=== PATIENT | male | born 1985 | race African-American/Black ===

== ENCOUNTER 2019-07-05 15:32 | Emergency (ER) | payer SELFPAY ==
[2019-07-05] VITALS (8 sets, daily range): BP systolic 171–221; BP diastolic 126–164; PULSE 64–76; RESP 16–21; TEMP 36.9; O2SAT 99–100
--- NOTE | ~2019-07-05 | XR_ITS ---
EXAMINATION: XR chest 2V DATE: 07/05/2019 17:07 INDICATION: Hypertension. Headache. TECHNIQUE: Frontal and lateral views of the chest were obtained. COMPARISON: None. FINDINGS: There is no pneumonia, pleural effusion, or pneumothorax. Cardiomegaly is noted. IMPRESSION: 1. Cardiomegaly. 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 ASTER IMPRESSION: 1. Cardiomegaly.
--- NOTE | ~2019-07-05 | CT_ITS ---
EXAMINATION: CT brain wo con INDICATION: Headache COMPARISON: 09/12/18 TECHNIQUE: Standard unenhanced head CT. The dose-length product (DLP) was 605.33 mGy-cm. The mA was a djusted according to patient size. Iterative reconstruction technique was employed. FINDINGS: There is no intracranial hemorrhage, acute infarction, or abnormal mass lesion. The ventric les are normal. There is no abnormal mass effect or midline shift. The reese-white matter differentiat ion is normal. The basal cisterns are patent. The orbits are normal. The paranasal sinuses, mastoids and calvarium are normal. IMPRESSION: 1. No acute intracranial abnormality. 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
--- NOTE | 2019-07-05 16:10 | PC.NURSE ---
Spoke with ERP Ulices in regards to getting a physician signed up to see pt, due to his repeated bp's of 219/142 with cerda and visual changes. ERP Ulices states to put a CT Brain w/o contrast in and one of the physicians will be in to see him. Order placed.
--- NOTE | 2019-07-05 16:47 | ED.HA ---
HPI - Headache General Chief Complaint: Headache Stated Complaint: JUAREZ Time Seen by Provider: 07/05/19 16:32 Source: patient and RN notes reviewed Mode of arrival: other Limitations: no limitations History of Present Illness HPI Narrative: Pt is a 34 y/o male who presents to the ED with c/o a headache that began yesterday morning. Pt took an Advil yesterday, but has had no relief of his sx. He notes that his pain has gotten worse and he thought he could sleep it off. He notes that he has not slept since yesterday at 9 am. Pt has a hx of HTN, but he states that he only takes his medication whenever he starts to have a headache. He states that he took his HTN medication yesterday, but he denies taking the medication today. Pt denies being around any sick contacts. 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 Pt also reports a subjective fever, diaphoresis, back pain, body aches, chills, nausea, vomiting, and a poor appetite, but denies a cough, congestion, sinus pressure, sore throat, SOB, CP, diarrhea, numbness, weakness, and dysuria. A nurse checked with the pharmacy and the pt last had his Lisinopril 20 mg filled was in August 2018 whenever he was discharged from [place] ED. elicited complaint: headache Pertinent past history: hypertension Onset (ago): day(s) (1) Location: generalized Relieving factors: nothing Associated symptoms: fever (subjective), nausea, vomiting and other (diaphoresis, back pain, body aches, chills, poor appetite) Treatments prior to arrival: none Related Data Home Medications Medication Instructions Recorded Confirmed lisinopril 20 mg PO DAILY 07/05/19 Allergies Allergy/AdvReac Type Severity Reaction Status Date / Time No Known Allergies Allergy Unverified 09/12/18 18:22 Review of Systems Review of Systems: All systems reviewed & are unremarkable except as noted in HPI and below Constitutional: Constitutional: Reports body ache(s), Reports chills, Reports fever(s) (subjective) and Reports poor appetite ENT: Denies sinus pressure, Denies sore throat and Denies other (congestion) Cardiovascular: Cardiovascular: Denies chest pain and Reports diaphoresis Respiratory: Respiratory: Denies cough and Denies dyspnea Gastrointestinal: Gastrointestinal: Denies diarrhea, Reports nausea and Reports vomiting Genitourinary: Genitourinary: Denies dysuria Musculoskeletal: Musculoskeletal: Reports back pain Neurologic: Reports headache(s), Denies numbness and Denies weakness PMFSH Past Medical History Medical History (Updated 07/05/19 @ 19:11 by Tiffanie Fernandez MD) HTN (hypertension) Surgical History Surgical History (Updated 07/05/19 @ 17:49 by Airam Bacon) No history of previous surgery Social History Social History (Updated 07/05/19 @ 17:49 by Airam Bacon) Smoking status: Never smoker Gender identity (if verbalized by the patient): Male Exam Const: General: cooperative, no acute distress and alert Nutritional Appearance: well nourished Orientation/consciousness: patient oriented x3 Limitations: no limitations HENMT: Mouth: Yes lip normal Throat: other (throat normal) Eyes: Conjunctivae: conjunctivae normal Pupils: Equal, round and reactive pupils present Resp: Effort & Inspection: normal respiratory effort Auscultation: clear to auscultation bilaterally Cardio: Rate: regular rate Rhythm: regular rhythm GI: GI Palp: Yes Soft to palpation and No Tenderness to palpation present (GI) Auscultation: normal bowel sounds Skin: General skin exam: normal color Neuro: General: patient oriented x3 Cognition (Neuro): normal cognition Speech: normal speech Extrem: General: normal to inspection, full ROM and no clubbing, cyanosis or edema Psych: Mental Status: mental status grossly normal Affect: normal affect Attitude: cooperative Course Course Emergency Course: Patient with uncontrolled hypertension. Patient has been noncompliant with medications and
[2019-07-05] MEDS: METOCLOPRAMIDE HCL INJ 10 MG/2 ML VIAL IV PUSH (17:03)
[2019-07-05] MEDS: KETOROLAC 30 MG/ML VIAL (*BKC) IV PUSH (17:03)
[2019-07-05 17:17] LABS: Basophils Percent Auto 0.4 % (0.2-1.2); Hematocrit 48.8 % (42.0-52.0); Hemoglobin 15.9 g/dL (14.0-18.0); Immature Granulocyte Absolute 0.01 K/mm3 (0.00-0.031); Immature Granulocyte Percent A 0.2 % (0-0.5); Lymphocytes Absolute Auto 0.49 K/mm3 (0.9-3.2); Lymphocytes Percent Auto 9.7 % (18.3-44.2); Mean Corpuscular HGB Conc 32.6 g/dl (32-36); Mean Corpuscular Hemoglobin 28.5 pg (26-34); Mean Corpuscular Volume 87.5 fl (80-100); Mean Platelet Volume 10.3 fl (7.4-10.4); Monocytes Absolute Auto 0.5 K/mm3 (0.1-0.6); Monocytes Percent Auto 9.7 % (2.6-8.5); Platelet Count Result 237 k/mm3 (150-375); Red Blood Count 5.58 M/mm3 (4.6-6.20); Red Cell Distribution Width 13.2 % (11.5-14.5)
[2019-07-05 17:30] LABS: Alanine Aminotransferase 31 U/L (4-50); Albumin Level 4.7 g/dL (3.5-5.1); Alkaline Phosphatase 91 U/L (38-126); Aspartate Amino Transferase 39 U/L (17-59); Bilirubin,Total 0.7 mg/dL (0.2-1.3); Blood Urea Nitrogen 9 mg/dL (9-20); Calcium 9.2 mg/dL (8.4-10.2); Carbon Dioxide 29 mmol/L (22-30); Chloride 97 mmol/L (98-107); Estimated CRCL calculation 106 ml/min; Estimated Glomerular Filt Rate > 60; Glucose 117 mg/dL (75-110); Potassium 3.5 mmol/L (3.4-5.0); Sodium 136 mmol/L (137-145)
[2019-07-05 17:39] LABS: Add Urine Microscopic? YES; Appearance Urine Clear (Clear); Bacteria Urine Trace /hpf; Bilirubin Urine Negative (Negative); Blood Urine Negative (Negative); Color Urine Yellow (Yellow); Glucose Urine UA Negative (Negative); Ketones Urine 1+ mg/dL (Negative); Leukocyte Esterase Ur Negative LEU/UL (Negative); Mucus Urine Heavy /lpf; Nitrate Urine Negative (Negative); Protein Urine 2+ mg/dL (Negative); RBC Urine 0-2 /hpf (0-2)
[2019-07-05 17:40] LABS: Specific Grav Ur 1.034 (1.001-1.035)
--- NOTE | 2019-07-05 18:02 | PC.NURSE ---
Spoke with rep from [facility] in [place], states that pt last filled a script for Lisinopril 20mg last August 2018. HO Fernandez informed, awaiting new orders.
--- NOTE | 2019-07-05 18:30 | PC.NURSE ---
Spoke with HO Fernandez, again, about treating pt BP of 177/126. HO Fernandez states We will not be treating his chronic hypertension here because that will not solve his problem of high blood pressure, he needs to be compliant with the blood pressure medication he is prescribed. There are studies that show that us giving a stat dose to lower his BP will not solve this problem, so I will treat his headache and then see how he feels. He is not having a stroke or a heart attack, so I'm not going to treat the BP.
[2019-07-05] MEDS: AMLODIPINE BESYLATE 5 MG TABLET 10 MG PO (19:09)
== END 2019-07-05 19:19 | disposition home or self-care (01) ==
PROVIDERS: Emergency Provider Emergency Medicine
DX: R51 Headache (principal); I10 Essential (primary) hypertension
CPT/HCPCS: 36415; 70450; 71046; 80053; 81001; 85025; 87804; 96374; 96375; 99284; A9270; J1885; J2765

== ENCOUNTER 2021-08-09 10:57 | Observation (INO) | payer MEDICAID, SELFPAY ==
[2021-08-09] VITALS (43 sets, daily range): BP systolic 158–215; BP diastolic 112–174; PULSE 71–108; RESP 12–43; TEMP 36.7–36.9; O2SAT 90–100; BMI 26.4; BMI 26.3
--- NOTE | ~2021-08-09 | CT_ITS ---
EXAMINATION: CT abdomen pelvis w con DATE: 08/09/2021 12:31 INDICATION: Upper abdominal pain. TECHNIQUE: Computed tomography (CT) of the abdomen and pelvis was performed with 100 mL Omnipaque 350 intravenous contrast. Automated exposure control and iterative reconstruction technique were employe d. The dose-length product was 688.53 mGy-cm. COMPARISON: None. FINDINGS: The visualized portions of the lung bases demonstrate septal thickening and groundglass [place], consistent with pulmonary edema. There is mild atelectasis bilaterally. There is a small righ t pleural effusion. Cardiomegaly is noted. No pericardial effusion. The liver is normal. The gallblad karsten is normal in size. Gallbladder wall thickening is likely secondary to interstitial edema. The spl een, pancreas, adrenal glands, and kidneys are normal. There is diverticulosis of the colon without e vidence of diverticulitis. The appendix is normal. There are no dilated loops of bowel. There is a sm all volume of pelvic ascites. There are no pathologically enlarged lymph nodes. There is mild thoraci c spondylosis. IMPRESSION: 1. Mild pulmonary edema. 2. Small right pleural effusion. 3. Cardiomegaly. 4. Small volume of pelvic ascites. 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
--- NOTE | ~2021-08-09 | XR_ITS ---
EXAMINATION: XR chest 1V portable DATE: 08/09/2021 12:52 INDICATION: Chest of breath. Chest tightness. TECHNIQUE: A single frontal view of the chest was obtained. COMPARISON: Chest 2 views 07/05/2019, CT abdomen and pelvis 08/09/2021 FINDINGS: There is a diffuse interstitial pattern, consistent with mild pulmonary edema. No pleural e ffusion or pneumothorax. Cardiomegaly is noted. IMPRESSION: 1. Mild pulmonary edema. 2. Cardiomegaly. 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
[2021-08-09 11:25] LABS: Basophils Percent Auto 0.6 % (0.2-1.2); Eosinophils Absolute Auto 0.1 K/mm3 (0-0.3); Hematocrit 40.9 % (42.0-52.0); Hemoglobin 13.1 g/dL (14.0-18.0); Immature Granulocyte Absolute 0.02 K/mm3 (0.00-0.031); Immature Granulocyte Percent A 0.3 % (0-0.5); Lymphocytes Absolute Auto 1.39 K/mm3 (0.9-3.2); Lymphocytes Percent Auto 22.1 % (18.3-44.2); Mean Corpuscular Hemoglobin 27.6 pg (26-34); Mean Corpuscular Volume 86.1 fl (80-100); Mean Platelet Volume 10.2 fl (7.4-10.4); Monocytes Absolute Auto 0.3 K/mm3 (0.1-0.6); Monocytes Percent Auto 5.4 % (2.6-8.5); Neutrophils Absolute Auto 4.5 K/mm3 (1.3-6.7); Neutrophils Percent Auto 70.6 % (45.5-73.1); Platelet Count Result 294 k/mm3 (150-375); Red Blood Count 4.75 M/mm3 (4.6-6.20); Red Cell Distribution Width 14.7 % (11.5-14.5); White Blood Count 6.3 K/mm3 (4.5-10.0)
[2021-08-09 11:38] LABS: Alanine Aminotransferase 51 U/L (4-50); Alkaline Phosphatase 105 U/L (38-126); Anion Gap 7 mmol/L (8-16); Aspartate Amino Transferase 41 U/L (17-59); Bilirubin,Total 1.4 mg/dL (0.2-1.3); Blood Urea Nitrogen 17 mg/dL (9-20); Calcium 8.8 mg/dL (8.4-10.2); Carbon Dioxide 23 mmol/L (22-30); Chloride 107 mmol/L (98-107); Estimated CRCL calculation 48 ml/min; Estimated Glomerular Filt Rate 43; Glucose 113 mg/dL (65-110); Lipase 44 U/L (23-300); Potassium 4.2 mmol/L (3.4-5.0); Sodium 137 mmol/L (137-145)
[2021-08-09 11:48] LABS: Add Urine Microscopic? YES; Appearance Urine Cloudy (Clear); Bilirubin Urine Negative (Negative); Blood Urine Negative (Negative); Color Urine Amber (Yellow); Glucose Urine UA Negative (Negative); Ketones Urine Negative (Negative); Leukocyte Esterase Ur Negative LEU/UL (Negative); Mucus Urine Rare /lpf; Nitrate Urine Negative (Negative); Protein Urine 3+ mg/dL (Negative); RBC Urine 0-2 /hpf (0-2); Specific Grav Ur 1.024 (1.001-1.035); WBC Urine 0-3 /hpf
--- NOTE | 2021-08-09 12:12 | ED.ABDPAIN ---
HPI - Abdominal Pain General Chief Complaint: Abdominal Pain Stated Complaint: Shortness of breath abd pain Time Seen by Provider: 08/09/21 11:40 Source: patient, family and RN notes reviewed Mode of arrival: ambulatory Limitations: no limitations History of Present Illness HPI narrative: Patient is 36 years old -[place] male presents to the ED with shortness of breath for at least 2 weeks, epigastric pain for at least 1 week, patient denies any fever, chills, nausea, vomiting, diarrhea, constipation, urinary symptoms, chest pain or back pain. History of hypertension on Norvasc and lisinopril, patient reports that his blood pressure usually runs high all the time since he was a child. Blood pressure on arrival was 215/166. Patient denies a history of Covid infection or Covid vaccination. Last blood pressure intake was yesterday Related Data Home Medications Medication Instructions Recorded Confirmed lisinopril 20 mg PO DAILY 07/05/19 Allergies Allergy/AdvReac Type Severity Reaction Status Date / Time No Known Allergies Allergy Unverified 09/12/18 18:22 Review of Systems Review of Systems: CONSTITUTIONAL: Denies fever, chills, or sweats. EYES: Denies visual changes, redness, or discharge. ENT: Denies rhinorrhea, congestion, sore throat, or otalgia. CARDIOVASCULAR: Denies chest pain, palpitations, or edema. RESPIRATORY: Denies cough or dyspnea. GASTROINTESTINAL: Denies abdominal pain, nausea, vomiting, or diarrhea. GENITOURINARY: Denies dysuria or hematuria. SKIN: Denies rash or itching. MUSCULOSKELETAL: Denies back pain, joint pain, or myalgia. NEUROLOGIC: Denies headache, numbness, or weakness. PSYCHIATRIC: Denies anxiety or depression. PMFSH Past Medical History Medical History HTN (hypertension) Surgical History Surgical History No history of previous surgery Social History Social History Smoking status: Never smoker Gender identity (if verbalized by the patient): Male Exam Narrative: General appearance: Well-developed, well-nourished Skin: Normal color Head: Normocephalic, nontraumatic Eyes: Clear conjunctiva ENT: Oropharynx normal, ears normal, nose normal Neck: Supple, nontender Chest and respiratory: Airway patent, no respiratory distress, no accessory muscle use Heart: Regular rate/rhythm Abdomen: Severe diffuse tenderness epigastric right upper quadrant and right lower quadrant Vascular: Normal peripheral pulses, normal capillary refill. 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 Date: 08/09/21 Time: 14:14 Vital Signs Vital signs: Vital Signs Temperature 36.8 C 08/09/21 11:03 Pulse Rate 108 H 08/09/21 11:03 Respiratory Rate 32 H 08/09/21 11:03 Blood Pressure 215/166 H 08/09/21 11:03 Pulse Oximetry 97 08/09/21 11:03 Temperature 36.8 C 08/09/21 11:03 Pulse Rate 77 08/09/21 13:00 Respiratory Rate 29 H 08/09/21 13:00 Blood Pressure 184/134 H 08/09/21 12:59 Pulse Oximetry 94 08/09/21 13:00 MDM - Abdominal Pain Lab Data Result diagrams: 08/09/21 11:20 08/09/21 11:20 Labs: Lab Results 08/09/21 08/09/21 08/09/21 Range/Units 11:20 11:20 11:20 WBC 6.3 (4.5-10.0) K/mm3 RBC 4.75 (4.6-6.20) M/mm3 Hgb 13.1 L (14.0-18.0) g/dL Hct 40.9 L (42.0-52.0) % M
[2021-08-09] MEDS: LABETALOL HCL INJ 100 MG/20 ML VIAL 20 MG IV PUSH ×2 (12:17→13:00)
[2021-08-09 13:37] LABS: NT Pro B Type Natriuretic Pept 5720 pg/mL (5-100)
[2021-08-09] MEDS: lisinopriL 20 MG TABLET PO (14:10)
[2021-08-09] MEDS: amLODIPine BESYLATE 5 MG TABLET 10 MG PO (14:10)
[2021-08-09] MEDS: FUROSEMIDE INJ 100 MG/10 ML VIAL 80 MG IV PUSH (14:14)
[2021-08-09] MEDS: NITROGLYCERIN OINTMENT 1 INCH DOSE TRANSDERM ×2 (14:15→14:16)
--- NOTE | 2021-08-09 14:15 | ECG_ITS ---
Measurements Intervals [place] Rate: 80 P: 32 ME: 176 QRS: -87 QRSD: 112 T: 189 QT: 457 QTc: 528 Interpretive Statements SINUS RHYTHM LEFT ATRIAL ENLARGEMENT [-0.15mV P WAVE IN V1/V2] MARKED LEFT AXIS DEVIATION [QRS AXIS < -30] POSSIBLE ANTERIOR MYOCARDIAL INFARCTION , PROBABLY OLD [30 ms Q WAVE IN V3/V4, OR R < 0.2 mV IN V4] MARKED T-WAVE ABNORMALITY, CONSIDER LATERAL ISCHEMIA [-0.5+ mV T WAVE IN I/aVL/V5/V6] NO PREVIOUS ECG AVAILABLE FOR COMPARISON Electronically Signed On 08-09-2021 18:47:05 CDT by Tami Donohue M.D.
[2021-08-09 14:44] LABS: Troponin I 0.053 ng/mL (0.000-0.034)
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
[2021-08-09 15:38] LABS: Amphetamine Screen Urine Negative (Negative); Barbiturate Screen Urine Negative (Negative); Benzodiazepines Screen Urine Negative (Negative); Cannabinoid Screen Urine Positive (Negative); Cocaine Screen Urine Negative (Negative); Methadone Screen Urine Negative (Negative); Opiate Screen Urine Negative (Negative); Phencyclidine Screen Urine Negative (Negative)
[2021-08-09] MEDS: ASPIRIN 81 MG CHEWABLE TABLET 324 MG PO (16:11)
--- NOTE | 2021-08-09 16:20 | ADMGEN ---
This patient, Manuel Headley, was admitted to IMU Room 207-01 at 1617 on 08/09/2021. Report received from Cherelle RAWLS. Patient/family oriented to hospital policies and general routines including ID bracelet, bed and alarms, visiting hours, pain management, procedures, bathroom and other care routines, personal items, smoking policy, room service/diet, and visiting hours. Information on how to activate the Rapid Response Team has been discussed. Patient/Family are encouraged to report perceived risks to care and to ask questions if they do not understand what they are told or what they should do.
[2021-08-09] MEDS: FUROSEMIDE INJ 40 MG/4 ML VIAL IV PUSH (21:15)
[2021-08-10] VITALS (16 sets, daily range): BP systolic 152–172; BP diastolic 113–136; PULSE 72–100; RESP 15–24; TEMP 36.2–36.9; O2SAT 93–100
[2021-08-10] MEDS: NITROGLYCERIN OINTMENT 1 INCH DOSE TRANSDERM ×5 (00:18→23:29)
[2021-08-10 05:22] LABS: Troponin I 0.044 ng/mL (0.000-0.034)
[2021-08-10 05:45] LABS: Anion Gap 3 mmol/L (8-16); Blood Urea Nitrogen 21 mg/dL (9-20); Calcium 8.2 mg/dL (8.4-10.2); Carbon Dioxide 29 mmol/L (22-30); Chloride 103 mmol/L (98-107); Estimated CRCL calculation 44 ml/min; Estimated Glomerular Filt Rate 39; Glucose 113 mg/dL (65-110); Potassium 3.4 mmol/L (3.4-5.0); Sodium 135 mmol/L (137-145)
--- NOTE | 2021-08-10 06:00 | ECG_ITS ---
Measurements Intervals [place] Rate: 79 P: 27 MD: 166 QRS: -55 QRSD: 118 T: 195 QT: 441 QTc: 507 Interpretive Statements SINUS RHYTHM LEFT ATRIAL ENLARGEMENT [-0.15mV P WAVE IN V1/V2] MARKED LEFT AXIS DEVIATION [QRS AXIS < -30] LEFT VENTRICULAR HYPERTROPHY AND ST-T CHANGE [VOLTAGE CRITERIA PLUS ST/T ABNORMALITY] COMPARED TO ECG 08/09/2021 14:42:15 NO SIGNIFICANT DIFFERENCE Electronically Signed On 08-10-2021 16:08:34 CDT by Amauri Lees M.D.
[2021-08-10] MEDS: PERFLUTREN LIPID MICROSPHERES 1.5 ML VIAL DILUTED TO 10 ML TOTAL VOLUME IV PUSH (08:44)
--- NOTE | 2021-08-10 08:44 | IVDEFINITY ---
Prior to administration of IV Definity the patient was educated on the risks and benefits of the imaging enhancing agent including potential adverse side effects. The patient verbalized understanding. Allergies were verified. No exclusion criteria were identified and at least one of the following inclusion criteria were met: 1) physician request, 2) patient technically difficult to image (per the [place] [employer]chocardi[employer] guidelines of two or more segments not discernable within the apical view), or 3) questionable left ventricular function. ?
[2021-08-10] MEDS: ASPIRIN 81 MG CHEWABLE TABLET PO (10:24)
[2021-08-10] MEDS: FUROSEMIDE INJ 40 MG/4 ML VIAL IV PUSH (10:24)
--- NOTE | 2021-08-10 10:41 | PM.IMPN ---
Progress Note: A&P Assessment and Plan (1) CHF (congestive heart failure): Qualifiers: Heart failure chronicity: acute Heart failure type: unspecified Qualified Code(s): I50.9 - Heart failure, unspecified Code(s): I50.9 - Heart failure, unspecified Status: Acute Assessment and Plan: MONITOR VITAL SIGNS, I&OS, BUN/CREATININE, DAILY WEIGHTS, NEURO STATUS AND PATIENT IS A FALL RISK MONITOR SERUM ELECTROLYTES, KEEP SERUM POTASSIUM>4 AND SERUM MAGNESIUM>2 AND CBC Pending ECHOCARDIOGRAM LASIX 40 MG IV Q12H CONSULT CARDIOLOGY FOR FURTHER MANAGEMENT, APPRECIATE ASSISTANCE AND RECOMMENDATIONS (2) MIHAI (acute kidney injury): Code(s): N17.9 - Acute kidney failure, unspecified Status: Acute Assessment and Plan: MONITOR RENAL FUNCTION, DUE TO THE PULMONARY EDEMA FOUND IN ITS IMAGING HOLDING ON IV FLUIDS, REASSESS PATIENT'S CLINICAL COURSE Possibly related to hypertensive emergency (3) Chest pain: Code(s): R07.9 - Chest pain, unspecified Status: Acute Assessment and Plan: MONITOR VITAL SIGNS, I&OS, CHEST PAIN, SHORTNESS OF BREATH AND PATIENT IS A FALL RISK MONITOR SERIAL TROPONINS, SERUM ELECTROLYTES, AND CBC KEEP SERUM POTASSIUM >4 AND KEEP MAGNESIUM >2 CARDIOLOGY CONSULTED, APPRECIATE ASSISTANCE AND RECOMMENDATIONS NITRO PASTE APPLIED TO THE CHEST CONSIDER ADDING ATORVASTATIN 40 MG DAILY, ASPIRIN 81 MG DAILY AND METOPROLOL TARTRATE 25 MG P.O. B.I.D. (4) Hypertensive emergency: Code(s): I16.1 - Hypertensive emergency Status: Acute Assessment and Plan: RESUME ANTIHYPERTENSIVE MEDICATIONS P.R.N. HYDRALAZINE Nitro placed applied to chest Patient has end-organ dysfunction, renal function worsening, elevated troponin, and BNP Subjective Date/time seen: 08/10/21 10:41 Patient is alert and oriented this morning. He has an echocardiogram performed this morning. Patient denies any acute chest pain, shortness a breath, lower extremity swelling. Patient reports increased urinary output. However he is receiving 40 of furosemide b.i.d.. Pending paperwork from [facility]. No acute events overnight Review of Systems Review of Systems: All systems reviewed & are unremarkable except as noted in HPI and below Exam Narrative: General: No acute distress. Mental Status: Awake, alert and oriented to person, place, and time with clear speech. Skin: Skin in warm, dry and intact without rashes or lesions. Head: Normocephalic and atraumatic. Eyes: Conjunctivae are clear without exudates or hemorrhage. Sclera is non-icteric. EOM are intact, PERRLA. Ears: The external ear and canal are non-tender and without swelling or discharge. Nose: Nasal mucosa is pink and moist. Septum midline. Nares patent bilaterally. Throat: Oral mucosa pink and moist with good dentition. Tongue midline. Neck: The neck supple without adenopathy. Trachea midline. No JVD. Cardiac: S1 and S2 regular rate and rhythm. No murmurs, gallops, or rubs auscultated. Respiratory: Chest wall symmetric, nontender and without deformity or trauma. Respirations even and unlabored. Lung sounds are clear to auscultation in all lobes bilaterally without wheezes, rhonchi, or rales. Abdominal: Abdomen soft, round and non-tender to palpation. Bowel sounds present and normoactive in all 4 quadrants. Spine: Neck and back with grossly normal curvature, no deformity in appearance or signs of trauma. Extremities: Upper and lower extremities atraumatic without tenderness or deformity. Full range of motion and muscle strength 5/5 to all extremities bilaterally. Neurological: Full and symmetric motor and light touch sensation bilaterally. Cranial nerves II-XII grossly intact. Objective Data Vital Signs Vital Signs: Vital Signs - 24 hr 08/09/21 11:03 08/09/21 11:06 08/09/21 11:09 Temperature 98.2 F Pulse Rate 108 H 102 H 103 H Respiratory Rate 32 H 27 H 35 H Blood Pressure 215/166 H 210/174 H Pulse Ox
--- NOTE | 2021-08-10 12:40 | PM.CNCAR ---
Assessment and Plan Additional Plan 36-year-old man unfortunately with longstanding hypertension and appears to have evidence of hypertensive heart disease as well as probably hypertensive kidney disease as well. His blood pressure was exceedingly high on admission. He has questionable compliance with this medication. The amlodipine and lisinopril have been improved. Echocardiogram as mentioned above has been performed earlier today but has not yet been interpreted. I would like to review that examination before making further recommendations regarding his blood pressure regimen. Troponin levels were done and are not indicative of an acute coronary syndrome. He has a modest low level elevation in troponin which is related to his hypertension in combination with his renal insufficiency. It is exceedingly important that this patient has follow-up with hypertension specialists were upon discharge from the hospital this unfortunately young man appears to have hypertensive heart disease well as hypertensive renal disease needs to have close follow-up and meticulous control of his blood pressure upon discharge. His prognosis for the senior living is extremely poor if the pattern of emergency rooms treating his blood pressure continues Amauri Lees MD [facility] History of Present Illness History of Present Illness Consult date/time: 08/10/21 12:40 Consult reason: hypertension Reason For Visit: CHF, Uncontrolled Hypertension, ELevated troponin, Narrative: This is a 36-year-old black male am seeing this afternoon at the request of the hospitalist for assistance with the evaluation and management of hypertension and also because of an elevation in his troponin level that was sampled on admission. This patient has longstanding hypertension since he says he was a teenager. He does not have a physician outside of the hospital to provide follow-up of his hypertension he says that when he is feeling poorly he comes to the hospital emergency room and receives treatment or it is sometimes admission to the hospital. He according to the records he has prescriptions for amlodipine and lisinopril for this. There is questionable compliance with these medications. He states that he was feeling increasingly short of breath in several days prior to coming in the hospital because of shortness of breath he came to this hospital's emergency room and was evaluated. His evaluation showed his blood pressure to be exceedingly high and he had chest x-ray and physical exam evidence of mild pulmonary congestion. His laboratory data also shows evidence of some renal insufficiency and troponin level was elevated to a low level but has been flat. His chest x-ray my personal review shows moderate enlargement of the cardiac silhouette. He is comfortable at this time offers no complaints he has been treated with his medications including lisinopril amlodipine and p.r.n. labetalol. He has also been given some furosemide. He says his breathing is much better at this time. ECG shows sinus rhythm with impressive LVH with secondary repolarization abnormalities. An echocardiogram was ordered and was done earlier today which has not yet been interpreted. In this setting I am seeing him in consultation. Review of Systems Constitutional: Constitutional: Reports no additional constitutional complaints Eyes: Eyes: Reports no additional eye complaints ENT: Reports system reviewed and no additional complaints, except as documented Cardiovascular: Cardiovascular: Reports as per HPI Respiratory: Respiratory: Reports dyspnea on exertion Gastrointestinal: Gastrointestinal: Reports no additional gastrointestinal complaints Musculoskeletal: Musculoskeletal: Reports no additional musculoskeletal complaints Integumentary/Breasts: Skin/Breast: Reports system reviewed and no additional complaints, except as docu Neurologic: Reports system reviewed and no additional complaints, except as documented
--- NOTE | 2021-08-10 14:58 | ECHO_ITS ---
Patient Info Name: Manuel Headley Age: 36 years : 1985 Gender: Male Ht: 72 in Wt: 194 lbs BSA: 2.13 m2 HR: 79 bpm BP: 158 / 113 mmHg Heart Rhythm: Sinus Rhythm Technical Quality: Fair Exam Date: 08/10/2021 6:53 AM Exam Location: [facility] Pulmonary Patient Status: Outpatient Admit Date: 08/09/2021 Staff Ordering Physician: Susie Cota APRN [employer]locking Pavement Installer: Sharron Odell RDCS Attending Provider: Giovanna Bruce MD Referring Physician: Cipriano WEATHERS; Exam Type: CA echo dop color flow w con Study Info Indications - sob Complete two-dimensional, color flow and Doppler transthoracic echocardiogram is performed with contrast to opacify the left ventricle and to improve the deliniation of the left ventricle endocardial borders. Contrast/Agitated Saline Contrast/Ag. Saline: Definity Amount: 2.00 ml Administered By: Sharron Odell RDCS Existing IV Access: Yes IV Access Condition: patent with no signs of infiltration Summary 1. There is moderate concentric increased left ventricular wall thickness. 2. Left ventricular chamber dimension is mildly enlarged. 3. Left ventricular systolic function is moderately reduced, estimated at 30-35%. 4. Definity contrast used to improve visualization. 5. Left atrial chamber dimension is severely enlarged. 6. There is trace mitral valve regurgitation. Left Ventricle Left ventricular chamber dimension is mildly enlarged. Left ventricular systolic function is moderately reduced, estimated at 30-35%. There is moderate concentric increased left ventricular wall thickness. The left ventricular diastolic function is grade II diastolic dysfunction. Definity contrast used to improve visualization. Right Ventricle Right ventricular chamber dimension is normal. Left Atria Left atrial chamber dimension is severely enlarged. Right Atria Right atrial chamber dimension is mildly enlarged. Aortic Valve The aortic valve is normal. Pulmonic Valve The pulmonic valve is normal. Mitral Valve The mitral valve has normal leaflets. There is trace mitral valve regurgitation. Tricuspid Valve The tricuspid valve leaflets are normal. Pericardium/Pleural The pericardium appears normal. Aorta The aortic root size at the sinus of Valsalva is normal. Left Ventricular Outflow Tract Name Value Normal LVOT 2D LVOT Diameter 2.39 cm LVOT Doppler LVOT Peak Gradient 3 mmHg LVOT Mean Gradient 1 mmHg LVOT VTI 13.09 cm LVOT VTI/AV VTI Ratio 0.66 LVOT Stroke Volume 58.59 ml LVOT CO 4.17 l/min LVOT CI 1.96 L/min/m2 Pulmonic Valve Name Value Normal RVOT Doppler
--- NOTE | 2021-08-10 16:18 | PC.NURSE ---
Documentation was done in error under previous nurse name. All documentation from 8 am on August 10, 2021 was performed by me, with the initials CLAUDIA.
[2021-08-10] MEDS: amLODIPine BESYLATE 5 MG TABLET 10 MG PO (16:46)
[2021-08-10] MEDS: lisinopriL 20 MG TABLET PO (16:47)
[2021-08-10] MEDS: carvediloL 12.5 MG TABLET PO (20:03)
[2021-08-11] VITALS (8 sets, daily range): BP systolic 144–170; BP diastolic 100–120; PULSE 65–81; RESP 15–20; TEMP 36.5–37.3; O2SAT 99–100
[2021-08-11 05:07] LABS: Basophils Percent Auto 0.6 % (0.2-1.2); Eosinophils Absolute Auto 0.2 K/mm3 (0-0.3); Eosinophils Percent Auto 2.4 % (0-4.4); Hemoglobin 12.5 g/dL (14.0-18.0); Immature Granulocyte Absolute 0.02 K/mm3 (0.00-0.031); Immature Granulocyte Percent A 0.3 % (0-0.5); Lymphocytes Absolute Auto 1.68 K/mm3 (0.9-3.2); Lymphocytes Percent Auto 24.9 % (18.3-44.2); Mean Corpuscular HGB Conc 32.1 g/dl (32-36); Mean Corpuscular Hemoglobin 27.5 pg (26-34); Mean Corpuscular Volume 85.9 fl (80-100); Mean Platelet Volume 10.1 fl (7.4-10.4); Monocytes Absolute Auto 0.6 K/mm3 (0.1-0.6); Monocytes Percent Auto 8.8 % (2.6-8.5); Neutrophils Absolute Auto 4.3 K/mm3 (1.3-6.7); Platelet Count Result 301 k/mm3 (150-375); Red Blood Count 4.54 M/mm3 (4.6-6.20); Red Cell Distribution Width 14.6 % (11.5-14.5); White Blood Count 6.7 K/mm3 (4.5-10.0)
[2021-08-11 05:19] LABS: Alanine Aminotransferase 35 U/L (4-50); Albumin Level 3.4 g/dL (3.5-5.1); Alkaline Phosphatase 89 U/L (38-126); Anion Gap 4 mmol/L (8-16); Aspartate Amino Transferase 28 U/L (17-59); Bilirubin,Total 0.5 mg/dL (0.2-1.3); Blood Urea Nitrogen 23 mg/dL (9-20); Calcium 8.2 mg/dL (8.4-10.2); Carbon Dioxide 27 mmol/L (22-30); Chloride 104 mmol/L (98-107); Estimated CRCL calculation 46 ml/min; Estimated Glomerular Filt Rate 41; Glucose 91 mg/dL (65-110); Magnesium 1.9 mg/dL (1.6-2.3); Potassium 3.9 mmol/L (3.4-5.0); Sodium 135 mmol/L (137-145)
[2021-08-11] MEDS: NITROGLYCERIN OINTMENT 1 INCH DOSE TRANSDERM ×2 (06:22→12:48)
[2021-08-11] MEDS: carvediloL 12.5 MG TABLET PO (08:41)
[2021-08-11] MEDS: FUROSEMIDE 20 MG TABLET PO (08:41)
[2021-08-11] MEDS: amLODIPine BESYLATE 5 MG TABLET 10 MG PO (08:41)
[2021-08-11] MEDS: lisinopriL 20 MG TABLET PO (08:42)
[2021-08-11] MEDS: ASPIRIN 81 MG CHEWABLE TABLET PO (08:43)
--- NOTE | 2021-08-11 12:09 | PM.PNCARD ---
Progress Note: A&P Assessment and Plan (1) CHF (congestive heart failure): Qualifiers: Heart failure chronicity: acute Heart failure type: unspecified Qualified Code(s): I50.9 - Heart failure, unspecified Code(s): I50.9 - Heart failure, unspecified Status: Acute Assessment and Plan: Systolic. EF around 35%. Likely related to longstanding severe hypertension. Continue MERRICK-inhibitor and carvedilol. Up titration gradually over time. Will DC topical nitroglycerin at this point. (2) Hypertension: Qualifiers: Hypertension type: unspecified Qualified Code(s): I10 - Essential (primary) hypertension Code(s): I10 - Essential (primary) hypertension Status: Acute Assessment and Plan: Blood pressure is better albeit still elevated. Do not want to lower blood pressure too fast as this could cause a neurological event. Continue lisinopril, carvedilol, amlodipine (3) Hypertensive emergency: Code(s): I16.1 - Hypertensive emergency Status: Acute Assessment and Plan: Better controlled. (4) MIHAI (acute kidney injury): Code(s): N17.9 - Acute kidney failure, unspecified Status: Acute Assessment and Plan: Per nephrology Subjective Date/time seen: 08/11/21 12:09 Interval history: 36-year-old admitted for severe high blood pressure Date of service 08/11/2021: Blood pressure still elevated but better. He has no chest pain or shortness of breath. No syncope. Review of Systems Constitutional: Constitutional: Reports no additional constitutional complaints Eyes: Eyes: Reports no additional eye complaints ENT: Reports system reviewed and no additional complaints, except as documented Cardiovascular: Cardiovascular: Reports as per HPI and Reports dyspnea on exertion Respiratory: Respiratory: Reports dyspnea on exertion Gastrointestinal: Gastrointestinal: Reports no additional gastrointestinal complaints Musculoskeletal: Musculoskeletal: Reports no additional musculoskeletal complaints Integumentary/Breasts: Skin/Breast: Reports system reviewed and no additional complaints, except as docu Neurologic: Reports system reviewed and no additional complaints, except as documented Endocrine: Endocrine: Reports no additional endocrine complaints Hematologic/Lymphatic: Hematologic/Lymphatic: Reports no additional hematologic/lymphatic complaints Allergic/Immunologic: Allergic/Immunologic: Reports no additional allergic/immunologic complaints Exam Const: General: comfortable and no acute distress Other: Pleasant thin fit looking gentleman no distress HENMT: Mouth: Yes moist mucous membranes Eyes: Sclera: sclerae normal Neck: Neck: supple and no JVD Carotids: bruit Resp: Effort & Inspection: normal respiratory effort Auscultation: clear to auscultation bilaterally Cardio: Rate: regular rate Rhythm: regular rhythm Other: No murmur S4 is audible GI: Auscultation: normal bowel sounds Skin: General skin exam: normal color Neuro: Cognition (Neuro): normal cognition Extrem: General: normal to inspection Objective Data Vital Signs Vital Signs: Vital Signs - 24 hr 08/10/21 14:00 08/10/21 16:00 08/10/21 16:41 Temperature 36.4 C Pulse Rate 80 72 Respiratory Rate 22 H Blood Pressure 166/121 H Pulse Oximetry 96 97 08/10/21 18:00 08/10/21 19:36 08/10/21 20:00 Temperature 36.2 C L Pulse Rate 83 85 81 Respiratory Rate 15 15 Blood Pressure 172/132 H Pulse Oximetry 99 99 08/10/21 20:03 08/10/21 22:00 08/10/21 23:54 Temperature 36.8 C Pulse Rate 81 100 78 Respiratory Rate 16 Blood Pressure 152/125 H Pulse Oximetry 100 08/11/21 00:00 08/11/21 04:00 08/11/21 08:00 Temperature 36.5 C 37.3 C Pulse Rate 81 81 71 Respiratory Rate 15 15 20 Blood Pressure 154/100 H 170/120 H Pulse Oximetry 99 99 100 08/11/21 08:09 08/11/21 08:41 08/11/21 10:00 Temperature Pulse Rate 75 73
--- NOTE | 2021-08-11 12:28 | PM.IMPN ---
Progress Note: A&P Assessment and Plan (1) CHF (congestive heart failure): Qualifiers: Heart failure chronicity: acute Heart failure type: unspecified Qualified Code(s): I50.9 - Heart failure, unspecified Code(s): I50.9 - Heart failure, unspecified Status: Acute Assessment and Plan: MONITOR VITAL SIGNS, I&OS, BUN/CREATININE, DAILY WEIGHTS, NEURO STATUS AND PATIENT IS A FALL RISK MONITOR SERUM ELECTROLYTES, KEEP SERUM POTASSIUM>4 AND SERUM MAGNESIUM>2 AND CBC Echocardiogram revealed an LVEF of 35%, 2/2 longstanding severe hypertension LASIX 40 MG IV Q12H CONSULT CARDIOLOGY FOR FURTHER MANAGEMENT, APPRECIATE ASSISTANCE AND RECOMMENDATIONS (2) MIHAI (acute kidney injury): Code(s): N17.9 - Acute kidney failure, unspecified Status: Acute Assessment and Plan: MONITOR RENAL FUNCTION, DUE TO THE PULMONARY EDEMA FOUND IN ITS IMAGING HOLDING ON IV FLUIDS, REASSESS PATIENT'S CLINICAL COURSE Possibly related to hypertensive emergency (3) Chest pain: Code(s): R07.9 - Chest pain, unspecified Status: Acute Assessment and Plan: MONITOR VITAL SIGNS, I&OS, CHEST PAIN, SHORTNESS OF BREATH AND PATIENT IS A FALL RISK MONITOR SERIAL TROPONINS, SERUM ELECTROLYTES, AND CBC KEEP SERUM POTASSIUM >4 AND KEEP MAGNESIUM >2 CARDIOLOGY CONSULTED, APPRECIATE ASSISTANCE AND RECOMMENDATIONS Discontinue nitropaste (4) Hypertensive emergency: Code(s): I16.1 - Hypertensive emergency Status: Acute Assessment and Plan: RESUME ANTIHYPERTENSIVE MEDICATIONS Added carvedilol Patient has end-organ dysfunction, renal function worsening, elevated troponin, and BNP -resolving Subjective Date/time seen: 08/11/21 12:28 Patient is alert and oriented x4. He was evaluated this morning at bedside. Patient did not appear to be in acute distress. Blood pressure appears to be mildly controlled at this point. Cardiology discontinued nitropaste to the chest and continue to monitor the patient's blood pressure while on carvedilol, lisinopril and amlodipine. Echocardiogram performed revealed LV systolic dysfunction, LVEF 35%. This is due to the patient's longstanding hypertension. Discussed with patient will follow-up with cardiology medication management. Patient reported that he does not have difficulty affording medications. He does have medical noncompliance issues, but is unrelated to financial means. No acute events reported by the RN during the night. Patient denies any chest pain, shortness a breath, nausea, vomiting upset stomach or diarrhea. Review of Systems Review of Systems: All systems reviewed & are unremarkable except as noted in HPI and below Exam Narrative: General: No acute distress. Mental Status: Awake, alert and oriented to person, place, and time with clear speech. Skin: Skin in warm, dry and intact without rashes or lesions. Head: Normocephalic and atraumatic. Eyes: Conjunctivae are clear without exudates or hemorrhage. Sclera is non-icteric. EOM are intact, PERRLA. Ears: The external ear and canal are non-tender and without swelling or discharge. Nose: Nasal mucosa is pink and moist. Septum midline. Nares patent bilaterally. Throat: Oral mucosa pink and moist with good dentition. Tongue midline. Neck: The neck supple without adenopathy. Trachea midline. No JVD. Cardiac: S1 and S2 regular rate and rhythm. No murmurs, gallops, or rubs auscultated. Respiratory: Chest wall symmetric, nontender and without deformity or trauma. Respirations even and unlabored. Lung sounds are clear to auscultation in all lobes bilaterally without wheezes, rhonchi, or rales. Abdominal: Abdomen soft, round and non-tender to palpation. Bowel sounds present and normoactive in all 4 quadrants. Spine: Neck and back with grossly normal curvature, no deformity in appearance or signs of trauma. Extremities: Upper and lower extremities atraumatic without tenderness or deformity. Full range of motion
--- NOTE | 2021-08-11 14:06 | PM.DS ---
DS: Admitting Diagnosis Discharge Date 08/11/2021 Admitting Diagnosis CHF Hypertension urgency MIHAI DS: Discharge Diagnosis Discharge Diagnosis (1) CHF (congestive heart failure): Qualifiers: Heart failure chronicity: acute Heart failure type: unspecified Qualified Code(s): I50.9 - Heart failure, unspecified Code(s): I50.9 - Heart failure, unspecified Status: Acute Assessment and Plan: MONITOR VITAL SIGNS, I&OS, BUN/CREATININE, DAILY WEIGHTS, NEURO STATUS AND PATIENT IS A FALL RISK MONITOR SERUM ELECTROLYTES, KEEP SERUM POTASSIUM>4 AND SERUM MAGNESIUM>2 AND CBC Echocardiogram revealed an LVEF of 35%, 2/2 longstanding severe hypertension LASIX 40 MG IV Q12H CONSULT CARDIOLOGY FOR FURTHER MANAGEMENT, APPRECIATE ASSISTANCE AND RECOMMENDATIONS (2) MIHAI (acute kidney injury): Code(s): N17.9 - Acute kidney failure, unspecified Status: Acute Assessment and Plan: MONITOR RENAL FUNCTION, DUE TO THE PULMONARY EDEMA FOUND IN ITS IMAGING HOLDING ON IV FLUIDS, REASSESS PATIENT'S CLINICAL COURSE Possibly related to hypertensive emergency (3) Chest pain: Code(s): R07.9 - Chest pain, unspecified Status: Acute Assessment and Plan: MONITOR VITAL SIGNS, I&OS, CHEST PAIN, SHORTNESS OF BREATH AND PATIENT IS A FALL RISK MONITOR SERIAL TROPONINS, SERUM ELECTROLYTES, AND CBC KEEP SERUM POTASSIUM >4 AND KEEP MAGNESIUM >2 CARDIOLOGY CONSULTED, APPRECIATE ASSISTANCE AND RECOMMENDATIONS Discontinue nitropaste (4) Hypertensive emergency: Code(s): I16.1 - Hypertensive emergency Status: Acute Assessment and Plan: RESUME ANTIHYPERTENSIVE MEDICATIONS Added carvedilol Patient has end-organ dysfunction, renal function worsening, elevated troponin, and BNP -resolving DS: Summary Hospital Course Hospital Course: Patient is a 36-year-old male with a past medical history of hypertension and marijuana usage. Patient presented to [facility] [place] [facility] with complaints of shortness of breath for the last 2 weeks. Patient reports associated epigastric pain x1 week. He denies any fever, chills, nausea, vomiting, diarrhea or urinary symptoms. Patient does have a history of hypertension is managed by his primary care physician has been placed on Norvasc and lisinopril. Patient reports that his blood pressure have been elevated since childhood. On arrival to the emergency department his blood pressure was 215/166 and after administration of labetalol x2 the patient's blood pressure decreased to 176/140. He will be resumed on his home medications and monitor closely with p.r.n. hydralazine. Of note the patient reports that he has lost approximately 25 lb in 8 months. While in the emergency department labs and imaging were obtained with hemoglobin of 13.1, this is decreased from the patient's baseline of 15.9, hematocrit 40.9, WBC 6.3 and a platelet count of 294. Sodium 137, potassium 4.2, creatinine 2.1-patient's baseline is 1.1, will avoid nephrotoxic medications for. Glucose is mildly elevated at 113 and his T bili was 1.4. Patient's troponin was mildly elevated at 0.05 and repeat became 0.053 with an elevated BNP of 57 20. Cardiology was consulted from the emergency department will follow in consultation. A chest x-ray was also performed which revealed mild pulmonary edema in that he was administered forty 80 mg of Lasix x1 followed by 40 mg of Lasix b.i.d. during his hospitalization. The patient also has a 1 in nitroglycerin ointment applied to his chest. During the patient's hospitalization an echocardiogram was performed and the patient was placed on 40 mg of furosemide b.i.d. decreased down to 20 mg daily. Cardiology was consulted for further evaluation and management of the patient's CHF. The echocardiogram that was performed revealed an LVEF of 35%. His ECG showed sinus rhythm with impressive LVH with secondary repolarization abnormalities. His mi
== END 2021-08-11 14:43 | disposition home or self-care (01) ==
LOC: ANHED 14:56 → ANHIMU 18:27
PROVIDERS: Admitting Provider Family Medicine; Emergency Provider Emergency Medicine; Visit Provider Nurse Practitioner Family
DX: I16.1 Hypertensive emergency (principal); I11.0 Hypertensive heart disease with heart failure; I50.9 Heart failure, unspecified; N17.9 Acute kidney failure, unspecified; Z72.0 Tobacco use; R77.8 Other specified abnormalities of plasma proteins; Z79.899 Other long term (current) drug therapy
CPT/HCPCS: 36415; 71045; 74177; 80048; 80053; 80307; 81001; 83690; 83735; 83880; 84484; 85025; 93005; 96374; 96375; 96376; 99285; A9270; C8929; G0378; G0379; J1940; Q9957; Q9967

== ENCOUNTER 2021-09-20 09:33 | Inpatient (IN) | payer MEDICAID, SELFPAY ==
[2021-09-20] VITALS (28 sets, daily range): BP systolic 162–207; BP diastolic 82–171; PULSE 77–106; RESP 13–36; TEMP 36.4; O2SAT 96–100; BMI 27.8
--- NOTE | ~2021-09-20 | XR_ITS ---
EXAMINATION: XR chest 2V DATE: 09/20/2021 10:41 INDICATION: Shortness of breath. TECHNIQUE: Frontal and lateral views of the chest were obtained. COMPARISON: Chest single view 08/09/2021, CT abdomen and pelvis 08/09/2021 FINDINGS: Victor Manuel B lines are noted, consistent mild pulmonary edema. No pleural effusion or pneumotho rax. Cardiomegaly is noted. IMPRESSION: 1. Mild pulmonary edema. 2. Cardiomegaly. 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
--- NOTE | 2021-09-20 09:40 | ECG_ITS ---
Measurements Intervals Mico Rate: 96 P: 27 [place]: 148 QRS: -66 QRSD: 112 T: 95 QT: 376 QTc: 476 Interpretive Statements SINUS RHYTHM LEFT ATRIAL ENLARGEMENT [-0.15mV P WAVE IN V1/V2] MARKED LEFT AXIS DEVIATION [QRS AXIS < -30] MODERATE INTRAVENTRICULAR CONDUCTION DELAY [105+ ms QRS DURATION, 80+ ms Q/S IN V1/V2, NO Q AND 60+ ms R IN I/aVL/V5/V6] LEFT VENTRICULAR HYPERTROPHY WITH REPOLARIZATION CHANGES COMPARED TO ECG 08/10/2021 09:18:41 THE LATERAL T-WAVE CHANGES ARE IMPROVED Electronically Signed On 09-20-2021 20:51:41 CDT by Tami Donohue M.D.
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
--- NOTE | 2021-09-20 10:13 | PC.NURSE ---
[employer], Vascular security messenger, notified of need for IV access.
[2021-09-20] MEDS: FUROSEMIDE INJ 40 MG/4 ML VIAL IV PUSH (10:34)
[2021-09-20 10:38] LABS: Basophils Percent Auto 0.3 % (0.2-1.2); Eosinophils Absolute Auto 0.1 K/mm3 (0-0.3); Eosinophils Percent Auto 1.4 % (0-4.4); Hematocrit 32.3 % (42.0-52.0); Hemoglobin 10.1 g/dL (14.0-18.0); Immature Granulocyte Absolute 0.01 K/mm3 (0.00-0.031); Immature Granulocyte Percent A 0.1 % (0-0.5); Lymphocytes Absolute Auto 1.13 K/mm3 (0.9-3.2); Lymphocytes Percent Auto 15.5 % (18.3-44.2); Mean Corpuscular HGB Conc 31.3 g/dl (32-36); Mean Corpuscular Hemoglobin 25.8 pg (26-34); Mean Corpuscular Volume 82.4 fl (80-100); Mean Platelet Volume 9.6 fl (7.4-10.4); Monocytes Absolute Auto 0.5 K/mm3 (0.1-0.6); Monocytes Percent Auto 7.4 % (2.6-8.5); Neutrophils Absolute Auto 5.5 K/mm3 (1.3-6.7); Neutrophils Percent Auto 75.3 % (45.5-73.1); Platelet Count Result 306 k/mm3 (150-375); Red Blood Count 3.92 M/mm3 (4.6-6.20); Red Cell Distribution Width 16.3 % (11.5-14.5); White Blood Count 7.3 K/mm3 (4.5-10.0)
--- NOTE | 2021-09-20 10:39 | PC.NURSE ---
Patient off unit to Radiology.
[2021-09-20 10:51] LABS: INR 1.4; Prothrombin Time 16.8 Seconds (11.1-14.7)
[2021-09-20 10:53] LABS: Alanine Aminotransferase 83 U/L (4-50); Albumin Level 3.6 g/dL (3.5-5.1); Alkaline Phosphatase 113 U/L (38-126); Anion Gap 6 mmol/L (8-16); Aspartate Amino Transferase 67 U/L (17-59); Bilirubin,Total 1.7 mg/dL (0.2-1.3); Blood Urea Nitrogen 23 mg/dL (9-20); Calcium 8.3 mg/dL (8.4-10.2); Carbon Dioxide 22 mmol/L (22-30); Chloride 103 mmol/L (98-107); Estimated CRCL calculation 53 ml/min; Estimated Glomerular Filt Rate 49; Glucose 112 mg/dL (65-110); Partial Thromboplastin Time 28.2 SECONDS (22.3-36.8); Potassium 4.6 mmol/L (3.4-5.0); Sodium 131 mmol/L (137-145)
--- NOTE | 2021-09-20 10:59 | PC.NURSE ---
Patient report given to CURLY Orozco. All questions answered and care of patient transferred.
[2021-09-20 11:04] LABS: NT Pro B Type Natriuretic Pept 7160 pg/mL (5-100); Troponin I 0.575 ng/mL (0.000-0.034)
[2021-09-20] MEDS: ASPIRIN 81 MG CHEWABLE TABLET 324 MG PO (12:05)
[2021-09-20] MEDS: LABETALOL HCL INJ 100 MG/20 ML VIAL 20 MG IV PUSH ×2 (12:10→13:10)
--- NOTE | 2021-09-20 14:02 | PC.NURSE ---
Food and nutrition called for tray.
--- NOTE | 2021-09-20 16:45 | PM.IMHP ---
H&P: HPI History of Present Illness Date/Time: 09/20/21 16:45 Chief Complaint: Shortness of breath and leg swelling. Narrative: This unfortunate 36-year-old male with severe hypertension and systolic congestive heart failure who presented to the emergency department for evaluation of shortness of breath and leg swelling. He is known to the hospitalist service from an admission in July 2021 at which time he was admitted for acute kidney injury, CHF exacerbation, and hypertensive emergency after presenting with shortness of breath. Echocardiogram at that time showed a mildly enlarged LV chamber with moderately reduced LV systolic function with an estimated EF of 30 to 35% and severely enlarged left atrial chamber. He did well with diuresis and blood pressures were looking better with a combination of amlodipine, lisinopril, carvedilol, and furosemide. During that stay he was seen by the cardiology group affiliated with [facility] and he has an upcoming appointment with Ronda Linares NP on 09/28/2021. Unfortunately he does not have a primary care provider and he was apparently not able to get his prescriptions refilled and thus he has missed some of his medications though he cannot recall which ones he has missed and how many doses he has missed. He has been mindful of his sodium intake but admits that it is difficult. In any event, over the past 3 days or so he has had progressive lower extremity edema and orthopnea and today his blood pressure was up into the 180s/120s and he decided to come in for evaluation. Blood pressure in the ER was as high as 207/171 though that has improved since receiving furosemide 40 mg and labetalol 20 mg IV push. Chest x-ray showed mild pulmonary edema and cardiomegaly. Troponin and BNP were also elevated at 0.575 and 7160 respectively and he is being admitted in this setting for further treatment and evaluation. He currently has no specific complaints and is resting comfortably. He denies syncope, near syncope, chest pain, pleuritic pain, palpitation, vomiting, and diaphoresis. Review of Systems Review of Systems: Twelve systems were reviewed. No fever, chills, or sweats. No recent cold or flu symptoms. No dysuria. Except as documented, all other systems were reviewed and are negative. [facility] Past Medical History Medical History Chronic renal failure Heart failure with reduced ejection fraction EF of 30 to 35% on echocardiogram in July 2021. Hypertension Tobacco use Surgical History Surgical History (Updated 09/20/21 @ 21:42 by Mandie Flynn PA-C) No history of previous surgery Family History Family History (Updated 09/20/21 @ 21:42 by Mandie Flynn PA-C) Father , at age 53. Hypertension Congestive heart failure Social History Social History (Updated 09/20/21 @ 21:44 by Mandie Flynn PA-C) Social History: The patient is currently staying in [place] with his girlfriend. Currently working at a [employer] in [place]. He has smoked for several years but has cut down to maybe 2 to 3 cigarettes every few days and he intends on quitting soon. He drinks alcohol socially and in moderation. Occasional marijuana use. He designates his mother, Juanita Headley, as his surrogate decision maker and he wishes to be a full code. Spiritual care concerns: No Meds Home Medications and Allergies Home Medications Medication Instructions Recorded Confirmed Type lisinopril 20 mg PO DAILY 07/05/19 09/20/21 History carvedilol [Coreg] 12.5 mg PO Q12HR 30 Days #60 tablet 08/11/21 09/20/21 Rx Allergies Allergy/AdvReac Type Severity Reaction Status Date / Time No Known Allergies Allergy Unverified 09/12/18 18:22 Vital Signs Vital Signs - 24 hr 09/20/21 09:40 09/20/21 09:42 09/20/21 09:43 Temperature Pulse Rate 105 H 106 H 103 H Respiratory Rate 34 H 36 H 30 H Blood Pressure 201/160 H 207/171 H Pulse Oximetry 100 100 100 09/20/21 09:44 09/20/21 09:45 09/20/21 0
--- NOTE | 2021-09-20 17:23 | ADMGEN ---
This patient, Manuel Headley, was admitted to IMU Room 210-01. Patient/family oriented to hospital policies and general routines including ID bracelet, bed and alarms, visiting hours, pain management, procedures, bathroom and other care routines, personal items, smoking policy, room service/diet, and visiting hours. Information on how to activate the Rapid Response Team has been discussed. Patient/Family are encouraged to report perceived risks to care and to ask questions if they do not understand what they are told or what they should do.
[2021-09-20] MEDS: carvediloL 12.5 MG TABLET PO (20:50)
[2021-09-20] MEDS: lisinopriL 10 MG TABLET PO (20:50)
[2021-09-20] MEDS: amLODIPine BESYLATE 5 MG TABLET PO (22:50)
[2021-09-21] VITALS (17 sets, daily range): BP systolic 131–167; BP diastolic 94–121; PULSE 69–93; RESP 16–20; TEMP 36.1–37; O2SAT 82–100
[2021-09-21 05:25] LABS: Alanine Aminotransferase 68 U/L (4-50); Alkaline Phosphatase 105 U/L (38-126); Anion Gap 5 mmol/L (8-16); Aspartate Amino Transferase 45 U/L (17-59); Bilirubin,Total 1.4 mg/dL (0.2-1.3); Blood Urea Nitrogen 23 mg/dL (9-20); Calcium 7.9 mg/dL (8.4-10.2); Carbon Dioxide 24 mmol/L (22-30); Chloride 102 mmol/L (98-107); Estimated CRCL calculation 46 ml/min; Estimated Glomerular Filt Rate 41; Glucose 116 mg/dL (65-110); Magnesium 1.8 mg/dL (1.6-2.3); Potassium 4.2 mmol/L (3.4-5.0); Sodium 131 mmol/L (137-145)
--- NOTE | 2021-09-21 08:19 | PM.IMPN ---
Progress Note: A&P Additional Plan (1) Acute exacerbation of congestive heart failure: Code(s): I50.9 - Heart failure, unspecified Status: Acute Assessment and Plan: Secondary to missed medications (patient does not have a PCP and could not get his prescriptions refilled) and uncontrolled hypertension. He will be diuresed with IV furosemide 40 mg b.i.d. with close monitoring of volume status and renal function. Resume lisinopril and carvedilol. Dietitian consulted as the patient seems to need guidance regarding an appropriate, lower-sodium diet and heart healthy diet. (2) Elevated troponin: Code(s): R77.8 - Other specified abnormalities of plasma proteins Status: Acute Assessment and Plan: Presumably secondary to uncontrolled hypertension and congestive heart failure. He is not having any chest pain whatsoever and his EKG is comparable to prior tracings. Per injector assembler there is no evidence of acute coronary syndrome and he does not recommend pursuing ischemic work up at this time. (3) Hypertensive urgency: Code(s): I16.0 - Hypertensive urgency Status: Acute Assessment and Plan: -BP is improved this morning. -continue amlodipine, lisinopril, and carvedilol. Continue IV diuresis with furosemide. -carvedilol increased to 25mg BID per injector assembler recommendations. (4) MIHAI on Chronic renal failure stage 3: Code(s): N18.9 - Chronic kidney disease, unspecified Status: Acute Assessment and Plan: Creatinine is a bit improved when compared to labs done last month. MIHAI component could be cardiorenal. Monitor with daily BMP. (5) Tobacco use: Code(s): Z72.0 - Tobacco use Status: Acute Assessment and Plan: Patient reports smoking perhaps to cigarettes every few days. It is imperative that he stop smoking and this was discussed. He does intend on quitting smoking and declines the need for nicotine patch. Subjective Date/time seen: 09/21/21 08:19 Patient seen lying comfortably in bed. He denied having any complains. Only asked for his breakfast. Exam Const: General: cooperative, comfortable and no acute distress Resp: Effort & Inspection: normal respiratory effort and able to speak in complete sentences Auscultation: crackles Cardio: Rate: regular rate Rhythm: regular rhythm Heart sounds: S1 normal heart sound present and S2 normal heart sound present GI: Inspection: normal to inspection GI Palp: No abdominal tenderness Auscultation: normal bowel sounds Extrem: Right lower extremity: normal to inspection and edema Left lower extremity: normal to inspection and edema Objective Data Vital Signs Vital Signs: Vital Signs - 24 hr 09/20/21 09:40 09/20/21 09:42 09/20/21 09:43 Temperature Pulse Rate 105 H 106 H 103 H Respiratory Rate 34 H 36 H 30 H Blood Pressure 201/160 H 207/171 H Pulse Oximetry 100 100 100 09/20/21 09:44 09/20/21 09:45 09/20/21 09:46 Temperature Pulse Rate 102 H 101 H 102 H Respiratory Rate 34 H 35 H 30 H Blood Pressure 201/160 H 195/161 H Pulse Oximetry 100 100 100 09/20/21 10:00 09/20/21 10:01 09/20/21 10:15 Temperature Pulse Rate 91 87 92 Respiratory Rate 22 H 25 H 29 H Blood Pressure 204/153 H Pulse Oximetry 99 98 100 09/20/21 10:16 09/20/21 10:30 09/20/21 10:31 Temperature Pulse Rate 94 87 93 Respiratory Rate 21 H 13 15 Blood Pressure 204/163 H 199/166 H Pulse Oximetry 100 100 100 09/20/21 10:41 09/20/21 11:32 09/20/21 12:06 Temperature Pulse Rate 83 94 Respiratory Rate 18 18 Blood Pressure 205/169 H 195/151 H Pulse Oximetry 98 98 97 09/20/21 12:30 09/20/21 13:18 09/20/21 14:15 Temperature Pulse Rate 86 78 81 Respiratory Rate 18 18 18 Blood Pressure 162/110 H 174/104 H 163/82 H Pulse Oximetry 100 98 100 09/20/21 15:16 09/20/21 16:41 09/20/21 17:15 Temperature 97.5 F L Pulse Rate 78 77 85 Respiratory Rate 18 18 18 Blood Pressure 16
[2021-09-21] MEDS: FUROSEMIDE INJ 40 MG/4 ML VIAL IV PUSH ×2 (09:04→17:35)
--- NOTE | 2021-09-21 09:11 | PM.CNCAR ---
Assessment and Plan Additional Plan 36-year-old man with advanced hypertension as described above. He presents to the hospital with some lower extremity edema which of course is not surprising given his severe hypertension, LV systolic dysfunction, renal insufficiency. His blood pressure is significantly improved from the last hospitalization and for reasons described above he is not taking his calcium channel [place]. I will recommend advancing his carvedilol dosage to 25 mg q.12 hours, continuing the lisinopril and I will try starting long-acting nifedipine in place of the amlodipine. He is receiving IV furosemide for his lower extremity edema. He may or may not need to be discharged on some furosemide as well. For some reason troponin levels were sampled on admission and they are mild to moderately elevated and coming down. I do not see any evidence of an acute coronary syndrome at this time and I do not recommend pursuing an ischemia workup for that reason. Amauri Lees MD [facility] History of Present Illness History of Present Illness Consult date/time: 09/21/21 09:11 Consult reason: hypertension Reason For Visit: Hypertensive emergency, acute CHF, elevated tropon Narrative: This is a 36-year-old man that I saw last month when he was in the hospital here with severe hypertension. I am asked to see him again at the request of the hospitalist for assistance with treating his hypertension yet again. The patient when he came in last month was found to be severely hypertensive in the emergency room and was having some shortness of breath. He had exceedingly high blood pressure and was not taking any medication for it even though he knew he had a history of hypertension. His evaluation also unfortunately demonstrated that he had developed hypertensive heart disease with moderate left ventricular systolic dysfunction and also chronic kidney disease as well. He was discharged in improved condition on a combination of carvedilol lisinopril and amlodipine and follow-up was scheduled in the office which still has not yet occurred. I did recommend that he follow-up with a [facility] because of this advanced history of complex hypertension he states that did not occur because he could not afford it. He comes back to the hospital yesterday because he was noticing the onset of some lower extremity edema which was concerning to him. He denies any other symptomatology. He was seen in the emergency room and admitted back to the hospital. His blood pressure is still rather high. He has been taking the Coreg and the lisinopril he states he has not been taking the amlodipine because he did not notice it was benefitting his blood pressure at all. Apparently took his blood pressure and when he did not see a response after the medication he considered the medication ineffective and stopped taking it. He denies any symptoms of chest pain pressure or heaviness he is not having any orthopnea or PND. His chest x-ray demonstrates cardiomegaly with clear looking lung watters. Review of Systems Constitutional: Constitutional: Reports no additional constitutional complaints Eyes: Eyes: Reports no additional eye complaints ENT: Reports system reviewed and no additional complaints, except as documented Cardiovascular: Cardiovascular: Reports as per HPI Respiratory: Respiratory: Reports no additional respiratory complaints Gastrointestinal: Gastrointestinal: Reports no additional gastrointestinal complaints Musculoskeletal: Musculoskeletal: Reports as per HPI Integumentary/Breasts: Skin/Breast: Reports system reviewed and no additional complaints, except as docu Neurologic: Reports system reviewed and no additional complaints, except as documented Endocrine: Endocrine: Reports no additional endocrine complaints Hematologic/Lymphatic: Hematologic/Lymphatic: Reports no additional hematologic/lymphatic complaints Allergic/Immunologic: Allergi
[2021-09-21] MEDS: lisinopriL 20 MG TABLET PO (11:31)
[2021-09-21] MEDS: NIFEdipine 30 MG TAB.ER.24 60 MG PO (11:31)
[2021-09-21] MEDS: carvediloL 25 MG TABLET PO (19:58)
[2021-09-22] VITALS (17 sets, daily range): BP systolic 115–137; BP diastolic 54–101; PULSE 61–78; RESP 16–20; TEMP 36–36.5; O2SAT 95–100
[2021-09-22 05:12] LABS: Anion Gap 6 mmol/L (8-16); Blood Urea Nitrogen 27 mg/dL (9-20); Calcium 7.8 mg/dL (8.4-10.2); Carbon Dioxide 27 mmol/L (22-30); Chloride 99 mmol/L (98-107); Estimated CRCL calculation 51 ml/min; Estimated Glomerular Filt Rate 46; Glucose 117 mg/dL (65-110); Magnesium 1.8 mg/dL (1.6-2.3); Potassium 3.6 mmol/L (3.4-5.0); Sodium 132 mmol/L (137-145)
--- NOTE | 2021-09-22 07:38 | PM.IMPN ---
Progress Note: A&P Additional Plan #Acute on Chronic exacerbation of systolic congestive heart failure: -secondary to missed medications (patient does not have a PCP and could not get his prescriptions refilled) and uncontrolled hypertension. -continue diuresis with IV furosemide 40 mg b.i.d. with close monitoring of volume status and renal function. -continue PO lisinopril and carvedilol. -PO KCl 20meq daily. -dietitian consulted for guidance regarding appropriate, low sodium and heart healthy diet. -incoming hospitalist is to follow up BMP results tomorrow. #Elevated troponin present on admission: -presumed to be secondary to uncontrolled hypertension and congestive heart failure. -patient denies having any chest pain whatsoever and his EKG is comparable to prior tracings. -troponin levels peaked at 2.06 and downtrended to 1.46 -per turfgrass technician after he evaluated the patient, there is no evidence of acute coronary syndrome and he does not recommend pursuing ischemic work up at this time. #Hypertensive urgency on admission: -BP is improved this morning to 124/51 mmhg. -continue nifedipine 60mg XL daily, lisinopril 20 mg daily, and carvedilol 25mg BID. Continue IV diuresis with furosemide per turfgrass technician recommendations. #MIHAI on Chronic renal failure stage 3: improving -elevated creatinine of 1.9 on admission, --> then 2.2--> most recently it is 2.0 -MIHAI component could be cardiorenal hence should continue to improve with diuresis. -monitor with daily BMP. #Tobacco use: -he smokes perhaps 2 cigarettes every few days. It is imperative that he stop smoking and this was discussed on admission. He does intend on quitting smoking and declined the need for nicotine patch. Time Spent With Patient Time with patient: 15 - 25 minutes Subjective Date/time seen: 09/22/21 07:38 Patient seen sitting up in bedside chair watching videos, he endorsed feeling well and has no new complains. Exam Const: General: comfortable and no acute distress Resp: Effort & Inspection: normal respiratory effort and able to speak in complete sentences Auscultation: crackles Cardio: Rate: regular rate Rhythm: regular rhythm Heart sounds: S1 normal heart sound present and S2 normal heart sound present GI: Inspection: normal to inspection GI Palp: Yes Soft to palpation Auscultation: normal bowel sounds Extrem: General: normal to inspection and edema Objective Data Vital Signs Vital Signs: Vital Signs - 24 hr 09/21/21 08:00 09/21/21 08:27 09/21/21 10:00 Temperature 98 F Pulse Rate 82 75 Respiratory Rate 16 Blood Pressure 167/117 H Pulse Oximetry 82 L 97 09/21/21 11:55 09/21/21 12:00 09/21/21 14:00 Temperature 97.9 F Pulse Rate 72 69 76 Respiratory Rate 20 Blood Pressure 162/116 H Pulse Oximetry 100 99 09/21/21 16:00 09/21/21 18:00 09/21/21 19:58 Temperature 98.3 F Pulse Rate 81 93 81 Respiratory Rate 16 Blood Pressure 156/111 H Pulse Oximetry 98 09/21/21 20:00 09/21/21 20:53 09/21/21 22:00 Temperature 96.9 F L Pulse Rate 81 74 Respiratory Rate 18 Blood Pressure 131/94 H Pulse Oximetry 99 98 09/22/21 00:00 09/22/21 02:00 09/22/21 04:00 Temperature 97 F L 97.7 F Pulse Rate 73 71 71 Respiratory Rate 18 18 Blood Pressure 115/71 124/54 L Pulse Oximetry 98 95 09/22/21 06:00 Temperature Pulse Rate 64 Respiratory Rate Blood Pressure Pulse Oximetry Intake/Output Intake/Output: Intake & Output 09/19/21 09/20/21 09/21/21 09/22/21 23:59 23:59 23:59 23:59 Intake Total 480 2760 800 Output Total 1550 100 Balance -1070 2660 800 Meds/Results Medications: Active Medications Generic Name Dose Route Start Last Admin Trade Name Pramodq PRN Reason Stop Dose Admin Carvedilol 25 mg 09/21/21 21:00 09/21/21 19:58 Carvedilol 25 Mg Tablet PO 25 mg Q12HR MEENA Administration Furosemide 40 mg 09/21/21 09:00 09/21/21 17:35 Furosemide Inj 40 Mg/4 Ml Vial IV
[2021-09-22] MEDS: POTASSIUM CHLORIDE 20 MEQ TABLET.ER PO (09:22)
[2021-09-22] MEDS: carvediloL 25 MG TABLET PO ×2 (09:22→20:44)
[2021-09-22] MEDS: lisinopriL 20 MG TABLET PO (09:23)
[2021-09-22] MEDS: FUROSEMIDE INJ 40 MG/4 ML VIAL IV PUSH ×2 (09:23→16:40)
[2021-09-22] MEDS: NIFEdipine 30 MG TAB.ER.24 60 MG PO (09:23)
--- NOTE | 2021-09-22 09:50 | PM.PNCARD ---
Progress Note: A&P Assessment and Plan (1) Hypertensive urgency: Code(s): I16.0 - Hypertensive urgency Status: Acute Assessment and Plan: Amlodipine changed to nifedipine, carvedilol dose increased. Blood pressure improving (2) Acute on chronic combined systolic and diastolic CHF (congestive heart failure): Code(s): I50.43 - Acute on chronic combined systolic (congestive) and diastolic (congestive) heart failure Status: Acute Assessment and Plan: Admitted with edema and CHF. Improving with furosemide 40 mg IV push b.i.d.. Continue daily BMP (3) Hypertensive kidney disease with CKD stage III: Code(s): I12.9 - Hypertensive chronic kidney disease with stage 1 through stage 4 chronic kidney disease, or unspecified chronic kidney disease; N18.30 - Chronic kidney disease, stage 3 unspecified Status: Acute Assessment and Plan: CKD stable with diuresis (4) Hypertensive cardiomyopathy: Code(s): I11.9 - Hypertensive heart disease without heart failure; I43 - Cardiomyopathy in diseases classified elsewhere Status: Acute Assessment and Plan: EF 30-35%, hypertensive cardiomyopathy Continue carvedilol, lisinopril Subjective Date/time seen: 09/22/21 09:50 Interval history: Follow-up for hypertension and cardiomyopathy. Echo EF 30-35% with moderate LVH and diastolic dysfunction in July 2021. 09/21/2021: Pt presents to the hospital with some lower extremity edema which of course is not surprising given his severe hypertension, LV systolic dysfunction, renal insufficiency. His blood pressure is significantly improved from the last hospitalization and for reasons described above he is not taking his calcium channel [place]. I will recommend advancing his carvedilol dosage to 25 mg q.12 hours, continuing the lisinopril and I will try starting long-acting nifedipine in place of the amlodipine. He is receiving IV furosemide for his lower extremity edema. He may or may not need to be discharged on some furosemide as well. For some reason troponin levels were sampled on admission and they are mild to moderately elevated and coming down. I do not see any evidence of an acute coronary syndrome at this time and I do not recommend pursuing an ischemia workup for that reason. Date of service 09/22/2021: Urinating a lot, less edema, feeling better, no shortness of breaths. Blood pressure is much better this morning. Review of Systems Constitutional: Constitutional: Reports fatigue Eyes: Eyes: Reports no additional eye complaints ENT: Denies epistaxis Cardiovascular: Cardiovascular: Denies chest pain, Reports pedal edema, Reports leg edema and Denies lightheadedness Respiratory: Respiratory: Denies dyspnea and Denies dyspnea on exertion Comments: Up and about in room with no shortness of breath Gastrointestinal: Gastrointestinal: Denies abdominal pain Genitourinary: Genitourinary: Denies dysuria Musculoskeletal: Musculoskeletal: Reports no additional musculoskeletal complaints Integumentary/Breasts: Skin/Breast: Denies rash Neurologic: Reports system reviewed and no additional complaints, except as documented Psychiatric: Psychiatric: Reports no additional psychiatric complaints Exam Const: General: comfortable and no acute distress HENMT: General nose exam: no epistaxis Eyes: EOM: EOMs intact bilaterally Neck: Neck: supple Resp: Effort & Inspection: normal respiratory effort Auscultation: clear to auscultation bilaterally Cardio: Rate: regular rate Rhythm: regular rhythm GI: GI Palp: Yes Soft to palpation and No Tenderness to palpation present (GI) Skin: General skin exam: no rashes or lesions noted Neuro: Cognition (Neuro): normal cognition Speech: normal speech Extrem: General: edema and pedal edema Other: Moderate lower extremity edema bilaterally Psych: Mental Status: mental status grossly normal Affect: normal affect
[2021-09-22 22:12] LABS: Anion Gap 6 mmol/L (8-16); Blood Urea Nitrogen 25 mg/dL (9-20); Carbon Dioxide 28 mmol/L (22-30); Chloride 99 mmol/L (98-107); Estimated CRCL calculation 53 ml/min; Estimated Glomerular Filt Rate 49; Glucose 144 mg/dL (65-110); Magnesium 1.9 mg/dL (1.6-2.3); Potassium 4.1 mmol/L (3.4-5.0); Sodium 133 mmol/L (137-145)
[2021-09-23] VITALS (21 sets, daily range): BP systolic 119–142; BP diastolic 84–99; PULSE 61–111; RESP 16–20; TEMP 36.2–36.6; O2SAT 96–100
[2021-09-23 05:14] LABS: Anion Gap 6 mmol/L (8-16); Blood Urea Nitrogen 21 mg/dL (9-20); Calcium 8.4 mg/dL (8.4-10.2); Carbon Dioxide 28 mmol/L (22-30); Chloride 101 mmol/L (98-107); Estimated CRCL calculation 53 ml/min; Estimated Glomerular Filt Rate 49; Glucose 94 mg/dL (65-110); Magnesium 1.9 mg/dL (1.6-2.3); Potassium 3.8 mmol/L (3.4-5.0); Sodium 135 mmol/L (137-145)
[2021-09-23] MEDS: NIFEdipine 30 MG TAB.ER.24 60 MG PO (09:36)
[2021-09-23] MEDS: carvediloL 25 MG TABLET PO ×2 (09:36→20:48)
[2021-09-23] MEDS: POTASSIUM CHLORIDE 20 MEQ TABLET.ER PO (09:36)
[2021-09-23] MEDS: FUROSEMIDE INJ 40 MG/4 ML VIAL IV PUSH ×2 (09:37→16:28)
[2021-09-23] MEDS: lisinopriL 20 MG TABLET PO (09:37)
--- NOTE | 2021-09-23 09:54 | PM.IMPN ---
Progress Note: A&P Assessment and Plan (1) Acute exacerbation of congestive heart failure: Qualifiers: Heart failure type: unspecified Qualified Code(s): I50.9 - Heart failure, unspecified Code(s): I50.9 - Heart failure, unspecified Status: Acute Assessment and Plan: -cardiology following and managing. -today carvedilol was increased to 25 mg p.o. b.i.d. and nifedipine was increased to extended release 60 mg daily. -patient having good diuresis with Lasix 40 IV b.i.d.. -still remains edematous has evidence of fluid overload. -ejection fraction 30-35% with cardiomyopathy -continue fluid restriction (2) Elevated troponin: Code(s): R77.8 - Other specified abnormalities of plasma proteins Status: Acute Assessment and Plan: -secondary to cardiac strain from heart failure. -continue telemetry -cardiology following and managing -no ACS (3) Hypertensive urgency: Code(s): I16.0 - Hypertensive urgency Status: Acute Assessment and Plan: -improving. -medications adjusted today by Cardiology. -continue to monitor vital signs -cardiac diet -suggest nicotine use cessation (4) Chronic renal failure: Qualifiers: Chronic kidney disease stage: unspecified stage Qualified Code(s): N18.9 - Chronic kidney disease, unspecified Code(s): N18.9 - Chronic kidney disease, unspecified Status: Acute Assessment and Plan: -monitor. -creatinine today is 1.9 with BUN 21 which is marginally improved over yesterday's (5) Tobacco use: Code(s): Z72.0 - Tobacco use Status: Acute Assessment and Plan: -encourage cessation. -declines the need for nicotine patch. Time Spent With Patient Time with patient: 15 - 25 minutes Subjective Date/time seen: 09/23/21 09:54 This pt. was examined at the bedside in interval assessment this morning with review of his CHF Exacerbation. He denies any CP, Dyspnea, N/V/D, urological concerns. He states his edema is improving. He also tells this provider that he did not miss any doses of his BP medications prior to coming to the hospital. He endorses that he does not have a PCP currently and that he usually just goes to [facility]. They have reportedly been filling his medications. Pt. wants to go home, he does still appear to have some fluid overload, however. As he has a history of not being compliant with medication treatment, I am hesitant to discharge him as he still seems to require more diuresis. I explained to him that it would be the decision of Cardiology whether or not he is discharged. Review of Systems Review of Systems: ROS is otherwise negative with exception of what is noted in HPI. All systems reviewed & are unremarkable except as noted in HPI and below Exam Narrative: I am told by the RN that the pt. is diuresing well. BP is still running on the higher side at times. Const: General: comfortable and no acute distress HENMT: Mouth: Yes moist mucous membranes Eyes: Sclera: sclerae normal Neck: Neck: supple and no JVD Resp: Effort & Inspection: normal respiratory effort Auscultation: clear to auscultation bilaterally and crackles (Very fine in bilateral bases.) bilateral Cardio: Rate: regular rate Rhythm: regular rhythm GI: GI Palp: Yes Soft to palpation and No Tenderness to palpation present (GI) Auscultation: normal bowel sounds Skin: General skin exam: normal color and no rashes or lesions noted Extrem: Right lower extremity: edema (Mid-calf to foot ) Details: pitting and 1+ Left lower extremity: edema (Mid-calf to foot) Details: pitting and 1+ Psych: Mental Status: mental status grossly normal Affect: No normal affect (Poor decision making skills ) Thought content: Yes Normal thought content present Objective Data Vital Signs Vital Signs: Vital Signs - 24 hr 09/22/21 10:00 09/22/21 12:00 09/22/21 14:00 Temperature 96.8 F L Pulse Rate 72 64 69 Res
--- NOTE | 2021-09-23 12:25 | PM.PNCARD ---
Progress Note: A&P Assessment and Plan (1) Hypertensive urgency: Code(s): I16.0 - Hypertensive urgency Status: Acute Assessment and Plan: Amlodipine changed to nifedipine, carvedilol dose increased. Blood pressure improving (2) Acute on chronic combined systolic and diastolic CHF (congestive heart failure): Code(s): I50.43 - Acute on chronic combined systolic (congestive) and diastolic (congestive) heart failure Status: Acute Assessment and Plan: Admitted with edema and CHF. Improving with furosemide 40 mg IV push b.i.d.. Continue daily BMP I think patient would benefit from another day of IV diuretics and have recommended that he stay until Friday, but if he chooses to leave that is not unreasonable. Discussed the seriousness of his hypertension issues and cardiomyopathy, poor life expectancy without effective treatment, the need for long-term consistent care. Encouraged the patient to follow with us and also find a primary care physician. (3) Hypertensive kidney disease with CKD stage III: Code(s): I12.9 - Hypertensive chronic kidney disease with stage 1 through stage 4 chronic kidney disease, or unspecified chronic kidney disease; N18.30 - Chronic kidney disease, stage 3 unspecified Status: Acute Assessment and Plan: CKD stable with diuresis (4) Hypertensive cardiomyopathy: Code(s): I11.9 - Hypertensive heart disease without heart failure; I43 - Cardiomyopathy in diseases classified elsewhere Status: Acute Assessment and Plan: EF 30-35%, hypertensive cardiomyopathy Continue carvedilol, lisinopril Subjective Date/time seen: 09/23/21 12:25 Interval history: Follow-up for hypertension and cardiomyopathy. Echo EF 30-35% with moderate LVH and diastolic dysfunction in July 2021. 09/21/2021: Pt presents to the hospital with some lower extremity edema which of course is not surprising given his severe hypertension, LV systolic dysfunction, renal insufficiency. His blood pressure is significantly improved from the last hospitalization and for reasons described above he is not taking his calcium channel [place]. I will recommend advancing his carvedilol dosage to 25 mg q.12 hours, continuing the lisinopril and I will try starting long-acting nifedipine in place of the amlodipine. He is receiving IV furosemide for his lower extremity edema. He may or may not need to be discharged on some furosemide as well. For some reason troponin levels were sampled on admission and they are mild to moderately elevated and coming down. I do not see any evidence of an acute coronary syndrome at this time and I do not recommend pursuing an ischemia workup for that reason. Date of service 09/22/2021: Urinating a lot, less edema, feeling better, no shortness of breaths. Blood pressure is much better this morning. Date of service 09/23/2021: Feels good, wants to go home today, no dizziness or shortness of breath. Very good diuresis yesterday, blood pressure doing better. RN educating patient about heart healthy, low-salt diet; patient needs some direction on this. Review of Systems Constitutional: Constitutional: Reports no additional constitutional complaints Eyes: Eyes: Reports no additional eye complaints ENT: Denies epistaxis Cardiovascular: Cardiovascular: Denies chest pain, Reports pedal edema, Reports leg edema, Denies lightheadedness, Denies dyspnea and Denies dyspnea on exertion Respiratory: Respiratory: Denies dyspnea and Denies dyspnea on exertion Gastrointestinal: Gastrointestinal: Denies abdominal pain Genitourinary: Genitourinary: Denies dysuria Musculoskeletal: Musculoskeletal: Reports no additional musculoskeletal complaints Integumentary/Breasts: Skin/Breast: Denies rash Neurologic: Reports system reviewed and no additional complaints, except as documented Psychiatric: Psychiatric: Reports no additional psychiatric complaints Endocrin
[2021-09-24] VITALS (7 sets, daily range): BP systolic 134; BP diastolic 89–95; PULSE 65–74; RESP 20–22; TEMP 36.6–36.8; O2SAT 97–100
[2021-09-24 04:49] LABS: Basophils Percent Auto 0.6 % (0.2-1.2); Eosinophils Absolute Auto 0.2 K/mm3 (0-0.3); Eosinophils Percent Auto 2.1 % (0-4.4); Hematocrit 37.4 % (42.0-52.0); Hemoglobin 11.5 g/dL (14.0-18.0); Immature Granulocyte Absolute 0.02 K/mm3 (0.00-0.031); Immature Granulocyte Percent A 0.3 % (0-0.5); Lymphocytes Absolute Auto 1.79 K/mm3 (0.9-3.2); Lymphocytes Percent Auto 25.5 % (18.3-44.2); Mean Corpuscular HGB Conc 30.7 g/dl (32-36); Mean Corpuscular Hemoglobin 25.3 pg (26-34); Mean Corpuscular Volume 82.2 fl (80-100); Mean Platelet Volume 8.8 fl (7.4-10.4); Monocytes Absolute Auto 0.9 K/mm3 (0.1-0.6); Monocytes Percent Auto 12.1 % (2.6-8.5); Neutrophils Absolute Auto 4.2 K/mm3 (1.3-6.7); Neutrophils Percent Auto 59.4 % (45.5-73.1); Platelet Count Result 358 k/mm3 (150-375); Red Blood Count 4.55 M/mm3 (4.6-6.20); Red Cell Distribution Width 15.9 % (11.5-14.5)
[2021-09-24 05:02] LABS: Alanine Aminotransferase 42 U/L (4-50); Albumin Level 3.5 g/dL (3.5-5.1); Alkaline Phosphatase 111 U/L (38-126); Anion Gap 4 mmol/L (8-16); Aspartate Amino Transferase 36 U/L (17-59); Bilirubin,Total 0.5 mg/dL (0.2-1.3); Blood Urea Nitrogen 22 mg/dL (9-20); Calcium 8.4 mg/dL (8.4-10.2); Carbon Dioxide 28 mmol/L (22-30); Chloride 101 mmol/L (98-107); Estimated CRCL calculation 51 ml/min; Estimated Glomerular Filt Rate 46; Glucose 96 mg/dL (65-110); Magnesium 2.1 mg/dL (1.6-2.3); Sodium 133 mmol/L (137-145)
[2021-09-24] MEDS: NIFEdipine 30 MG TAB.ER.24 60 MG PO (08:19)
[2021-09-24] MEDS: POTASSIUM CHLORIDE 20 MEQ TABLET.ER PO (08:19)
--- NOTE | 2021-09-24 08:19 | PM.DS ---
DS: Admitting Diagnosis Discharge Date 09/24/2021 Admitting Diagnosis Acute exacerbation of CHF Elevated Troponin Hypertensive urgency Chronic renal failure Tobacco use DS: Discharge Diagnosis Discharge Diagnosis (1) Acute exacerbation of congestive heart failure: Qualifiers: Heart failure type: unspecified Qualified Code(s): I50.9 - Heart failure, unspecified Code(s): I50.9 - Heart failure, unspecified Status: Acute Assessment and Plan: -cardiology following and managing. -today carvedilol was increased to 25 mg p.o. b.i.d. and nifedipine was increased to extended release 60 mg daily. -patient having good diuresis with Lasix 40 IV b.i.d.. -still remains edematous has evidence of fluid overload. -ejection fraction 30-35% with cardiomyopathy -continue fluid restriction - 09/24/21: Date of discharge - Pt. with overall improvement. He will be discharged to home with prescriptions and will need to follow up with our [facility] team and also establish with a PCP. (2) Elevated troponin: Code(s): R77.8 - Other specified abnormalities of plasma proteins Status: Acute Assessment and Plan: -secondary to cardiac strain from heart failure. -continue telemetry -cardiology following and managing -no ACS - 09/24/21: Date of discharge - Stable. Pt without any signs or symptoms of ACS at this time. (3) Hypertensive urgency: Code(s): I16.0 - Hypertensive urgency Status: Acute Assessment and Plan: -improving. -medications adjusted today by Cardiology. -continue to monitor vital signs -cardiac diet -suggest nicotine use cessation - 09/24/21: Date pf discharge - Pt. with improved BP, tolerating changes made by Cardiology. He will need Cardiology follow up to ensure that he continues to improve. (4) Chronic renal failure: Qualifiers: Chronic kidney disease stage: unspecified stage Qualified Code(s): N18.9 - Chronic kidney disease, unspecified Code(s): N18.9 - Chronic kidney disease, unspecified Status: Acute Assessment and Plan: -monitor. -creatinine today is 1.9 with BUN 21 which is marginally improved over yesterday's - 09/24/21: Date of discharge - Stable and appearing at patient's baseline which is Grade III at 2.0/22. Pt. encouraged to have adequate and timely follow up and regular management of his chronic health conditions. (5) Tobacco use: Code(s): Z72.0 - Tobacco use Status: Acute Assessment and Plan: -encourage cessation. -declines the need for nicotine patch. - 09/24/21: Date of discharge - Pt. was counseled for 15 minutes for smoking cessation. He refuses nicotine patch. DS: Summary Hospital Course Reason for hospitalization: Acute on Chronic Heart Failure Exacerbation and Hypertensive Urgency Hospital Course: This 36 year old male patienet with history of poor compliance with medical treatments and regimens, HTN, and CHF was admitted to the hospital after noting increased dyspnea, and edema of the BLE. He had originally stated he missed a couple doses of his medications because he ran out and he does not have a regular provider to follow up with, then changed his story for this provider. He was previously hospitalized for the same in July and had an ECHO at that time that showed an EF of 30-35%. During that stay he was scheduled to follow up with Ronda Linares NP on 09/28/21 from [facility]. He was admitted at this time with Hypertensive urgency and also Acute on chronic CHF exacerbation. CXR showed cardiomegaly and mild pulmonary edema. He was consulted on by Cardiology who made some medication changes and he has tolerated. The pt. does not appear to accept the importance of controlling his current healthcare condition and has been instructed in length by myself and Cardiology. He will be discharged today as he is more stable, and he has diuresed well. He will be advised to follow up with Cardiology and obtain a PCP for
[2021-09-24] MEDS: lisinopriL 20 MG TABLET PO (08:20)
[2021-09-24] MEDS: FUROSEMIDE INJ 40 MG/4 ML VIAL IV PUSH (08:20)
[2021-09-24] MEDS: carvediloL 25 MG TABLET PO (08:20)
--- NOTE | 2021-09-24 09:34 | PM.PNCARD ---
Progress Note: A&P Assessment and Plan (1) Hypertensive urgency: Code(s): I16.0 - Hypertensive urgency Status: Acute Assessment and Plan: Amlodipine changed to nifedipine, carvedilol dose increased. Blood pressure improving (2) Acute on chronic combined systolic and diastolic CHF (congestive heart failure): Code(s): I50.43 - Acute on chronic combined systolic (congestive) and diastolic (congestive) heart failure Status: Acute Assessment and Plan: Admitted with edema and CHF. Will d/c on furosemide 40mg daily BMP in one week as outpatient OK for discharge today from a cardiac perspective Follow up in our office in 2-4 weeks Encouraged the patient to follow with us and also find a primary care physician. (3) Hypertensive kidney disease with CKD stage III: Code(s): I12.9 - Hypertensive chronic kidney disease with stage 1 through stage 4 chronic kidney disease, or unspecified chronic kidney disease; N18.30 - Chronic kidney disease, stage 3 unspecified Status: Acute Assessment and Plan: CKD stable with diuresis (4) Hypertensive cardiomyopathy: Code(s): I11.9 - Hypertensive heart disease without heart failure; I43 - Cardiomyopathy in diseases classified elsewhere Status: Acute Assessment and Plan: EF 30-35%, hypertensive cardiomyopathy Continue carvedilol, lisinopril Will d/c on some furosemide (5) Acute exacerbation of CHF (congestive heart failure): Qualifiers: Heart failure type: combined systolic and diastolic Qualified Code(s): I50.43 - Acute on chronic combined systolic (congestive) and diastolic (congestive) heart failure Code(s): I50.9 - Heart failure, unspecified Status: Acute Subjective Date/time seen: 09/24/21 09:34 Interval history: Follow-up for hypertension and cardiomyopathy. Echo EF 30-35% with moderate LVH and diastolic dysfunction in July 2021. 09/21/2021: Pt presents to the hospital with some lower extremity edema which of course is not surprising given his severe hypertension, LV systolic dysfunction, renal insufficiency. His blood pressure is significantly improved from the last hospitalization and for reasons described above he is not taking his calcium channel [place]. I will recommend advancing his carvedilol dosage to 25 mg q.12 hours, continuing the lisinopril and I will try starting long-acting nifedipine in place of the amlodipine. He is receiving IV furosemide for his lower extremity edema. He may or may not need to be discharged on some furosemide as well. For some reason troponin levels were sampled on admission and they are mild to moderately elevated and coming down. I do not see any evidence of an acute coronary syndrome at this time and I do not recommend pursuing an ischemia workup for that reason. Date of service 09/22/2021: Urinating a lot, less edema, feeling better, no shortness of breaths. Blood pressure is much better this morning. Date of service 09/23/2021: Feels good, wants to go home today, no dizziness or shortness of breath. Very good diuresis yesterday, blood pressure doing better. RN educating patient about heart healthy, low-salt diet; patient needs some direction on this. Date of service 09/24/2021: Continues to feel well. Has no swelling this morning and urine output remains good. Denies any dizziness, lightheadedness. No chest pain. Educated him regarding BP monitoring and monitoring for s/s CHF. Discussed with him that he needs to find a PCP. Also discussed that he should call our office if any swelling or other signs of CHF occur. He verbalizes understanding. Review of Systems Constitutional: Constitutional: Reports no additional constitutional complaints Eyes: Eyes: Reports no additional eye complaints ENT: Reports system reviewed and no additional complaints, except as documented and Denies epistaxis Cardiovascular: Cardiovascular: Reports as p
== END 2021-09-24 11:55 | disposition home or self-care (01) | DRG 194 ==
LOC: ANHED 13:15 → ANHIMU 15:44
PROVIDERS: Internal Medicine; Physician Assistant; Admitting Provider Internal Medicine; Emergency Provider Emergency Medicine; Visit Provider Nurse Practitioner Adult Health
DX: I13.0 Hypertensive heart and chronic kidney disease with heart failure and stage 1 through stage 4 chronic kidney disease, or unspecified chronic kidney disease (principal); I16.0 Hypertensive urgency; R77.8 Other specified abnormalities of plasma proteins; Z72.0 Tobacco use; Z82.49 Family history of ischemic heart disease and other diseases of the circulatory system; N17.9 Acute kidney failure, unspecified; N18.30 Chronic kidney disease, stage 3 unspecified; I50.43 Acute on chronic combined systolic (congestive) and diastolic (congestive) heart failure; I43 Cardiomyopathy in diseases classified elsewhere; Z79.899 Other long term (current) drug therapy
CPT/HCPCS: 36415; 71046; 80048; 80053; 80076; 83735; 83880; 84484; 85025; 85610; 85730; 93005; 96374; 96375; 96376; 99285; A9270; G0378; G0379; J1940

== ENCOUNTER 2023-12-04 05:50 | Observation (INO) | payer SELFPAY ==
[2023-12-04] VITALS (34 sets, daily range): BP systolic 145–214; BP diastolic 111–162; PULSE 64–95; RESP 16–26; TEMP 36.3–36.6; O2SAT 92–100
--- NOTE | ~2023-12-04 | CT_ITS ---
Non-contrast CT scan of the Abdomen and Pelvis Clinical indication: Epigastric pain Technique: 2.5 mm axial scans were obtained through the abdomen and pelvis without intravenous or or al contrast. Dose reduction technique was used on this scan by utilizing automated exposure control a nd iterative reconstruction technique. The dose-length product (DLP) was 534.49 mGy-cm. COMPARISON: 08/09/2021 Findings: Images through the lung bases reveal cardiomegaly. There is small right pleural effusion w ith mild mosaic attenuation pattern of the lung bases.. There is no evidence of renal or ureteral calculi. The kidneys and the ureters are nondilated. The liver, spleen, pancreas, and adrenals appear normal. Small gallstones present, with possible gall bladder wall thickening. No inflammatory change evident about the gallbladder. There is no aortic ane urysm. There is no evidence of bowel obstruction. Images through the pelvis were performed. There is no evidence of ascites or lymphadenopathy. Urinary bladder unremarkable. No pelvic mass seen. Impression: Cholelithiasis and probable mild gallbladder wall thickening, but no pericholecystic inflammatory bambi nge. Correlate clinically for acute cholecystitis. Consider HIDA scan as indicated. Small right pleural effusion with mild mosaic attenuation pattern of the lung bases, which could refl ect mild pulmonary edema. Cardiomegaly. Reviewed, dictated and finalized at [facility]. Impression: Cholelithiasis and probable mild gallbladder wall thickening, but no pericholec ystic inflammatory change. Correlate clinically for acute cholecystitis. Consid er HIDA scan as indicated. Small right pleural effusion with mild mosaic attenuation pattern of the lung b ases, which could reflect mild pulmonary edema. Cardiomegaly.
--- NOTE | ~2023-12-04 | US_ITS ---
US right upper quadrant INDICATION: Abdomen pain PROCEDURE: Realtime right upper abdominal ultrasound. COMPARISON: No prior studies for comparison. FINDINGS: The pancreas is normal without focal mass or pancreatic ductal dilation. There is gallblad karsten sludge with gallbladder wall thickening. There is normal directional flow in the portal vein. The gallbladder is normal without stones, gallbladder wall thickening or pericholecystic fluid. Comm on bile duct measures 2 mm. No sonographic Begum's sign. IMPRESSION: 1: Gallbladder sludge with gallbladder wall thickening. Consider acalculous cholecystitis in the appr opriate clinical setting. No definitive gallstones. Reviewed, dictated and finalized at location [facility]. IMPRESSION: 1: Gallbladder sludge with gallbladder wall thickening. Consider acalculous cho lecystitis in the appropriate clinical setting. No definitive gallstones.
--- NOTE | ~2023-12-04 | US_ITS ---
EXAMINATION: US renal BI, US retroperitoneal duplex ltd DATE: 12/06/2023 08:57 INDICATION: Acute on chronic renal insufficiency TECHNIQUE: 1. Multiple grayscale and color Doppler images of the kidneys were obtained. 2. Multiple grayscale and pulsed Doppler images of the aorta and renal arteries were obtained. COMPARISON: None. FINDINGS: Kidneys: The right kidney measures 11.5 x 4.3 x 4.8 cm. The left kidney measures 10.5 x 5.1 x 4.8 cm. The kidn eys demonstrate normal echogenicity. There is no hydronephrosis in either kidney. No stones identifi ed. The bladder is normal. Renal arteries/vascular: The aorta peak systolic velocity is 2 3 cm/s. The left renal artery peak systolic velocity is 41 cm/s in the distal segment and 45 cm/s in the mid segment with brisk systolic upstrokes. The proximal lef t renal artery peak systolic velocity was unable be ascertained. Arterial waveforms on the right are unable to be separate from the adjacent venous waveforms. The right renal artery peak systolic veloci ty is 45 cm/s with brisk systolic upstroke. Arterial waveforms were unable to be obtained at the prox imal to mid right renal artery. IMPRESSION: 1. Normal kidneys with no hydronephrosis. 2. No Doppler evidence of renal artery stenosis. 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 IMPRESSION: 1. Normal kidneys with no hydronephrosis. 2. No Doppler evidence of renal artery stenosis.
--- NOTE | 2023-12-04 06:14 | ED.ABDPAIN ---
HPI - Abdominal Pain General Chief Complaint: Abdominal Pain <Alfred Miles MD - Last Filed: 12/05/23 04:06> Stated Complaint: Abdominal pain <Alfred Miles MD - Last Filed: 12/05/23 04:06> Time Seen by Provider: 12/04/23 05:53 <Alfred Miles MD - Last Filed: 12/05/23 04:06> History of Present Illness HPI narrative: Patient is a 38-year-old male who presents ER with epigastric pain. Dull. Ongoing for 2 days. Worse with eating. He has had mild constipation. No previous surgeries to the abdomen. Reports he has chronic kidney disease and CHF. No fevers or chills or sweats. He had a a few shots for his brother's birthday 4 days before the pain started. Cannot identify any alleviating factors. <Alfred Miles MD - Last Filed: 12/05/23 04:06> Related Data Home Medications: Home Medications Medication Instructions Recorded Confirmed amlodipine 10 mg tablet 20 mg PO DAILY 12/04/23 12/04/23 furosemide 80 mg tablet 80 mg PO DAILY 12/04/23 12/04/23 <Alfred Miles MD - Last Filed: 12/05/23 04:06> Allergies/Adverse Reactions: Allergies Allergy/AdvReac Type Severity Reaction Status Date / Time No Known Allergies Allergy Unverified 09/12/18 18:22 <Alfred Miles MD - Last Filed: 12/05/23 04:06> Review of Systems Review of Systems: All systems reviewed & are unremarkable except as noted in HPI and below <Alfred Miles MD - Last Filed: 12/05/23 04:06> Constitutional: Constitutional: Reports no additional constitutional complaints <Alfred Miles MD - Last Filed: 12/05/23 04:06> ENT: Reports system reviewed and no additional complaints, except as documented <Alfred Miles MD - Last Filed: 12/05/23 04:06> Cardiovascular: Cardiovascular: Reports no additional cardiovascular complaints <Alfred Miles MD - Last Filed: 12/05/23 04:06> Respiratory: Respiratory: Reports no additional respiratory complaints <Alfred Miles MD - Last Filed: 12/05/23 04:06> Gastrointestinal: Gastrointestinal: Reports abdominal pain, Reports bloating, Reports constipation, Denies heartburn, Denies diarrhea, Denies nausea and Denies vomiting <Alfred Miles MD - Last Filed: 12/05/23 04:06> [facility] Past Medical History Medical History: Medical History Chronic renal failure Heart failure with reduced ejection fraction EF of 30 to 35% on echocardiogram in July 2021. Hypertension Hypertensive cardiomyopathy Hypertensive kidney disease with CKD stage III Tobacco use <Alfred Miles MD - Last Filed: 12/05/23 04:06> Surgical History Surgical History: Surgical History No history of previous surgery <Alfred Miles MD - Last Filed: 12/05/23 04:06> Family History Family History: Family History (Updated 12/04/23 @ 15:22 by Kinza Conway APRN) Father , at age 53. 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 He lives in [place], alone. He smokes about a pack a week and drinks on the weekends, approximately a few shots and a couple of beers. He also uses marijuana. His mother, Juanita Headley is his emergency contact. Smoking packs per day: 3 Smoking cigarettes per day: 60.0 Smoking status: Current every day smoker Tobacco type: cigarettes Alcohol intake: current Alcohol use details: Drinks alcohol on the weekends Substance use: current Substance use type: marijuana Do You Feel Safe in your Home?: Yes Lack of Transportation: No Lack of Food: Never True Current Housing: I Have Housing Concerned About Future Housing: No Difficulty Paying Gas/Electric Bills: No Difficulty Paying for Meds: No Cu
[2023-12-04 06:22] LABS: Basophils Percent Auto 0.4 % (0.2-1.2); Eosinophils Absolute Auto 0.1 K/mm3 (0-0.3); Eosinophils Percent Auto 0.8 % (0-4.4); Hematocrit 35.9 % (42.0-52.0); Hemoglobin 11.2 g/dL (14.0-18.0); Immature Granulocyte Absolute 0.03 K/mm3 (0.00-0.031); Immature Granulocyte Percent A 0.4 % (0-0.5); Lymphocytes Absolute Auto 1.15 K/mm3 (0.9-3.2); Lymphocytes Percent Auto 15.7 % (18.3-44.2); Mean Corpuscular HGB Conc 31.2 g/dl (32-36); Mean Corpuscular Hemoglobin 26.1 pg (26-34); Mean Corpuscular Volume 83.7 fl (80-100); Mean Platelet Volume 9.6 fl (7.4-10.4); Monocytes Absolute Auto 0.4 K/mm3 (0.1-0.6); Monocytes Percent Auto 5.6 % (2.6-8.5); Neutrophils Absolute Auto 5.7 K/mm3 (1.3-6.7); Neutrophils Percent Auto 77.1 % (45.5-73.1); Platelet Count Result 304 k/mm3 (150-375); Red Blood Count 4.29 M/mm3 (4.6-6.20); Red Cell Distribution Width 16.2 % (11.5-14.5); White Blood Count 7.3 K/mm3 (4.5-10.0)
[2023-12-04 06:32] LABS: Alanine Aminotransferase 21 U/L (6-50); Albumin Level 3.6 g/dL (3.5-5.1); Alkaline Phosphatase 81 U/L (38-126); Anion Gap 8 mmol/L (4-12); Aspartate Amino Transferase 22 U/L (17-59); Bilirubin,Total 1.1 mg/dL (0.2-1.3); Blood Urea Nitrogen 22 mg/dL (9-20); Calcium 8.7 mg/dL (8.4-10.2); Carbon Dioxide 25 mmol/L (22-30); Chloride 102 mmol/L (98-107); Estimated CRCL calculation 35 ml/min; Estimated Glomerular Filt Rate 30; Glucose 117 mg/dL (65-110); Lipase 62 U/L (23-300); Potassium 3.1 mmol/L (3.4-5.0); Sodium 135 mmol/L (137-145)
[2023-12-04] MEDS: MORPHINE SULFATE (*CRX) 4 MG/ML INJ IV PUSH (06:45)
[2023-12-04] MEDS: ONDANSETRON INJ 4 MG/2 ML VIAL IV PUSH (06:46)
[2023-12-04] MEDS: SODIUM CHLORIDE 0.9% IV 500 ML 999 ML IV CONT (07:05)
[2023-12-04 07:27] LABS: Appearance Urine Clear (Clear); Bacteria Urine None Seen /hpf; Bilirubin Urine Negative (Negative); Blood Urine Trace (Negative); Color Urine Yellow (Yellow); Glucose Urine UA Negative (Negative); Ketones Urine Trace mg/dL (Negative); Leukocyte Esterase Ur Negative LEU/UL (Negative); Nitrate Urine Negative (Negative); Protein Urine 3+ mg/dL (Negative); RBC Urine 0-2 /hpf (0-2); Squamous Epithelial Cell Urine None Seen /hpf (Few); WBC Urine 0-5 /hpf (0-3); pH Urine 5.5 (5.0-9.0)
[2023-12-04 07:53] LABS: Add Urine Microscopic? YES
[2023-12-04] MEDS: LABETALOL HCL INJ 100 MG/20 ML VIAL 20 MG IV PUSH ×3 (09:30→12:06)
[2023-12-04] MEDS: PIPERACILLIN/TAZ 2.25G/NS 50ML 2.25 GM/50 ML BAG IVPB ×4 (09:37→23:33)
[2023-12-04] MEDS: POTASSIUM CHLORIDE INJ 40 MEQ in SODIUM CHLORIDE 0.9% IV 500 ML 130 MEQ IVPB (10:32)
[2023-12-04] MEDS: SODIUM CHLORIDE 0.9% IV 1,000 ML 150 ML IV CONT (10:32)
--- NOTE | 2023-12-04 11:16 | PM.CNGS ---
Assessment and Plan Assessment and plan (1) Cholelithiasis with cholecystitis: Code(s): K80.10 - Calculus of gallbladder with chronic cholecystitis without obstruction Status: Acute Assessment and Plan: Patient presenting with epigastric and LUQ abdominal pain x 3 days, which has improved since being in the ER. He is mostly just feeling bloated and constipated at this time. He has not had a bowel movement in [address] scan of the abdomen and pelvis showed cholelithiasis with mild gallbladder wall thickening. There is also some stool throughout the colon. RUQ US showed gallbladder sludge with gallbladder wall thickening. Labs showed a normal WBC count and normal LFTs. On exam, he is moderately tender in the LUQ and LLQ, but no abdominal tenderness in the RUQ or epigastric area where you would typically expect tenderness in the setting of acute cholecystitis. Given his atypical presentation, it is not entirely clear how much of a role his gallbladder is playing in his abdominal pain. There is no indication for urgent surgical intervention at this time. We would recommend to continue IV antibiotics for now and try advancing him to a low fat diet. Some of his abdominal pain could be related to his constipation, therefore we can also try stimulating his bowels. If he continues to have abdominal pain or is unable to tolerate a diet, then we could also consider ordering a HIDA scan to further evaluate his gallbladder. Will continue to follow along while he is being admitted and treated for his acute on chronic renal failure and hypertensive urgency. (2) Hypertensive urgency: Code(s): I16.0 - Hypertensive urgency Status: Acute Assessment and Plan: He has uncontrolled hypertension with CKD and hypertensive cardiomyopathy. He presents with a blood pressure of 200/160's. BP improved following IV Labetalol in the ER. He is being admitted to the Hospitalist. (3) Constipation: Code(s): K59.00 - Constipation, unspecified Status: Acute Assessment and Plan: Patient has been constipated without a bowel movement for 4 days. This could be contributing to his abdominal pain. CT scan shows stool throughout the colon. Will try stimulating his bowels. (4) MIHAI (acute kidney injury): Code(s): N17.9 - Acute kidney failure, unspecified Status: Acute Assessment and Plan: Acute on chronic renal failure. Creatinine is up to 2.9 from his baseline of 1.9-2.0. This could be combination of his uncontrolled hypertension and decreased oral intake/dehydration over the past few days. Potassium also low at 3.1 and being replaced with IV KCL in the ER. He is currently on IV fluids, management per primary service. (5) Hypertensive cardiomyopathy: Code(s): I11.9 - Hypertensive heart disease without heart failure; I43 - Cardiomyopathy in diseases classified elsewhere Status: Acute Assessment and Plan: Last echocardiogram in 2021 showed an EF of 30-35%. (6) Hypertensive kidney disease with CKD stage III: Code(s): I12.9 - Hypertensive chronic kidney disease with stage 1 through stage 4 chronic kidney disease, or unspecified chronic kidney disease; N18.30 - Chronic kidney disease, stage 3 unspecified Status: Acute (7) Tobacco use: Code(s): Z72.0 - Tobacco use Status: Acute Assessment and Plan: Encouraged cessation. Plan I have discussed the patient's case and plan of care with Dr. Martinez. History of Present Illness Consult details Consult date: 12/04/23 Reason for consult: other (Acute cholecystitis) Requesting physician: Nic White MD Narrative: This is a 38-year-old man with uncontrolled hypertension, chronic kidney disease, hypertensive cardiomyopathy with EF of 30-35%, who presented to the ER today with complaints of epigastric abdominal pain. He reports waking up 3 days ago feeling otherwise normal. He ate a ham sandwich for lunch and shortly after develop
--- NOTE | 2023-12-04 12:20 | PC.NURSE ---
This patient, Manuel Headley, was admitted to IMU Room 200-01. Patient/family oriented to hospital policies and general routines including ID bracelet, bed and alarms, visiting hours, pain management, procedures, bathroom and other care routines, personal items, smoking policy, room service/diet, and visiting hours. Information on how to activate the Rapid Response Team has been discussed. Patient/Family are encouraged to report perceived risks to care and to ask questions if they do not understand what they are told or what they should do.
--- NOTE | 2023-12-04 13:50 | PM.IMHP ---
H&P: HPI History of Present Illness Date/Time: 12/04/23 13:50 Chief Complaint: Abdominal pain Narrative: This is a pleasant 38-year-old male with a past medical history significant for systolic congestive heart failure with reduced ejection fraction 30-35%, hypertension, diet-controlled diabetes, and chronic kidney disease who presented to the emergency room with complaints of 3 days of abdominal pain. He reports pain to mid epigastrium that radiates slightly to left upper quadrant. He describes this pain as achy without accompanying nausea or vomiting. He states passing gas and belching makes the pain better. He has never had pain like this before. He also reports not having a bowel movement for 4 days and has obvious abdominal distension. He states he usually has bowel movements 2 to 3 times a day. He denies fever or chills. Pain when he firs presented he rated his pain as 7.5/10. Pain now is rated a 3/10. In regards to his heart failure he states he was diagnosed 2 years ago here at this hospital and was discharged home with medications. Unfortunately, he does not follow with a telecom manager. He states he does not see primary care provider regularly. When I ask where he gets his medication refills from he states he goes to a clinic in [place]. He thinks the best his blood pressure has ever been is around 160/90 mmHg. At that time he was started on spironolactone 12.5 mg daily, Imdur 30 mg daily, and hydralazine 100 mg t.i.d. in addition to his Lasix 80 mg daily, Coreg 25 mg b.i.d., and amlodipine 10 mg daily. The patient states that after these medication changes he was feeling dizzy so he stopped taking the new medications and continued his Lasix, Coreg, and decided to increase his amlodipine to 2 tabs a day. In the emergency room labs were significant for white blood cell count 7.3, hemoglobin 11.2, sodium 135, potassium 3.1, BUN 22, creatinine 2.9, and glucose 117. His UA showed 3+ protein with trace ketones. CT of abdomen and pelvis showed cholelithiasis and probable mild gallbladder wall thickening without pericholecystic inflammatory changes, small right pleural effusion and cardiomegaly. Blood pressures were elevated on arrival 208/162 mm hg, heart rate 89. General surgery was consulted for possible surgical intervention. He was admitted for further workup of abdominal pain, hypertensive emergency, and MIHAI. Review of Systems Review of Systems: All systems reviewed & are unremarkable except as noted in HPI and below PMFSH Past Medical History Medical History Chronic renal failure Heart failure with reduced ejection fraction EF of 30 to 35% on echocardiogram in July 2021. Hypertension Hypertensive cardiomyopathy Hypertensive kidney disease with CKD stage III Tobacco use Surgical History Surgical History No history of previous surgery Family History Family History (Updated 12/04/23 @ 15:22 by Kinza Conway APRN) Father , at age 53. 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 He lives in [place], alone. He smokes about a pack a week and drinks on the weekends, approximately a few shots and a couple of beers. He also uses marijuana. His mother, Juanita Headley is his emergency contact. Smoking packs per day: 3 Smoking cigarettes per day: 60.0 Smoking status: Current every day smoker Tobacco type: cigarettes Alcohol intake: current Alcohol use details: Drinks alcohol on the weekends Substance use: current Substance use type: marijuana Do You Feel Safe in your Home?: Yes Lack of Transportation: No Lack of Food: Never True Current Housing: I Have Housing Concerned About Future Housing: No Difficulty Paying Gas/Electric Bills: No Difficulty Paying for Meds:
[2023-12-04] MEDS: carvediloL 25 MG TABLET PO ×2 (15:13→20:20)
[2023-12-04] MEDS: amLODIPine BESYLATE 10 MG TABLET PO (15:14)
[2023-12-04] MEDS: BISACODYL 5 MG TABLET EC 10 MG PO (15:14)
--- NOTE | 2023-12-04 15:30 | ECG_ITS ---
Test Date: 2023-12-04 16:23:45 Measurements Intervals Ledger Rate: 69 P: 23 MA: 186 QRS: -61 QRSD: 121 T: 161 QT: 474 QTc: 510 Interpretive Statements SINUS RHYTHM LEFT ATRIAL ENLARGEMENT INTRAVENTRICULAR CONDUCTION DELAY CANNOT R/O SEPTAL INFARCT, AGE INDETERMINATE ST-T WAVE ABNORMALITY IN ANTEROLAT/HIGH LAT LEADS- CONSIDER ISCHEMIA ABNORMAL ECG No previous ECG available for comparison Electronically Signed On 12-04-2023 20:36:20 CDT by Cholo Phipps D.O.
[2023-12-04 16:18] LABS: NT Pro B Type Natriuretic Pept 3290 pg/mL (19.9-100)
[2023-12-04 17:16] LABS: Glucose Point of Care 134 mg/dl (65-105)
[2023-12-04] MEDS: FUROSEMIDE INJ 40 MG/4 ML VIAL IV PUSH (17:16)
[2023-12-04] MEDS: polyethylene glycoL 3350 17 GM POWD.PACK PO (17:16)
[2023-12-04 20:14] LABS: Glucose Point of Care 158 mg/dl (65-105)
[2023-12-04] MEDS: FAMOTIDINE 20 MG TABLET PO (20:20)
[2023-12-04] MEDS: SENNA/DOCUSATE SODIUM TABLET 1 TAB PO (20:21)
[2023-12-05] VITALS (18 sets, daily range): BP systolic 166–184; BP diastolic 123–138; PULSE 64–89; RESP 14–18; TEMP 36.3–36.9; O2SAT 92–100
[2023-12-05 04:24] LABS: Basophils Percent Auto 0.4 % (0.2-1.2); Eosinophils Absolute Auto 0.1 K/mm3 (0-0.3); Eosinophils Percent Auto 1.9 % (0-4.4); Hematocrit 33.9 % (42.0-52.0); Hemoglobin 10.5 g/dL (14.0-18.0); Immature Granulocyte Absolute 0.03 K/mm3 (0.00-0.031); Immature Granulocyte Percent A 0.4 % (0-0.5); Lymphocytes Absolute Auto 1.22 K/mm3 (0.9-3.2); Lymphocytes Percent Auto 17.5 % (18.3-44.2); Mean Corpuscular Hemoglobin 26.3 pg (26-34); Mean Corpuscular Volume 84.8 fl (80-100); Mean Platelet Volume 9.7 fl (7.4-10.4); Monocytes Absolute Auto 0.5 K/mm3 (0.1-0.6); Monocytes Percent Auto 6.6 % (2.6-8.5); Neutrophils Absolute Auto 5.1 K/mm3 (1.3-6.7); Neutrophils Percent Auto 73.2 % (45.5-73.1); Platelet Count Result 249 k/mm3 (150-375); Red Cell Distribution Width 16.1 % (11.5-14.5)
[2023-12-05 04:29] LABS: Hemoglobin A1C 5.7 % (<5.7)
[2023-12-05 04:37] LABS: Alanine Aminotransferase 16 U/L (6-50); Albumin Level 3.1 g/dL (3.5-5.1); Alkaline Phosphatase 68 U/L (38-126); Anion Gap 7 mmol/L (4-12); Aspartate Amino Transferase 18 U/L (17-59); Bilirubin,Total 0.8 mg/dL (0.2-1.3); Blood Urea Nitrogen 23 mg/dL (9-20); Calcium 8.2 mg/dL (8.4-10.2); Carbon Dioxide 25 mmol/L (22-30); Chloride 103 mmol/L (98-107); Estimated CRCL calculation 36 ml/min; Estimated Glomerular Filt Rate 31; Glucose 111 mg/dL (65-110); Magnesium 1.9 mg/dL (1.6-2.3); Potassium 3.4 mmol/L (3.4-5.0); Sodium 135 mmol/L (137-145)
[2023-12-05] MEDS: PIPERACILLIN/TAZ 2.25G/NS 50ML 2.25 GM/50 ML BAG IVPB ×2 (05:10→12:04)
--- NOTE | 2023-12-05 07:42 | PM.PNGS ---
Progress Note: A&P Assessment and Plan (1) Cholelithiasis with cholecystitis: Qualifiers: Cholelithiasis location: gallbladder Cholecystitis acuity: chronic Biliary obstruction: without biliary obstruction Qualified Code(s): K80.10 - Calculus of gallbladder with chronic cholecystitis without obstruction Code(s): K80.10 - Calculus of gallbladder with chronic cholecystitis without obstruction Status: Acute Assessment and Plan: Pain resolved and patient tolerating low-fat diet. Advised patient that I would prefer that his blood pressure and kidney function be normalized or at least optimized before proceeding with surgery. Continue low-fat diet. If patient discharged this weekend, have him follow up with me in the office in 2 weeks. Subjective Subjective Date/Time Seen: 12/05/23 07:42 Patient reports: pain is less and tolerating a regular diet (Low-fat diet) Interval history: Had short episode abdominal pain last night. He awakened and noticed some pain but simply changed position and the pain resolved quickly thereafter. No nausea, vomiting, bloating. Hungry this morning. Review of Systems Review of Systems: All systems reviewed & are unremarkable except as noted in HPI and below (HPI) Exam Const: General: cooperative, comfortable, no acute distress, awake, lethargic, tired appearing and average body habitus Orientation/consciousness: patient oriented x3 and No confusion GI: Inspection: normal to inspection, non-distended and no visible herniation GI Palp: Yes Soft to palpation, No Tenderness to palpation present (GI), No Guarding due to palpation present (GI), No Hernia present and No Palpable mass present Auscultation: normal bowel sounds Objective Data Vital Signs Vital Signs: Vital Signs - 24 hr 12/04/23 08:55 12/04/23 09:00 12/04/23 09:01 Temperature Pulse Rate 88 87 88 Respiratory Rate Blood Pressure 214/152 H Pulse Oximetry 100 100 100 Oxygen Delivery 12/04/23 09:02 12/04/23 09:15 12/04/23 09:56 Temperature Pulse Rate 87 86 68 Respiratory Rate Blood Pressure Pulse Oximetry 100 100 97 Oxygen Delivery 12/04/23 10:00 12/04/23 10:05 12/04/23 11:11 Temperature Pulse Rate 73 67 74 Respiratory Rate 16 Blood Pressure 188/151 H 148/120 H Pulse Oximetry 100 95 97 Oxygen Delivery 12/04/23 10:23 12/04/23 10:30 12/04/23 11:13 Temperature Pulse Rate 67 71 70 Respiratory Rate 18 Blood Pressure 162/135 H Pulse Oximetry 95 94 100 Oxygen Delivery 12/04/23 11:14 12/04/23 11:15 12/04/23 12:20 Temperature 36.3 C L Pulse Rate 70 68 74 Respiratory Rate 19 18 Blood Pressure 174/139 H 183/128 H Pulse Oximetry 100 100 100 Oxygen Delivery 12/04/23 12:21 12/04/23 12:30 12/04/23 14:00 Temperature Pulse Rate 64 73 Respiratory Rate Blood Pressure Pulse Oximetry Oxygen Delivery Room Air 12/04/23 15:13 12/04/23 16:00 12/04/23 16:00 Temperature 36.5 C Pulse Rate 73 75 Respiratory Rate 18 Blood Pressure 172/132 H Pulse Oximetry 95 Oxygen Delivery Room Air 12/04/23 16:00 12/04/23 18:00 12/04/23 19:45 Temperature 36.4 C Pulse Rate 73 70 66 Respiratory Rate 18 Blood Pressure 156/113 H Pulse Oximetry 94 Oxygen Delivery 12/04/23 20:20 12/04/23 20:30 12/04/23 20:00 Temperature Pulse Rate 72 72 73 Respiratory Rate 18 Blood Pressure Pulse Oximetry 94 Oxygen Delivery Room Air 12/04/23 22:00 12/04/23 21:10 12/04/23 23:38 Temperature 36.6 C Pulse Rate 70 70 Respiratory Rate 18 Blood Pressure 145/111 H Pulse Oximetry 94 92 Oxygen Delivery Room Air 12/04/23 23:40 12/05/23 00:00 12/05/23 02:00 Temperature Pulse Rate 70 65 66 Respiratory Rate 18 Blood Pressure Pulse Oximetry 92 Oxygen Delivery Room Air 12/05/23 03:30 12/05/23 04:00 12/05/23 04:00 Temperature 36.9 C Pulse Rate 66 73 64 Respiratory Rate 18 1
[2023-12-05 08:32] LABS: Glucose Point of Care 108 mg/dl (65-105)
--- NOTE | 2023-12-05 09:29 | PM.IMPN ---
Progress Note: A&P Assessment and Plan (1) Hypertensive emergency: Code(s): I16.1 - Hypertensive emergency Status: Acute Assessment and Plan: Blood pressure is 208/162 mm hg, HR 89 with acute chronic MIHAI. Patient was asymptomatic. Home regimen of amlodipine 10 mg daily, Coreg 25 mg b.i.d., and Lasix 80 mg daily. He received labetalol 20 mg IV push x4 doses in the ED with minimal improvement. Admitted to IMU, on telemetry Restarting home Coreg 25 mg BID, Amlodipine 10 mg daily. Hold home Lasix and will give Lasix 40 mg IVP x1. Cardiomegaly, pleural effusion on imaging with pitting edema and crackles on exam. Stop IVF as he is taking a diet and already hypertensive with s/s of fluid overload. PRN hydralazine for SBP > 180 mm hg q 6 hours Daily CMP (2) CHF (congestive heart failure): Qualifiers: Heart failure chronicity: acute Heart failure type: unspecified Qualified Code(s): I50.9 - Heart failure, unspecified Code(s): I50.9 - Heart failure, unspecified Status: Acute Assessment and Plan: HFrEF. Last ECHO from 07/2021 showed LV systolic function moderately reduced with EF estimated at 30-35% ECHO ordered EKG given epigastric pain No troponin as he is not having chest pain and likely to be elevated 2/2 demand from HTN BNP 3290 Lasix 40 mg IVP Low sodium diet strict intake and output daily weight Medications will need to be optimized prior to discharge. Was previously on lisinopril but has not been taking. Cardiology was consulted for assistance in management and to establish care for follow up. Started on low dose Entresto. Rec's are appreciated. (3) MIHAI (acute kidney injury): Code(s): N17.9 - Acute kidney failure, unspecified Status: Acute Assessment and Plan: Baseline Cr seems to range 1.90-2.0 strict I&O daily CMP avoid nephrotoxic agents Cr 2.8 renal ultrasound duplex ordered, NPO at midnight nephrology consulted, recs appreciated. Patient will need outpatient follow up. (4) Cholelithiasis with cholecystitis: Qualifiers: Biliary obstruction: without biliary obstruction Cholecystitis acuity: chronic Cholelithiasis location: gallbladder Qualified Code(s): K80.10 - Calculus of gallbladder with chronic cholecystitis without obstruction Code(s): K80.10 - Calculus of gallbladder with chronic cholecystitis without obstruction Status: Acute Assessment and Plan: Epigastric abdominal pain without nausea, vomiting CT abdomen and pelvis shows cholelithiasis and probable mild gallbladder wall thickening Right upper quadrant showed gallbladder sludge with gallbladder wall thickening consider acalculous cholecystitis. General surgery was consulted. Patient's pain had improved so he was trialed on a low-fat diet. Most likely will need follow-up as an outpatient for laparoscopic cholecystectomy. If his pain returns surgery will continue to follow along and may decide on surgery while inpatient. He was started on Zosyn. White count 7.3. Afebrile. 12/04 will stop zosyn now. Tylenol, [place], and Dilaudid for pain Pepcid b.i.d., simethicone for bloating RESOLVED (5) Constipation: Code(s): K59.00 - Constipation, unspecified Status: Acute Assessment and Plan: Last bowel movement 4 days ago with abdominal distention Miralax daily Senna nightly can try lactulose if no improvement (6) Tobacco use: Code(s): Z72.0 - Tobacco use Status: Acute Assessment and Plan: Encourage cessation Currently not ready to quit Nicotine patch as needed Plan Feeding: Low-sodium, low-fat Analgesia: Tylenol, [place], and Dilaudid Thromboembolic prophylaxis: SCDs Ulcer prophylaxis: Pepcid Glycemic control: Reports diet controlled diabetic diet Bowel regimen: miralax, senna Lines: PIV Antibiotics: zosyn Disposition: Patient came in with abdominal pain and found
[2023-12-05] MEDS: FAMOTIDINE 20 MG TABLET PO ×2 (09:33→20:17)
[2023-12-05] MEDS: carvediloL 25 MG TABLET PO ×2 (09:33→20:16)
[2023-12-05] MEDS: amLODIPine BESYLATE 10 MG TABLET PO (09:33)
[2023-12-05] MEDS: NICOTINE (*PBKC) 7 MG PATCH 1 PATCH TRANSDERM (09:33)
[2023-12-05] MEDS: PERFLUTREN LIPID MICROSPHERES 1.5 ML VIAL DILUTED TO 10 ML TOTAL VOLUME IV PUSH (09:34)
--- NOTE | 2023-12-05 11:15 | PM.CNCAR ---
Assessment and Plan Assessment and plan (1) Hypertensive cardiomyopathy: Code(s): I11.9 - Hypertensive heart disease without heart failure; I43 - Cardiomyopathy in diseases classified elsewhere Status: Acute Assessment and Plan: EF 30%, grade 2 diastolic dysfunction. Will initiate low dose Entresto. Closely monitor renal function, GFR in particular as his GFR is just at cutoff (30). Caution to avoid too much of a decrease in BP too quickly Will see how he responds to Entresto and adjust antihypertensive regimen as appropriate We can also add jardiance but this can be done as outpatient (2) Hypertensive kidney disease with CKD stage III: Code(s): I12.9 - Hypertensive chronic kidney disease with stage 1 through stage 4 chronic kidney disease, or unspecified chronic kidney disease; N18.30 - Chronic kidney disease, stage 3 unspecified Status: Acute Assessment and Plan: Recommend nephrology consultation for ongoing management (3) Hypertensive urgency: Code(s): I16.0 - Hypertensive urgency Status: Acute Assessment and Plan: As above. History of Present Illness History of Present Illness Consult date/time: 12/05/23 11:15 Requesting physician: Kinza Conway APRN Consult reason: hypertension Reason For Visit: acute cholecystitis,hypokamlemia,maya,uncontrolled Narrative: Manuel Headley is a 38 year old male with hypertension and hypertensive heart disease. He presents to the hospital with a chief complaint of abdominal pain and has been found to be significantly hypertensive. He reports compliance with his medications and states his SBP usually runs in the 130's, DBP in the 110-120's. His blood pressure at the time of presentation was 208/162 and has improved so SBP in the 160's to 170's. He denies any chest pain, palpitations, shortness of breath. He has noticed some lower extremity swelling over the past few weeks. His abdominal pain has resolved. At the time of my evaluation he is lying comfortably in bed eating lunch with no complaints. Review of Systems Review of Systems: All systems reviewed & are unremarkable except as noted in HPI and below PMFSH Past Medical History Medical History Chronic renal failure Heart failure with reduced ejection fraction EF of 30 to 35% on echocardiogram in July 2021. Hypertension Hypertensive cardiomyopathy Hypertensive kidney disease with CKD stage III Tobacco use Surgical History Surgical History No history of previous surgery Family History Family History Father , at age 53. 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 He smokes about a pack a week and drinks on the weekends, approximately a few shots and a couple of beers. He also uses marijuana. His mother, Juanita Headley is his emergency contact. Smoking packs per day: 3 Smoking cigarettes per day: 60.0 Smoking status: Current every day smoker Tobacco type: cigarettes Alcohol intake: current Alcohol use details: Drinks alcohol on the weekends Substance use: current Substance use type: marijuana Do You Feel Safe in your Home?: Yes Lack of Transportation: No Lack of Food: Never True Current Housing: I Have Housing Concerned About Future Housing: No Difficulty Paying Gas/Electric Bills: No Difficulty Paying for Meds: No Currently Unemployed: No Education: Decline to Answer Difficulty w/ Childcare or Family Care: No Living arrangements: with family Occupation/Education: occupation Spiritual care concerns: No Meds Home Medications and Allergies Home Medications Medication Instructions Recorded Confir
[2023-12-05] MEDS: LACTULOSE 20 GM/30 ML UDC PO (12:04)
[2023-12-05 12:50] LABS: Glucose Point of Care 115 mg/dl (65-105)
--- NOTE | 2023-12-05 15:18 | ECHO_ITS ---
Patient Info Name: Manuel Headley Age: 38 years : 1985 Gender: Male Ht: 72 in Wt: 187 lbs BSA: 2.08 m2 HR: 75 bpm BP: 167 / 130 mmHg Heart Rhythm: Sinus Rhythm Technical Quality: Good Exam Date: 12/05/2023 9:03 AM Exam Location: Echo Lab Patient Status: Inpatient Admit Date: 12/04/2023 Staff Ordering Physician: Kinza Conway APRN Chief Technician X Ray: Gui Swain RDCS Attending Provider: Simran Trejo MD Referring Physician: Zoraida POZO; Exam Type: CA echo dop color flow w con Study Info Indications - CHF Complete two-dimensional, color flow and Doppler transthoracic echocardiogram is performed with contrast to opacify the left ventricle and to improve the deliniation of the left ventricle endocardial borders. Contrast/Agitated Saline Contrast/Ag. Saline: Definity Amount: 5.00 ml Existing IV Access: Yes Summary 1. Definity contrast injected to improve visualization. 2. Mild LV enlargement with moderate LVH and significantly reduced systolic function visually estimated ejection fraction 30%. 3. Grade 2 diastolic noncompliance. 4. Dilated left atrium. 5. Compared to echocardiogram from this laboratory July of 2021 the findings are unchanged. Left Ventricle Left ventricular chamber dimension is mildly enlarged. Left ventricular systolic function is severely reduced, estimated at 30-35%. There is moderate concentric increased left ventricular wall thickness. The left ventricular diastolic function is grade II diastolic dysfunction. Right Ventricle Right ventricular chamber dimension is normal. Left Atria Left atrial chamber dimension is severely enlarged. Right Atria Right atrial chamber dimension is normal. Aortic Valve The aortic valve is normal. Pulmonic Valve The pulmonic valve is normal. Mitral Valve The mitral valve has normal leaflets. Tricuspid Valve The tricuspid valve leaflets are normal. Pericardium/Pleural The pericardium appears normal. Aorta The aortic root size at the sinus of Valsalva is normal. Left Ventricular Outflow Tract Name Value Normal LVOT 2D LVOT Diameter 2.69 cm LVOT Doppler LVOT Peak Gradient 3 mmHg LVOT Mean Gradient 2 mmHg LVOT VTI 15.28 cm LVOT VTI/AV VTI Ratio 0.87 LVOT Stroke Volume 87.05 ml LVOT CO 4.61 l/min LVOT CI 2.21 L/min/m2 Pulmonic Valve Name Value Normal PV Doppler PV Peak Gradient 2 mmHg Mitral Valve Name Value Normal MV Doppler MV Peak Gradient
--- NOTE | 2023-12-05 15:25 | PM.CNNEP ---
Assessment and Plan Assessment and plan (1) MIHAI (acute kidney injury): Code(s): N17.9 - Acute kidney failure, unspecified Status: Acute Assessment and Plan: is this MIHAI or just progression of disease(?) suspect more the latter than former... check urine studies and renal u/s + dopplers follow trend of repeat labs and UOP consider serological work-up if continues to deteriorate (2) Stage 3b chronic kidney disease: Code(s): N18.32 - Chronic kidney disease, stage 3b Status: Chronic Assessment and Plan: creatinine running ~ 1.9 - 2.2mg/dl since 2021 presumably due to hypertension and his known cardiomyopathy/depressed EF (3) Hypertension: Qualifiers: Hypertension type: unspecified Qualified Code(s): I10 - Essential (primary) hypertension Code(s): I10 - Essential (primary) hypertension Status: Chronic Assessment and Plan: systolic BP > 200 on admission however, remains asymptomatic resumed on home medications and PRN IV hydralazine check renal duplex to r/o renal artery stenosis will d/c amlodipine in favor of nifedipine XL follow trend of BP readings (4) CHF (congestive heart failure): Qualifiers: Heart failure chronicity: acute Heart failure type: unspecified Qualified Code(s): I50.9 - Heart failure, unspecified Code(s): I50.9 - Heart failure, unspecified Status: Acute Assessment and Plan: noted recent echo with reduced EF elevated BNP on admission as well s/p IV lasix with improving LE edema Cardiology recommendations noted initiated on Entresto follow daily weights, I/Os, and volume status (5) Cholelithiasis with cholecystitis: Qualifiers: Cholelithiasis location: gallbladder Cholecystitis acuity: chronic Biliary obstruction: without biliary obstruction Qualified Code(s): K80.10 - Calculus of gallbladder with chronic cholecystitis without obstruction Code(s): K80.10 - Calculus of gallbladder with chronic cholecystitis without obstruction Status: Acute Assessment and Plan: noted epigastric abdominal pain without nausea or vomiting on admission CT abdomen and pelvis shows cholelithiasis and probable mild gallbladder wall thickening Right upper quadrant showed gallbladder sludge with gallbladder wall thickening consider acalculous cholecystitis Surgery recommendations noted continue supportive therapy I will continue follow the patient with you while he remains hospitalized and make further recommendations as deemed necessary. Thank you for allowing me to participate in care this patient. History of Present Illness Reason for Consult Consult date: 12/05/23 Reason for consult: chronic renal failure Chief Complaint Chief complaint: acute cholecystitis,hypokamlemia,mihai,uncontrolled History of Present Illness Narrative: The patient is a 38-year-old male with a past medical history as outlined below who presented to [facility] Emergency room with complaints of abdominal pain. He reports the abdominal pain has been going on for the past three days and continues to worsen. The pain is localized to his mid epigastrium and radiates slightly to his left upper quadrant. He describes the pain as an achy sensation without associated nausea or vomiting. Apparently, passing flatus and belching seems to make the pain better. He also reports that he has not had a bowel movement in the last for five days when at baseline, he normally has at least 2-3 bowel movements a day. No apparent fevers, chills, lightheadedness, palpitations, dizziness, or syncope. Given the persistence of his abdominal pain without any improvement, he came to the ER for further assessment. Workup and evaluation in the emergency room demonstrated the patient to be quite hypertensive with a systolic BP greater than 200. routine blood test demonstrated a normal white blood cell
--- NOTE | 2023-12-05 15:25 | P.CONNP_ITS ---
Assessment and Plan Assessment and plan (1) MIHAI (acute kidney injury): Code(s): N17.9 - Acute kidney failure, unspecified Status: Acute Assessment and Plan: * is this MIHAI or just progression of disease(?) * suspect more the latter than former... * check urine studies and renal u/s + dopplers * follow trend of repeat labs and UOP * consider serological work-up if continues to deteriorate (2) Stage 3b chronic kidney disease: Code(s): N18.32 - Chronic kidney disease, stage 3b Status: Chronic Assessment and Plan: * creatinine running ~ 1.9 - 2.2mg/dl since 2021 * presumably due to hypertension and his known cardiomyopathy/depressed EF (3) Hypertension: Qualifiers: Hypertension type: unspecified Qualified Code(s): I10 - Essential (primary) hypertension Code(s): I10 - Essential (primary) hypertension Status: Chronic Assessment and Plan: * systolic BP > 200 on admission * however, remains asymptomatic * resumed on home medications and PRN IV hydralazine * check renal duplex to r/o renal artery stenosis * will d/c amlodipine in favor of nifedipine XL * follow trend of BP readings (4) CHF (congestive heart failure): Qualifiers: Heart failure chronicity: acute Heart failure type: unspecified Qualified Code(s): I50.9 - Heart failure, unspecified Code(s): I50.9 - Heart failure, unspecified Status: Acute Assessment and Plan: * noted recent echo with reduced EF * elevated BNP on admission as well * s/p IV lasix with improving LE edema * Cardiology recommendations noted * initiated on Entresto * follow daily weights, I/Os, and volume status (5) Cholelithiasis with cholecystitis: Qualifiers: Cholelithiasis location: gallbladder Cholecystitis acuity: chronic [place] iary obstruction: without biliary obstruction Qualified Code(s): K80.10 - Calculus of gallbladder with chronic cholecystitis without obstruction Code(s): K80.10 - Calculus of gallbladder with chronic cholecystitis without obstruction Status: Acute Assessment and Plan: * noted epigastric abdominal pain without nausea or vomiting on admission * CT abdomen and pelvis shows cholelithiasis and probable mild gallbladder wall thickening * Right upper quadrant showed gallbladder sludge with gallbladder wall thickening consider acalculous cholecystitis * Surgery recommendations noted * continue supportive therapy I will continue follow the patient with you while he remains hospitalized and make further recommendations as deemed necessary. Thank you for allowing me to participate in care this patient. History of Present Illness Reason for Consult Consult date: 12/05/23 Reason for consult: chronic renal failure Chief Complaint Chief complaint: acute cholecystitis,hypokamlemia,mihai,uncontrolled History of Present Illness Narrative: The patient is a 38-year-old male with a past medical history as outlined below who presented to [facility] Emergency room with complaints of abdominal pain. He reports the abdominal pain has been going on for the past three days and continues to worsen. The pain is localized to his mid epigastrium and radiates slightly to his left upper quadrant. He describes the pain as an achy sensation without associated nausea or vomiting. Apparently, passing flatus and belching seems to make the pain better. He also reports that he has not had a bowel movement in the last for five days when at baseline, he normally has at least 2- 3 bowel movements a
[2023-12-05 16:45] LABS: Glucose Point of Care 73 mg/dl (65-105)
[2023-12-05 19:59] LABS: Glucose Point of Care 133 mg/dl (65-105)
[2023-12-05] MEDS: SACUBITRIL/VALSARTAN 24-26 MG TABLET 1 TAB PO (20:17)
[2023-12-05] MEDS: SENNA/DOCUSATE SODIUM TABLET 1 TAB PO (20:17)
[2023-12-05] MEDS: HYDROcodone/acetaminophen (*CRX) 5-325 MG TABLET 1 TAB PO (20:17)
[2023-12-06] VITALS (12 sets, daily range): BP systolic 159–189; BP diastolic 111–136; PULSE 54–75; RESP 16–20; TEMP 36.2–36.6; O2SAT 97–100
[2023-12-06 05:03] LABS: Creatinine Urine 81.2 mg/dL; Total Protein Urine Random 130 mg/dL
[2023-12-06 05:07] LABS: Eosinophil Urine None Seen % (None Seen); Urine Eos QC 2nd Tech Confirmed
[2023-12-06 05:47] LABS: Basophils Percent Auto 0.4 % (0.2-1.2); Eosinophils Absolute Auto 0.1 K/mm3 (0-0.3); Eosinophils Percent Auto 1.8 % (0-4.4); Hematocrit 34.7 % (42.0-52.0); Hemoglobin 10.7 g/dL (14.0-18.0); Immature Granulocyte Absolute 0.02 K/mm3 (0.00-0.031); Immature Granulocyte Percent A 0.3 % (0-0.5); Lymphocytes Absolute Auto 1.26 K/mm3 (0.9-3.2); Lymphocytes Percent Auto 17.4 % (18.3-44.2); Mean Corpuscular HGB Conc 30.8 g/dl (32-36); Mean Corpuscular Volume 84.4 fl (80-100); Mean Platelet Volume 10.3 fl (7.4-10.4); Monocytes Absolute Auto 0.6 K/mm3 (0.1-0.6); Monocytes Percent Auto 7.9 % (2.6-8.5); Neutrophils Absolute Auto 5.2 K/mm3 (1.3-6.7); Neutrophils Percent Auto 72.2 % (45.5-73.1); Platelet Count Result 298 k/mm3 (150-375); Red Blood Count 4.11 M/mm3 (4.6-6.20); Red Cell Distribution Width 16.5 % (11.5-14.5); White Blood Count 7.2 K/mm3 (4.5-10.0)
[2023-12-06 05:51] LABS: Alanine Aminotransferase 14 U/L (6-50); Alkaline Phosphatase 64 U/L (38-126); Anion Gap 7 mmol/L (4-12); Aspartate Amino Transferase 17 U/L (17-59); Bilirubin,Total 0.5 mg/dL (0.2-1.3); Blood Urea Nitrogen 18 mg/dL (9-20); Calcium 8.1 mg/dL (8.4-10.2); Carbon Dioxide 24 mmol/L (22-30); Chloride 105 mmol/L (98-107); Estimated CRCL calculation 38 ml/min; Estimated Glomerular Filt Rate 33; Glucose 90 mg/dL (65-110); Potassium 3.4 mmol/L (3.4-5.0); Sodium 136 mmol/L (137-145)
[2023-12-06 08:57] LABS: Glucose Point of Care 88 mg/dl (65-105)
--- NOTE | 2023-12-06 08:57 | P.PNIM_ITS ---
Progress Note: A&P Assessment and Plan (1) Hypertensive emergency: Code(s): I16.1 - Hypertensive emergency Status: Acute Assessment and Plan: Blood pressure is 208/162 mm hg, HR 89 with acute chronic MIHAI. Patient was asymptomatic. Home regimen of amlodipine 10 mg daily, Coreg 25 mg b.i.d., and Lasix 80 mg daily. He received labetalol 20 mg IV push x4 doses in the ED with minimal improvement. * Admitted to IMU, on telemetry * Restarting home Coreg 25 mg BID, Amlodipine 10 mg daily. Hold home Lasix and will give Lasix 40 mg IVP x1. Cardiomegaly, pleural effusion on imaging with pitting edema and crackles on exam. * Stop IVF as he is taking a diet and already hypertensive with s/s of fluid overload. * PRN hydralazine for SBP > 180 mm hg q 6 hours * Daily CMP (2) CHF (congestive heart failure): Qualifiers: Heart failure chronicity: acute Heart failure type: unspecified Qualified Code(s): I50.9 - Heart failure, unspecified Code(s): I50.9 - Heart failure, unspecified Status: Acute Assessment and Plan: HFrEF. Last ECHO from 07/2021 showed LV systolic function moderately reduced with EF estimated at 30-35% * ECHO ordered * EKG given epigastric pain * No troponin as he is not having chest pain and likely to be elevated 2/2 demand from HTN * BNP 3290 * Lasix 40 mg IVP * Low sodium diet * strict intake and output * daily weight * Medications will need to be optimized prior to discharge. Was previously on lisinopril but has not been taking. * Cardiology was consulted for assistance in management and to establish care for follow up. Started on low dose Entresto. Rec's are appreciated. (3) MIHAI (acute kidney injury): Code(s): N17.9 - Acute kidney failure, unspecified Status: Acute Assessment and Plan: Baseline Cr seems to range 1.90-2.0 * strict I&O * daily CMP * avoid nephrotoxic agents * Cr 2.8 * renal ultrasound duplex ordered, NPO at midnight * nephrology consulted, recs appreciated. Patient will need outpatient follow up. (4) Cholelithiasis with cholecystitis: Qualifiers: Biliary obstruction: without biliary obstruction Cholecystitis acuity: chronic Cholelithiasis location: gallbladder Qualified Code(s): K80.10 - Calculus of gallbladder with chronic cholecystitis without obstruction Code(s): K80.10 - Calculus of gallbladder with chronic cholecystitis without obstruction Status: Acute Assessment and Plan: Epigastric abdominal pain without nausea, vomiting * CT abdomen and pelvis shows cholelithiasis and probable mild gallbladder wall thickening * Right upper quadrant showed gallbladder sludge with gallbladder wall thickening consider acalculous cholecystitis. * General surgery was consulted. Patient's pain had improved so he was trialed on a low-fat diet. Most likely will need follow-up as an outpatient for laparoscopic cholecystectomy. If his pain returns surgery will continue to follow along and may decide on surgery while inpatient. * He was started on Zosyn. White count 7.3. Afebrile. 12/04 will stop zosyn now. * Tylenol, [place], and Dilaudid for pain * Pepcid b.i.d., simethicone for bloating RESOLVED (5) Constipation: Code(s): K59.00 - Constipation, unspecified Status: Acute Assessment and Plan: Last bowel movement 4 days ago with abdominal distention * Miralax daily * Senna nightly * can try lactulose if no improvement (6) Tobacco use: Code(s): Z72.0 - Tobacco use Status: Acute Asses
[2023-12-06] MEDS: NICOTINE (*PBKC) 7 MG PATCH 1 PATCH TRANSDERM (09:59)
[2023-12-06] MEDS: SACUBITRIL/VALSARTAN 24-26 MG TABLET 1 TAB PO (10:00)
[2023-12-06] MEDS: NIFEdipine 30 MG TAB.ER.24 PO (10:00)
[2023-12-06] MEDS: FAMOTIDINE 20 MG TABLET PO (10:00)
[2023-12-06] MEDS: carvediloL 25 MG TABLET PO (10:00)
--- NOTE | 2023-12-06 10:33 | PM.PNNEP ---
Progress Note: A&P Assessment and Plan (1) MIHAI (acute kidney injury): Code(s): N17.9 - Acute kidney failure, unspecified Status: Acute Assessment and Plan: mild improvement noted is this MIHAI or just progression of disease(?) suspect more the latter than former... evaluation to date noted: urine sodium not done imaging with normal kidneys and no evidence of renal artery stenosis 1600mg of proteinuria urine eosinophils negative follow trend of repeat labs and UOP (2) Stage 3b chronic kidney disease: Code(s): N18.32 - Chronic kidney disease, stage 3b Status: Chronic Assessment and Plan: creatinine running ~ 1.9 - 2.2mg/dl since 2021 presumably due to hypertension and his known cardiomyopathy/depressed EF (3) Hypertension: Qualifiers: Hypertension type: unspecified Qualified Code(s): I10 - Essential (primary) hypertension Code(s): I10 - Essential (primary) hypertension Status: Chronic Assessment and Plan: systolic BP > 200 on admission however, remains asymptomatic resumed on home medications and PRN IV hydralazine no evidence of GRADY by renal duplex d/c amlodipine in favor of nifedipine XL - can titrate nifedipine as tolerated follow trend of BP readings (4) CHF (congestive heart failure): Qualifiers: Heart failure chronicity: acute Heart failure type: unspecified Qualified Code(s): I50.9 - Heart failure, unspecified Code(s): I50.9 - Heart failure, unspecified Status: Acute Assessment and Plan: noted recent echo with reduced EF elevated BNP on admission as well s/p IV lasix with improving LE edema Cardiology recommendations noted initiated on Entresto follow daily weights, I/Os, and volume status (5) Cholelithiasis with cholecystitis: Qualifiers: Cholelithiasis location: gallbladder Cholecystitis acuity: chronic Biliary obstruction: without biliary obstruction Qualified Code(s): K80.10 - Calculus of gallbladder with chronic cholecystitis without obstruction Code(s): K80.10 - Calculus of gallbladder with chronic cholecystitis without obstruction Status: Acute Assessment and Plan: noted epigastric abdominal pain without nausea or vomiting on admission CT abdomen and pelvis shows cholelithiasis and probable mild gallbladder wall thickening Right upper quadrant showed gallbladder sludge with gallbladder wall thickening consider acalculous cholecystitis Surgery recommendations noted continue supportive therapy Will continue to follow. Subjective Date/time seen: 12/06/23 10:33 Interval history: Follow-up for renal insufficiency/chronic kidney disease (acute on chronic versus progression of CKD). Renal function remains relatively stable at this time; blood pressure control remains somewhat erratic still - amlodipine changed to nifedipine today; no other issues/events overnight or earlier this morning; no apparent distress noted. Exam Narrative: General: WD/WN male in NAD Heart: normal S1 and S2; no rub Lungs: clear anteriorly; decreased at bases Abdomen: soft, nontender, nondistended, positive bowel sounds Extremities: no cyanosis or clubbing; trace - 1+ edema Skin: warm and dry Objective Data Vital Signs Vital Signs: Vital Signs Temp Pulse Resp BP Pulse Ox O2 Del Method 12/06/23 10:00 67 12/06/23 08:10 189/126 H 12/06/23 08:04 97.9 F 67 16 174/130 H 100 12/06/23 05:45 54 L 12/06/23 04:00 55 L 12/06/23 04:48 97.4 F L 62 20 159/112 H 100 12/06/23 00:00 67 18 100 Room Air 12/06/23 00:00 66 12/05/23 23:50 97.5 F L 67 18 178/130 H 100 12/05/23 22:00 70 12/05/23 20:00 76 12/05/23 20:00 75 16 96 Room Air 12/05/23 20:16 68 12/05/23 19:32 97.8 F 75 16 180/135 H 100 12/05/23 16:00 89 12/05/23 15:42 97.9 F 80
--- NOTE | 2023-12-06 10:33 | P.PNNP_ITS ---
Progress Note: A&P Assessment and Plan (1) MIHAI (acute kidney injury): Code(s): N17.9 - Acute kidney failure, unspecified Status: Acute Assessment and Plan: * mild improvement noted * is this MIHAI or just progression of disease(?) * suspect more the latter than former... * evaluation to date noted: * urine sodium not done * imaging with normal kidneys and no evidence of renal artery stenosis * 1600mg of proteinuria * urine eosinophils negative * follow trend of repeat labs and UOP (2) Stage 3b chronic kidney disease: Code(s): N18.32 - Chronic kidney disease, stage 3b Status: Chronic Assessment and Plan: * creatinine running ~ 1.9 - 2.2mg/dl since 2021 * presumably due to hypertension and his known cardiomyopathy/depressed EF (3) Hypertension: Qualifiers: Hypertension type: unspecified Qualified Code(s): I10 - Essential (primary) hypertension Code(s): I10 - Essential (primary) hypertension Status: Chronic Assessment and Plan: * systolic BP > 200 on admission * however, remains asymptomatic * resumed on home medications and PRN IV hydralazine * no evidence of GRADY by renal duplex * d/c amlodipine in favor of nifedipine XL - can titrate nifedipine as tolerated * follow trend of BP readings (4) CHF (congestive heart failure): Qualifiers: Heart failure chronicity: acute Heart failure type: unspecified Qualified Code(s): I50.9 - Heart failure, unspecified Code(s): I50.9 - Heart failure, unspecified Status: Acute Assessment and Plan: * noted recent echo with reduced EF * elevated BNP on admission as well * s/p IV lasix with improving LE edema * Cardiology recommendations noted * initiated on Entresto * follow daily weights, I/Os, and volume status (5) Cholelithiasis with cholecystitis: Qualifiers: Cholelithiasis location: gallbladder Cholecystitis acuity: chronic Biliary obstruction: without biliary obstruction Qualified Code(s): K80.10 - Calculus of gallbladder with chronic cholecystitis without obstruction Code(s): K80.10 - Calculus of gallbladder with chronic cholecystitis without obstruction Status: Acute Assessment and Plan: * noted epigastric abdominal pain without nausea or vomiting on admission * CT abdomen and pelvis shows cholelithiasis and probable mild gallbladder wall thickening * Right upper quadrant showed gallbladder sludge with gallbladder wall thickenin g consider acalculous cholecystitis * Surgery recommendations noted * continue supportive therapy Will continue to follow. Subjective Date/time seen: 12/06/23 10:33 Interval history: Follow-up for renal insufficiency/chronic kidney disease (acute on chronic versus progression of CKD). Renal function remains relatively stable at this time; blood pressure control remains somewhat erratic still - amlodipine changed to nifedipine today; no other issues/events overnight or earlier this morning; no apparent distress noted. Exam Narrative: General: WD/WN male in NAD Heart: normal S1 and S2; no rub Lungs: clear anteriorly; decreased at bases Abdomen: soft, nontender, nondistended, positive bowel sounds Extremities: no cyanosis or clubbing; trace - 1+ edema Skin: warm and dry Objective Data Vital Signs Vital Signs: Vital Signs Temp Pulse Resp BP Pulse Ox O2 Del
[2023-12-06 12:00] LABS: Glucose Point of Care 92 mg/dl (65-105)
--- NOTE | 2023-12-06 12:19 | PM.PNCARD ---
Progress Note: A&P Assessment and Plan (1) Hypertensive urgency: Code(s): I16.0 - Hypertensive urgency Status: Acute Assessment and Plan: Amlodipine changed to nifedipine, carvedilol dose increased. Blood pressure improving (2) Acute on chronic combined systolic and diastolic CHF (congestive heart failure): Code(s): I50.43 - Acute on chronic combined systolic (congestive) and diastolic (congestive) heart failure Status: Acute Assessment and Plan: Admitted with edema and CHF. Will d/c on furosemide 40mg daily BMP in one week as outpatient (3) Hypertensive kidney disease with CKD stage III: Code(s): I12.9 - Hypertensive chronic kidney disease with stage 1 through stage 4 chronic kidney disease, or unspecified chronic kidney disease; N18.30 - Chronic kidney disease, stage 3 unspecified Status: Acute Assessment and Plan: CKD stable with diuresis (4) Hypertensive cardiomyopathy: Code(s): I11.9 - Hypertensive heart disease without heart failure; I43 - Cardiomyopathy in diseases classified elsewhere Status: Acute Assessment and Plan: EF 30-35%, hypertensive cardiomyopathy Continue carvedilol, lisinopril D/C Nifedipine and cont amlodipine 10 mg daily Increase entresto to 49-51 mg BID Add hydralazine 25 mg TID Subjective Date/time seen: 12/06/23 12:19 Interval history: no acute events Review of Systems Review of Systems: All systems reviewed & are unremarkable except as noted in HPI and below Exam Const: General: comfortable and no acute distress Other: Able to lie flat Resp: Auscultation: clear to auscultation bilaterally and lung sounds not diminished Other: No chest wall tenderness Cardio: Rate: regular rate Rhythm: regular rhythm Heart sounds: no gallops, no murmurs and no rubs Objective Data Vital Signs Vital Signs: Vital Signs - 24 hr 12/05/23 15:42 12/05/23 16:00 12/05/23 19:32 Temperature 36.6 C 36.6 C Pulse Rate 80 89 75 Respiratory Rate 14 16 Blood Pressure 184/136 H 180/135 H Pulse Oximetry 95 100 Oxygen Delivery 12/05/23 20:16 12/05/23 20:00 12/05/23 20:00 Temperature Pulse Rate 68 75 76 Respiratory Rate 16 Blood Pressure Pulse Oximetry 96 Oxygen Delivery Room Air 12/05/23 22:00 12/05/23 23:50 07/13/24 00:00 Temperature 36.4 C L Pulse Rate 70 67 66 Respiratory Rate 18 Blood Pressure 178/130 H Pulse Oximetry 100 Oxygen Delivery 12/06/23 00:00 12/06/23 04:48 12/06/23 04:00 Temperature 36.3 C L Pulse Rate 67 62 55 L Respiratory Rate 18 20 Blood Pressure 159/112 H Pulse Oximetry 100 100 Oxygen Delivery Room Air 12/06/23 05:45 12/06/23 08:04 12/06/23 08:10 Temperature 36.6 C Pulse Rate 54 L 67 Respiratory Rate 16 Blood Pressure 174/130 H 189/126 H Pulse Oximetry 100 Oxygen Delivery 12/06/23 10:00 12/06/23 11:26 Temperature 36.2 C L Pulse Rate 67 73 Respiratory Rate 16 Blood Pressure 179/136 H Pulse Oximetry 100 Oxygen Delivery Intake/Output Intake/Output: Intake & Output 12/03/23 12/04/23 12/05/23 12/06/23 23:59 23:59 23:59 23:59 Intake Total 1390 3640 Output Total 1550 350 300 Balance -160 3290 -300 Meds/Results Medications: Active Medications Generic Name Dose Route Start Last Admin Trade Name Freq PRN Reason Stop Dose Admin Acetaminophen 650 mg 12/04/23 16:28 Acetaminophen 325 Mg Tablet PO Q4H PRN Pain Rated 1-3 Hydrocodone Bitart/Acetaminophen 1 tab 12/04/23 16:29 12/05/23 20:17 Hydrocodone/Acetaminophen (*Crx) 5-325 Mg Tablet PO 1 tab Q4H PRN Administration Pain Rated 4-6 Carvedilol 25 mg 12/04/23 14:00 12/06/23 10:00 Carvedilol 25 Mg Tablet PO 25 mg Q12HR MEENA Administration Famotidine 20 mg 12/04/23 21:00 12/06/23 10:00 Famotidine 20 Mg Tablet PO 20 mg Q12HR MEENA Administration Hydralazine HCl 10 mg 07
[2023-12-06] MEDS: hydrALAZINE HCL 25 MG TABLET PO ×2 (13:17→17:16)
[2023-12-06 17:06] LABS: Glucose Point of Care 98 mg/dl (65-105)
--- NOTE | 2023-12-06 18:30 | PC.NURSE ---
This RN notified by patient that due to extreme family emergency he wanted to discharge. Placed call to Kinza Conway NP and she decided to discharge the patient. This RN received the following orders for discharge and discharge medications TORB: Follow up with cardiology, nephrology, and primary care physician within 1-2 weeks. Follow a low sodium diet. Medications: Entresto 49-51 mg PO q12h Furosemide 40 mg PO daily Procardia XL 30 mg PO daily Coreg 25 mg q12h Discontinue amlodipine and hydralazine
--- NOTE | 2023-12-07 08:22 | P.DS_ITS ---
DS: Admitting Diagnosis Discharge Date 12/06/23 Admitting Diagnosis 12/05 DS: Discharge Diagnosis Discharge Diagnosis (1) Hypertensive emergency: Code(s): I16.1 - Hypertensive emergency Status: Acute Assessment and Plan: Blood pressure is 208/162 mm hg, HR 89 with acute chronic MIHAI. Patient was asymptomatic. Home regimen of amlodipine 10 mg daily, Coreg 25 mg b.i.d., and Lasix 80 mg daily. He received labetalol 20 mg IV push x4 doses in the ED with minimal improvement. * Admitted to IMU, on telemetry * Restarting home Coreg 25 mg BID, Amlodipine 10 mg daily. Hold home Lasix and will give Lasix 40 mg IVP x1. Cardiomegaly, pleural effusion on imaging with pitting edema and crackles on exam. * Stop IVF as he is taking a diet and already hypertensive with s/s of fluid overload. * PRN hydralazine for SBP > 180 mm hg q 6 hours * Daily CMP (2) CHF (congestive heart failure): Qualifiers: Heart failure chronicity: acute Heart failure type: unspecified Qualified Code(s): I50.9 - Heart failure, unspecified Code(s): I50.9 - Heart failure, unspecified Status: Acute Assessment and Plan: HFrEF. Last ECHO from 07/2021 showed LV systolic function moderately reduced with EF estimated at 30-35% * ECHO ordered * EKG given epigastric pain * No troponin as he is not having chest pain and likely to be elevated 2/2 demand from HTN * BNP 3290 * Lasix 40 mg IVP * Low sodium diet * strict intake and output * daily weight * Medications will need to be optimized prior to discharge. Was previously on lisinopril but has not been taking. * Cardiology was consulted for assistance in management and to establish care for follow up. Started on low dose Entresto. Rec's are appreciated. (3) MIHAI (acute kidney injury): Code(s): N17.9 - Acute kidney failure, unspecified Status: Acute Assessment and Plan: Baseline Cr seems to range 1.90-2.0 * strict I&O * daily CMP * avoid nephrotoxic agents * Cr 2.8 * renal ultrasound duplex ordered, NPO at midnight * nephrology consulted, recs appreciated. Patient will need outpatient follow up. (4) Cholelithiasis with cholecystitis: Qualifiers: Cholelithiasis location: gallbladder Cholecystitis acuity: chronic Biliary obstruction: without biliary obstruction Qualified Code(s): K80.10 - Calculus of gallbladder with chronic cholecystitis without obstruction Code(s): K80.10 - Calculus of gallbladder with chronic cholecystitis without obstruction Status: Acute Assessment and Plan: Epigastric abdominal pain without nausea, vomiting * CT abdomen and pelvis shows cholelithiasis and probable mild gallbladder wall thickening * Right upper quadrant showed gallbladder sludge with gallbladder wall thickening consider acalculous cholecystitis. * General surgery was consulted. Patient's pain had improved so he was trialed on a low-fat diet. Most likely will need follow-up as an outpatient for laparoscopic cholecystectomy. If his pain returns surgery will continue to follow along and may decide on surgery while inpatient. * He was started on Zosyn. White count 7.3. Afebrile. 12/04 will stop zosyn now. * Tylenol, Godfrey, and Dilaudid for pain * Pepcid b.i.d., simethicone for bloating RESOLVED (5) Constipation: Code(s): K59.00 - Constipation, unspecified Status: Acute Assessment and Plan: Last bowel movement 4 days ago with abdominal distention * Miralax daily * Senna nightly * can try lactulose if no improv
--- NOTE | 2023-12-07 08:22 | PM.DS ---
DS: Admitting Diagnosis Discharge Date 12/06/23 Admitting Diagnosis 12/05 DS: Discharge Diagnosis Discharge Diagnosis (1) Hypertensive emergency: Code(s): I16.1 - Hypertensive emergency Status: Acute Assessment and Plan: Blood pressure is 208/162 mm hg, HR 89 with acute chronic MIHAI. Patient was asymptomatic. Home regimen of amlodipine 10 mg daily, Coreg 25 mg b.i.d., and Lasix 80 mg daily. He received labetalol 20 mg IV push x4 doses in the ED with minimal improvement. Admitted to IMU, on telemetry Restarting home Coreg 25 mg BID, Amlodipine 10 mg daily. Hold home Lasix and will give Lasix 40 mg IVP x1. Cardiomegaly, pleural effusion on imaging with pitting edema and crackles on exam. Stop IVF as he is taking a diet and already hypertensive with s/s of fluid overload. PRN hydralazine for SBP > 180 mm hg q 6 hours Daily CMP (2) CHF (congestive heart failure): Qualifiers: Heart failure chronicity: acute Heart failure type: unspecified Qualified Code(s): I50.9 - Heart failure, unspecified Code(s): I50.9 - Heart failure, unspecified Status: Acute Assessment and Plan: HFrEF. Last ECHO from 07/2021 showed LV systolic function moderately reduced with EF estimated at 30-35% ECHO ordered EKG given epigastric pain No troponin as he is not having chest pain and likely to be elevated 2/2 demand from HTN BNP 3290 Lasix 40 mg IVP Low sodium diet strict intake and output daily weight Medications will need to be optimized prior to discharge. Was previously on lisinopril but has not been taking. Cardiology was consulted for assistance in management and to establish care for follow up. Started on low dose Entresto. Rec's are appreciated. (3) MIHAI (acute kidney injury): Code(s): N17.9 - Acute kidney failure, unspecified Status: Acute Assessment and Plan: Baseline Cr seems to range 1.90-2.0 strict I&O daily CMP avoid nephrotoxic agents Cr 2.8 renal ultrasound duplex ordered, NPO at midnight nephrology consulted, recs appreciated. Patient will need outpatient follow up. (4) Cholelithiasis with cholecystitis: Qualifiers: Cholelithiasis location: gallbladder Cholecystitis acuity: chronic Biliary obstruction: without biliary obstruction Qualified Code(s): K80.10 - Calculus of gallbladder with chronic cholecystitis without obstruction Code(s): K80.10 - Calculus of gallbladder with chronic cholecystitis without obstruction Status: Acute Assessment and Plan: Epigastric abdominal pain without nausea, vomiting CT abdomen and pelvis shows cholelithiasis and probable mild gallbladder wall thickening Right upper quadrant showed gallbladder sludge with gallbladder wall thickening consider acalculous cholecystitis. General surgery was consulted. Patient's pain had improved so he was trialed on a low-fat diet. Most likely will need follow-up as an outpatient for laparoscopic cholecystectomy. If his pain returns surgery will continue to follow along and may decide on surgery while inpatient. He was started on Zosyn. White count 7.3. Afebrile. 12/04 will stop zosyn now. Tylenol, Faith, and Dilaudid for pain Pepcid b.i.d., simethicone for bloating RESOLVED (5) Constipation: Code(s): K59.00 - Constipation, unspecified Status: Acute Assessment and Plan: Last bowel movement 4 days ago with abdominal distention Miralax daily Senna nightly can try lactulose if no improvement (6) Tobacco use: Code(s): Z72.0 - Tobacco use Status: Acute Assessment and Plan: Encourage cessation Currently not ready to quit Nicotine patch as needed Plan Feeding: Low-sodium, low-fat Analgesia: Tylenol, Faith, and Dilaudid Thromboembolic prophylaxis: SCDs Ulcer prophylaxis: Pepcid Glycemic control: Reports diet controlled diabetic diet Bowel regimen: miralax, senna Li
[2023-12-07 13:08] LABS: Protein, Total 5.9 g/dL (6.1-8.1)
--- NOTE | 2023-12-08 11:47 | IVDEFINITY ---
Prior to administration of IV Definity the patient was educated on the risks and benefits of the imaging enhancing agent including potential adverse side effects. The patient verbalized understanding. Allergies were verified. No exclusion criteria were identified and at least one of the following inclusion criteria were met: 1) physician request, 2) patient technically difficult to image (per the [place] [employer]ocardi[employer] guidelines of two or more segments not discernable within the apical view), or 3) questionable left ventricular function. ?
[2023-12-08 12:14] LABS: Creatinine, Random Urine 83 mg/dL (20-320); Total Protein/Creatinine Ratio 1096 mg/g creat (25-148)
[2023-12-08 16:29] LABS: Albumin 2.5 g/dL (3.8-4.8); Alpha 1 Globulin 0.4 g/dL (0.2-0.3); Alpha 2 Globulin 0.6 g/dL (0.5-0.9); Beta 1 Globulin 0.4 g/dL (0.4-0.6); Gamma Globulin 1.6 g/dL (0.8-1.7)
== END 2023-12-06 18:40 | disposition home or self-care (01) ==
LOC: ANHED 09:03 → ANHIMU 13:12
PROVIDERS: Emergency Medicine; Internal Medicine Nephrology; Nurse Practitioner Acute Care; Admitting Provider Hospitalist; Emergency Provider Emergency Medicine; PCP Family Medicine; Visit Provider Internal Medicine
DX: K80.10 Calculus of gallbladder with chronic cholecystitis without obstruction (principal); N17.9 Acute kidney failure, unspecified; I16.0 Hypertensive urgency; E87.6 Hypokalemia; I13.0 Hypertensive heart and chronic kidney disease with heart failure and stage 1 through stage 4 chronic kidney disease, or unspecified chronic kidney disease; I50.43 Acute on chronic combined systolic (congestive) and diastolic (congestive) heart failure; N18.30 Chronic kidney disease, stage 3 unspecified; I43 Cardiomyopathy in diseases classified elsewhere; F17.210 Nicotine dependence, cigarettes, uncomplicated; K59.00 Constipation, unspecified; F12.90 Cannabis use, unspecified, uncomplicated; Z79.899 Other long term (current) drug therapy
CPT/HCPCS: 36415; 74176; 76705; 76775; 80053; 81001; 81050; 82570; 82948; 83036; 83690; 83735; 83880; 84155; 84156; 84165; 84166; 84443; 85025; 85999; 93005; 93976; 96361; 96365; 96366; 96375; 96376; 99285; A9270; C8929; G0378; J1940; J2270; J2405; J2543; J3480; J7030; J7040; Q9957

== ENCOUNTER 2024-06-29 16:09 | Inpatient (IN) | payer SELFPAY ==
--- NOTE | ~2024-06-29 | XR_ITS ---
CHEST RADIOGRAPH, PA AND LATERAL CLINICAL HISTORY: shortness of breath . COMPARISON: 09/20/2021 TECHNIQUE: PA and lateral views of the chest. FINDINGS The cardiomediastinal silhouette is enlarged, unchanged. Increased opacification within the right upper lobe for which an early infiltrate is suspected. The remainder of the lungs are clear. IMPRESSION: Early right upper lobe infiltrate. 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 TUBE WINDER
--- NOTE | ~2024-06-29 | US_ITS ---
EXAMINATION: US renal BI DATE: 06/30/2024 12:24 INDICATION: Acute on chronic kidney disease. TECHNIQUE: Multiple ultrasound grayscale images of the kidneys were obtained. COMPARISON: CT abdomen and pelvis 12/04/2023 FINDINGS: The right kidney measures 11.5 x 6.0 x 4.4 cm. The left kidney measures 10.2 x 4.1 x 4.1 cm. The kidn eys demonstrate increased parenchymal echogenicity, consistent with nonspecific nephropathy. There is no hydronephrosis. The bladder is normal. There is a small volume of ascites. IMPRESSION: 1. Echogenic kidneys, consistent with nonspecific nephropathy. 2. Small volume of ascites. 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 VIORAL HEALTH TECHNICIAN
--- NOTE | 2024-06-29 16:12 | ECG_ITS ---
Test Date: 2024-06-29 16:38:13 Measurements Intervals [place] Rate: 104 P: 29 [place]: 181 QRS: 259 QRSD: 118 T: 44 QT: 440 QTc: 580 Interpretive Statements SINUS TACHYCARDIA RIGHT AXIS DEVIATION LEFT ATRIAL ENLARGEMENT INTRAVENTRICULAR CONDUCTION DELAY ANTEROSEPTAL INFARCT, AGE INDETERMINATE BORDERLINE T WAVE ABNORMALITY- HIGH LATERAL LEADS BASELINE ARTIFACT- I, II, AVR, AVL, AVF, V1, V3 ABNORMAL ECG Compared to ECG 12/04/2023 16:23:45 HEART RATE HAS INCREASED POSSIBLE ISCHEMIA NO LONGER PRESENT Electronically Signed On 06-29-2024 18:42:08 FORMAL SERVICE WAITER by Cholo Phipps D.O.
--- OUTSIDE RECORDS SUMMARY | 2024-06-29 16:12 | XMS_ITS | Clinical Summary ---
Author Organization [facility] [employer] Address [address] [place] [address] Care Team Providers Care Binitrotoluene Operator Name Role Phone Ran Arias MD Primary Care Provider [phone] Source Comments [facility] [employer],non-owned Affiliates and Associated Physician Practices is amultiple site organization consisting of ambulatory clinics and hospital sitesin [place], [place] and [place]. This disclosure is being madepursuant to the Care Everywhere program and may not contain all information available regarding this patient. Last updated 18.[facility] [employer] Allergies No known active allergies Medications * Be aware that medications may not be up to date on this document. Alwaysverify current medications with the patient. Medication Sig Dispensed Refills Start Date End Date Status oxyCODONE, immediate release, (ROXICODONE) 5 MG tablet Take 1 (one) tablet by mouth every 6 hours as needed for Pain 28 tablet 12/12/2020 Active Additional Information Patient not taking.Reported on 01/04/2021 folic acid (FOLVITE) 1 MG tablet Take 1 (one) tablet by mouth once daily 30 tablet 12/13/2020 Active Additional Information Patient not taking.Reported on 12/28/2020 methocarbamol (ROBAXIN) 750 MG tablet Take 1 (one) tablet by mouth every 6 hours as needed for Muscle Spasms 28 tablet 12/12/2020 Active Additional Information Patient not taking.Reported on 12/28/2020 thiamine (VITAMIN B-1) 100 MG tablet Take 1 (one) tablet by mouth once daily 30 tablet 12/13/2020 Active Additional Information Patient not taking.Reported on 12/28/2020 docusate sodium (COLACE) 100 MG capsule Take 1 (one) capsule by mouth 2 times daily 60 capsule 2 12/12/2020 Active Additional Information Patient not taking.Reported on 12/28/2020 hydroCHLOROthiazide (HYDRODIURIL) 25 MG tabletIndications:E ssential hypertension Take 1 (one) tablet by mouth once daily 90 tablet 4 12/28/2020 Active Additional Information Patient not taking.Reported on 01/04/2021 amLODIPine (NORVASC) 10 MG tabletIndications:E ssential hypertension Take 1 (one) tablet by mouth once daily 90 tablet 1 12/28/2020 Active Active Problems Problem Noted Date Diagnosed Date Hypertension 12/12/2020 SDH (subdural hematoma) 12/12/2020 Scalp laceration 12/12/2020 Trauma 12/10/2020 Alcohol intake above recommended sensible limits 12/10/2020 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 Immunizations Name Administration Dates Next Due TDAP (7yrs+) 12/10/2020 Social History Tobacco Use Types Packs/Day Years Used Date Smoking Tobacco: Some Days Cigarettes Smokeless Tobacco: Never Alcohol Use Standard Drinks/Week Comments Not Currently 0 (1 standard drink = 0.6 oz pur e alcohol) Sex and Gender Information Value Date Recorded Sex Assigned at Not on file Gender Identity Not on file Sexual Orientation Not on file Last Filed Vital Signs Vital Sign Reading Time Taken Comments Blood Pressure 209/149 01/04/2021 11:36 AM CDT Pulse 100 01/04/2021 11:36 AM CDT Temperature 36.8 ??C (98.3 ??F) 12/28/2020 10:07 AM C DT Respiratory Rate 18 12/28/2020 10:07 AM CDT Oxygen Saturation 99% 01/04/2021 11:36 AM CDT Inhaled Oxygen Concentration - - Weight 102.1 kg (225 lb) 01/04/2021 11:36 AM CDT Height 180.3 cm (5' 11 ) 01/04/2021 11:36 AM CDT Body Mass Index 31.38 01/04/2021 11:36 AM CDT Plan of Treatment Health Maintenance Due Date Last Done Comments LIPID TESTING 1984 HIV SCREENING 1999 HEPATITIS C SCREENING 04/09/2002 HEPATITIS B VACCINE (1 of 3 - 19+ 3-dose series) 2003 PNEUMOCOCCAL VACCINE (1 of 2 - PCV) 2003 COVID-19 VACCINE (1 - 2023-2 5 season) 2024 INFLUENZA VACCINE (#1) 2024 DEPRESSION SCREENING 05/26/2024 DTAP/TDAP/TD VACCINES (2 - T d or Tdap) 12/10/2030 12/10/2020 ZOSTER VACCINE (1 of 2) 2034 HIB VACCINE Aged Out No longer eligi ble based on patient's age to complete this topic HPV VACCINE Aged Out No longer eligi ble based on patient's age to complete this topic MENINGOCOCCAL (Group B) VACCINE Aged Out No longer eligible based on patient's age to complete this topic MENINGOCOCCAL VACCINE Aged Out No franklin artie eligible based on patient's age to complete this topic Advance Directives * Full Code (Latest Code Status on File) Date Activated Date Inactivated Comments 12/10/2020 8:46 AM 12/12/2020 8:46 PM Care Teams Binitrotoluene Operator Relationship Specialty Start Date End Date Ran Arias MD [address] [place] [address] PCP - General Internal Medicine 12/28/20
--- OUTSIDE RECORDS SUMMARY | 2024-06-29 16:12 | XMS_ITS | Referral Summary ---
Author Organization [facility] [employer] Address [address] [place] [address] Care Team Providers Care Meter Reader Inspector Name Role Phone Ran Arias MD Primary Care Provider Source Comments [facility],non-owned Affiliates and Associated Physician Practices is amultiple site organization consisting of ambulatory clinics and hospital sitesin [place], [place], [place] and [place]. This disclosure is being madepursuant to the Care Everywhere program and may not contain all information available regarding this patient. Last updated 18.[facility] [employer] Allergies No known active allergies Medications * [...] Mass Index 31.38 01/04/2021 11:36 AM CDT Functional Status Functional Status Response Date of Assess ment Is person deaf or have serious hearing difficult y? No 12/10/2020 Is person blind or have serious difficulty seein g? No 12/10/2020 Does person have serious dif ficulty walking/climbing stairs? No 12/10/2020 Does person have difficulty dressing/bathing? No 12/10/2020 Does person have difficulty doing errands alone? No 12/10/2020 Cognitive Status Response Date of Assessm ent Does person have difficulty concentrating/remembering/making decisions? No 12/10/2020 Plan of Treatment Not on file Advance Directives * Full Code (Latest Code Status on File) Date Activated Date Inactivated Comments 12/10/2020 8:46 AM 12/12/2020 8:46 PM Care Teams Meter Reader Inspector Relationship Specialty Start Date End Date Ran Arias MD [address] OF [facility] [place] [address] PCP - General Internal Medicine 12/28/20
--- OUTSIDE RECORDS SUMMARY | 2024-06-29 16:13 | XMS_ITS | Referral Summary ---
Author Organization [facility] [address] Address [address] [place] [address] Care Team Providers Care Store Promoter Name Role Phone Vicente Dickens MD Primary Care Provider [phone] Arley Orona MD Unavailable [phone] Encounters Date Type Department Care Team Description 05/27/2024 TCC Subsequent Outreach [facility] [address] [place] [phone] Colin Christian, RN 05/26/2024 SHOP/CHAP Initial Eligibility Review [facility] [address] [place] [id number] Aby Paul RN 05/22/2024 1:44 AM MACHINE ASSEMBLER SUPERVISOR - 05/25/2024 6:33 PM MACHINE ASSEMBLER SUPERVISOR Hospital Encounter [facility] [address] [place] [address] New Patel MD Freilich, Michelle Amanda, MD Patel, Kieran, MD Anasarca (Primary Dx); Acute on chronic combined systolic and diastolic congestive heart failure (CMS/HCC) (HCC); Hypertensive crisis Discharge Disposition: Left Against Medical Advice 05/17/2024 TCC Subsequent Outreach [facility] [address] [place] [address] [phone] Colin Christian, RN 05/10/2024 Telephone [facility] Primary Care [address] [place] [phone] Vicente Dickens MD KAITLYN Questions 05/10/2024 Telephone [facility] Nephrology at [place] [phone] [phone] Marcus House MD 05/10/2024 TCC Subsequent Outreach [facility] [address] [place] [phone] Colin Christian RN 05/02/2024 3:59 AM MACHINE ASSEMBLER SUPERVISOR - 05/09/2024 2:34 PM MACHINE ASSEMBLER SUPERVISOR Hospital Encounter [place] [phone] Med Surg [facility] [place] [address] Alfred Thompson DO [place], MD Teja Sims, MD Juan M Marks, Brayan Davies MD Acute on chronic congestive heart failure, unspecified heart failure type (HCC) (Primary Dx); Hypertensive emergency; Chronic systolic heart failure (CMS/HCC) (HCC); MIHAI (acute kidney injury) (HCC) [N17.9]; Stage 3a chronic kidney disease (HCC) [N18.31] Discharge Disposition: Discharge to home or self care 05/03/2024 TCC Initial Eligibility Review [facility] [address] [place] [phone] Susie Witt NP 04/28/2024 TCC Subsequent Outreach [facility] [address] [place] [phone] Colin Christian RN 04/19/2024 TCC Subsequent Outreach [facility] [address] [place] [phone] Colin Christian RN 04/16/2024 TCC Initial Eligibility Review [facility] [address] [place] [phone] Susie Witt NP 04/14/2024 9:14 AM MACHINE ASSEMBLER SUPERVISOR - 04/16/2024 3:00 PM MACHINE ASSEMBLER SUPERVISOR Hospital Encounter [address] [phone] Simon Vera MD [facility] [place], MD Harjit Zhou, Elias Still MD Shortness of breath (Primary Dx); Acute on chronic systolic CHF (congestive heart failure) ([facility]) ([facility]); Stage 3b chronic kidney disease ([facility]); Chronic systolic heart failure (CMS/[facility]) ([facility]) Discharge Disposition: Discharge to home or self care from Last 3 Months Allergies No known active allergies Medications dapagliflozin propanediol (FARXIGA) 10 mg tabletIndication s:Heart Failure Take 1 tablet (10 mg total) by mouth daily 30 tablet 05/26/2024 Active hydrALAZINE (APRESOLINE) 100 mg tabletIndication s:hypertension Take 1 tablet (100 mg total) by mouth 3 (three) times a day 90 tablet 2 05/25/2024 08/24/19 25 Active amLODIPine (NORVASC) 10 mg tablet Take 1 tablet (10 mg total) by mouth daily 30 tablet 11 05/26/2024 05/26/19 26 Active carvediloL (COREG) 25 mg tablet Take 1 tablet (25 mg total) by mouth 2 (two) times a day with meals 60 tablet 11 05/25/2024 05/25/20 25 Active losartan (COZAAR) 50 mg tablet Take 1 tablet (50 mg total) by mouth 2 (two) times a day 60 tablet 11 05/25/2024 05/25/20 25 Active furosemide (LASIX) 80 mg tablet Take 1 tablet (80 mg total) by mouth 2 (two) times a day 180 tablet 4 05/25/2024 05/25/20 25 Active isosorbide dinitrate (ISORDIL) 20 mg tablet Take 2 tablets (40 mg total) by mouth 3 (three) times a day 180 tablet 11 05/25/2024 05/25/20 25 Active Active Problems Problem Noted Date Diagnosed Date Anasarca 05/22/2024 MIHAI (acute kidney injury) 05/05/2024 Stage 3a chronic kidney disease 05/05/2024 Hypertensive emergency 05/04/2024 Acute on chronic congestive heart failure, unspecified heart failure type 05/02/2024 Abdominal pain 11/21/2023 Bilateral lower extremity edema 01/09/2022 Assessment & Plan (01/09/2022 1:05 PM CDT): Worsening of edema. He has increased edema approximately 1+ pitting today. Weight is up markedly from last visit. We will have him increase his Lasix to 40 mg b.i.d.. This may be due to his congestive failure. He denies any increased shortness of breath. Lungs are clear at this time. Shortness of breath 12/19/2021 Assessment & Plan (12/19/2021 1:44 PM CDT): The differential diagnosis is wide and of uncertain prognosis. This could be due to an exacerbation of congestive failure. We should check BNP. This could be due to COPD. It could be due to asthma. It could be due to anxiety or stress. PHQ-9 score today is 2. It could be due to lung disease. Chest x-ray last done 2019 normal. Lower abdominal pain 12/19/2021 Assessment & Plan (12/19/2021 2:08 PM CDT): This sounds more like musculoskeletal pain or hernia as opposed to gastrointestinal pathology. No hernia detected today. Slightly tender in the area of pain lower abdomen right side Mild anemia 12/19/2021 Assessment & Plan (12/19/2021 1:53 PM CDT): Needs repeat CBC with iron studies and methylmalonic acid Chronic systolic heart failure (CMS/HCC) 022 Assessment & Plan (01/09/2022 1:02 PM CDT): Refer to Cardiology. Increase Lasix to 40 mg b.i.d. re-evaluate few weeks Assessment & Plan (12/19/2021 1:51 PM CDT): Check BNP and BMP. Continue Lasix at same dosage. Well controlled. Pre-diabetes 12/17/2021 Assessment & Plan (12/19/2021 1:45 PM CDT): Last blood sugar 106. Patient was encouraged to decrease the sugar and starch in diet. This means avoiding juices and sugar sweetened drinks. Patient should limit REFINED carbohydrates such as bread, rice, cereal pasta, and mashed potatoes. Regular exercise for more than 30 minutes t most days was encouraged to further improve blood sugar. The main fruit to avoid are grapes , pineapple, and bananas. Encouraged to maintain vegetables. Will need A1c Hypertensive heart disease w ith chronic systolic congestive heart failure (CMS/HCC) 12/17/2021 Assessment & Plan (01/09/2022 1:02 PM CDT): Continue Diovan. Increase nifedipine to 90 mg daily. Improved but needs better control. Assessment & Plan (12/19/2021 2:07 PM CDT): Will need additional medication for blood pressure. It appears from reviewing the records that he is taking Coreg 25 mg b.i.d. and Procardia XL 60 mg daily. We will add Diovan 320 mg daily. Will refer to Cardiology. He never did get appointment with the [employer] league baseball [employer] ER brigitte Mckeon referred him to Immunizations Name Administration Dates Next Due Influenza, Trivalent, Preservative Free, Intramu scular 04/16/2024 Tdap 12/10/2020 Social History Tobacco Use Types Packs/Day Years Used Date Smoking Tobacco: Former Cigarettes 0.3 20 2 002 - 05/2021 Smokeless Tobacco: Never Tobacco Cessation:Counseling Given: Not Answered Alcohol Use Standard Drinks/Week Comments Never 0 (1 standard drink = 0.6 oz pur e alcohol) [facility] Utilities Answer Date Recorded In the past 12 months has [employer], [employer], oil, or water [employer] threatened to shut off services in your home? No 05/25/2024 Social Connection and Isolat ion Panel [NHANES] Answer Date Recorded In a typical week, how many times do you talk on the phone with family, friends, or neighbors? More than three times a week 05/25/2024 How often do you get togethe r with friends or relatives? More than three times a week 05/25/2024 How often do you attend chur or taoism services? More than 4 times per year 05/25/2024 Do you belong to any clubs o r organizations such as alevism groups, unions, fraternal or athletic groups, or school groups? No 05/25/2024 How often do you attend meet ings of the clubs or organizations you belong to? Never 05/25/2024 Are you , , di vorced, , never , or living with a partner? Never 05/25/2024 AUDIT-C Answer Date Recorded Q1: How often do you have a drink containing alc ohol? 2-4 times a month 05/02/2024 Q2: How many drinks containi ng alcohol do you have on a typical day when you are drinking? 1 or 2 05/02/2024 Q3: How often do you have si x or more drinks on one occasion? Never 05/02/2024 Overall Financial Resource Strain (CARDIA) Answe r Date Recorded How hard is it for you to pa y for the very basics like food, housing, medical care, and heating? Not hard at all 05/25/2024 PHQ-2 Answer Date Recorded PHQ-2 Total Score 0 05/25/2024 Hunger Vital Sign Answer Date Recorded Within the past 12 months, y ou worried that your food would run out before you got the money to buy more. Never true 05/25/20 24 Within the past 12 months, t he food you bought just didn't last and you didn't have money to get more. Never true 05/25/2024 PRAPARE - Transportation Answer Date Re corded In the past 12 months, has l ack of transportation kept you from medical appointments or from getting medications? No 04/27 In the past 12 months, has l ack of transportation kept you from meetings, work, or from getting things needed for daily living? No 05/25/2024 Housing Stability Vital Sign Answer Erick e Recorded In the last 12 months, was t here a time when you were not able to pay the mortgage or rent on time? No 05/25/2024 In the past 12 months, how m any times have you moved where you were living? 0 05/25/2024 At any time in the past 12 m [facility], were you homeless or living in a [facility] (including now)? No 05/25/2024 Personal Safety Answer Date Recorded Have you ever been in or are you currently in a harmful physical or emotional relationship or is someone making you feel afraid or unsafe? Denies 05/21/2024 Sex and Gender Information Value Date Recorded Sex Assigned at Not on file Legal Sex Male 5:49 PM MACHINE ASSEMBLER SUPERVISOR Gender Identity Not on file Sexual Orientation Not on file Last Filed Vital Signs Vital Sign Reading Time Taken Comments Blood Pressure 179/132 05/25/2024 3:25 PM MACHINE ASSEMBLER SUPERVISOR Pulse 71 05/25/2024 3:25 PM MACHINE ASSEMBLER SUPERVISOR Temperature 36.6 ??C (97.8 ??F) 05/25/2024 3:25 PM CS T Respiratory Rate 20 05/25/2024 3:25 PM MACHINE ASSEMBLER SUPERVISOR Oxygen Saturation 100% 05/25/2024 3:25 PM MACHINE ASSEMBLER SUPERVISOR Inhaled Oxygen Concentration - - Weight 95.6 kg (210 lb 12.8 oz) 05/25/2024 4:29 AM MACHINE ASSEMBLER SUPERVISOR Height 182.9 cm (6') 05/22/2024 5:33 AM MACHINE ASSEMBLER SUPERVISOR Body Mass Index 28.59 05/22/2024 5:33 AM MACHINE ASSEMBLER SUPERVISOR Plan of Treatment Not on file Procedures Procedure Name Priority Date/Time Associated Diagnosis Comments EGFR Routine 05/24/2024 8:10 PM MACHINE ASSEMBLER SUPERVISOR CBC WITHOUT DIFFERENTIAL Routine 05/24/2024 8:10 PM MACHINE ASSEMBLER SUPERVISOR MAGNESIUM Routine 05/24/2024 8:10 PM MACHINE ASSEMBLER SUPERVISOR BASIC METABOLIC PANEL Routine 05/24/2024 8:10 PM MACHINE ASSEMBLER SUPERVISOR EGFR Routine 05/23/2024 10:53 PM MACHINE ASSEMBLER SUPERVISOR CBC WITHOUT DIFFERENTIAL Routine 05/23/2024 10:53 PM MACHINE ASSEMBLER SUPERVISOR MAGNESIUM Routine 05/23/2024 10:53 PM MACHINE ASSEMBLER SUPERVISOR BASIC METABOLIC PANEL Routine 05/23/2024 10:53 PM MACHINE ASSEMBLER SUPERVISOR EGFR Timed 05/23/2024 9:00 AM MACHINE ASSEMBLER SUPERVISOR PROTEIN, URINE, 24 HOUR RESULT Timed 05/23/2024 9:00 AM MACHINE ASSEMBLER SUPERVISOR VOLUME AND PERIOD, URINE, 24 HOUR Timed 05/23/2024 9:00 AM MACHINE ASSEMBLER SUPERVISOR CREATININE CLEARANCE, URINE, 24 HOUR RESULT Timed 05/23/2024 9:00 AM MACHINE ASSEMBLER SUPERVISOR CREATININE Timed 05/23/2024 9:00 AM MACHINE ASSEMBLER SUPERVISOR CREATININE CLEARANCE, URINE, 24 HOUR Timed 05/23/2024 9:00 AM MACHINE ASSEMBLER SUPERVISOR EGFR Routine 05/22/2024 8:21 PM MACHINE ASSEMBLER SUPERVISOR FOLATE Routine 05/22/2024 8:21 PM MACHINE ASSEMBLER SUPERVISOR VITAMIN B12 Routine 05/22/2024 8:21 PM MACHINE ASSEMBLER SUPERVISOR FERRITIN Routine 05/22/2024 8:21 PM MACHINE ASSEMBLER SUPERVISOR CBC WITHOUT DIFFERENTIAL Routine 05/22/2024 8:21 PM MACHINE ASSEMBLER SUPERVISOR MAGNESIUM Routine 05/22/2024 8:21 PM MACHINE ASSEMBLER SUPERVISOR BASIC METABOLIC PANEL Routine 05/22/2024 8:21 PM MACHINE ASSEMBLER SUPERVISOR URINALYSIS, MICROSCOPIC ONLY Routine 05/22/2024 7:49 AM MACHINE ASSEMBLER SUPERVISOR ALBUMIN CREATININE RATIO, URINE Routine 05/22/2024 7:49 AM MACHINE ASSEMBLER SUPERVISOR SODIUM, URINE, RANDOM Timed 05/22/2024 7:49 AM MACHINE ASSEMBLER SUPERVISOR URINALYSIS AND REFLEX TO MICROSCOPIC AND CULTURE Routine 05/22/2024 7:49 AM MACHINE ASSEMBLER SUPERVISOR EGFR STAT 05/22/2024 6:14 AM MACHINE ASSEMBLER SUPERVISOR CREATININE STAT 05/22/2024 6:14 AM MACHINE ASSEMBLER SUPERVISOR FERRITIN STAT 05/22/2024 6:14 AM MACHINE ASSEMBLER SUPERVISOR LIPID PANEL STAT 05/22/2024 6:14 AM MACHINE ASSEMBLER SUPERVISOR IRON PROFILE W/ IBC STAT 05/22/2024 6 :14 AM MACHINE ASSEMBLER SUPERVISOR RPR STAT 05/22/2024 6:14 AM MACHINE ASSEMBLER SUPERVISOR HIV 1/2 ANTIBODY PLUS P24 ANTIGEN STAT 05/22/2024 6:14 AM MACHINE ASSEMBLER SUPERVISOR TROPONIN I HIGH-SENSITIVITY 4-HOUR Timed 05/22/2024 2:15 AM MACHINE ASSEMBLER SUPERVISOR UT CRITICAL CARE ILL/INJURED PATIENT INIT 30-74 MIN Routine 05/22/2024 1:57 AM MACHINE ASSEMBLER SUPERVISOR EGFR STAT 05/21/2024 10:13 PM MACHINE ASSEMBLER SUPERVISOR DIFFERENTIAL AUTO STAT 05/21/2024 10: 13 PM MACHINE ASSEMBLER SUPERVISOR PRO B-TYPE NATRIURETIC PEPTIDE STAT 05/21/2024 10:13 PM MACHINE ASSEMBLER SUPERVISOR TROPONIN I HIGH-SENSITIVITY SERIES (BASELINE, 2HR, 4HR, 6HR) STAT 05/21/2024 10:13 PM MACHINE ASSEMBLER SUPERVISOR CBC WITH AUTO DIFFERENTIAL STAT 05/21/2024 10:13 PM MACHINE ASSEMBLER SUPERVISOR COMPREHENSIVE METABOLIC PANEL STAT 05/21/2024 10:13 PM MACHINE ASSEMBLER SUPERVISOR XR CHEST PA LATERAL 2 VIEWS ED 05/21/2024 8:12 PM MACHINE ASSEMBLER SUPERVISOR ECG 12-LEAD STAT 05/21/2024 8:11 PM MACHINE ASSEMBLER SUPERVISOR EGFR Routine 05/09/2024 5:25 AM MACHINE ASSEMBLER SUPERVISOR DIFFERENTIAL AUTO Routine 05/09/2024 5:2 5 AM MACHINE ASSEMBLER SUPERVISOR BASIC METABOLIC PANEL Routine 05/09/2024 5:25 AM MACHINE ASSEMBLER SUPERVISOR CBC WITH AUTO DIFFERENTIAL Routine 05/09/2024 5:25 AM MACHINE ASSEMBLER SUPERVISOR MAGNESIUM Routine 05/09/2024 5:25 AM MACHINE ASSEMBLER SUPERVISOR PHOSPHORUS Routine 05/09/2024 5:25 AM MACHINE ASSEMBLER SUPERVISOR EGFR Routine 05/08/2024 5:20 AM MACHINE ASSEMBLER SUPERVISOR DIFFERENTIAL AUTO Routine 05/08/2024 5:2 0 AM MACHINE ASSEMBLER SUPERVISOR BASIC METABOLIC PANEL Routine 05/08/2024 5:20 AM MACHINE ASSEMBLER SUPERVISOR CBC WITH AUTO DIFFERENTIAL Routine 05/08/2024 5:20 AM MACHINE ASSEMBLER SUPERVISOR MAGNESIUM Routine 05/08/2024 5:20 AM MACHINE ASSEMBLER SUPERVISOR PHOSPHORUS Routine 05/08/2024 5:20 AM MACHINE ASSEMBLER SUPERVISOR EGFR Routine 05/07/2024 3:12 AM MACHINE ASSEMBLER SUPERVISOR DIFFERENTIAL AUTO Routine 05/07/2024 3:1 2 AM MACHINE ASSEMBLER SUPERVISOR BASIC METABOLIC PANEL Routine 05/07/2024 3:12 AM MACHINE ASSEMBLER SUPERVISOR CBC WITH AUTO DIFFERENTIAL Routine 05/07/2024 3:12 AM MACHINE ASSEMBLER SUPERVISOR MAGNESIUM Routine 05/07/2024 3:12 AM MACHINE ASSEMBLER SUPERVISOR PHOSPHORUS Routine 05/07/2024 3:12 AM MACHINE ASSEMBLER SUPERVISOR EGFR Routine 05/06/2024 3:28 AM MACHINE ASSEMBLER SUPERVISOR DIFFERENTIAL AUTO Routine 05/06/2024 3:2 8 AM MACHINE ASSEMBLER SUPERVISOR VITAMIN D 25 HYDROXY Routine 05/06/2024 3:28 AM MACHINE ASSEMBLER SUPERVISOR PTH Routine 05/06/2024 3:28 AM MACHINE ASSEMBLER SUPERVISOR BASIC METABOLIC PANEL Routine 05/06/2024 3:28 AM MACHINE ASSEMBLER SUPERVISOR CBC WITH AUTO DIFFERENTIAL Routine 05/06/2024 3:28 AM MACHINE ASSEMBLER SUPERVISOR MAGNESIUM Routine 05/06/2024 3:28 AM MACHINE ASSEMBLER SUPERVISOR PHOSPHORUS Routine 05/06/2024 3:28 AM MACHINE ASSEMBLER SUPERVISOR TRANSTHORACIC ECHO (TTE) COMPLETE W DOPPLER/CF W CONTRAST Routine 05/05/2024 10:40 AM MACHINE ASSEMBLER SUPERVISOR EGFR Routine 05/05/2024 1:45 AM MACHINE ASSEMBLER SUPERVISOR MAGNESIUM Routine 05/05/2024 1:45 AM MACHINE ASSEMBLER SUPERVISOR PHOSPHORUS Routine 05/05/2024 1:45 AM MACHINE ASSEMBLER SUPERVISOR DIFFERENTIAL AUTO Routine 05/05/2024 1:4 5 AM MACHINE ASSEMBLER SUPERVISOR BASIC METABOLIC PANEL Routine 05/05/2024 1:45 AM MACHINE ASSEMBLER SUPERVISOR CBC WITH AUTO DIFFERENTIAL Routine 05/05/2024 1:45 AM MACHINE ASSEMBLER SUPERVISOR VOLUME AND PERIOD, URINE, 24 HOUR Timed 05/04/2024 9:41 AM MACHINE ASSEMBLER SUPERVISOR METANEPHRINES, URINE, 24 HOUR RESULT Timed 05/04/2024 8:45 AM MACHINE ASSEMBLER SUPERVISOR METANEPHRINES, URINE, 24 HOUR Timed 05/04/2024 8:45 AM MACHINE ASSEMBLER SUPERVISOR EGFR Routine 05/04/2024 3:45 AM MACHINE ASSEMBLER SUPERVISOR BASIC METABOLIC PANEL Routine 05/04/2024 3:45 AM MACHINE ASSEMBLER SUPERVISOR DIFFERENTIAL AUTO Routine 05/04/2024 3:4 5 AM MACHINE ASSEMBLER SUPERVISOR CBC WITH AUTO DIFFERENTIAL Routine 05/04/2024 3:45 AM MACHINE ASSEMBLER SUPERVISOR MAGNESIUM Routine 05/04/2024 3:45 AM MACHINE ASSEMBLER SUPERVISOR PHOSPHORUS Routine 05/04/2024 3:45 AM MACHINE ASSEMBLER SUPERVISOR US RENAL DOPPLER IP Routine 05/03/2024 9:40 AM MACHINE ASSEMBLER SUPERVISOR US KIDNEY COMPLETE IP Routine 05/03/2024 7: 27 AM MACHINE ASSEMBLER SUPERVISOR EGFR Routine 05/03/2024 5:28 AM MACHINE ASSEMBLER SUPERVISOR DIFFERENTIAL AUTO Routine 05/03/2024 5:2 8 AM MACHINE ASSEMBLER SUPERVISOR PHOSPHORUS Routine 05/03/2024 5:28 AM MACHINE ASSEMBLER SUPERVISOR MAGNESIUM Routine 05/03/2024 5:28 AM MACHINE ASSEMBLER SUPERVISOR CBC WITH AUTO DIFFERENTIAL Routine 05/03/2024 5:28 AM MACHINE ASSEMBLER SUPERVISOR COMPREHENSIVE METABOLIC PANEL Routine 05/03/2024 5:28 AM MACHINE ASSEMBLER SUPERVISOR PROTEIN / CREATININE RATIO, URINE, RANDOM Routine 05/02/2024 5:41 PM MACHINE ASSEMBLER SUPERVISOR EGFR Routine 05/02/2024 4:21 PM MACHINE ASSEMBLER SUPERVISOR ERYTHROCYTE SEDIMENTATION RATE Routine 05/02/2024 4:21 PM MACHINE ASSEMBLER SUPERVISOR CRP (ACUTE PHASE) Routine 05/02/2024 4:2 1 PM MACHINE ASSEMBLER SUPERVISOR D-DIMER, QUANTITATIVE Routine 05/02/2024 4:21 PM MACHINE ASSEMBLER SUPERVISOR RENIN ACTIVITY Routine 05/02/2024 4:21 PM MACHINE ASSEMBLER SUPERVISOR ALDOSTERONE Routine 05/02/2024 4:21 PM MACHINE ASSEMBLER SUPERVISOR CORTISOL Timed 05/02/2024 4:21 PM MACHINE ASSEMBLER SUPERVISOR METANEPHRINES, FRACTIONATED FREE, BLOOD Routine 05/02/2024 4:21 PM MACHINE ASSEMBLER SUPERVISOR MAGNESIUM Routine 05/02/2024 4:21 PM MACHINE ASSEMBLER SUPERVISOR BASIC METABOLIC PANEL Routine 05/02/2024 4:21 PM MACHINE ASSEMBLER SUPERVISOR HIV 1/2 ANTIBODY PLUS P24 ANTIGEN Routine 05/02/2024 4:21 PM MACHINE ASSEMBLER SUPERVISOR TROPONIN T HIGH-SENSITIVITY 6-HOUR Timed 05/02/2024 10:58 AM MACHINE ASSEMBLER SUPERVISOR CRITICAL CARE Routine 05/02/2024 10:19 AM MACHINE ASSEMBLER SUPERVISOR Acute on chronic congestive heart failure, unspecified heart failure type (HCC) Chronic systolic heart failure (CMS/HCC) (HCC) TROPONIN T HIGH-SENSITIVITY 4-HR Timed 05/02/2024 8:13 AM MACHINE ASSEMBLER SUPERVISOR FOLATE Routine 05/02/2024 7:59 AM MACHINE ASSEMBLER SUPERVISOR VITAMIN B12 Routine 05/02/2024 7:59 AM MACHINE ASSEMBLER SUPERVISOR URINALYSIS, MICROSCOPIC ONLY Routine 05/02/2024 7:51 AM MACHINE ASSEMBLER SUPERVISOR DRUGS OF ABUSE SCREEN, URINE WITH REFLEX CONFIRMATION Routine 05/02/2024 7:51 AM MACHINE ASSEMBLER SUPERVISOR URINALYSIS AND REFLEX TO MICROSCOPIC AND CULTURE Routine 05/02/2024 7:51 AM MACHINE ASSEMBLER SUPERVISOR CRP (ACUTE PHASE) Routine 05/02/2024 6:2 5 AM MACHINE ASSEMBLER SUPERVISOR THYROID FUNCTION CASCADE Routine 05/02/2024 6:25 AM MACHINE ASSEMBLER SUPERVISOR IRON PROFILE W/ IBC Routine 05/02/2024 6 :25 AM MACHINE ASSEMBLER SUPERVISOR FERRITIN Routine 05/02/2024 6:25 AM MACHINE ASSEMBLER SUPERVISOR TROPONIN T HIGH-SENSITIVITY 2-HOUR Timed 05/02/2024 6:25 AM MACHINE ASSEMBLER SUPERVISOR RETICULOCYTES Routine 05/02/2024 4:41 AM MACHINE ASSEMBLER SUPERVISOR EGFR STAT 05/02/2024 4:41 AM MACHINE ASSEMBLER SUPERVISOR DIFFERENTIAL AUTO STAT 05/02/2024 4:4 1 AM MACHINE ASSEMBLER SUPERVISOR PRO B-TYPE NATRIURETIC PEPTIDE STAT 05/02/2024 4:41 AM MACHINE ASSEMBLER SUPERVISOR TROPONIN T HIGH-SENSITIVITY SERIES (BASELINE, 2HR, 4HR, 6HR) STAT 05/02/2024 4:41 AM MACHINE ASSEMBLER SUPERVISOR COMPREHENSIVE METABOLIC PANEL STAT 05/02/2024 4:41 AM MACHINE ASSEMBLER SUPERVISOR CBC WITH AUTO DIFFERENTIAL STAT 05/02/2024 4:41 AM MACHINE ASSEMBLER SUPERVISOR XR CHEST 1 VIEW ED 05/02/2024 4:29 AM MACHINE ASSEMBLER SUPERVISOR UT CRITICAL CARE ILL/INJURED PATIENT INIT 30-74 MIN Routine 05/02/2024 4:23 AM MACHINE ASSEMBLER SUPERVISOR ECG 12-LEAD STAT 05/02/2024 4:22 AM MACHINE ASSEMBLER SUPERVISOR LIPID PANEL STAT 04/16/2024 8:00 AM MACHINE ASSEMBLER SUPERVISOR MANUAL DIFFERENTIAL STAT 04/16/2024 8 :00 AM MACHINE ASSEMBLER SUPERVISOR EGFR STAT 04/16/2024 8:00 AM MACHINE ASSEMBLER SUPERVISOR DIFFERENTIAL AUTO STAT 04/16/2024 8:0 0 AM MACHINE ASSEMBLER SUPERVISOR BASIC METABOLIC PANEL STAT 04/16/2024 8:00 AM MACHINE ASSEMBLER SUPERVISOR HEPATIC FUNCTION PANEL STAT 04/16/2024 8:00 AM MACHINE ASSEMBLER SUPERVISOR CBC WITH AUTO DIFFERENTIAL STAT 04/16/2024 8:00 AM MACHINE ASSEMBLER SUPERVISOR MAGNESIUM STAT 04/16/2024 8:00 AM MACHINE ASSEMBLER SUPERVISOR TRANSTHORACIC ECHO (TTE) COMPLETE W DOPPLER/CF WO CONTRAST Routine 04/15/2024 3:37 PM MACHINE ASSEMBLER SUPERVISOR EGFR Timed 04/15/2024 12:45 PM MACHINE ASSEMBLER SUPERVISOR MAGNESIUM Timed 04/15/2024 12:45 PM MACHINE ASSEMBLER SUPERVISOR BASIC METABOLIC PANEL Timed 04/15/2024 12:45 PM MACHINE ASSEMBLER SUPERVISOR MAGNESIUM Routine 04/15/2024 2:50 AM MACHINE ASSEMBLER SUPERVISOR EGFR Routine 04/15/2024 2:50 AM MACHINE ASSEMBLER SUPERVISOR DIFFERENTIAL AUTO Routine 04/15/2024 2:5 0 AM MACHINE ASSEMBLER SUPERVISOR CBC WITH AUTO DIFFERENTIAL Routine 04/15/2024 2:50 AM MACHINE ASSEMBLER SUPERVISOR COMPREHENSIVE METABOLIC PANEL Routine 04/15/2024 2:50 AM MACHINE ASSEMBLER SUPERVISOR POCT GLUCOSE DEVICE Routine 04/14/2024 4 :29 PM MACHINE ASSEMBLER SUPERVISOR TROPONIN T HIGH-SENSITIVITY 6-HOUR Timed 04/14/2024 3:49 PM MACHINE ASSEMBLER SUPERVISOR NM PULMONARY PERFUSION IMAGING ED 04/14/2024 2:28 PM MACHINE ASSEMBLER SUPERVISOR TROPONIN T HIGH-SENSITIVITY 2-HOUR Timed 04/14/2024 11:32 AM MACHINE ASSEMBLER SUPERVISOR EGFR STAT 04/14/2024 9:23 AM MACHINE ASSEMBLER SUPERVISOR DIFFERENTIAL AUTO STAT 04/14/2024 9:2 3 AM MACHINE ASSEMBLER SUPERVISOR PRO B-TYPE NATRIURETIC PEPTIDE STAT 04/14/2024 9:23 AM MACHINE ASSEMBLER SUPERVISOR TROPONIN T HIGH-SENSITIVITY SERIES (BASELINE, 2HR, 4HR, 6HR) STAT 04/14/2024 9:23 AM MACHINE ASSEMBLER SUPERVISOR CBC WITH AUTO DIFFERENTIAL STAT 04/14/2024 9:23 AM MACHINE ASSEMBLER SUPERVISOR COMPREHENSIVE METABOLIC PANEL STAT 04/14/2024 9:23 AM MACHINE ASSEMBLER SUPERVISOR XR CHEST 1 VIEW ED 04/14/2024 9:20 AM MACHINE ASSEMBLER SUPERVISOR INFLUENZA A/B, RSV, AND COVID-19 PCR STAT 04/14/2024 9:10 AM MACHINE ASSEMBLER SUPERVISOR ECG 12-LEAD STAT 04/14/2024 8:58 AM MACHINE ASSEMBLER SUPERVISOR from Last 3 Months Results * (ABNORMAL) eGFR (05/24/2024 8:10 PM MACHINE ASSEMBLER SUPERVISOR) [facility] eGFR 24(L) >=60 mL/min/1. 73 m2 Comment: Interpretive Data Reference Interval Normal ?>/= 90 mL/min/1.73m2 Mildly decreased* ? 60 - 89 mL/min/1.73m2 Mildly to moderately decreased ?45 - 59 mL/min/1.73m2 Moderately to severely decreased ??30 - 44 mL/min/1.73m2 Severely decreased ?15 - 29 mL/min/1.73m2 Kidney Failure ?< 15 ??mL/min/1.73m2 *Relative to young adult level Estimated glomerular filtration rate is determined by the 2020 CKD-EPI equation recommended by the National [employer]ney [employer] (A Unifying Approach to GFR Estimation: Recommendations of the NKF-ASK Task Force on Reassessing the Inclusion of Race in Diagnosing Kidney Disease, JASN 202). The CKD-EPI equation should not be used for patients with unstable renal function and has not been validated in children and those over 70. Current interpretive data was last reviewed 2021. 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 05/24/2024 8:50 PM MACHINE ASSEMBLER SUPERVISOR us Ying Reagan MD LAB BLOOD ORDERABLES Final Result Performing Organization Address City/State/[facility] Co de Phone Number [facility] Department [place] [address] * (ABNORMAL) CBC without differential (05/24/2024 8:10 PM MACHINE ASSEMBLER SUPERVISOR) WBC 4.9 3.8 - 9.9 K/cumm Hgb 11.2(L) 13.0 - 17.5 g/dL [facility] Hct 38.1(L) 38.9 - 50.3 % [facility] Plt 351 150 - 400 K/cumm [facility] MPV 9.5 9.1 - 12.3 fL [facility] RBC 4.39 4.30 - 5.80 M/cumm [facility] MCV 86.8 81.3 - 96.4 fL [facility] MCH 25.5(L) 27.1 - 33.3 pg [facility] MCHC 29.4(L) 32.3 - 35.7 g/dL [facility] RDW CV 20.4(H) 11.1 - 14.9 % [facility] RDW SD 64.2(H) 35.7 - 48.1 fL [facility] NRBC abs 0.00 0.00 - 0.01 K/cumm [facility] 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 05/24/2024 8:49 PM MACHINE ASSEMBLER SUPERVISOR Ying Reagan MD LAB BLOOD ORDERABLES Final Result Performing Organization Address City/[facility] Co de Phone Number [facility] [place] [address] * Magnesium (05/24/2024 8:10 PM MACHINE ASSEMBLER SUPERVISOR) Pathologist [facility] Magnesium 2.2 1.4 - 2.5 mg/dL 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 05/24/2024 8:50 PM MACHINE ASSEMBLER SUPERVISOR Ying Reagan MD LAB BLOOD ORDERABLES Final Result ELVI [facility] Department [place] [address] * (ABNORMAL) Basic metabolic panel (05/24/2024 8:10 PM MACHINE ASSEMBLER SUPERVISOR) Sodium 141 135 - 145 mmol/L Potassium, pl 3.9 3.3 - 4.9 mmol/L [facility] Chloride 103 97 - 110 mmol/L [facility] CO2 26 22 - 32 mmol/L [facility] Anion gap 12 2 - 15 mmol/L [facility] BUN 31(H) 6 - 25 mg/dL [facility] Creatinine 3.26(H) 0.80 - 1.30 mg/dL [facility] Glucose 107 70 - 199 mg/dL [facility] Comment: Interpretive Data Fasting glucose >/= 126 mg/dl is diagnostic for diabetes. ?? Fasting is defined as no caloric intake for at least 8 hours. Fasting glucose between 100 mg/dl to 125 mg/dl is diagnostic of prediabetes. In a patient with classic symptoms of hyperglycemia or hyperglycemic crisis, a random glucose >/= 200 mg/dl is diagnostic for diabetes. In the absence of unequivocal hyperglycemia, results should be confirmed by repeat testing. The classification and Diagnosis of Diabetes Diabetes Care 202; 46: S19-S40. Current interpretive data was last revised 2022. Calcium 8.7 8.5 - 10.3 mg/dL [facility] 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 05/24/2024 8:50 PM MACHINE ASSEMBLER SUPERVISOR us Ying Reagan MD LAB BLOOD ORDERABLES Final Result ELVI [facility] Department [place] [address] * (ABNORMAL) eGFR (05/23/2024 10:53 PM MACHINE ASSEMBLER SUPERVISOR) eGFR 24(L) >=60 mL/min/1. 73 m2 Comment: Interpretive Data Reference Interval Normal ?>/= 90 mL/min/1.73m2 Mildly decreased* ? 60 - 89 mL/min/1.73m2 Mildly to moderately decreased ?45 - 59 mL/min/1.73m2 Moderately to severely decreased ??30 - 44 mL/min/1.73m2 Severely decreased ?15 - 29 mL/min/1.73m2 Kidney Failure ?< 15 ??mL/min/1.73m2 *Relative to young adult level Estimated glomerular filtration rate is determined by the 2020 CKD-EPI equation recommended by the National Kidney Foundation (A Unifying Approach to GFR Estimation: Recommendations of the NKF-ASK Task Force on Reassessing the Inclusion of Race in Diagnosing Kidney Disease, JASN 2020). The CKD-EPI equation should not be used for patients with unstable renal function and has not been validated in children and those over 70. Current interpretive data was last reviewed 2021. Blood 05/23/2024 10:5 3 PM MACHINE ASSEMBLER SUPERVISOR 05/23/2024 11:36 PM MACHINE ASSEMBLER SUPERVISOR us Ying Reagan MD LAB BLOOD ORDERABLES Final Result [facility] Department [place] [address] * (ABNORMAL) CBC without differential (05/23/2024 10:53 PM MACHINE ASSEMBLER SUPERVISOR) WBC 5.1 3.8 - 9.9 K/cumm Hgb 10.8(L) 13.0 - 17.5 g/dL [facility] Hct 35.7(L) 38.9 - 50.3 % [facility] Plt 245 150 - 400 K/cumm [facility] MPV 9.8 9.1 - 12.3 fL [facility] RBC 4.16(L) 4.30 - 5.80 M/cumm [facility] MCV 85.8 81.3 - 96.4 fL [facility] MCH 26.0(L) 27.1 - 33.3 pg [facility] MCHC 30.3(L) 32.3 - 35.7 g/dL [facility] RDW CV 21.1(H) 11.1 - 14.9 % [facility] RDW SD 65.1(H) 35.7 - 48.1 fL [facility] NRBC abs 0.00 0.00 - 0.01 K/cumm [facility] Blood 05/23/2024 10:5 3 PM MACHINE ASSEMBLER SUPERVISOR 05/23/2024 11:25 PM MACHINE ASSEMBLER SUPERVISOR us Ying Reagan MD LAB BLOOD ORDERABLES Final Result Performing Organization Address [facility] de Phone Number [facility] Department [place] [address] * Magnesium (05/23/2024 10:53 PM MACHINE ASSEMBLER SUPERVISOR) [facility] Magnesium 1.9 1.4 - 2.5 mg/dL Blood 05/23/2024 10:5 3 PM MACHINE ASSEMBLER SUPERVISOR 05/23/2024 11:25 PM MACHINE ASSEMBLER SUPERVISOR us Ying Reagan MD LAB BLOOD ORDERABLES Final Result Performing Organization Address [facility] de Phone Number [facility] Department [place] [address] * (ABNORMAL) Basic metabolic panel (05/23/2024 10:53 PM MACHINE ASSEMBLER SUPERVISOR) [facility] Sodium 139 135 - 145 mmol/L Potassium, pl 4.1 3.3 - 4.9 mmol/L [facility] Chloride 104 97 - 110 mmol/L [facility] CO2 22 22 - 32 mmol/L [facility] Anion gap 13 2 - 15 mmol/L [facility] BUN 34(H) 6 - 25 mg/dL [facility] Creatinine 3.17(H) 0.80 - 1.30 mg/dL [facility] Glucose 83 70 - 199 mg/dL [facility] Comment: Interpretive Data Fasting glucose >/= 126 mg/dl is diagnostic for diabetes. ?? Fasting is defined as no caloric intake for at least 8 hours. Fasting glucose between 100 mg/dl to 125 mg/dl is diagnostic of prediabetes. In a patient with classic symptoms of hyperglycemia or hyperglycemic crisis, a random glucose >/= 200 mg/dl is diagnostic for diabetes. In the absence of unequivocal hyperglycemia, results should be confirmed by repeat testing. The classification and Diagnosis of Diabetes Diabetes Care 2021; 46: S19-S40. Current interpretive data was last revised 2022. Calcium 8.2(L) 8.5 - 10.3 mg/dL [facility] Blood 05/23/2024 10:5 3 PM MACHINE ASSEMBLER SUPERVISOR 05/23/2024 11:25 PM MACHINE ASSEMBLER SUPERVISOR us Ying Reagan MD LAB BLOOD ORDERABLES Final Result Performing Organization Address City/[facility]/ZIP Co de Phone Number [facility] Department [place] [address] * (ABNORMAL) Protein, urine, 24 hour (05/23/2024 9:00 AM MACHINE ASSEMBLER SUPERVISOR) [facility] Protein, 24 hr, ur 2,694(H) 0 - 150 mg/24H Urine/Blood 05/23/2024 9:00 AM MACHINE ASSEMBLER SUPERVISOR 05/23/2024 3:26 PM MACHINE ASSEMBLER SUPERVISOR us Momo Catherine MD LAB URINE ORDERABLES Final Resul t Performing Organization Address City/[facility]/ZIP Co de Phone Number [facility] [place] [address] * (ABNORMAL) eGFR (05/23/2024 9:00 AM MACHINE ASSEMBLER SUPERVISOR) Pathologist [facility] eGFR 23(L) >=60 mL/min/1. 73 m2 Comment: Interpretive Data Reference Interval Normal ?>/= 90 mL/min/1.73m2 Mildly decreased* ? 60 - 89 mL/min/1.73m2 Mildly to moderately decreased ?45 - 59 mL/min/1.73m2 Moderately to severely decreased ??30 - 44 mL/min/1.73m2 Severely decreased ?15 - 29 mL/min/1.73m2 Kidney Failure ?< 15 ??mL/min/1.73m2 *Relative to young adult level Estimated glomerular filtration rate is determined by the 2020 CKD-EPI equation recommended by the National Kidney Foundation (A Unifying Approach to GFR Estimation: Recommendations of the NKF-ASK Task Force on Reassessing the Inclusion of Race in Diagnosing Kidney Disease, JASN 2020). The CKD-EPI equation should not be used for patients with unstable renal function and has not been validated in children and those over 70. Current interpretive data was last reviewed 2021. Urine/Blood 05/23/2024 9:00 AM MACHINE ASSEMBLER SUPERVISOR 05/23/2024 3:26 PM MACHINE ASSEMBLER SUPERVISOR us Momo Catherine MD LAB BLOOD ORDERABLES Final Resul t [facility] Department [place] [address] * Volume and period, urine, 24 hour (05/23/2024 9:00 AM MACHINE ASSEMBLER SUPERVISOR) Volume, ur 5,600 mL Period, Urine Collection 1,440 min [facility]VI [facility] Urine/Blood 05/23/2024 9:00 AM MACHINE ASSEMBLER SUPERVISOR 05/23/2024 3:26 PM MACHINE ASSEMBLER SUPERVISOR us Ying Reagan MD LAB URINE ORDERABLES Final Result [facility] [place] [address] * (ABNORMAL) Creatinine clearance, urine, 24 hour (05/23/2024 9:00 AM MACHINE ASSEMBLER SUPERVISOR) Pathologist [facility] Creatinine Clearance 40(L) 60 - 130 mL/min Creatinine, 24 hr, ur 1.9 0.8 - 2.2 g/24H [facility] Urine/Blood 05/23/2024 9:00 AM MACHINE ASSEMBLER SUPERVISOR 05/23/2024 3:26 PM MACHINE ASSEMBLER SUPERVISOR us Ying Reagan MD LAB URINE ORDERABLES Final Result Performing Organization Address City/[facility]/[place] [address] * (ABNORMAL) Creatinine (05/23/2024 9:00 AM MACHINE ASSEMBLER SUPERVISOR) [facility] Creatinine 3.31(H) 0.80 - 1.30 mg/dL Urine/Blood 05/23/2024 9:00 AM MACHINE ASSEMBLER SUPERVISOR 05/23/2024 3:26 PM MACHINE ASSEMBLER SUPERVISOR us Momo Catherine MD LAB BLOOD ORDERABLES Final Resul t Performing Organization Address [facility] Co de Phone Number [facility] [place] [address] * (ABNORMAL) eGFR (05/22/2024 8:21 PM MACHINE ASSEMBLER SUPERVISOR) Pathologist [facility] eGFR 22(L) >=60 mL/min/1. 73 m2 Comment: Interpretive Data Reference Interval Normal ?>/= 90 mL/min/1.73m2 Mildly decreased* ? 60 - 89 mL/min/1.73m2 Mildly to moderately decreased ?45 - 59 mL/min/1.73m2 Moderately to severely decreased ??30 - 44 mL/min/1.73m2 Severely decreased ?15 - 29 mL/min/1.73m2 Kidney Failure ?< 15 ??mL/min/1.73m2 *Relative to young adult level Estimated glomerular filtration rate is determined by the 2020 CKD-EPI equation recommended by the National Kidney Foundation (A Unifying Approach to GFR Estimation: Recommendations of the NKF-ASK Task Force on Reassessing the Inclusion of Race in Diagnosing Kidney Disease, JASN 2020). The CKD-EPI equation should not be used for patients with unstable renal function and has not been validated in children and those over 70. Current interpretive data was last reviewed 2021. Blood 05/22/2024 8:21 PM MACHINE ASSEMBLER SUPERVISOR 05/22/2024 9:02 PM MACHINE ASSEMBLER SUPERVISOR us Ying Reagan MD LAB BLOOD ORDERABLES Final Result [facility] Department [place] [address] * (ABNORMAL) CBC without differential (05/22/2024 8:21 PM MACHINE ASSEMBLER SUPERVISOR) WBC 5.7 3.8 - 9.9 K/cumm Hgb 10.0(L) 13.0 - 17.5 g/dL [facility] Hct 33.0(L) 38.9 - 50.3 % [facility] Plt 342 150 - 400 K/cumm [facility] MPV 10.1 9.1 - 12.3 fL [facility] RBC 3.90(L) 4.30 - 5.80 M/cumm [facility] MCV 84.6 81.3 - 96.4 fL [facility] MCH 25.6(L) 27.1 - 33.3 pg [facility] MCHC 30.3(L) 32.3 - 35.7 g/dL [facility] RDW CV 20.9(H) 11.1 - 14.9 % [facility] RDW SD 62.9(H) 35.7 - 48.1 fL [facility] NRBC abs 0.00 0.00 - 0.01 K/cumm [facility] Blood 05/22/2024 8:21 PM MACHINE ASSEMBLER SUPERVISOR 05/22/2024 9:06 PM MACHINE ASSEMBLER SUPERVISOR Ying Reagan MD LAB BLOOD ORDERABLES Final Result Performing Organization Address City/[facility]/ZIP Co de Phone Number [facility] [place] [address] * Magnesium (05/22/2024 8:21 PM MACHINE ASSEMBLER SUPERVISOR) Pathologist [facility] Magnesium 1.9 1.4 - 2.5 mg/dL Blood 05/22/2024 8:21 PM MACHINE ASSEMBLER SUPERVISOR 05/22/2024 9:02 PM MACHINE ASSEMBLER SUPERVISOR us Ying Reagan MD LAB BLOOD ORDERABLES Final Result Performing Organization Address [facility] Co de Phone Number [facility] [place] [address] * Folate (05/22/2024 8:21 PM MACHINE ASSEMBLER SUPERVISOR) Folic acid 11.2 >=5.0 ng/mL Blood 05/22/2024 8:21 PM MACHINE ASSEMBLER SUPERVISOR 05/22/2024 9:02 PM MACHINE ASSEMBLER SUPERVISOR Ying Reagan MD LAB BLOOD ORDERABLES Final Result Performing Organization Address [facility] Co de Phone Number [facility] [place] [place] [address] * Ferritin (05/22/2024 8:21 PM MACHINE ASSEMBLER SUPERVISOR) Ferritin 228 30 - 400 ng/mL Blood 05/22/2024 8:21 PM MACHINE ASSEMBLER SUPERVISOR 05/22/2024 9:02 PM MACHINE ASSEMBLER SUPERVISOR Ying Reagan MD LAB BLOOD ORDERABLES Final Result [facility] Department [place] [address] * Vitamin B12 (05/22/2024 8:21 PM MACHINE ASSEMBLER SUPERVISOR) Pathologist [facility] Vitamin B12 467 230 - 1,250 pg/mL Blood 05/22/2024 8:21 PM MACHINE ASSEMBLER SUPERVISOR 05/22/2024 9:02 PM MACHINE ASSEMBLER SUPERVISOR Ying Reagan MD LAB BLOOD ORDERABLES Final Result Performing Organization Address [facility] de Phone Number [facility] Department [place] [address] * (ABNORMAL) Basic metabolic panel (05/22/2024 8:21 PM MACHINE ASSEMBLER SUPERVISOR) [facility] Sodium 141 135 - 145 mmol/L Potassium, pl 4.0 3.3 - 4.9 mmol/L [facility] Chloride 104 97 - 110 mmol/L [facility] CO2 26 22 - 32 mmol/L [facility] Anion gap 11 2 - 15 mmol/L [facility] BUN 36(H) 6 - 25 mg/dL [facility] Creatinine 3.45(H) 0.80 - 1.30 mg/dL [facility] Glucose 105 70 - 199 mg/dL [facility] Comment: Interpretive Data Fasting glucose >/= 126 mg/dl is diagnostic for diabetes. ?? Fasting is defined as no caloric intake for at least 8 hours. Fasting glucose between 100 mg/dl to 125 mg/dl is diagnostic of prediabetes. In a patient with classic symptoms of hyperglycemia or hyperglycemic crisis, a random glucose >/= 200 mg/dl is diagnostic for diabetes. In the absence of unequivocal hyperglycemia, results should be confirmed by repeat testing. The classification and Diagnosis of Diabetes Diabetes Care 2021; 46: S19-S40. Current interpretive data was last revised 2022. Calcium 8.4(L) 8.5 - 10.3 mg/dL [facility] Blood 05/22/2024 8:21 PM MACHINE ASSEMBLER SUPERVISOR 05/22/2024 9:02 PM MACHINE ASSEMBLER SUPERVISOR us Ying Reagan MD LAB BLOOD ORDERABLES Final Result [facility] Department [place] [address] * (ABNORMAL) Urinalysis reflex to microscopic and culture Urine (05/22/2024 7:49 AM MACHINE ASSEMBLER SUPERVISOR) Color, ur Straw Yellow Clarity, ur Clear Clear [facility] Specific gravity, ur 1.006 1.003 - 1.030 [facility] pH, urine 6.5 [facility] Comment: Interpretive Data ? Urine pH is affected by diet, medications, systemic acid-base disturbances, and renal tubular function. ??pH may affect urinary stone formation. ??For example, urine pH below 6.0 may help reduce the tendency for calcium phosphate stones and pH greater than 6.0 may reduce the tendency for uric acid stone formation. Source: [facility] [employer] Current Interpretive Data was last revised on 2017 Protein, ur ql 1+(A) Negative [facility] Glucose, ur ql Negative Negative [facility] Ketones, ur Negative Negative [facility] Bilirubin, ur Negative Negative [facility] Blood, ur Negative Negative [facility] Urobilinogen, ur <2.0 <2.0 mg/dL [facility] Nitrite, ur Negative Negative [facility] Leukocyte esterase, ur Negative Negative [facility] UA reflex comment Reflex to microscopic UA will be performed. [facility] Urine 05/22/2024 7:49 AM MACHINE ASSEMBLER SUPERVISOR 05/22/2024 8:58 AM MACHINE ASSEMBLER SUPERVISOR us Ying Reagan MD LAB MICROBIOLOGY - G ENERAL ORDERABLES Final Result [facility] Department [place] [address] * (ABNORMAL) Albumin Creatinine Ratio, Urine (05/22/2024 7:49 AM MACHINE ASSEMBLER SUPERVISOR) Albumin Ur 192.0 mg/L Comment: Interpretive Data No reference range established. Current interpretive data was last revised 2018. Creatinine Ur 21.5 mg/dL [facility] Comment: Interpretive Data No reference range established. Current interpretive data was last revised 2018. Albumin Creatinine Ratio, Ur 893(H) 1 - 29 mg/g [facility] Urine 05/22/2024 7:49 AM MACHINE ASSEMBLER SUPERVISOR 05/22/2024 9:00 AM MACHINE ASSEMBLER SUPERVISOR Ying Reagan MD LAB URINE ORDERABLES Final Result Performing Organization Address City/[facility] Co de Phone Number [facility] Department [place] [address] * Sodium, urine, random (05/22/2024 7:49 AM MACHINE ASSEMBLER SUPERVISOR) Sodium, ur 115 mmol/L Comment: Interpretive Data No reference range established. Current interpretive data was last revised 2018. Urine 05/22/2024 7:49 AM MACHINE ASSEMBLER SUPERVISOR 05/22/2024 8:58 AM MACHINE ASSEMBLER SUPERVISOR Ying Reagan MD LAB URINE ORDERABLES Final Result Performing Organization Address City/[facility]/ZIP Co de Phone Number [facility] [place] [address] * Urinalysis, microscopic only (05/22/2024 7:49 AM MACHINE ASSEMBLER SUPERVISOR) WBC, ur 0-5 0 - 5 /HPF RBC, ur 0-2 0 - 2 /HPF [facility] Culture Reflex Comment Reflex conditions for urine culture (WBC >10) not met. [facility] Urine 05/22/2024 7:49 AM MACHINE ASSEMBLER SUPERVISOR 05/22/2024 8:58 AM MACHINE ASSEMBLER SUPERVISOR us Ying Reagan MD LAB URINE ORDERABLES Final Result Performing Organization Address [facility] Co de Phone Number ELVI Cota [facility] Department [place] [address] * (ABNORMAL) eGFR (05/22/2024 6:14 AM MACHINE ASSEMBLER SUPERVISOR) eGFR 23(L) >=60 mL/min/1. 73 m2 Comment: Interpretive Data Reference Interval Normal ?>/= 90 mL/min/1.73m2 Mildly decreased* ? 60 - 89 mL/min/1.73m2 Mildly to moderately decreased ?45 - 59 mL/min/1.73m2 Moderately to severely decreased ??30 - 44 mL/min/1.73m2 Severely decreased ?15 - 29 mL/min/1.73m2 Kidney Failure ?< 15 ??mL/min/1.73m2 *Relative to young adult level Estimated glomerular filtration rate is determined by the 2020 CKD-EPI equation recommended by the National Kidney Foundation (A Unifying Approach to GFR Estimation: Recommendations of the NKF-ASK Task Force on Reassessing the Inclusion of Race in Diagnosing Kidney Disease, JASN 2020). The CKD-EPI equation should not be used for patients with unstable renal function and has not been validated in children and those over 70. Current interpretive data was last reviewed 2021. Blood 05/22/2024 6:14 AM MACHINE ASSEMBLER SUPERVISOR 05/22/2024 7:55 AM MACHINE ASSEMBLER SUPERVISOR us Ying Reagan MD LAB BLOOD ORDERABLES Final Result Performing Organization Address [facility] Co de Phone Number [facility] Department [place] [address] * (ABNORMAL) Iron profile w/ IBC (05/22/2024 6:14 AM MACHINE ASSEMBLER SUPERVISOR) Pathologist [facility] Iron 38(L) 50 - 150 mcg/dL TIBC 169(L) 250 - 400 mcg/dL [facility] Transferrin saturation 22 20 - 50 % [facility] Blood 05/22/2024 6:14 AM MACHINE ASSEMBLER SUPERVISOR 05/22/2024 6:45 AM MACHINE ASSEMBLER SUPERVISOR Sincere Isidro MD LAB BLOOD ORDERABLES Final Result [facility] [place] [address] * HIV 1/2 Antibody plus p24 Antigen Blood (05/22/2024 6:14 AM MACHINE ASSEMBLER SUPERVISOR) Pathologist [facility] HIV 1/2 ab + p24 ag Nonreactive Nonreactive Comment:Nonreactive for HIV- 1 antigen and HIV-1/HIV-2 antibodies. No laboratory evidence of HIV infection. If acute HIV infection is suspected, consider testing for HIV-1 RNA. Current interpretive data was last revised on 22. Blood 05/22/2024 6:14 AM MACHINE ASSEMBLER SUPERVISOR 05/22/2024 6:44 AM MACHINE ASSEMBLER SUPERVISOR Sincere Isidro MD LAB MICROBIOLOGY - GENERAL ORDERABLES Final Result Performing Organization Address City/[facility]/ZIP Co de Phone Number [facility] [place] [address] * RPR Blood (05/22/2024 6:14 AM MACHINE ASSEMBLER SUPERVISOR) Pathologist [facility] RPR Nonreactive Nonreactive Blood 05/22/2024 6:14 AM MACHINE ASSEMBLER SUPERVISOR 05/22/2024 6:44 AM MACHINE ASSEMBLER SUPERVISOR Sincere Isidro MD LAB MICROBIOLOGY - GENERAL ORDERABLES Final Result [facility] [place] [address] * Ferritin (05/22/2024 6:14 AM MACHINE ASSEMBLER SUPERVISOR) Ferritin 239 30 - 400 ng/mL Blood 05/22/2024 6:14 AM MACHINE ASSEMBLER SUPERVISOR 05/22/2024 6:45 AM MACHINE ASSEMBLER SUPERVISOR Ying Reagan MD LAB BLOOD ORDERABLES Final Result Performing Organization Address City/[facility] Co de Phone Number [place] [address] * (ABNORMAL) Creatinine (05/22/2024 6:14 AM MACHINE ASSEMBLER SUPERVISOR) Creatinine 3.31(H) 0.80 - 1.30 mg/dL Blood 05/22/2024 6:14 AM MACHINE ASSEMBLER SUPERVISOR 05/22/2024 7:55 AM MACHINE ASSEMBLER SUPERVISOR us Ying Reagan MD LAB BLOOD ORDERABLES Final Result Performing Organization Address City/[facility] de Phone Number [facility] [place] [address] * Lipid panel (05/22/2024 6:14 AM MACHINE ASSEMBLER SUPERVISOR) Cholesterol 122 30 - 199 mg/dL Comment: Interpretive Data Ages < or = 19 years ??Acceptable: ? <170 mg/dL ??Borderline high: ??170-199 mg/dL ??High: ? >or= 200 mg/dL Ages > or = 20 years ??Desirable: ?<200 mg/dL ??Borderline high: ??200-239 mg/dL ??High: ? >or= 240 mg/dL Literature References: 1. Expert Panel on Integrated Guidelines for Cardiovascular Health and Risk Reduction in Children and Adolescents. Pediatrics 2011;128:S213 2. NCEP Expert Panel. Circulation 2004;110:227 Current Interpretive Data was last revised on 2018. Triglycerides 46 <=149 mg/dL [facility] Comment: Interpretive Data Ages < or = 9 years ??Acceptable: ? <75 mg/dL ??Borderline high: ??75-99 mg/dL ??High: ? >or= 100 mg/dL Ages 10 to 20 years ??Acceptable: ? <90 mg/dL ??Borderline high: ??90-129 mg/dL ??High: ? >or= 130 mg/dL Ages > or = 20 years ??Desirable: ?<150 mg/dL ??Borderline high: ??150-199 mg/dL ??High: ? 200-499 mg/dL ?Very high: ?? >or= 499 mg/dL Literature References: 1. Expert Panel on Integrated Guidelines for Cardiovascular Health and Risk Reduction in Children and Adolescents. Pediatrics 2011;128:S213 2. NCEP Expert Panel. Circulation 2004;110:227 Current Interpretive Data was last revised on 2018. HDL 54 >=40 mg/dL [facility] Comment: Interpretive Data Ages < or = 19 years ??Acceptable: ? >45 mg/dL ??Borderline low: ?? 40-45 mg/dL ??Low: ? <40 mg/dL Ages > or = 20 years ??Desirable: ?>or= 60 mg/dL ??Low: ? <40 mg/dL Literature References: 1. Expert Panel on Integrated Guidelines for Cardiovascular Health and Risk Reduction in Children and Adolescents. Pediatrics 2011;128:S213 2. NCEP Expert Panel. Circulation 2004;110:227 Current Interpretive Data was last revised on 2018. LDL, calculated 57 <=129 mg/dL [facility] Comment: Interpretive Data Ages < or = 19 years ??Acceptable: ? <110 mg/dL ??Borderline high: ??110-129 mg/dL ??High: ?>or= 130 mg/dL Ages > or = 20 years ??Optimal: ? <100 mg/dL ??Near optimal: ?100-129 mg/dL ??Borderline high: ?? 130-159 mg/dL ??High: ?>160 mg/dL Calculated using the Arnaldo LDL-C estimating equation. This equation was implemented on 2024. Prior to this date LDL-C was estimated using the Friedewald equation. Literature References: 1. Expert Panel on Integrated Guidelines for Cardiovascular Health and Risk Reduction in Children and Adolescents. Pediatrics 2011;128:S213 2. NCEP Expert Panel. Circulation 2004;110:227 3. Arnaldo Alcala et al. EMY Cardiol. 2020 September 23;5(5):540-548. doi: 10.1001/[email or web address] Current Interpretive Data was last revised on 2024. Non-HDL Cholesterol 68 mg/dL [facility] Comment: Interpretive Data Ages < or = 19 years ??Acceptable: ?<120 mg/dL ??Borderline high: ??120-144 mg/dL ??High: ?>145 mg/dL Ages > or = 20 years ??When triglycerides are >200 mg/dL, Non-HDL cholesterol is a secondary target of ? therapy with treatment goals that are 30 mg/dL greater than the LDL cholesterol target. ? Literature References: 1. Expert Panel on Integrated Guidelines for Cardiovascular Health and Risk Reduction in Children and Adolescents. Pediatrics 2011;128:S213 2. NCEP Expert Panel. Circulation 2004;110:227 Current Interpretive Data was last revised on 2018. Chol/HDL ratio 2 [facility] Blood 05/22/2024 6:14 AM MACHINE ASSEMBLER SUPERVISOR 05/22/2024 6:45 AM MACHINE ASSEMBLER SUPERVISOR us Sincere Isidro MD LAB BLOOD ORDERABLES Final Result [facility] Department [place] [address] * Troponin I high-sensitivity 4-hour (05/22/2024 2:15 AM MACHINE ASSEMBLER SUPERVISOR) Trop I hs 33 <=35 ng/L Comment: Interpretive Data For further [facility] resources including the diagnostic algorithm and an aid in interpretation, copy and paste this link: https://bjhlab.testcatalog.org/show/[email or web address] Current Interpretive Data last revised 2019. Trop I hs delta -7 ng/L [facility] Trop I hs interp Equivocal [facility] Blood 05/22/2024 2:15 AM MACHINE ASSEMBLER SUPERVISOR 05/22/2024 2:30 AM MACHINE ASSEMBLER SUPERVISOR Edward Rueda MD LAB BLOOD ORDERABLES Abigail estella Result [facility] One [facility] Department [place] [address] * UT CRITICAL CARE ILL/INJURED PATIENT INIT 30-74 MIN (05/22/2024 1:57 AM MACHINE ASSEMBLER SUPERVISOR) Narrative New Patel MD - 05/22/2024 1:57 AM MACHINE ASSEMBLER SUPERVISOR New Patel MD ? 05/22/2024 ??2:04 AM Critical Care Performed by: New Patel MD Authorized by: New Patel MD ?? Critical care provider statement: As reflected in the history, physical exam, orders, notes, and/or MDM, I was personally present while the patient was critically ill and provided critical care services for 35 minutes, excluding time involved in separately billable procedures. ??Critical care was necessary to treat or prevent imminent or life-threatening deterioration of the following condition(s): ?? acute congestive heart failure excerbation (CHF) and hypertensive crisis ??Critical care was time spent by me providing the following: ? continuous telemetry, continuous pulse oximetry and interpretation of bedside monitors, imaging, and arterial/venous lab draws ?? acute diuresis and initiation and active titration of vasoactive medications ?? I provided emergent necessary critical care medicine services to this patient. I ordered and reviewed test results and/or imaging studies. I spent time discussing the management of this critically ill patient with consultants and the medical staff. I spent time discussing the management and therapeutic options for this critically ill patient with the patient themselves or with the appropriate designated surrogate decision-maker. I spent time documenting in the medical record. us New Patel MD IN CLINIC/BEDSIDE ORDERAB LES Edited Result - Final * (ABNORMAL) Troponin I high-sensitivity series (baseline, 2hr, 4hr, 6hr) (05/21/2024 10:13 PM MACHINE ASSEMBLER SUPERVISOR) Trop I hs 40(H) <=35 ng/L Comment: Interpretive Data For further hscTnI resources including the diagnostic algorithm and an aid in interpretation, copy and paste this link: https://bjhlab.testcatalog.org/show/hsTrop-[email or web address] Current Interpretive Data last revised 2019. Blood 05/21/2024 10:1 3 PM MACHINE ASSEMBLER SUPERVISOR 05/21/2024 11:09 PM MACHINE ASSEMBLER SUPERVISOR us New Patel MD LAB BLOOD ORDERABLES Baigail l Result [facility] Department [place] [address] * (ABNORMAL) eGFR (05/21/2024 10:13 PM MACHINE ASSEMBLER SUPERVISOR) eGFR 23(L) >=60 mL/min/1. 73 m2 Comment: Interpretive Data Reference Interval Normal ?>/= 90 mL/min/1.73m2 Mildly decreased* ? 60 - 89 mL/min/1.73m2 Mildly to moderately decreased ?45 - 59 mL/min/1.73m2 Moderately to severely decreased ??30 - 44 mL/min/1.73m2 Severely decreased ?15 - 29 mL/min/1.73m2 Kidney Failure ?< 15 ??mL/min/1.73m2 *Relative to young adult level Estimated glomerular filtration rate is determined by the 2020 CKD-EPI equation recommended by the National Kidney Foundation (A Unifying Approach to GFR Estimation: Recommendations of the NKF-ASK Task Force on Reassessing the Inclusion of Race in Diagnosing Kidney Disease, JASN 202). The CKD-EPI equation should not be used for patients with unstable renal function and has not been validated in children and those over 70. Current interpretive data was last reviewed 2021. Blood 05/21/2024 10:1 3 PM MACHINE ASSEMBLER SUPERVISOR 05/21/2024 11:09 PM MACHINE ASSEMBLER SUPERVISOR us New Patel MD LAB BLOOD ORDERABLES Abigail soria Result [facility] One [facility] Department [place] [address] * Differential, auto (05/21/2024 10:13 PM MACHINE ASSEMBLER SUPERVISOR) Neutrophil abs 4.3 1.5 - 6.5 K/cumm Imm gran abs 0.0 0.0 - 0.1 K/cumm [facility] Lymphocyte abs 1.0 0.8 - 3.3 K/cumm [facility] Monocyte abs 0.3 0.2 - 0.8 K/cumm [facility] Eosinophil abs 0.1 0.0 - 0.5 K/cumm [facility] Basophil abs 0.0 0.0 - 0.1 K/cumm [facility] Neutrophil pct 74.8 % [facility] Comment: Interpretive Data Percent cell count reference ranges are not reported, since discordance with absolute values may lead to misinterpretation of CBC data. Current Interpretive Data was last revised on 2017. Imm gran pct 0.5 % [facility] Comment: Interpretive Data Percent cell count reference ranges are not reported, since discordance with absolute values may lead to misinterpretation of CBC data. Current Interpretive Data was last revised on 2017. Lymphocyte pct 17.9 % [facility] Comment: Interpretive Data Percent cell count reference ranges are not reported, since discordance with absolute values may lead to misinterpretation of CBC data. Current Interpretive Data was last revised on 2017. Monocyte pct 4.9 % [facility] Comment: Interpretive Data Percent cell count reference ranges are not reported, since discordance with absolute values may lead to misinterpretation of CBC data. Current Interpretive Data was last revised on 2017. Eosinophil pct 1.6 % [facility] Comment: Interpretive Data Percent cell count reference ranges are not reported, since discordance with absolute values may lead to misinterpretation of CBC data. Current Interpretive Data was last revised on 2017. Basophil pct 0.3 % [facility] Comment: Interpretive Data Percent cell count reference ranges are not reported, since discordance with absolute values may lead to misinterpretation of CBC data. Current Interpretive Data was last revised on 2017. Blood 05/21/2024 10:1 3 PM MACHINE ASSEMBLER SUPERVISOR 05/21/2024 11:09 PM MACHINE ASSEMBLER SUPERVISOR us New Patel MD LAB BLOOD ORDERABLES Abigail soria Result [facility] One [facility] Department [place] [address] * (ABNORMAL) Pro B-type natriuretic peptide (05/21/2024 10:13 PM MACHINE ASSEMBLER SUPERVISOR) NT-proBNP 9,079(H) <=300 pg/mL Comment: Interpretive Comments: A. Dyspnea in Acute Care Setting All Ages: ?< 300 pg/ml, acute heart failure unlikely. < 50 yrs: ?300 - 450 pg/ml, further investigation warranted. ? > 450 pg/ml, acute heart failure likely. 50 - 74 yrs: ? 300 - 900 pg/ml, further investigation warranted. ? > 900 pg/ml, acute heart failure likely . > or = 75 yrs: ? 450 - 1800 pg/ml, further investigation warranted. ? > 1800 pg/ml, acute heart failure likely. B. Non-acute Setting < 75 yrs ? < 125 pg/ml, rules out heart failure. ? > or = 125 pg/ml, further investigation warranted. > or = 75 yrs ?< 450 pg/ml, rules out heart failure. ? > or = 450 pg/ml, further investigation warranted. - Knowledge of each individual patient's NT-proBNP range may be more useful than using similar cut-points for every patient. Please note that marked elevations in NT-proBNP levels may be observed in state other than Left Ventricular Congestive Failure, including: acute coronary syndromes, right heart strain/failure (including pulmonary embolism and cor pulmonale), critical illness, renal failure, as well as advanced age. - References: 1. Leida LUNA et.al. Eur Heart J. 2006:27:330-337. 2. Gisela RW, Devin AM. J. AM Nancy Cardiol: Cardiovasc Imag. 2009;2: 216- 225. Interpretive Data Last Revised Date: 2018. Blood 05/21/2024 10:1 3 PM MACHINE ASSEMBLER SUPERVISOR 05/21/2024 11:09 PM MACHINE ASSEMBLER SUPERVISOR us New Patel MD LAB BLOOD ORDERABLES Abigail soria Result [facility] Department of Laboratories [place], [place] [id number] * (ABNORMAL) CBC with auto differential (05/21/2024 10:13 PM MACHINE ASSEMBLER SUPERVISOR) [facility] WBC 5.7 3.8 - 9.9 K/cumm Hgb 10.4(L) 13.0 - 17.5 g/dL [facility] Hct 34.5(L) 38.9 - 50.3 % [facility] Plt 326 150 - 400 K/cumm [facility] MPV 9.8 9.1 - 12.3 fL [facility] RBC 4.01(L) 4.30 - 5.80 M/cumm [facility] MCV 86.0 81.3 - 96.4 fL [facility] MCH 25.9(L) 27.1 - 33.3 pg [facility] MCHC 30.1(L) 32.3 - 35.7 g/dL [facility] RDW CV 20.7(H) 11.1 - 14.9 % [facility] RDW SD 64.3(H) 35.7 - 48.1 fL [facility] NRBC abs 0.00 0.00 - 0.01 K/cumm [facility] Blood 05/21/2024 10:1 3 PM MACHINE ASSEMBLER SUPERVISOR 05/21/2024 11:09 PM MACHINE ASSEMBLER SUPERVISOR New Patel MD LAB BLOOD ORDERABLES Abigail l Result [facility] Department [place] [address] * (ABNORMAL) Comprehensive metabolic panel (05/21/2024 10:13 PM MACHINE ASSEMBLER SUPERVISOR) Sodium 142 135 - 145 mmol/L Potassium, pl 3.8 3.3 - 4.9 mmol/L [facility] Chloride 105 97 - 110 mmol/L [facility] CO2 26 22 - 32 mmol/L [facility] Anion gap 11 2 - 15 mmol/L [facility] BUN 34(H) 6 - 25 mg/dL [facility] Creatinine 3.34(H) 0.80 - 1.30 mg/dL [facility] Glucose 135 70 - 199 mg/dL [facility] Comment: Interpretive Data Fasting glucose >/= 126 mg/dl is diagnostic for diabetes. ?? Fasting is defined as no caloric intake for at least 8 hours. Fasting glucose between 100 mg/dl to 125 mg/dl is diagnostic of prediabetes. In a patient with classic symptoms of hyperglycemia or hyperglycemic crisis, a random glucose >/= 200 mg/dl is diagnostic for diabetes. In the absence of unequivocal hyperglycemia, results should be confirmed by repeat testing. The classification and Diagnosis of Diabetes Diabetes Care 2021; 46: S19-S40. Current interpretive data was last revised 2022. Calcium 9.1 8.5 - 10.3 mg/dL [facility] Bilirubin, total 0.5 0.1 - 1.2 mg/dL [facility] Protein, pl 7.7 6.5 - 8.5 g/dL [facility] Albumin 3.5 3.5 - 5.0 g/dL [facility] Alk phos 128 40 - 130 Units/L [facility] ALT 50 7 - 55 Units/L [facility] AST 32 10 - 50 Units/L [facility] Blood 05/21/2024 10:1 3 PM MACHINE ASSEMBLER SUPERVISOR 05/21/2024 11:09 PM MACHINE ASSEMBLER SUPERVISOR New Patel MD LAB BLOOD ORDERABLES Abigail l Result [facility] One [facility] Department [place] [address] * XR Chest PA Lateral 2 Views (05/21/2024 8:12 PM MACHINE ASSEMBLER SUPERVISOR) Anatomical Region Laterality Modality Body, Chest N/A Computed Radiogr aphy 05/21/2024 8:43 PM MACHINE ASSEMBLER SUPERVISOR Impressions 05/21/2024 8:46 PM MACHINE ASSEMBLER SUPERVISOR Comparison 05/02/2024 No focal consolidation or definite pulmonary edema. No no pleural effusion or pneumothorax. Stable cardiomediastinal silhouette which is moderately enlarged, which given the configuration could represent underlying pericardial effusion. Consider correlation with echocardiography. Dictated by: Ghazal Rangel MD The radiology attending physician has personally reviewed this study, and had reviewed and/or edited this written report and agrees with it. Electronically signed by: Elias Sousa M.D. Narrative 05/21/2024 8:46 PM MACHINE ASSEMBLER SUPERVISOR EXAMINATION: 2 view chest radiograph Procedure Note Elias Sousa MD - 05/21/2024 EXAMINATION: 2 view chest radiograph IMPRESSION: Comparison 05/02/2024 No focal consolidation or definite pulmonary edema. No no pleural effusion or pneumothorax. Stable cardiomediastinal silhouette which is moderately enlarged, which given the configuration could represent underlying pericardial effusion. Consider correlation with echocardiography. Dictated by: Ghazal Rangel MD The radiology attending physician has personally reviewed this study, and had reviewed and/or edited this written report and agrees with it. Electronically signed by: Elias Sousa M.D. us New Patel MD IMG XR PROCEDURES Final R esult * ECG 12-LEAD (05/21/2024 8:11 PM MACHINE ASSEMBLER SUPERVISOR) Narrative MUSE C - 05/21/2024 8:11 PM MACHINE ASSEMBLER SUPERVISOR Florentino Macias MD ? 05/21/2024 ??8:12 PM ECG 12 lead Date/Time: 05/21/2024 8:11 PM Performed by: Florentino Macias MD Authorized by: Edward Rueda MD ?? Rate: ??ECG rate: ??86 ??ECG rate assessment: normal ?? Rhythm: ??Rhythm: sinus rhythm ?? Ectopy: ??Ectopy: none ?? QRS: ??QRS axis: ??Normal ??QRS intervals: ??Normal Conduction: ??Conduction: normal ?? ST segments: ??ST segments: ??Normal T waves: ??T waves: normal ?? Other findings: ??Other findings: LAE ?? Interpretation: ??Interpretation: No significant change ?? Recommended Follow-up: ??Recommended follow up: further workup in the ED ?? Comments: ?? New flipped P in V3 Procedure Note Florentino Macias MD - 05/21/2024 8:11 PM CST Procedure ECG 12 lead Date/Time: 05/21/2024 8:11 PM Performed by: Florentino Macias MD Authorized by: Edward Rueda MD Rate: ECG rate: 86 ECG rate assessment: normal Rhythm: Rhythm: sinus rhythm Ectopy: Ectopy: none QRS: QRS axis: Normal QRS intervals: Normal Conduction: Conduction: normal ST segments: ST segments: Normal T waves: T waves: normal Other findings: Other findings: LAE Interpretation: Interpretation: No significant change Recommended Follow-up: Recommended follow up: further workup in the ED Comments: New flipped P in V3 Florentino Macias MD 05/21/242011 us New Patel MD ECG ORDERABLES Final Res ult [facility] * (ABNORMAL) eGFR (05/09/2024 5:25 AM MACHINE ASSEMBLER SUPERVISOR) eGFR 22(L) >=60 mL/min/1. 73 m2 Comment: Interpretive Data Reference Interval Normal ?>/= 90 mL/min/1.73m2 Mildly decreased* ? 60 - 89 mL/min/1.73m2 Mildly to moderately decreased ?45 - 59 mL/min/1.73m2 Moderately to severely decreased ??30 - 44 mL/min/1.73m2 Severely decreased ?15 - 29 mL/min/1.73m2 Kidney Failure ?< 15 ??mL/min/1.73m2 *Relative to young adult level Estimated glomerular filtration rate is determined by the 2020 CKD-EPI equation recommended by the National Kidney Foundation (A Unifying Approach to GFR Estimation: Recommendations of the NKF-ASK Task Force on Reassessing the Inclusion of Race in Diagnosing Kidney Disease, JASN 2020). The CKD-EPI equation should not be used for patients with unstable renal function and has not been validated in children and those over 70. Current interpretive data was last reviewed 2021. Testing performed by: [facility], [address] [place] [address], [place]., [address] Blood 05/09/2024 5:25 AM MACHINE ASSEMBLER SUPERVISOR 05/09/2024 5:59 AM MACHINE ASSEMBLER SUPERVISOR us Edward Sauer MD LAB BLOOD ORDERABLES Final R esult [facility] [address] [facility] Department of Laboratories [place], [place] [id number] * Differential, auto (05/09/2024 5:25 AM MACHINE ASSEMBLER SUPERVISOR) Neutrophil abs 4.8 1.5 - 6.5 K/cumm Comment:Testing performed by : [address] [address] Imm gran abs 0.0 0.0 - 0.1 K/cumm [facility] Comment:Testing performed by : [address] [address] Lymphocyte abs 1.1 0.8 - 3.3 K/cumm [facility] Comment:Testing performed by : [address] [address] Monocyte abs 0.8 0.2 - 0.8 K/cumm [facility] Comment:Testing performed by : [address] [address] Eosinophil abs 0.1 0.0 - 0.5 K/cumm [facility] Comment:Testing performed by : [address] [address] Basophil abs 0.0 0.0 - 0.1 K/cumm [facility] Comment:Testing performed by : [address] [address] Neutrophil pct 70.6 % [facility] Comment: Interpretive Data Percent cell count reference ranges are not reported, since discordance with absolute values may lead to misinterpretation of CBC data. Current Interpretive Data was last revised on 2017. Testing performed by: [address] [address] Imm gran pct 0.4 % [facility] Comment: Interpretive Data Percent cell count reference ranges are not reported, since discordance with absolute values may lead to misinterpretation of CBC data. Current Interpretive Data was last revised on 2017. Testing performed by: [address] [address] Lymphocyte pct 15.5 % [facility] Comment: Interpretive Data Percent cell count reference ranges are not reported, since discordance with absolute values may lead to misinterpretation of CBC data. Current Interpretive Data was last revised on 2017. Testing performed by: [address] [address] Monocyte pct 11.1 % [facility] Comment: Interpretive Data Percent cell count reference ranges are not reported, since discordance with absolute values may lead to misinterpretation of CBC data. Current Interpretive Data was last revised on 2017. Testing performed by: [address] [address] Eosinophil pct 2.1 % [facility] Comment: Interpretive Data Percent cell count reference ranges are not reported, since discordance with absolute values may lead to misinterpretation of CBC data. Current Interpretive Data was last revised on 2017. Testing performed by: [address] [address] Basophil pct 0.3 % [facility] Comment: Interpretive Data Percent cell count reference ranges are not reported, since discordance with absolute values may lead to misinterpretation of CBC data. Current Interpretive Data was last revised on 2017. Testing performed by: [address] [address] Blood 05/09/2024 5:25 AM MACHINE ASSEMBLER SUPERVISOR 05/09/2024 5:59 AM MACHINE ASSEMBLER SUPERVISOR Amaury Lezama MD LAB BLOOD ORDERABL ES Final Result [facility] [address] [facility] Department [place] [address] * (ABNORMAL) CBC with auto differential (05/09/2024 5:25 AM MACHINE ASSEMBLER SUPERVISOR) WBC 6.8 3.8 - 9.9 K/cumm Comment:Testing performed by : [address] [address] Hgb 9.5(L) 13.0 - 17.5 g/dL [facility] Comment:Testing performed by : [address], [address] Hct 31.1(L) 38.9 - 50.3 % [facility] Comment:Testing performed by : [address] [address] Plt 284 150 - 400 K/cumm [facility] Comment:Testing performed by : [address] [address] MPV 9.5 9.1 - 12.3 fL [facility] Comment:Testing performed by : [address] [address] RBC 3.76(L) 4.30 - 5.80 M/cumm [facility] Comment:Testing performed by : [address] [address] MCV 82.7 81.3 - 96.4 fL [facility] Comment:Testing performed by : [address] [address] MCH 25.3(L) 27.1 - 33.3 pg [facility] Comment:Testing performed by : [address] [address] MCHC 30.5(L) 32.3 - 35.7 g/dL [facility] Comment:Testing performed by : [address], [address] RDW CV 18.7(H) 11.1 - 14.9 % [facility] Comment:Testing performed by : [address], [address] RDW SD 55.7(H) 35.7 - 48.1 fL [facility] Comment:Testing performed by : [address] [address] NRBC abs 0.00 0.00 - 0.01 K/cumm [facility] Comment:Testing performed by : [address], [address] Blood 05/09/2024 5:25 AM MACHINE ASSEMBLER SUPERVISOR 05/09/2024 5:59 AM MACHINE ASSEMBLER SUPERVISOR Amaury Lezama MD LAB BLOOD ORDERABL ES Final Result Performing Organization Address [facility] Co de Phone Number [address] [place] [place] [address] * (ABNORMAL) Phosphorus (05/09/2024 5:25 AM MACHINE ASSEMBLER SUPERVISOR) Phosphorus, pl 4.7(H) 2.3 - 4.5 mg/dL Comment:Testing performed by : [address] [address] Blood 05/09/2024 5:25 AM MACHINE ASSEMBLER SUPERVISOR 05/09/2024 5:59 AM MACHINE ASSEMBLER SUPERVISOR Amaury Lezama MD LAB BLOOD ORDERABL ES Final Result Performing Organization Address [facility] de Phone Number [address] [place] [place] [address] * Magnesium (05/09/2024 5:25 AM MACHINE ASSEMBLER SUPERVISOR) Pathologist [facility] Magnesium 2.1 1.4 - 2.5 mg/dL Comment:Testing performed by : [address] [address] Blood 05/09/2024 5:25 AM MACHINE ASSEMBLER SUPERVISOR 05/09/2024 5:59 AM MACHINE ASSEMBLER SUPERVISOR Amaury Lezama MD LAB BLOOD ORDERABL ES Final Result Performing Organization Address [facility] de Phone Number [address] [place] [place] [employer] [place] [address] * (ABNORMAL) Basic metabolic panel (05/09/2024 5:25 AM MACHINE ASSEMBLER SUPERVISOR) Pathologist [facility] Sodium 136 135 - 145 mmol/L Comment:Testing performed by : [address] [address] Potassium, pl 3.8 3.3 - 4.9 mmol/L ELVI Comment:Testing performed by : [address] [address] Chloride 98 97 - 110 mmol/L [facility]VI Comment:Testing performed by : [address] [address] CO2 27 22 - 32 mmol/L [facility]VI Comment:Testing performed by : [address] [address] Anion gap 11 2 - 15 mmol/L [facility]VI Comment:Testing performed by : [address] [address] BUN 44(H) 6 - 25 mg/dL [facility]VI Comment:Testing performed by : [address] [address] Creatinine 3.50(H) 0.80 - 1.30 mg/dL [facility]VI Comment:Testing performed by : [address] [address] Glucose 101 70 - 199 mg/dL [facility]VI Comment: Interpretive Data Fasting glucose >/= 126 mg/dl is diagnostic for diabetes. ?? Fasting is defined as no caloric intake for at least 8 hours. Fasting glucose between 100 mg/dl to 125 mg/dl is diagnostic of prediabetes. In a patient with classic symptoms of hyperglycemia or hyperglycemic crisis, a random glucose >/= 200 mg/dl is diagnostic for diabetes. In the absence of unequivocal hyperglycemia, results should be confirmed by repeat testing. The classification and Diagnosis of Diabetes Diabetes Care 202; 46: S19-S40. Current interpretive data was last revised 2022. Testing performed by: [address] [address] Calcium 9.0 8.5 - 10.3 mg/dL [facility]VI Comment:Testing performed by : [address] [address] Blood 05/09/2024 5:25 AM MACHINE ASSEMBLER SUPERVISOR 05/09/2024 5:59 AM MACHINE ASSEMBLER SUPERVISOR us Edward Sauer MD LAB BLOOD ORDERABLES Final R esult [facility] [address] [facility] Department [place] [address] * (ABNORMAL) eGFR (05/08/2024 5:20 AM MACHINE ASSEMBLER SUPERVISOR) eGFR 21(L) >=60 mL/min/1. 73 m2 Comment: Interpretive Data Reference Interval Normal ?>/= 90 mL/min/1.73m2 Mildly decreased* ? 60 - 89 mL/min/1.73m2 Mildly to moderately decreased ?45 - 59 mL/min/1.73m2 Moderately to severely decreased ??30 - 44 mL/min/1.73m2 Severely decreased ?15 - 29 mL/min/1.73m2 Kidney Failure ?< 15 ??mL/min/1.73m2 *Relative to young adult level Estimated glomerular filtration rate is determined by the 2020 CKD-EPI equation recommended by the National Kidney Foundation (A Unifying Approach to GFR Estimation: Recommendations of the NKF-ASK Task Force on Reassessing the Inclusion of Race in Diagnosing Kidney Disease, JASN 2020). The CKD-EPI equation should not be used for patients with unstable renal function and has not been validated in children and those over 70. Current interpretive data was last reviewed 2021. Testing performed by: [facility], [address] [place] [address]., [address] Blood 05/08/2024 5:20 AM MACHINE ASSEMBLER SUPERVISOR 05/08/2024 5:55 AM MACHINE ASSEMBLER SUPERVISOR us Edward Sauer MD LAB BLOOD ORDERABLES Final R esult [facility]OUTTZ [address] [facility] Department [place] [address] * (ABNORMAL) Differential, auto (05/08/2024 5:20 AM MACHINE ASSEMBLER SUPERVISOR) Pathologist [facility] Neutrophil abs 5.5 1.5 - 6.5 K/cumm Comment:Testing performed by : [facility], [address] [place] [address], [place]., [address] Imm gran abs 0.0 0.0 - 0.1 K/cumm ELVI Comment:Testing performed by : [facility], [address] [place] [address], [place]., [address] Lymphocyte abs 0.7(L) 0.8 - 3.3 K/cumm [facility] Comment:Testing performed by : [address] [address] Monocyte abs 0.7 0.2 - 0.8 K/cumm [facility] Comment:Testing performed by : [address], [place]., [address] Eosinophil abs 0.1 0.0 - 0.5 K/cumm [facility] Comment:Testing performed by : [address] [address] Basophil abs 0.0 0.0 - 0.1 K/cumm [facility] Comment:Testing performed by : [address] [address] Neutrophil pct 77.7 % [facility] Comment: Interpretive Data Percent cell count reference ranges are not reported, since discordance with absolute values may lead to misinterpretation of CBC data. Current Interpretive Data was last revised on 2017. Testing performed by: [address] [address] Imm gran pct 0.4 % [facility] Comment: Interpretive Data Percent cell count reference ranges are not reported, since discordance with absolute values may lead to misinterpretation of CBC data. Current Interpretive Data was last revised on 2017. Testing performed by: [address] [address] Lymphocyte pct 10.4 % [facility] Comment: Interpretive Data Percent cell count reference ranges are not reported, since discordance with absolute values may lead to misinterpretation of CBC data. Current Interpretive Data was last revised on 2017. Testing performed by: [address] [address] Monocyte pct 10.1 % [facility] Comment: Interpretive Data Percent cell count reference ranges are not reported, since discordance with absolute values may lead to misinterpretation of CBC data. Current Interpretive Data was last revised on 2017. Testing performed by: [address] [address] Eosinophil pct 1.1 % [facility] Comment: Interpretive Data Percent cell count reference ranges are not reported, since discordance with absolute values may lead to misinterpretation of CBC data. Current Interpretive Data was last revised on 2017. Testing performed by: [address] [address] Basophil pct 0.3 % [facility] Comment: Interpretive Data Percent cell count reference ranges are not reported, since discordance with absolute values may lead to misinterpretation of CBC data. Current Interpretive Data was last revised on 2017. Testing performed by: [address] [address] Blood 05/08/2024 5:20 AM MACHINE ASSEMBLER SUPERVISOR 05/08/2024 5:55 AM MACHINE ASSEMBLER SUPERVISOR Amaury Lezama MD LAB BLOOD ORDERABL ES Final Result [facility] [address] [facility] Department [place] [address] * (ABNORMAL) CBC with auto differential (05/08/2024 5:20 AM MACHINE ASSEMBLER SUPERVISOR) Pathologist [facility] WBC 7.1 3.8 - 9.9 K/cumm Comment:Testing performed by : [address] [address] Hgb 9.0(L) 13.0 - 17.5 g/dL [facility] Comment:Testing performed by : [address] [address] Hct 29.1(L) 38.9 - 50.3 % [facility] Comment:Testing performed by : [address] [address] Plt 290 150 - 400 K/cumm [facility] Comment:Testing performed by : [address] [address] MPV 9.6 9.1 - 12.3 fL [facility] Comment:Testing performed by : [address] [address] RBC 3.56(L) 4.30 - 5.80 M/cumm [facility] SN[facility]ER Comment:Testing performed by : [address] [address] MCV 81.7 81.3 - 96.4 fL [facility] Comment:Testing performed by : [address] [address] MCH 25.3(L) 27.1 - 33.3 pg [facility] Comment:Testing performed by : [address] [address] MCHC 30.9(L) 32.3 - 35.7 g/dL [facility] Comment:Testing performed by : [address], [address] RDW CV 18.4(H) 11.1 - 14.9 % [facility] Comment:Testing performed by : [address] [address] RDW SD 53.3(H) 35.7 - 48.1 fL [facility] Comment:Testing performed by : [address] [address] NRBC abs 0.00 0.00 - 0.01 K/cumm [facility] Comment:Testing performed by : [address] [address] Blood 05/08/2024 5:20 AM MACHINE ASSEMBLER SUPERVISOR 05/08/2024 5:55 AM MACHINE ASSEMBLER SUPERVISOR us Amaury Lezama MD LAB BLOOD ORDERABL ES Final Result [facility] [address] [facility] Department of Laboratories [place], [place] [id number] * (ABNORMAL) Phosphorus (05/08/2024 5:20 AM MACHINE ASSEMBLER SUPERVISOR) Phosphorus, pl 4.6(H) 2.3 - 4.5 mg/dL Comment:Testing performed by : [address] [address] Blood 05/08/2024 5:20 AM MACHINE ASSEMBLER SUPERVISOR 05/08/2024 5:55 AM MACHINE ASSEMBLER SUPERVISOR Amaury Lezama MD LAB BLOOD ORDERABL ES Final Result Performing Organization Address [facility] Co de Phone Number [address] [place] [place] [address] * Magnesium (05/08/2024 5:20 AM MACHINE ASSEMBLER SUPERVISOR) Pathologist [facility] Magnesium 2.1 1.4 - 2.5 mg/dL Comment:Testing performed by : [address] [address] Blood 05/08/2024 5:20 AM MACHINE ASSEMBLER SUPERVISOR 05/08/2024 5:55 AM MACHINE ASSEMBLER SUPERVISOR Amaruy Lezama MD LAB BLOOD ORDERABL ES Final Result Performing Organization Address [facility] Co de Phone Number [address] [address] * (ABNORMAL) Basic metabolic panel (05/08/2024 5:20 AM MACHINE ASSEMBLER SUPERVISOR) Pathologist [facility] Sodium 133(L) 135 - 145 mmol/L Comment:Testing performed by : [address] [address] Potassium, pl 3.8 3.3 - 4.9 mmol/L [facility]VI Comment:Testing performed by : [address] [address] Chloride 96(L) 97 - 110 mmol/L [facility] Comment:Testing performed by : [address] [address] CO2 26 22 - 32 mmol/L [facility] Comment:Testing performed by : [address] [address] Anion gap 11 2 - 15 mmol/L [facility] Comment:Testing performed by : [address] [address] BUN 43(H) 6 - 25 mg/dL [facility] Comment:Testing performed by : [address] [address] Creatinine 3.60(H) 0.80 - 1.30 mg/dL [facility] Comment:Testing performed by : [address] [address] Glucose 109 70 - 199 mg/dL [facility] Comment: Interpretive Data Fasting glucose >/= 126 mg/dl is diagnostic for diabetes. ?? Fasting is defined as no caloric intake for at least 8 hours. Fasting glucose between 100 mg/dl to 125 mg/dl is diagnostic of prediabetes. In a patient with classic symptoms of hyperglycemia or hyperglycemic crisis, a random glucose >/= 200 mg/dl is diagnostic for diabetes. In the absence of unequivocal hyperglycemia, results should be confirmed by repeat testing. The classification and Diagnosis of Diabetes Diabetes Care 202; 46: S19-S40. Current interpretive data was last revised 2022. Testing performed by: [address] [address] Calcium 8.8 8.5 - 10.3 mg/dL [facility] Comment:Testing performed by : [address] [address] Blood 05/08/2024 5:20 AM MACHINE ASSEMBLER SUPERVISOR 05/08/2024 5:55 AM MACHINE ASSEMBLER SUPERVISOR us Edward Sauer MD LAB BLOOD ORDERABLES Final R esult [facility] [address] [facility] Department [place] [address] * (ABNORMAL) eGFR (05/07/2024 3:12 AM MACHINE ASSEMBLER SUPERVISOR) eGFR 22(L) >=60 mL/min/1. 73 m2 Comment: Interpretive Data Reference Interval Normal ?>/= 90 mL/min/1.73m2 Mildly decreased* ? 60 - 89 mL/min/1.73m2 Mildly to moderately decreased ?45 - 59 mL/min/1.73m2 Moderately to severely decreased ??30 - 44 mL/min/1.73m2 Severely decreased ?15 - 29 mL/min/1.73m2 Kidney Failure ?< 15 ??mL/min/1.73m2 *Relative to young adult level Estimated glomerular filtration rate is determined by the 2020 CKD-EPI equation recommended by the National Kidney Foundation (A Unifying Approach to GFR Estimation: Recommendations of the NKF-ASK Task Force on Reassessing the Inclusion of Race in Diagnosing Kidney Disease, JASN 2020). The CKD-EPI equation should not be used for patients with unstable renal function and has not been validated in children and those over 70. Current interpretive data was last reviewed 2021. Testing performed by: [address] [address] Blood 05/07/2024 3:12 AM MACHINE ASSEMBLER SUPERVISOR 05/07/2024 4:37 AM MACHINE ASSEMBLER SUPERVISOR us Edward Sauer MD LAB BLOOD ORDERABLES Final R esult [facility] [address] [facility] Department [place] [address] * Differential, auto (05/07/2024 3:12 AM MACHINE ASSEMBLER SUPERVISOR) Neutrophil abs 5.0 1.5 - 6.5 K/cumm Comment:Testing performed by : [address] [address] Imm gran abs 0.0 0.0 - 0.1 K/cumm [facility]VI Comment:Testing performed by : [address] [address] Lymphocyte abs 1.0 0.8 - 3.3 K/cumm [facility] Comment:Testing performed by : [address] [address] Monocyte abs 0.7 0.2 - 0.8 K/cumm [facility] Comment:Testing performed by : [address] [address] Eosinophil abs 0.1 0.0 - 0.5 K/cumm [facility] Comment:Testing performed by : [address], [place]., [address] Basophil abs 0.0 0.0 - 0.1 K/cumm [facility] Comment:Testing performed by : [address] [address] Neutrophil pct 73.7 % [facility] Comment: Interpretive Data Percent cell count reference ranges are not reported, since discordance with absolute values may lead to misinterpretation of CBC data. Current Interpretive Data was last revised on 2017. Testing performed by: [address] [address] Imm gran pct 0.3 % [facility] Comment: Interpretive Data Percent cell count reference ranges are not reported, since discordance with absolute values may lead to misinterpretation of CBC data. Current Interpretive Data was last revised on 2017. Testing performed by: [address] [address] Lymphocyte pct 14.2 % [facility] Comment: Interpretive Data Percent cell count reference ranges are not reported, since discordance with absolute values may lead to misinterpretation of CBC data. Current Interpretive Data was last revised on 2017. Testing performed by: [address] [address] Monocyte pct 10.2 % [facility] Comment: Interpretive Data Percent cell count reference ranges are not reported, since discordance with absolute values may lead to misinterpretation of CBC data. Current Interpretive Data was last revised on 2017. Testing performed by: [address] [address] Eosinophil pct 1.3 % [facility] Comment: Interpretive Data Percent cell count reference ranges are not reported, since discordance with absolute values may lead to misinterpretation of CBC data. Current Interpretive Data was last revised on 2017. Testing performed by: [address] [address] Basophil pct 0.3 % [facility] Comment: Interpretive Data Percent cell count reference ranges are not reported, since discordance with absolute values may lead to misinterpretation of CBC data. Current Interpretive Data was last revised on 2017. Testing performed by: [address] [address] Blood 05/07/2024 3:12 AM MACHINE ASSEMBLER SUPERVISOR 05/07/2024 4:40 AM MACHINE ASSEMBLER SUPERVISOR us Amaury Lezama MD LAB BLOOD ORDERABL ES Final Result [facility] [address] [facility] Department [place] [address] * (ABNORMAL) CBC with auto differential (05/07/2024 3:12 AM MACHINE ASSEMBLER SUPERVISOR) WBC 6.8 3.8 - 9.9 K/cumm Comment:Testing performed by : [address] [address] Hgb 9.2(L) 13.0 - 17.5 g/dL [facility] Comment:Testing performed by : [address] [address] Hct 30.0(L) 38.9 - 50.3 % [facility] SN[facility] Comment:Testing performed by : [address] [address] Plt 298 150 - 400 K/cumm [facility] Comment:Testing performed by : [address] [address] MPV 9.4 9.1 - 12.3 fL [facility] Comment:Testing performed by : [address] [address] RBC 3.65(L) 4.30 - 5.80 M/cumm [facility] Comment:Testing performed by : [address] [address] MCV 82.2 81.3 - 96.4 fL [facility] SN[facility] Comment:Testing performed by : [facility], [address] [place] [address]., [address] MCH 25.2(L) 27.1 - 33.3 pg [facility] SNIDER Comment:Testing performed by : [address] [address] MCHC 30.7(L) 32.3 - 35.7 g/dL [facility] Comment:Testing performed by : [address] [address] RDW CV 18.1(H) 11.1 - 14.9 % [facility] Comment:Testing performed by : [address], [address] RDW SD 53.0(H) 35.7 - 48.1 fL [facility] Comment:Testing performed by : [address] [address] NRBC abs 0.00 0.00 - 0.01 K/cumm [facility] Comment:Testing performed by : [address], [address] Blood 05/07/2024 3:12 AM MACHINE ASSEMBLER SUPERVISOR 05/07/2024 4:40 AM MACHINE ASSEMBLER SUPERVISOR Amaury Lezama MD LAB BLOOD ORDERABL ES Final Result Performing Organization Address [facility] Co de Phone Number [facility] [address] [facility] Department [place] [address] * Phosphorus (05/07/2024 3:12 AM MACHINE ASSEMBLER SUPERVISOR) Phosphorus, pl 4.2 2.3 - 4.5 mg/dL Comment:Testing performed by : [address] [address] Blood 05/07/2024 3:12 AM MACHINE ASSEMBLER SUPERVISOR 05/07/2024 4:37 AM MACHINE ASSEMBLER SUPERVISOR Amaury Lezama MD LAB BLOOD ORDERABL ES Final Result [facility] [address] [facility] Department [place] [address] * Magnesium (05/07/2024 3:12 AM MACHINE ASSEMBLER SUPERVISOR) [facility] Magnesium 1.9 1.4 - 2.5 mg/dL Comment:Testing performed by : [address] [address] Blood 05/07/2024 3:12 AM MACHINE ASSEMBLER SUPERVISOR 05/07/2024 4:37 AM MACHINE ASSEMBLER SUPERVISOR Amaury Lezama MD LAB BLOOD ORDERABL ES Final Result [facility] [address] [facility] Department [place] [address] * (ABNORMAL) Basic metabolic panel (05/07/2024 3:12 AM MACHINE ASSEMBLER SUPERVISOR) [facility] Sodium 133(L) 135 - 145 mmol/L Comment:Testing performed by : [address] [address] Potassium, pl 3.5 3.3 - 4.9 mmol/L [facility] Comment:Testing performed by : [address] [address] Chloride 95(L) 97 - 110 mmol/L [facility] Comment:Testing performed by : [address] [address] CO2 28 22 - 32 mmol/L [facility] Comment:Testing performed by : [address] [address] Anion gap 10 2 - 15 mmol/L [facility] Comment:Testing performed by : [address] [address] BUN 40(H) 6 - 25 mg/dL [facility] Comment:Testing performed by : [address] [address] Creatinine 3.50(H) 0.80 - 1.30 mg/dL [facility] Comment:Testing performed by : [address] [address] Glucose 108 70 - 199 mg/dL [facility] Comment: Interpretive Data Fasting glucose >/= 126 mg/dl is diagnostic for diabetes. ?? Fasting is defined as no caloric intake for at least 8 hours. Fasting glucose between 100 mg/dl to 125 mg/dl is diagnostic of prediabetes. In a patient with classic symptoms of hyperglycemia or hyperglycemic crisis, a random glucose >/= 200 mg/dl is diagnostic for diabetes. In the absence of unequivocal hyperglycemia, results should be confirmed by repeat testing. The classification and Diagnosis of Diabetes Diabetes Care 202; 46: S19-S40. Current interpretive data was last revised 2022. Testing performed by: [facility], [address] [place] [address]., [address] Calcium 9.0 8.5 - 10.3 mg/dL [facility] Comment:Testing performed by : [facility], [address] [place] [address]., [address] Blood 05/07/2024 3:12 AM MACHINE ASSEMBLER SUPERVISOR 05/07/2024 4:37 AM MACHINE ASSEMBLER SUPERVISOR us Edward Sauer MD LAB BLOOD ORDERABLES Final R esult [facility] [address] [facility] Department [place] [address] * (ABNORMAL) eGFR (05/06/2024 3:28 AM MACHINE ASSEMBLER SUPERVISOR) eGFR 23(L) >=60 mL/min/1. 73 m2 Comment: Interpretive Data Reference Interval Normal ?>/= 90 mL/min/1.73m2 Mildly decreased* ? 60 - 89 mL/min/1.73m2 Mildly to moderately decreased ?45 - 59 mL/min/1.73m2 Moderately to severely decreased ??30 - 44 mL/min/1.73m2 Severely decreased ?15 - 29 mL/min/1.73m2 Kidney Failure ?< 15 ??mL/min/1.73m2 *Relative to young adult level Estimated glomerular filtration rate is determined by the 2020 CKD-EPI equation recommended by the National Kidney Foundation (A Unifying Approach to GFR Estimation: Recommendations of the NKF-ASK Task Force on Reassessing the Inclusion of Race in Diagnosing Kidney Disease, JASN 2020). The CKD-EPI equation should not be used for patients with unstable renal function and has not been validated in children and those over 70. Current interpretive data was last reviewed 2021. Testing performed by: [address] [address] Blood 05/06/2024 3:28 AM MACHINE ASSEMBLER SUPERVISOR 05/06/2024 5:14 AM MACHINE ASSEMBLER SUPERVISOR us Edward Sauer MD LAB BLOOD ORDERABLES Final R esult [facility] [address] [facility] Department [place] [address] * Differential, auto (05/06/2024 3:28 AM MACHINE ASSEMBLER SUPERVISOR) Neutrophil abs 5.7 1.5 - 6.5 K/cumm Comment:Testing performed by : [address] [address] Imm gran abs 0.0 0.0 - 0.1 K/cumm [facility] Comment:Testing performed by : [address] [address] Lymphocyte abs 0.8 0.8 - 3.3 K/cumm [facility] Comment:Testing performed by : [address] [address] Monocyte abs 0.7 0.2 - 0.8 K/cumm [facility] Comment:Testing performed by : [address] [address] Eosinophil abs 0.1 0.0 - 0.5 K/cumm [facility] Comment:Testing performed by : [address] [address] Basophil abs 0.0 0.0 - 0.1 K/cumm [facility] Comment:Testing performed by : [address] [address] Neutrophil pct 77.4 % [facility] Comment: Interpretive Data Percent cell count reference ranges are not reported, since discordance with absolute values may lead to misinterpretation of CBC data. Current Interpretive Data was last revised on 2017. Testing performed by: [address] [address] Imm gran pct 0.4 % [facility] Comment: Interpretive Data Percent cell count reference ranges are not reported, since discordance with absolute values may lead to misinterpretation of CBC data. Current Interpretive Data was last revised on 2017. Testing performed by: [address] [address] Lymphocyte pct 11.4 % [facility] Comment: Interpretive Data Percent cell count reference ranges are not reported, since discordance with absolute values may lead to misinterpretation of CBC data. Current Interpretive Data was last revised on 2017. Testing performed by: [address] [address] Monocyte pct 8.9 % [facility] Comment: Interpretive Data Percent cell count reference ranges are not reported, since discordance with absolute values may lead to misinterpretation of CBC data. Current Interpretive Data was last revised on 2017. Testing performed by: [address] [address] Eosinophil pct 1.4 % [facility] Comment: Interpretive Data Percent cell count reference ranges are not reported, since discordance with absolute values may lead to misinterpretation of CBC data. Current Interpretive Data was last revised on 2017. Testing performed by: [address] [address] Basophil pct 0.5 % [facility] Comment: Interpretive Data Percent cell count reference ranges are not reported, since discordance with absolute values may lead to misinterpretation of CBC data. Current Interpretive Data was last revised on 2017. Testing performed by: [address] [address] Blood 05/06/2024 3:28 AM MACHINE ASSEMBLER SUPERVISOR 05/06/2024 5:14 AM MACHINE ASSEMBLER SUPERVISOR Amaury Lezama MD LAB BLOOD ORDERABL ES Final Result [facility] [address] [facility] Department [place] [address] * (ABNORMAL) CBC with auto differential (05/06/2024 3:28 AM MACHINE ASSEMBLER SUPERVISOR) WBC 7.4 3.8 - 9.9 K/cumm Comment:Testing performed by : [address] [address] Hgb 9.2(L) 13.0 - 17.5 g/dL [facility] Comment:Testing performed by : [address] [address] Hct 30.1(L) 38.9 - 50.3 % [facility] Comment:Testing performed by : [address] [address] Plt 317 150 - 400 K/cumm [facility] Comment:Testing performed by : [address] [address] MPV 9.7 9.1 - 12.3 fL [facility] Comment:Testing performed by : [address] [address] RBC 3.69(L) 4.30 - 5.80 M/cumm [facility] Comment:Testing performed by : [address] [address] MCV 81.6 81.3 - 96.4 fL [place] Comment:Testing performed by : [address] [address] MCH 24.9(L) 27.1 - 33.3 pg [facility] Comment:Testing performed by : [address] [address] MCHC 30.6(L) 32.3 - 35.7 g/dL [facility] Comment:Testing performed by : [address] [address] RDW CV 17.6(H) 11.1 - 14.9 % [facility] Comment:Testing performed by : [address] [address] RDW SD 49.9(H) 35.7 - 48.1 fL [facility] Comment:Testing performed by : [address] [address] NRBC abs 0.00 0.00 - 0.01 K/cumm [facility] Comment:Testing performed by : [address], [address] Blood 05/06/2024 3:28 AM MACHINE ASSEMBLER SUPERVISOR 05/06/2024 5:14 AM MACHINE ASSEMBLER SUPERVISOR Amaury Lezama MD LAB BLOOD ORDERABL ES Final Result Performing Organization Address [facility] Co de Phone Number [address] [employer] [place] [employer] [place] [address] * (ABNORMAL) Vitamin D 25 hydroxy (05/06/2024 3:28 AM MACHINE ASSEMBLER SUPERVISOR) [facility] Vitamin D 25-OH 9.0(L) 30.0 - 80.0 ng/mL Blood 05/06/2024 3:28 AM MACHINE ASSEMBLER SUPERVISOR 05/06/2024 6:32 AM MACHINE ASSEMBLER SUPERVISOR Marcus House MD LAB BLOOD ORDERABLES Final Re sult [address] [place] [employer] [place] [address] * Phosphorus (05/06/2024 3:28 AM MACHINE ASSEMBLER SUPERVISOR) Pathologist [facility] Phosphorus, pl 3.4 2.3 - 4.5 mg/dL Comment:Testing performed by : [address] [address] Blood 05/06/2024 3:28 AM MACHINE ASSEMBLER SUPERVISOR 05/06/2024 5:14 AM MACHINE ASSEMBLER SUPERVISOR Amaury Lezama MD LAB BLOOD ORDERABL ES Final Result Performing Organization Address [facility] Co de Phone Number [address] [place] [employer] [place] [address] * (ABNORMAL) PTH (05/06/2024 3:28 AM MACHINE ASSEMBLER SUPERVISOR) Pathologist [facility] PTH 144(H) 15 - 65 pg/mL Comment:Testing performed by : [address] [address] Blood 05/06/2024 3:28 AM MACHINE ASSEMBLER SUPERVISOR 05/06/2024 5:46 AM MACHINE ASSEMBLER SUPERVISOR Marcus House MD LAB BLOOD ORDERABLES Final Re sult Performing Organization Address [facility] de Phone Number [address] [place] [employer] [place] [address] * Magnesium (05/06/2024 3:28 AM MACHINE ASSEMBLER SUPERVISOR) Pathologist [facility] Magnesium 1.8 1.4 - 2.5 mg/dL Comment:Testing performed by : [address] [address] Blood 05/06/2024 3:28 AM MACHINE ASSEMBLER SUPERVISOR 05/06/2024 5:14 AM MACHINE ASSEMBLER SUPERVISOR Amaury Lezama MD LAB BLOOD ORDERABL ES Final Result Performing Organization Address [facility] Co de Phone Number [address] [place] [place] [address] * (ABNORMAL) Basic metabolic panel (05/06/2024 3:28 AM MACHINE ASSEMBLER SUPERVISOR) [facility] Sodium 133(L) 135 - 145 mmol/L Comment:Testing performed by : [address] [address] Potassium, pl 3.6 3.3 - 4.9 mmol/L [facility] Comment:Testing performed by : [address] [address] Chloride 96(L) 97 - 110 mmol/L [facility] Comment:Testing performed by : [address] [address] CO2 27 22 - 32 mmol/L [facility] Comment:Testing performed by : [address] [address] Anion gap 10 2 - 15 mmol/L [facility] Comment:Testing performed by : [address] [address] BUN 35(H) 6 - 25 mg/dL [facility] Comment:Testing performed by : [address] [address] Creatinine 3.30(H) 0.80 - 1.30 mg/dL [facility] Comment:Testing performed by : [address] [address] Glucose 112 70 - 199 mg/dL [facility] Comment: Interpretive Data Fasting glucose >/= 126 mg/dl is diagnostic for diabetes. ?? Fasting is defined as no caloric intake for at least 8 hours. Fasting glucose between 100 mg/dl to 125 mg/dl is diagnostic of prediabetes. In a patient with classic symptoms of hyperglycemia or hyperglycemic crisis, a random glucose >/= 200 mg/dl is diagnostic for diabetes. In the absence of unequivocal hyperglycemia, results should be confirmed by repeat testing. The classification and Diagnosis of Diabetes Diabetes Care 202; 46: S19-S40. Current interpretive data was last revised 2022. Testing performed by: [address] [address] Calcium 8.9 8.5 - 10.3 mg/dL [facility] Comment:Testing performed by : [address] [address] Blood 05/06/2024 3:28 AM MACHINE ASSEMBLER SUPERVISOR 05/06/2024 5:14 AM MACHINE ASSEMBLER SUPERVISOR us Edward Sauer MD LAB BLOOD ORDERABLES Final R esult [facility] [address] [facility] Department [place] [address] * TRANSTHORACIC ECHO (TTE) COMPLETE W DOPPLER/CF W CONTRAST (05/05/2024 10:40 AM MACHINE ASSEMBLER SUPERVISOR) Anatomical Region Laterality Modality Ultrasound 05/05/2024 9:59 AM MACHINE ASSEMBLER SUPERVISOR Narrative 05/06/2024 2:57 PM MACHINE ASSEMBLER SUPERVISOR ? Adult Echocardiogram + ----- + :Name: SHARRON HEADLEY, IIIStudy Date: 05/05/2024 ?Status: MHE ?: : ? Patient Location: MHE ICU^[id number]^MHHeight: 72 in ?: : ? Weight: 208 lbBP: 137/59 mmHg: :: 1985 ?Gender: Male ?BSA: 2.2 m2 ?: :Reason For Study: severe Chf ?: :Ordering Physician: ? : :DARBARI, GERALD ?: : ?: :Performed By: Razia ?: :Aryan, RDCS ?: + ----- + Procedure A two-dimensional transthoracic echocardiogram with color flow and Doppler was performed. A contrast injection of Definity was performed to improve assessment of LV function. Definity lot # is ' [id number] '. Left Ventricle LV seems mild to moderately dilated. There is normal left ventricular wall thickness. Ejection Fraction = 35-40%. Lots of foreshortninig Cannot comment on the wall motion with certainty. Right Ventricle The right ventricle is mildly dilated. There is normal right ventricular wall thickness. Nor well checked. Atria LA mild to moderate enlargement. The right atrium is moderately dilated. The interatrial septum is intact with no evidence for an atrial septal defect. Mitral Valve The mitral valve is normal. There is no mitral valve stenosis. Mild MR. Tricuspid Valve The tricuspid valve is normal. Mild TR. Right ventricular systolic pressure is elevated at 40-50mmHg. Aortic Valve The aortic valve is trileaflet. No aortic stenosis . Mild aortic regurgitation. Pulmonic Valve The pulmonic valve is not well visualized. Trace pulmonic valvular regurgitation. Great Vessels Aortic root size =' 4 'cm. IVC appears 'dilated' in size. With less than 50% collapse on inspiration. Pericardium There is no pericardial effusion. Interpretation Summary LV seems mild to moderately dilated LV not properly seen with lots of foreshortninig EF around 35-40% LA mild to moderate enlargement The mitral valve is normal. The tricuspid valve is normal. Mild MR Mild TR The aortic valve is trileaflet. Mild AR Aortic root size =' 4 'cm. IVC dilated With less than 50% collapse on inspiration + + :Measurements with Normals ?: : ?(0.6-1.2 ?LVIDd: ?(3.5-5.7 ?? Ao root diam: ?(2.0-3.7 ?? : :IVSd: 1.8 cmcm) ? 5.2 cm ?cm) ?4.8 cm ? cm) ?: :LVPWd: ?(0.6-1.1 ?LVIDs: ?(3.1-4.6 ?? LA dimension: ?(1.9-4.0 ?? : :2.0 cm ?cm) ? 3.5 cm ?cm) ?4.9 cm ? cm) ?: + + MMode/2D Measurements & Calculations FS: 31.5 % ? LVOT diam: 2.4 cm EDV(Teich): 127.8 ml ?Ao root area: 18.1 cm2 ESV(Teich): 52.3 ml ?LVOT area: 4.5 cm2 Doppler Measurements & Calculations MV E max manuel: ?MV dec time: ?Ao V2 max: ?LV V1 max P.0 cm/sec ? 0.14 sec ?178.0 cm/sec ?8.6 mmHg MV A max manuel: ?Ao max P.7 mmHgLV V1 mean P.7 cm/sec ?Ao V2 mean: ? 5.0 mmHg MV E/A: 2.1 ?119.0 cm/sec ?LV V1 max: ? Ao mean P.0 nrGf040.0 cm/sec ? Ao V2 VTI: 23.5 cm ??LV V1 mean: ? TJ(I,D): 4.2 cm2 ?? 96.1 cm/sec ? TJ(V,D): 3.7 cm2 ?? LV V1 VTI: 21.6 cm ? SV(LVOT): 97.7 ml ?PA V2 max: ?PI end-d manuel: ? RV V1 max: ? 84.7 cm/sec ? 152.0 cm/sec ?66.0 cm/sec ? PA max PG: ? 2.9 mmHg Electronically signed by: Gerald Lucas MD 05/06/2024 02:57 PM Procedure Note Gerald Lucas MD - 05/06/2024 Adult Echocardiogram + ----- + :Name: SHARRON HEADLEY, IIIStudy Date: 05/05/2024Status: SOURAV : : Patient Location: [facility]^[place] [address]^[id number]^Height: 72 in : : : 208 lbBP: 137/59 mmHg: :: 1985 Gender: MaleBSA: 2.2 m2 : :Reason For Study: severe Chf: :Ordering Physician:: :GERALD LUCAS: :: :Performed By: Razia: :JONATHAN Baeza: + ----- + Procedure A two-dimensional transthoracic echocardiogram with color flow and Dopplerwas performed. A contrast injection of Definity was performed to improve assessment of LV function. Definity lot # is ' [id number] '. Left Ventricle LV seems mild to moderately dilated. There is normal left ventricularwall thickness. Ejection Fraction = 35-40%. Lots of foreshortninig Cannot comment on the wall motion with certainty. Right Ventricle The right ventricle is mildly dilated. There is normal right ventricularwall thickness. Nor well checked. Atria LA mild to moderate enlargement. The right atrium is moderately dilated.The interatrial septum is intact with no evidence for an atrial septaldefect. Mitral Valve The mitral valve is normal. There is no mitral valve stenosis. Mild MR. Tricuspid Valve The tricuspid valve is normal. Mild TR. Right ventricular systolicpressure is elevated at 40-50mmHg. Aortic Valve The aortic valve is trileaflet. No aortic stenosis . Mild aortic regurgitation. Pulmonic Valve The pulmonic valve is not well visualized. Trace pulmonic valvular regurgitation. Great Vessels Aortic root size =' 4 'cm. IVC appears 'dilated' in size. With less than50% collapse on inspiration. Pericardium There is no pericardial effusion. Interpretation Summary LV seems mild to moderately dilated LV not properly seen with lots of foreshortninig EF around 35-40% LA mild to moderate enlargement The mitral valve is normal. The tricuspid valve is normal. Mild MR Mild TR The aortic valve is trileaflet. Mild AR Aortic root size =' 4 'cm. IVC dilated With less than 50% collapse on inspiration + + :Measurements with Normals: : (0.6-1.2 LVIDd: (3.5-5.7 Ao root diam:(2.0-3.7 : :IVSd: 1.8 cmcm) 5.2 cm cm) 4.8 cm cm): :LVPWd: (0.6-1.1 LVIDs: (3.1-4.6 LA dimension:(1.9-4.0 : :2.0 cm cm) 3.5 cm cm) 4.9 cm cm): + + MMode/2D Measurements & Calculations FS: 31.5 % LVOT diam: 2.4 cm EDV(Teich): 127.8 ml Ao root area: 18.1 cm2 ESV(Teich): 52.3 ml LVOT area: 4.5cm2 Doppler Measurements & Calculations MV E max manuel: MV dec time: Ao V2 max: LV V1 max P.0 cm/sec 0.14 sec 178.0 cm/sec 8.6 mmHg MV A max manuel: Ao max P.7 mmHgLV V1 meanP.7 cm/sec Ao V2 mean: 5.0 mmHg MV E/A: 2.1 119.0 cm/sec LV V1 max: Ao mean P.0 ctLs984.0 cm/sec Ao V2 VTI: 23.5 cm LV V1 mean: TJ(I,D): 4.2 cm2 96.1 cm/sec TJ(V,D): 3.7 cm2 LV V1 VTI: 21.6cm SV(LVOT): 97.7 ml PA V2 max: PI end-d manuel: RV V1 max: 84.7 cm/sec 152.0 cm/sec 66.0 cm/sec PA max P.9 mmHg Electronically signed by: Gerald Lucas MD 05/06/2024 02:57 PM us Gerald Lucas MD CV ECHO PROCEDURES Final Result * (ABNORMAL) eGFR (05/05/2024 1:45 AM MACHINE ASSEMBLER SUPERVISOR) eGFR 25(L) >=60 mL/min/1. 73 m2 Comment: Interpretive Data Reference Interval Normal ?>/= 90 mL/min/1.73m2 Mildly decreased* ? 60 - 89 mL/min/1.73m2 Mildly to moderately decreased ?45 - 59 mL/min/1.73m2 Moderately to severely decreased ??30 - 44 mL/min/1.73m2 Severely decreased ?15 - 29 mL/min/1.73m2 Kidney Failure ?< 15 ??mL/min/1.73m2 *Relative to young adult level Estimated glomerular filtration rate is determined by the 2020 CKD-EPI equation recommended by the National Kidney Foundation (A Unifying Approach to GFR Estimation: Recommendations of the NKF-ASK Task Force on Reassessing the Inclusion of Race in Diagnosing Kidney Disease, JASN 2020). The CKD-EPI equation should not be used for patients with unstable renal function and has not been validated in children and those over 70. Current interpretive data was last reviewed 2021. Testing performed by: [address] [address] Blood 05/05/2024 1:45 AM MACHINE ASSEMBLER SUPERVISOR 05/05/2024 2:48 AM MACHINE ASSEMBLER SUPERVISOR us Edward Sauer MD LAB BLOOD ORDERABLES Final R esult [facility] [address] [facility] Department [place] [address] * Differential, auto (05/05/2024 1:45 AM MACHINE ASSEMBLER SUPERVISOR) Neutrophil abs 5.2 1.5 - 6.5 K/cumm Comment:Testing performed by : [address] [address] Imm gran abs 0.0 0.0 - 0.1 K/cumm [facility] Comment:Testing performed by : [address] [address] Lymphocyte abs 1.4 0.8 - 3.3 K/cumm [facility] Comment:Testing performed by : [address] [address] Monocyte abs 0.7 0.2 - 0.8 K/cumm [facility] Comment:Testing performed by : [address] [place] [address] Eosinophil abs 0.2 0.0 - 0.5 K/cumm [facility] Comment:Testing performed by : [address] [address] Basophil abs 0.0 0.0 - 0.1 K/cumm [facility] Comment:Testing performed by : [address] [address] Neutrophil pct 68.6 % [facility] Comment: Interpretive Data Percent cell count reference ranges are not reported, since discordance with absolute values may lead to misinterpretation of CBC data. Current Interpretive Data was last revised on 2017. Testing performed by: [address] [address] Imm gran pct 0.5 % [facility] Comment: Interpretive Data Percent cell count reference ranges are not reported, since discordance with absolute values may lead to misinterpretation of CBC data. Current Interpretive Data was last revised on 2017. Testing performed by: [address] [address] Lymphocyte pct 18.6 % [facility] Comment: Interpretive Data Percent cell count reference ranges are not reported, since discordance with absolute values may lead to misinterpretation of CBC data. Current Interpretive Data was last revised on 2017. Testing performed by: [address] [address] Monocyte pct 8.9 % [facility] Comment: Interpretive Data Percent cell count reference ranges are not reported, since discordance with absolute values may lead to misinterpretation of CBC data. Current Interpretive Data was last revised on 2017. Testing performed by: [address] [address] Eosinophil pct 2.9 % [facility] Comment: Interpretive Data Percent cell count reference ranges are not reported, since discordance with absolute values may lead to misinterpretation of CBC data. Current Interpretive Data was last revised on 2017. Testing performed by: [address] [address] Basophil pct 0.5 % [facility] Comment: Interpretive Data Percent cell count reference ranges are not reported, since discordance with absolute values may lead to misinterpretation of CBC data. Current Interpretive Data was last revised on 2017. Testing performed by: [address] [address] Blood 05/05/2024 1:45 AM MACHINE ASSEMBLER SUPERVISOR 05/05/2024 2:48 AM MACHINE ASSEMBLER SUPERVISOR Amaury Lezama MD LAB BLOOD ORDERABL ES Final Result [facility] [address] [facility] Department [place] [address] * (ABNORMAL) CBC with auto differential (05/05/2024 1:45 AM MACHINE ASSEMBLER SUPERVISOR) WBC 7.6 3.8 - 9.9 K/cumm Comment:Testing performed by : [address] [address] Hgb 10.2(L) 13.0 - 17.5 g/dL [facility] Comment:Testing performed by : [address] [address] Hct 33.5(L) 38.9 - 50.3 % [facility] Comment:Testing performed by : [address] [address] Plt 319 150 - 400 K/cumm [facility] Comment:Testing performed by : [address] [address] MPV 9.9 9.1 - 12.3 fL [facility] Comment:Testing performed by : [address] [address] RBC 4.07(L) 4.30 - 5.80 M/cumm [facility] Comment:Testing performed by : [address] [address] MCV 82.3 81.3 - 96.4 fL [facility] Comment:Testing performed by : [address] [address] MCH 25.1(L) 27.1 - 33.3 pg [facility] Comment:Testing performed by : [address] [address] MCHC 30.4(L) 32.3 - 35.7 g/dL [facility] Comment:Testing performed by : [address] [address] RDW CV 17.0(H) 11.1 - 14.9 % [facility] Comment:Testing performed by : [address] [address] RDW SD 50.0(H) 35.7 - 48.1 fL [facility] Comment:Testing performed by : [address] [address] NRBC abs 0.00 0.00 - 0.01 K/cumm [facility] Comment:Testing performed by : [address], [address] Blood 05/05/2024 1:45 AM MACHINE ASSEMBLER SUPERVISOR 05/05/2024 2:48 AM MACHINE ASSEMBLER SUPERVISOR Amaury Lezama MD LAB BLOOD ORDERABL ES Final Result Performing Organization Address City/[facility]/ZIP Co de Phone Number [address] [employer] [place] [address] * Phosphorus (05/05/2024 1:45 AM MACHINE ASSEMBLER SUPERVISOR) [facility] Phosphorus, pl 3.1 2.3 - 4.5 mg/dL Comment:Testing performed by : [address], [address] Blood 05/05/2024 1:45 AM MACHINE ASSEMBLER SUPERVISOR 05/05/2024 2:48 AM MACHINE ASSEMBLER SUPERVISOR Amaury Lezama MD LAB BLOOD ORDERABL ES Final Result [address] [address] * Magnesium (05/05/2024 1:45 AM MACHINE ASSEMBLER SUPERVISOR) Pathologist [facility] Magnesium 1.8 1.4 - 2.5 mg/dL Comment:Testing performed by : [address] [address] Blood 05/05/2024 1:45 AM MACHINE ASSEMBLER SUPERVISOR 05/05/2024 2:48 AM MACHINE ASSEMBLER SUPERVISOR Amaury Lezama MD LAB BLOOD ORDERABL ES Final Result [facility] [address] [facility] Department [place] [address] * (ABNORMAL) Basic metabolic panel (05/05/2024 1:45 AM MACHINE ASSEMBLER SUPERVISOR) [facility] Sodium 134(L) 135 - 145 mmol/L Comment:Testing performed by : [address] [address] Potassium, pl 3.5 3.3 - 4.9 mmol/L [facility] Comment:Testing performed by : [address] [address] Chloride 95(L) 97 - 110 mmol/L [facility] Comment:Testing performed by : [address] [address] CO2 28 22 - 32 mmol/L [facility] Comment:Testing performed by : [address] [address] Anion gap 11 2 - 15 mmol/L [facility] Comment:Testing performed by : [address] [address] BUN 33(H) 6 - 25 mg/dL [facility] Comment:Testing performed by : [address] [address] Creatinine 3.10(H) 0.80 - 1.30 mg/dL [facility] Comment:Testing performed by : [address] [address] Glucose 108 70 - 199 mg/dL [facility] Comment: Interpretive Data Fasting glucose >/= 126 mg/dl is diagnostic for diabetes. ?? Fasting is defined as no caloric intake for at least 8 hours. Fasting glucose between 100 mg/dl to 125 mg/dl is diagnostic of prediabetes. In a patient with classic symptoms of hyperglycemia or hyperglycemic crisis, a random glucose >/= 200 mg/dl is diagnostic for diabetes. In the absence of unequivocal hyperglycemia, results should be confirmed by repeat testing. The classification and Diagnosis of Diabetes Diabetes Care 2021; 46: S19-S40. Current interpretive data was last revised 2022. Testing performed by: [facility], [address] [place] [address]., [address] Calcium 8.5 8.5 - 10.3 mg/dL [facility] Comment:Testing performed by : [address] [address] Blood 05/05/2024 1:45 AM MACHINE ASSEMBLER SUPERVISOR 05/05/2024 2:48 AM MACHINE ASSEMBLER SUPERVISOR us Edward Sauer MD LAB BLOOD ORDERABLES Final R esult Performing Organization Address [facility] Co de Phone Number [address] [employer] [place] [place] [address] * Volume and period, urine, 24 hour (05/04/2024 9:41 AM MACHINE ASSEMBLER SUPERVISOR) Volume, ur 7,725 mL Comment:Testing performed by : [address] [address] Period, Urine Collection 1,440 min [facility] Comment:Testing performed by : [address] [address] Urine 05/04/2024 9:41 AM MACHINE ASSEMBLER SUPERVISOR 05/04/2024 9:41 AM MACHINE ASSEMBLER SUPERVISOR us Amaury Lezama MD LAB URINE ORDERABL ES Final Result Performing Organization Address City/[facility] Co de Phone Number [address] [employer] [place] [place] [address] * (ABNORMAL) Metanephrines, urine, 24 hour (05/04/2024 8:45 AM MACHINE ASSEMBLER SUPERVISOR) Metanephrines, 24 hr ur 433(H) mcg/24H [facility] Comment: REFERENCE VALUE 44-261 (Normotensive) <400 (Hypertensive) Testing performed by: [facility], [address] [place] [address]., [address] Metanephrines Comment Not Reported [facility] Comment:Testing performed by : [facility], [address] [place] [address]., [address] Normetanephrine, 24 hour ur 1190(H) mcg/24H [facility] Comment: REFERENCE VALUE 119-451 (Normotensive) <900 (Hypertensive) Testing performed by: [facility], [address] [place] [address]., [address] Metanephrine, Total, 24 Hour Urine 1623(H) mcg/24H [facility] Comment: REFERENCE VALUE 211-646 (Normotensive) <1300 (Hypertensive) Testing performed by: [facility], [address] [place] [address]., [address] Urine 05/04/2024 8:45 AM MACHINE ASSEMBLER SUPERVISOR 05/04/2024 9:41 AM MACHINE ASSEMBLER SUPERVISOR us Amaury Lezama MD LAB URINE ORDERABL ES Final Result [facility] [address] [facility] Department [place] [address] [facility] * (ABNORMAL) eGFR (05/04/2024 3:45 AM MACHINE ASSEMBLER SUPERVISOR) eGFR 25(L) >=60 mL/min/1. 73 m2 Comment: Interpretive Data Reference Interval Normal ?>/= 90 mL/min/1.73m2 Mildly decreased* ? 60 - 89 mL/min/1.73m2 Mildly to moderately decreased ?45 - 59 mL/min/1.73m2 Moderately to severely decreased ??30 - 44 mL/min/1.73m2 Severely decreased ?15 - 29 mL/min/1.73m2 Kidney Failure ?< 15 ??mL/min/1.73m2 *Relative to young adult level Estimated glomerular filtration rate is determined by the 2020 CKD-EPI equation recommended by the National Kidney Foundation (A Unifying Approach to GFR Estimation: Recommendations of the NKF-ASK Task Force on Reassessing the Inclusion of Race in Diagnosing Kidney Disease, JASN 2020). The CKD-EPI equation should not be used for patients with unstable renal function and has not been validated in children and those over 70. Current interpretive data was last reviewed 2021. Testing performed by: [address] [address] Blood 05/04/2024 3:45 AM MACHINE ASSEMBLER SUPERVISOR 05/04/2024 4:46 AM MACHINE ASSEMBLER SUPERVISOR Amaury Lezama MD LAB BLOOD ORDERABL ES Final Result [facility] [address] [facility] Department [place] [address] * Differential, auto (05/04/2024 3:45 AM MACHINE ASSEMBLER SUPERVISOR) Neutrophil abs 5.0 1.5 - 6.5 K/cumm Comment:Testing performed by : [address] [address] Imm gran abs 0.0 0.0 - 0.1 K/cumm [facility] Comment:Testing performed by : [address] [address] Lymphocyte abs 1.5 0.8 - 3.3 K/cumm [facility] Comment:Testing performed by : [address] [address] Monocyte abs 0.6 0.2 - 0.8 K/cumm [facility] Comment:Testing performed by : [address] [address] Eosinophil abs 0.3 0.0 - 0.5 K/cumm [facility] Comment:Testing performed by : [address], [place]., [address] Basophil abs 0.0 0.0 - 0.1 K/cumm [facility] Comment:Testing performed by : [address] [address] Neutrophil pct 67.0 % [facility] Comment: Interpretive Data Percent cell count reference ranges are not reported, since discordance with absolute values may lead to misinterpretation of CBC data. Current Interpretive Data was last revised on 2017. Testing performed by: [address] [address] Imm gran pct 0.4 % [facility] Comment: Interpretive Data Percent cell count reference ranges are not reported, since discordance with absolute values may lead to misinterpretation of CBC data. Current Interpretive Data was last revised on 2017. Testing performed by: [address] [address] Lymphocyte pct 20.6 % [facility] Comment: Interpretive Data Percent cell count reference ranges are not reported, since discordance with absolute values may lead to misinterpretation of CBC data. Current Interpretive Data was last revised on 2017. Testing performed by: [address] [address] Monocyte pct 8.0 % [facility] Comment: Interpretive Data Percent cell count reference ranges are not reported, since discordance with absolute values may lead to misinterpretation of CBC data. Current Interpretive Data was last revised on 2017. Testing performed by: [address] [address] Eosinophil pct 3.5 % [facility] Comment: Interpretive Data Percent cell count reference ranges are not reported, since discordance with absolute values may lead to misinterpretation of CBC data. Current Interpretive Data was last revised on 2017. Testing performed by: [address] [address] Basophil pct 0.5 % [facility] Comment: Interpretive Data Percent cell count reference ranges are not reported, since discordance with absolute values may lead to misinterpretation of CBC data. Current Interpretive Data was last revised on 2017. Testing performed by: [address] [address] Blood 05/04/2024 3:45 AM MACHINE ASSEMBLER SUPERVISOR 05/04/2024 4:57 AM MACHINE ASSEMBLER SUPERVISOR Amaury Lezama MD LAB BLOOD ORDERABL ES Final Result [facility] [address] [facility] Department [place] [address] * (ABNORMAL) CBC with auto differential (05/04/2024 3:45 AM MACHINE ASSEMBLER SUPERVISOR) WBC 7.4 3.8 - 9.9 K/cumm Comment:Testing performed by : [address] [address] Hgb 9.5(L) 13.0 - 17.5 g/dL [facility] SNIDER Comment:Testing performed by : [address] [address] Hct 30.6(L) 38.9 - 50.3 % [facility] SNIDER Comment:Testing performed by : [address] [address] Plt 334 150 - 400 K/cumm [facility] SNIDER Comment:Testing performed by : [address] [address] MPV 10.1 9.1 - 12.3 fL [facility] SNIDER Comment:Testing performed by : [address] [address] RBC 3.79(L) 4.30 - 5.80 M/cumm [facility] SNIDER Comment:Testing performed by : [facility], [address] [place] [address]., [address] MCV 80.7(L) 81.3 - 96.4 fL [facility]VI Comment:Testing performed by : [address] [address] MCH 25.1(L) 27.1 - 33.3 pg [facility] Comment:Testing performed by : [address] [address] MCHC 31.0(L) 32.3 - 35.7 g/dL [facility] Comment:Testing performed by : [address] [address] RDW CV 16.7(H) 11.1 - 14.9 % [facility]VI Comment:Testing performed by : [address] [address] RDW SD 48.8(H) 35.7 - 48.1 fL [facility] Comment:Testing performed by : [address] [address] NRBC abs 0.00 0.00 - 0.01 K/cumm [facility] Comment:Testing performed by : [address] [address] Blood 05/04/2024 3:45 AM MACHINE ASSEMBLER SUPERVISOR 05/04/2024 4:57 AM MACHINE ASSEMBLER SUPERVISOR Amaury Lezama MD LAB BLOOD ORDERABL ES Final Result [facility] [address] [facility] Department [place] [address] * Phosphorus (05/04/2024 3:45 AM MACHINE ASSEMBLER SUPERVISOR) Phosphorus, pl 3.1 2.3 - 4.5 mg/dL Comment:Testing performed by : [address] [address] Blood 05/04/2024 3:45 AM MACHINE ASSEMBLER SUPERVISOR 05/04/2024 4:46 AM MACHINE ASSEMBLER SUPERVISOR Amaury Lezama MD LAB BLOOD ORDERABL ES Final Result Performing Organization Address [facility] Co de Phone Number [address] [address] * Magnesium (05/04/2024 3:45 AM MACHINE ASSEMBLER SUPERVISOR) Magnesium 1.9 1.4 - 2.5 mg/dL Comment:Testing performed by : [address] [address] Blood 05/04/2024 3:45 AM MACHINE ASSEMBLER SUPERVISOR 05/04/2024 4:46 AM MACHINE ASSEMBLER SUPERVISOR Amaury Lezama MD LAB BLOOD ORDERABL ES Final Result Performing Organization Address [facility] de Phone Number [address] [address] * (ABNORMAL) Basic metabolic panel (05/04/2024 3:45 AM MACHINE ASSEMBLER SUPERVISOR) Pathologist [facility] Sodium 136 135 - 145 mmol/L Comment:Testing performed by : [address] [address] Potassium, pl 3.6 3.3 - 4.9 mmol/L [facility] Comment:Testing performed by : [address] [address] Chloride 97 97 - 110 mmol/L [facility] Comment:Testing performed by : [address] [address] CO2 28 22 - 32 mmol/L [facility] Comment:Testing performed by : [address] [address] Anion gap 11 2 - 15 mmol/L [facility] Comment:Testing performed by : [address] [address] BUN 33(H) 6 - 25 mg/dL [facility] Comment:Testing performed by : [address] [address] Creatinine 3.10(H) 0.80 - 1.30 mg/dL [facility] Comment:Testing performed by : [address] [address] Glucose 93 70 - 199 mg/dL [facility] Comment: Interpretive Data Fasting glucose >/= 126 mg/dl is diagnostic for diabetes. ?? Fasting is defined as no caloric intake for at least 8 hours. Fasting glucose between 100 mg/dl to 125 mg/dl is diagnostic of prediabetes. In a patient with classic symptoms of hyperglycemia or hyperglycemic crisis, a random glucose >/= 200 mg/dl is diagnostic for diabetes. In the absence of unequivocal hyperglycemia, results should be confirmed by repeat testing. The classification and Diagnosis of Diabetes Diabetes Care 2021; 46: S19-S40. Current interpretive data was last revised 2022. Testing performed by: [address] [address] Calcium 8.5 8.5 - 10.3 mg/dL [facility] Comment:Testing performed by : [address] [address] Blood 05/04/2024 3:45 AM MACHINE ASSEMBLER SUPERVISOR 05/04/2024 4:46 AM MACHINE ASSEMBLER SUPERVISOR Amaury Lezama MD LAB BLOOD ORDERABL ES Final Result Performing Organization Address City/State/[facility] Co de Phone Number [facility] [address] [facility] Department of Laboratories [place], [place] [id number] * US Renal Doppler (05/03/2024 9:40 AM MACHINE ASSEMBLER SUPERVISOR) Anatomical Region Laterality Modality Vascular N/A Ultrasound 05/03/2024 Narrative 05/07/2024 6:55 AM MACHINE ASSEMBLER SUPERVISOR [employer] Job ID: [id number] [employer] Document ID: [id number] Dictated date/time: [id number] BILATERAL RENAL DOPPLER REASON FOR EXAM FMD. FINDINGS ON THE STUDY The aortic peak systolic velocity is 71 cm/sec. ??Right renal velocities are 55, 57, 50. ??Right kidney measures 10.8 cm. ??The right renal aortic ratio 0.8. ??Findings for the left renal velocities are 52, 47, 95. ??Left kidney measures 10.6 cm. ??The left renal aortic ratio is 1.3. INTERPRETATION No evidence of renal artery stenosis bilaterally. Job ID/Internal Job ID: ??[id number] Amaury Lezama MD IMG US PROCEDURES Final Result * US Kidney Complete (aka RENAL) (05/03/2024 7:27 AM MACHINE ASSEMBLER SUPERVISOR) Anatomical Region Laterality Modality Kidney N/A Ultrasound 05/03/2024 8:00 AM MACHINE ASSEMBLER SUPERVISOR Narrative 05/03/2024 8:01 AM MACHINE ASSEMBLER SUPERVISOR EXAM DESCRIPTION: US KIDNEY COMPLETE REASON FOR STUDY: Acute kidney injury, elevated BUN and creatinine for 2 weeks. TECHNIQUE: Ultrasound of the kidneys and urinary bladder was performed with grayscale imaging. COMPARISON: None. FINDINGS: RIGHT KIDNEY: The right kidney measures ??11.2 cm in length. ??There is no hydronephrosis. There is normal cortical thickness and markedly increased echogenicity. LEFT KIDNEY: The left kidney measures ??10.8 cm in length. ??There is no hydronephrosis. There is normal cortical thickness and markedly increased echogenicity. URINARY BLADDER: ?? The urinary bladder, as visualized, appears unremarkable. The bilateral ureteral jets are visualized. OTHER: ?? No other additional findings. IMPRESSION: 1. ?? Markedly echogenic kidneys evidence of medical renal disease. 2. ?? No evidence of an acute abnormality. THIS IS AN ELECTRONICALLY VERIFIED FINAL REPORT 05/03/2024 8:01 AM - Electronically signed by ??Jaskaran Tobin M.D. CH: D: ??05/03/2024 8:01 AM T: ??05/03/2024 8:01 AM Report ID: [id number] Reading Location: ??[id number] Procedure Note Jaskaran Tobin Jr., MD - 05/03/2024 EXAM DESCRIPTION: US KIDNEY COMPLETE REASON FOR STUDY: Acute kidney injury, elevated BUN and creatinine for 2 weeks. TECHNIQUE: Ultrasound of the kidneys and urinary bladder was performedwith grayscale imaging. COMPARISON: None. FINDINGS: RIGHT KIDNEY: The right kidney measures 11.2 cm in length.There is no hydronephrosis. There is normal cortical thickness and markedly increased echogenicity. LEFT KIDNEY: The left kidney measures 10.8 cm in length. There is no hydronephrosis. There is normal cortical thickness and markedly increased echogenicity. URINARY BLADDER: The urinary bladder, as visualized, appearsunremarkable. The bilateral ureteral jets are visualized. OTHER: No other additional findings. IMPRESSION: 1. Markedly echogenic kidneys evidence of medical renal disease. 2. No evidence of an acute abnormality. THIS IS AN ELECTRONICALLY VERIFIED FINAL REPORT 05/03/2024 8:01 AM - Electronically signed by Jaskaran Tobin M.D. CH: LINDSEY Report ID: [id number] Reading Location: [place] [address] us Amaury Johana Lezama MD IMG US PROCEDURES Final Result * (ABNORMAL) eGFR (05/03/2024 5:28 AM MACHINE ASSEMBLER SUPERVISOR) eGFR 24(L) >=60 mL/min/1. 73 m2 Comment: Interpretive Data Reference Interval Normal ?>/= 90 mL/min/1.73m2 Mildly decreased* ? 60 - 89 mL/min/1.73m2 Mildly to moderately decreased ?45 - 59 mL/min/1.73m2 Moderately to severely decreased ??30 - 44 mL/min/1.73m2 Severely decreased ?15 - 29 mL/min/1.73m2 Kidney Failure ?< 15 ??mL/min/1.73m2 *Relative to young adult level Estimated glomerular filtration rate is determined by the 2020 CKD-EPI equation recommended by the National Kidney Foundation (A Unifying Approach to GFR Estimation: Recommendations of the NKF-ASK Task Force on Reassessing the Inclusion of Race in Diagnosing Kidney Disease, JASN 202). The CKD-EPI equation should not be used for patients with unstable renal function and has not been validated in children and those over 70. Current interpretive data was last reviewed 2021. Testing performed by: [address] [address] Blood 05/03/2024 5:28 AM MACHINE ASSEMBLER SUPERVISOR 05/03/2024 5:35 AM MACHINE ASSEMBLER SUPERVISOR us Timmy Hernandez MD LAB BLOOD ORDERABLES Final Result [facility] [address] [facility] Department [place] [address] * Differential, auto (05/03/2024 5:28 AM MACHINE ASSEMBLER SUPERVISOR) Neutrophil abs 4.5 1.5 - 6.5 K/cumm Comment:Testing performed by : [address] [address] Imm gran abs 0.0 0.0 - 0.1 K/cumm [facility] Comment:Testing performed by : [address] [address] Lymphocyte abs 1.4 0.8 - 3.3 K/cumm [facility] Comment:Testing performed by : [address] [address] Monocyte abs 0.4 0.2 - 0.8 K/cumm [facility] Comment:Testing performed by : [address] [address] Eosinophil abs 0.2 0.0 - 0.5 K/cumm [facility] Comment:Testing performed by : [address] [address] Basophil abs 0.0 0.0 - 0.1 K/cumm [facility] Comment:Testing performed by : [address] [address] Neutrophil pct 68.6 % [facility] Comment: Interpretive Data Percent cell count reference ranges are not reported, since discordance with absolute values may lead to misinterpretation of CBC data. Current Interpretive Data was last revised on 2017. Testing performed by: [address] [address] Imm gran pct 0.3 % [facility] Comment: Interpretive Data Percent cell count reference ranges are not reported, since discordance with absolute values may lead to misinterpretation of CBC data. Current Interpretive Data was last revised on 2017. Testing performed by: [address] [address] Lymphocyte pct 21.3 % [facility] Comment: Interpretive Data Percent cell count reference ranges are not reported, since discordance with absolute values may lead to misinterpretation of CBC data. Current Interpretive Data was last revised on 2017. Testing performed by: [address] [address] Monocyte pct 6.2 % [facility] Comment: Interpretive Data Percent cell count reference ranges are not reported, since discordance with absolute values may lead to misinterpretation of CBC data. Current Interpretive Data was last revised on 2017. Testing performed by: [address] [address] Eosinophil pct 3.0 % [facility] Comment: Interpretive Data Percent cell count reference ranges are not reported, since discordance with absolute values may lead to misinterpretation of CBC data. Current Interpretive Data was last revised on 2017. Testing performed by: [address] [address] Basophil pct 0.6 % [facility] Comment: Interpretive Data Percent cell count reference ranges are not reported, since discordance with absolute values may lead to misinterpretation of CBC data. Current Interpretive Data was last revised on 2017. Testing performed by: [address] [address] Blood 05/03/2024 5:28 AM MACHINE ASSEMBLER SUPERVISOR 05/03/2024 5:35 AM MACHINE ASSEMBLER SUPERVISOR Timmy Hernandez MD LAB BLOOD ORDERABLES Final Result [facility] [address] [facility] Department [place] [address] * (ABNORMAL) CBC with auto differential (05/03/2024 5:28 AM MACHINE ASSEMBLER SUPERVISOR) [facility] Signature WBC 6.6 3.8 - 9.9 K/cumm Comment:Testing performed by : [address] [address] Hgb 9.1(L) 13.0 - 17.5 g/dL [facility] Comment:Testing performed by : [address] [address] Hct 29.7(L) 38.9 - 50.3 % [facility] Comment:Testing performed by : [address] [address] Plt 304 150 - 400 K/cumm [facility] Comment:Testing performed by : [address] [address] MPV 9.1 9.1 - 12.3 fL [facility] Comment:Testing performed by : [address] [address] RBC 3.70(L) 4.30 - 5.80 M/cumm [facility] Comment:Testing performed by : [address] [address] MCV 80.3(L) 81.3 - 96.4 fL [facility] Comment:Testing performed by : [address] [address] MCH 24.6(L) 27.1 - 33.3 pg [facility] Comment:Testing performed by : [address] [address] MCHC 30.6(L) 32.3 - 35.7 g/dL [facility] Comment:Testing performed by : [address] [address] RDW CV 16.6(H) 11.1 - 14.9 % [facility] Comment:Testing performed by : [address] [address] RDW SD 48.3(H) 35.7 - 48.1 fL [facility] SNIDER Comment:Testing performed by : [address] [address] NRBC abs 0.00 0.00 - 0.01 K/cumm [facility] SNIDER Comment:Testing performed by : [address] [address] Blood 05/03/2024 5:28 AM MACHINE ASSEMBLER SUPERVISOR 05/03/2024 5:35 AM MACHINE ASSEMBLER SUPERVISOR Timmy Hernandez MD LAB BLOOD ORDERABLES Final Result Performing Organization Address City/[facility] Co de Phone Number [address] [address] * Phosphorus (05/03/2024 5:28 AM MACHINE ASSEMBLER SUPERVISOR) Phosphorus, pl 3.4 2.3 - 4.5 mg/dL Comment:Testing performed by : [address] [address] Blood 05/03/2024 5:28 AM MACHINE ASSEMBLER SUPERVISOR 05/03/2024 5:35 AM MACHINE ASSEMBLER SUPERVISOR Timmy Hernandez MD LAB BLOOD ORDERABLES Final Result Performing Organization Address [facility] Co de Phone Number [address] [place] [place] [address] * Magnesium (05/03/2024 5:28 AM MACHINE ASSEMBLER SUPERVISOR) Magnesium 2.1 1.4 - 2.5 mg/dL Comment:Testing performed by : [address] [address] Blood 05/03/2024 5:28 AM MACHINE ASSEMBLER SUPERVISOR 05/03/2024 5:35 AM MACHINE ASSEMBLER SUPERVISOR us Timmy Hernandez MD LAB BLOOD ORDERABLES Final Result Performing Organization Address City/[facility]/ZIP Co de Phone Number [address] [place] [place] [address] * (ABNORMAL) Comprehensive metabolic panel (05/03/2024 5:28 AM MACHINE ASSEMBLER SUPERVISOR) Sodium 132(L) 135 - 145 mmol/L Comment:Testing performed by : [address] [address] Potassium, pl 3.3 3.3 - 4.9 mmol/L [facility] Comment:Testing performed by : [address] [address] Chloride 95(L) 97 - 110 mmol/L [facility] Comment:Testing performed by : [address] [address] CO2 27 22 - 32 mmol/L [facility] Comment:Testing performed by : [address] [address] Anion gap 10 2 - 15 mmol/L [facility] Comment:Testing performed by : [address] [address] BUN 38(H) 6 - 25 mg/dL [facility] Comment:Testing performed by : [address] [address] Creatinine 3.20(H) 0.80 - 1.30 mg/dL [facility] Comment:Testing performed by : [address] [address] Glucose 122 70 - 199 mg/dL [facility] Comment: Interpretive Data Fasting glucose >/= 126 mg/dl is diagnostic for diabetes. ?? Fasting is defined as no caloric intake for at least 8 hours. Fasting glucose between 100 mg/dl to 125 mg/dl is diagnostic of prediabetes. In a patient with classic symptoms of hyperglycemia or hyperglycemic crisis, a random glucose >/= 200 mg/dl is diagnostic for diabetes. In the absence of unequivocal hyperglycemia, results should be confirmed by repeat testing. The classification and Diagnosis of Diabetes Diabetes Care 202; 46: S19-S40. Current interpretive data was last revised 2022. Testing performed by: [address] [address] Calcium 8.0(L) 8.5 - 10.3 mg/dL [facility] Comment:Testing performed by : [address] [address] Bilirubin, total 0.5 0.1 - 1.2 mg/dL [facility] Comment:Testing performed by : [address] [address] Protein, pl 6.5 6.5 - 8.5 g/dL [facility] Comment:Testing performed by : [address] [address] Albumin 3.0(L) 3.5 - 5.0 g/dL [facility] Comment:Testing performed by : [address] [address] Alk phos 78 40 - 130 Units/L [facility] Comment:Testing performed by : [address] [address] ALT 35 7 - 55 Units/L [facility] Comment:Testing performed by : [address] [address] AST 24 10 - 50 Units/L [facility] Comment:Testing performed by : [address] [address] Blood 05/03/2024 5:28 AM MACHINE ASSEMBLER SUPERVISOR 05/03/2024 5:35 AM MACHINE ASSEMBLER SUPERVISOR us Timmy Hernandez MD LAB BLOOD ORDERABLES Final Result [facility] [address] [facility] Department [place] [address] * (ABNORMAL) Protein / creatinine ratio, urine, random (05/02/2024 5:41 PM MACHINE ASSEMBLER SUPERVISOR) Protein, ur, quant 75.0 mg/dL Comment: Interpretive Data No reference range established. Current interpretive data was last revised 2018. Testing performed by: [address] [address] Creatinine Ur 60.1 mg/dL [facility] Comment: Interpretive Data No reference range established. Current interpretive data was last revised 2018. Testing performed by: [facility], [address] [place] [address]., [address] Protein/creatinin e ratio 1,247.9(H ) 0.0 - 180.0 mg/g CR [facility] SN[facility]ER Comment:Testing performed by : [facility], [address] [place] [address]., [address] Urine 05/02/2024 5:41 PM MACHINE ASSEMBLER SUPERVISOR 05/02/2024 5:52 PM MACHINE ASSEMBLER SUPERVISOR us Amaury Lezama MD LAB URINE ORDERABL ES Final Result [facility] [address] [facility] Department [place] [address] * (ABNORMAL) eGFR (05/02/2024 4:21 PM MACHINE ASSEMBLER SUPERVISOR) eGFR 22(L) >=60 mL/min/1. 73 m2 Comment: Interpretive Data Reference Interval Normal ?>/= 90 mL/min/1.73m2 Mildly decreased* ? 60 - 89 mL/min/1.73m2 Mildly to moderately decreased ?45 - 59 mL/min/1.73m2 Moderately to severely decreased ??30 - 44 mL/min/1.73m2 Severely decreased ?15 - 29 mL/min/1.73m2 Kidney Failure ?< 15 ??mL/min/1.73m2 *Relative to young adult level Estimated glomerular filtration rate is determined by the 2020 CKD-EPI equation recommended by the National Kidney Foundation (A Unifying Approach to GFR Estimation: Recommendations of the NKF-ASK Task Force on Reassessing the Inclusion of Race in Diagnosing Kidney Disease, JASN 2020). The CKD-EPI equation should not be used for patients with unstable renal function and has not been validated in children and those over 70. Current interpretive data was last reviewed 2021. Testing performed by: [address] [address] Blood 05/02/2024 4:21 PM MACHINE ASSEMBLER SUPERVISOR 05/02/2024 4:45 PM MACHINE ASSEMBLER SUPERVISOR Rosa Sofia MD LAB BLOOD ORDERABLES Abigail l Result Performing Organization Address [facility] de Phone Number [facility] [address] [place] [address] * (ABNORMAL) Metanephrines, fractionated free, blood (05/02/2024 4:21 PM MACHINE ASSEMBLER SUPERVISOR) Metanephrines 0.47 <0.50 nmol/L [place] ref Lab Comment: ADDITIONAL INFORMATION This test was developed and its performance characteristics determined by [facility] in a manner consistent with CLIA requirements. This test has not been cleared or approved by the U.S. Food and Drug Administration. Test Performed by: [facility] [place] [address] Licensed Appraiser: Darian Koo Ph.D.; CLIA# [id number] Testing performed by: [address] [address] Normetanephrines 1.4(H) <0.90 nmol/L [facility] Comment:Testing performed by : [address] [address] Blood 05/02/2024 4:21 PM MACHINE ASSEMBLER SUPERVISOR 05/02/2024 4:45 PM MACHINE ASSEMBLER SUPERVISOR Amaury Lezama MD LAB BLOOD ORDERABL ES Final Result Performing Organization Address [facility] Co de Phone Number [facility] [employer] [place] [place] [address] [place] ref Lab * Renin activity (05/02/2024 4:21 PM MACHINE ASSEMBLER SUPERVISOR) Pathologist [facility] Renin 15 ng/mL/H [place] ref Lab Comment: REFERENCE VALUE (Peripheral vein specimen) Na-deplete, upright: ??Mean: 5.9 ??Range: 2.9-10.8 Na-replete, upright: ??Mean: 1.0 ??Range: < or =0.6-3.0 ADDITIONAL INFORMATION Testing performed by Liquid Chromatography-Tandem Mass Spectrometry (LC-MS/MS). This test was developed and its performance characteristics determined by [facility] in a manner consistent with CLIA requirements. This test has not been cleared or approved by the U.S. Food and Drug Administration. Test Performed by: [facility] [address] [address] Licensed Appraiser: Darian Koo Ph.D.; CLIA# [id number] Testing performed by: [facility], [address] [place] [address]., [address] Blood 05/02/2024 4:21 PM MACHINE ASSEMBLER SUPERVISOR 05/02/2024 4:24 PM MACHINE ASSEMBLER SUPERVISOR Amaury Lezama MD LAB BLOOD ORDERABL ES Final Result [facility] [address] [facility] Department [place] [address] [place] ref Lab * HIV 1/2 Antibody plus p24 Antigen Blood (05/02/2024 4:21 PM MACHINE ASSEMBLER SUPERVISOR) [facility] HIV 1/2 ab + p24 ag Nonreactive Nonreactive Comment:Nonreactive for HIV- 1 antigen and HIV-1/HIV-2 antibodies. No laboratory evidence of HIV infection. If acute HIV infection is suspected, consider testing for HIV-1 RNA. Current interpretive data was last revised on 22. Blood 05/02/2024 4:2 1 PM MACHINE ASSEMBLER SUPERVISOR 05/02/2024 6:24 PM MACHINE ASSEMBLER SUPERVISOR Amaury Lezama MD LAB MICROBIOLOGY - GENERAL ORDERABLES Final Result Performing Organization Address [facility] Co de Phone Number [facility] [address] [address] * Aldosterone (05/02/2024 4:21 PM MACHINE ASSEMBLER SUPERVISOR) Aldosterone 15 <=21 ng/dL [place] ref Lab Comment: ADDITIONAL INFORMATION Reference range for patients 11 years and older is based on upright A.M. collection from subjects without sodium restrictions. This test was developed and its performance characteristics determined by [facility] in a manner consistent with CLIA requirements. This test has not been cleared or approved by the U.S. Food and Drug Administration. Test Performed by: [facility] - [place] [id number] [place] [address] Licensed Appraiser: Darian Koo Ph.D.; CLIA# [id number] Testing performed by: [address] [address] Blood 05/02/2024 4:21 PM MACHINE ASSEMBLER SUPERVISOR 05/02/2024 4:45 PM MACHINE ASSEMBLER SUPERVISOR Amaury Lezama MD LAB BLOOD ORDERABL ES Final Result Performing Organization Address [facility] de Phone Number [facility] [address] [place] [address] [place] ref Lab * (ABNORMAL) Erythrocyte sedimentation rate (05/02/2024 4:21 PM MACHINE ASSEMBLER SUPERVISOR) Pathologist [facility] Erythrocyte sedimentation rate 61(H) 1 - 15 mm/hr Comment:Testing performed by : [address] [address] Blood 05/02/2024 4:21 PM MACHINE ASSEMBLER SUPERVISOR 05/02/2024 4:45 PM MACHINE ASSEMBLER SUPERVISOR Amaury Lezama MD LAB BLOOD ORDERABL ES Final Result Performing Organization Address [facility] Co de Phone Number [facility] [address] [facility] [employer] [place] [employer] [place] [address] * (ABNORMAL) D-dimer, quantitative (05/02/2024 4:21 PM MACHINE ASSEMBLER SUPERVISOR) D-Dimer 880(H) <=499 ng/mL FEU Comment: Interpretive data FDA approved the D-dimer, in conjunction with a low or moderate pretest probability score, to exclude venous thromboembolic events (VTE) (PE and DVT) in outpatients when the D-dimer result is < 500 ng/ml FEU. ?? Evidence supports using an age-adjusted D-dimer cut-off for outpatients older than 50 (age x 10) to improve specificity without sacrificing sensitivity. Example: age 68, VTE cut-off 680 ng/ml FEU. References; Moo HT et al. Brit Med J. 2013;346:f2492. Ashley et al. Annals Int Med. 2015;163:701-11. Current interpretive data was last revised on 2019. Testing performed by: [address] [address] Blood 05/02/2024 4:21 PM MACHINE ASSEMBLER SUPERVISOR 05/02/2024 4:45 PM MACHINE ASSEMBLER SUPERVISOR Amaury Lezama MD LAB BLOOD ORDERABL ES Final Result Performing Organization Address [facility] Co de Phone Number ELVI [facility]0 [facility] [employer] [place] [employer] [place] [address] * CRP (acute phase) (05/02/2024 4:21 PM MACHINE ASSEMBLER SUPERVISOR) CRP 5.0 <=10.0 mg/L Comment:Testing performed by : [address] [address] Blood 05/02/2024 4:21 PM MACHINE ASSEMBLER SUPERVISOR 05/02/2024 4:45 PM MACHINE ASSEMBLER SUPERVISOR Amaury Lezama MD LAB BLOOD ORDERABL ES Final Result Performing Organization Address [facility] de Phone Number [address] [place] [employer] [place] [address] * Magnesium (05/02/2024 4:21 PM MACHINE ASSEMBLER SUPERVISOR) Pathologist [facility] Magnesium 1.8 1.4 - 2.5 mg/dL Comment:Testing performed by : [address] [address] Blood 05/02/2024 4:21 PM MACHINE ASSEMBLER SUPERVISOR 05/02/2024 4:45 PM MACHINE ASSEMBLER SUPERVISOR Rosa Sofia MD LAB BLOOD ORDERABLES Abigail l Result Performing Organization Address [facility] de Phone Number [address] [place] [place] [address] * Cortisol (05/02/2024 4:21 PM MACHINE ASSEMBLER SUPERVISOR) Pathologist [facility] Cortisol 12.5 4.8 - 19.5 mcg/dl Blood 05/02/2024 4:21 PM MACHINE ASSEMBLER SUPERVISOR 05/02/2024 6:24 PM MACHINE ASSEMBLER SUPERVISOR Amaury Lezama MD LAB BLOOD ORDERABL ES Final Result Performing Organization Address [facility] de Phone Number [address] [place] [place] [address] * (ABNORMAL) Basic metabolic panel (05/02/2024 4:21 PM MACHINE ASSEMBLER SUPERVISOR) Pathologist [facility] Sodium 136 135 - 145 mmol/L Comment:Testing performed by : [address] [address] Potassium, pl 3.4 3.3 - 4.9 mmol/L ELVI Comment:Testing performed by : [address] [address] Chloride 97 97 - 110 mmol/L ELVI Comment:Testing performed by : [address] [address] CO2 26 22 - 32 mmol/L ELVI Comment:Testing performed by : [address] [address] Anion gap 13 2 - 15 mmol/L ELVI Comment:Testing performed by : [address] [address] BUN 39(H) 6 - 25 mg/dL ELVI Comment:Testing performed by : [address] [address] Creatinine 3.40(H) 0.80 - 1.30 mg/dL ELVI Comment:Testing performed by : [address] [address] Glucose 122 70 - 199 mg/dL ELVI Comment: Interpretive Data Fasting glucose >/= 126 mg/dl is diagnostic for diabetes. ?? Fasting is defined as no caloric intake for at least 8 hours. Fasting glucose between 100 mg/dl to 125 mg/dl is diagnostic of prediabetes. In a patient with classic symptoms of hyperglycemia or hyperglycemic crisis, a random glucose >/= 200 mg/dl is diagnostic for diabetes. In the absence of unequivocal hyperglycemia, results should be confirmed by repeat testing. The classification and Diagnosis of Diabetes Diabetes Care 202; 46: S19-S40. Current interpretive data was last revised 2022. Testing performed by: [address] [address] Calcium 8.2(L) 8.5 - 10.3 mg/dL ELVI Comment:Testing performed by : [address] [address] Blood 05/02/2024 4:21 PM MACHINE ASSEMBLER SUPERVISOR 05/02/2024 4:45 PM MACHINE ASSEMBLER SUPERVISOR Rosa Sofia MD LAB BLOOD ORDERABLES Abigail soria Result ELVI [address] [facility] Department of Laboratories [place], [place] [id number] * (ABNORMAL) Troponin T high-sensitivity 6-hour (05/02/2024 10:58 AM MACHINE ASSEMBLER SUPERVISOR) Trop T hs 89(H) <=22 ng/L Comment: Interpretive Data For further hscTnT resources including the diagnostic algorithm and an aid in interpretation, copy and paste this link: https://nrl.testcatalog.org/show/hsTrop Current Interpretive Data last revised 2020. Testing performed by: [facility], [address] [place] [address]., [address] Trop T hs pct delta -15 % ELVI SNIDER Comment:Testing performed by : [address] [address] Trop T hs interp Equivocal ELVI SNIDER Comment:Testing performed by : [facility], [address] [place] [address], [place]., [address] Blood 05/02/2024 10:5 8 AM MACHINE ASSEMBLER SUPERVISOR 05/02/2024 11:03 AM MACHINE ASSEMBLER SUPERVISOR Alfred Thompson DO LAB BLOOD ORDERABLES Final Result [facility] [address] [facility] Department [place] [address] * Critical Care (05/02/2024 10:19 AM MACHINE ASSEMBLER SUPERVISOR) Narrative Rosa Sofia MD - 05/02/2024 10:19 AM MACHINE ASSEMBLER SUPERVISOR Rosa Sofia MD ? 05/02/2024 ??4:59 PM Critical Care Performed by: Rosa Sofia MD Authorized by: Rosa Sofia MD ?? CRITICAL CARE: ??Team: ??EICU ??Shift: ??AM ??Level of Billing: ??Initial Hospital Visit Level 3 ??My time spent with this patient was 60 minutes: Critical Provider Statement: I have seen and examined the patient on this day of service. I have reviewed and confirmed the history, physical exam, laboratory, and radiographic data as documented in the ICU note. I have reviewed and discussed my treatment plan with the patient's team and other medical/solutions sales consultant staff. This time was in addition to and separate from care provided by other practitioners on this day of service. ?? Rosa Sofia MD IN CLINIC/BEDSIDE ORDERAB LES Final Result * (ABNORMAL) Troponin T high-sensitivity 4-hour (05/02/2024 8:13 AM MACHINE ASSEMBLER SUPERVISOR) Trop T hs 90(H) <=22 ng/L Comment: Interpretive Data For further hscTnT resources including the diagnostic algorithm and an aid in interpretation, copy and paste this link: https://nrl.testcatalog.org/show/hsTrop Current Interpretive Data last revised 2020. Testing performed by: [address] [address] Trop T hs pct delta -14 % ELVI Comment:Testing performed by : [address] [address] Trop T hs interp Equivocal ELVI Comment:Testing performed by : [address] [address] Blood 05/02/2024 8:13 AM MACHINE ASSEMBLER SUPERVISOR 05/02/2024 8:18 AM MACHINE ASSEMBLER SUPERVISOR Alfred Thompson DO LAB BLOOD ORDERABLES Final Result Performing Organization Address City/[facility]/ZIP Co de Phone Number [address] [employer] [place] [place] [address] * Folate (05/02/2024 7:59 AM MACHINE ASSEMBLER SUPERVISOR) Folic acid 9.4 >=5.0 ng/mL Comment:Testing performed by : [address] [address] Blood 05/02/2024 7:59 AM MACHINE ASSEMBLER SUPERVISOR 05/02/2024 8:18 AM MACHINE ASSEMBLER SUPERVISOR Amaury Lezama MD LAB BLOOD ORDERABL ES Final Result [address] [employer] [place] [place] [address] * Vitamin B12 (05/02/2024 7:59 AM MACHINE ASSEMBLER SUPERVISOR) Vitamin B12 721 230 - 1,250 pg/mL Comment:Testing performed by : [address] [address] Blood 05/02/2024 7:59 AM MACHINE ASSEMBLER SUPERVISOR 05/02/2024 8:18 AM MACHINE ASSEMBLER SUPERVISOR Amaury Lezama MD LAB BLOOD ORDERABL ES Final Result [facility] [address] [facility] Department [place] [address] * Drugs of Abuse Screen, Urine with Reflex Confirmation (05/02/2024 7:51 AM MACHINE ASSEMBLER SUPERVISOR) Amphetamine, ur Not Detected CutOff 500ng/mL Comment: Interpretive Data - Amphetamines: ??Samples containing greater than 500 ng/mL d-methamphetamine ??or other cross-reacting amphetamine compounds are reported as positive. ??Amphetamine immunoassays are subject to significant false positive rates due to cross-reactivity of non-amphetamine drugs. Confirmatory testing required for definitive results. Current Interpretive Data was last reviewed 2022. Testing performed by: [address] [address] Barbiturates, ur Not Detected CutOff 200ng/mL ELVI Comment: Interpretive Data - Barbiturates: ??Samples containing greater than 200 ng/mL secobarbital or other cross-reacting barbiturate compounds are reported as positive. ??False positive and false negative results are possible. Confirmatory testing required for definitive results. Current Interpretive Data was last reviewed 2022. Testing performed by: [address] [address] Benzodiazepines, ur Not Detected CutOff 100ng/mL ELVI Comment: Interpretive Data - Benzodiazepines: ??Samples containing greater than 100 ng/mL nordiazepam or other cross-reacting compounds are reported as positive. False positive and false negative results are possible. Confirmatory testing required for definitive results. Current Interpretive Data was last reviewed 2022. Testing performed by: [address] [address] Cannabinoids, ur Not Detected CutOff 50 ng/mL [facility] Comment: Interpretive Data - Cannabinoids: ??Samples containing greater than 50 ng/mL delta-9 THC -COOH or other cross-reacting compounds are reported as positive. ??False positive and false negative results are possible. ??Confirmatory testing required for definitive results. Current Interpretive Data was last reviewed 2022. Testing performed by: [address] [address] Cocaine, ur Not Detected CutOff 150ng/mL [facility] Comment: Interpretive Data - Cocaine: ??Samples containing greater than 150 ng/mL benzoylecgonine or other cross-reacting compounds are reported as positive. False positive and false negative results are possible. Confirmatory testing required for definitive results. Current Interpretive Data was last reviewed 2022. Testing performed by: [address] [address] Fentanyl, Ur Not Detected Cutoff 1 ng/mL [facility] Comment: Interpretive Data - Fentanyl: ??Samples containing greater than 1 ng/mL fentanyl or other cross-reacting fentanyl compounds are reported as positive. ??False positive and false negative results are possible. Confirmatory testing required for definitive results. Current Interpretive Data was last reviewed 2022. Testing performed by: [address] [address] Methadone, ur Not Detected CutOff 300ng/mL [facility] Comment: Interpretive Data - Methadone: ??Samples containing greater than 300 ng/mL d,l-methadone or other cross-reacting compounds are reported as positive. ??False positive and false negative results are possible. Confirmatory testing required for definitive results. Current Interpretive Data was last reviewed 2022. Testing performed by: [address] [address] Opiates, ur Not Detected CutOff 300ng/mL [facility] Comment: Interpretive Data - Opiates: ??Samples containing greater than 300 ng/mL morphine or other cross-reacting compounds are reported as positive. ??False positive and false negative results are possible. Confirmatory testing required for definitive results. Current Interpretive Data was last reviewed 2022. Testing performed by: [address] [address] Oxycodone, ur Not Detected CutOff 100ng/mL ELVI Comment: Interpretive Data - Oxycodone: ??Samples containing greater than 100 ng/mL oxycodone or other cross-reacting compounds are reported as ??positive. ??False positive and false negative results are possible. Confirmatory testing required for definitive results. Current Interpretive Data was last reviewed 2022. Testing performed by: [address] [address] Phencyclidine, ur Not Detected CutOff 25 ng/mL ELVI Comment: Interpretive Data - Phencyclidine: ??Samples containing greater than 25 ng/mL phencyclidine or other cross-reacting compounds are reported as positive. ??False positive and false negative results are possible. Confirmatory testing required for definitive results. Current Interpretive Data was last reviewed 2022. Testing performed by: [address] [address] Urine Creatinine 15 mg/dL ELVI Comment: Interpretive Data Urine Creatinine: < 10 mg/dL is extremely dilute = or > 10 but < 20 mg/dL is dilute = or > 20 mg/dL is normal Current Interpretive Data was last revised on 2017. Testing performed by: [address] [address] Urine 05/02/2024 7:51 AM MACHINE ASSEMBLER SUPERVISOR 05/02/2024 8:18 AM MACHINE ASSEMBLER SUPERVISOR Narrative ELVI - 05/02/2024 9:02 AM MACHINE ASSEMBLER SUPERVISOR Drug of Abuse screening is performed by immunoassay for medical purposes only. ??This is not to be used for Pain Management purposes. ??If Detected, confirmation testing will be performed for Amphetamines, Cocaine, Fentanyl, Methadone, Opiates, Oxycodone or Phencyclidine. Amaury Lezama MD LAB URINE ORDERABL ES Final Result ELVI [address] [facility] Department [place] [address] * (ABNORMAL) Urinalysis reflex to microscopic and culture Urine (05/02/2024 7:51 AM MACHINE ASSEMBLER SUPERVISOR) Color, ur Straw Yellow Comment:Testing performed by : [address] [address] Clarity, ur Clear Clear ELVI Comment:Testing performed by : [address] [address] Specific gravity, ur 1.005 1.003 - 1.030 ELVI Comment:Testing performed by : [address] [address] pH, urine 6.5 ELVI Comment: Interpretive Data ? Urine pH is affected by diet, medications, systemic acid-base disturbances, and renal tubular function. ??pH may affect urinary stone formation. ??For example, urine pH below 6.0 may help reduce the tendency for calcium phosphate stones and pH greater than 6.0 may reduce the tendency for uric acid stone formation. Source: [facility] [employer] Current Interpretive Data was last revised on 2017 Testing performed by: [address] [address] Protein, ur ql Trace(A) Negative ELVI Comment:Testing performed by : [address] [address] Glucose, ur ql Negative Negative ELVI Comment:Testing performed by : [address] [address] Ketones, ur Negative Negative ELVI Comment:Testing performed by : [address] [address] Bilirubin, ur Negative Negative ELVI Comment:Testing performed by : [address] [address] Blood, ur Trace(A) Negative ELVI Comment:Testing performed by : [address] [address] Urobilinogen, ur <2.0 <2.0 mg/dL ELVI Comment:Testing performed by : [address] [address] Nitrite, ur Negative Negative ELVI Comment:Testing performed by : [address] [address] Leukocyte esterase, ur Negative Negative ELVI Comment:Testing performed by : [address] [address] UA reflex comment Reflex to microscopic UA will be performed. ELVI Comment:Testing performed by : [address] [address] Urine 05/02/2024 7:51 AM MACHINE ASSEMBLER SUPERVISOR 05/02/2024 8:18 AM MACHINE ASSEMBLER SUPERVISOR Amaury Lezama MD LAB MICROBIOLOGY - GENERAL ORDERABLES Final Result Performing Organization Address [facility] de Phone Number ELVI SNIDER [facility]da[facility] [place], [place] [id number] * (ABNORMAL) Urinalysis, microscopic only (05/02/2024 7:51 AM MACHINE ASSEMBLER SUPERVISOR) WBC, ur 0-5 0 - 5 /HPF Comment:Testing performed by : [address] [address] RBC, ur 0-2 0 - 2 /HPF ELVI Comment:Testing performed by : [address] [address] Bacteria, ur Trace(A) ELVI Comment:Testing performed by : [address] [address] Mucous, ur Present(A) ELVI Comment:Testing performed by : [address] [address] Culture Reflex Comment Reflex conditions for urine culture (WBC >10) not met. ELVI Comment:Testing performed by : [address] [address] Urine 05/02/2024 7:51 AM MACHINE ASSEMBLER SUPERVISOR 05/02/2024 8:18 AM MACHINE ASSEMBLER SUPERVISOR Amaury Lezama MD LAB URINE ORDERABL ES Final Result Performing Organization Address [facility] de Phone Number ELVI [facility] [place] [address] * (ABNORMAL) Troponin T high-sensitivity 2-hour (05/02/2024 6:25 AM MACHINE ASSEMBLER SUPERVISOR) Trop T hs 96(H) <=22 ng/L Comment: Interpretive Data For further hscTnT resources including the diagnostic algorithm and an aid in interpretation, copy and paste this link: https://nrl.testcatalog.org/show/hsTrop Current Interpretive Data last revised 2020. Testing performed by: [address] [address] Trop T hs pct delta -9 % ELVI Comment:Testing performed by : [address] [address] Trop T hs interp Equivocal ELVI Comment:Testing performed by : [address] [address] Blood 05/02/2024 6:25 AM MACHINE ASSEMBLER SUPERVISOR 05/02/2024 6:27 AM MACHINE ASSEMBLER SUPERVISOR us Alfred Thompson DO LAB BLOOD ORDERABLES Final Result Performing Organization Address [facility] Co de Phone Number AMADOU[address] [address] * Thyroid Function [place] (05/02/2024 6:25 AM MACHINE ASSEMBLER SUPERVISOR) [facility] TSH 1.60 0.30 - 4.20 mcIUnit/mL Comment:Testing performed by : [address] [address] Blood 05/02/2024 6:25 AM MACHINE ASSEMBLER SUPERVISOR 05/02/2024 7:23 AM MACHINE ASSEMBLER SUPERVISOR us Amaury Lezama MD LAB BLOOD ORDERABL ES Final Result Performing Organization Address City/[facility]/ZIP Co de Phone Number [place] [id number] [place] [address] * (ABNORMAL) Iron profile w/ IBC (05/02/2024 6:25 AM MACHINE ASSEMBLER SUPERVISOR) Iron 17(L) 50 - 150 mcg/dL Comment:Testing performed by : [address] [address] TIBC 284 250 - 400 mcg/dL ELVI SNIDER Comment:Testing performed by : [address] [address] Transferrin saturation 6(L) 20 - 50 % ELVI Comment:Testing performed by : [address], [address] Blood 05/02/2024 6:25 AM MACHINE ASSEMBLER SUPERVISOR 05/02/2024 7:23 AM MACHINE ASSEMBLER SUPERVISOR Amaury Lezama MD LAB BLOOD ORDERABL ES Final Result Performing Organization Address [facility] Co de Phone Number [address] [employer] [place] [place] [address] * CRP (acute phase) (05/02/2024 6:25 AM MACHINE ASSEMBLER SUPERVISOR) CRP 5.4 <=10.0 mg/L Comment:Testing performed by : [address], [address] Blood 05/02/2024 6:25 AM MACHINE ASSEMBLER SUPERVISOR 05/02/2024 7:23 AM MACHINE ASSEMBLER SUPERVISOR Amaury Lezama MD LAB BLOOD ORDERABL ES Final Result Performing Organization Address City/[facility]/ZIP Co de Phone Number [address] [address] * Ferritin (05/02/2024 6:25 AM MACHINE ASSEMBLER SUPERVISOR) Ferritin 174 30 - 400 ng/mL Comment:Testing performed by : [address] [address] Blood 05/02/2024 6:25 AM MACHINE ASSEMBLER SUPERVISOR 05/02/2024 7:23 AM MACHINE ASSEMBLER SUPERVISOR us Amaury Lezama MD LAB BLOOD ORDERABL ES Final Result Performing Organization Address [facility] Co de Phone Number ELVI [address] [facility] [place] [employer] [place] [address] * (ABNORMAL) Troponin T high-sensitivity series (baseline, 2hr, 4hr, 6hr) (05/02/2024 4:41 AM MACHINE ASSEMBLER SUPERVISOR) Trop T hs 105(H) <=22 ng/L Comment: Interpretive Data For further hscTnT resources including the diagnostic algorithm and an aid in interpretation, copy and paste this link: https://nrl.testcatalog.org/show/hsTrop Current Interpretive Data last revised 2020. Testing performed by: [facility], [address] [place] [address]., [address] Blood 05/02/2024 4:41 AM MACHINE ASSEMBLER SUPERVISOR 05/02/2024 4:45 AM MACHINE ASSEMBLER SUPERVISOR us Alfred Thompson DO LAB BLOOD ORDERABLES Final Result Performing Organization Address [facility] Co de Phone Number ELVI [address] [facility] [employer] [place] [address] * (ABNORMAL) eGFR (05/02/2024 4:41 AM MACHINE ASSEMBLER SUPERVISOR) eGFR 23(L) >=60 mL/min/1. 73 m2 Comment: Interpretive Data Reference Interval Normal ?>/= 90 mL/min/1.73m2 Mildly decreased* ? 60 - 89 mL/min/1.73m2 Mildly to moderately decreased ?45 - 59 mL/min/1.73m2 Moderately to severely decreased ??30 - 44 mL/min/1.73m2 Severely decreased ?15 - 29 mL/min/1.73m2 Kidney Failure ?< 15 ??mL/min/1.73m2 *Relative to young adult level Estimated glomerular filtration rate is determined by the 2020 CKD-EPI equation recommended by the National Kidney Foundation (A Unifying Approach to GFR Estimation: Recommendations of the NKF-ASK Task Force on Reassessing the Inclusion of Race in Diagnosing Kidney Disease, JASN 202). The CKD-EPI equation should not be used for patients with unstable renal function and has not been validated in children and those over 70. Current interpretive data was last reviewed 2021. Testing performed by: [address] [address] Blood 05/02/2024 4:41 AM MACHINE ASSEMBLER SUPERVISOR 05/02/2024 4:45 AM MACHINE ASSEMBLER SUPERVISOR us Alfred Thompson DO LAB BLOOD ORDERABLES Final Result Performing Organization Address City/State/[facility] Co de Phone Number ELVI [address] [facility] Department [place] [address] * Differential, auto (05/02/2024 4:41 AM MACHINE ASSEMBLER SUPERVISOR) Neutrophil abs 6.2 1.5 - 6.5 K/cumm Comment:Testing performed by : [address] [address] Imm gran abs 0.0 0.0 - 0.1 K/cumm ELVI Comment:Testing performed by : [address] [address] Lymphocyte abs 1.2 0.8 - 3.3 K/cumm ELVI Comment:Testing performed by : [address] [address] Monocyte abs 0.6 0.2 - 0.8 K/cumm ELVI Comment:Testing performed by : [address] [address] Eosinophil abs 0.1 0.0 - 0.5 K/cumm ELVI Comment:Testing performed by : [address] [address] Basophil abs 0.0 0.0 - 0.1 K/cumm ELVI Comment:Testing performed by : [address] [address] Neutrophil pct 76.6 % [facility] Comment: Interpretive Data Percent cell count reference ranges are not reported, since discordance with absolute values may lead to misinterpretation of CBC data. Current Interpretive Data was last revised on 2017. Testing performed by: [address] [address] Imm gran pct 0.4 % [facility] Comment: Interpretive Data Percent cell count reference ranges are not reported, since discordance with absolute values may lead to misinterpretation of CBC data. Current Interpretive Data was last revised on 2017. Testing performed by: [address] [address] Lymphocyte pct 14.2 % [facility] Comment: Interpretive Data Percent cell count reference ranges are not reported, since discordance with absolute values may lead to misinterpretation of CBC data. Current Interpretive Data was last revised on 2017. Testing performed by: [address] [address] Monocyte pct 7.0 % [facility] Comment: Interpretive Data Percent cell count reference ranges are not reported, since discordance with absolute values may lead to misinterpretation of CBC data. Current Interpretive Data was last revised on 2017. Testing performed by: [address] [address] Eosinophil pct 1.4 % [facility] Comment: Interpretive Data Percent cell count reference ranges are not reported, since discordance with absolute values may lead to misinterpretation of CBC data. Current Interpretive Data was last revised on 2017. Testing performed by: [address] [address] Basophil pct 0.4 % [facility] Comment: Interpretive Data Percent cell count reference ranges are not reported, since discordance with absolute values may lead to misinterpretation of CBC data. Current Interpretive Data was last revised on 2017. Testing performed by: [address] [address] Blood 05/02/2024 4:41 AM MACHINE ASSEMBLER SUPERVISOR 05/02/2024 4:45 AM MACHINE ASSEMBLER SUPERVISOR us Alfred Thompson DO LAB BLOOD ORDERABLES Final Result Performing Organization Address City/State/ZIP Co oh Phone Number CERJTY MH [address] [facility] Department [place] [address] * (ABNORMAL) Pro B-type natriuretic peptide (05/02/2024 4:41 AM MACHINE ASSEMBLER SUPERVISOR) NT-proBNP 6,485(H) <=300 pg/mL Comment: Interpretive Comments: A. Dyspnea in Acute Care Setting All Ages: ?< 300 pg/ml, acute heart failure unlikely. < 50 yrs: ?300 - 450 pg/ml, further investigation warranted. ? > 450 pg/ml, acute heart failure likely. 50 - 74 yrs: ? 300 - 900 pg/ml, further investigation warranted. ? > 900 pg/ml, acute heart failure likely . > or = 75 yrs: ? 450 - 1800 pg/ml, further investigation warranted. ? > 1800 pg/ml, acute heart failure likely. B. Non-acute Setting < 75 yrs ? < 125 pg/ml, rules out heart failure. ? > or = 125 pg/ml, further investigation warranted. > or = 75 yrs ?< 450 pg/ml, rules out heart failure. ? > or = 450 pg/ml, further investigation warranted. - Knowledge of each individual patient's NT-proBNP range may be more useful than using similar cut-points for every patient. Please note that marked elevations in NT-proBNP levels may be observed in state other than Left Ventricular Congestive Failure, including: acute coronary syndromes, right heart strain/failure (including pulmonary embolism and cor pulmonale), critical illness, renal failure, as well as advanced age. - References: 1. Leida LUNA et.al. Eur Heart J. 2006:27:330-337. 2. Gisela BURTON, Devin GRIGSBY. J. AM Nancy Cardiol: Cardiovasc Imag. 2009;2: 216- 225. Interpretive Data Last Revised Date: 2018. Testing performed by: [address] [address] Blood 05/02/2024 4:41 AM MACHINE ASSEMBLER SUPERVISOR 05/02/2024 4:45 AM MACHINE ASSEMBLER SUPERVISOR us Alfred Thompson DO LAB BLOOD ORDERABLES Final Result ELVI [address] [facility] Department [place] [address] * (ABNORMAL) CBC with auto differential (05/02/2024 4:41 AM MACHINE ASSEMBLER SUPERVISOR) WBC 8.1 3.8 - 9.9 K/cumm Comment:Testing performed by : [address] [address] Hgb 9.4(L) 13.0 - 17.5 g/dL ELVI SNIDER Comment:Testing performed by : [address] [address] Hct 30.3(L) 38.9 - 50.3 % ELVI SNIDER Comment:Testing performed by : [address] [address] Plt 322 150 - 400 K/cumm ELVI SNIDER Comment:Testing performed by : [address] [address] MPV 9.1 9.1 - 12.3 fL ELVI SNIDER Comment:Testing performed by : [address] [address] RBC 3.77(L) 4.30 - 5.80 M/cumm ELVI SNIDER Comment:Testing performed by : [address] [address] MCV 80.4(L) 81.3 - 96.4 fL ELVI Comment:Testing performed by : [address] [address] MCH 24.9(L) 27.1 - 33.3 pg ELVI SNIDER Comment:Testing performed by : [address] [address] MCHC 31.0(L) 32.3 - 35.7 g/dL ELVI Comment:Testing performed by : [address] [address] RDW CV 16.8(H) 11.1 - 14.9 % ELVI Comment:Testing performed by : [address] [address] RDW SD 48.6(H) 35.7 - 48.1 fL ELVI SNIDER Comment:Testing performed by : [address] [address] NRBC abs 0.00 0.00 - 0.01 K/cumm ELVI Comment:Testing performed by : [address] [address] Blood 05/02/2024 4:41 AM MACHINE ASSEMBLER SUPERVISOR 05/02/2024 4:45 AM MACHINE ASSEMBLER SUPERVISOR Alfred Thompson DO LAB BLOOD ORDERABLES Final Result ELVI [address] [facility] Department of Laboratories [place], [place] [id number] * (ABNORMAL) Reticulocyte Count (05/02/2024 4:41 AM MACHINE ASSEMBLER SUPERVISOR) Retics, absolute 0.126(H) 0.020 - 0.087 M/cumm Comment:Testing performed by : [address] [address] Retics 3.3(H) 0.4 - 2.9 % ELVI Comment:Testing performed by : [address] [address] Reticulocyte Hgb 20.3(L) 30.5 - 38.0 pg ELVI SNIDER Comment:Testing performed by : [address] [address] Blood 05/02/2024 4:41 AM MACHINE ASSEMBLER SUPERVISOR 05/02/2024 7:23 AM MACHINE ASSEMBLER SUPERVISOR Amaury Lezama MD LAB BLOOD ORDERABL ES Final Result ELVI [address] [facility] Department [place] [address] * (ABNORMAL) Comprehensive metabolic panel (05/02/2024 4:41 AM MACHINE ASSEMBLER SUPERVISOR) Sodium 134(L) 135 - 145 mmol/L Comment:Testing performed by : [address] [address] Potassium, pl 3.3 3.3 - 4.9 mmol/L ELVI Comment:Testing performed by : [address] [address] Chloride 98 97 - 110 mmol/L ELVI Comment:Testing performed by : [address] [address] CO2 23 22 - 32 mmol/L ELVI Comment:Testing performed by : [address] [address] Anion gap 13 2 - 15 mmol/L ELVI Comment:Testing performed by : [address] [address] BUN 38(H) 6 - 25 mg/dL ELVI Comment:Testing performed by : [address] [address] Creatinine 3.30(H) 0.80 - 1.30 mg/dL ELVI Comment:Testing performed by : [address] [address] Glucose 108 70 - 199 mg/dL ELVI Comment: Interpretive Data Fasting glucose >/= 126 mg/dl is diagnostic for diabetes. ?? Fasting is defined as no caloric intake for at least 8 hours. Fasting glucose between 100 mg/dl to 125 mg/dl is diagnostic of prediabetes. In a patient with classic symptoms of hyperglycemia or hyperglycemic crisis, a random glucose >/= 200 mg/dl is diagnostic for diabetes. In the absence of unequivocal hyperglycemia, results should be confirmed by repeat testing. The classification and Diagnosis of Diabetes Diabetes Care 202; 46: S19-S40. Current interpretive data was last revised 2022. Testing performed by: [address] [address] Calcium 7.9(L) 8.5 - 10.3 mg/dL ELVI Comment:Testing performed by : [address] [address] Bilirubin, total 0.8 0.1 - 1.2 mg/dL ELVI Comment:Testing performed by : [address] [address] Protein, pl 7.1 6.5 - 8.5 g/dL ELVI Comment:Testing performed by : [address] [address] Albumin 3.2(L) 3.5 - 5.0 g/dL [facility] Comment:Testing performed by : [address] [address] Alk phos 82 40 - 130 Units/L ELVI Comment:Testing performed by : [address] [address] ALT 45 7 - 55 Units/L ELVI Comment:Testing performed by : [address] [address] AST 34 10 - 50 Units/L [facility] Comment:Testing performed by : [address] [address] Blood 05/02/2024 4:41 AM MACHINE ASSEMBLER SUPERVISOR 05/02/2024 4:45 AM MACHINE ASSEMBLER SUPERVISOR us Alfred Thompson DO LAB BLOOD ORDERABLES Final Result ELVI [address] [facility] Department of Laboratories [place], [place] [id number] * XR Chest 1 Vw Portable (05/02/2024 4:29 AM MACHINE ASSEMBLER SUPERVISOR) Anatomical Region Laterality Modality Body, Chest N/A Computed Radiogr aphy 05/02/2024 4:32 AM MACHINE ASSEMBLER SUPERVISOR Narrative 05/02/2024 4:36 AM MACHINE ASSEMBLER SUPERVISOR EXAM DESCRIPTION: XR CHEST 1 VIEW REASON FOR STUDY: edema, hypertension ?? Hx of CHF; states recently had some medication switched and he thinks it was not the right prescription ? C/o swelling to lower extremities and pain, denies dyspnea or chest pain. HTN in triage, takes medication 3 x a day for, took dose prior to coming to ED. ? TECHNIQUE: Single ??radiographic view(s) of the chest. COMPARISON: 04/14/2024 FINDINGS: LUNGS: ??Bibasilar areas of infiltrate are noted. ??No consolidation is seen. ?? HEART/MEDIASTINUM: ??Cardiac silhouette prominent in size. Mediastinal and hilar contours appear normal. LINES/TUBES: ??None. BONES: ??No acute osseous abnormality. IMPRESSION: Bibasilar areas of infiltrate. THIS IS AN ELECTRONICALLY VERIFIED FINAL REPORT 05/02/2024 4:36 AM - Electronically signed by ??Shaggy Hernandez M.D. KH: ZHANE D: ??05/02/2024 4:36 AM T: ??05/02/2024 4:36 AM Report ID: [id number] Reading Location: ??[id number] Procedure Note Shaggy Hernandez MD - 05/02/2024 EXAM DESCRIPTION: XR CHEST 1 VIEW REASON FOR STUDY: edema, hypertension Hx of CHF; states recently had some medication switched and he thinks itwas not the right prescription C/o swelling to lower extremities andpain, denies dyspnea or chest pain. HTN in triage, takes medication 3 x a dayfor, took dose prior to coming to ED. TECHNIQUE: Single radiographic view(s) of the chest. COMPARISON: 04/14/2024 FINDINGS: LUNGS: Bibasilar areas of infiltrate are noted. Noconsolidation is seen. HEART/MEDIASTINUM: Cardiac silhouette prominent in size. Mediastinal and hilar contours appear normal. LINES/TUBES: None. BONES: No acute osseous abnormality. IMPRESSION: Bibasilar areas of infiltrate. THIS IS AN ELECTRONICALLY VERIFIED FINAL REPORT 05/02/2024 4:36 AM - Electronically signed by Shaggy Hernandez M.D. KH: ZHANE Report ID: [id number] Reading Location: [place] [address] Alfred Thompson DO IMG XR PROCEDURES Final Res ult * [facility] CRITICAL CARE ILL/INJURED PATIENT INIT 30-74 MIN (05/02/2024 4:23 AM MACHINE ASSEMBLER SUPERVISOR) Narrative Alfred Thompson, DO - 05/02/2024 4:23 AM MACHINE ASSEMBLER SUPERVISOR Alfred Thompson, DO ? 05/02/2024 ??6:11 AM Critical Care Performed by: Alfred Thompson DO Authorized by: Alfred Thompson, ?? Critical care provider statement: As reflected in the history, physical exam, orders, notes, and/or MDM, I was personally present while the patient was critically ill and provided critical care services for 35 minutes, excluding time involved in separately billable procedures. ??Critical care was necessary to treat or prevent imminent or life-threatening deterioration of the following condition(s): ?? unstable vital signs ?? hypertensive crisis ??Critical care was time spent by me providing the following: ? continuous telemetry and interpretation of bedside monitors, imaging, and arterial/venous lab draws ?? initiation and active titration of vasoactive medications ?? I provided emergent necessary critical care medicine services to this patient. I ordered and reviewed test results and/or imaging studies. I spent time discussing the management and therapeutic options for this critically ill patient with the patient themselves or with the appropriate designated surrogate decision-maker. I spent time documenting in the medical record. I admitted this patient to an Intensive Care unit (ICU) and discussed management with the admitting team. Alfred Thompson DO IN CLINIC/BEDSIDE ORDERABLE S Final Result * ECG 12 lead (05/02/2024 4:22 AM MACHINE ASSEMBLER SUPERVISOR) [facility] Ventricular Rate EKG/Min 87 BPM [facility] Atrial Rate 87 BPM [facility] UT-Interval (MSEC) 180 ms [facility] QRS-Interval (MSEC) 116 ms [facility] QT-Interval (MSEC) 438 ms [facility] QTc 527 ms [facility] P [place] 23 degrees [facility] R [place] -49 degrees [facility] T [place] 70 degrees [facility] Diagnosis Normal sinus rhythm Biatrial enlargement Left axis deviation Possible Anterior infarct (cited on or before 15-JUN-2018) Prolonged QT Abnormal ECG When compared with ECG of 14-APR-2024 08:58, T wave inversion less evident in Lateral leads Confirmed by JOSE ADAMSON M.D. ([id number]) on 05/02/2024 9:50:05 PM [facility] 05/02/2024 4:22 AM MACHINE ASSEMBLER SUPERVISOR 05/02/2024 9:50 PM MACHINE ASSEMBLER SUPERVISOR us Alfred Thompson DO ECG ORDERABLES Final Resul t [facility] * (ABNORMAL) eGFR (04/16/2024 8:00 AM MACHINE ASSEMBLER SUPERVISOR) eGFR 24(L) >=60 mL/min/1. 73 m2 Comment: Interpretive Data Reference Interval Normal ?>/= 90 mL/min/1.73m2 Mildly decreased* ? 60 - 89 mL/min/1.73m2 Mildly to moderately decreased ?45 - 59 mL/min/1.73m2 Moderately to severely decreased ??30 - 44 mL/min/1.73m2 Severely decreased ?15 - 29 mL/min/1.73m2 Kidney Failure ?< 15 ??mL/min/1.73m2 *Relative to young adult level Estimated glomerular filtration rate is determined by the 2020 CKD-EPI equation recommended by the National Kidney Foundation (A Unifying Approach to GFR Estimation: Recommendations of the NKF-ASK Task Force on Reassessing the Inclusion of Race in Diagnosing Kidney Disease, JASN 2020). The CKD-EPI equation should not be used for patients with unstable renal function and has not been validated in children and those over 70. Current interpretive data was last reviewed 2021. Blood 04/16/2024 8:00 AM MACHINE ASSEMBLER SUPERVISOR 04/16/2024 8:32 AM MACHINE ASSEMBLER SUPERVISOR us Elias Fenton MD LAB BLOOD ORDERABLES nal Result [place] [address] [facility] Department [place] [address] * Differential, auto (04/16/2024 8:00 AM MACHINE ASSEMBLER SUPERVISOR) Pathologist [facility] Neutrophil abs 2.3 1.5 - 6.5 K/cumm Imm gran abs 0.0 0.0 - 0.1 K/cumm [facility] Lymphocyte abs 1.6 0.8 - 3.3 K/cumm [facility] Monocyte abs 0.5 0.2 - 0.8 K/cumm [facility] Eosinophil abs 0.2 0.0 - 0.5 K/cumm [facility] Basophil abs 0.0 0.0 - 0.1 K/cumm [facility] Neutrophil pct 49.3 % [facility] Comment: Interpretive Data Percent cell count reference ranges are not reported, since discordance with absolute values may lead to misinterpretation of CBC data. Current Interpretive Data was last revised on 2017. Imm gran pct 0.2 % [facility] Comment: Interpretive Data Percent cell count reference ranges are not reported, since discordance with absolute values may lead to misinterpretation of CBC data. Current Interpretive Data was last revised on 2017. Lymphocyte pct 33.8 % [facility] Comment: Interpretive Data Percent cell count reference ranges are not reported, since discordance with absolute values may lead to misinterpretation of CBC data. Current Interpretive Data was last revised on 2017. Monocyte pct 11.4 % [facility] Comment: Interpretive Data Percent cell count reference ranges are not reported, since discordance with absolute values may lead to misinterpretation of CBC data. Current Interpretive Data was last revised on 2017. Eosinophil pct 4.4 % [facility] Comment: Interpretive Data Percent cell count reference ranges are not reported, since discordance with absolute values may lead to misinterpretation of CBC data. Current Interpretive Data was last revised on 2017. Basophil pct 0.9 % [facility] Comment: Interpretive Data Percent cell count reference ranges are not reported, since discordance with absolute values may lead to misinterpretation of CBC data. Current Interpretive Data was last revised on 2017. Blood 04/16/2024 8:00 AM MACHINE ASSEMBLER SUPERVISOR 04/16/2024 8:32 AM MACHINE ASSEMBLER SUPERVISOR Elias Fenton MD LAB BLOOD ORDERABLES nal Result [place] [id number] [facility] Department [place] [address] * (ABNORMAL) CBC with auto differential (04/16/2024 8:00 AM MACHINE ASSEMBLER SUPERVISOR) WBC 4.6 3.8 - 9.9 K/cumm Hgb 12.1(L) 13.0 - 17.5 g/dL [facility] Hct 38.6(L) 38.9 - 50.3 % [facility] Plt 283 150 - 400 K/cumm [facility] MPV 9.5 9.1 - 12.3 fL [facility] RBC 4.73 4.30 - 5.80 M/cumm [facility] MCV 81.6 81.3 - 96.4 fL [facility] MCH 25.6(L) 27.1 - 33.3 pg [facility] MCHC 31.3(L) 32.3 - 35.7 g/dL [facility] RDW CV 17.0(H) 11.1 - 14.9 % [facility] RDW SD 50.3(H) 35.7 - 48.1 fL [facility] NRBC abs 0.00 0.00 - 0.01 K/cumm [facility] Blood 04/16/2024 8:00 AM MACHINE ASSEMBLER SUPERVISOR 04/16/2024 8:32 AM MACHINE ASSEMBLER SUPERVISOR Elias Fenton MD LAB BLOOD ORDERABLES Ed ited Result - Final Performing Organization Address [facility] de Phone Number [address] [place] [place] [address] * (ABNORMAL) Manual Differential (04/16/2024 8:00 AM MACHINE ASSEMBLER SUPERVISOR) [facility] Differential Auto RBC morphology Present(A) [facility] Polychromasia 3-7/HPF(A) [facility] Poikilocytosis Slight(A) [facility] Elliptocytes 3-7/HPF(A) [facility] Target cells 3-7/HPF(A) [facility] Platelet estimate Automated Count Confirmed [facility] Blood 04/16/2024 8:00 AM MACHINE ASSEMBLER SUPERVISOR 04/16/2024 8:32 AM MACHINE ASSEMBLER SUPERVISOR Elias Fenton MD LAB BLOOD ORDERABLES Fi nal Result Performing Organization Address [facility] de Phone Number [address] [place] [place] [address] * Magnesium (04/16/2024 8:00 AM MACHINE ASSEMBLER SUPERVISOR) [facility] Magnesium 2.3 1.4 - 2.5 mg/dL Blood 04/16/2024 8:00 AM MACHINE ASSEMBLER SUPERVISOR 04/16/2024 8:32 AM MACHINE ASSEMBLER SUPERVISOR Elias Fenton MD LAB BLOOD ORDERABLES Fi nal Result Performing Organization Address [facility] Co de Phone Number [address] [place] [place] [address] * (ABNORMAL) Hepatic function panel (04/16/2024 8:00 AM MACHINE ASSEMBLER SUPERVISOR) [facility] Bilirubin, total 0.4 0.1 - 1.2 mg/dL Bilirubin, direct <0.2 0.1 - 0.3 mg/dL [facility] Protein, pl 7.4 6.5 - 8.5 g/dL [facility] Albumin 3.2(L) 3.5 - 5.0 g/dL [facility] Alk phos 72 40 - 130 Units/L [facility] ALT 31 7 - 55 Units/L [facility] AST 28 10 - 50 Units/L [facility] Blood 04/16/2024 8:00 AM MACHINE ASSEMBLER SUPERVISOR 04/16/2024 8:32 AM MACHINE ASSEMBLER SUPERVISOR us Elias Fenton MD LAB BLOOD ORDERABLES Fi nal Result ELVI [address] [facility] Department [place] [address] * Lipid panel (04/16/2024 8:00 AM MACHINE ASSEMBLER SUPERVISOR) Cholesterol 167 30 - 199 mg/dL Comment: Interpretive Data Ages < or = 19 years ??Acceptable: ? <170 mg/dL ??Borderline high: ??170-199 mg/dL ??High: ? >or= 200 mg/dL Ages > or = 20 years ??Desirable: ?<200 mg/dL ??Borderline high: ??200-239 mg/dL ??High: ? >or= 240 mg/dL Literature References: 1. Expert Panel on Integrated Guidelines for Cardiovascular Health and Risk Reduction in Children and Adolescents. Pediatrics 2011;128:S213 2. NCEP Expert Panel. Circulation 2004;110:227 Current Interpretive Data was last revised on 2018. Triglycerides 87 <=149 mg/dL [facility] Comment: Interpretive Data Ages < or = 9 years ??Acceptable: ? <75 mg/dL ??Borderline high: ??75-99 mg/dL ??High: ? >or= 100 mg/dL Ages 10 to 20 years ??Acceptable: ? <90 mg/dL ??Borderline high: ??90-129 mg/dL ??High: ? >or= 130 mg/dL Ages > or = 20 years ??Desirable: ?<150 mg/dL ??Borderline high: ??150-199 mg/dL ??High: ? 200-499 mg/dL ?Very high: ?? >or= 499 mg/dL Literature References: 1. Expert Panel on Integrated Guidelines for Cardiovascular Health and Risk Reduction in Children and Adolescents. Pediatrics 2011;128:S213 2. NCEP Expert Panel. Circulation 2004;110:227 Current Interpretive Data was last revised on 2018. HDL 50 >=40 mg/dL [facility] Comment: Interpretive Data Ages < or = 19 years ??Acceptable: ? >45 mg/dL ??Borderline low: ?? 40-45 mg/dL ??Low: ? <40 mg/dL Ages > or = 20 years ??Desirable: ?>or= 60 mg/dL ??Low: ? <40 mg/dL Literature References: 1. Expert Panel on Integrated Guidelines for Cardiovascular Health and Risk Reduction in Children and Adolescents. Pediatrics 2011;128:S213 2. NCEP Expert Panel. Circulation 2004;110:227 Current Interpretive Data was last revised on 2018. LDL, calculated 101 <=129 mg/dL [facility] Comment: Interpretive Data Ages < or = 19 years ??Acceptable: ? <110 mg/dL ??Borderline high: ??110-129 mg/dL ??High: ?>or= 130 mg/dL Ages > or = 20 years ??Optimal: ? <100 mg/dL ??Near optimal: ?100-129 mg/dL ??Borderline high: ?? 130-159 mg/dL ??High: ?>160 mg/dL Calculated using the Micntosh LDL-C estimating equation. This equation was implemented on 2024. Prior to this date LDL-C was estimated using the Friedewald equation. Literature References: 1. Expert Panel on Integrated Guidelines for Cardiovascular Health and Risk Reduction in Children and Adolescents. Pediatrics 2011;128:S213 2. NCEP Expert Panel. Circulation 2004;110:227 3. Arnaldo M et al. EMY Cardiol. 2020 September 23;5(5):540-548. doi: 10.1001/jamacardio.2020.0013 Current Interpretive Data was last revised on 2024. Non-HDL Cholesterol 117 mg/dL [facility] Comment: Interpretive Data Ages < or = 19 years ??Acceptable: ?<120 mg/dL ??Borderline high: ??120-144 mg/dL ??High: ?>145 mg/dL Ages > or = 20 years ??When triglycerides are >200 mg/dL, Non-HDL cholesterol is a secondary target of ? therapy with treatment goals that are 30 mg/dL greater than the LDL cholesterol target. ? Literature References: 1. Expert Panel on Integrated Guidelines for Cardiovascular Health and Risk Reduction in Children and Adolescents. Pediatrics 2011;128:S213 2. NCEP Expert Panel. Circulation 2004;110:227 Current Interpretive Data was last revised on 2018. Chol/HDL ratio 3 [facility] Blood 04/16/2024 8:00 AM MACHINE ASSEMBLER SUPERVISOR 04/16/2024 8:32 AM MACHINE ASSEMBLER SUPERVISOR Elias Fenton MD LAB BLOOD ORDERABLES Fi nal Result [facility] [address] [facility] Department of Laboratories [place], [place] [id number] * (ABNORMAL) Basic metabolic panel (04/16/2024 8:00 AM MACHINE ASSEMBLER SUPERVISOR) Pathologist [facility] Sodium 136 135 - 145 mmol/L Potassium, pl 4.2 3.3 - 4.9 mmol/L [facility] Chloride 103 97 - 110 mmol/L [facility] CO2 23 22 - 32 mmol/L [facility] Anion gap 10 2 - 15 mmol/L [facility] BUN 30(H) 6 - 25 mg/dL [facility] Creatinine 3.26(H) 0.80 - 1.30 mg/dL [facility] Glucose 105 70 - 199 mg/dL [facility] Comment: Interpretive Data Fasting glucose >/= 126 mg/dl is diagnostic for diabetes. ?? Fasting is defined as no caloric intake for at least 8 hours. Fasting glucose between 100 mg/dl to 125 mg/dl is diagnostic of prediabetes. In a patient with classic symptoms of hyperglycemia or hyperglycemic crisis, a random glucose >/= 200 mg/dl is diagnostic for diabetes. In the absence of unequivocal hyperglycemia, results should be confirmed by repeat testing. The classification and Diagnosis of Diabetes Diabetes Care 2022; 46: S19-S40. Current interpretive data was last revised 2022. Calcium 9.0 8.5 - 10.3 mg/dL [facility] Blood 04/16/2024 8:00 AM MACHINE ASSEMBLER SUPERVISOR 04/16/2024 8:32 AM MACHINE ASSEMBLER SUPERVISOR us Elias Fenton MD LAB BLOOD ORDERABLES Fi nal Result [place] [address] [facility] Department [place] [address] * TRANSTHORACIC ECHO (TTE) COMPLETE W DOPPLER/CF WO CONTRAST (04/15/2024 3:37 PM MACHINE ASSEMBLER SUPERVISOR) Anatomical Region Laterality Modality Ultrasound 04/15/2024 3:14 PM MACHINE ASSEMBLER SUPERVISOR Narrative 04/15/2024 6:57 PM MACHINE ASSEMBLER SUPERVISOR ? Adult Echocardiogram + ----- + :Name: SHARRON HEADLEY, IIIStudy Date: 04/15/2024 ?Status: MHB ? : : ? Patient Location: MHB 2 NE^[id number]^MHBHeight: 72 in ? : : ? Weight: 200 lbBP: 169/138 mmHg: :: 1985 ?Gender: Male ?BSA: 2.1 m2 ? : :Reason For Study: acute CHF exac ? : :Ordering Physician: ?: :ELIAS FENTON ? : : ? : :Performed By: Lynn ? : :Yohan, JONATHAN ?: + ----- + Procedure A two-dimensional transthoracic echocardiogram with color flow and Doppler was performed. Left Ventricle The left ventricle is normal in size. There is moderate concentric left ventricular hypertrophy. Left ventricular systolic function is severely (<30%) reduced. Ejection Fraction = 20-25%. There is severe global hypokinesis of the left ventricle. Right Ventricle The right ventricle is normal size. There is normal right ventricular wall thickness. The right ventricular systolic function is normal. Atria The left atrium is moderately dilated. Right atrial size is normal. Mitral Valve The mitral valve is normal. There is mild mitral regurgitation. Tricuspid Valve The tricuspid valve is normal. Aortic Valve Aortic valve structure is normal. No aortic stenosis . No aortic regurgitation is present. Pulmonic Valve The pulmonic valve is not well visualized. Great Vessels The aortic root is normal size. Pericardium There is no pericardial effusion. Diastology Diastolic dysfunction, Grade II, consistent with elevated left atrial pressure. Interpretation Summary The left ventricle is normal in size. There is moderate concentric left ventricular hypertrophy. Left ventricular systolic function is severely(<30%) reduced. There is severe global hypokinesis of the left ventricle. The right ventricle is normal size. There is normal right ventricular wall thickness. The right ventricular systolic function is normal. The left atrium is moderately dilated. Ejection Fraction = 20-25%. There is mild mitral regurgitation. Diastolic dysfunction, Grade II, consistent with elevated left atrial pressure. + + :Measurements with Normals ?: : ?(0.6-1.2 ?LVIDd: ?(3.5-5.7 ?? Ao root diam: ?(2.0-3.7 ?? : :IVSd: 1.5 cmcm) ? 5.9 cm ?cm) ?4.3 cm ? cm) ?: :LVPWd: ?(0.6-1.1 ?LVIDs: ?(3.1-4.6 ?? LA dimension: ?(1.9-4.0 ?? : :1.6 cm ?cm) ? 4.6 cm ?cm) ?4.8 cm ? cm) ?: + + MMode/2D Measurements & Calculations FS: 21.8 % ? Ao root area: ?LVOT diam: 2.4 cmLVLd ap4: 10.6 cm EDV(Teich): ?14.5 cm2 ? LVOT area: ? EDV(MOD- sp4): 173.9 ml ?4.5 cm2 ?105.0 ml ESV(Teich): 98.3 ml ?LVLs ap4: 9.3 cm ? ESV(MOD-sp4): ? 55.4 ml ? EF(MOD-sp4): 47.2 % ? SV(MOD-sp4): ? EF (BP): 46.9 % 49.6 ml Doppler Measurements & Calculations MV E max manuel: ?MV dec time: ?Ao V2 max: ? LV V1 max P.0 cm/sec ? 0.10 sec ?136.5 cm/sec ? 3.5 mmHg MV A max manuel: ?Ao max P.5 mmHg ??LV V1 mean P.9 cm/sec ?Ao V2 mean: ?2.0 mmHg MV E/A: 2.6 ?93.0 cm/sec ?LV V1 max: ? Ao mean P.0 mmHg 93.3 cm/sec ? Ao V2 VTI: 23.6 cm ?? LV V1 mean: ? TJ(I,D): 2.8 cm2 ?59.4 cm/sec ? TJ(V,D): 3.1 cm2 ?LV V1 VTI: 14.4 cm ? SV(LVOT): 65.1 ml ?PA V2 max: ?PI end-d manuel: ?RV V1 max: ? 80.8 cm/sec ? 207.0 cm/sec ? 49.6 cm/sec ? PA max PG: ? 2.6 mmHg ? PA V2 mean: ? 57.7 cm/sec ? PA mean PG: ? 1.5 mmHg ? PA V2 VTI: 13.2 cm Electronically signed by: Edward Reid MD 04/15/2024 06:57 PM Procedure Note Edward Reid MD - 04/15/2024 Adult Echocardiogram + ----- + :Name: SHARRON HEADLEY, IIIStudy Date: 04/15/2024Status: MHB : : Patient Location: [address]^[id number]^MHBHeight: 72 in : : : 200 lbBP: 169/138 mmHg: :: 1985 Gender: MaleBSA: 2.1 m2 : :Reason For Study: acute CHF exac: :Ordering Physician:: :ELIAS FENTON: :: :Performed By: Lynn: :JONATHAN Almanzar: + ----- + Procedure A two-dimensional transthoracic echocardiogram with color flow and Dopplerwas performed. Left Ventricle The left ventricle is normal in size. There is moderate concentric left ventricular hypertrophy. Left ventricular systolic function is severely (<30%) reduced. Ejection Fraction = 20-25%. There is severe global hypokinesis of the left ventricle. Right Ventricle The right ventricle is normal size. There is normal right ventricularwall thickness. The right ventricular systolic function is normal. Atria The left atrium is moderately dilated. Right atrial size is normal. Mitral Valve The mitral valve is normal. There is mild mitral regurgitation. Tricuspid Valve The tricuspid valve is normal. Aortic Valve Aortic valve structure is normal. No aortic stenosis . No aorticregurgitation is present. Pulmonic Valve The pulmonic valve is not well visualized. Great Vessels The aortic root is normal size. Pericardium There is no pericardial effusion. Diastology Diastolic dysfunction, Grade II, consistent with elevated left atrial pressure. Interpretation Summary The left ventricle is normal in size. There is moderate concentric left ventricular hypertrophy. Left ventricular systolic function is severely(<30%) reduced. There is severe global hypokinesis of the left ventricle. The right ventricle is normal size. There is normal right ventricular wall thickness. The right ventricular systolic function is normal. The left atrium is moderately dilated. Ejection Fraction = 20-25%. There is mild mitral regurgitation. Diastolic dysfunction, Grade II, consistent with elevated left atrial pressure. + + :Measurements with Normals: : (0.6-1.2 LVIDd: (3.5-5.7 Ao root diam:(2.0-3.7 : :IVSd: 1.5 cmcm) 5.9 cm cm) 4.3 cm cm): :LVPWd: (0.6-1.1 LVIDs: (3.1-4.6 LA dimension:(1.9-4.0 : :1.6 cm cm) 4.6 cm cm) 4.8 cm cm): + + MMode/2D Measurements & Calculations FS: 21.8 % Ao root area: LVOT diam: 2.4 cmLVLd ap4: 10.6cm EDV(Teich): 14.5 cm2 LVOT area: EDV(MOD-sp4): 173.9 ml 4.5 cm2 105.0 ml ESV(Teich): 98.3 ml LVLs ap4: 9.3cm ESV(MOD-sp4): 55.4 ml EF(MOD-sp4): 47.2% SV(MOD-sp4): EF (BP): 46.9 % 49.6 ml Doppler Measurements & Calculations MV E max manuel: MV dec time: Ao V2 max: LV V1 maxP.0 cm/sec 0.10 sec 136.5 cm/sec 3.5 mmHg MV A max manuel: Ao max P.5 mmHg LV V1 meanP.9 cm/sec Ao V2 mean: 2.0 mmHg MV E/A: 2.6 93.0 cm/sec LV V1 max: Ao mean P.0 mmHg 93.3 cm/sec Ao V2 VTI: 23.6 cm LV V1 mean: TJ(I,D): 2.8 cm2 59.4 cm/sec TJ(V,D): 3.1 cm2 LV V1 VTI:14.4 cm SV(LVOT): 65.1 ml PA V2 max: PI end-d manuel: RV V1 max: 80.8 cm/sec 207.0 cm/sec 49.6 cm/sec PA max P.6 mmHg PA V2 mean: 57.7 cm/sec PA mean P.5 mmHg PA V2 VTI: 13.2 cm Electronically signed by: Edward Reid MD 04/15/2024 06:57 PM us Elias Fenton MD CV ECHO PROCEDURES Abigail l Result * (ABNORMAL) eGFR (04/15/2024 12:45 PM MACHINE ASSEMBLER SUPERVISOR) eGFR 24(L) >=60 mL/min/1. 73 m2 Comment: Interpretive Data Reference Interval Normal ?>/= 90 mL/min/1.73m2 Mildly decreased* ? 60 - 89 mL/min/1.73m2 Mildly to moderately decreased ?45 - 59 mL/min/1.73m2 Moderately to severely decreased ??30 - 44 mL/min/1.73m2 Severely decreased ?15 - 29 mL/min/1.73m2 Kidney Failure ?< 15 ??mL/min/1.73m2 *Relative to young adult level Estimated glomerular filtration rate is determined by the 2020 CKD-EPI equation recommended by the National Kidney Foundation (A Unifying Approach to GFR Estimation: Recommendations of the NKF-ASK Task Force on Reassessing the Inclusion of Race in Diagnosing Kidney Disease, JASN 2020). The CKD-EPI equation should not be used for patients with unstable renal function and has not been validated in children and those over 70. Current interpretive data was last reviewed 2021. Blood 04/15/2024 12:4 5 PM MACHINE ASSEMBLER SUPERVISOR 04/15/2024 1:00 PM MACHINE ASSEMBLER SUPERVISOR Elias Fenton MD LAB BLOOD ORDERABLES Fi nal Result Performing Organization Address City/[facility] Co de Phone Number [address] [address] * Magnesium (04/15/2024 12:45 PM MACHINE ASSEMBLER SUPERVISOR) Pathologist [facility] Magnesium 2.4 1.4 - 2.5 mg/dL Blood 04/15/2024 12:4 5 PM MACHINE ASSEMBLER SUPERVISOR 04/15/2024 1:00 PM MACHINE ASSEMBLER SUPERVISOR Elias Fenton MD LAB BLOOD ORDERABLES Fi nal Result Performing Organization Address [facility] de Phone Number [address] [address] * (ABNORMAL) Basic metabolic panel (04/15/2024 12:45 PM MACHINE ASSEMBLER SUPERVISOR) Pathologist [facility] Sodium 134(L) 135 - 145 mmol/L Potassium, pl 3.9 3.3 - 4.9 mmol/L [facility] Chloride 102 97 - 110 mmol/L [facility] CO2 23 22 - 32 mmol/L [facility] Anion gap 9 2 - 15 mmol/L [facility] BUN 30(H) 6 - 25 mg/dL [facility] Creatinine 3.20(H) 0.80 - 1.30 mg/dL [facility] Glucose 114 70 - 199 mg/dL [facility] Comment: Interpretive Data Fasting glucose >/= 126 mg/dl is diagnostic for diabetes. ?? Fasting is defined as no caloric intake for at least 8 hours. Fasting glucose between 100 mg/dl to 125 mg/dl is diagnostic of prediabetes. In a patient with classic symptoms of hyperglycemia or hyperglycemic crisis, a random glucose >/= 200 mg/dl is diagnostic for diabetes. In the absence of unequivocal hyperglycemia, results should be confirmed by repeat testing. The classification and Diagnosis of Diabetes Diabetes Care 202; 46: S19-S40. Current interpretive data was last revised 2022. Calcium 8.7 8.5 - 10.3 mg/dL [facility] Blood 04/15/2024 12:4 5 PM MACHINE ASSEMBLER SUPERVISOR 04/15/2024 1:00 PM MACHINE ASSEMBLER SUPERVISOR us Elias Fenton MD LAB BLOOD ORDERABLES Fi nal Result [facility] [address] [facility] Department [place] [address] * (ABNORMAL) eGFR (04/15/2024 2:50 AM MACHINE ASSEMBLER SUPERVISOR) eGFR 24(L) >=60 mL/min/1. 73 m2 Comment: Interpretive Data Reference Interval Normal ?>/= 90 mL/min/1.73m2 Mildly decreased* ? 60 - 89 mL/min/1.73m2 Mildly to moderately decreased ?45 - 59 mL/min/1.73m2 Moderately to severely decreased ??30 - 44 mL/min/1.73m2 Severely decreased ?15 - 29 mL/min/1.73m2 Kidney Failure ?< 15 ??mL/min/1.73m2 *Relative to young adult level Estimated glomerular filtration rate is determined by the 2020 CKD-EPI equation recommended by the National Kidney Foundation (A Unifying Approach to GFR Estimation: Recommendations of the NKF-ASK Task Force on Reassessing the Inclusion of Race in Diagnosing Kidney Disease, JASN 202). The CKD-EPI equation should not be used for patients with unstable renal function and has not been validated in children and those over 70. Current interpretive data was last reviewed 2021. Blood 04/15/2024 2:50 AM MACHINE ASSEMBLER SUPERVISOR 04/15/2024 3:31 AM MACHINE ASSEMBLER SUPERVISOR Darryn Childress MD LAB BLOOD ORDERABLES Final Result [facility] [address] [facility] Department [place] [address] * Differential, auto (04/15/2024 2:50 AM MACHINE ASSEMBLER SUPERVISOR) Neutrophil abs 3.7 1.5 - 6.5 K/cumm Imm gran abs 0.0 0.0 - 0.1 K/cumm [facility] Lymphocyte abs 1.3 0.8 - 3.3 K/cumm [facility] Monocyte abs 0.6 0.2 - 0.8 K/cumm [facility] Eosinophil abs 0.1 0.0 - 0.5 K/cumm [facility] Basophil abs 0.0 0.0 - 0.1 K/cumm [facility] Neutrophil pct 63.6 % [facility] Comment: Interpretive Data Percent cell count reference ranges are not reported, since discordance with absolute values may lead to misinterpretation of CBC data. Current Interpretive Data was last revised on 2017. Imm gran pct 0.3 % [facility] Comment: Interpretive Data Percent cell count reference ranges are not reported, since discordance with absolute values may lead to misinterpretation of CBC data. Current Interpretive Data was last revised on 2017. Lymphocyte pct 22.9 % [facility] Comment: Interpretive Data Percent cell count reference ranges are not reported, since discordance with absolute values may lead to misinterpretation of CBC data. Current Interpretive Data was last revised on 2017. Monocyte pct 10.4 % [facility] Comment: Interpretive Data Percent cell count reference ranges are not reported, since discordance with absolute values may lead to misinterpretation of CBC data. Current Interpretive Data was last revised on 2017. Eosinophil pct 2.1 % [facility] Comment: Interpretive Data Percent cell count reference ranges are not reported, since discordance with absolute values may lead to misinterpretation of CBC data. Current Interpretive Data was last revised on 2017. Basophil pct 0.7 % [facility] Comment: Interpretive Data Percent cell count reference ranges are not reported, since discordance with absolute values may lead to misinterpretation of CBC data. Current Interpretive Data was last revised on 2017. Blood 04/15/2024 2:50 AM MACHINE ASSEMBLER SUPERVISOR 04/15/2024 3:31 AM MACHINE ASSEMBLER SUPERVISOR Darryn Childress MD LAB BLOOD ORDERABLES Final Result Performing Organization Address City/[facility]/ZIP Co de Phone Number [facility] [address] [employer] [place] [place] [address] * (ABNORMAL) CBC with auto differential (04/15/2024 2:50 AM MACHINE ASSEMBLER SUPERVISOR) WBC 5.8 3.8 - 9.9 K/cumm Hgb 10.6(L) 13.0 - 17.5 g/dL [facility] Hct 33.2(L) 38.9 - 50.3 % [facility] Plt 251 150 - 400 K/cumm [facility] MPV 9.7 9.1 - 12.3 fL [facility] RBC 4.15(L) 4.30 - 5.80 M/cumm [facility] MCV 80.0(L) 81.3 - 96.4 fL [facility] MCH 25.5(L) 27.1 - 33.3 pg [facility] MCHC 31.9(L) 32.3 - 35.7 g/dL [facility] RDW CV 17.2(H) 11.1 - 14.9 % [facility] RDW SD 50.2(H) 35.7 - 48.1 fL [facility] NRBC abs 0.00 0.00 - 0.01 K/cumm [facility] Blood 04/15/2024 2:50 AM MACHINE ASSEMBLER SUPERVISOR 04/15/2024 3:31 AM MACHINE ASSEMBLER SUPERVISOR Darryn Childress MD LAB BLOOD ORDERABLES Final Result Performing Organization Address City/[facility]/ZIP Co de Phone Number ELVI [address] [employer] [place] [place] [address] * Magnesium (04/15/2024 2:50 AM MACHINE ASSEMBLER SUPERVISOR) Pathologist [facility] Magnesium 1.8 1.4 - 2.5 mg/dL Blood 04/15/2024 2:50 AM MACHINE ASSEMBLER SUPERVISOR 04/15/2024 3:31 AM MACHINE ASSEMBLER SUPERVISOR us Elias Fenton MD LAB BLOOD ORDERABLES Fi nal Result [facility] [address] [facility] Department [place] [address] * (ABNORMAL) Comprehensive metabolic panel (04/15/2024 2:50 AM MACHINE ASSEMBLER SUPERVISOR) Pathologist [facility] Sodium 132(L) 135 - 145 mmol/L Potassium, pl 3.9 3.3 - 4.9 mmol/L [facility] Chloride 102 97 - 110 mmol/L [facility] CO2 22 22 - 32 mmol/L [facility] Anion gap 8 2 - 15 mmol/L [facility] BUN 32(H) 6 - 25 mg/dL [facility] Creatinine 3.27(H) 0.80 - 1.30 mg/dL [facility] Glucose 106 70 - 199 mg/dL [facility] Comment: Interpretive Data Fasting glucose >/= 126 mg/dl is diagnostic for diabetes. ?? Fasting is defined as no caloric intake for at least 8 hours. Fasting glucose between 100 mg/dl to 125 mg/dl is diagnostic of prediabetes. In a patient with classic symptoms of hyperglycemia or hyperglycemic crisis, a random glucose >/= 200 mg/dl is diagnostic for diabetes. In the absence of unequivocal hyperglycemia, results should be confirmed by repeat testing. The classification and Diagnosis of Diabetes Diabetes Care 202; 46: S19-S40. Current interpretive data was last revised 2022. Calcium 7.9(L) 8.5 - 10.3 mg/dL [facility] Bilirubin, total 0.6 0.1 - 1.2 mg/dL [facility] Protein, pl 6.4(L) 6.5 - 8.5 g/dL [facility] Albumin 3.0(L) 3.5 - 5.0 g/dL [facility] Alk phos 71 40 - 130 Units/L [facility] ALT 33 7 - 55 Units/L [facility] AST 30 10 - 50 Units/L [facility] Blood 04/15/2024 2:50 AM MACHINE ASSEMBLER SUPERVISOR 04/15/2024 3:31 AM MACHINE ASSEMBLER SUPERVISOR Darryn Childress MD LAB BLOOD ORDERABLES Final Result Performing Organization Address [facility] de Phone Number [address] [place] [employer] [address] * POCT glucose (04/14/2024 4:29 PM MACHINE ASSEMBLER SUPERVISOR) Pathologist [facility] Glucose, POC 118 70 - 199 mg/dL Blood 04/14/2024 4:29 PM MACHINE ASSEMBLER SUPERVISOR 04/14/2024 4:29 PM MACHINE ASSEMBLER SUPERVISOR Result [facility] Darryn Childress MD LAB POCT ORDERABLES - DEVICE Final Result Performing Organization Address [facility] de Phone Number [address] [place] [place] [address] * (ABNORMAL) Troponin T high-sensitivity 6-hour (04/14/2024 3:49 PM MACHINE ASSEMBLER SUPERVISOR) Pathologist [facility] Trop T hs 58(H) <=22 ng/L Comment: Interpretive Data For further hscTnT resources including the diagnostic algorithm and an aid in interpretation, copy and paste this link: https://nrl.testcatalog.org/show/hsTrop Current Interpretive Data last revised 2020. Trop T hs delta 4 ng/L [facility] Trop T hs interp Insignificant [facility] Blood 04/14/2024 3:49 PM MACHINE ASSEMBLER SUPERVISOR 04/14/2024 3:53 PM MACHINE ASSEMBLER SUPERVISOR Simon Vera MD LAB BLOOD ORDERABLE S Final Result Performing Organization Address [facility] Co de Phone Number [address] [place] [employer] [place] [address] * NM Pulmonary Perfusion Imaging (04/14/2024 2:28 PM MACHINE ASSEMBLER SUPERVISOR) Anatomical Region Laterality Modality Body N/A Nuclear Medicine 04/14/2024 2:44 PM MACHINE ASSEMBLER SUPERVISOR Narrative 04/14/2024 2:44 PM MACHINE ASSEMBLER SUPERVISOR EXAM DESCRIPTION: ?? NM PULMONARY PERFUSION IMAGING REASON FOR STUDY: Chest pain, PE suspected, high prob ?? RADIOPHARMACEUTICAL: ?? 5 ??mCi Tc-99m MAA via a ??left wrist ??IV site TECHNIQUE: Standard multi-planar perfusion scintigrams were obtained. COMPARISON: No prior V/Q scan. ??Correlation with chest radiograph ??the same day . FINDINGS: Slightly heterogeneous perfusion. ??The cardiac silhouette is prominent. ??No significant segmental or subsegmental perfusion defects. IMPRESSION: Low ??probability for acute pulmonary embolism. ?? THIS IS AN ELECTRONICALLY VERIFIED FINAL REPORT 04/14/2024 2:44 PM - Electronically signed by ??Jaskaran Tobin M.D. D: ??04/14/2024 2:44 PM T: Report ID: [id number] Reading Location: ??[id number] Procedure Note Jaskaran Tobin Jr., MD - 04/14/2024 EXAM DESCRIPTION: NM PULMONARY PERFUSION IMAGING REASON FOR STUDY: Chest pain, PE suspected, high prob RADIOPHARMACEUTICAL: 5 mCi Tc-99m MAA via a left wrist IV site TECHNIQUE: Standard multi-planar perfusion scintigrams were obtained. COMPARISON: No prior V/Q scan. Correlation with chest radiograph thesame day . FINDINGS: Slightly heterogeneous perfusion. The cardiac silhouette is prominent. No significant segmental or subsegmental perfusion defects. IMPRESSION: Low probability for acute pulmonary embolism. THIS IS AN ELECTRONICALLY VERIFIED FINAL REPORT 04/14/2024 2:44 PM - Electronically signed by Jaskaran Tobin M.D. T: Report ID: [id number] Reading Location: [id number] Simon Vera MD [facility] NM PROCEDURES F inal Result * (ABNORMAL) Troponin T high-sensitivity 2-hour (04/14/2024 11:32 AM MACHINE ASSEMBLER SUPERVISOR) Trop T hs 58(H) <=22 ng/L Comment: Interpretive Data For further hscTnT resources including the diagnostic algorithm and an aid in interpretation, copy and paste this link: https://nrl.[email or web address]/show/[email or web address] Current Interpretive Data last revised 2020. Trop T hs delta 4 ng/L [facility] Trop T hs interp Insignificant [facility] Blood 04/14/2024 11:3 2 AM MACHINE ASSEMBLER SUPERVISOR 04/14/2024 11:34 AM MACHINE ASSEMBLER SUPERVISOR us Simon Vera MD LAB BLOOD ORDERABLE S Final Result Performing Organization Address [facility] Co de Phone Number ELVI [address] [place] [address] * (ABNORMAL) Troponin T high-sensitivity series (baseline, 2hr, 4hr, 6hr) (04/14/2024 9:23 AM MACHINE ASSEMBLER SUPERVISOR) Pathologist [facility] Trop T hs 54(H) <=22 ng/L Comment: Interpretive Data For further hscTnT resources including the diagnostic algorithm and an aid in interpretation, copy and paste this link: https://nrl.[email or web address]/show/[email or web address] Current Interpretive Data last revised 2020. Blood 04/14/2024 9:23 AM MACHINE ASSEMBLER SUPERVISOR 04/14/2024 9:26 AM MACHINE ASSEMBLER SUPERVISOR us Simon Vera MD LAB BLOOD ORDERABLE S Final Result Performing Organization Address [facility] Co de Phone Number AMADOU[address] [employer] [place], [place] [id number] * (ABNORMAL) eGFR (04/14/2024 9:23 AM MACHINE ASSEMBLER SUPERVISOR) [facility] eGFR 22(L) >=60 mL/min/1. 73 m2 Comment: Interpretive Data Reference Interval Normal ?>/= 90 mL/min/1.73m2 Mildly decreased* ? 60 - 89 mL/min/1.73m2 Mildly to moderately decreased ?45 - 59 mL/min/1.73m2 Moderately to severely decreased ??30 - 44 mL/min/1.73m2 Severely decreased ?15 - 29 mL/min/1.73m2 Kidney Failure ?< 15 ??mL/min/1.73m2 *Relative to young adult level Estimated glomerular filtration rate is determined by the 2020 CKD-EPI equation recommended by the National Kidney Foundation (A Unifying Approach to GFR Estimation: Recommendations of the NKF-ASK Task Force on Reassessing the Inclusion of Race in Diagnosing Kidney Disease, JASN 2020). The CKD-EPI equation should not be used for patients with unstable renal function and has not been validated in children and those over 70. Current interpretive data was last reviewed 2021. Blood 04/14/2024 9:23 AM MACHINE ASSEMBLER SUPERVISOR 04/14/2024 9:26 AM MACHINE ASSEMBLER SUPERVISOR us Simon Vera MD LAB BLOOD ORDERABLE S Final Result [facility] [address] [facility] Department [place] [address] * Differential, auto (04/14/2024 9:23 AM MACHINE ASSEMBLER SUPERVISOR) Pathologist [facility] Neutrophil abs 3.9 1.5 - 6.5 K/cumm Imm gran abs 0.0 0.0 - 0.1 K/cumm [facility] Lymphocyte abs 1.0 0.8 - 3.3 K/cumm [facility] Monocyte abs 0.5 0.2 - 0.8 K/cumm [facility] Eosinophil abs 0.0 0.0 - 0.5 K/cumm [facility] Basophil abs 0.0 0.0 - 0.1 K/cumm [facility] Neutrophil pct 70.9 % [facility] Comment: Interpretive Data Percent cell count reference ranges are not reported, since discordance with absolute values may lead to misinterpretation of CBC data. Current Interpretive Data was last revised on 2017. Imm gran pct 0.4 % [facility] Comment: Interpretive Data Percent cell count reference ranges are not reported, since discordance with absolute values may lead to misinterpretation of CBC data. Current Interpretive Data was last revised on 2017. Lymphocyte pct 18.4 % [facility] Comment: Interpretive Data Percent cell count reference ranges are not reported, since discordance with absolute values may lead to misinterpretation of CBC data. Current Interpretive Data was last revised on 2017. Monocyte pct 8.9 % [facility] Comment: Interpretive Data Percent cell count reference ranges are not reported, since discordance with absolute values may lead to misinterpretation of CBC data. Current Interpretive Data was last revised on 2017. Eosinophil pct 0.7 % [facility] Comment: Interpretive Data Percent cell count reference ranges are not reported, since discordance with absolute values may lead to misinterpretation of CBC data. Current Interpretive Data was last revised on 2017. Basophil pct 0.7 % [facility] Comment: Interpretive Data Percent cell count reference ranges are not reported, since discordance with absolute values may lead to misinterpretation of CBC data. Current Interpretive Data was last revised on 2017. Blood 04/14/2024 9:23 AM MACHINE ASSEMBLER SUPERVISOR 04/14/2024 9:26 AM MACHINE ASSEMBLER SUPERVISOR us Simon Vera MD LAB BLOOD ORDERABLE S Final Result [facility] [address] [facility] Department [place] [address] * (ABNORMAL) Pro B-type natriuretic peptide (04/14/2024 9:23 AM MACHINE ASSEMBLER SUPERVISOR) NT-proBNP 6,724(H) <=300 pg/mL Comment: Interpretive Comments: A. Dyspnea in Acute Care Setting All Ages: ?< 300 pg/ml, acute heart failure unlikely. < 50 yrs: ?300 - 450 pg/ml, further investigation warranted. ? > 450 pg/ml, acute heart failure likely. 50 - 74 yrs: ? 300 - 900 pg/ml, further investigation warranted. ? > 900 pg/ml, acute heart failure likely . > or = 75 yrs: ? 450 - 1800 pg/ml, further investigation warranted. ? > 1800 pg/ml, acute heart failure likely. B. Non-acute Setting < 75 yrs ? < 125 pg/ml, rules out heart failure. ? > or = 125 pg/ml, further investigation warranted. > or = 75 yrs ?< 450 pg/ml, rules out heart failure. ? > or = 450 pg/ml, further investigation warranted. - Knowledge of each individual patient's NT-proBNP range may be more useful than using similar cut-points for every patient. Please note that marked elevations in NT-proBNP levels may be observed in state other than Left Ventricular Congestive Failure, including: acute coronary syndromes, right heart strain/failure (including pulmonary embolism and cor pulmonale), critical illness, renal failure, as well as advanced age. - References: 1. Leida LUNA et.al. Eur Heart J. 2006:27:330-337. 2. Giesla RW, Devin GRIGSBY. J. AM Nancy Cardiol: Cardiovasc Imag. 2009;2: 216- 225. Interpretive Data Last Revised Date: 2018. Blood 04/14/2024 9:23 AM MACHINE ASSEMBLER SUPERVISOR 04/14/2024 9:26 AM MACHINE ASSEMBLER SUPERVISOR us Simon Vera MD LAB BLOOD ORDERABLE S Final Result Performing Organization Address City/State/ZIP Co oh Phone Number [facility] [address] [facility] [place] [address] * (ABNORMAL) CBC with auto differential (04/14/2024 9:23 AM MACHINE ASSEMBLER SUPERVISOR) [facility] WBC 5.5 3.8 - 9.9 K/cumm Hgb 12.9(L) 13.0 - 17.5 g/dL [facility] Hct 41.6 38.9 - 50.3 % [facility] [facility] Plt 240 150 - 400 K/cumm [facility] MPV 9.9 9.1 - 12.3 fL [facility] RBC 5.09 4.30 - 5.80 M/cumm [facility] MCV 81.7 81.3 - 96.4 fL [facility] MCH 25.3(L) 27.1 - 33.3 pg [facility] MCHC 31.0(L) 32.3 - 35.7 g/dL [facility] RDW CV 17.4(H) 11.1 - 14.9 % [facility] RDW SD 51.0(H) 35.7 - 48.1 fL [facility] NRBC abs 0.00 0.00 - 0.01 K/cumm [facility] Blood 04/14/2024 9:23 AM MACHINE ASSEMBLER SUPERVISOR 04/14/2024 9:26 AM MACHINE ASSEMBLER SUPERVISOR us Simon Vera MD LAB BLOOD ORDERABLE S Final Result [facility] [place] [address] * (ABNORMAL) Comprehensive metabolic panel (04/14/2024 9:23 AM MACHINE ASSEMBLER SUPERVISOR) [facility] Sodium 132(L) 135 - 145 mmol/L Potassium, pl 4.6 3.3 - 4.9 mmol/L [facility] Comment:Hemolyzed; Potassium value may be falsely elevated by as much as 1.0 mmol/L. Suggest redraw and reanalysis. Chloride 101 97 - 110 mmol/L [facility] CO2 17(L) 22 - 32 mmol/L [facility] Anion gap 14 2 - 15 mmol/L [facility] BUN 30(H) 6 - 25 mg/dL [facility] Creatinine 3.44(H) 0.80 - 1.30 mg/dL [facility] Glucose 111 70 - 199 mg/dL [facility] Comment: Interpretive Data Fasting glucose >/= 126 mg/dl is diagnostic for diabetes. ?? Fasting is defined as no caloric intake for at least 8 hours. Fasting glucose between 100 mg/dl to 125 mg/dl is diagnostic of prediabetes. In a patient with classic symptoms of hyperglycemia or hyperglycemic crisis, a random glucose >/= 200 mg/dl is diagnostic for diabetes. In the absence of unequivocal hyperglycemia, results should be confirmed by repeat testing. The classification and Diagnosis of Diabetes Diabetes Care 2021; 46: S19-S40. Current interpretive data was last revised 2022. Calcium 9.0 8.5 - 10.3 mg/dL [facility] Bilirubin, total 0.9 0.1 - 1.2 mg/dL [facility] Protein, pl 7.7 6.5 - 8.5 g/dL [facility] Albumin 3.4(L) 3.5 - 5.0 g/dL [facility] Alk phos 80 40 - 130 Units/L [facility] ALT 47 7 - 55 Units/L [facility] AST 58(H) 10 - 50 Units/L [facility] Comment:Hemolyzed; result ma y be falsely elevated Blood 04/14/2024 9:23 AM MACHINE ASSEMBLER SUPERVISOR 04/14/2024 9:26 AM MACHINE ASSEMBLER SUPERVISOR Simon Vera MD LAB BLOOD ORDERABLE S Final Result [facility] [address] [facility] Department [place] [address] * XR Chest 1 Vw Portable (if patient condition/safety warrant portable) (04/14/2024 9:20 AM MACHINE ASSEMBLER SUPERVISOR) Anatomical Region Laterality Modality Body, Chest N/A Computed Radiogr aphy 04/14/2024 9:23 AM MACHINE ASSEMBLER SUPERVISOR Narrative 04/14/2024 9:25 AM MACHINE ASSEMBLER SUPERVISOR EXAM DESCRIPTION: XR CHEST 1 VIEW REASON FOR STUDY: Shortness of breath ?? Onset sob early today ??Swollen extremities ??Hx chf ?? TECHNIQUE: 1 ??radiographic view(s) of the chest. COMPARISON: Chest radiograph dated 11/04/2019. FINDINGS: LUNGS: ??Central predominant interstitial and airspace opacities are new from the prior exam. ?? No pneumothorax. ??Trace pleural effusions. ??Victor Manuel B-lines. HEART/MEDIASTINUM: ??Cardiomegaly with prominence of the central vasculature appears increased from the prior exam. LINES/TUBES: ??None. BONES: ??No acute osseous abnormality. IMPRESSION: Cardiomegaly with moderate pulmonary edema and trace pleural effusions. THIS IS AN ELECTRONICALLY VERIFIED FINAL REPORT 04/14/2024 9:25 AM - Electronically signed by ??Toni Morgan M.D., MM D: ??04/14/2024 9:25 AM T: Report ID: [id number] Reading Location: ??[id number] Procedure Note Toni Morgan MD - 04/14/2024 EXAM DESCRIPTION: XR CHEST 1 VIEW REASON FOR STUDY: Shortness of breath Onset sob early today Swollen extremities Hx chf TECHNIQUE: 1 radiographic view(s) of the chest. COMPARISON: Chest radiograph dated 11/04/2019. FINDINGS: LUNGS: Central predominant interstitial and airspace opacitiesare new from the prior exam. No pneumothorax. Trace pleural effusions.Victor Manuel B-lines. HEART/MEDIASTINUM: Cardiomegaly with prominence of the centralvasculature appears increased from the prior exam. LINES/TUBES: None. BONES: No acute osseous abnormality. IMPRESSION: Cardiomegaly with moderate pulmonary edema and trace pleural effusions. THIS IS AN ELECTRONICALLY VERIFIED FINAL REPORT 04/14/2024 9:25 AM - Electronically signed by Toni Morgan M.D. MM T: Report ID: [id number] Reading Location: [id number] Simon Vera MD IMG XR PROCEDURES F inal Result * (ABNORMAL) Influenza A/B, RSV, and COVID-19 PCR Nasopharyngeal (04/14/2024 9:10 AM MACHINE ASSEMBLER SUPERVISOR) Pathologist [facility] COVID-19 RNA Negative Negative Influenza A RNA Negative Negative [facility] Influenza B RNA Negative Negative [facility] RSV RNA Positive(A) Negative [facility] Comment: Interpretive data: Testing performed by [facility]. This test is performed using the [employer] Xpert Xpress CoV-2/Flu/RSV plus assay. This is a multiplex, real-time reverse transcriptase PCR assay intended for the qualitative detection of nucleic acid from SARS-CoV-2, influenza A, influenza B, and respiratory syncytial virus. This assay has been cleared by the [place] Food and Drug administration. The performance characteristics have been verified by the [facility]. ??Results must be considered in the clinical context, and a negative result does not rule out infection. Interpretive Data last revised 2023 Nasopharyngeal 04/14/2024 9: 10 AM MACHINE ASSEMBLER SUPERVISOR 04/14/2024 9:26 AM MACHINE ASSEMBLER SUPERVISOR Narrative [facility] - 04/14/2024 10:33 AM MACHINE ASSEMBLER SUPERVISOR Is the Patient experiencing symptoms consistent with COVID?->Yes us Simon Vera MD LAB MICROBIOLOGY - GENERAL ORDERABLES Final Result [facility] [address] [facility] Department [place] [address] * ECG 12 lead (04/14/2024 8:58 AM MACHINE ASSEMBLER SUPERVISOR) Pathologist [facility] Ventricular Rate EKG/Min 107 BPM [facility] Atrial Rate 107 BPM [facility] UT-Interval (MSEC) 170 ms [facility] QRS-Interval (MSEC) 102 ms [facility] QT-Interval (MSEC) 382 ms [facility] QTc 509 ms [facility] P [place] 37 degrees [facility] R [place] -73 degrees [facility] T [place] 86 degrees [facility] Diagnosis Sinus tachycardia Biatrial enlargement Left axis deviation 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 ([id number]) on 04/15/2024 3:10:50 AM [facility] 04/14/2024 8:58 AM MACHINE ASSEMBLER SUPERVISOR 04/15/2024 3:10 AM MACHINE ASSEMBLER SUPERVISOR us Simon Vera MD ECG ORDERABLES Fin al Result [facility] from Last 3 Months Advance Directives For more information, please contact: [phone] * Full Code (Latest Code Status on File) Date Activated Date Inactivated Comments 05/22/2024 5:46 AM 05/25/2024 10:43 PM * Full Code Date Activated Date Inactivated Comments 05/02/2024 8:57 AM 05/09/2024 6:40 PM * Full Code Date Activated Date Inactivated Comments 05/02/2024 6:32 AM 05/02/2024 8:57 AM * Full Code Date Activated Date Inactivated Comments 04/14/2024 3:51 PM 04/16/2024 7:03 PM * Full Code Date Activated Date Inactivated Comments 11/21/2023 4:54 AM 11/21/2023 7:57 PM Care Teams Store Promoter Relationship Specialty Start Date End Date Vicente Dickens MD [address] [place] [id number] PCP - General Family Practice 12/19/21 Arley Orona MD [address] [facility] [address] [address] Consulting Physician Nephrology 05/09/24
--- OUTSIDE RECORDS SUMMARY | 2024-06-29 16:13 | XMS_ITS | Clinical Summary ---
Author Organization [facility] [place], [place] [address] Address [address] [place] [address] Care Team Providers Care Mud Analysis Well Logging Captain Name Role Phone Vicente Dickens MD Primary Care Provider [phone] Arley Orona MD Unavailable [phone] Allergies No known active allergies Medications dapagliflozin [...] a day 180 tablet 11 05/25/2024 05/25/20 Active Active Problems Problem Noted Date Diagnosed [...] He never did get appointment with the car designer AMANDA Mckeon referred him to Encounters Date Type Department Care Team Description 05/27/2024 TCC Subsequent Outreach [facility] [address] [place] [address] Colin Christian RN 05/26/2024 SHOP/CHAP Initial Eligibility Review [facility] [address] [place] [address] Aby Paul RN 05/22/2024 1:44 AM ELECTRONICS ENGINEER - 05/25/2024 6:33 PM ELECTRONICS ENGINEER Hospital Encounter [facility] [address] [place] [phone] New Patel MD Freilich, Michelle Amanda, MD Patel, Kieran, MD Anasarca (Primary Dx); Acute on chronic combined systolic and diastolic congestive heart failure (CMS/HCC) (HCC); Hypertensive crisis Discharge Disposition: Left Against Medical Advice 05/17/2024 TCC Subsequent Outreach [facility] [address] [place] [phone] Colin Christian RN 05/10/2024 Telephone [facility] [address] [place] [phone] Vicente Dickens MD KAITLYN Questions 05/10/2024 Telephone [facility] Nephrology at [place] [id number] [phone] Marcus House MD 05/10/2024 TCC Subsequent Outreach [facility] [address] [place] [phone] Colin Christian RN 05/03/2024 TCC Initial Eligibility Review [facility] [address] [place] [phone] Susie Witt NP 05/02/2024 3:59 AM ELECTRONICS ENGINEER - 05/09/2024 2:34 PM ELECTRONICS ENGINEER Hospital Encounter [place] [address] [address] [place] [phone] Alfred Thompson DO Volkerding, Andrea Marie, MD Mahasneh, MD Juan M Marks, Brayan Davies MD Acute on chronic congestive heart failure, unspecified heart failure type (HCC) (Primary Dx); Hypertensive emergency; Chronic systolic heart failure (CMS/HCC) (HCC); MIHAI (acute kidney injury) (HCC) [N17.9]; Stage 3a chronic kidney disease (HCC) [N18.31] Discharge Disposition: Discharge to home or self care 04/28/2024 TCC Subsequent Outreach [facility] [address] [place] [phone] Colin Christian RN 04/19/2024 TCC Subsequent Outreach [facility] [address] [place] [address] Colin Christian RN 04/16/2024 TCC Initial Eligibility Review [facility] [address] [place] [address] Susie Witt NP 04/14/2024 9:14 AM ELECTRONICS ENGINEER - 04/16/2024 3:00 PM ELECTRONICS ENGINEER Hospital Encounter [address] [address] Simon Vera MD Ogbuagu, MD Harjit Zhou, Elias Still MD Shortness of breath (Primary Dx); Acute on chronic systolic CHF (congestive heart failure) (CMS/HCC) (HCC); Stage 3b chronic kidney disease (HCC); Chronic systolic heart failure (CMS/HCC) (HCC) Discharge Disposition: Discharge to home or self care from Last 3 Months Immunizations Name Administration Dates Next Due Influenza, Trivalent, Preservative Free, Intramu scular 04/16/2024 Tdap 12/10/2020 Medical History Medical History Date Comments Pre-diabetes CHF (congestive heart failure) (CMS/[facility]) ([facility]) Hypertension Kidney disease Family History Medical History Relation Name Comments Liver disease Father Diabetes Mother Hypertension Mother No Known Problems Sister Relation Name Status Comments Father Mother Alive Sister Alive Social History Tobacco Use Types Packs/Day Years Used Date Smoking Tobacco: Former Cigarettes 0.3 20 2 002 - 05/2021 Smokeless Tobacco: Never Tobacco Cessation:Counseling Given: Not Answered Alcohol Use Standard Drinks/Week Comments Never 0 (1 standard drink = 0.6 oz pur e alcohol) [facility] Utilities Answer Date Recorded In the past 12 months has [employer], gas, oil, or water company threatened to shut off services in your [...] 05/25/2024 How often do you attend chur ch or yazidism services? More than 4 times per year 05/25/2024 Do you belong to any clubs o r organizations such as adventism groups, unions, fraternal or athletic groups, or [...] any time in the past 12 m [facility], were you homeless or living in a senior living (including now)? No 05/25/2024 Personal Safety Answer Date Recorded Have you ever been in or are you currently in a harmful physical or emotional relationship or is someone making you feel afraid or unsafe? Denies 05/21/2024 Sex and Gender Information Value Date Recorded Sex Assigned at Not on file Legal Sex Male 5:49 PM ELECTRONICS ENGINEER Gender Identity Not on file Sexual Orientation Not on file Obstetrics History Last Filed Vital Signs Vital Sign Reading Time Taken Comments Blood Pressure 179/132 05/25/2024 3:25 PM ELECTRONICS ENGINEER Pulse 71 05/25/2024 3:25 PM ELECTRONICS ENGINEER Temperature 36.6 ??C (97.8 ??F) 05/25/2024 3:25 PM CS T Respiratory Rate 20 05/25/2024 3:25 PM ELECTRONICS ENGINEER Oxygen Saturation 100% 05/25/2024 3:25 PM ELECTRONICS ENGINEER Inhaled Oxygen Concentration - - Weight 95.6 kg (210 lb 12.8 oz) 05/25/2024 4:29 AM ELECTRONICS ENGINEER Height 182.9 cm (6') 05/22/2024 5:33 AM ELECTRONICS ENGINEER Body Mass Index 28.59 05/22/2024 5:33 AM ELECTRONICS ENGINEER Plan of Treatment Health Maintenance Due Date Last Done Comments Hepatitis C Screening 1984 Prostate Cancer Screening-PSA 1984 Pneumococcal vaccine <65 (1 of 2 - PCV) 1990 Varicella Vaccines (1 of 2 - 13+ 2-dose series) 1997 Regular Well Visit/Exam 18-64 2002 Depression Screening 05/21/2025 05/21/2024, 05/02/2024, 05/02/2024, Additional history exists DTaP/Tdap/Td Vaccine (2 - Td or Tdap) 12/10/2030 12/10/2020 Influenza Vaccine Completed 04/16/2024 HPV Vaccines Aged Out No longer eligi ble based on patient's age to complete this topic Procedures Procedure Name Priority Date/Time Associated Diagnosis Comments EGFR Routine 05/24/2024 8:10 PM ELECTRONICS ENGINEER CBC WITHOUT DIFFERENTIAL Routine 05/24/2024 8:10 PM ELECTRONICS ENGINEER MAGNESIUM Routine 05/24/2024 8:10 PM ELECTRONICS ENGINEER BASIC METABOLIC PANEL Routine 05/24/2024 8:10 PM ELECTRONICS ENGINEER EGFR Routine 05/23/2024 10:53 PM ELECTRONICS ENGINEER CBC WITHOUT DIFFERENTIAL Routine 05/23/2024 10:53 PM ELECTRONICS ENGINEER MAGNESIUM Routine 05/23/2024 10:53 PM ELECTRONICS ENGINEER BASIC METABOLIC PANEL Routine 05/23/2024 10:53 PM ELECTRONICS ENGINEER EGFR Timed 05/23/2024 9:00 AM ELECTRONICS ENGINEER PROTEIN, URINE, 24 HOUR RESULT Timed 05/23/2024 9:00 AM ELECTRONICS ENGINEER VOLUME AND PERIOD, URINE, 24 HOUR Timed 05/23/2024 9:00 AM ELECTRONICS ENGINEER CREATININE CLEARANCE, URINE, 24 HOUR RESULT Timed 05/23/2024 9:00 AM ELECTRONICS ENGINEER CREATININE Timed 05/23/2024 9:00 AM ELECTRONICS ENGINEER CREATININE CLEARANCE, URINE, 24 HOUR Timed 05/23/2024 9:00 AM ELECTRONICS ENGINEER EGFR Routine 05/22/2024 8:21 PM ELECTRONICS ENGINEER FOLATE Routine 05/22/2024 8:21 PM ELECTRONICS ENGINEER VITAMIN B12 Routine 05/22/2024 8:21 PM ELECTRONICS ENGINEER FERRITIN Routine 05/22/2024 8:21 PM ELECTRONICS ENGINEER CBC WITHOUT DIFFERENTIAL Routine 05/22/2024 8:21 PM ELECTRONICS ENGINEER MAGNESIUM Routine 05/22/2024 8:21 PM ELECTRONICS ENGINEER BASIC METABOLIC PANEL Routine 05/22/2024 8:21 PM ELECTRONICS ENGINEER URINALYSIS, MICROSCOPIC ONLY Routine 05/22/2024 7:49 AM ELECTRONICS ENGINEER ALBUMIN CREATININE RATIO, URINE Routine 05/22/2024 7:49 AM ELECTRONICS ENGINEER SODIUM, URINE, RANDOM Timed 05/22/2024 7:49 AM ELECTRONICS ENGINEER URINALYSIS AND REFLEX TO MICROSCOPIC AND CULTURE Routine 05/22/2024 7:49 AM ELECTRONICS ENGINEER EGFR STAT 05/22/2024 6:14 AM ELECTRONICS ENGINEER CREATININE STAT 05/22/2024 6:14 AM ELECTRONICS ENGINEER FERRITIN STAT 05/22/2024 6:14 AM ELECTRONICS ENGINEER LIPID PANEL STAT 05/22/2024 6:14 AM ELECTRONICS ENGINEER IRON PROFILE W/ IBC STAT 05/22/2024 6 :14 AM ELECTRONICS ENGINEER RPR STAT 05/22/2024 6:14 AM ELECTRONICS ENGINEER HIV 1/2 ANTIBODY PLUS P24 ANTIGEN STAT 05/22/2024 6:14 AM ELECTRONICS ENGINEER TROPONIN I HIGH-SENSITIVITY 4-HOUR Timed 05/22/2024 2:15 AM ELECTRONICS ENGINEER CO CRITICAL CARE ILL/INJURED PATIENT INIT 30-74 MIN Routine 05/22/2024 1:57 AM ELECTRONICS ENGINEER EGFR STAT 05/21/2024 10:13 PM ELECTRONICS ENGINEER DIFFERENTIAL AUTO STAT 05/21/2024 10: 13 PM ELECTRONICS ENGINEER PRO B-TYPE NATRIURETIC PEPTIDE STAT 05/21/2024 10:13 PM ELECTRONICS ENGINEER TROPONIN I HIGH-SENSITIVITY SERIES (BASELINE, 2HR, 4HR, 6HR) STAT 05/21/2024 10:13 PM ELECTRONICS ENGINEER CBC WITH AUTO DIFFERENTIAL STAT 05/21/2024 10:13 PM ELECTRONICS ENGINEER COMPREHENSIVE METABOLIC PANEL STAT 05/21/2024 10:13 PM ELECTRONICS ENGINEER XR CHEST PA LATERAL 2 VIEWS ED 05/21/2024 8:12 PM ELECTRONICS ENGINEER ECG 12-LEAD STAT 05/21/2024 8:11 PM ELECTRONICS ENGINEER EGFR Routine 05/09/2024 5:25 AM ELECTRONICS ENGINEER DIFFERENTIAL AUTO Routine 05/09/2024 5:2 5 AM ELECTRONICS ENGINEER BASIC METABOLIC PANEL Routine 05/09/2024 5:25 AM ELECTRONICS ENGINEER CBC WITH AUTO DIFFERENTIAL Routine 05/09/2024 5:25 AM ELECTRONICS ENGINEER MAGNESIUM Routine 05/09/2024 5:25 AM ELECTRONICS ENGINEER PHOSPHORUS Routine 05/09/2024 5:25 AM ELECTRONICS ENGINEER EGFR Routine 05/08/2024 5:20 AM ELECTRONICS ENGINEER DIFFERENTIAL AUTO Routine 05/08/2024 5:2 0 AM ELECTRONICS ENGINEER BASIC METABOLIC PANEL Routine 05/08/2024 5:20 AM ELECTRONICS ENGINEER CBC WITH AUTO DIFFERENTIAL Routine 05/08/2024 5:20 AM ELECTRONICS ENGINEER MAGNESIUM Routine 05/08/2024 5:20 AM ELECTRONICS ENGINEER PHOSPHORUS Routine 05/08/2024 5:20 AM ELECTRONICS ENGINEER EGFR Routine 05/07/2024 3:12 AM ELECTRONICS ENGINEER DIFFERENTIAL AUTO Routine 05/07/2024 3:1 2 AM ELECTRONICS ENGINEER BASIC METABOLIC PANEL Routine 05/07/2024 3:12 AM ELECTRONICS ENGINEER CBC WITH AUTO DIFFERENTIAL Routine 05/07/2024 3:12 AM ELECTRONICS ENGINEER MAGNESIUM Routine 05/07/2024 3:12 AM ELECTRONICS ENGINEER PHOSPHORUS Routine 05/07/2024 3:12 AM ELECTRONICS ENGINEER EGFR Routine 05/06/2024 3:28 AM ELECTRONICS ENGINEER DIFFERENTIAL AUTO Routine 05/06/2024 3:2 8 AM ELECTRONICS ENGINEER VITAMIN D 25 HYDROXY Routine 05/06/2024 3:28 AM ELECTRONICS ENGINEER PTH Routine 05/06/2024 3:28 AM ELECTRONICS ENGINEER BASIC METABOLIC PANEL Routine 05/06/2024 3:28 AM ELECTRONICS ENGINEER CBC WITH AUTO DIFFERENTIAL Routine 05/06/2024 3:28 AM ELECTRONICS ENGINEER MAGNESIUM Routine 05/06/2024 3:28 AM ELECTRONICS ENGINEER PHOSPHORUS Routine 05/06/2024 3:28 AM ELECTRONICS ENGINEER TRANSTHORACIC ECHO (TTE) COMPLETE W DOPPLER/CF W CONTRAST Routine 05/05/2024 10:40 AM ELECTRONICS ENGINEER EGFR Routine 05/05/2024 1:45 AM ELECTRONICS ENGINEER MAGNESIUM Routine 05/05/2024 1:45 AM ELECTRONICS ENGINEER PHOSPHORUS Routine 05/05/2024 1:45 AM ELECTRONICS ENGINEER DIFFERENTIAL AUTO Routine 05/05/2024 1:4 5 AM ELECTRONICS ENGINEER BASIC METABOLIC PANEL Routine 05/05/2024 1:45 AM ELECTRONICS ENGINEER CBC WITH AUTO DIFFERENTIAL Routine 05/05/2024 1:45 AM ELECTRONICS ENGINEER VOLUME AND PERIOD, URINE, 24 HOUR Timed 05/04/2024 9:41 AM ELECTRONICS ENGINEER METANEPHRINES, URINE, 24 HOUR RESULT Timed 05/04/2024 8:45 AM ELECTRONICS ENGINEER METANEPHRINES, URINE, 24 HOUR Timed 05/04/2024 8:45 AM ELECTRONICS ENGINEER EGFR Routine 05/04/2024 3:45 AM ELECTRONICS ENGINEER BASIC METABOLIC PANEL Routine 05/04/2024 3:45 AM ELECTRONICS ENGINEER DIFFERENTIAL AUTO Routine 05/04/2024 3:4 5 AM ELECTRONICS ENGINEER CBC WITH AUTO DIFFERENTIAL Routine 05/04/2024 3:45 AM ELECTRONICS ENGINEER MAGNESIUM Routine 05/04/2024 3:45 AM ELECTRONICS ENGINEER PHOSPHORUS Routine 05/04/2024 3:45 AM ELECTRONICS ENGINEER US RENAL DOPPLER IP Routine 05/03/2024 9:40 AM ELECTRONICS ENGINEER US KIDNEY COMPLETE IP Routine 05/03/2024 7: 27 AM ELECTRONICS ENGINEER EGFR Routine 05/03/2024 5:28 AM ELECTRONICS ENGINEER DIFFERENTIAL AUTO Routine 05/03/2024 5:2 8 AM ELECTRONICS ENGINEER PHOSPHORUS Routine 05/03/2024 5:28 AM ELECTRONICS ENGINEER MAGNESIUM Routine 05/03/2024 5:28 AM ELECTRONICS ENGINEER CBC WITH AUTO DIFFERENTIAL Routine 05/03/2024 5:28 AM ELECTRONICS ENGINEER COMPREHENSIVE METABOLIC PANEL Routine 05/03/2024 5:28 AM ELECTRONICS ENGINEER PROTEIN / CREATININE RATIO, URINE, RANDOM Routine 05/02/2024 5:41 PM ELECTRONICS ENGINEER EGFR Routine 05/02/2024 4:21 PM ELECTRONICS ENGINEER ERYTHROCYTE SEDIMENTATION RATE Routine 05/02/2024 4:21 PM ELECTRONICS ENGINEER CRP (ACUTE PHASE) Routine 05/02/2024 4:2 1 PM ELECTRONICS ENGINEER D-DIMER, QUANTITATIVE Routine 05/02/2024 4:21 PM ELECTRONICS ENGINEER RENIN ACTIVITY Routine 05/02/2024 4:21 PM ELECTRONICS ENGINEER ALDOSTERONE Routine 05/02/2024 4:21 PM ELECTRONICS ENGINEER CORTISOL Timed 05/02/2024 4:21 PM ELECTRONICS ENGINEER METANEPHRINES, FRACTIONATED FREE, BLOOD Routine 05/02/2024 4:21 PM ELECTRONICS ENGINEER MAGNESIUM Routine 05/02/2024 4:21 PM ELECTRONICS ENGINEER BASIC METABOLIC PANEL Routine 05/02/2024 4:21 PM ELECTRONICS ENGINEER HIV 1/2 ANTIBODY PLUS P24 ANTIGEN Routine 05/02/2024 4:21 PM ELECTRONICS ENGINEER TROPONIN T HIGH-SENSITIVITY 6-HOUR Timed 05/02/2024 10:58 AM ELECTRONICS ENGINEER CRITICAL CARE Routine 05/02/2024 10:19 AM ELECTRONICS ENGINEER Acute on chronic congestive heart failure, unspecified heart failure type (HCC) Chronic systolic heart failure (CMS/HCC) (HCC) TROPONIN T HIGH-SENSITIVITY 4-HR Timed 05/02/2024 8:13 AM ELECTRONICS ENGINEER FOLATE Routine 05/02/2024 7:59 AM ELECTRONICS ENGINEER VITAMIN B12 Routine 05/02/2024 7:59 AM ELECTRONICS ENGINEER URINALYSIS, MICROSCOPIC ONLY Routine 05/02/2024 7:51 AM ELECTRONICS ENGINEER DRUGS OF ABUSE SCREEN, URINE WITH REFLEX CONFIRMATION Routine 05/02/2024 7:51 AM ELECTRONICS ENGINEER URINALYSIS AND REFLEX TO MICROSCOPIC AND CULTURE Routine 05/02/2024 7:51 AM ELECTRONICS ENGINEER CRP (ACUTE PHASE) Routine 05/02/2024 6:2 5 AM ELECTRONICS ENGINEER THYROID FUNCTION CASCADE Routine 05/02/2024 6:25 AM ELECTRONICS ENGINEER IRON PROFILE W/ IBC Routine 05/02/2024 6 :25 AM ELECTRONICS ENGINEER FERRITIN Routine 05/02/2024 6:25 AM ELECTRONICS ENGINEER TROPONIN T HIGH-SENSITIVITY 2-HOUR Timed 05/02/2024 6:25 AM ELECTRONICS ENGINEER RETICULOCYTES Routine 05/02/2024 4:41 AM ELECTRONICS ENGINEER EGFR STAT 05/02/2024 4:41 AM ELECTRONICS ENGINEER DIFFERENTIAL AUTO STAT 05/02/2024 4:4 1 AM ELECTRONICS ENGINEER PRO B-TYPE NATRIURETIC PEPTIDE STAT 05/02/2024 4:41 AM ELECTRONICS ENGINEER TROPONIN T HIGH-SENSITIVITY SERIES (BASELINE, 2HR, 4HR, 6HR) STAT 05/02/2024 4:41 AM ELECTRONICS ENGINEER COMPREHENSIVE METABOLIC PANEL STAT 05/02/2024 4:41 AM ELECTRONICS ENGINEER CBC WITH AUTO DIFFERENTIAL STAT 05/02/2024 4:41 AM ELECTRONICS ENGINEER XR CHEST 1 VIEW ED 05/02/2024 4:29 AM ELECTRONICS ENGINEER CO CRITICAL CARE ILL/INJURED PATIENT INIT 30-74 MIN Routine 05/02/2024 4:23 AM ELECTRONICS ENGINEER ECG 12-LEAD STAT 05/02/2024 4:22 AM ELECTRONICS ENGINEER LIPID PANEL STAT 04/16/2024 8:00 AM ELECTRONICS ENGINEER MANUAL DIFFERENTIAL STAT 04/16/2024 8 :00 AM ELECTRONICS ENGINEER EGFR STAT 04/16/2024 8:00 AM ELECTRONICS ENGINEER DIFFERENTIAL AUTO STAT 04/16/2024 8:0 0 AM ELECTRONICS ENGINEER BASIC METABOLIC PANEL STAT 04/16/2024 8:00 AM ELECTRONICS ENGINEER HEPATIC FUNCTION PANEL STAT 04/16/2024 8:00 AM ELECTRONICS ENGINEER CBC WITH AUTO DIFFERENTIAL STAT 04/16/2024 8:00 AM ELECTRONICS ENGINEER MAGNESIUM STAT 04/16/2024 8:00 AM ELECTRONICS ENGINEER TRANSTHORACIC ECHO (TTE) COMPLETE W DOPPLER/CF WO CONTRAST Routine 04/15/2024 3:37 PM ELECTRONICS ENGINEER EGFR Timed 04/15/2024 12:45 PM ELECTRONICS ENGINEER MAGNESIUM Timed 04/15/2024 12:45 PM ELECTRONICS ENGINEER BASIC METABOLIC PANEL Timed 04/15/2024 12:45 PM ELECTRONICS ENGINEER MAGNESIUM Routine 04/15/2024 2:50 AM ELECTRONICS ENGINEER EGFR Routine 04/15/2024 2:50 AM ELECTRONICS ENGINEER DIFFERENTIAL AUTO Routine 04/15/2024 2:5 0 AM ELECTRONICS ENGINEER CBC WITH AUTO DIFFERENTIAL Routine 04/15/2024 2:50 AM ELECTRONICS ENGINEER COMPREHENSIVE METABOLIC PANEL Routine 04/15/2024 2:50 AM ELECTRONICS ENGINEER POCT GLUCOSE DEVICE Routine 04/14/2024 4 :29 PM ELECTRONICS ENGINEER TROPONIN T HIGH-SENSITIVITY 6-HOUR Timed 04/14/2024 3:49 PM ELECTRONICS ENGINEER NM PULMONARY PERFUSION IMAGING ED 04/14/2024 2:28 PM ELECTRONICS ENGINEER TROPONIN T HIGH-SENSITIVITY 2-HOUR Timed 04/14/2024 11:32 AM ELECTRONICS ENGINEER EGFR STAT 04/14/2024 9:23 AM ELECTRONICS ENGINEER DIFFERENTIAL AUTO STAT 04/14/2024 9:2 3 AM ELECTRONICS ENGINEER PRO B-TYPE NATRIURETIC PEPTIDE STAT 04/14/2024 9:23 AM ELECTRONICS ENGINEER TROPONIN T HIGH-SENSITIVITY SERIES (BASELINE, 2HR, 4HR, 6HR) STAT 04/14/2024 9:23 AM ELECTRONICS ENGINEER CBC WITH AUTO DIFFERENTIAL STAT 04/14/2024 9:23 AM ELECTRONICS ENGINEER COMPREHENSIVE METABOLIC PANEL STAT 04/14/2024 9:23 AM ELECTRONICS ENGINEER XR CHEST 1 VIEW ED 04/14/2024 9:20 AM ELECTRONICS ENGINEER INFLUENZA A/B, RSV, AND COVID-19 PCR STAT 04/14/2024 9:10 AM ELECTRONICS ENGINEER ECG 12-LEAD STAT 04/14/2024 8:58 AM ELECTRONICS ENGINEER from Last 3 Months Results * (ABNORMAL) eGFR (05/24/2024 8:10 PM ELECTRONICS ENGINEER) [facility] Signature eGFR 24(L) >=60 mL/min/1. 73 m2 Comment: [...] last reviewed 2021. Blood 05/24/2024 8:10 PM ELECTRONICS ENGINEER 05/24/2024 8:50 PM ELECTRONICS ENGINEER us Ying Reagan MD LAB BLOOD ORDERABLES Final Result [facility] [place] [address] * (ABNORMAL) CBC without differential (05/24/2024 8:10 PM ELECTRONICS ENGINEER) WBC 4.9 3.8 - 9.9 K/cumm Hgb 11.2(L) 13.0 - 17.5 g/dL [facility] Hct 38.1(L) 38.9 - 50.3 % [facility] Plt 351 150 - 400 K/cumm [facility] MPV 9.5 9.1 - 12.3 fL [facility] RBC 4.39 4.30 - 5.80 M/cumm [facility] MCV 86.8 81.3 - 96.4 fL [facility] MCH 25.5(L) 27.1 - 33.3 pg [facility] MCHC 29.4(L) 32.3 - 35.7 g/dL [facility] RDW CV 20.4(H) 11.1 - 14.9 % [facility] RDW SD 64.2(H) 35.7 - 48.1 fL [facility] NRBC abs 0.00 0.00 - 0.01 K/cumm [facility] Blood 05/24/2024 8:10 PM ELECTRONICS ENGINEER 05/24/2024 8:49 PM ELECTRONICS ENGINEER Ying Reagan MD LAB BLOOD ORDERABLES Final Result Performing Organization Address [facility] Co de Phone Number [facility] [place] [address] * Magnesium (05/24/2024 8:10 PM ELECTRONICS ENGINEER) Pathologist [facility] Magnesium 2.2 1.4 - 2.5 mg/dL Blood 05/24/2024 8:10 PM ELECTRONICS ENGINEER 05/24/2024 8:50 PM ELECTRONICS ENGINEER Ying Reagan MD LAB BLOOD ORDERABLES Final Result Performing Organization Address [facility] Phone Number [facility] [place] [address] * (ABNORMAL) Basic metabolic panel (05/24/2024 8:10 PM ELECTRONICS ENGINEER) Pathologist [facility] Sodium 141 135 - 145 mmol/L Potassium, pl 3.9 3.3 - 4.9 mmol/L [facility] Chloride 103 97 - 110 mmol/L [facility] CO2 26 22 - 32 mmol/L [facility] Anion gap 12 2 - 15 mmol/L [facility] BUN 31(H) 6 - 25 mg/dL [facility] Creatinine 3.26(H) 0.80 - 1.30 mg/dL [facility] Glucose 107 70 - 199 mg/dL [facility] Comment: Interpretive Data Fasting glucose >/= [...] Calcium 8.7 8.5 - 10.3 mg/dL [facility] Blood 05/24/2024 8:10 PM ELECTRONICS ENGINEER 05/24/2024 8:50 PM ELECTRONICS ENGINEER us Ying Reagan MD LAB BLOOD ORDERABLES Final Result [facility] [place] [address] * (ABNORMAL) eGFR (05/23/2024 10:53 PM ELECTRONICS ENGINEER) eGFR 24(L) >=60 mL/min/1. 73 m2 Comment: [...] reviewed 2021. Blood 05/23/2024 10:5 3 PM ELECTRONICS ENGINEER 05/23/2024 11:36 PM ELECTRONICS ENGINEER us Ying Reagan MD LAB BLOOD ORDERABLES Final [facility] [place] [address] * (ABNORMAL) CBC without differential (05/23/2024 10:53 PM ELECTRONICS ENGINEER) WBC 5.1 3.8 - 9.9 K/cumm Hgb 10.8(L) 13.0 - 17.5 g/dL [facility] Hct 35.7(L) 38.9 - 50.3 % [facility] Plt 245 150 - 400 K/cumm [facility] MPV 9.8 9.1 - 12.3 fL [facility] RBC 4.16(L) 4.30 - 5.80 M/cumm [facility] MCV 85.8 81.3 - 96.4 fL [facility] MCH 26.0(L) 27.1 - 33.3 pg [facility] MCHC 30.3(L) 32.3 - 35.7 g/dL [facility] RDW CV 21.1(H) 11.1 - 14.9 % [facility] RDW SD 65.1(H) 35.7 - 48.1 fL [facility] NRBC abs 0.00 0.00 - 0.01 K/cumm [facility] Blood 05/23/2024 10:5 3 PM ELECTRONICS ENGINEER 05/23/2024 11:25 PM ELECTRONICS ENGINEER us Ying Reagan MD LAB BLOOD ORDERABLES Final Result [facility] [place] [address] * Magnesium (05/23/2024 10:53 PM ELECTRONICS ENGINEER) Magnesium 1.9 1.4 - 2.5 mg/dL Blood 05/23/2024 10:5 3 PM ELECTRONICS ENGINEER 05/23/2024 11:25 PM ELECTRONICS ENGINEER Ying Reagan MD LAB BLOOD ORDERABLES Final Result [facility] [place] [address] * (ABNORMAL) Basic metabolic panel (05/23/2024 10:53 PM ELECTRONICS ENGINEER) [facility] Sodium 139 135 - 145 mmol/L Potassium, pl 4.1 3.3 - 4.9 mmol/L [facility] Chloride 104 97 - 110 mmol/L [facility] CO2 22 22 - 32 mmol/L [facility] Anion gap 13 2 - 15 mmol/L [facility] BUN 34(H) 6 - 25 mg/dL [facility] Creatinine 3.17(H) 0.80 - 1.30 mg/dL [facility] Glucose 83 70 - 199 mg/dL [facility] Comment: Interpretive Data Fasting glucose >/= [...] 2022. Calcium 8.2(L) 8.5 - 10.3 mg/dL [facility] Blood 05/23/2024 10:5 3 PM ELECTRONICS ENGINEER 05/23/2024 11:25 PM ELECTRONICS ENGINEER us Ying Reagan MD LAB BLOOD ORDERABLES Final Result Performing Organization Address City/[facility]/ZIP Co de Phone Number [facility] [place] [address] * (ABNORMAL) Protein, urine, 24 hour (05/23/2024 9:00 AM ELECTRONICS ENGINEER) Protein, 24 hr, ur 2,694(H) 0 - 150 mg/24H Urine/Blood 05/23/2024 9:00 AM ELECTRONICS ENGINEER 05/23/2024 3:26 PM ELECTRONICS ENGINEER us Momo Catherine MD LAB URINE ORDERABLES Final Resul t [facility] [place] [address] * (ABNORMAL) eGFR (05/23/2024 9:00 AM ELECTRONICS ENGINEER) eGFR 23(L) >=60 mL/min/1. 73 m2 Comment: [...] last reviewed 2021. Urine/Blood 05/23/2024 9:00 AM ELECTRONICS ENGINEER 05/23/2024 3:26 PM ELECTRONICS ENGINEER us Momo Catherine MD LAB BLOOD ORDERABLES Final Resul t Performing Organization Address [facility] Co de Phone Number [facility] [place] [address] * Volume and period, urine, 24 hour (05/23/2024 9:00 AM ELECTRONICS ENGINEER) Volume, ur 5,600 mL Period, Urine Collection 1,440 min [facility] Urine/Blood 05/23/2024 9:00 AM ELECTRONICS ENGINEER 05/23/2024 3:26 PM ELECTRONICS ENGINEER us Ying Reagan MD LAB URINE ORDERABLES Final Result Performing Organization Address [facility] de Phone Number [facility] [place] [address] * (ABNORMAL) Creatinine clearance, urine, 24 hour (05/23/2024 9:00 AM ELECTRONICS ENGINEER) Creatinine Clearance 40(L) 60 - 130 mL/min Creatinine, 24 hr, ur 1.9 0.8 - 2.2 g/24H [facility] Urine/Blood 05/23/2024 9:00 AM ELECTRONICS ENGINEER 05/23/2024 3:26 PM ELECTRONICS ENGINEER us Ying Reagan MD LAB URINE ORDERABLES Final Result Performing Organization Address [facility] [place] [address] * (ABNORMAL) Creatinine (05/23/2024 9:00 AM ELECTRONICS ENGINEER) Creatinine 3.31(H) 0.80 - 1.30 mg/dL Urine/Blood 05/23/2024 9:00 AM ELECTRONICS ENGINEER 05/23/2024 3:26 PM ELECTRONICS ENGINEER us Momo Catherine MD LAB BLOOD ORDERABLES Final Resul t Performing Organization Address City/[facility] Co de Phone Number ELVI Cota [facility] [place] [address] * (ABNORMAL) eGFR (05/22/2024 8:21 PM ELECTRONICS ENGINEER) eGFR 22(L) >=60 mL/min/1. 73 m2 Comment: [...] last reviewed 2021. Blood 05/22/2024 8:21 PM ELECTRONICS ENGINEER 05/22/2024 9:02 PM ELECTRONICS ENGINEER us Ying Reagan MD LAB BLOOD ORDERABLES Final Result Performing Organization Address City/[facility] Co de Phone Number ELVI NIÑO Cipriano [facility] [place] [address] * (ABNORMAL) CBC without differential (05/22/2024 8:21 PM ELECTRONICS ENGINEER) Pathologist [facility] WBC 5.7 3.8 - 9.9 K/cumm Hgb 10.0(L) 13.0 - 17.5 g/dL [facility] Hct 33.0(L) 38.9 - 50.3 % [facility] Plt 342 150 - 400 K/cumm [facility] MPV 10.1 9.1 - 12.3 fL [facility] RBC 3.90(L) 4.30 - 5.80 M/cumm [facility] MCV 84.6 81.3 - 96.4 fL [facility] MCH 25.6(L) 27.1 - 33.3 pg [facility] MCHC 30.3(L) 32.3 - 35.7 g/dL [facility] RDW CV 20.9(H) 11.1 - 14.9 % [facility] RDW SD 62.9(H) 35.7 - 48.1 fL [facility] NRBC abs 0.00 0.00 - 0.01 K/cumm [facility] Blood 05/22/2024 8:21 PM ELECTRONICS ENGINEER 05/22/2024 9:06 PM ELECTRONICS ENGINEER us Ying Reagan MD LAB BLOOD ORDERABLES Final Result Performing Organization Address City/[facility] Co de Phone Number [facility] [place] [address] * Magnesium (05/22/2024 8:21 PM ELECTRONICS ENGINEER) [facility] Magnesium 1.9 1.4 - 2.5 mg/dL Blood 05/22/2024 8:21 PM ELECTRONICS ENGINEER 05/22/2024 9:02 PM ELECTRONICS ENGINEER Ying Reagan MD LAB BLOOD ORDERABLES Final Result [facility] [place] [address] * Folate (05/22/2024 8:21 PM ELECTRONICS ENGINEER) [facility] Folic acid 11.2 >=5.0 ng/mL Blood 05/22/2024 8:21 PM ELECTRONICS ENGINEER 05/22/2024 9:02 PM ELECTRONICS ENGINEER Ying Reagan MD LAB BLOOD ORDERABLES Final Result [facility] [place] [address] * Ferritin (05/22/2024 8:21 PM ELECTRONICS ENGINEER) [facility] Ferritin 228 30 - 400 ng/mL Blood 05/22/2024 8:21 PM ELECTRONICS ENGINEER 05/22/2024 9:02 PM ELECTRONICS ENGINEER Ying Reagan MD LAB BLOOD ORDERABLES Final Result Performing Organization Address City/[facility]/ZIP Co de Phone Number [facility] [place] [address] * Vitamin B12 (05/22/2024 8:21 PM ELECTRONICS ENGINEER) [facility] Vitamin B12 467 230 - 1,250 pg/mL Blood 05/22/2024 8:21 PM ELECTRONICS ENGINEER 05/22/2024 9:02 PM ELECTRONICS ENGINEER Result [facility] Ying Reagan MD LAB BLOOD ORDERABLES Final Result Performing Organization Address City/[facility] [place] [address] * (ABNORMAL) Basic metabolic panel (05/22/2024 8:21 PM ELECTRONICS ENGINEER) [facility] Sodium 141 135 - 145 mmol/L Potassium, pl 4.0 3.3 - 4.9 mmol/L [facility] Chloride 104 97 - 110 mmol/L [facility] CO2 26 22 - 32 mmol/L [facility] Anion gap 11 2 - 15 mmol/L [facility] BUN 36(H) 6 - 25 mg/dL [facility] Creatinine 3.45(H) 0.80 - 1.30 mg/dL [facility] Glucose 105 70 - 199 mg/dL [facility] Comment: Interpretive Data Fasting glucose >/= [...] 2022. Calcium 8.4(L) 8.5 - 10.3 mg/dL [facility] Blood 05/22/2024 8:21 PM ELECTRONICS ENGINEER 05/22/2024 9:02 PM ELECTRONICS ENGINEER us Ying Reagan MD LAB BLOOD ORDERABLES Final Result [facility] One [facility] [place] [address] * (ABNORMAL) Urinalysis reflex to microscopic and culture Urine (05/22/2024 7:49 AM ELECTRONICS ENGINEER) Color, ur Straw Yellow Clarity, ur Clear Clear [facility] Specific gravity, ur 1.006 1.003 - 1.030 [facility] pH, urine 6.5 [facility] Comment: Interpretive Data ? Urine pH is affected by diet, medications, systemic acid-base disturbances, and renal tubular function. ??pH may affect urinary stone formation. ??For example, urine pH below 6.0 may help reduce the tendency for calcium phosphate stones and pH greater than 6.0 may reduce the tendency for uric acid stone formation. Source: [facility] [employer] [place] Current Interpretive Data was last revised on 2017 Protein, ur ql 1+(A) Negative [facility] Glucose, ur ql Negative Negative [facility] Ketones, ur Negative Negative [facility] Bilirubin, ur Negative Negative [facility] Blood, ur Negative Negative [facility] Urobilinogen, ur <2.0 <2.0 mg/dL [facility] Nitrite, ur Negative Negative [facility] Leukocyte esterase, ur Negative Negative [facility] UA reflex comment Reflex to microscopic UA will be performed. [facility] Urine 05/22/2024 7:49 AM ELECTRONICS ENGINEER 05/22/2024 8:58 AM ELECTRONICS ENGINEER us Ying Reagan MD LAB MICROBIOLOGY - G ENERAL ORDERABLES Final Result Performing Organization Address [facility] Co de Phone Number [facility] [place] [address] * (ABNORMAL) Albumin Creatinine Ratio, Urine (05/22/2024 7:49 AM ELECTRONICS ENGINEER) Albumin Ur 192.0 mg/L Comment: Interpretive Data No reference range established. Current interpretive data was last revised 2018. Creatinine Ur 21.5 mg/dL [facility] Comment: Interpretive Data No reference range established. Current interpretive data was last revised 2018. Albumin Creatinine Ratio, Ur 893(H) 1 - 29 mg/g [facility] Urine 05/22/2024 7:49 AM ELECTRONICS ENGINEER 05/22/2024 9:00 AM ELECTRONICS ENGINEER us Ying Reagan MD LAB URINE ORDERABLES Final Result Performing Organization Address City/[facility]/ZIP Co de Phone Number [facility] [place] [address] * Sodium, urine, random (05/22/2024 7:49 AM ELECTRONICS ENGINEER) Sodium, ur 115 mmol/L Comment: Interpretive Data No reference range established. Current interpretive data was last revised 2018. Urine 05/22/2024 7:49 AM ELECTRONICS ENGINEER 05/22/2024 8:58 AM ELECTRONICS ENGINEER Ying Reagan MD LAB URINE ORDERABLES Final Result Performing Organization Address [facility] Co de Phone Number [facility] [place] [address] * Urinalysis, microscopic only (05/22/2024 7:49 AM ELECTRONICS ENGINEER) WBC, ur 0-5 0 - 5 /HPF RBC, ur 0-2 0 - 2 /HPF [facility] Culture Reflex Comment Reflex conditions for urine culture (WBC >10) not met. [facility] Urine 05/22/2024 7:49 AM ELECTRONICS ENGINEER 05/22/2024 8:58 AM ELECTRONICS ENGINEER Ying Reagan MD LAB URINE ORDERABLES Final Result Performing Organization Address [facility] de Phone Number [facility] [place] [address] * (ABNORMAL) eGFR (05/22/2024 6:14 AM ELECTRONICS ENGINEER) eGFR 23(L) >=60 mL/min/1. 73 m2 Comment: [...] last reviewed 2021. Blood 05/22/2024 6:14 AM ELECTRONICS ENGINEER 05/22/2024 7:55 AM ELECTRONICS ENGINEER us Ying Reagan MD LAB BLOOD ORDERABLES Final Result Performing Organization Address City/[facility]/ZIP Co de Phone Number [facility] [place] [address] * (ABNORMAL) Iron profile w/ IBC (05/22/2024 6:14 AM ELECTRONICS ENGINEER) Pathologist [facility] Iron 38(L) 50 - 150 mcg/dL TIBC 169(L) 250 - 400 mcg/dL [facility] Transferrin saturation 22 20 - 50 % [facility] Blood 05/22/2024 6:14 AM ELECTRONICS ENGINEER 05/22/2024 6:45 AM ELECTRONICS ENGINEER us Sincere Isidro MD LAB BLOOD ORDERABLES Final Result Performing Organization Address City/[facility]/ZIP Co de Phone Number [facility] [place] [address] * HIV 1/2 Antibody plus p24 Antigen Blood (05/22/2024 6:14 AM ELECTRONICS ENGINEER) Pathologist [facility] HIV 1/2 ab + p24 ag Nonreactive Nonreactive Comment:Nonreactive for HIV- 1 antigen and HIV-1/HIV-2 antibodies. No laboratory evidence of HIV infection. If acute HIV infection is suspected, consider testing for HIV-1 RNA. Current interpretive data was last revised on 22. Blood 05/22/2024 6:14 AM ELECTRONICS ENGINEER 05/22/2024 6:44 AM ELECTRONICS ENGINEER Sincere Isidro MD LAB MICROBIOLOGY - GENERAL ORDERABLES Final Result Performing Organization Address City/[facility] Co de Phone Number [facility] [place] [address] * RPR Blood (05/22/2024 6:14 AM ELECTRONICS ENGINEER) RPR Nonreactive Nonreactive Blood 05/22/2024 6:14 AM ELECTRONICS ENGINEER 05/22/2024 6:44 AM ELECTRONICS ENGINEER us Sincere Isidro MD LAB MICROBIOLOGY - GENERAL ORDERABLES Final Result Performing Organization Address [facility] [place] [address] * Ferritin (05/22/2024 6:14 AM ELECTRONICS ENGINEER) Ferritin 239 30 - 400 ng/mL Blood 05/22/2024 6:14 AM ELECTRONICS ENGINEER 05/22/2024 6:45 AM ELECTRONICS ENGINEER us Ying Reagan MD LAB BLOOD ORDERABLES Final Result Performing Organization Address [facility] Co de Phone Number [facility] [place] [address] * (ABNORMAL) Creatinine (05/22/2024 6:14 AM ELECTRONICS ENGINEER) Creatinine 3.31(H) 0.80 - 1.30 mg/dL Blood 05/22/2024 6:14 AM ELECTRONICS ENGINEER 05/22/2024 7:55 AM ELECTRONICS ENGINEER us Ying Reagan MD LAB BLOOD ORDERABLES Final Result Performing Organization Address [facility] Co de Phone Number [facility] [place] [address] * Lipid panel (05/22/2024 6:14 AM ELECTRONICS ENGINEER) [facility] Cholesterol 122 30 - 199 mg/dL Comment: [...] revised on 2018. Triglycerides 46 <=149 mg/dL ELVI NIÑO Comment: Interpretive Data Ages [...] revised on 2018. HDL 54 >=40 mg/dL ELVI NIÑO Comment: Interpretive Data Ages [...] on 2018. LDL, calculated 57 <=129 mg/dL ELVI [facility] Comment: Interpretive Data Ages < or [...] last revised on 2018. Chol/HDL ratio 2 [facility] Blood 05/22/2024 6:14 AM ELECTRONICS ENGINEER 05/22/2024 6:45 AM ELECTRONICS ENGINEER us Sincere Isidro MD LAB BLOOD ORDERABLES Final Result Performing Organization Address [facility] de Phone Number [facility] [place] [address] * Troponin I high-sensitivity 4-hour (05/22/2024 2:15 AM ELECTRONICS ENGINEER) Trop I hs 33 <=35 ng/L Comment: Interpretive Data For further hscTnI resources including the diagnostic algorithm and an aid in interpretation, copy and paste this link: https://bjhlab.testcatalog.org/show/hsTrop-[email or web address] Current Interpretive Data last revised 2019. Trop I hs delta -7 ng/L [facility] Trop I hs interp Equivocal [facility] Blood 05/22/2024 2:15 AM ELECTRONICS ENGINEER 05/22/2024 2:30 AM ELECTRONICS ENGINEER us Edward Rueda MD LAB BLOOD ORDERABLES Abigail l Result Performing Organization Address [facility] Co de Phone Number [facility] [place] [address] * CO CRITICAL CARE ILL/INJURED PATIENT INIT 30-74 MIN (05/22/2024 1:57 AM ELECTRONICS ENGINEER) Narrative New Patel MD - 05/22/2024 1:57 AM ELECTRONICS ENGINEER New Patel MD ? 05/22/2024 ??2:04 AM [...] (baseline, 2hr, 4hr, 6hr) (05/21/2024 10:13 PM ELECTRONICS ENGINEER) Trop I hs 40(H) <=35 ng/L Comment: Interpretive Data For further hscTnI resources including the diagnostic algorithm and an aid in interpretation, copy and paste this link: https://bjhlab.testcatalog.org/show/hsTrop-1 Current Interpretive Data last revised 2019. Blood 05/21/2024 10:1 3 PM ELECTRONICS ENGINEER 05/21/2024 11:09 PM ELECTRONICS ENGINEER New Patel MD LAB BLOOD ORDERABLES Abigail l Result [facility] [place] [address] * (ABNORMAL) eGFR (05/21/2024 10:13 PM ELECTRONICS ENGINEER) [facility] eGFR 23(L) >=60 mL/min/1. 73 m2 Comment: [...] reviewed 2021. Blood 05/21/2024 10:1 3 PM ELECTRONICS ENGINEER 05/21/2024 11:09 PM ELECTRONICS ENGINEER us New Patel MD LAB BLOOD ORDERABLES Abigail estella Result ELVI [facility] [place] [address] * Differential, auto (05/21/2024 10:13 PM ELECTRONICS ENGINEER) [facility] Neutrophil abs 4.3 1.5 - 6.5 K/cumm Imm gran abs 0.0 0.0 - 0.1 K/cumm [facility] Lymphocyte abs 1.0 0.8 - 3.3 K/cumm [facility] Monocyte abs 0.3 0.2 - 0.8 K/cumm [facility] Eosinophil abs 0.1 0.0 - 0.5 K/cumm [facility] Basophil abs 0.0 0.0 - 0.1 K/cumm [facility] Neutrophil pct 74.8 % [facility] Comment: Interpretive Data Percent cell count reference ranges are not reported, since discordance with absolute values may lead to misinterpretation of CBC data. Current Interpretive Data was last revised on 2017. Imm gran pct 0.5 % [facility] Comment: Interpretive Data Percent cell count reference ranges are not reported, since discordance with absolute values may lead to misinterpretation of CBC data. Current Interpretive Data was last revised on 2017. Lymphocyte pct 17.9 % [facility] Comment: Interpretive Data Percent cell count reference ranges are not reported, since discordance with absolute values may lead to misinterpretation of CBC data. Current Interpretive Data was last revised on 2017. Monocyte pct 4.9 % [facility] Comment: Interpretive Data Percent cell count reference ranges are not reported, since discordance with absolute values may lead to misinterpretation of CBC data. Current Interpretive Data was last revised on 2017. Eosinophil pct 1.6 % [facility] Comment: Interpretive Data Percent cell count reference ranges are not reported, since discordance with absolute values may lead to misinterpretation of CBC data. Current Interpretive Data was last revised on 2017. Basophil pct 0.3 % [facility] Comment: Interpretive Data Percent cell count reference ranges are not reported, since discordance with absolute values may lead to misinterpretation of CBC data. Current Interpretive Data was last revised on 2017. Blood 05/21/2024 10:1 3 PM ELECTRONICS ENGINEER 05/21/2024 11:09 PM ELECTRONICS ENGINEER us New Patel MD LAB BLOOD ORDERABLES Abigail soria Result [facility] [place] [address] * (ABNORMAL) Pro B-type natriuretic peptide (05/21/2024 10:13 PM ELECTRONICS ENGINEER) NT-proBNP 9,079(H) <=300 pg/mL Comment: Interpretive Comments: [...] Heart J. 2006:27:330-337. 2. Gisela BURTON, Devin AM. J. AM Nancy Cardiol: Cardiovasc Imag. 2009;2: 216- 225. Interpretive Data Last Revised Date: 2018. Blood 05/21/2024 10:1 3 PM ELECTRONICS ENGINEER 05/21/2024 11:09 PM ELECTRONICS ENGINEER New Patel MD LAB BLOOD ORDERABLES Abigail l Result Performing Organization Address [facility]/ZIP Co de Phone Number [facility] [place] [address] * (ABNORMAL) CBC with auto differential (05/21/2024 10:13 PM ELECTRONICS ENGINEER) [facility] WBC 5.7 3.8 - 9.9 K/cumm Hgb 10.4(L) 13.0 - 17.5 g/dL [facility] Hct 34.5(L) 38.9 - 50.3 % [facility] Plt 326 150 - 400 K/cumm [facility] MPV 9.8 9.1 - 12.3 fL [facility] RBC 4.01(L) 4.30 - 5.80 M/cumm [facility] MCV 86.0 81.3 - 96.4 fL [facility] MCH 25.9(L) 27.1 - 33.3 pg [facility] MCHC 30.1(L) 32.3 - 35.7 g/dL [facility] RDW CV 20.7(H) 11.1 - 14.9 % [facility] RDW SD 64.3(H) 35.7 - 48.1 fL [facility] NRBC abs 0.00 0.00 - 0.01 K/cumm [facility] Blood 05/21/2024 10:1 3 PM ELECTRONICS ENGINEER 05/21/2024 11:09 PM ELECTRONICS ENGINEER New Patel MD LAB BLOOD ORDERABLES Abigail l Result Performing Organization Address [facility]/ZIP Co de Phone Number [facility] [place] [address] * (ABNORMAL) Comprehensive metabolic panel (05/21/2024 10:13 PM ELECTRONICS ENGINEER) Sodium 142 135 - 145 mmol/L Potassium, pl 3.8 3.3 - 4.9 mmol/L [facility] Chloride 105 97 - 110 mmol/L [facility] CO2 26 22 - 32 mmol/L [facility] Anion gap 11 2 - 15 mmol/L [facility] BUN 34(H) 6 - 25 mg/dL [facility] Creatinine 3.34(H) 0.80 - 1.30 mg/dL [facility] Glucose 135 70 - 199 mg/dL [facility] Comment: Interpretive Data Fasting glucose >/= [...] 2022. Calcium 9.1 8.5 - 10.3 mg/dL [facility] Bilirubin, total 0.5 0.1 - 1.2 mg/dL [facility] Protein, pl 7.7 6.5 - 8.5 g/dL [facility] Albumin 3.5 3.5 - 5.0 g/dL [facility] Alk phos 128 40 - 130 Units/L [facility] ALT 50 7 - 55 Units/L [facility] AST 32 10 - 50 Units/L [facility] Blood 05/21/2024 10:1 3 PM ELECTRONICS ENGINEER 05/21/2024 11:09 PM ELECTRONICS ENGINEER us eNw Patel MD LAB BLOOD ORDERABLES Abigail soria Result [facility] [place] [address] * XR Chest PA Lateral 2 Views (05/21/2024 8:12 PM ELECTRONICS ENGINEER) Anatomical Region Laterality Modality Body, Chest N/A Computed Radiogr aphy 05/21/2024 8:43 PM ELECTRONICS ENGINEER Impressions 05/21/2024 8:46 PM ELECTRONICS ENGINEER Comparison 05/02/2024 No focal consolidation or definite [...] Elias Sousa M.D. Narrative 05/21/2024 8:46 PM ELECTRONICS ENGINEER EXAMINATION: 2 view chest radiograph Procedure Note [...] it. Electronically signed by: Elias Sousa M.D. New Patel MD IMG XR PROCEDURES Final R esult * ECG 12-LEAD (05/21/2024 8:11 PM ELECTRONICS ENGINEER) Narrative [facility] - 05/21/2024 8:11 PM ELECTRONICS ENGINEER Florentino Macias MD ? 05/21/2024 ??8:12 PM [...] P in V3 Florentino Macias MD 05/21/242011 New Patel MD ECG ORDERABLES Final Res ult [facility] * (ABNORMAL) eGFR (05/09/2024 5:25 AM ELECTRONICS ENGINEER) eGFR 22(L) >=60 mL/min/1. 73 m2 Comment: [...] was last reviewed 2021. Testing performed by: [address] [address] Blood 05/09/2024 5:25 AM ELECTRONICS ENGINEER 05/09/2024 5:59 AM ELECTRONICS ENGINEER Edward Sauer MD LAB BLOOD ORDERABLES Final R esult [facility] [address] [facility] Department [place] [address] * Differential, auto (05/09/2024 5:25 AM ELECTRONICS ENGINEER) Neutrophil abs 4.8 1.5 - 6.5 K/cumm Comment:Testing performed by : [address] [address] Imm gran abs 0.0 0.0 - 0.1 K/cumm ELVI Comment:Testing performed by : [address] [address] Lymphocyte abs 1.1 0.8 - 3.3 K/cumm ELVI Comment:Testing performed by : [address] [address] Monocyte abs 0.8 0.2 - 0.8 K/cumm [facility]VI Comment:Testing performed by : [address] [address] Eosinophil abs 0.1 0.0 - 0.5 K/cumm ELVI Comment:Testing performed by : [address] [address] Basophil abs 0.0 0.0 - 0.1 K/cumm [facility]VI Comment:Testing performed by : [address] [address] Neutrophil pct 70.6 % [facility] Comment: Interpretive Data Percent cell count reference ranges are not reported, since discordance with absolute values may lead to misinterpretation of CBC data. Current Interpretive Data was last revised on 2017. Testing performed by: [address] [address] Imm gran pct 0.4 % [facility]VI Comment: Interpretive Data Percent cell count reference ranges are not reported, since discordance with absolute values may lead to misinterpretation of CBC data. Current Interpretive Data was last revised on 2017. Testing performed by: [address] [address] Lymphocyte pct 15.5 % [facility] Comment: Interpretive Data Percent cell count reference ranges are not reported, since discordance with absolute values may lead to misinterpretation of CBC data. Current Interpretive Data was last revised on 2017. Testing performed by: [address] [address] Monocyte pct 11.1 % [facility] Comment: Interpretive Data Percent cell count reference ranges are not reported, since discordance with absolute values may lead to misinterpretation of CBC data. Current Interpretive Data was last revised on 2017. Testing performed by: [address] [address] Eosinophil pct 2.1 % [facility] Comment: Interpretive Data Percent cell count reference ranges are not reported, since discordance with absolute values may lead to misinterpretation of CBC data. Current Interpretive Data was last revised on 2017. Testing performed by: [address] [address] Basophil pct 0.3 % [facility] Comment: Interpretive Data Percent cell count reference ranges are not reported, since discordance with absolute values may lead to misinterpretation of CBC data. Current Interpretive Data was last revised on 2017. Testing performed by: [address] [address] Blood 05/09/2024 5:25 AM ELECTRONICS ENGINEER 05/09/2024 5:59 AM ELECTRONICS ENGINEER Amaury Lezama MD LAB BLOOD ORDERABL ES Final Result ELVI [address] [facility] Department [place] [address] * (ABNORMAL) CBC with auto differential (05/09/2024 5:25 AM ELECTRONICS ENGINEER) WBC 6.8 3.8 - 9.9 K/cumm Comment:Testing performed by : [address] [address] Hgb 9.5(L) 13.0 - 17.5 g/dL ELVI SNIDER Comment:Testing performed by : [address] [address] Hct 31.1(L) 38.9 - 50.3 % ELVI SNIDER Comment:Testing performed by : [address] [address] Plt 284 150 - 400 K/cumm [facility]VI Comment:Testing performed by : [address] [address] MPV 9.5 9.1 - 12.3 fL ELVI SNIDER Comment:Testing performed by : [address] [address] [address] RBC 3.76(L) 4.30 - 5.80 M/cumm ELVI SNIDER Comment:Testing performed by : [address] [address] MCV 82.7 81.3 - 96.4 fL ELVI SNIDER Comment:Testing performed by : [address] [address] MCH 25.3(L) 27.1 - 33.3 pg ELVI SNIDER Comment:Testing performed by : [address] [address] MCHC 30.5(L) 32.3 - 35.7 g/dL ELVI SNIDER Comment:Testing performed by : [facility], [address] [place] [address]., [address] RDW CV 18.7(H) 11.1 - 14.9 % ELVI SNIDER Comment:Testing performed by : [address] [address] RDW SD 55.7(H) 35.7 - 48.1 fL ELVI SNIDER Comment:Testing performed by : [address] [address] NRBC abs 0.00 0.00 - 0.01 K/cumm ELVI Comment:Testing performed by : [address] [address] Blood 05/09/2024 5:25 AM ELECTRONICS ENGINEER 05/09/2024 5:59 AM ELECTRONICS ENGINEER Amaury Lezama MD LAB BLOOD ORDERABL ES Final Result Performing Organization Address City/[facility] Co de Phone Number [address] [address] * (ABNORMAL) Phosphorus (05/09/2024 5:25 AM ELECTRONICS ENGINEER) Phosphorus, pl 4.7(H) 2.3 - 4.5 mg/dL Comment:Testing performed by : [address] [address] Blood 05/09/2024 5:25 AM ELECTRONICS ENGINEER 05/09/2024 5:59 AM ELECTRONICS ENGINEER Amaury Lezama MD LAB BLOOD ORDERABL ES Final Result Performing Organization Address City/[facility] Co de Phone Number [address] [place] [address] * Magnesium (05/09/2024 5:25 AM ELECTRONICS ENGINEER) Magnesium 2.1 1.4 - 2.5 mg/dL Comment:Testing performed by : [address] [address] Blood 05/09/2024 5:25 AM ELECTRONICS ENGINEER 05/09/2024 5:59 AM ELECTRONICS ENGINEER Amaury Lezama MD LAB BLOOD ORDERABL ES Final Result [facility] [address] [facility] Department [place] [address] * (ABNORMAL) Basic metabolic panel (05/09/2024 5:25 AM ELECTRONICS ENGINEER) Sodium 136 135 - 145 mmol/L Comment:Testing performed by : [address] [address] Potassium, pl 3.8 3.3 - 4.9 mmol/L ELVI Comment:Testing performed by : [address] [address] Chloride 98 97 - 110 mmol/L ELVI Comment:Testing performed by : [address] [address] CO2 27 22 - 32 mmol/L ELVI Comment:Testing performed by : [address] [address] Anion gap 11 2 - 15 mmol/L ELVI Comment:Testing performed by : [address] [address] BUN 44(H) 6 - 25 mg/dL ELVI Comment:Testing performed by : [address] [address] Creatinine 3.50(H) 0.80 - 1.30 mg/dL ELIV Comment:Testing performed by : [address] [address] Glucose 101 70 - 199 mg/dL ELVI [...] was last revised 2022. Testing performed by: [facility], [address] [place] [address]., [address] Calcium 9.0 8.5 - 10.3 mg/dL ELVI SNIDER Comment:Testing performed by : [facility], [address] [place] [address]., [address] Blood 05/09/2024 5:25 AM ELECTRONICS ENGINEER 05/09/2024 5:59 AM ELECTRONICS ENGINEER us Edward Sauer MD LAB BLOOD ORDERABLES Final R esult ELVI SNIDER [address] [facility] Department [place] [address] * (ABNORMAL) eGFR (05/08/2024 5:20 AM ELECTRONICS ENGINEER) eGFR 21(L) >=60 mL/min/1. 73 m2 Comment: [...] was last reviewed 2021. Testing performed by: [address] [address] Blood 05/08/2024 5:20 AM ELECTRONICS ENGINEER 05/08/2024 5:55 AM ELECTRONICS ENGINEER Edward Sauer MD LAB BLOOD ORDERABLES Final R esult [facility] [address] [facility] Department of Laboratories [place], [place] [id number] * (ABNORMAL) Differential, auto (05/08/2024 5:20 AM ELECTRONICS ENGINEER) Pathologist [facility] Neutrophil abs 5.5 1.5 - 6.5 K/cumm Comment:Testing performed by : [address] [address] Imm gran abs 0.0 0.0 - 0.1 K/cumm ELVI Comment:Testing performed by : [address] [address] Lymphocyte abs 0.7(L) 0.8 - 3.3 K/cumm ELVI Comment:Testing performed by : [address] [address] Monocyte abs 0.7 0.2 - 0.8 K/cumm ELVI Comment:Testing performed by : [address] [address] Eosinophil abs 0.1 0.0 - 0.5 K/cumm ELVI Comment:Testing performed by : [address] [address] Basophil abs 0.0 0.0 - 0.1 K/cumm ELVI Comment:Testing performed by : [address] [address] Neutrophil pct 77.7 % ELVI Comment: Interpretive Data Percent cell count reference ranges are not reported, since discordance with absolute values may lead to misinterpretation of CBC data. Current Interpretive Data was last revised on 2017. Testing performed by: [address] [address] Imm gran pct 0.4 % ELVI Comment: Interpretive Data Percent cell count reference ranges are not reported, since discordance with absolute values may lead to misinterpretation of CBC data. Current Interpretive Data was last revised on 2017. Testing performed by: [address] [address] Lymphocyte pct 10.4 % ELVI Comment: Interpretive Data Percent cell count reference ranges are not reported, since discordance with absolute values may lead to misinterpretation of CBC data. Current Interpretive Data was last revised on 2017. Testing performed by: [address] [address] Monocyte pct 10.1 % [facility] Comment: Interpretive Data Percent cell count reference ranges are not reported, since discordance with absolute values may lead to misinterpretation of CBC data. Current Interpretive Data was last revised on 2017. Testing performed by: [address] [address] Eosinophil pct 1.1 % [facility] Comment: Interpretive Data Percent cell count reference ranges are not reported, since discordance with absolute values may lead to misinterpretation of CBC data. Current Interpretive Data was last revised on 2017. Testing performed by: [address] [address] Basophil pct 0.3 % ELVI Comment: Interpretive Data Percent cell count reference ranges are not reported, since discordance with absolute values may lead to misinterpretation of CBC data. Current Interpretive Data was last revised on 2017. Testing performed by: [address] [address] Blood 05/08/2024 5:20 AM ELECTRONICS ENGINEER 05/08/2024 5:55 AM ELECTRONICS ENGINEER Amaury Lezama MD LAB BLOOD ORDERABL ES Final Result ELVI [address] Department [place] [address] * (ABNORMAL) CBC with auto differential (05/08/2024 5:20 AM ELECTRONICS ENGINEER) [facility] WBC 7.1 3.8 - 9.9 K/cumm Comment:Testing performed by : [address] [address] Hgb 9.0(L) 13.0 - 17.5 g/dL ELVI Comment:Testing performed by : [address] [address] Hct 29.1(L) 38.9 - 50.3 % ELVI Comment:Testing performed by : [address] [address] Plt 290 150 - 400 K/cumm ELVI Comment:Testing performed by : [address] [address] MPV 9.6 9.1 - 12.3 fL ELVI Comment:Testing performed by : [address], [address] RBC 3.56(L) 4.30 - 5.80 M/cumm ELVI Comment:Testing performed by : [address] [address] MCV 81.7 81.3 - 96.4 fL ELVI Comment:Testing performed by : [address] [address] MCH 25.3(L) 27.1 - 33.3 pg ELVI Comment:Testing performed by : [address] [address]155 MCHC 30.9(L) 32.3 - 35.7 g/dL ELVI Comment:Testing performed by : [address] [address] RDW CV 18.4(H) 11.1 - 14.9 % ELVI Comment:Testing performed by : [address], [address] RDW SD 53.3(H) 35.7 - 48.1 fL CERMEGAN SNIDER Comment:Testing performed by : [address] [address] NRBC abs 0.00 0.00 - 0.01 K/cumm ELVI SNIDER Comment:Testing performed by : [address] [address] Blood 05/08/2024 5:20 AM ELECTRONICS ENGINEER 05/08/2024 5:55 AM ELECTRONICS ENGINEER Amaury Lezama MD LAB BLOOD ORDERABL ES Final Result [address] [place] [address] * (ABNORMAL) Phosphorus (05/08/2024 5:20 AM ELECTRONICS ENGINEER) Phosphorus, pl 4.6(H) 2.3 - 4.5 mg/dL Comment:Testing performed by : [address] [address] Blood 05/08/2024 5:20 AM ELECTRONICS ENGINEER 05/08/2024 5:55 AM ELECTRONICS ENGINEER Amaury Lezama MD LAB BLOOD ORDERABL ES Final Result Performing Organization Address City/[facility] Co de Phone Number [address] [place] [address] * Magnesium (05/08/2024 5:20 AM ELECTRONICS ENGINEER) Magnesium 2.1 1.4 - 2.5 mg/dL Comment:Testing performed by : [address] [address] Blood 05/08/2024 5:20 AM ELECTRONICS ENGINEER 05/08/2024 5:55 AM ELECTRONICS ENGINEER Amaury Lezama MD LAB BLOOD ORDERABL ES Final Result Performing Organization Address City/[facility]/ZIP Co de Phone Number AMADOU[address] [place] [address] * (ABNORMAL) Basic metabolic panel (05/08/2024 5:20 AM ELECTRONICS ENGINEER) Sodium 133(L) 135 - 145 mmol/L Comment:Testing performed by : [address] [address] Potassium, pl 3.8 3.3 - 4.9 mmol/L ELVI Comment:Testing performed by : [address] [address] Chloride 96(L) 97 - 110 mmol/L [facility] Comment:Testing performed by : [address] [address] CO2 26 22 - 32 mmol/L [facility]:Testing performed by : [address] [address] Anion gap 11 2 - 15 mmol/L [facility] Comment:Testing performed by : [address] [address] BUN 43(H) 6 - 25 mg/dL [facility] Comment:Testing performed by : [address] [address] Creatinine 3.60(H) 0.80 - 1.30 mg/dL [facility] Comment:Testing performed by : [address] [address] Glucose 109 70 - 199 mg/dL [facility] Comment: Interpretive Data Fasting glucose >/= [...] was last revised 2022. Testing performed by: [address] [address] Calcium 8.8 8.5 - 10.3 mg/dL ELVI Comment:Testing performed by : [facility], [address] [place] [address]., [address] Blood 05/08/2024 5:20 AM ELECTRONICS ENGINEER 05/08/2024 5:55 AM ELECTRONICS ENGINEER us Edward Sauer MD LAB BLOOD ORDERABLES Final R esult ELVI [address] [facility] Department [place] [address] * (ABNORMAL) eGFR (05/07/2024 3:12 AM ELECTRONICS ENGINEER) eGFR 22(L) >=60 mL/min/1. 73 m2 Comment: [...] was last reviewed 2021. Testing performed by: [facility], [address] [place] [address]., [address] Blood 05/07/2024 3:12 AM ELECTRONICS ENGINEER 05/07/2024 4:37 AM ELECTRONICS ENGINEER us Edward Sauer MD LAB BLOOD ORDERABLES Final R esult ELVI [address] [facility] Department [place] [address] * Differential, auto (05/07/2024 3:12 AM ELECTRONICS ENGINEER) Neutrophil abs 5.0 1.5 - 6.5 K/cumm Comment:Testing performed by : [address] [address] Imm gran abs 0.0 0.0 - 0.1 K/cumm ELVI Comment:Testing performed by : [address] [address] Lymphocyte abs 1.0 0.8 - 3.3 K/cumm ELVI Comment:Testing performed by : [address] [address] Monocyte abs 0.7 0.2 - 0.8 K/cumm ELVI Comment:Testing performed by : [address] [address] Eosinophil abs 0.1 0.0 - 0.5 K/cumm ELVI Comment:Testing performed by : [address] [address] Basophil abs 0.0 0.0 - 0.1 K/cumm ELVI Comment:Testing performed by : [address] [address] Neutrophil pct 73.7 % ELVI Comment: Interpretive Data Percent cell count reference ranges are not reported, since discordance with absolute values may lead to misinterpretation of CBC data. Current Interpretive Data was last revised on 2017. Testing performed by: [address] [address]88 Imm gran pct 0.3 % ELVI Comment: Interpretive Data Percent cell count reference ranges are not reported, since discordance with absolute values may lead to misinterpretation of CBC data. Current Interpretive Data was last revised on 2017. Testing performed by: [address] [address] Lymphocyte pct 14.2 % [facility] Comment: Interpretive Data Percent cell count reference ranges are not reported, since discordance with absolute values may lead to misinterpretation of CBC data. Current Interpretive Data was last revised on 2017. Testing performed by: [address] [address] Monocyte pct 10.2 % [facility] Comment: Interpretive Data Percent cell count reference ranges are not reported, since discordance with absolute values may lead to misinterpretation of CBC data. Current Interpretive Data was last revised on 2017. Testing performed by: [address] [address] Eosinophil pct 1.3 % [facility] Comment: Interpretive Data Percent cell count reference ranges are not reported, since discordance with absolute values may lead to misinterpretation of CBC data. Current Interpretive Data was last revised on 2017. Testing performed by: [address] [address] Basophil pct 0.3 % [facility] Comment: Interpretive Data Percent cell count reference ranges are not reported, since discordance with absolute values may lead to misinterpretation of CBC data. Current Interpretive Data was last revised on 2017. Testing performed by: [address] [address] Blood 05/07/2024 3:12 AM ELECTRONICS ENGINEER 05/07/2024 4:40 AM ELECTRONICS ENGINEER Amaury Lezama MD LAB BLOOD ORDERABL ES Final Result [facility] [address] [facility] Department [place] [address] * (ABNORMAL) CBC with auto differential (05/07/2024 3:12 AM ELECTRONICS ENGINEER) WBC 6.8 3.8 - 9.9 K/cumm Comment:Testing performed by : [address] [address] Hgb 9.2(L) 13.0 - 17.5 g/dL ELVI Comment:Testing performed by : [address] [address] Hct 30.0(L) 38.9 - 50.3 % ELVI Comment:Testing performed by : [address] 48053 Plt 298 150 - 400 K/cumm ELVI Comment:Testing performed by : [address] [address]149 MPV 9.4 9.1 - 12.3 fL ELVI Comment:Testing performed by : [address] [address] RBC 3.65(L) 4.30 - 5.80 M/cumm ELVI Comment:Testing performed by : [address] 94473 MCV 82.2 81.3 - 96.4 fL ELVI Comment:Testing performed by : [address] [address]1531 MCH 25.2(L) 27.1 - 33.3 pg ELVI Comment:Testing performed by : [address] [address]24 MCHC 30.7(L) 32.3 - 35.7 g/dL ELVI Comment:Testing performed by : [address] 11387 RDW CV 18.1(H) 11.1 - 14.9 % ELVI Comment:Testing performed by : [address] [address] RDW SD 53.0(H) 35.7 - 48.1 fL ELVI Comment:Testing performed by : [address] [address]6459 NRBC abs 0.00 0.00 - 0.01 K/cumm ELVI Comment:Testing performed by : [address] [address] Blood 05/07/2024 3:12 AM ELECTRONICS ENGINEER 05/07/2024 4:40 AM ELECTRONICS ENGINEER Amaury Lezama MD LAB BLOOD ORDERABL ES Final Result Performing Organization Address City/[facility] Co de Phone Number AMADOU[address] [place] [address] * Phosphorus (05/07/2024 3:12 AM ELECTRONICS ENGINEER) Pathologist [facility] Phosphorus, pl 4.2 2.3 - 4.5 mg/dL Comment:Testing performed by : [address] [address] Blood 05/07/2024 3:12 AM ELECTRONICS ENGINEER 05/07/2024 4:37 AM ELECTRONICS ENGINEER Amaury Lezama MD LAB BLOOD ORDERABL ES Final Result Performing Organization Address [facility] de Phone Number [address] [place] [address] * Magnesium (05/07/2024 3:12 AM ELECTRONICS ENGINEER) Pathologist [facility] Magnesium 1.9 1.4 - 2.5 mg/dL Comment:Testing performed by : [address] [address] Blood 05/07/2024 3:12 AM ELECTRONICS ENGINEER 05/07/2024 4:37 AM ELECTRONICS ENGINEER Amaury Lezama MD LAB BLOOD ORDERABL ES Final Result Performing Organization Address [facility] Co de Phone Number [address] [place] [address] * (ABNORMAL) Basic metabolic panel (05/07/2024 3:12 AM ELECTRONICS ENGINEER) Pathologist [facility] Sodium 133(L) 135 - 145 mmol/L Comment:Testing performed by : [address] [address] Potassium, pl 3.5 3.3 - 4.9 mmol/L ELVI Comment:Testing performed by : [address] [address] Chloride 95(L) 97 - 110 mmol/L ELVI Comment:Testing performed by : [address] [address] CO2 28 22 - 32 mmol/L ELVI Comment:Testing performed by : [address] [address] Anion gap 10 2 - 15 mmol/L ELVI Comment:Testing performed by : [address] [address]96 BUN 40(H) 6 - 25 mg/dL ELVI Comment:Testing performed by : [address] [address] Creatinine 3.50(H) 0.80 - 1.30 mg/dL ELVI Comment:Testing performed by : [address] 18292 Glucose 108 70 - 199 mg/dL ELVI [...] was last revised 2022. Testing performed by: [address] [address] Calcium 9.0 8.5 - 10.3 mg/dL ELVI Comment:Testing performed by : [address] [address] Blood 05/07/2024 3:12 AM ELECTRONICS ENGINEER 05/07/2024 4:37 AM ELECTRONICS ENGINEER us Edward Sauer MD LAB BLOOD ORDERABLES Final R esult [facility] Department [place] [address] * (ABNORMAL) eGFR (05/06/2024 3:28 AM ELECTRONICS ENGINEER) [facility] eGFR 23(L) >=60 mL/min/1. 73 m2 Comment: [...] was last reviewed 2021. Testing performed by: [facility], [address] [place] [address]., [address] Blood 05/06/2024 3:28 AM ELECTRONICS ENGINEER 05/06/2024 5:14 AM ELECTRONICS ENGINEER us Edward Sauer MD LAB BLOOD ORDERABLES Final R esult ELVI [address] [facility] Department [place] [address] * Differential, auto (05/06/2024 3:28 AM ELECTRONICS ENGINEER) Neutrophil abs 5.7 1.5 - 6.5 K/cumm Comment:Testing performed by : [address], [place]., [address] Imm gran abs 0.0 0.0 - 0.1 K/cumm [facility] Comment:Testing performed by : [address], [place]., [address] Lymphocyte abs 0.8 0.8 - 3.3 K/cumm [facility] Comment:Testing performed by : [address], [place]., [address] Monocyte abs 0.7 0.2 - 0.8 K/cumm [facility] Comment:Testing performed by : [address], [place]., [address] Eosinophil abs 0.1 0.0 - 0.5 K/cumm [facility] Comment:Testing performed by : [address], [place]., [address] Basophil abs 0.0 0.0 - 0.1 K/cumm [facility] Comment:Testing performed by : [address] [address] Neutrophil pct 77.4 % [facility] Comment: Interpretive Data Percent cell count reference ranges are not reported, since discordance with absolute values may lead to misinterpretation of CBC data. Current Interpretive Data was last revised on 2017. Testing performed by: [address] [address] Imm gran pct 0.4 % [facility] Comment: Interpretive Data Percent cell count reference ranges are not reported, since discordance with absolute values may lead to misinterpretation of CBC data. Current Interpretive Data was last revised on 2017. Testing performed by: [address] [address] Lymphocyte pct 11.4 % [facility] Comment: Interpretive Data Percent cell count reference ranges are not reported, since discordance with absolute values may lead to misinterpretation of CBC data. Current Interpretive Data was last revised on 2017. Testing performed by: [address] [address] Monocyte pct 8.9 % [facility] Comment: Interpretive Data Percent cell count reference ranges are not reported, since discordance with absolute values may lead to misinterpretation of CBC data. Current Interpretive Data was last revised on 2017. Testing performed by: [address] [address] Eosinophil pct 1.4 % ELVI SNIDER Comment: Interpretive Data Percent cell count reference ranges are not reported, since discordance with absolute values may lead to misinterpretation of CBC data. Current Interpretive Data was last revised on 2017. Testing performed by: [address] [address] Basophil pct 0.5 % ELVI SNIDER Comment: Interpretive Data Percent cell count reference ranges are not reported, since discordance with absolute values may lead to misinterpretation of CBC data. Current Interpretive Data was last revised on 2017. Testing performed by: [address] [address] Blood 05/06/2024 3:28 AM ELECTRONICS ENGINEER 05/06/2024 5:14 AM ELECTRONICS ENGINEER us Amaury Lezama MD LAB BLOOD ORDERABL ES Final Result [facility] [address] [facility] Department of Laboratories [place], [place] [id number] * (ABNORMAL) CBC with auto differential (05/06/2024 3:28 AM ELECTRONICS ENGINEER) Pathologist [facility] WBC 7.4 3.8 - 9.9 K/cumm Comment:Testing performed by : [address] [address] Hgb 9.2(L) 13.0 - 17.5 g/dL [facility] SNIDER Comment:Testing performed by : [address] [address] Hct 30.1(L) 38.9 - 50.3 % [facility]VI SNIDER Comment:Testing performed by : [address] [address]69 Plt 317 150 - 400 K/cumm [facility]VI SNIDER Comment:Testing performed by : [address] [place]., [address] MPV 9.7 9.1 - 12.3 fL [facility] SNIDER Comment:Testing performed by : [address] [address] RBC 3.69(L) 4.30 - 5.80 M/cumm [facility] SNIDER Comment:Testing performed by : [address] [address] MCV 81.6 81.3 - 96.4 fL [facility]VI Comment:Testing performed by : [address] [address] MCH 24.9(L) 27.1 - 33.3 pg [facility]VI Comment:Testing performed by : [address] [address]1586 MCHC 30.6(L) 32.3 - 35.7 g/dL [facility]VI Comment:Testing performed by : [address] [address] RDW CV 17.6(H) 11.1 - 14.9 % ELVI Comment:Testing performed by : [address] [address] RDW SD 49.9(H) 35.7 - 48.1 fL [facility] Comment:Testing performed by : [address] [address]51 NRBC abs 0.00 0.00 - 0.01 K/cumm [facility]VI Comment:Testing performed by : [address] [address] Blood 05/06/2024 3:28 AM ELECTRONICS ENGINEER 05/06/2024 5:14 AM ELECTRONICS ENGINEER us Amaury Lezama MD LAB BLOOD ORDERABL ES Final Result [facility] [address] [facility] Department of Laboratories [place], [place] [id number] * (ABNORMAL) Vitamin D 25 hydroxy (05/06/2024 3:28 AM ELECTRONICS ENGINEER) Pathologist [facility] Vitamin D 25-OH 9.0(L) 30.0 - 80.0 ng/mL Blood 05/06/2024 3:28 AM ELECTRONICS ENGINEER 05/06/2024 6:32 AM ELECTRONICS ENGINEER Marcus House MD LAB BLOOD ORDERABLES Final Re sult Performing Organization Address [facility] Co de Phone Number [address] [place] [address] * Phosphorus (05/06/2024 3:28 AM ELECTRONICS ENGINEER) [facility] Phosphorus, pl 3.4 2.3 - 4.5 mg/dL Comment:Testing performed by : [address] [address] Blood 05/06/2024 3:28 AM ELECTRONICS ENGINEER 05/06/2024 5:14 AM ELECTRONICS ENGINEER Amaury Lezama MD LAB BLOOD ORDERABL ES Final Result Performing Organization Address [facility] de Phone Number [address] [address] * (ABNORMAL) PTH (05/06/2024 3:28 AM ELECTRONICS ENGINEER) [facility] PTH 144(H) 15 - 65 pg/mL Comment:Testing performed by : [address] [address] Blood 05/06/2024 3:28 AM ELECTRONICS ENGINEER 05/06/2024 5:46 AM ELECTRONICS ENGINEER Marcus House MD LAB BLOOD ORDERABLES Final Re sult Performing Organization Address [facility] Co de Phone Number [address] [address] * Magnesium (05/06/2024 3:28 AM ELECTRONICS ENGINEER) [facility] Magnesium 1.8 1.4 - 2.5 mg/dL Comment:Testing performed by : [address] [address] Blood 05/06/2024 3:28 AM ELECTRONICS ENGINEER 05/06/2024 5:14 AM ELECTRONICS ENGINEER Amaury Lezama MD LAB BLOOD ORDERABL ES Final Result [facility] [address] [facility] Department [place] [address] * (ABNORMAL) Basic metabolic panel (05/06/2024 3:28 AM ELECTRONICS ENGINEER) Sodium 133(L) 135 - 145 mmol/L Comment:Testing performed by : [address] [address] Potassium, pl 3.6 3.3 - 4.9 mmol/L ELVI Comment:Testing performed by : [address] [address] Chloride 96(L) 97 - 110 mmol/L ELVI Comment:Testing performed by : [address] [address] CO2 27 22 - 32 mmol/L ELVI Comment:Testing performed by : [address] [address] Anion gap 10 2 - 15 mmol/L ELVI Comment:Testing performed by : [address] [address] BUN 35(H) 6 - 25 mg/dL ELVI Comment:Testing performed by : [address] [address] Creatinine 3.30(H) 0.80 - 1.30 mg/dL ELVI Comment:Testing performed by : [address] [address] Glucose 112 70 - 199 mg/dL ELVI [...] was last revised 2022. Testing performed by: [facility], [address] [place] [address]., [address] Calcium 8.9 8.5 - 10.3 mg/dL ELVI SNIDER Comment:Testing performed by : [facility], [address] [place] [address]., [address] Blood 05/06/2024 3:28 AM ELECTRONICS ENGINEER 05/06/2024 5:14 AM ELECTRONICS ENGINEER us Edward Sauer MD LAB BLOOD ORDERABLES Final R esult ELVI [address] [facility] Department [place] [address] * TRANSTHORACIC ECHO (TTE) COMPLETE W DOPPLER/CF W CONTRAST (05/05/2024 10:40 AM ELECTRONICS ENGINEER) Anatomical Region Laterality Modality Ultrasound 05/05/2024 9:59 AM ELECTRONICS ENGINEER Narrative 05/06/2024 2:57 PM ELECTRONICS ENGINEER ? Adult Echocardiogram + ----- + :Name: SHARRON HEADLEY, IIIStudy Date: 05/05/2024 ?Status: MHE ?: : ? Patient Location: MHE ICU^[id number]^MHHeight: 72 in ?: : ? Weight: 208 lbBP: 137/59 mmHg: :: 1985 ?Gender: Male ?BSA: 2.2 m2 ?: :Reason For Study: severe Chf ?: :Ordering Physician: ? : :DARBARI, GERALD ?: : ?: :Performed By: Razia ?: :JONATHAN Baeza ?: + ----- + Procedure A two-dimensional transthoracic echocardiogram with color flow and Doppler was performed. A contrast injection of Definity was performed to improve assessment of LV function. Definity lot # is ' [id number] '. Left Ventricle LV seems mild to [...] ?LV V1 max: ? Ao mean P.0 gaQy423.0 cm/sec ? Ao V2 VTI: 23.5 cm [...] Date: 05/05/2024Status: SOURAV : : Patient Location: [facility]^[id number]^MHHeight: 72 in : : : 208 lbBP: 137/59 mmHg: :: 1985 Gender: MaleBSA: 2.2 m2 : :Reason For Study: severe Chf: :Ordering Physician:: :GERALD LUCAS: :: :Performed By: Razia: :JONATHAN Baeza: + ----- + Procedure A two-dimensional transthoracic echocardiogram with color flow and Dopplerwas performed. A contrast injection of Definity was performed to improve assessment of LV function. Definity lot # is ' [id number] '. Left Ventricle LV seems mild to [...] cm/sec LV V1 max: Ao mean P.0 ngGm016.0 cm/sec Ao V2 VTI: 23.5 cm LV [...] Result * (ABNORMAL) eGFR (05/05/2024 1:45 AM ELECTRONICS ENGINEER) eGFR 25(L) >=60 mL/min/1. 73 m2 Comment: [...] was last reviewed 2021. Testing performed by: [facility], [address] [place] [address], [place]., [address] Blood 05/05/2024 1:45 AM ELECTRONICS ENGINEER 05/05/2024 2:48 AM ELECTRONICS ENGINEER us Edward Sauer MD LAB BLOOD ORDERABLES Final R esult [facility] [address] [facility] Department [place] [address] * Differential, auto (05/05/2024 1:45 AM ELECTRONICS ENGINEER) Neutrophil abs 5.2 1.5 - 6.5 K/cumm Comment:Testing performed by : [address] [address] Imm gran abs 0.0 0.0 - 0.1 K/cumm ELVI Comment:Testing performed by : [address] [address] Lymphocyte abs 1.4 0.8 - 3.3 K/cumm ELVI Comment:Testing performed by : [address] [address] Monocyte abs 0.7 0.2 - 0.8 K/cumm ELVI Comment:Testing performed by : [address] [address] Eosinophil abs 0.2 0.0 - 0.5 K/cumm ELVI Comment:Testing performed by : [address] [address] Basophil abs 0.0 0.0 - 0.1 K/cumm ELVI Comment:Testing performed by : [address] [address] Neutrophil pct 68.6 % ELVI Comment: Interpretive Data Percent cell count reference ranges are not reported, since discordance with absolute values may lead to misinterpretation of CBC data. Current Interpretive Data was last revised on 2017. Testing performed by: [address] [address] Imm gran pct 0.5 % ELVI Comment: Interpretive Data Percent cell count reference ranges are not reported, since discordance with absolute values may lead to misinterpretation of CBC data. Current Interpretive Data was last revised on 2017. Testing performed by: [address] [address] Lymphocyte pct 18.6 % ELVI Comment: Interpretive Data Percent cell count reference ranges are not reported, since discordance with absolute values may lead to misinterpretation of CBC data. Current Interpretive Data was last revised on 2017. Testing performed by: [address] [address] Monocyte pct 8.9 % ELVI Comment: Interpretive Data Percent cell count reference ranges are not reported, since discordance with absolute values may lead to misinterpretation of CBC data. Current Interpretive Data was last revised on 2017. Testing performed by: [address] [address] Eosinophil pct 2.9 % ELVI Comment: Interpretive Data Percent cell count reference ranges are not reported, since discordance with absolute values may lead to misinterpretation of CBC data. Current Interpretive Data was last revised on 2017. Testing performed by: [address] [address] Basophil pct 0.5 % ELVI Comment: Interpretive Data Percent cell count reference ranges are not reported, since discordance with absolute values may lead to misinterpretation of CBC data. Current Interpretive Data was last revised on 2017. Testing performed by: [address] [address] Blood 05/05/2024 1:45 AM ELECTRONICS ENGINEER 05/05/2024 2:48 AM ELECTRONICS ENGINEER Amaury Lezama MD LAB BLOOD ORDERABL ES Final Result [facility] [address] [facility] Department [place] [address] * (ABNORMAL) CBC with auto differential (05/05/2024 1:45 AM ELECTRONICS ENGINEER) WBC 7.6 3.8 - 9.9 K/cumm Comment:Testing performed by : [address] [address] Hgb 10.2(L) 13.0 - 17.5 g/dL ELVI SNIDER Comment:Testing performed by : [address] [address] Hct 33.5(L) 38.9 - 50.3 % ELVI Comment:Testing performed by : [address] [address] Plt 319 150 - 400 K/cumm ELVI Comment:Testing performed by : [address] [address] MPV 9.9 9.1 - 12.3 fL ELVI Comment:Testing performed by : [address] [address] RBC 4.07(L) 4.30 - 5.80 M/cumm ELVI Comment:Testing performed by : [address] [address] MCV 82.3 81.3 - 96.4 fL ELVI Comment:Testing performed by : [address] [address] MCH 25.1(L) 27.1 - 33.3 pg ELVI Comment:Testing performed by : [address] [address] MCHC 30.4(L) 32.3 - 35.7 g/dL ELVI Comment:Testing performed by : [address] [address] RDW CV 17.0(H) 11.1 - 14.9 % ELVI Comment:Testing performed by : [address] [address] RDW SD 50.0(H) 35.7 - 48.1 fL ELVI Comment:Testing performed by : [address] [address] NRBC abs 0.00 0.00 - 0.01 K/cumm ELVI Comment:Testing performed by : [address] [address] Blood 05/05/2024 1:45 AM ELECTRONICS ENGINEER 05/05/2024 2:48 AM ELECTRONICS ENGINEER us Amaury Lezama MD LAB BLOOD ORDERABL ES Final Result ELVI [address] [address] * Phosphorus (05/05/2024 1:45 AM ELECTRONICS ENGINEER) [facility] Phosphorus, pl 3.1 2.3 - 4.5 mg/dL Comment:Testing performed by : [address] [address] Blood 05/05/2024 1:45 AM ELECTRONICS ENGINEER 05/05/2024 2:48 AM ELECTRONICS ENGINEER Amaury Lezama MD LAB BLOOD ORDERABL ES Final Result [address] [address] * Magnesium (05/05/2024 1:45 AM ELECTRONICS ENGINEER) [facility] Magnesium 1.8 1.4 - 2.5 mg/dL Comment:Testing performed by : [address] [address] Blood 05/05/2024 1:45 AM ELECTRONICS ENGINEER 05/05/2024 2:48 AM ELECTRONICS ENGINEER Amaury Lezama MD LAB BLOOD ORDERABL ES Final Result Performing Organization Address City/[facility]/ZIP Co de Phone Number [address] [address] * (ABNORMAL) Basic metabolic panel (05/05/2024 1:45 AM ELECTRONICS ENGINEER) [facility] Sodium 134(L) 135 - 145 mmol/L Comment:Testing performed by : [address] [address] Potassium, pl 3.5 3.3 - 4.9 mmol/L ELVI Comment:Testing performed by : [address] [address] Chloride 95(L) 97 - 110 mmol/L ELVI SNIDER Comment:Testing performed by : [address] [address] CO2 28 22 - 32 mmol/L ELVI Comment:Testing performed by : [address] [address] Anion gap 11 2 - 15 mmol/L ELVI Comment:Testing performed by : [address] [address] BUN 33(H) 6 - 25 mg/dL ELVI Comment:Testing performed by : [address] [address] Creatinine 3.10(H) 0.80 - 1.30 mg/dL ELVI Comment:Testing performed by : [address] [address] Glucose 108 70 - 199 mg/dL ELVI [...] was last revised 2022. Testing performed by: [address] [address] Calcium 8.5 8.5 - 10.3 mg/dL ELVI Comment:Testing performed by : [address] [address] Blood 05/05/2024 1:45 AM ELECTRONICS ENGINEER 05/05/2024 2:48 AM ELECTRONICS ENGINEER us Edward Sauer MD LAB BLOOD ORDERABLES Final R esult ELVI SNIDER [address] [facility] Department [place] [address] * Volume and period, urine, 24 hour (05/04/2024 9:41 AM ELECTRONICS ENGINEER) Volume, ur 7,725 mL Comment:Testing performed by : [facility], [address] [place] [address]., [address] Period, Urine Collection 1,440 min ELVI Comment:Testing performed by : [facility], [address] [place] [address]., [address] Urine 05/04/2024 9:41 AM ELECTRONICS ENGINEER 05/04/2024 9:41 AM ELECTRONICS ENGINEER Amaury Lezama MD LAB URINE ORDERABL ES Final Result [facility] [address] [facility] Department [place] [address] * (ABNORMAL) Metanephrines, urine, 24 hour (05/04/2024 8:45 AM ELECTRONICS ENGINEER) Pathologist [facility] Metanephrines, 24 hr ur 433(H) mcg/24H [place] [facility] Comment: REFERENCE VALUE 44-261 (Normotensive) <400 (Hypertensive) Testing performed by: [facility], [address] [place] [address]., [address] Metanephrines Comment Not Reported ELVI Comment:Testing performed by : [facility], [address] [place] [address]., [address] Normetanephrine, 24 hour ur 1190(H) mcg/24H ELVI Comment: REFERENCE VALUE 119-451 (Normotensive) <900 (Hypertensive) Testing performed by: [facility], [address] [place] [address]., [address] Metanephrine, Total, 24 Hour Urine 1623(H) mcg/24H ELVI Comment: REFERENCE VALUE 211-646 (Normotensive) <1300 (Hypertensive) Testing performed by: [facility], [address] [place] [address]., [address] Urine 05/04/2024 8:45 AM ELECTRONICS ENGINEER 05/04/2024 9:41 AM ELECTRONICS ENGINEER Amaury Lezama MD LAB URINE ORDERABL ES Final Result [facility] [address] [facility] Department [place] [address] [place] [facility] * (ABNORMAL) eGFR (05/04/2024 3:45 AM ELECTRONICS ENGINEER) eGFR 25(L) >=60 mL/min/1. 73 m2 Comment: [...] was last reviewed 2021. Testing performed by: [facility], [address] [place] [address]., [address] Blood 05/04/2024 3:45 AM ELECTRONICS ENGINEER 05/04/2024 4:46 AM ELECTRONICS ENGINEER Amaury Lezama MD LAB BLOOD ORDERABL ES Final Result [facility] [address] [facility] Department [place] [address] * Differential, auto (05/04/2024 3:45 AM ELECTRONICS ENGINEER) Neutrophil abs 5.0 1.5 - 6.5 K/cumm Comment:Testing performed by : [address] [address] Imm gran abs 0.0 0.0 - 0.1 K/cumm ELVI Comment:Testing performed by : [address] [address] Lymphocyte abs 1.5 0.8 - 3.3 K/cumm ELVI Comment:Testing performed by : [address] [address] Monocyte abs 0.6 0.2 - 0.8 K/cumm ELVI Comment:Testing performed by : [address] [address] Eosinophil abs 0.3 0.0 - 0.5 K/cumm ELVI Comment:Testing performed by : [address] [address] Basophil abs 0.0 0.0 - 0.1 K/cumm ELVI Comment:Testing performed by : [address] [address] Neutrophil pct 67.0 % ELVI Comment: Interpretive Data Percent cell count reference ranges are not reported, since discordance with absolute values may lead to misinterpretation of CBC data. Current Interpretive Data was last revised on 2017. Testing performed by: [address] [address] Imm gran pct 0.4 % ELVI Comment: Interpretive Data Percent cell count reference ranges are not reported, since discordance with absolute values may lead to misinterpretation of CBC data. Current Interpretive Data was last revised on 2017. Testing performed by: [address] [address] Lymphocyte pct 20.6 % [facility] Comment: Interpretive Data Percent cell count reference ranges are not reported, since discordance with absolute values may lead to misinterpretation of CBC data. Current Interpretive Data was last revised on 2017. Testing performed by: [address] [address] Monocyte pct 8.0 % [facility] Comment: Interpretive Data Percent cell count reference ranges are not reported, since discordance with absolute values may lead to misinterpretation of CBC data. Current Interpretive Data was last revised on 2017. Testing performed by: [address] [address] Eosinophil pct 3.5 % [facility] Comment: Interpretive Data Percent cell count reference ranges are not reported, since discordance with absolute values may lead to misinterpretation of CBC data. Current Interpretive Data was last revised on 2017. Testing performed by: [address] [address] Basophil pct 0.5 % [facility] Comment: Interpretive Data Percent cell count reference ranges are not reported, since discordance with absolute values may lead to misinterpretation of CBC data. Current Interpretive Data was last revised on 2017. Testing performed by: [address] [address] Blood 05/04/2024 3:45 AM ELECTRONICS ENGINEER 05/04/2024 4:57 AM ELECTRONICS ENGINEER us Amaury Lezama MD LAB BLOOD ORDERABL ES Final Result [facility] [address] [facility] Department [place] [address] * (ABNORMAL) CBC with auto differential (05/04/2024 3:45 AM ELECTRONICS ENGINEER) WBC 7.4 3.8 - 9.9 K/cumm Comment:Testing performed by : [address] [address] Hgb 9.5(L) 13.0 - 17.5 g/dL ELVI Comment:Testing performed by : [address] [address] Hct 30.6(L) 38.9 - 50.3 % ELVI Comment:Testing performed by : [address] [address] Plt 334 150 - 400 K/cumm ELVI Comment:Testing performed by : [address] [address] MPV 10.1 9.1 - 12.3 fL ELVI Comment:Testing performed by : [address] [address] RBC 3.79(L) 4.30 - 5.80 M/cumm ELVI Comment:Testing performed by : [address] [address] MCV 80.7(L) 81.3 - 96.4 fL CERME[facility] Comment:Testing performed by : [address] [address] MCH 25.1(L) 27.1 - 33.3 pg ELVI Comment:Testing performed by : [address] [address] MCHC 31.0(L) 32.3 - 35.7 g/dL ELVI Comment:Testing performed by : [address] [address] RDW CV 16.7(H) 11.1 - 14.9 % ELVI Comment:Testing performed by : [address] [address] RDW SD 48.8(H) 35.7 - 48.1 fL ELVI Comment:Testing performed by : [address] [address] NRBC abs 0.00 0.00 - 0.01 K/cumm ELVI Comment:Testing performed by : [address] [address] Blood 05/04/2024 3:45 AM ELECTRONICS ENGINEER 05/04/2024 4:57 AM ELECTRONICS ENGINEER Amaury Lezama MD LAB BLOOD ORDERABL ES Final Result Performing Organization Address City/[facility] Co de Phone Number [address] [address] * Phosphorus (05/04/2024 3:45 AM ELECTRONICS ENGINEER) Phosphorus, pl 3.1 2.3 - 4.5 mg/dL Comment:Testing performed by : [address] [address] Blood 05/04/2024 3:45 AM ELECTRONICS ENGINEER 05/04/2024 4:46 AM ELECTRONICS ENGINEER Amaury Leazma MD LAB BLOOD ORDERABL ES Final Result Performing Organization Address [facility] Co de Phone Number [address] [address] * Magnesium (05/04/2024 3:45 AM ELECTRONICS ENGINEER) [facility] Magnesium 1.9 1.4 - 2.5 mg/dL Comment:Testing performed by : [address] [address] Blood 05/04/2024 3:45 AM ELECTRONICS ENGINEER 05/04/2024 4:46 AM ELECTRONICS ENGINEER Amaury Lezama MD LAB BLOOD ORDERABL ES Final Result Performing Organization Address [facility] Co de Phone Number [address] [address] * (ABNORMAL) Basic metabolic panel (05/04/2024 3:45 AM ELECTRONICS ENGINEER) Pathologist [facility] Sodium 136 135 - 145 mmol/L Comment:Testing performed by : [address] [address] Potassium, pl 3.6 3.3 - 4.9 mmol/L ELVI Comment:Testing performed by : [address] [address] Chloride 97 97 - 110 mmol/L ELVI Comment:Testing performed by : [address], [place]., [address] CO2 28 22 - 32 mmol/L ELVI Comment:Testing performed by : [address] [address] Anion gap 11 2 - 15 mmol/L ELVI Comment:Testing performed by : [address] [address] BUN 33(H) 6 - 25 mg/dL [facility] Comment:Testing performed by : [address] [address] Creatinine 3.10(H) 0.80 - 1.30 mg/dL ELVI Comment:Testing performed by : [address] [address] Glucose 93 70 - 199 mg/dL [facility] Comment: Interpretive Data Fasting glucose >/= [...] was last revised 2022. Testing performed by: [address] [address] Calcium 8.5 8.5 - 10.3 mg/dL ELVI Comment:Testing performed by : [address] [address] Blood 05/04/2024 3:45 AM ELECTRONICS ENGINEER 05/04/2024 4:46 AM ELECTRONICS ENGINEER us Amaury Lezama MD LAB BLOOD ORDERABL ES Final Result [facility] [address] [facility] Department [place] [address] * US Renal Doppler (05/03/2024 9:40 AM ELECTRONICS ENGINEER) Anatomical Region Laterality Modality Vascular N/A Ultrasound 05/03/2024 Narrative 05/07/2024 6:55 AM ELECTRONICS ENGINEER [employer] Job ID: [id number] [employer] Document ID: [id number] Dictated date/time: [id number] BILATERAL RENAL DOPPLER REASON FOR EXAM FMD. [...] artery stenosis bilaterally. Job ID/Internal Job ID: [id number] Amaury Lezama MD IMG US PROCEDURES Final Result * US Kidney Complete (aka RENAL) (05/03/2024 7:27 AM ELECTRONICS ENGINEER) Anatomical Region Laterality Modality Kidney N/A Ultrasound 05/03/2024 8:00 AM ELECTRONICS ENGINEER Narrative 05/03/2024 8:01 AM ELECTRONICS ENGINEER EXAM DESCRIPTION: US KIDNEY COMPLETE REASON FOR [...] AM T: ??05/03/2024 8:01 AM Report ID: [id number] Reading Location: ??[id number] Procedure Note Jaskaran Tobin Jr., MD - [...] Electronically signed by Jaskaran Tobin M.D. CH: Report ID: [id number] Reading Location: [id number] Amaury Lezama MD IMG US PROCEDURES Final Result * (ABNORMAL) eGFR (05/03/2024 5:28 AM ELECTRONICS ENGINEER) eGFR 24(L) >=60 mL/min/1. 73 m2 Comment: [...] was last reviewed 2021. Testing performed by: [address] [address] Blood 05/03/2024 5:28 AM ELECTRONICS ENGINEER 05/03/2024 5:35 AM ELECTRONICS ENGINEER us Timmy Hernandez MD LAB BLOOD ORDERABLES Final Result [facility] [address] [facility] Department [place] [address] * Differential, auto (05/03/2024 5:28 AM ELECTRONICS ENGINEER) Neutrophil abs 4.5 1.5 - 6.5 K/cumm Comment:Testing performed by : [address] [address] Imm gran abs 0.0 0.0 - 0.1 K/cumm [facility]VI SNIDER Comment:Testing performed by : [address] [address] Lymphocyte abs 1.4 0.8 - 3.3 K/cumm ELVI Comment:Testing performed by : [address] [address] Monocyte abs 0.4 0.2 - 0.8 K/cumm ELVI Comment:Testing performed by : [address] [address] Eosinophil abs 0.2 0.0 - 0.5 K/cumm ELVI Comment:Testing performed by : [address], [place]., [address] Basophil abs 0.0 0.0 - 0.1 K/cumm ELVI Comment:Testing performed by : [address] [address] Neutrophil pct 68.6 % ELVI Comment: Interpretive Data Percent cell count reference ranges are not reported, since discordance with absolute values may lead to misinterpretation of CBC data. Current Interpretive Data was last revised on 2017. Testing performed by: [address] [address] Imm gran pct 0.3 % ELVI Comment: Interpretive Data Percent cell count reference ranges are not reported, since discordance with absolute values may lead to misinterpretation of CBC data. Current Interpretive Data was last revised on 2017. Testing performed by: [address] [address] Lymphocyte pct 21.3 % ELVI Comment: Interpretive Data Percent cell count reference ranges are not reported, since discordance with absolute values may lead to misinterpretation of CBC data. Current Interpretive Data was last revised on 2017. Testing performed by: [address] [address] Monocyte pct 6.2 % ELVI Comment: Interpretive Data Percent cell count reference ranges are not reported, since discordance with absolute values may lead to misinterpretation of CBC data. Current Interpretive Data was last revised on 2017. Testing performed by: [address] [address] Eosinophil pct 3.0 % [facility]VI SNIDER Comment: Interpretive Data Percent cell count reference ranges are not reported, since discordance with absolute values may lead to misinterpretation of CBC data. Current Interpretive Data was last revised on 2017. Testing performed by: [address] [address] Basophil pct 0.6 % [facility] SNIDER Comment: Interpretive Data Percent cell count reference ranges are not reported, since discordance with absolute values may lead to misinterpretation of CBC data. Current Interpretive Data was last revised on 2017. Testing performed by: [address] [address] Blood 05/03/2024 5:28 AM ELECTRONICS ENGINEER 05/03/2024 5:35 AM ELECTRONICS ENGINEER us Timmy Hernandez MD LAB BLOOD ORDERABLES Final Result [facility] [address] [facility] Department [place] [address] * (ABNORMAL) CBC with auto differential (05/03/2024 5:28 AM ELECTRONICS ENGINEER) WBC 6.6 3.8 - 9.9 K/cumm Comment:Testing performed by : [address] [address] Hgb 9.1(L) 13.0 - 17.5 g/dL [facility]VI SNIDER Comment:Testing performed by : [address] [address] Hct 29.7(L) 38.9 - 50.3 % [facility] SNIDER Comment:Testing performed by : [address] [address] Plt 304 150 - 400 K/cumm [facility] SNIDER Comment:Testing performed by : [address] [address] MPV 9.1 9.1 - 12.3 fL [facility] SNIDER Comment:Testing performed by : [address] [address] RBC 3.70(L) 4.30 - 5.80 M/cumm ELVI Comment:Testing performed by : [facility], [address] [place] [address]., [address] MCV 80.3(L) 81.3 - 96.4 fL ELVI Comment:Testing performed by : [address] [address] MCH 24.6(L) 27.1 - 33.3 pg ELVI Comment:Testing performed by : [address] [address] MCHC 30.6(L) 32.3 - 35.7 g/dL ELVI Comment:Testing performed by : [address] [address] RDW CV 16.6(H) 11.1 - 14.9 % ELVI Comment:Testing performed by : [address] [address] RDW SD 48.3(H) 35.7 - 48.1 fL [facility]VI Comment:Testing performed by : [address] [address] NRBC abs 0.00 0.00 - 0.01 K/cumm ELVI Comment:Testing performed by : [address] [address] Blood 05/03/2024 5:28 AM ELECTRONICS ENGINEER 05/03/2024 5:35 AM ELECTRONICS ENGINEER us Timmy Hernandez MD LAB BLOOD ORDERABLES Final Result [facility] [address] [facility] Department [place] [address] * Phosphorus (05/03/2024 5:28 AM ELECTRONICS ENGINEER) Phosphorus, pl 3.4 2.3 - 4.5 mg/dL Comment:Testing performed by : [address] [address] Blood 05/03/2024 5:28 AM ELECTRONICS ENGINEER 05/03/2024 5:35 AM ELECTRONICS ENGINEER Timmy Hernandez MD LAB BLOOD ORDERABLES Final Result ELVI [address] [place] [address] * Magnesium (05/03/2024 5:28 AM ELECTRONICS ENGINEER) Pathologist [facility] Magnesium 2.1 1.4 - 2.5 mg/dL Comment:Testing performed by : [address] [address] Blood 05/03/2024 5:28 AM ELECTRONICS ENGINEER 05/03/2024 5:35 AM ELECTRONICS ENGINEER Timmy Hernandez MD LAB BLOOD ORDERABLES Final Result Performing Organization Address [facility] Co de Phone Number ELVI [address] [place] [address] * (ABNORMAL) Comprehensive metabolic panel (05/03/2024 5:28 AM ELECTRONICS ENGINEER) [facility] Sodium 132(L) 135 - 145 mmol/L Comment:Testing performed by : [address] [address] Potassium, pl 3.3 3.3 - 4.9 mmol/L ELVI Comment:Testing performed by : [address] [address] Chloride 95(L) 97 - 110 mmol/L ELVI Comment:Testing performed by : [address] [address] CO2 27 22 - 32 mmol/L ELVI Comment:Testing performed by : [address] [address] Anion gap 10 2 - 15 mmol/L ELVI Comment:Testing performed by : [address] [address] BUN 38(H) 6 - 25 mg/dL ELVI Comment:Testing performed by : [address] [address] Creatinine 3.20(H) 0.80 - 1.30 mg/dL ELVI Comment:Testing performed by : [address] [address] Glucose 122 70 - 199 mg/dL ELVI [...] was last revised 2022. Testing performed by: [address] [address] Calcium 8.0(L) 8.5 - 10.3 mg/dL ELVI Comment:Testing performed by : [address] [address] Bilirubin, total 0.5 0.1 - 1.2 mg/dL ELVI Comment:Testing performed by : [address] [address] Protein, pl 6.5 6.5 - 8.5 g/dL ELVI Comment:Testing performed by : [address] [address] Albumin 3.0(L) 3.5 - 5.0 g/dL ELVI Comment:Testing performed by : [address] [address] Alk phos 78 40 - 130 Units/L ELVI Comment:Testing performed by : [address] [address] ALT 35 7 - 55 Units/L ELVI Comment:Testing performed by : [address] [address] AST 24 10 - 50 Units/L ELVI Comment:Testing performed by : [address] [address] Blood 05/03/2024 5:28 AM ELECTRONICS ENGINEER 05/03/2024 5:35 AM ELECTRONICS ENGINEER us Timmy Hernandez MD LAB BLOOD ORDERABLES Final Result Performing Organization Address [facility] de Phone Number ELVI [address] [facility] [place] [address] * (ABNORMAL) Protein / creatinine ratio, urine, random (05/02/2024 5:41 PM ELECTRONICS ENGINEER) [facility] Protein, ur, quant 75.0 mg/dL Comment: Interpretive Data No reference range established. Current interpretive data was last revised 2018. Testing performed by: [address] [address] Creatinine Ur 60.1 mg/dL ELVI Comment: Interpretive Data No reference range established. Current interpretive data was last revised 2018. Testing performed by: [address] [address] Protein/creatinin e ratio 1,247.9(H ) 0.0 - 180.0 mg/g CR ELVI Comment:Testing performed by : [address] [address] Urine 05/02/2024 5:41 PM ELECTRONICS ENGINEER 05/02/2024 5:52 PM ELECTRONICS ENGINEER us Amaury Lezama MD LAB URINE ORDERABL ES Final Result Performing Organization Address [facility] de Phone Number [facility] [address] [facility] [place] [address] * (ABNORMAL) eGFR (05/02/2024 4:21 PM ELECTRONICS ENGINEER) [facility] eGFR 22(L) >=60 mL/min/1. 73 m2 [...] was last reviewed 2021. Testing performed by: [facility], [address] [place] [address]., [address] Blood 05/02/2024 4:21 PM ELECTRONICS ENGINEER 05/02/2024 4:45 PM ELECTRONICS ENGINEER Rosa Sofia MD LAB BLOOD ORDERABLES Abigail osria Result ELVI [address] [facility] Department [place] [address] * (ABNORMAL) Metanephrines, fractionated free, blood (05/02/2024 4:21 PM ELECTRONICS ENGINEER) Metanephrines 0.47 <0.50 nmol/L [facility] Comment: ADDITIONAL INFORMATION This test was developed and its performance characteristics determined by [facility] in a manner consistent with CLIA requirements. This test has not been cleared or approved by the U.S. Food and Drug Administration. Test Performed by: [facility] [address] [place] [id number] Host/Hostess: Darian Koo Ph.D.; CLIA# [id number] Testing performed by: [facility], [address] [place] [address]., [address] Normetanephrines 1.4(H) <0.90 nmol/L ELVI SNIDER Comment:Testing performed by : [facility], [address] [place] [address]., [address] Blood 05/02/2024 4:21 PM ELECTRONICS ENGINEER 05/02/2024 4:45 PM ELECTRONICS ENGINEER us Amaury Lezama MD LAB BLOOD ORDERABL ES Final Result ELVI SNIDER [address] [facility] Department [place] [address] [facility] * Renin activity (05/02/2024 4:21 PM ELECTRONICS ENGINEER) Renin 15 ng/mL/H [facility] Comment: REFERENCE VALUE (Peripheral vein specimen) Na-deplete, upright: ??Mean: 5.9 ??Range: 2.9-10.8 Na-replete, upright: ??Mean: 1.0 ??Range: < or =0.6-3.0 ADDITIONAL INFORMATION Testing performed by Liquid Chromatography-Tandem Mass Spectrometry (LC-MS/MS). This test was developed and its performance characteristics determined by [facility] in a manner consistent with CLIA requirements. This test has not been cleared or approved by the U.S. Food and Drug Administration. Test Performed by: [facility] [address] [place] [address] Host/Hostess: Darian Koo Ph.D.; CLIA# [id number] Testing performed by: [address] [address] Blood 05/02/2024 4:21 PM ELECTRONICS ENGINEER 05/02/2024 4:24 PM ELECTRONICS ENGINEER Amaury Lezama MD LAB BLOOD ORDERABL ES Final Result Performing Organization Address [facility] Co de Phone Number ELVI [address] [address] [facility] * HIV 1/2 Antibody plus p24 Antigen Blood (05/02/2024 4:21 PM ELECTRONICS ENGINEER) Pathologist [facility] HIV 1/2 ab + p24 ag Nonreactive Nonreactive Comment:Nonreactive for HIV- 1 antigen and HIV-1/HIV-2 antibodies. No laboratory evidence of HIV infection. If acute HIV infection is suspected, consider testing for HIV-1 RNA. Current interpretive data was last revised on 22. Blood 05/02/2024 4:21 PM ELECTRONICS ENGINEER 05/02/2024 6:24 PM ELECTRONICS ENGINEER Amaury Lezama MD LAB MICROBIOLOGY - GENERAL ORDERABLES Final Result Performing Organization Address [facility] de Phone Number ELVI [address] [address] * Aldosterone (05/02/2024 4:21 PM ELECTRONICS ENGINEER) Pathologist [facility] Aldosterone 15 <=21 ng/dL [facility] Comment: ADDITIONAL INFORMATION Reference range for patients 11 years and older is based on upright A.M. collection from subjects without sodium restrictions. This test was developed and its performance characteristics determined by [facility] in a manner consistent with CLIA requirements. This test has not been cleared or approved by the U.S. Food and Drug Administration. Test Performed by: [facility] [address] [place] [address] Host/Hostess: Darian Koo Ph.D.; CLIA# [id number] Testing performed by: [address] [address] Blood 05/02/2024 4:21 PM ELECTRONICS ENGINEER 05/02/2024 4:45 PM ELECTRONICS ENGINEER Amaury Lezama MD LAB BLOOD ORDERABL ES Final Result Performing Organization Address [facility] Co de Phone Number ELVI [address] [place] [address] [facility] * (ABNORMAL) Erythrocyte sedimentation rate (05/02/2024 4:21 PM ELECTRONICS ENGINEER) Erythrocyte sedimentation rate 61(H) 1 - 15 mm/hr Comment:Testing performed by : [address] [address] Blood 05/02/2024 4:21 PM ELECTRONICS ENGINEER 05/02/2024 4:45 PM ELECTRONICS ENGINEER Amaury Lezama MD LAB BLOOD ORDERABL ES Final Result Performing Organization Address [facility] de Phone Number ELVI [address] [address] * (ABNORMAL) D-dimer, quantitative (05/02/2024 4:21 PM ELECTRONICS ENGINEER) D-Dimer 880(H) <=499 ng/mL FEU Comment: Interpretive [...] last revised on 2019. Testing performed by: [address] [address] Blood 05/02/2024 4:21 PM ELECTRONICS ENGINEER 05/02/2024 4:45 PM ELECTRONICS ENGINEER Amaury Lezama MD LAB BLOOD ORDERABL ES Final Result Performing Organization Address City/[facility]/ZIP Co de Phone Number [address] [place] [address] * CRP (acute phase) (05/02/2024 4:21 PM ELECTRONICS ENGINEER) CRP 5.0 <=10.0 mg/L Comment:Testing performed by : [address] [address] Blood 05/02/2024 4:21 PM ELECTRONICS ENGINEER 05/02/2024 4:45 PM ELECTRONICS ENGINEER Amaury Lezama MD LAB BLOOD ORDERABL ES Final Result Performing Organization Address [facility] Co de Phone Number [address] [address] * Magnesium (05/02/2024 4:21 PM ELECTRONICS ENGINEER) Magnesium 1.8 1.4 - 2.5 mg/dL Comment:Testing performed by : [address] [address] Blood 05/02/2024 4:21 PM ELECTRONICS ENGINEER 05/02/2024 4:45 PM ELECTRONICS ENGINEER Rosa Sofia MD LAB BLOOD ORDERABLES Abigail l Result Performing Organization Address City/[facility]/ZIP Co de Phone Number [address] [address] * Cortisol (05/02/2024 4:21 PM ELECTRONICS ENGINEER) Cortisol 12.5 4.8 - 19.5 mcg/dl Blood 05/02/2024 4:21 PM ELECTRONICS ENGINEER 05/02/2024 6:24 PM ELECTRONICS ENGINEER Amaury Lezama MD LAB BLOOD ORDERABL ES Final Result [facility] [address] [facility] Department [place] [address] * (ABNORMAL) Basic metabolic panel (05/02/2024 4:21 PM ELECTRONICS ENGINEER) Sodium 136 135 - 145 mmol/L Comment:Testing performed by : [address] [address] Potassium, pl 3.4 3.3 - 4.9 mmol/L ELVI Comment:Testing performed by : [address] [address] Chloride 97 97 - 110 mmol/L ELVI Comment:Testing performed by : [address] [address] CO2 26 22 - 32 mmol/L ELVI Comment:Testing performed by : [address] [address] Anion gap 13 2 - 15 mmol/L ELVI Comment:Testing performed by : [address] [address] BUN 39(H) 6 - 25 mg/dL ELVI Comment:Testing performed by : [address] [address] Creatinine 3.40(H) 0.80 - 1.30 mg/dL ELVI Comment:Testing performed by : [address] [address] Glucose 122 70 - 199 mg/dL ELVI [...] was last revised 2022. Testing performed by: [address] [address] Calcium 8.2(L) 8.5 - 10.3 mg/dL ELVI Comment:Testing performed by : [address] [address] Blood 05/02/2024 4:21 PM ELECTRONICS ENGINEER 05/02/2024 4:45 PM ELECTRONICS ENGINEER Rosa Sofia MD LAB BLOOD ORDERABLES Abigail l Result Performing Organization Address [facility]/ZIP Co de Phone Number [place] [address] [facility] [place] [address] * (ABNORMAL) Troponin T high-sensitivity 6-hour (05/02/2024 10:58 AM ELECTRONICS ENGINEER) Trop T hs 89(H) <=22 ng/L Comment: Interpretive Data For further hscTnT resources including the diagnostic algorithm and an aid in interpretation, copy and paste this link: https://nrl.testcatalog.org/show/hsTrop Current Interpretive Data last revised 2020. Testing performed by: [address] [address] Trop T hs pct delta -15 % ELVI Comment:Testing performed by : [address] [address] Trop T hs interp Equivocal ELVI Comment:Testing performed by : [address] [address] Blood 05/02/2024 10:5 8 AM ELECTRONICS ENGINEER 05/02/2024 11:03 AM ELECTRONICS ENGINEER Alfred Thompson DO LAB BLOOD ORDERABLES Final Result Performing Organization Address City/[facility]/ZIP Co de Phone Number [facility] [address] [place] [address] * Critical Care (05/02/2024 10:19 AM ELECTRONICS ENGINEER) Narrative Rosa Sofia MD - 05/02/2024 10:19 AM ELECTRONICS ENGINEER Rosa Sofia MD ? 05/02/2024 ??4:59 PM [...] plan with the patient's team and other medical/hr shared services consultant staff. This time was in addition to and separate from care provided by other practitioners on this day of service. ?? us Rosa Sofia MD IN CLINIC/BEDSIDE ORDERAB LES Final Result * (ABNORMAL) Troponin T high-sensitivity 4-hour (05/02/2024 8:13 AM ELECTRONICS ENGINEER) Trop T hs 90(H) <=22 ng/L Comment: Interpretive Data For further hscTnT resources including the diagnostic algorithm and an aid in interpretation, copy and paste this link: https://nrl.testcatalog.org/show/hsTrop Current Interpretive Data last revised 2020. Testing performed by: [address] [address] Trop T hs pct delta -14 % ELVI Comment:Testing performed by : [address] [address] Trop T hs interp Equivocal ELVI Comment:Testing performed by : [address] [address] Blood 05/02/2024 8:13 AM ELECTRONICS ENGINEER 05/02/2024 8:18 AM ELECTRONICS ENGINEER us Alfred Thompson DO LAB BLOOD ORDERABLES Final Result Performing Organization Address [facility] Co de Phone Number [address] [address] * Folate (05/02/2024 7:59 AM ELECTRONICS ENGINEER) Pathologist [facility] Folic acid 9.4 >=5.0 ng/mL Comment:Testing performed by : [address] [address] Blood 05/02/2024 7:59 AM ELECTRONICS ENGINEER 05/02/2024 8:18 AM ELECTRONICS ENGINEER Amaury Lezama MD LAB BLOOD ORDERABL ES Final Result Performing Organization Address [facility] de Phone Number [address] [address] * Vitamin B12 (05/02/2024 7:59 AM ELECTRONICS ENGINEER) [facility] Vitamin B12 721 230 - 1,250 pg/mL Comment:Testing performed by : [facility], [address] [place] [address]., [address] Blood 05/02/2024 7:59 AM ELECTRONICS ENGINEER 05/02/2024 8:18 AM ELECTRONICS ENGINEER Amaury Lezama MD LAB BLOOD ORDERABL ES Final Result Performing Organization Address [facility] Co de Phone Number [address] [address] * Drugs of Abuse Screen, Urine with Reflex Confirmation (05/02/2024 7:51 AM ELECTRONICS ENGINEER) Pathologist [facility] Amphetamine, ur Not Detected CutOff 500ng/mL Comment: Interpretive Data - Amphetamines: ??Samples containing greater than 500 ng/mL d-methamphetamine ??or other cross-reacting amphetamine compounds are reported as positive. ??Amphetamine immunoassays are subject to significant false positive rates due to cross-reactivity of non-amphetamine drugs. Confirmatory testing required for definitive results. Current Interpretive Data was last reviewed 2022. Testing performed by: [address] [address] Barbiturates, ur Not Detected CutOff 200ng/mL [facility] Comment: Interpretive Data - Barbiturates: ??Samples containing greater than 200 ng/mL secobarbital or other cross-reacting barbiturate compounds are reported as positive. ??False positive and false negative results are possible. Confirmatory testing required for definitive results. Current Interpretive Data was last reviewed 2022. Testing performed by: [address] [address] Benzodiazepines, ur Not Detected CutOff 100ng/mL [facility] Comment: Interpretive Data - Benzodiazepines: ??Samples containing greater than 100 ng/mL nordiazepam or other cross-reacting compounds are reported as positive. False positive and false negative results are possible. Confirmatory testing required for definitive results. Current Interpretive Data was last reviewed 2022. Testing performed by: [address] [address] Cannabinoids, ur Not Detected CutOff 50 ng/mL [facility] Comment: Interpretive Data - Cannabinoids: ??Samples containing greater than 50 ng/mL delta-9 THC -COOH or other cross-reacting compounds are reported as positive. ??False positive and false negative results are possible. ??Confirmatory testing required for definitive results. Current Interpretive Data was last reviewed 2022. Testing performed by: [address] [address] Cocaine, ur Not Detected CutOff 150ng/mL [facility] Comment: Interpretive Data - Cocaine: ??Samples containing greater than 150 ng/mL benzoylecgonine or other cross-reacting compounds are reported as positive. False positive and false negative results are possible. Confirmatory testing required for definitive results. Current Interpretive Data was last reviewed 2022. Testing performed by: [address] [address] Fentanyl, Ur Not Detected Cutoff 1 ng/mL [facility] Comment: Interpretive Data - Fentanyl: ??Samples containing greater than 1 ng/mL fentanyl or other cross-reacting fentanyl compounds are reported as positive. ??False positive and false negative results are possible. Confirmatory testing required for definitive results. Current Interpretive Data was last reviewed 2022. Testing performed by: [facility], [address] [place] [address]., [address] Methadone, ur Not Detected CutOff 300ng/mL [facility] Comment: Interpretive Data - Methadone: ??Samples containing greater than 300 ng/mL d,l-methadone or other cross-reacting compounds are reported as positive. ??False positive and false negative results are possible. Confirmatory testing required for definitive results. Current Interpretive Data was last reviewed 2022. Testing performed by: [facility], [address] [place] [address]., [address] Opiates, ur Not Detected CutOff 300ng/mL [facility] Comment: Interpretive Data - Opiates: ??Samples containing greater than 300 ng/mL morphine or other cross-reacting compounds are reported as positive. ??False positive and false negative results are possible. Confirmatory testing required for definitive results. Current Interpretive Data was last reviewed 2022. Testing performed by: [address] [address] Oxycodone, ur Not Detected CutOff 100ng/mL [facility] Comment: Interpretive Data - Oxycodone: ??Samples containing greater than 100 ng/mL oxycodone or other cross-reacting compounds are reported as ??positive. ??False positive and false negative results are possible. Confirmatory testing required for definitive results. Current Interpretive Data was last reviewed 2022. Testing performed by: [address] [address] Phencyclidine, ur Not Detected CutOff 25 ng/mL [facility] Comment: Interpretive Data - Phencyclidine: ??Samples containing greater than 25 ng/mL phencyclidine or other cross-reacting compounds are reported as positive. ??False positive and false negative results are possible. Confirmatory testing required for definitive results. Current Interpretive Data was last reviewed 2022. Testing performed by: [address] [address] Urine Creatinine 15 mg/dL [facility] Comment: Interpretive Data Urine Creatinine: < 10 mg/dL is extremely dilute = or > 10 but < 20 mg/dL is dilute = or > 20 mg/dL is normal Current Interpretive Data was last revised on 2017. Testing performed by: [address] [address] Urine 05/02/2024 7:51 AM ELECTRONICS ENGINEER 05/02/2024 8:18 AM ELECTRONICS ENGINEER Narrative ELVI - 05/02/2024 9:02 AM ELECTRONICS ENGINEER Drug of Abuse screening is performed by immunoassay for medical purposes only. ??This is not to be used for Pain Management purposes. ??If Detected, confirmation testing will be performed for Amphetamines, Cocaine, Fentanyl, Methadone, Opiates, Oxycodone or Phencyclidine. Amaury Lezama MD LAB URINE ORDERABL ES Final Result ELVI [address] [facility] Department of Laboratories [place], [place] [id number] * (ABNORMAL) Urinalysis reflex to microscopic and culture Urine (05/02/2024 7:51 AM ELECTRONICS ENGINEER) Color, ur Straw Yellow Comment:Testing performed by : [address] [address] Clarity, ur Clear Clear ELVI Comment:Testing performed by : [address] [address] Specific gravity, ur 1.005 1.003 - 1.030 ELVI Comment:Testing performed by : [address] [address] pH, urine 6.5 ELVI Comment: Interpretive Data ? Urine pH is affected by diet, medications, systemic acid-base disturbances, and renal tubular function. ??pH may affect urinary stone formation. ??For example, urine pH below 6.0 may help reduce the tendency for calcium phosphate stones and pH greater than 6.0 may reduce the tendency for uric acid stone formation. Source: [employer] Current Interpretive Data was last revised on 2017 Testing performed by: [address] [address] Protein, ur ql Trace(A) Negative ELVI Comment:Testing performed by : [address] [address] Glucose, ur ql Negative Negative ELVI SNIDER Comment:Testing performed by : [address], [place]., [address] Ketones, ur Negative Negative ELVI SNIDER Comment:Testing performed by : [address], [place]., [address] Bilirubin, ur Negative Negative ELVI SNIDER Comment:Testing performed by : [address], [place]., [address] Blood, ur Trace(A) Negative ELVI SNIDER Comment:Testing performed by : [address], [place]., [address] Urobilinogen, ur <2.0 <2.0 mg/dL ELVI SNIDER Comment:Testing performed by : [address], [place]., [address] Nitrite, ur Negative Negative ELVI SNIDER Comment:Testing performed by : [address], [place]., [address] Leukocyte esterase, ur Negative Negative ELVI Comment:Testing performed by : [address], [place]., [address] UA reflex comment Reflex to microscopic UA will be performed. ELVI SNIDER Comment:Testing performed by : [address] [address] Urine 05/02/2024 7:51 AM ELECTRONICS ENGINEER 05/02/2024 8:18 AM ELECTRONICS ENGINEER Amaury Lezama MD LAB MICROBIOLOGY - GENERAL ORDERABLES Final Result ELVI [address] [facility] Department [place] [address] * (ABNORMAL) Urinalysis, microscopic only (05/02/2024 7:51 AM ELECTRONICS ENGINEER) WBC, ur 0-5 0 - 5 /HPF Comment:Testing performed by : [address], [place]., [address] RBC, ur 0-2 0 - 2 /HPF ELVI SNIDER Comment:Testing performed by : [address] [address] Bacteria, ur Trace(A) ELVI SNIDER Comment:Testing performed by : [address] [address] Mucous, ur Present(A) ELVI SNIDER Comment:Testing performed by : [address] [address] Culture Reflex Comment Reflex conditions for urine culture (WBC >10) not met. ELVI Comment:Testing performed by : [address] [address] Urine 05/02/2024 7:51 AM ELECTRONICS ENGINEER 05/02/2024 8:18 AM ELECTRONICS ENGINEER us Amaury Lezama MD LAB URINE ORDERABL ES Final Result Performing Organization Address [facility] Co de Phone Number ELVI [address] [facility] Department [place] [address] * (ABNORMAL) Troponin T high-sensitivity 2-hour (05/02/2024 6:25 AM ELECTRONICS ENGINEER) Trop T hs 96(H) <=22 ng/L Comment: Interpretive Data For further hscTnT resources including the diagnostic algorithm and an aid in interpretation, copy and paste this link: [email or web address] Current Interpretive Data last revised 2020. Testing performed by: [address] [address] Trop T hs pct delta -9 % ELVI Comment:Testing performed by : [address] [address] Trop T hs interp Equivocal ELVI Comment:Testing performed by : [address] [address] Blood 05/02/2024 6:25 AM ELECTRONICS ENGINEER 05/02/2024 6:27 AM ELECTRONICS ENGINEER us Alfred Thompson DO LAB BLOOD ORDERABLES Final Result Performing Organization Address City/[facility] Co de Phone Number ELVI [address] [place] [address] * Thyroid Function [place] (05/02/2024 6:25 AM ELECTRONICS ENGINEER) Pathologist [facility] TSH 1.60 0.30 - 4.20 mcIUnit/mL Comment:Testing performed by : [address] [address] Blood 05/02/2024 6:25 AM ELECTRONICS ENGINEER 05/02/2024 7:23 AM ELECTRONICS ENGINEER Amaury Lezama MD LAB BLOOD ORDERABL ES Final Result Performing Organization Address [facility] de Phone Number ELVI [address] [place] [address] * (ABNORMAL) Iron profile w/ IBC (05/02/2024 6:25 AM ELECTRONICS ENGINEER) [facility] Iron 17(L) 50 - 150 mcg/dL Comment:Testing performed by : [address] [address] TIBC 284 250 - 400 mcg/dL ELVI Comment:Testing performed by : [address] [address] Transferrin saturation 6(L) 20 - 50 % ELVI Comment:Testing performed by : [address] [address] Blood 05/02/2024 6:25 AM ELECTRONICS ENGINEER 05/02/2024 7:23 AM ELECTRONICS ENGINEER Amaury Lezama MD LAB BLOOD ORDERABL ES Final Result Performing Organization Address [facility] Co de Phone Number AM[address] [place] [address] * CRP (acute phase) (05/02/2024 6:25 AM ELECTRONICS ENGINEER) [facility] CRP 5.4 <=10.0 mg/L Comment:Testing performed by : [address] [address] Blood 05/02/2024 6:25 AM ELECTRONICS ENGINEER 05/02/2024 7:23 AM ELECTRONICS ENGINEER Amaury Lezama MD LAB BLOOD ORDERABL ES Final Result Performing Organization Address City/[facility]/ZIP Co de Phone Number [address] [place] [address] * Ferritin (05/02/2024 6:25 AM ELECTRONICS ENGINEER) Ferritin 174 30 - 400 ng/mL Comment:Testing performed by : [address] [address] Blood 05/02/2024 6:25 AM ELECTRONICS ENGINEER 05/02/2024 7:23 AM ELECTRONICS ENGINEER Result [facility] Amaury Lezama MD LAB BLOOD ORDERABL ES Final Result Performing Organization Address [facility] de Phone Number [address] [place] [address] * (ABNORMAL) Troponin T high-sensitivity series (baseline, 2hr, 4hr, 6hr) (05/02/2024 4:41 AM ELECTRONICS ENGINEER) Trop T hs 105(H) <=22 ng/L Comment: Interpretive Data For further hscTnT resources including the diagnostic algorithm and an aid in interpretation, copy and paste this link: [email or web address] Current Interpretive Data last revised 2020. Testing performed by: [address] [address] Blood 05/02/2024 4:41 AM ELECTRONICS ENGINEER 05/02/2024 4:45 AM ELECTRONICS ENGINEER Alfred Thompson DO LAB BLOOD ORDERABLES Final Result Performing Organization Address [facility] Co de Phone Number [address] [place] [address] * (ABNORMAL) eGFR (05/02/2024 4:41 AM ELECTRONICS ENGINEER) [facility] eGFR 23(L) >=60 mL/min/1. 73 m2 Comment: [...] was last reviewed 2021. Testing performed by: [facility], [address] [place] [address]., [address] Blood 05/02/2024 4:41 AM ELECTRONICS ENGINEER 05/02/2024 4:45 AM ELECTRONICS ENGINEER us Alfred Thompson DO LAB BLOOD ORDERABLES Final Result ELVI [address] [facility] Department [place] [address] * Differential, auto (05/02/2024 4:41 AM ELECTRONICS ENGINEER) [facility] Neutrophil abs 6.2 1.5 - 6.5 K/cumm Comment:Testing performed by : [facility], [address] [place] [address], [place]., [address] Imm gran abs 0.0 0.0 - 0.1 K/cumm [facility] Comment:Testing performed by : [address], [place]., [address] Lymphocyte abs 1.2 0.8 - 3.3 K/cumm [facility] Comment:Testing performed by : [address], [place]., [address] Monocyte abs 0.6 0.2 - 0.8 K/cumm [facility] Comment:Testing performed by : [address], [place]., [address] Eosinophil abs 0.1 0.0 - 0.5 K/cumm [facility] Comment:Testing performed by : [address] [address] Basophil abs 0.0 0.0 - 0.1 K/cumm [facility] Comment:Testing performed by : [address] [address] Neutrophil pct 76.6 % [facility] Comment: Interpretive Data Percent cell count reference ranges are not reported, since discordance with absolute values may lead to misinterpretation of CBC data. Current Interpretive Data was last revised on 2017. Testing performed by: [address] [address] Imm gran pct 0.4 % [facility] Comment: Interpretive Data Percent cell count reference ranges are not reported, since discordance with absolute values may lead to misinterpretation of CBC data. Current Interpretive Data was last revised on 2017. Testing performed by: [address] [address] Lymphocyte pct 14.2 % C[facility] Comment: Interpretive Data Percent cell count reference ranges are not reported, since discordance with absolute values may lead to misinterpretation of CBC data. Current Interpretive Data was last revised on 2017. Testing performed by: [address] [address] Monocyte pct 7.0 % [facility] Comment: Interpretive Data Percent cell count reference ranges are not reported, since discordance with absolute values may lead to misinterpretation of CBC data. Current Interpretive Data was last revised on 2017. Testing performed by: [address] [address] Eosinophil pct 1.4 % ELVI Comment: Interpretive Data Percent cell count reference ranges are not reported, since discordance with absolute values may lead to misinterpretation of CBC data. Current Interpretive Data was last revised on 2017. Testing performed by: [address] [address] Basophil pct 0.4 % ELVI Comment: Interpretive Data Percent cell count reference ranges are not reported, since discordance with absolute values may lead to misinterpretation of CBC data. Current Interpretive Data was last revised on 2017. Testing performed by: [address] [address] Blood 05/02/2024 4:41 AM ELECTRONICS ENGINEER 05/02/2024 4:45 AM ELECTRONICS ENGINEER us Alfred Thompson DO LAB BLOOD ORDERABLES Final Result ELVI [address] [facility] Department [place] [address] * (ABNORMAL) Pro B-type natriuretic peptide (05/02/2024 4:41 AM ELECTRONICS ENGINEER) NT-proBNP 6,485(H) <=300 pg/mL Comment: Interpretive Comments: [...] Last Revised Date: 2018. Testing performed by: [address] [address] Blood 05/02/2024 4:41 AM ELECTRONICS ENGINEER 05/02/2024 4:45 AM ELECTRONICS ENGINEER us Alfred Thompson DO LAB BLOOD ORDERABLES Final Result AMADOUAWR [address] [facility] Department [place] [address] * (ABNORMAL) CBC with auto differential (05/02/2024 4:41 AM ELECTRONICS ENGINEER) [facility] WBC 8.1 3.8 - 9.9 K/cumm Comment:Testing performed by : [address] [address] Hgb 9.4(L) 13.0 - 17.5 g/dL ELVI Comment:Testing performed by : [address] [address] Hct 30.3(L) 38.9 - 50.3 % ELVI Comment:Testing performed by : [address] [address] Plt 322 150 - 400 K/cumm ELVI Comment:Testing performed by : [address] [address] MPV 9.1 9.1 - 12.3 fL ELVI Comment:Testing performed by : [address] [address] RBC 3.77(L) 4.30 - 5.80 M/cumm ELVI Comment:Testing performed by : [address] [address] MCV 80.4(L) 81.3 - 96.4 fL ELVI Comment:Testing performed by : [address] [address] MCH 24.9(L) 27.1 - 33.3 pg ELVI Comment:Testing performed by : [address] [address] MCHC 31.0(L) 32.3 - 35.7 g/dL ELVI Comment:Testing performed by : [address] [address] RDW CV 16.8(H) 11.1 - 14.9 % ELVI Comment:Testing performed by : [address] [address] RDW SD 48.6(H) 35.7 - 48.1 fL ELVI Comment:Testing performed by : [address] [address] NRBC abs 0.00 0.00 - 0.01 K/cumm ELVI Comment:Testing performed by : [address] [address] Blood 05/02/2024 4:41 AM ELECTRONICS ENGINEER 05/02/2024 4:45 AM ELECTRONICS ENGINEER us Alfred Thompson DO LAB BLOOD ORDERABLES Final Result Performing Organization Address [facility] Co de Phone Number ELVI [address] [address] * (ABNORMAL) Reticulocyte Count (05/02/2024 4:41 AM ELECTRONICS ENGINEER) Pathologist [facility] Retics, absolute 0.126(H) 0.020 - 0.087 M/cumm Comment:Testing performed by : [address] [address] Retics 3.3(H) 0.4 - 2.9 % ELVI SNIDER Comment:Testing performed by : [address] [address] Reticulocyte Hgb 20.3(L) 30.5 - 38.0 pg ELVI SNIDER Comment:Testing performed by : [address] [address] Blood 05/02/2024 4:41 AM ELECTRONICS ENGINEER 05/02/2024 7:23 AM ELECTRONICS ENGINEER Amaury Lezama MD LAB BLOOD ORDERABL ES Final Result Performing Organization Address [facility] Co de Phone Number [address] [address] * (ABNORMAL) Comprehensive metabolic panel (05/02/2024 4:41 AM ELECTRONICS ENGINEER) [facility] Sodium 134(L) 135 - 145 mmol/L Comment:Testing performed by : [address] [address] Potassium, pl 3.3 3.3 - 4.9 mmol/L ELVI SNIDER Comment:Testing performed by : [address] [address] Chloride 98 97 - 110 mmol/L ELVI SNIDER Comment:Testing performed by : [address] [address] CO2 23 22 - 32 mmol/L ELVI SNIDER Comment:Testing performed by : [address] [address] Anion gap 13 2 - 15 mmol/L ELVI Comment:Testing performed by : [address] [address] BUN 38(H) 6 - 25 mg/dL ELVI Comment:Testing performed by : [address] [address] Creatinine 3.30(H) 0.80 - 1.30 mg/dL ELVI Comment:Testing performed by : [address] [address] Glucose 108 70 - 199 mg/dL ELVI [...] was last revised 2022. Testing performed by: [address] [address] Calcium 7.9(L) 8.5 - 10.3 mg/dL ELVI Comment:Testing performed by : [address] [address] Bilirubin, total 0.8 0.1 - 1.2 mg/dL ELVI Comment:Testing performed by : [address] [address] Protein, pl 7.1 6.5 - 8.5 g/dL ELVI Comment:Testing performed by : [address] [address] Albumin 3.2(L) 3.5 - 5.0 g/dL ELVI Comment:Testing performed by : [address] [address] Alk phos 82 40 - 130 Units/L ELVI SNIDER Comment:Testing performed by : [address] [address] ALT 45 7 - 55 Units/L ELVI SNIDER Comment:Testing performed by : [address] [address] AST 34 10 - 50 Units/L ELVI SNIDER Comment:Testing performed by : [address] [address] Blood 05/02/2024 4:41 AM ELECTRONICS ENGINEER 05/02/2024 4:45 AM ELECTRONICS ENGINEER us Alfred Thompson DO LAB BLOOD ORDERABLES Final Result ELVI SNIDER [address] [facility] Department [place] [address] * XR Chest 1 Vw Portable (05/02/2024 4:29 AM ELECTRONICS ENGINEER) Anatomical Region Laterality Modality Body, Chest N/A Computed Radiogr aphy 05/02/2024 4:32 AM ELECTRONICS ENGINEER Narrative 05/02/2024 4:36 AM ELECTRONICS ENGINEER EXAM DESCRIPTION: XR CHEST 1 VIEW REASON [...] 4:36 AM - Electronically signed by ??Shaggy PHELAN: ZHANE D: ??05/02/2024 4:36 AM T: ??05/02/2024 4:36 AM Report ID: [id number] Reading Location: ??[id number] Procedure Note Shaggy Hernandez MD - 05/02/2024 [...] 4:36 AM - Electronically signed by Shaggy PHELAN: ZHANE Report ID: [id number] Reading Location: [id number] us Alfred Thompson DO IMG XR PROCEDURES Final Res ult * CO CRITICAL CARE ILL/INJURED PATIENT INIT 30-74 MIN (05/02/2024 4:23 AM ELECTRONICS ENGINEER) Narrative Alfred Thompson DO - 05/02/2024 4:23 AM ELECTRONICS ENGINEER Alfred Thompson, DO ? 05/02/2024 ??6:11 AM Critical Care Performed by: Alfred Thompson DO Authorized by: Alfred Thompson DO ?? Critical care provider statement: As reflected [...] * ECG 12 lead (05/02/2024 4:22 AM ELECTRONICS ENGINEER) [facility] Ventricular Rate EKG/Min 87 BPM [facility] Atrial Rate 87 BPM [facility] CO-Interval (MSEC) 180 ms [facility] QRS-Interval (MSEC) 116 ms [facility] QT-Interval (MSEC) 438 ms [facility] QTc 527 ms [facility] P [place] 23 degrees [facility] R [place] -49 degrees [facility] T [place] 70 degrees [facility] Diagnosis Normal sinus rhythm Biatrial enlargement Left axis deviation Possible Anterior infarct (cited on or before 15-JUN-2018) Prolonged QT Abnormal ECG When compared with ECG of 14-APR-2024 08:58, T wave inversion less evident in Lateral leads Confirmed by JOSE ADAMSON M.D. ([id number]) on 05/02/2024 9:50:05 PM [facility] 05/02/2024 4:22 AM ELECTRONICS ENGINEER 05/02/2024 9:50 PM ELECTRONICS ENGINEER Alfred Thompson DO ECG ORDERABLES Final Resul t [facility] * (ABNORMAL) eGFR (04/16/2024 8:00 AM ELECTRONICS ENGINEER) Pathologist [facility] eGFR 24(L) >=60 mL/min/1. 73 m2 [...] last reviewed 2021. Blood 04/16/2024 8:00 AM ELECTRONICS ENGINEER 04/16/2024 8:32 AM ELECTRONICS ENGINEER Elias Fenton MD LAB BLOOD ORDERABLES Fi nal Result Performing Organization Address City/State/[facility] Co ks Phone Number [facility] [address] [facility] Department [place] [address] * Differential, auto (04/16/2024 8:00 AM ELECTRONICS ENGINEER) Pathologist [facility] Neutrophil abs 2.3 1.5 - 6.5 K/cumm Imm gran abs 0.0 0.0 - 0.1 K/cumm [facility] Lymphocyte abs 1.6 0.8 - 3.3 K/cumm [facility] Monocyte abs 0.5 0.2 - 0.8 K/cumm [facility] Eosinophil abs 0.2 0.0 - 0.5 K/cumm [facility] Basophil abs 0.0 0.0 - 0.1 K/cumm [facility] Neutrophil pct 49.3 % [facility] Comment: Interpretive Data Percent cell count reference ranges are not reported, since discordance with absolute values may lead to misinterpretation of CBC data. Current Interpretive Data was last revised on 2017. Imm gran pct 0.2 % [facility] Comment: Interpretive Data Percent cell count reference ranges are not reported, since discordance with absolute values may lead to misinterpretation of CBC data. Current Interpretive Data was last revised on 2017. Lymphocyte pct 33.8 % [facility] Comment: Interpretive Data Percent cell count reference ranges are not reported, since discordance with absolute values may lead to misinterpretation of CBC data. Current Interpretive Data was last revised on 2017. Monocyte pct 11.4 % [facility] Comment: Interpretive Data Percent cell count reference ranges are not reported, since discordance with absolute values may lead to misinterpretation of CBC data. Current Interpretive Data was last revised on 2017. Eosinophil pct 4.4 % [facility] Comment: Interpretive Data Percent cell count reference ranges are not reported, since discordance with absolute values may lead to misinterpretation of CBC data. Current Interpretive Data was last revised on 2017. Basophil pct 0.9 % [facility] Comment: Interpretive Data Percent cell count reference ranges are not reported, since discordance with absolute values may lead to misinterpretation of CBC data. Current Interpretive Data was last revised on 2017. Blood 04/16/2024 8:00 AM ELECTRONICS ENGINEER 04/16/2024 8:32 AM ELECTRONICS ENGINEER us Elias Fenton MD LAB BLOOD ORDERABLES Fi nal Result [facility] [address] [facility] Department [place] [address] * (ABNORMAL) CBC with auto differential (04/16/2024 8:00 AM ELECTRONICS ENGINEER) Pathologist [facility] WBC 4.6 3.8 - 9.9 K/cumm Hgb 12.1(L) 13.0 - 17.5 g/dL [facility] Hct 38.6(L) 38.9 - 50.3 % [facility] Plt 283 150 - 400 K/cumm [facility] MPV 9.5 9.1 - 12.3 fL [facility] RBC 4.73 4.30 - 5.80 M/cumm [facility] MCV 81.6 81.3 - 96.4 fL [facility] MCH 25.6(L) 27.1 - 33.3 pg [facility] MCHC 31.3(L) 32.3 - 35.7 g/dL [facility] RDW CV 17.0(H) 11.1 - 14.9 % [facility] RDW SD 50.3(H) 35.7 - 48.1 fL [facility] NRBC abs 0.00 0.00 - 0.01 K/cumm [facility] Blood 04/16/2024 8:00 AM ELECTRONICS ENGINEER 04/16/2024 8:32 AM ELECTRONICS ENGINEER Elias Fenton MD LAB BLOOD ORDERABLES Ed ited Result - Final Performing Organization Address City/[facility] Co de Phone Number ELVI [address] [employer] [place] [address] * (ABNORMAL) Manual Differential (04/16/2024 8:00 AM ELECTRONICS ENGINEER) Differential Auto RBC morphology Present(A) [facility] Polychromasia 3-7/HPF(A) [facility] Poikilocytosis Slight(A) [facility] Elliptocytes 3-7/HPF(A) [facility] Target cells 3-7/HPF(A) [facility] Platelet estimate Automated Count Confirmed [facility] Blood 04/16/2024 8:00 AM ELECTRONICS ENGINEER 04/16/2024 8:32 AM ELECTRONICS ENGINEER Elias Fenton MD LAB BLOOD ORDERABLES Fi nal Result Performing Organization Address City/[facility]/ZIP Co de Phone Number ELVI [address] [address] * Magnesium (04/16/2024 8:00 AM ELECTRONICS ENGINEER) Pathologist [facility] Magnesium 2.3 1.4 - 2.5 mg/dL Blood 04/16/2024 8:00 AM ELECTRONICS ENGINEER 04/16/2024 8:32 AM ELECTRONICS ENGINEER Elias Fenton MD LAB BLOOD ORDERABLES Fi nal Result Performing Organization Address City/[facility]/ZIP Co de Phone Number [place] [address] [facility] [place] [address] * (ABNORMAL) Hepatic function panel (04/16/2024 8:00 AM ELECTRONICS ENGINEER) [facility] Bilirubin, total 0.4 0.1 - 1.2 mg/dL Bilirubin, direct <0.2 0.1 - 0.3 mg/dL [facility] Protein, pl 7.4 6.5 - 8.5 g/dL [facility] Albumin 3.2(L) 3.5 - 5.0 g/dL [facility] Alk phos 72 40 - 130 Units/L [facility] ALT 31 7 - 55 Units/L [facility] AST 28 10 - 50 Units/L [facility] Blood 04/16/2024 8:00 AM ELECTRONICS ENGINEER 04/16/2024 8:32 AM ELECTRONICS ENGINEER Result [facility] Elias Fenton MD LAB BLOOD ORDERABLES Fi nal Result Performing Organization Address City/[facility]/ZIP Co de Phone Number [address] [employer] [place] [address] * Lipid panel (04/16/2024 8:00 AM ELECTRONICS ENGINEER) [facility] Cholesterol 167 30 - 199 mg/dL Comment: [...] revised on 2018. Triglycerides 87 <=149 mg/dL ELVI Comment: Interpretive Data Ages < [...] revised on 2024. Non-HDL Cholesterol 117 mg/dL ELVI Comment: Interpretive Data Ages < [...] last revised on 2018. Chol/HDL ratio 3 ELVI Blood 04/16/2024 8:00 AM ELECTRONICS ENGINEER 04/16/2024 8:32 AM ELECTRONICS ENGINEER Elias Fenton MD LAB BLOOD ORDERABLES Fi nal Result Performing Organization Address [facility] Co de Phone Number ELVI [address] [place] [address] * (ABNORMAL) Basic metabolic panel (04/16/2024 8:00 AM ELECTRONICS ENGINEER) Pathologist [facility] Sodium 136 135 - 145 mmol/L Potassium, pl 4.2 3.3 - 4.9 mmol/L [facility] Chloride 103 97 - 110 mmol/L [facility] CO2 23 22 - 32 mmol/L [facility] Anion gap 10 2 - 15 mmol/L [facility] BUN 30(H) 6 - 25 mg/dL [facility] Creatinine 3.26(H) 0.80 - 1.30 mg/dL [facility] Glucose 105 70 - 199 mg/dL [facility] Comment: Interpretive Data Fasting glucose >/= [...] 2022. Calcium 9.0 8.5 - 10.3 mg/dL [facility] Blood 04/16/2024 8:00 AM ELECTRONICS ENGINEER 04/16/2024 8:32 AM ELECTRONICS ENGINEER Elias Fenton MD LAB BLOOD ORDERABLES Fi nal Result Performing Organization Address City/[facility] Co de Phone Number ELVI [address] [place] [address] [place] [address] * TRANSTHORACIC ECHO (TTE) COMPLETE W DOPPLER/CF WO CONTRAST (04/15/2024 3:37 PM ELECTRONICS ENGINEER) Anatomical Region Laterality Modality Ultrasound 04/15/2024 3:14 PM ELECTRONICS ENGINEER Narrative 04/15/2024 6:57 PM ELECTRONICS ENGINEER ? Adult Echocardiogram + ----- + :Name: SHARRON HEADLEY Zaria, IIIStudy Date: 04/15/2024 ?Status: MHB ? : : ? Patient Location: MHB 2 NE^[id number]^MHBHeit: 72 in ? : : ? Weight: 200 lbBP: 169/138 mmHg: :: 1985 ?Gender: Male ?BSA: 2.1 m2 ? : :Reason For Study: acute CHF exac ? : :Ordering Physician: ?: :FENTON, ELIAS ? : : ? : :Performed By: Lynn ? : :Ramberg, RDCS ?: + ----- + Procedure A [...] 04/15/2024 Adult Echocardiogram + ----- + :Name: IRISH SHARRON E, IIIStudy Date: 04/15/2024Status: DEEPA : : Patient Location: [facility] 2NE^[id number]^MHBHeight: 72 in : : : 200 lbBP: [...] Result * (ABNORMAL) eGFR (04/15/2024 12:45 PM ELECTRONICS ENGINEER) eGFR 24(L) >=60 mL/min/1. 73 m2 Comment: [...] reviewed 2021. Blood 04/15/2024 12:4 5 PM ELECTRONICS ENGINEER 04/15/2024 1:00 PM ELECTRONICS ENGINEER Elias Fenton MD LAB BLOOD ORDERABLES Fi nal Result Performing Organization Address [facility] de Phone Number [address] [address] * Magnesium (04/15/2024 12:45 PM ELECTRONICS ENGINEER) Magnesium 2.4 1.4 - 2.5 mg/dL Blood 04/15/2024 12:4 5 PM ELECTRONICS ENGINEER 04/15/2024 1:00 PM ELECTRONICS ENGINEER Elias Fenton MD LAB BLOOD ORDERABLES Fi nal Result Performing Organization Address [facility] de Phone Number [address] [place] [address] * (ABNORMAL) Basic metabolic panel (04/15/2024 12:45 PM ELECTRONICS ENGINEER) Sodium 134(L) 135 - 145 mmol/L Potassium, pl 3.9 3.3 - 4.9 mmol/L [facility] Chloride 102 97 - 110 mmol/L [facility] CO2 23 22 - 32 mmol/L [facility] Anion gap 9 2 - 15 mmol/L [facility] BUN 30(H) 6 - 25 mg/dL [facility] Creatinine 3.20(H) 0.80 - 1.30 mg/dL [facility] Glucose 114 70 - 199 mg/dL [facility] Comment: Interpretive Data Fasting glucose >/= [...] 2022. Calcium 8.7 8.5 - 10.3 mg/dL [facility] Blood 04/15/2024 12:4 5 PM ELECTRONICS ENGINEER 04/15/2024 1:00 PM ELECTRONICS ENGINEER us Elias Fenton MD LAB BLOOD ORDERABLES Fi nal Result [facility] [address] [facility] [place] [address] * (ABNORMAL) eGFR (04/15/2024 2:50 AM ELECTRONICS ENGINEER) [facility] eGFR 24(L) >=60 mL/min/1. 73 m2 [...] last reviewed 2021. Blood 04/15/2024 2:50 AM ELECTRONICS ENGINEER 04/15/2024 3:31 AM ELECTRONICS ENGINEER Darryn Childress MD LAB BLOOD ORDERABLES Final Result [facility] [address] [facility] Department [place] [address] * Differential, auto (04/15/2024 2:50 AM ELECTRONICS ENGINEER) Pathologist [facility] Neutrophil abs 3.7 1.5 - 6.5 K/cumm Imm gran abs 0.0 0.0 - 0.1 K/cumm [facility] Lymphocyte abs 1.3 0.8 - 3.3 K/cumm [facility] Monocyte abs 0.6 0.2 - 0.8 K/cumm [facility] Eosinophil abs 0.1 0.0 - 0.5 K/cumm [facility] Basophil abs 0.0 0.0 - 0.1 K/cumm [facility] Neutrophil pct 63.6 % [facility] Comment: Interpretive Data Percent cell count reference ranges are not reported, since discordance with absolute values may lead to misinterpretation of CBC data. Current Interpretive Data was last revised on 2017. Imm gran pct 0.3 % [facility] Comment: Interpretive Data Percent cell count reference ranges are not reported, since discordance with absolute values may lead to misinterpretation of CBC data. Current Interpretive Data was last revised on 2017. Lymphocyte pct 22.9 % [facility] Comment: Interpretive Data Percent cell count reference ranges are not reported, since discordance with absolute values may lead to misinterpretation of CBC data. Current Interpretive Data was last revised on 2017. Monocyte pct 10.4 % [facility] Comment: Interpretive Data Percent cell count reference ranges are not reported, since discordance with absolute values may lead to misinterpretation of CBC data. Current Interpretive Data was last revised on 2017. Eosinophil pct 2.1 % [facility] Comment: Interpretive Data Percent cell count reference ranges are not reported, since discordance with absolute values may lead to misinterpretation of CBC data. Current Interpretive Data was last revised on 2017. Basophil pct 0.7 % [facility] Comment: Interpretive Data Percent cell count reference ranges are not reported, since discordance with absolute values may lead to misinterpretation of CBC data. Current Interpretive Data was last revised on 2017. Blood 04/15/2024 2:50 AM ELECTRONICS ENGINEER 04/15/2024 3:31 AM ELECTRONICS ENGINEER Darryn Childress MD LAB BLOOD ORDERABLES Final Result [facility] [address] [facility] Department of Laboratories [place], [place] [id number] * (ABNORMAL) CBC with auto differential (04/15/2024 2:50 AM ELECTRONICS ENGINEER) Pathologist [facility] WBC 5.8 3.8 - 9.9 K/cumm Hgb 10.6(L) 13.0 - 17.5 g/dL [facility] Hct 33.2(L) 38.9 - 50.3 % [facility] Plt 251 150 - 400 K/cumm [facility] MPV 9.7 9.1 - 12.3 fL [facility] RBC 4.15(L) 4.30 - 5.80 M/cumm [facility] MCV 80.0(L) 81.3 - 96.4 fL [facility] MCH 25.5(L) 27.1 - 33.3 pg [facility] MCHC 31.9(L) 32.3 - 35.7 g/dL [facility] RDW CV 17.2(H) 11.1 - 14.9 % [facility] RDW SD 50.2(H) 35.7 - 48.1 fL [facility] NRBC abs 0.00 0.00 - 0.01 K/cumm [facility] Blood 04/15/2024 2:50 AM ELECTRONICS ENGINEER 04/15/2024 3:31 AM ELECTRONICS ENGINEER Darryn Childress MD LAB BLOOD ORDERABLES Final Result Performing Organization Address City/[facility]/ZIP Co de Phone Number [address] [address] * Magnesium (04/15/2024 2:50 AM ELECTRONICS ENGINEER) [facility] Magnesium 1.8 1.4 - 2.5 mg/dL Blood 04/15/2024 2:50 AM ELECTRONICS ENGINEER 04/15/2024 3:31 AM ELECTRONICS ENGINEER Elias Fenton MD LAB BLOOD ORDERABLES Fi nal Result Performing Organization Address [facility] Co de Phone Number [address] [place] [address] * (ABNORMAL) Comprehensive metabolic panel (04/15/2024 2:50 AM ELECTRONICS ENGINEER) [facility] Sodium 132(L) 135 - 145 mmol/L Potassium, pl 3.9 3.3 - 4.9 mmol/L [facility] Chloride 102 97 - 110 mmol/L [facility] CO2 22 22 - 32 mmol/L [facility] Anion gap 8 2 - 15 mmol/L [facility] BUN 32(H) 6 - 25 mg/dL [facility] Creatinine 3.27(H) 0.80 - 1.30 mg/dL [facility] Glucose 106 70 - 199 mg/dL [facility] Comment: Interpretive Data Fasting glucose >/= [...] 2022. Calcium 7.9(L) 8.5 - 10.3 mg/dL [facility] Bilirubin, total 0.6 0.1 - 1.2 mg/dL [facility] Protein, pl 6.4(L) 6.5 - 8.5 g/dL [facility] Albumin 3.0(L) 3.5 - 5.0 g/dL [facility] Alk phos 71 40 - 130 Units/L [facility] ALT 33 7 - 55 Units/L [facility] AST 30 10 - 50 Units/L [facility] Blood 04/15/2024 2:50 AM ELECTRONICS ENGINEER 04/15/2024 3:31 AM ELECTRONICS ENGINEER Darryn Childress MD LAB BLOOD ORDERABLES Final Result Performing Organization Address [facility] Co de Phone Number [address] [place] [address] * POCT glucose (04/14/2024 4:29 PM ELECTRONICS ENGINEER) [facility] Glucose, POC 118 70 - 199 mg/dL Blood 04/14/2024 4:29 PM ELECTRONICS ENGINEER 04/14/2024 4:29 PM ELECTRONICS ENGINEER us Darryn Childress MD LAB POCT ORDERABLES - DEVICE Final Result Performing Organization Address [facility] Co de Phone Number [address] [place] [address] * (ABNORMAL) Troponin T high-sensitivity 6-hour (04/14/2024 3:49 PM ELECTRONICS ENGINEER) Trop T hs 58(H) <=22 ng/L Comment: Interpretive Data For further hscTnT resources including the diagnostic algorithm and an aid in interpretation, copy and paste this link: https://nrl.testcatalog.org/show/hsTrop Current Interpretive Data last revised 2020. Trop T hs delta 4 ng/L [facility] Trop T hs interp Insignificant [facility]VI Blood 04/14/2024 3:49 PM ELECTRONICS ENGINEER 04/14/2024 3:53 PM ELECTRONICS ENGINEER us Simon Vera MD LAB BLOOD ORDERABLE S Final Result [facility] [address] [facility] Department [place] [address] * NM Pulmonary Perfusion Imaging (04/14/2024 2:28 PM ELECTRONICS ENGINEER) Anatomical Region Laterality Modality Body N/A Nuclear Medicine 04/14/2024 2:44 PM ELECTRONICS ENGINEER Narrative 04/14/2024 2:44 PM ELECTRONICS ENGINEER EXAM DESCRIPTION: ?? NM PULMONARY PERFUSION IMAGING [...] - Electronically signed by ??Jaskaran Tobin M.D. CH D: ??04/14/2024 2:44 PM T: Report ID: [id number] Reading Location: ??[id number] Procedure Note Jaskaran Tobin Jr., MD - [...] by Jaskaran Tobin M.D. T: Report ID: [id number] Reading Location: [id number] Simon Vera MD [facility] PROCEDURES F inal Result * (ABNORMAL) Troponin T high-sensitivity 2-hour (04/14/2024 11:32 AM ELECTRONICS ENGINEER) Trop T hs 58(H) <=22 ng/L Comment: Interpretive Data For further hscTnT resources including the diagnostic algorithm and an aid in interpretation, copy and paste this link: https://nrl.testcatalog.org/show/hsTrop Current Interpretive Data last revised 2020. Trop T hs delta 4 ng/L [facility] SNIDER Trop T hs interp Insignificant [facility] SNIDER Blood 04/14/2024 11:3 2 AM ELECTRONICS ENGINEER 04/14/2024 11:34 AM ELECTRONICS ENGINEER us Simon Vera MD LAB BLOOD ORDERABLE S Final Result [facility] [facility] Department [place] [address] * (ABNORMAL) Troponin T high-sensitivity series (baseline, 2hr, 4hr, 6hr) (04/14/2024 9:23 AM ELECTRONICS ENGINEER) Trop T hs 54(H) <=22 ng/L Comment: Interpretive Data For further hscTnT resources including the diagnostic algorithm and an aid in interpretation, copy and paste this link: https://nrl.testcatalog.org/show/hsTrop Current Interpretive Data last revised 2020. Blood 04/14/2024 9:23 AM ELECTRONICS ENGINEER 04/14/2024 9:26 AM ELECTRONICS ENGINEER us Simon Vera MD LAB BLOOD ORDERABLE S Final Result [facility] [address] [facility] Department [place] [address] * (ABNORMAL) eGFR (04/14/2024 9:23 AM ELECTRONICS ENGINEER) eGFR 22(L) >=60 mL/min/1. 73 m2 Comment: [...] last reviewed 2021. Blood 04/14/2024 9:23 AM ELECTRONICS ENGINEER 04/14/2024 9:26 AM ELECTRONICS ENGINEER us Simon Vera MD LAB BLOOD ORDERABLE S Final Result [facility] [address] [facility] Department [place] [address] * Differential, auto (04/14/2024 9:23 AM ELECTRONICS ENGINEER) Neutrophil abs 3.9 1.5 - 6.5 K/cumm Imm gran abs 0.0 0.0 - 0.1 K/cumm [facility] Lymphocyte abs 1.0 0.8 - 3.3 K/cumm [facility] Monocyte abs 0.5 0.2 - 0.8 K/cumm [facility] Eosinophil abs 0.0 0.0 - 0.5 K/cumm [facility] Basophil abs 0.0 0.0 - 0.1 K/cumm [facility] Neutrophil pct 70.9 % [facility] Comment: Interpretive Data Percent cell count reference ranges are not reported, since discordance with absolute values may lead to misinterpretation of CBC data. Current Interpretive Data was last revised on 2017. Imm gran pct 0.4 % [facility] Comment: Interpretive Data Percent cell count reference ranges are not reported, since discordance with absolute values may lead to misinterpretation of CBC data. Current Interpretive Data was last revised on 2017. Lymphocyte pct 18.4 % [facility] Comment: Interpretive Data Percent cell count reference ranges are not reported, since discordance with absolute values may lead to misinterpretation of CBC data. Current Interpretive Data was last revised on 2017. Monocyte pct 8.9 % [facility] Comment: Interpretive Data Percent cell count reference ranges are not reported, since discordance with absolute values may lead to misinterpretation of CBC data. Current Interpretive Data was last revised on 2017. Eosinophil pct 0.7 % [facility] Comment: Interpretive Data Percent cell count reference ranges are not reported, since discordance with absolute values may lead to misinterpretation of CBC data. Current Interpretive Data was last revised on 2017. Basophil pct 0.7 % [facility] Comment: Interpretive Data Percent cell count reference ranges are not reported, since discordance with absolute values may lead to misinterpretation of CBC data. Current Interpretive Data was last revised on 2017. Blood 04/14/2024 9:23 AM ELECTRONICS ENGINEER 04/14/2024 9:26 AM ELECTRONICS ENGINEER us Simon Vera MD LAB BLOOD ORDERABLE S Final Result Performing Organization Address City/State/ZIP Co ks Phone Number [facility]Q [address] [facility] Department [place] [address] * (ABNORMAL) Pro B-type natriuretic peptide (04/14/2024 9:23 AM ELECTRONICS ENGINEER) NT-proBNP 6,724(H) <=300 pg/mL Comment: Interpretive Comments: [...] Heart J. 2006:27:330-337. 2. Gisela RW, Devin GRIGSBY. J. AM Nancy Cardiol: Cardiovasc Imag. 2009;2: 216- 225. Interpretive Data Last Revised Date: 2018. Blood 04/14/2024 9:23 AM ELECTRONICS ENGINEER 04/14/2024 9:26 AM ELECTRONICS ENGINEER us Simon Vera MD LAB BLOOD ORDERABLE S Final Result [facility] [address] [facility] Department [place] [address] * (ABNORMAL) CBC with auto differential (04/14/2024 9:23 AM ELECTRONICS ENGINEER) WBC 5.5 3.8 - 9.9 K/cumm Hgb 12.9(L) 13.0 - 17.5 g/dL [facility] Hct 41.6 38.9 - 50.3 % [facility] Plt 240 150 - 400 K/cumm [facility] MPV 9.9 9.1 - 12.3 fL [facility] RBC 5.09 4.30 - 5.80 M/cumm [facility] MCV 81.7 81.3 - 96.4 fL [facility] MCH 25.3(L) 27.1 - 33.3 pg [facility] MCHC 31.0(L) 32.3 - 35.7 g/dL [facility] RDW CV 17.4(H) 11.1 - 14.9 % [facility] RDW SD 51.0(H) 35.7 - 48.1 fL [facility] NRBC abs 0.00 0.00 - 0.01 K/cumm [facility] Blood 04/14/2024 9:23 AM ELECTRONICS ENGINEER 04/14/2024 9:26 AM ELECTRONICS ENGINEER us Simon Vera MD LAB BLOOD ORDERABLE S Final Result [facility] [address] [facility] Department [place] [address] * (ABNORMAL) Comprehensive metabolic panel (04/14/2024 9:23 AM ELECTRONICS ENGINEER) Sodium 132(L) 135 - 145 mmol/L Potassium, pl 4.6 3.3 - 4.9 mmol/L [facility] Comment:Hemolyzed; Potassium value may be falsely elevated by as much as 1.0 mmol/L. Suggest redraw and reanalysis. Chloride 101 97 - 110 mmol/L [facility] CO2 17(L) 22 - 32 mmol/L [facility] Anion gap 14 2 - 15 mmol/L [facility] BUN 30(H) 6 - 25 mg/dL [facility] Creatinine 3.44(H) 0.80 - 1.30 mg/dL [facility] Glucose 111 70 - 199 mg/dL [facility] Comment: Interpretive Data Fasting glucose >/= [...] 2022. Calcium 9.0 8.5 - 10.3 mg/dL [facility] Bilirubin, total 0.9 0.1 - 1.2 mg/dL [facility] Protein, pl 7.7 6.5 - 8.5 g/dL [facility] Albumin 3.4(L) 3.5 - 5.0 g/dL [facility] Alk phos 80 40 - 130 Units/L [facility] ALT 47 7 - 55 Units/L [facility] AST 58(H) 10 - 50 Units/L [facility] Comment:Hemolyzed; result ma y be falsely elevated Blood 04/14/2024 9:23 AM ELECTRONICS ENGINEER 04/14/2024 9:26 AM ELECTRONICS ENGINEER us Simon Vear MD LAB BLOOD ORDERABLE S Final Result [facility] [address] [facility] Department [place] [address] * XR Chest 1 Vw Portable (if patient condition/safety warrant portable) (04/14/2024 9:20 AM ELECTRONICS ENGINEER) Anatomical Region Laterality Modality Body, Chest N/A Computed Radiogr aphy 04/14/2024 9:23 AM ELECTRONICS ENGINEER Narrative 04/14/2024 9:25 AM ELECTRONICS ENGINEER EXAM DESCRIPTION: XR CHEST 1 VIEW REASON [...] AM - Electronically signed by ??Toni Morgan M.D. MM D: ??04/14/2024 9:25 AM T: Report ID: [id number] Reading Location: ??[id number] Procedure Note Toni Morgan MD - 04/14/2024 [...] Toni Morgan M.D. MM T: Report ID: [id number] Reading Location: [place] [address] Simon Vera MD IMG XR PROCEDURES F inal Result * (ABNORMAL) Influenza A/B, RSV, and COVID-19 PCR Nasopharyngeal (04/14/2024 9:10 AM ELECTRONICS ENGINEER) COVID-19 RNA Negative Negative Influenza A RNA Negative Negative [facility] Influenza B RNA Negative Negative [facility] RSV RNA Positive(A) Negative [facility] Comment: Interpretive data: Testing performed by [facility]. This test is performed using the Aframe Xpert Xpress CoV-2/Flu/RSV plus assay. This is a multiplex, real-time reverse transcriptase PCR assay intended for the qualitative detection of nucleic acid from SARS-CoV-2, influenza A, influenza B, and respiratory syncytial virus. This assay has been cleared by the [place] Food and Drug administration. The performance characteristics have been verified by the [facility]. ??Results must be considered in the clinical context, and a negative result does not rule out infection. Interpretive Data last revised 2023 Nasopharyngeal 04/14/2024 9: 10 AM ELECTRONICS ENGINEER 04/14/2024 9:26 AM ELECTRONICS ENGINEER Narrative [facility] - 04/14/2024 10:33 AM ELECTRONICS ENGINEER Is the Patient experiencing symptoms consistent with COVID?->Yes Simon Vera MD LAB MICROBIOLOGY - GENERAL ORDERABLES Final Result Performing Organization Address City/[facility]/ZIP Co de Phone Number [facility] [address] [facility] [place] [address] * ECG 12 lead (04/14/2024 8:58 AM ELECTRONICS ENGINEER) Ventricular Rate EKG/Min 107 BPM [facility] Atrial Rate 107 BPM [facility] CO-Interval (MSEC) 170 ms [facility] QRS-Interval (MSEC) 102 ms [facility] QT-Interval (MSEC) 382 ms [facility] QTc 509 ms [facility] P [place] 37 degrees [facility] R [place] -73 degrees [facility] T [place] 86 degrees [facility] Diagnosis Sinus tachycardia Biatrial enlargement Left axis deviation 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 ([id number]) on 04/15/2024 3:10:50 AM [facility] 04/14/2024 8:58 AM ELECTRONICS ENGINEER 04/15/2024 3:10 AM ELECTRONICS ENGINEER us Simonethan Vera MD ECG ORDERABLES Fin al Result Performing Organization Address City/[facility] Co de Phone Number [facility] from Last 3 Months Advance Directives For more information, please contact: [phone] * Full Code (Latest Code Status on [...] 4:54 AM 11/21/2023 7:57 PM Care Teams Mud Analysis Well Logging Captain Relationship Specialty Start Date End Date Vicente Dikcens MD [address] [place] [id number] PCP - General Family Practice 12/19/21 Arley Orona MD [address] [place] [address] [place] [id number] Consulting Physician Nephrology 05/09/24
--- OUTSIDE RECORDS SUMMARY | 2024-06-29 16:13 | XMS_ITS | Patient Health Summary ---
Demographics Address [address] [place] [address] Home Phone Mobile Phone Email Address [employer] Results Scorecard Preferred Language Swedish Marital Status Single Jehovah'S Witness Affiliation Unknown Race Black or Bella rican Ethnic Group Not or Lati no Author Organization [facility] Address [address] [place] [address] Care Team Providers Care Cancer Genetics Assistant Name Role Phone Ran Arias MD Primary Care Provider [phone] Note from [facility] [place],non-owned Affiliates and Associated Physician Practices is amultiple site organization consisting of ambulatory clinics and hospital sitesin [place], [place], [place] and [place]. This disclosure is being madepursuant to the Care Everywhere program and may not contain all information available regarding this patient. Last updated 18.[facility] Allergies No known active allergies Medications * Be aware that medications may not be up to date on this document. Alwaysverify current medications with the patient. * oxyCODONE, immediate release, (ROXICODONE) 5 MG tablet(Started 12/12/2020) Take 1 (one) tablet by mouth every 6 hours as needed for Pain * folic acid (FOLVITE) 1 MG tablet(Started 12/13/2020) Take 1 (one) tablet by mouth once daily * methocarbamol (ROBAXIN) 750 MG tablet(Started 12/12/2020) Take 1 (one) tablet by mouth every 6 hours as needed for Muscle Spasms * thiamine (VITAMIN B-1) 100 MG tablet(Started 12/13/2020) Take 1 (one) tablet by mouth once daily * docusate sodium (COLACE) 100 MG capsule(Started 12/12/2020) Take 1 (one) capsule by mouth 2 times daily 2 refills by 12/12/2021 * hydroCHLOROthiazide (HYDRODIURIL) 25 MG tablet(Started 12/28/2020) Take 1 (one) tablet by mouth once daily 4 refills by 12/28/2021 * amLODIPine (NORVASC) 10 MG tablet(Started 12/28/2020) Take 1 (one) tablet by mouth once daily 1 refill by 12/28/2021 Active Problems Problem Noted Date Diagnosed Date Hypertension 12/12/2020 SDH (subdural hematoma) 12/12/2020 Scalp laceration 12/12/2020 Trauma 12/10/2020 Alcohol intake above recommended sensible limits 12/10/2020 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 Immunizations * TDAP (7yrs+)(Given 12/10/2020) Social History Tobacco Use Types Packs/Day Years [...] Mass Index 31.38 01/04/2021 11:36 AM CDT Procedures * APHERESIS/TRANSFUSION ORDER(Performed 12/26/2020) * CARDIAC EKG ORDER(Performed 12/12/2020) * BASIC METABOLIC PANEL (CALCIUM TOTAL)(Performed 12/12/2020) * CALCIUM IONIZED WHOLE BLOOD(Performed 12/12/2020) * PHOSPHORUS BLOOD(Performed 12/12/2020) * MAGNESIUM BLOOD(Performed 12/12/2020) * CBC W AUTO DIFFERENTIAL(Performed 12/12/2020) * OSMOLALITY BLOOD(Performed 12/11/2020) * BASIC METABOLIC PANEL (CALCIUM TOTAL)(Performed 12/11/2020) * OSMOLALITY BLOOD(Performed 12/11/2020) * BASIC METABOLIC PANEL (CALCIUM TOTAL)(Performed 12/11/2020) * OSMOLALITY BLOOD(Performed 12/11/2020) * BASIC METABOLIC PANEL (CALCIUM TOTAL)(Performed 12/11/2020) * OSMOLALITY BLOOD(Performed 12/10/2020) * BASIC METABOLIC PANEL (CALCIUM TOTAL)(Performed 12/10/2020) * CALCIUM IONIZED WHOLE BLOOD(Performed 12/10/2020) * PHOSPHORUS BLOOD(Performed 12/10/2020) * MAGNESIUM BLOOD(Performed 12/10/2020) * CBC W AUTO DIFFERENTIAL(Performed 12/10/2020) * OSMOLALITY BLOOD(Performed 12/10/2020) * BASIC METABOLIC PANEL (CALCIUM TOTAL)(Performed 12/10/2020) * XR SHOULDER LEFT 2VW OR MORE(Performed 12/10/2020) Performed for Focal hemorrhagic contusion of cerebrum (HCC) * XR SHOULDER RIGHT 2VW OR MORE(Performed 12/10/2020) Performed for Focal hemorrhagic contusion of cerebrum (HCC) * CT HEAD WO CONTRAST(Performed 12/10/2020) Performed for Trauma * BLOOD TYPE VERIFICATION(Performed 12/10/2020) * OSMOLALITY BLOOD(Performed 12/10/2020) * BASIC METABOLIC PANEL (CALCIUM TOTAL)(Performed 12/10/2020) * SARS-COV-2 (COVID-19)+INFLU A+B PCR RAPID(Performed 12/10/2020) * BASIC METABOLIC PANEL (CALCIUM TOTAL)(Performed 12/10/2020) * PREPARE RBC LEUKOREDUCED UNIT(Performed 12/10/2020) * PREPARE WHOLE BLOOD UNIT(S)(Performed 12/10/2020) * EKG 12-LEAD(Performed 12/10/2020) Performed for Trauma * TYPE + SCREEN PANEL(Performed 12/10/2020) * URINE DRUG SCREEN IMMUNOASSAY(Performed 12/10/2020) * PTT [facility](Performed 12/10/2020) * PT-INR [facility](Performed 12/10/2020) * LIPASE BLOOD(Performed 12/10/2020) * CBC W AUTO DIFFERENTIAL(Performed 12/10/2020) * ALCOHOL ETHYL BLOOD(Performed 12/10/2020) * CT LUMBAR SPINE WO CONTRAST(Performed 12/10/2020) Performed for Trauma * CT THORACIC SPINE WO CONTRAST(Performed 12/10/2020) Performed for Trauma * CT CHEST ABDOMEN PELVIS W CONT(Performed 12/10/2020) Performed for Trauma * CT CERVICAL SPINE WO CONTRAST(Performed 12/10/2020) Performed for Trauma * CT FACIAL BONES WO CONTRAST(Performed 12/10/2020) Performed for Trauma * CT HEAD WO CONTRAST(Performed 12/10/2020) Performed for Trauma * XR ANKLE LEFT 3VW OR MORE(Performed 12/10/2020) Performed for Trauma * XR FOOT RIGHT 3VW OR MORE(Performed 12/10/2020) Performed for Trauma * XR FOOT LEFT 3VW OR MORE(Performed 12/10/2020) Performed for Trauma * XR PELVIS 1 OR 2VW(Performed 12/10/2020) Performed for Trauma * XR CHEST 1VW PORTABLE(Performed 12/10/2020) Performed for Trauma Results * APHERESIS/TRANSFUSION ORDER (12/26/2020 3:35 PM CDT) Narrative 12/26/2020 3:35 PM CDT Ordered by an unspecified provider. Scanned Document NURSING - VITAL SIGN S AND ASSESSMENT * CARDIAC EKG ORDER (12/12/2020 7:32 AM CDT) Narrative 12/12/2020 7:32 AM CDT Ordered by an unspecified provider. Scanned Document CARDIAC SERVICES ORD ERABLES * (ABNORMAL) CALCIUM IONIZED WHOLE BLOOD (12/12/2020 12:21 AM CDT) Only the most recent of2 resultswithin the time period is included. Calcium Ionized 1.14 mmol/L 12/12/2020 12:33 AM CDT [facility] pH 7.40 7.35 - 7.45 pH 12/12/2020 12:33 AM CDT [facility] Ionized Calcium pH Adjusted 1.14(L) 1.19 - 1.34 mmol/L 12/12/2020 12:33 AM CDT [facility] Blood WHOLE BLOOD SPECIMEN / Unknown Venipuncture / Unknown 12/12/2020 12:21 AM CDT 12/12/2020 12:31 AM CDT Ying oSto MD LAB - CHEMISTRY ORDERABLES [facility] [address] [place] [address], [facility] [phone] * (ABNORMAL) CBC W AUTO DIFFERENTIAL (12/12/2020 12:21 AM CDT) Only the most recent of3 resultswithin the time period is included. WBC 11.7(H) 3.5 - 10.5 10? 3 /uL 12/12/2020 12:38 AM [facility] RBC 4.14(L) 4.30 - 5.70 10? 6 /uL 12/12/2020 12:38 AM [facility] Hemoglobin 12.1 12.0 - 17.6 g/dL 12/12/2020 12:38 AM [facility] Hematocrit 36.4 35.2 - 51.7 % 12/12/2020 12:38 AM [facility] MCV 87.9 80.7 - 98.3 fL 12/12/2020 12:38 AM [facility] MCH 29.2 26.7 - 34.0 pg 12/12/2020 12:38 AM [facility] MCHC 33.2 30.8 - 35.9 g/dL 12/12/2020 12:38 AM [facility] Platelet Count 211 150 - 400 10? 3 /uL 12/12/2020 12:38 AM [facility] RDW-SD 42.7 36.0 - 50.0 fL 12/12/2020 12:38 AM [facility] RDW-CV 13.2 11.2 - 14.8 % 12/12/2020 12:38 AM [facility] MPV 9.8 9.4 - 12.9 fL 12/12/2020 12:38 AM [facility] nRBC Absolute 0.00 0 10? 3 /uL 12/12/2020 12:38 AM [facility] nRBC Auto 0.0 0 /100 WBC 12/12/2020 12:38 AM [facility] Neutrophils % 78.1(H) 35.0 - 70.0 % 12/12/2020 12:38 AM [facility] Lymphocytes % 12.8(L) 20.0 - 43.0 % 12/12/2020 12:38 AM [facility] Monocytes % 8.3 5.0 - 13.0 % 12/12/2020 12:38 AM [facility] Eosinophils % 0.2 0.0 - 6.0 % 12/12/2020 12:38 AM [facility] Basophil % 0.2 0.0 - 2.0 % 12/12/2020 12:38 AM [facility] Neutrophils Absolute 9.1(H) 1.6 - 7.0 10? 3 /uL 12/12/2020 12:38 AM [facility] Lymphocyte Absolute 1.5 1.1 - 3.9 10? 3 /uL 12/12/2020 12:38 AM [facility] Monocytes Absolute 0.97 0.26 - 1.07 10? 3 /uL 12/12/2020 12:38 AM [facility] Eosinophils Absolute 0.02 0.00 - 0.47 10? 3 /uL 12/12/2020 12:38 AM [facility] Basophils Absolute 0.02 0.00 - 0.08 10? 3 /uL 12/12/2020 12:38 AM [facility] Immature Granulocytes % 0.4 0.0 - 1.0 % 12/12/2020 12:38 AM [facility] Immature Granulocytes Absolute 0.05 12/12/2020 12:38 AM [facility] Blood BLOOD SPECIMEN / Unknown Venipuncture / Unknown 12/12/2020 12:21 AM CDT 12/12/2020 12:33 AM T Ying Soto MD LAB - HEMATOLOG Y ORDERABLES Performing Organization Address City/State/[facility] Co de Phone Number [facility] [address] [place] [phone], [facility] [phone] * (ABNORMAL) BASIC METABOLIC PANEL (CALCIUM TOTAL) (12/12/2020 12:21 AM CDT) Only the most recent of8 resultswithin the time period is included. BUN 10 7 - 26 mg/dL 12/12/2020 1:01 AM [facility] Creatinine 1.31(H) 0.71 - 1.16 mg/dL 12/12/2020 1:01 AM [facility] Sodium 137 136 - 145 mmol/L 12/12/2020 1:01 AM [facility] Potassium 3.8 3.5 - 4.5 mmol/L 12/12/2020 1:01 AM [facility] Chloride 105 98 - 107 mmol/L 12/12/2020 1:01 AM [facility] CO2 27 22 - 29 mmol/L 12/12/2020 1:01 AM [facility] Glucose 117(H) 70 - 115 mg/dL 12/12/2020 1:01 AM [facility] Calcium 8.7 8.4 - 10.2 mg/dL 12/12/2020 1:01 AM [facility] Anion Gap 9 8 - 18 12/12/2020 1:01 AM [facility] BUN/Creatinine Ratio 8 7 - 23 12/12/2020 1:01 AM [facility] Osmolality Calculated 284 270 - 300 mOsm/kg 12/12/2020 1:01 AM [facility] eGFR by CKD-EPI 70(L) >=90 mL/min/1.7 3 m2 12/12/2020 1:01 AM [facility] Blood BLOOD SPECIMEN / Unknown Venipuncture / Unknown 12/12/2020 12:21 AM CDT 12/12/2020 12:33 AM CDT Ying Soto MD LAB - CHEMISTRY ORDERABLES [facility] [address] [place] [address], [facility] [phone] * (ABNORMAL) PHOSPHORUS BLOOD (12/12/2020 12:21 AM CDT) Only the most recent of2 resultswithin the time period is included. Phosphorus 2.4(L) 2.8 - 5.1 mg/dL 12/12/2020 1:01 AM CDT [facility] Blood BLOOD SPECIMEN / Unknown Venipuncture / Unknown 12/12/2020 12:21 AM CDT 12/12/2020 12:33 AM CDT Ying Soto MD LAB - CHEMISTRY ORDERABLES [address] [address], [place] [phone] * MAGNESIUM BLOOD (12/12/2020 12:21 AM CDT) Only the most recent of2 resultswithin the time period is included. Magnesium 1.9 1.6 - 2.6 mg/dL 12/12/2020 1:01 AM CDT [facility] Blood BLOOD SPECIMEN / Unknown Venipuncture / Unknown 12/12/2020 12:21 AM CDT 12/12/2020 12:33 AM CDT Ying Soto MD LAB - CHEMISTRY ORDERABLES Performing Organization Address City/[facility]/ZIP Co de Phone Number [address] [address], [place] [phone] * OSMOLALITY BLOOD (12/11/2020 6:35 PM CDT) Only the most recent of6 resultswithin the time period is included. Osmolality 289 270 - 300 mOsm/kg 12/11/2020 8:15 PM CDT [facility] Blood BLOOD SPECIMEN / Unknown Venipuncture / Unknown 12/11/2020 6:35 PM CDT 12/11/2020 6:44 PM CDT Ying Soto MD LAB - CHEMISTRY ORDERABLES [address] [address] [phone] * XR SHOULDER LEFT 2VW OR MORE (12/10/2020 5:03 PM CDT) Anatomical Region Laterality Modality Upper Extremity Radiographic Maria Teresa ging 12/10/2020 4:46 PM CDT Impressions 12/11/2020 12:56 PM CDT IMPRESSION: No acute fracture or dislocation identified. Dictated by Esthela Leary MD (radiology assistant). Dr. BECCA Barahona have personally reviewed and interpreted this examination/study. This report was electronically signed by BECCA LYNN ??on 12/11/2020 12:56 PM . Narrative 12/11/2020 12:56 PM CDT EXAMINATION: XR SHOULDER LEFT 2VW OR MORE HISTORY: S06.339A: Focal hemorrhagic contusion of cerebrum COMPARISON: No prior study is available for comparison. FINDINGS: The osseous structures are intact without acute fracture. The glenohumeral and acromioclavicular joints are in anatomic alignment. ? Bone density and texture are normal. Procedure Note Becca Lynn DO - 12/11/2020 EXAMINATION: XR SHOULDER LEFT 2VW OR MORE HISTORY: S06.339A: Focal hemorrhagic contusion of cerebrum COMPARISON: No prior study is available for comparison. FINDINGS: The osseous structures are intact without acute fracture. Theglenohumeral and acromioclavicular joints are in anatomic alignment. Bone density and texture are normal. IMPRESSION: No acute fracture or dislocation identified. Dictated by Esthela Leary MD (radiology assistant). Dr. BECCA Barahona have personally reviewed and interpreted this examination/study. This report was electronically signed by BECCA LYNN on 12/11/2020 12:56 PM . Ying Soto MD DIAGNOSTIC IMAG ING ORDERABLES * XR SHOULDER RIGHT 2VW OR MORE (12/10/2020 5:02 PM CDT) Anatomical Region Laterality Modality Upper Extremity Radiographic Maria Teresa ging 12/10/2020 4:54 PM CDT Impressions 12/11/2020 12:56 PM CDT IMPRESSION: No acute fracture or dislocation identified. Dictated by Esthela Leary MD (radiology assistant). Dr. BECCA Barahona have personally reviewed and interpreted this examination/study. This report was electronically signed by BECCA LYNN ??on 12/11/2020 12:56 PM . Narrative 12/11/2020 12:56 PM CDT EXAMINATION: XR SHOULDER RIGHT 2VW OR MORE HISTORY: S06.339A: Focal hemorrhagic contusion of cerebrum COMPARISON: No prior study is available for comparison. FINDINGS: The osseous structures are intact without acute fracture. The glenohumeral and acromioclavicular joints are in anatomic alignment. ? Bone density and texture are normal. The visible lung appears normal. Procedure Note tuyetBecca conley Gladys, DO - 12/11/2020 EXAMINATION: XR SHOULDER RIGHT 2VW OR MORE HISTORY: S06.339A: Focal hemorrhagic contusion of cerebrum COMPARISON: No prior study is available for comparison. FINDINGS: The osseous structures are intact without acute fracture. Theglenohumeral and acromioclavicular joints are in anatomic alignment. Bone density and texture are normal. The visible lung appears normal. IMPRESSION: No acute fracture or dislocation identified. Dictated by Esthela Leary MD (radiology assistant). Dr. BECCA Barahona have personally reviewed and interpreted this examination/study. This report was electronically signed by BECCA LYNN on 12/11/2020 12:56 PM . Ying Soto MD DIAGNOSTIC IMAG ING ORDERABLES * CT HEAD WO CONTRAST (12/10/2020 2:06 PM CDT) Only the most recent of2 resultswithin the time period is included. Anatomical Region Laterality Modality Head Computed Tomogra phy 12/10/2020 2:07 PM CDT Impressions 12/11/2020 7:52 AM CDT IMPRESSION: 1.Unchanged 0.9 x 0.5 cm area of hyperdensity within the right inferior frontal lobe with suspected minimal adjacent vasogenic edema compatible with hemorrhagic contusion. 2.Stable 0.6 x 0.6 cm area of hyperdensity within the left inferior frontal lobe with suspected minimal adjacent vasogenic edema compatible with hemorrhagic contusion. 3.Resolved parafalcine subdural hemorrhage. 4.Persistent effacement of cerebral sulci at the vertex probably representing some residual edema. Dictated by Esthela Leary MD (radiology assistant). I, Dr. SAJI ZHANG have personally reviewed and interpreted this examination/study. This report was electronically signed by SAJI ZHANG ??on 12/11/2020 7:52 AM . Narrative 12/11/2020 7:[address] HEAD WO CONTRAST EXAMINATION: 1.Computed tomography (CT) of the head without contrast DATE: 12/10/2020 2:06 PM HISTORY: T14.90XA: Trauma TECHNIQUE: CT of the head was performed without contrast according to standard protocol. COMPARISON: CT head dated 12/10/2020 at 3:39 AM FINDINGS: There is an unchanged 0.9 x 0.5 cm area of hyperdensity within the right inferior frontal lobe with suspected minimal adjacent vasogenic edema compatible with a small hemorrhagic contusion. There is another 0.6 x 0.6 cm area of hyperdensity within the left inferior frontal lobe with suspected minimal adjacent ??vasogenic edema compatible with a small hemorrhagic contusion. Interval resolution of previously seen thickening and hyperdensity of the posterior falx, representing a resolved small volume subdural hemorrhage. The ventricles are nondilated. Persistent effacement of cerebral sulci at the vertex probably representing mild persistent cerebral edema. The basilar cisterns are patent. No significant midline shift is seen. The reese-white matter differentiation otherwise appears normal. The orbits appear normal. There is mild paranasal sinus disease. There are numerous dental caries and periapical lucencies/periapical abscesses. No acute facial bone fractures are identified. The mastoid air cells are clear. There is large right posterior scalp soft tissue hematoma/laceration, status post placement of multiple skin mervin. Procedure Note Saji Zhang MD - 12/11/2020 CT HEAD WO CONTRAST EXAMINATION: 1.Computed tomography (CT) of the head without contrast DATE: 12/10/2020 2:06 PM HISTORY: T14.90XA: Trauma TECHNIQUE: CT of the head was performed without contrast according to standard protocol. COMPARISON: CT head dated 12/10/2020 at 3:39 AM FINDINGS: There is an unchanged 0.9 x 0.5 cm area of hyperdensity within the right inferior frontal lobe with suspected minimal adjacent vasogenic edema compatible with a small hemorrhagic contusion. There is another 0.6 x0.6 cm area of hyperdensity within the left inferior frontal lobe with suspected minimal adjacent vasogenic edema compatible with a small hemorrhagic contusion. Interval resolution of previously seen thickening and hyperdensity ofthe posterior falx, representing a resolved small volume subduralhemorrhage. The ventricles are nondilated. Persistent effacement of cerebral sulciat the vertex probably representing mild persistent cerebral edema. The basilar cisterns are patent. No significant midline shift is seen. The reese-white matter differentiation otherwise appears normal. The orbits appear normal. There is mild paranasal sinus disease. Thereare numerous dental caries and periapical lucencies/periapical abscesses. No acute facial bone fractures are identified. The mastoid air cells are clear. There is large right posterior scalp soft tissue hematoma/laceration, status post placement of multiple skin mervin. IMPRESSION: 1.Unchanged 0.9 x 0.5 cm area of hyperdensity within the right inferior frontal lobe with suspected minimal adjacent vasogenic edema compatible with hemorrhagic contusion. 2.Stable 0.6 x 0.6 cm area of hyperdensity within the left inferior frontal lobe with suspected minimal adjacent vasogenic edema compatible with hemorrhagic contusion. 3.Resolved parafalcine subdural hemorrhage. 4.Persistent effacement of cerebral sulci at the vertex probably representing some residual edema. Dictated by Esthela Leary MD (radiology assistant). I, Dr. SAJI ZHANG have personally reviewed and interpreted this examination/study. This report was electronically signed by SAJI ZHANG on 12/11/2020 7:[address] Ying Soto MD CT ORDERABLES * BLOOD TYPE VERIFICATION (12/10/2020 12:50 PM CDT) ABO Rh O POS 12/10/2020 1:1 7 PM CDT [facility] Blood Bank BLOOD SPECIMEN / Unknown Venipuncture / Unknown 12/10/2020 12:50 PM CDT 12/10/2020 12:56 PM CDT Chantel Zuh MD LAB - BLOOD BANK ORD ERABLES [facility] [address] [place] [address], [facility] [phone] * SARS-COV-2 (COVID-19)+INFLU A+B PCR RAPID (12/10/2020 8:02 AM CDT) COVID-19 PCR Not detected Not detected 12/11/19 8:46 AM CDT [facility] Influenza A Rapid SIVAKUMAR Not Detected Not Detected 12/10/2020 8:46 AM CDT [facility] Influenza B SIVAKUMAR Rapid Not Detected Not Detected 12/10/2020 8:46 AM CDT [facility] Microbiology SPECIMEN FROM NASOPHARYNGEAL STRUCTURE / Unknown Collection / Unknown 12/10/2020 8:02 AM CDT 12/10/2020 8:07 AM CDT Narrative [facility] - 12/10/2020 8:46 AM CDT Influenza assay performed by Nucleic Acid Amplification. Results do not exclude the possibility of a mixed viral infection. NOTE: ??Detecting and identifying specific viral nucleic acids from individuals exhibiting signs and symptoms of respiratory infection aids in the diagnosis of respiratory infection, if used in conjunction with other clinical and laboratory findings. The results of this test should not be used as the sole basis for diagnosis, treatment, or patient management decisions. This nucleic acid amplification assay performance was validated by [facility]. This test has been authorized by the Food and Drug administration (FDA)under an Emergency??Use Authorization (EUA). This test has been validated in accordance with the FDA's guidance document Policy for Diagnostic Testing in Laboratories Certified to perform High Complexity Testing under CLIA prior to Emergency Use Authorization for Coronavirus Disease-2019 during the Public Health Emergency issued on July 24, 2019. FDA independent review of this validation is pending. This test is only authorized for the duration of time the declaration that circumstances exist justifying the authorization of emergency use of in vitro diagnostic tests for detection of SARS-CoV-2 virus and/or diagnosis of COVID-19 infection under section 564(b)(1) of the Act, 21 U.S.C 360bbb-3 (b)(1), unless the authorization is terminated or revoked sooner. Fact Sheets for this EUA assay are available upon request. Emmanuel Sánchez MD LAB - MICROBIOLOGY O RDERABLES Performing Organization Address City/[facility]/ZIP Co de Phone Number [facility] [address] [place] [phone], [facility] [phone] * PREPARE (CROSSMATCH) RBC UNIT(S), 1 Units (12/10/2020 6:25 AM CDT) Unit Description AS1 LR PRBC [facility] Unit ABO O [facility] Unit Rh POS [facility] Product Number R02 [facility] Unit Donor # [id number] [facility] Unit Status released [facility] Product Code [id number] [facility] Blood Type Barcode 5100 [facility] Expiration Date S BLOOD BANK LAB Blood Bank BLOOD SPECIMEN / Unknown 12/10/2020 5:02 AM CDT Chantel Zhu MD LAB - BLOOD BANK ORD ERABLES Performing Organization Address [facility]/ZIP Co de Phone Number [facility] [address] [place] [phone], [facility] [phone] * 3 Units (12/10/2020 6:25 AM CDT) Unit Description LR Whole BLood [facility] Unit ABO O [facility] Unit Rh POS [facility] Product Number [id number] [facility] Unit Donor # [id number] [facility] Unit Status released [facility] Product Code [id number] [facility] Blood Type Barcode 5100 [facility] Expiration Date S BLOOD BANK LAB Unit Description LR Whole BLood [facility] Unit ABO O [facility] Unit Rh POS [facility] Product Number [id number] [facility] Unit Donor # [id number] [facility] Unit Status released [facility] Product Code [id number] [facility] Blood Type Barcode 5100 [facility] Expiration Date S BLOOD BANK LAB Unit Description LR Whole BLood [facility] Unit ABO O [facility] Unit Rh POS [facility] Product Number [id number] [facility] B LOOD BANK LAB Unit Donor # [id number] [facility] BLOOD BANK LAB Unit Status released [facility] BLOO D BANK LAB Product Code [id number] [facility] BLO OD BANK LAB Blood Type Barcode 5100 [facility] BLOOD BANK LAB Expiration Date S BLOOD BANK LAB Blood Bank BLOOD SPECIMEN / Unknown 12/10/2020 5:02 AM CDT Chantel Zhu MD LAB - BLOOD BANK ORD ERABLES Performing Organization Address City/[facility] Co de Phone Number [facility] BLOOD BANK LAB [address] [place] [address], [facility] [phone] * EKG 12-LEAD (12/10/2020 4:42 AM CDT) Pathologist [facility] Ventricular Rate 92 BPM [facility] MUSE Atrial Rate 92 BPM [facility] MUSE P-R Interval 164 ms [facility] MUSE QRS Duration ms 110 ms [facility] MUSE Q-T Interval ms 408 ms [facility] MUSE QTC Calculation (Bezet) 504 ms [facility] MUSE Calculated P [place] 42 degrees [facility] MUSE Calculated R [place] -78 degrees [facility] MUSE Calculated T [place] 129 degrees [facility] MUSE Interpretation EKG NORMAL SINUS RHYTHM LEFT ATRIAL ENLARGEMENT LEFT AXIS DEVIATION LEFT VENTRICULAR HYPERTROPHY ( Gallina product ) WITH REPOLARIZATION ABNORMALITY CANNOT RULE OUT SEPTAL INFARCT , AGE UNDETERMINED PROLONGED QT ABNORMAL ECG Confirmed by Kavon Henry ([id number]) on 12/11/2020 8:50:49 PM [facility] MUSE 12/10/2020 4:42 AM CDT 12/11/2020 8:50 PM CDT Ying Soto MD ECG ORDERABLES Performing Organization Address City/State/[facility] Co de Phone Number [facility] MUSE * PTT [facility] (12/10/2020 4:38 AM CDT) APTT 24.8 23.0 - 38.4 Seconds 12/10/2020 5:20 AM CDT [facility] Comment:Suggested therapeuti c range for full dose I.V. unfractionated heparin therapy for venous thromboembolism is 71 to 109 seconds. Blood BLOOD SPECIMEN / Unknown Venipuncture / Unknown 12/10/2020 4:38 AM CDT 12/10/2020 5:04 AM CDT Ying Soto MD LAB - COAGULATI ON ORDERABLES Performing Organization Address [facility] Co de Phone Number [address] [address], [place] [phone] * PT-INR [facility] (12/10/2020 4:38 AM CDT) Pathologist [facility] PT 14.1 12.1 - 14.8 Seconds 12/10/2020 5:20 AM CDT [facility] INR 1.1 See Comment 12/10/2020 5:20 AM CDT [facility] Comment:The suggested therap eutic range for standard coumadin (warfarin) therapy is an INR of 2.0-3.0. For high-risk patients (Mechanical Mitral Valve Prosthesis, etc.), the suggested prophylactic therapeutic range is an INR of 2.5-3.5. Blood BLOOD SPECIMEN / Unknown Venipuncture / Unknown 12/10/2020 4:38 AM CDT 12/10/2020 5:04 AM CDT Ying Soto MD LAB - COAGULATI ON ORDERABLES Performing Organization Address City/[facility]/ZIP Co de Phone Number [address] [address], [place] [phone] * TYPE + SCREEN PANEL (12/10/2020 4:38 AM CDT) Pathologist [facility] Antibody Screen NEG 5:43 AM CDT [facility] BLOOD BANK LAB ABO Rh O POS 12/10/2020 5:[address] [facility] BLOOD BANK LAB Blood Bank BLOOD SPECIMEN / Unknown Venipuncture / Unknown 12/10/2020 4:38 AM CDT 12/10/2020 5:02 AM CDT Ying Soto MD LAB - BLOOD BAN K ORDERABLES Performing Organization Address [facility] Co de Phone Number [facility] BLOOD BANK LAB [address] [place] [address], [facility] [phone] * (ABNORMAL) URINE DRUG SCREEN IMMUNOASSAY (12/10/2020 4:38 AM CDT) Pathologist [facility] Amphetamines Screen Urine Negative Negative : < 1000 ng/mL 12/10/2020 5:21 AM [facility] Barbiturates Screen Urine Negative Negative : < 200 ng/mL 12/10/2020 5:21 AM [facility] Benzodiazepine Screen Urine Positive(A) Negative : < 200 ng/mL 12/10/2020 5:21 AM [facility] Comment: Positive urine benzodiazepine screening results should be confirmed by another generally accepted non-immunological method such as gas chromatography or mass spectrometry. ? Opiates Urine Negative Negative : < 300 ng/mL 12/10/2020 5:21 AM [facility] Cocaine Metabolites Urine Negative Negative : < 300 ng/mL 12/10/2020 5:21 AM [facility] Phencyclidine Screen Urine Negative Negative : < 25 ng/ml 12/10/2020 5:21 AM [facility] Cannabinoids Screen Urine Positive(A) Negative : <50 ng/mL 12/10/2020 5:21 AM [facility] Comment:Positive urine canna binoids (THC) screening results should be confirmed by another generally accepted non-immunological method such as gas chromatography or mass spectrometry. Methadone Screen Urine Negative Negative : < 300 ng/mL 12/10/2020 5:21 AM [facility] Fentanyl Screen Urine Positive(A) Negative : <1.0 ng/mL 12/10/2020 5:21 AM CDT [facility] Comment:Positive urine fenta nyl screening results should be confirmed by another generally accepted non-immunological method such as gas chromatography or mass spectrometry. Urine URINE / Unknown Collection / Unknown 12/10/2020 4:38 AM CDT 12/10/2020 5:08 AM CDT Narrative [facility] - 12/10/2020 5:21 AM CDT The Urine Toxicology Screening Panel does not screen for Propoxyphene, Meprobamate, Carisoprodol, Trazodone, oizt-ywz-bqekbry medications and/or volatiles (Acetone, Isopropanol, Methanol or Ethylene Glycol). Ethanol, Salicylate, Acetaminophen, Tricyclic Antidepressants and several therapeutic drugs may be individually assayed in serum or plasma specimen. Toxicology testing by the [facility] is an aid to medical diagnosis and treatment of patients. No documented chain of custody was maintained. Results are intended to be used for clinical purposes only. ? Ying Soto MD LAB - URINE CLINTON DOMONIQUE ORDERABLES Performing Organization Address [facility]/State/[facility] Co de Phone Number [facility] [address] [place] [phone], [facility] [phone] * LIPASE BLOOD (12/10/2020 4:38 AM CDT) Lipase 30 8 - 78 U/L 12/10/2020 5:56 AM CDT [facility] Blood BLOOD SPECIMEN / Unknown Venipuncture / Unknown 12/10/2020 4:38 AM CDT 12/10/2020 5:05 AM CDT Ying Soto MD LAB - CHEMISTRY ORDERABLES Performing Organization Address [facility] Co de Phone Number [facility] [address] [place] [address], [facility] [phone] * (ABNORMAL) ALCOHOL ETHYL BLOOD (12/10/2020 4:38 AM CDT) Ethanol (mg/dL) 210(H) <10 mg/dL 5:55 AM CDT [facility] Ethanol Calculated (g/dL) 0.210(H) <0.010 g/dL 12/10/2020 5:55 AM CDT [facility] Blood BLOOD SPECIMEN / Unknown Venipuncture / Unknown 12/10/2020 4:38 AM CDT 12/10/2020 5:05 AM CDT Narrative [facility] - 12/10/2020 5:55 AM CDT Ethanol Interp <10: None Detected. Depression of FLAME BURNER: >100 mg/dl Potentially Critical: >250 mg/dl Potentially Fatal >400 mg/dl Ethanol in the patient's blood will contribute to the osmolar gap. Ethanol's contribution to the osmolar gap can be estimated by dividing the concentration of ethanol in mg/dL by 4.6. This test is for clinical use only and does not equal a YUAN for legal purposes. Ying Soto MD LAB - CHEMISTRY ORDERABLES Performing Organization Address City/[facility]/ZIP Co de Phone Number [facility] [address] [place] [address], [facility] [phone] * CT CHEST ABDOMEN PELVIS W CONT - Abdomen-pelvis trauma, blunt or penetrating (12/10/2020 4:34 AM CDT) Anatomical Region Laterality Modality Chest, Abdomen, Pelvis Computed Tomography 12/10/2020 4:33 AM CDT Impressions 12/10/2020 1:43 PM CDT Impression: 1.Significant patient motion artifact, within this limitation there is no visceral, vascular, or osseus injury the chest, abdomen, or pelvis. Report drafted by Hortencia Umaña (resident) Dr. [place] Barahona M.D. have personally reviewed and interpreted this examination/study. This report was electronically signed by [place] RITTER M.D. ??on 12/10/2020 1:43 PM . Narrative 12/10/2020 1:43 PM CDT Procedure Information DATE: 12/10/2020 4:35 AM EXAMINATION: Computed tomography (CT) of the chest, abdomen, and pelvis with contrast TECHNIQUE: CT of the chest, abdomen, and pelvis was performed after the uneventful administration of 100 mL of Isovue 370 intravenous contrast according to standard protocol. Clinical Information HISTORY: Trauma COMPARISON: None. Findings Significant patient motion limits this exam. Chest: Lines/Tubes: None. Lower neck and axillae: Normal. Mediastinum and Jennifer: No enlarged lymph nodes are present. Heart and Pericardium: The heart is mildly increased in size. No pericardial fluid or thickening is present. Lung Parenchyma, Airways, and Pleural Spaces: No pulmonary parenchymal or airway process is present. Minimal bibasilar atelectasis present. There is no pleural effusion or pneumothorax. Abdomen/pelvis: Hepatobiliary: The liver and gallbladder are normal. Pancreas: Normal. Spleen: Normal. Kidneys: Normal. Adrenals: Normal. Retroperitoneum/peritoneum/mesentery: There is no significant lymphadenopathy. No free air or free fluid is present. Gastrointestinal: The stomach and visualized loops of bowel are unremarkable. Pelvic Structures: The bladder is distended. The prostate is normal. No free pelvic fluid is present. Mildly prominent bilateral inguinal lymph nodes are present. Vasculature: Normal. Bones: The visible osseous structures are intact. Soft tissues: Normal. Procedure Note Glenny Ritter MD - 12/10/2020 Procedure Information DATE: 12/10/2020 4:35 AM EXAMINATION: Computed tomography (CT) of the chest, abdomen, and pelvis with contrast TECHNIQUE: CT of the chest, abdomen, and pelvis was performed after the uneventful administration of 100 mL of Isovue 370 intravenous contrast according to standard protocol. Clinical Information HISTORY: Trauma COMPARISON: None. Findings Significant patient motion limits this exam. Chest: Lines/Tubes: None. Lower neck and axillae: Normal. Mediastinum and Jennifer: No enlarged lymph nodes are present. Heart and Pericardium: The heart is mildly increased in size. No pericardial fluid orthickening is present. Lung Parenchyma, Airways, and Pleural Spaces: No pulmonary parenchymal or airway process is present. Minimal bibasilar atelectasis present. There is no pleural effusion or pneumothorax. Abdomen/pelvis: Hepatobiliary: The liver and gallbladder are normal. Pancreas: Normal. Spleen: Normal. Kidneys: Normal. Adrenals: Normal. Retroperitoneum/peritoneum/mesentery: There is no significant lymphadenopathy. No free air or free fluid is present. Gastrointestinal: The stomach and visualized loops of bowel are unremarkable. Pelvic Structures: The bladder is distended. The prostate is normal. No free pelvic fluidis present. Mildly prominent bilateral inguinal lymph nodes are present. Vasculature: Normal. Bones: The visible osseous structures are intact. Soft tissues: Normal. Impression: 1.Significant patient motion artifact, within this limitation there isno visceral, vascular, or osseus injury the chest, abdomen, or pelvis. Report drafted by Hortencia Umaña (resident) Dr. [place] Barahona M.D. have personally reviewed and interpretedthis examination/study. This report was electronically signed by [place] RITTER M.D. on 12/10/2020 1:43 PM . Ying Soto MD CT ORDERABLES * CT LUMBAR SPINE WO CONTRAST - T/L-spine trauma, Spine fracture (12/10/2020 4:34 AM CDT) Anatomical Region Laterality Modality Spine Computed Tomogra phy 12/10/2020 4:35 AM CDT Impressions 12/10/2020 10:42 AM CDT IMPRESSION: 1.A 0.9 x 0.5 cm area of hyperdensity within the right inferior frontal lobe with suspected minimal adjacent vasogenic edema compatible with hemorrhagic contusion. 2.Mild thickening of the posterior falx might represent a small volume subdural hemorrhage. There is large right posterior scalp soft tissue hematoma/laceration 3.Effacement of the sulci could be a normal variant or represent underlying brain edema. Underlying diffuse axonal injury cannot be excluded and appropriate clinical setting. Attention on follow-up is recommended. 4.No acute facial bone fractures identified. 5.No evidence of acute fracture in the cervical, thoracic, or lumbar spine. Dictated by Karla Leger MD (radiology assistant). Preliminary findings were discussed with Dr. Rivera by Dr. Leger at 12/10/2020 at 4:42 AM. This report was approved ??by Karla Leger ?? on 12/10/2020 10:42 AM . I, Dr. ROWAN LUCERO have personally reviewed and interpreted this examination/study. This report was electronically signed by ROWAN LUCERO ??on 12/10/2020 10:42 AM . Narrative 12/10/2020 10:[address] LUMBAR SPINE WO CONTRAST, CT THORACIC SPINE WO CONTRAST, CT CERVICAL SPINE WO CONTRAST, CT FACIAL BONES WO CONTRAST, CT HEAD WO CONTRAST DATE: 12/10/2020 4:35 AM EXAMINATION: 1. Computed tomography (CT) of the head without contrast 2. CT of the maxillofacial bones, orbits, and paranasal sinuses without contrast 3. CT of the cervical spine without contrast 4. CT of the thoracic spine without contrast 5. CT of the lumbar spine without contrast HISTORY: Trauma TECHNIQUE: CT of the head, cervical spine, and maxillofacial bones, orbits, and paranasal sinuses was performed without contrast according to standard protocol. Reformatted axial, sagittal, and coronal images of the thoracic and lumbar spine were obtained by the technologist from a concurrently performed body CT and sent to the workstation for review. COMPARISON: No prior study is available for comparison at the time of this dictation. FINDINGS: Images are significantly degraded by motion artifact. Head: There is a 0.9 x 0.5 cm area of hyperdensity within the right inferior frontal lobe with suspected minimal adjacent vasogenic edema compatible with a small hemorrhagic contusion. Mild thickening and hyperdensity of the posterior falx might represent a small volume subdural hemorrhage. Additional small intracranial hemorrhages are not excluded due to the presence of motion and streak artifacts. There is large right posterior scalp soft tissue hematoma/laceration. The ventricles are nondilated. Effacement of the cortical sulci can be abnormal variant or represent underlying brain edema The basilar cisterns are patent. No mass effect or midline shift is seen. The reese-white matter differentiation is normal. Motion artifact reduces the sensitivity for detection of fractures. There is a soft tissue swelling/hematoma along the right parietal scalp with overlaying scalp lacerations. Maxillofacial: The orbits appear normal. There is mild paranasal sinus disease. There are numerous dental caries and periapical lucencies/periapical abscesses. The hard palate, mandible, and temporomandibular joints appear otherwise grossly unremarkable. No acute facial bone fractures are identified. The mastoid air cells are clear. No soft tissue abnormality is identified. There is prominent soft palate better visualized on lateral soft tissue neck images. Cervical spine: The alignment is normal. Vertebral bodies are normal in height without evidence of acute fracture. The craniocervical junction is normal. The intervertebral discs appear normal. No central canal stenosis is seen. The facets appear normal. The uncovertebral joints appear normal. No neural foraminal stenosis is seen. Subcentimeter hypodense nodules in the thyroid gland are indeterminate. There are small cervical lymph nodes which are nonspecific. Thoracic spine: The alignment is maintained. Vertebral bodies are normal in height without evidence of acute fracture. Anterior superior endplate degenerative changes at the lower thoracic spine. There is mild degenerative disc disease. ??No central canal stenosis is seen. There are varying degrees of mild facet osteoarthritis. ??Mild neural foraminal stenosis is seen in the upper mid thoracic spine on the right side. There is partially imaged mild enlargement of pulmonary artery measures up to 3.5 cm suggestive of a hypertension. There is subsegmental atelectasis in the dependent portions of the lung bases. There is left atrial enlargement. Lumbar spine: The images are degraded due to motion artifacts. Within this limitation: Mild dextroscoliosis. Vertebral bodies are normal in height without evidence of acute fracture. The intervertebral discs appear normal. No central canal stenosis is seen. There are varying degrees of mild facet osteoarthritis. No neural foraminal stenosis is seen. There are degenerative changes of the SI joints. No soft tissue abnormality is identified. Procedure Note Rowan Lucero MD - 12/10/2020 CT LUMBAR SPINE WO CONTRAST, CT THORACIC SPINE WO CONTRAST, CT CERVICAL SPINE WO CONTRAST, CT FACIAL BONES WO CONTRAST, CT HEAD WO CONTRAST DATE: 12/10/2020 4:35 AM EXAMINATION: 1. Computed tomography (CT) of the head without contrast 2. CT of the maxillofacial bones, orbits, and paranasal sinuses without contrast 3. CT of the cervical spine without contrast 4. CT of the thoracic spine without contrast 5. CT of the lumbar spine without contrast HISTORY: Trauma TECHNIQUE: CT of the head, cervical spine, and maxillofacial bones, orbits, and paranasal sinuses was performed without contrast accordingto standard protocol. Reformatted axial, sagittal, and coronal images ofthe thoracic and lumbar spine were obtained by the technologist from a concurrently performed body CT and sent to the workstation for review. COMPARISON: No prior study is available for comparison at the time ofthis dictation. FINDINGS: Images are significantly degraded by motion artifact. Head: There is a 0.9 x 0.5 cm area of hyperdensity within the right inferior frontal lobe with suspected minimal adjacent vasogenic edema compatible with a small hemorrhagic contusion. Mild thickening and hyperdensity of the posterior falx might represent a small volume subdural hemorrhage. Additional small intracranial hemorrhages are not excluded due to the presence of motion and streak artifacts. There is large right posterior scalp soft tissue hematoma/laceration. The ventricles are nondilated. Effacement of the cortical sulci can be abnormal variant or represent underlying brain edema The basilar cisterns are patent. No mass effector midline shift is seen. The reese-white matter differentiation is normal. Motion artifact reduces the sensitivity for detection of fractures.There is a soft tissue swelling/hematoma along the right parietal scalp with overlaying scalp lacerations. Maxillofacial: The orbits appear normal. There is mild paranasal sinus disease. Thereare numerous dental caries and periapical lucencies/periapical abscesses.The hard palate, mandible, and temporomandibular joints appear otherwise grossly unremarkable. No acute facial bone fractures are identified. The mastoid air cells are clear. No soft tissue abnormality is identified. There is prominent soft palate better visualized on lateral soft tissue neck images. Cervical spine: The alignment is normal. Vertebral bodies are normal in height without evidence of acute fracture. The craniocervical junction is normal. The intervertebral discs appear normal. No central canal stenosis is seen.The facets appear normal. The uncovertebral joints appear normal. No neural foraminal stenosis is seen. Subcentimeter hypodense nodules in thethyroid gland are indeterminate. There are small cervical lymph nodes which are nonspecific. Thoracic spine: The alignment is maintained. Vertebral bodies are normal in heightwithout evidence of acute fracture. Anterior superior endplate degenerative changes at the lower thoracic spine. There is mild degenerative disc disease. No central canal stenosis is seen. There are varying degreesof mild facet osteoarthritis. Mild neural foraminal stenosis is seen inthe upper mid thoracic spine on the right side. There is partially imagedmild enlargement of pulmonary artery measures up to 3.5 cm suggestive of a hypertension. There is subsegmental atelectasis in the dependentportions of the lung bases. There is left atrial enlargement. Lumbar spine: The images are degraded due to motion artifacts. Withinthis limitation: Mild dextroscoliosis. Vertebral bodies are normal in height without evidence of acute fracture. The intervertebral discs appear normal. No central canal stenosis is seen. There are varying degrees of mild facet osteoarthritis. No neural foraminal stenosis is seen. There are degenerative changes of the SI joints. No soft tissue abnormality is identified. IMPRESSION: 1.A 0.9 x 0.5 cm area of hyperdensity within the right inferior frontal lobe with suspected minimal adjacent vasogenic edema compatible with hemorrhagic contusion. 2.Mild thickening of the posterior falx might represent a small volume subdural hemorrhage. There is large right posterior scalp soft tissue hematoma/laceration 3.Effacement of the sulci could be a normal variant or represent underlying brain edema. Underlying diffuse axonal injury cannot be excluded and appropriate clinical setting. Attention on follow-up is recommended. 4.No acute facial bone fractures identified. 5.No evidence of acute fracture in the cervical, thoracic, or lumbarspine. Dictated by Karla Leger MD (radiology assistant). Preliminary findings were discussed with Dr. Rivera by Dr. Leger at 12/10/2020 at 4:42 AM. This report was approved by Karla Leger on 12/10/2020 10:42 AM. I, Dr. ROWAN LUCERO have personally reviewed and interpreted this examination/study. This report was electronically signed by ROWAN LUCERO on12/10/2020 10:42 AM . Ying Soto MD CT ORDERABLES * CT THORACIC SPINE WO CONTRAST - T/L-spine trauma, spine fracture (12/10/2020 4:34 AM CDT) Anatomical Region Laterality Modality Spine Computed Tomogra phy 12/10/2020 4:35 AM CDT Impressions 12/10/2020 10:42 AM CDT IMPRESSION: 1.A 0.9 x 0.5 cm area of hyperdensity within the right inferior frontal lobe with suspected minimal adjacent vasogenic edema compatible with hemorrhagic contusion. 2.Mild thickening of the posterior falx might represent a small volume subdural hemorrhage. There is large right posterior scalp soft tissue hematoma/laceration 3.Effacement of the sulci could be a normal variant or represent underlying brain edema. Underlying diffuse axonal injury cannot be excluded and appropriate clinical setting. Attention on follow-up is recommended. 4.No acute facial bone fractures identified. 5.No evidence of acute fracture in the cervical, thoracic, or lumbar spine. Dictated by Karla Leger MD (radiology assistant). Preliminary findings were discussed with Dr. Rivera by Dr. Leger at 12/10/2020 at 4:42 AM. This report was approved ??by Karla Leger ?? on 12/10/2020 10:42 AM . I, Dr. ROWAN LUCERO have personally reviewed and interpreted this examination/study. This report was electronically signed by ROWAN LUCERO ??on 12/10/2020 10:42 AM . Narrative 12/10/2020 10:[address] LUMBAR SPINE WO CONTRAST, CT THORACIC SPINE WO CONTRAST, CT CERVICAL SPINE WO CONTRAST, CT FACIAL BONES WO CONTRAST, CT HEAD WO CONTRAST DATE: 12/10/2020 4:35 AM EXAMINATION: 1. Computed tomography (CT) of the head without contrast 2. CT of the maxillofacial bones, orbits, and paranasal sinuses without contrast 3. CT of the cervical spine without contrast 4. CT of the thoracic spine without contrast 5. CT of the lumbar spine without contrast HISTORY: Trauma TECHNIQUE: CT of the head, cervical spine, and maxillofacial bones, orbits, and paranasal sinuses was performed without contrast according to standard protocol. Reformatted axial, sagittal, and coronal images of the thoracic and lumbar spine were obtained by the technologist from a concurrently performed body CT and sent to the workstation for review. COMPARISON: No prior study is available for comparison at the time of this dictation. FINDINGS: Images are significantly degraded by motion artifact. Head: There is a 0.9 x 0.5 cm area of hyperdensity within the right inferior frontal lobe with suspected minimal adjacent vasogenic edema compatible with a small hemorrhagic contusion. Mild thickening and hyperdensity of the posterior falx might represent a small volume subdural hemorrhage. Additional small intracranial hemorrhages are not excluded due to the presence of motion and streak artifacts. There is large right posterior scalp soft tissue hematoma/laceration. The ventricles are nondilated. Effacement of the cortical sulci can be abnormal variant or represent underlying brain edema The basilar cisterns are patent. No mass effect or midline shift is seen. The reese-white matter differentiation is normal. Motion artifact reduces the sensitivity for detection of fractures. There is a soft tissue swelling/hematoma along the right parietal scalp with overlaying scalp lacerations. Maxillofacial: The orbits appear normal. There is mild paranasal sinus disease. There are numerous dental caries and periapical lucencies/periapical abscesses. The hard palate, mandible, and temporomandibular joints appear otherwise grossly unremarkable. No acute facial bone fractures are identified. The mastoid air cells are clear. No soft tissue abnormality is identified. There is prominent soft palate better visualized on lateral soft tissue neck images. Cervical spine: The alignment is normal. Vertebral bodies are normal in height without evidence of acute fracture. The craniocervical junction is normal. The intervertebral discs appear normal. No central canal stenosis is seen. The facets appear normal. The uncovertebral joints appear normal. No neural foraminal stenosis is seen. Subcentimeter hypodense nodules in the thyroid gland are indeterminate. There are small cervical lymph nodes which are nonspecific. Thoracic spine: The alignment is maintained. Vertebral bodies are normal in height without evidence of acute fracture. Anterior superior endplate degenerative changes at the lower thoracic spine. There is mild degenerative disc disease. ??No central canal stenosis is seen. There are varying degrees of mild facet osteoarthritis. ??Mild neural foraminal stenosis is seen in the upper mid thoracic spine on the right side. There is partially imaged mild enlargement of pulmonary artery measures up to 3.5 cm suggestive of a hypertension. There is subsegmental atelectasis in the dependent portions of the lung bases. There is left atrial enlargement. Lumbar spine: The images are degraded due to motion artifacts. Within this limitation: Mild dextroscoliosis. Vertebral bodies are normal in height without evidence of acute fracture. The intervertebral discs appear normal. No central canal stenosis is seen. There are varying degrees of mild facet osteoarthritis. No neural foraminal stenosis is seen. There are degenerative changes of the SI joints. No soft tissue abnormality is identified. Procedure Note Rowan Lucero MD - 12/10/2020 CT LUMBAR SPINE WO CONTRAST, CT THORACIC SPINE WO CONTRAST, CT CERVICAL SPINE WO CONTRAST, CT FACIAL BONES WO CONTRAST, CT HEAD WO CONTRAST DATE: 12/10/2020 4:35 AM EXAMINATION: 1. Computed tomography (CT) of the head without contrast 2. CT of the maxillofacial bones, orbits, and paranasal sinuses without contrast 3. CT of the cervical spine without contrast 4. CT of the thoracic spine without contrast 5. CT of the lumbar spine without contrast HISTORY: Trauma TECHNIQUE: CT of the head, cervical spine, and maxillofacial bones, orbits, and paranasal sinuses was performed without contrast accordingto standard protocol. Reformatted axial, sagittal, and coronal images ofthe thoracic and lumbar spine were obtained by the technologist from a concurrently performed body CT and sent to the workstation for review. COMPARISON: No prior study is available for comparison at the time ofthis dictation. FINDINGS: Images are significantly degraded by motion artifact. Head: There is a 0.9 x 0.5 cm area of hyperdensity within the right inferior frontal lobe with suspected minimal adjacent vasogenic edema compatible with a small hemorrhagic contusion. Mild thickening and hyperdensity of the posterior falx might represent a small volume subdural hemorrhage. Additional small intracranial hemorrhages are not excluded due to the presence of motion and streak artifacts. There is large right posterior scalp soft tissue hematoma/laceration. The ventricles are nondilated. Effacement of the cortical sulci can be abnormal variant or represent underlying brain edema The basilar cisterns are patent. No mass effector midline shift is seen. The reese-white matter differentiation is normal. Motion artifact reduces the sensitivity for detection of fractures.There is a soft tissue swelling/hematoma along the right parietal scalp with overlaying scalp lacerations. Maxillofacial: The orbits appear normal. There is mild paranasal sinus disease. Thereare numerous dental caries and periapical lucencies/periapical abscesses.The hard palate, mandible, and temporomandibular joints appear otherwise grossly unremarkable. No acute facial bone fractures are identified. The mastoid air cells are clear. No soft tissue abnormality is identified. There is prominent soft palate better visualized on lateral soft tissue neck images. Cervical spine: The alignment is normal. Vertebral bodies are normal in height without evidence of acute fracture. The craniocervical junction is normal. The intervertebral discs appear normal. No central canal stenosis is seen.The facets appear normal. The uncovertebral joints appear normal. No neural foraminal stenosis is seen. Subcentimeter hypodense nodules in thethyroid gland are indeterminate. There are small cervical lymph nodes which are nonspecific. Thoracic spine: The alignment is maintained. Vertebral bodies are normal in heightwithout evidence of acute fracture. Anterior superior endplate degenerative changes at the lower thoracic spine. There is mild degenerative disc disease. No central canal stenosis is seen. There are varying degreesof mild facet osteoarthritis. Mild neural foraminal stenosis is seen inthe upper mid thoracic spine on the right side. There is partially imagedmild enlargement of pulmonary artery measures up to 3.5 cm suggestive of a hypertension. There is subsegmental atelectasis in the dependentportions of the lung bases. There is left atrial enlargement. Lumbar spine: The images are degraded due to motion artifacts. Withinthis limitation: Mild dextroscoliosis. Vertebral bodies are normal in height without evidence of acute fracture. The intervertebral discs appear normal. No central canal stenosis is seen. There are varying degrees of mild facet osteoarthritis. No neural foraminal stenosis is seen. There are degenerative changes of the SI joints. No soft tissue abnormality is identified. IMPRESSION: 1.A 0.9 x 0.5 cm area of hyperdensity within the right inferior frontal lobe with suspected minimal adjacent vasogenic edema compatible with hemorrhagic contusion. 2.Mild thickening of the posterior falx might represent a small volume subdural hemorrhage. There is large right posterior scalp soft tissue hematoma/laceration 3.Effacement of the sulci could be a normal variant or represent underlying brain edema. Underlying diffuse axonal injury cannot be excluded and appropriate clinical setting. Attention on follow-up is recommended. 4.No acute facial bone fractures identified. 5.No evidence of acute fracture in the cervical, thoracic, or lumbarspine. Dictated by Karla Leger MD (radiology assistant). Preliminary findings were discussed with Dr. Rivera by Dr. Leger at 12/10/2020 at 4:42 AM. This report was approved by Karla Leger on 12/10/2020 10:42 AM. I, Dr. ROWAN LUCERO have personally reviewed and interpreted this examination/study. This report was electronically signed by ROWAN LUCERO on12/10/2020 10:42 AM . Ying Soto MD CT ORDERABLES * CT CERVICAL SPINE WO CONTRAST - C-Spine Trauma, Spine fracture (12/10/2020 4:34 AM CDT) Anatomical Region Laterality Modality Spine Computed Tomogra phy 12/10/2020 4:35 AM CDT Impressions 12/10/2020 10:42 AM CDT IMPRESSION: 1.A 0.9 x 0.5 cm area of hyperdensity within the right inferior frontal lobe with suspected minimal adjacent vasogenic edema compatible with hemorrhagic contusion. 2.Mild thickening of the posterior falx might represent a small volume subdural hemorrhage. There is large right posterior scalp soft tissue hematoma/laceration 3.Effacement of the sulci could be a normal variant or represent underlying brain edema. Underlying diffuse axonal injury cannot be excluded and appropriate clinical setting. Attention on follow-up is recommended. 4.No acute facial bone fractures identified. 5.No evidence of acute fracture in the cervical, thoracic, or lumbar spine. Dictated by Karla Leger MD (radiology assistant). Preliminary findings were discussed with Dr. Rivera by Dr. Leger at 12/10/2020 at 4:42 AM. This report was approved ??by Karla Leger ?? on 12/10/2020 10:42 AM . I, Dr. ROWAN LUCERO have personally reviewed and interpreted this examination/study. This report was electronically signed by ROWAN LUCERO ??on 12/10/2020 10:42 AM . Narrative 12/10/2020 10:[address] LUMBAR SPINE WO CONTRAST, CT THORACIC SPINE WO CONTRAST, CT CERVICAL SPINE WO CONTRAST, CT FACIAL BONES WO CONTRAST, CT HEAD WO CONTRAST DATE: 12/10/2020 4:35 AM EXAMINATION: 1. Computed tomography (CT) of the head without contrast 2. CT of the maxillofacial bones, orbits, and paranasal sinuses without contrast 3. CT of the cervical spine without contrast 4. CT of the thoracic spine without contrast 5. CT of the lumbar spine without contrast HISTORY: Trauma TECHNIQUE: CT of the head, cervical spine, and maxillofacial bones, orbits, and paranasal sinuses was performed without contrast according to standard protocol. Reformatted axial, sagittal, and coronal images of the thoracic and lumbar spine were obtained by the technologist from a concurrently performed body CT and sent to the workstation for review. COMPARISON: No prior study is available for comparison at the time of this dictation. FINDINGS: Images are significantly degraded by motion artifact. Head: There is a 0.9 x 0.5 cm area of hyperdensity within the right inferior frontal lobe with suspected minimal adjacent vasogenic edema compatible with a small hemorrhagic contusion. Mild thickening and hyperdensity of the posterior falx might represent a small volume subdural hemorrhage. Additional small intracranial hemorrhages are not excluded due to the presence of motion and streak artifacts. There is large right posterior scalp soft tissue hematoma/laceration. The ventricles are nondilated. Effacement of the cortical sulci can be abnormal variant or represent underlying brain edema The basilar cisterns are patent. No mass effect or midline shift is seen. The reese-white matter differentiation is normal. Motion artifact reduces the sensitivity for detection of fractures. There is a soft tissue swelling/hematoma along the right parietal scalp with overlaying scalp lacerations. Maxillofacial: The orbits appear normal. There is mild paranasal sinus disease. There are numerous dental caries and periapical lucencies/periapical abscesses. The hard palate, mandible, and temporomandibular joints appear otherwise grossly unremarkable. No acute facial bone fractures are identified. The mastoid air cells are clear. No soft tissue abnormality is identified. There is prominent soft palate better visualized on lateral soft tissue neck images. Cervical spine: The alignment is normal. Vertebral bodies are normal in height without evidence of acute fracture. The craniocervical junction is normal. The intervertebral discs appear normal. No central canal stenosis is seen. The facets appear normal. The uncovertebral joints appear normal. No neural foraminal stenosis is seen. Subcentimeter hypodense nodules in the thyroid gland are indeterminate. There are small cervical lymph nodes which are nonspecific. Thoracic spine: The alignment is maintained. Vertebral bodies are normal in height without evidence of acute fracture. Anterior superior endplate degenerative changes at the lower thoracic spine. There is mild degenerative disc disease. ??No central canal stenosis is seen. There are varying degrees of mild facet osteoarthritis. ??Mild neural foraminal stenosis is seen in the upper mid thoracic spine on the right side. There is partially imaged mild enlargement of pulmonary artery measures up to 3.5 cm suggestive of a hypertension. There is subsegmental atelectasis in the dependent portions of the lung bases. There is left atrial enlargement. Lumbar spine: The images are degraded due to motion artifacts. Within this limitation: Mild dextroscoliosis. Vertebral bodies are normal in height without evidence of acute fracture. The intervertebral discs appear normal. No central canal stenosis is seen. There are varying degrees of mild facet osteoarthritis. No neural foraminal stenosis is seen. There are degenerative changes of the SI joints. No soft tissue abnormality is identified. Procedure Note Rowan Lucero MD - 12/10/2020 CT LUMBAR SPINE WO CONTRAST, CT THORACIC SPINE WO CONTRAST, CT CERVICAL SPINE WO CONTRAST, CT FACIAL BONES WO CONTRAST, CT HEAD WO CONTRAST DATE: 12/10/2020 4:35 AM EXAMINATION: 1. Computed tomography (CT) of the head without contrast 2. CT of the maxillofacial bones, orbits, and paranasal sinuses without contrast 3. CT of the cervical spine without contrast 4. CT of the thoracic spine without contrast 5. CT of the lumbar spine without contrast HISTORY: Trauma TECHNIQUE: CT of the head, cervical spine, and maxillofacial bones, orbits, and paranasal sinuses was performed without contrast accordingto standard protocol. Reformatted axial, sagittal, and coronal images ofthe thoracic and lumbar spine were obtained by the technologist from a concurrently performed body CT and sent to the workstation for review. COMPARISON: No prior study is available for comparison at the time ofthis dictation. FINDINGS: Images are significantly degraded by motion artifact. Head: There is a 0.9 x 0.5 cm area of hyperdensity within the right inferior frontal lobe with suspected minimal adjacent vasogenic edema compatible with a small hemorrhagic contusion. Mild thickening and hyperdensity of the posterior falx might represent a small volume subdural hemorrhage. Additional small intracranial hemorrhages are not excluded due to the presence of motion and streak artifacts. There is large right posterior scalp soft tissue hematoma/laceration. The ventricles are nondilated. Effacement of the cortical sulci can be abnormal variant or represent underlying brain edema The basilar cisterns are patent. No mass effector midline shift is seen. The reese-white matter differentiation is normal. Motion artifact reduces the sensitivity for detection of fractures.There is a soft tissue swelling/hematoma along the right parietal scalp with overlaying scalp lacerations. Maxillofacial: The orbits appear normal. There is mild paranasal sinus disease. Thereare numerous dental caries and periapical lucencies/periapical abscesses.The hard palate, mandible, and temporomandibular joints appear otherwise grossly unremarkable. No acute facial bone fractures are identified. The mastoid air cells are clear. No soft tissue abnormality is identified. There is prominent soft palate better visualized on lateral soft tissue neck images. Cervical spine: The alignment is normal. Vertebral bodies are normal in height without evidence of acute fracture. The craniocervical junction is normal. The intervertebral discs appear normal. No central canal stenosis is seen.The facets appear normal. The uncovertebral joints appear normal. No neural foraminal stenosis is seen. Subcentimeter hypodense nodules in thethyroid gland are indeterminate. There are small cervical lymph nodes which are nonspecific. Thoracic spine: The alignment is maintained. Vertebral bodies are normal in heightwithout evidence of acute fracture. Anterior superior endplate degenerative changes at the lower thoracic spine. There is mild degenerative disc disease. No central canal stenosis is seen. There are varying degreesof mild facet osteoarthritis. Mild neural foraminal stenosis is seen inthe upper mid thoracic spine on the right side. There is partially imagedmild enlargement of pulmonary artery measures up to 3.5 cm suggestive of a hypertension. There is subsegmental atelectasis in the dependentportions of the lung bases. There is left atrial enlargement. Lumbar spine: The images are degraded due to motion artifacts. Withinthis limitation: Mild dextroscoliosis. Vertebral bodies are normal in height without evidence of acute fracture. The intervertebral discs appear normal. No central canal stenosis is seen. There are varying degrees of mild facet osteoarthritis. No neural foraminal stenosis is seen. There are degenerative changes of the SI joints. No soft tissue abnormality is identified. IMPRESSION: 1.A 0.9 x 0.5 cm area of hyperdensity within the right inferior frontal lobe with suspected minimal adjacent vasogenic edema compatible with hemorrhagic contusion. 2.Mild thickening of the posterior falx might represent a small volume subdural hemorrhage. There is large right posterior scalp soft tissue hematoma/laceration 3.Effacement of the sulci could be a normal variant or represent underlying brain edema. Underlying diffuse axonal injury cannot be excluded and appropriate clinical setting. Attention on follow-up is recommended. 4.No acute facial bone fractures identified. 5.No evidence of acute fracture in the cervical, thoracic, or lumbarspine. Dictated by Karla Leger MD (radiology assistant). Preliminary findings were discussed with Dr. Rivera by Dr. Leger at 12/10/2020 at 4:42 AM. This report was approved by Karla Leger on 12/10/2020 10:42 AM. I, Dr. ROWAN LUCERO have personally reviewed and interpreted this examination/study. This report was electronically signed by ROWAN LUCERO on12/10/2020 10:42 AM . Ying Soto MD CT ORDERABLES * CT FACIAL BONES WO CONTRAST - Facial trauma, fx suspected, blunt (12/10/2020 4:34 AM CDT) Anatomical Region Laterality Modality Head Computed Tomogra phy 12/10/2020 4:35 AM CDT Impressions 12/10/2020 10:42 AM CDT IMPRESSION: 1.A 0.9 x 0.5 cm area of hyperdensity within the right inferior frontal lobe with suspected minimal adjacent vasogenic edema compatible with hemorrhagic contusion. 2.Mild thickening of the posterior falx might represent a small volume subdural hemorrhage. There is large right posterior scalp soft tissue hematoma/laceration 3.Effacement of the sulci could be a normal variant or represent underlying brain edema. Underlying diffuse axonal injury cannot be excluded and appropriate clinical setting. Attention on follow-up is recommended. 4.No acute facial bone fractures identified. 5.No evidence of acute fracture in the cervical, thoracic, or lumbar spine. Dictated by Karla Leger MD (radiology assistant). Preliminary findings were discussed with Dr. Rivera by Dr. Leger at 12/10/2020 at 4:42 AM. This report was approved ??by Karla Leger ?? on 12/10/2020 10:42 AM . I, Dr. ROWAN LUCERO have personally reviewed and interpreted this examination/study. This report was electronically signed by ROWAN LUCERO ??on 12/10/2020 10:42 AM . Narrative 12/10/2020 10:[address] LUMBAR SPINE WO CONTRAST, CT THORACIC SPINE WO CONTRAST, CT CERVICAL SPINE WO CONTRAST, CT FACIAL BONES WO CONTRAST, CT HEAD WO CONTRAST DATE: 12/10/2020 4:35 AM EXAMINATION: 1. Computed tomography (CT) of the head without contrast 2. CT of the maxillofacial bones, orbits, and paranasal sinuses without contrast 3. CT of the cervical spine without contrast 4. CT of the thoracic spine without contrast 5. CT of the lumbar spine without contrast HISTORY: Trauma TECHNIQUE: CT of the head, cervical spine, and maxillofacial bones, orbits, and paranasal sinuses was performed without contrast according to standard protocol. Reformatted axial, sagittal, and coronal images of the thoracic and lumbar spine were obtained by the technologist from a concurrently performed body CT and sent to the workstation for review. COMPARISON: No prior study is available for comparison at the time of this dictation. FINDINGS: Images are significantly degraded by motion artifact. Head: There is a 0.9 x 0.5 cm area of hyperdensity within the right inferior frontal lobe with suspected minimal adjacent vasogenic edema compatible with a small hemorrhagic contusion. Mild thickening and hyperdensity of the posterior falx might represent a small volume subdural hemorrhage. Additional small intracranial hemorrhages are not excluded due to the presence of motion and streak artifacts. There is large right posterior scalp soft tissue hematoma/laceration. The ventricles are nondilated. Effacement of the cortical sulci can be abnormal variant or represent underlying brain edema The basilar cisterns are patent. No mass effect or midline shift is seen. The reese-white matter differentiation is normal. Motion artifact reduces the sensitivity for detection of fractures. There is a soft tissue swelling/hematoma along the right parietal scalp with overlaying scalp lacerations. Maxillofacial: The orbits appear normal. There is mild paranasal sinus disease. There are numerous dental caries and periapical lucencies/periapical abscesses. The hard palate, mandible, and temporomandibular joints appear otherwise grossly unremarkable. No acute facial bone fractures are identified. The mastoid air cells are clear. No soft tissue abnormality is identified. There is prominent soft palate better visualized on lateral soft tissue neck images. Cervical spine: The alignment is normal. Vertebral bodies are normal in height without evidence of acute fracture. The craniocervical junction is normal. The intervertebral discs appear normal. No central canal stenosis is seen. The facets appear normal. The uncovertebral joints appear normal. No neural foraminal stenosis is seen. Subcentimeter hypodense nodules in the thyroid gland are indeterminate. There are small cervical lymph nodes which are nonspecific. Thoracic spine: The alignment is maintained. Vertebral bodies are normal in height without evidence of acute fracture. Anterior superior endplate degenerative changes at the lower thoracic spine. There is mild degenerative disc disease. ??No central canal stenosis is seen. There are varying degrees of mild facet osteoarthritis. ??Mild neural foraminal stenosis is seen in the upper mid thoracic spine on the right side. There is partially imaged mild enlargement of pulmonary artery measures up to 3.5 cm suggestive of a hypertension. There is subsegmental atelectasis in the dependent portions of the lung bases. There is left atrial enlargement. Lumbar spine: The images are degraded due to motion artifacts. Within this limitation: Mild dextroscoliosis. Vertebral bodies are normal in height without evidence of acute fracture. The intervertebral discs appear normal. No central canal stenosis is seen. There are varying degrees of mild facet osteoarthritis. No neural foraminal stenosis is seen. There are degenerative changes of the SI joints. No soft tissue abnormality is identified. Procedure Note Rowan Lucero MD - 12/10/2020 CT LUMBAR SPINE WO CONTRAST, CT THORACIC SPINE WO CONTRAST, CT CERVICAL SPINE WO CONTRAST, CT FACIAL BONES WO CONTRAST, CT HEAD WO CONTRAST DATE: 12/10/2020 4:35 AM EXAMINATION: 1. Computed tomography (CT) of the head without contrast 2. CT of the maxillofacial bones, orbits, and paranasal sinuses without contrast 3. CT of the cervical spine without contrast 4. CT of the thoracic spine without contrast 5. CT of the lumbar spine without contrast HISTORY: Trauma TECHNIQUE: CT of the head, cervical spine, and maxillofacial bones, orbits, and paranasal sinuses was performed without contrast accordingto standard protocol. Reformatted axial, sagittal, and coronal images ofthe thoracic and lumbar spine were obtained by the technologist from a concurrently performed body CT and sent to the workstation for review. COMPARISON: No prior study is available for comparison at the time ofthis dictation. FINDINGS: Images are significantly degraded by motion artifact. Head: There is a 0.9 x 0.5 cm area of hyperdensity within the right inferior frontal lobe with suspected minimal adjacent vasogenic edema compatible with a small hemorrhagic contusion. Mild thickening and hyperdensity of the posterior falx might represent a small volume subdural hemorrhage. Additional small intracranial hemorrhages are not excluded due to the presence of motion and streak artifacts. There is large right posterior scalp soft tissue hematoma/laceration. The ventricles are nondilated. Effacement of the cortical sulci can be abnormal variant or represent underlying brain edema The basilar cisterns are patent. No mass effector midline shift is seen. The reese-white matter differentiation is normal. Motion artifact reduces the sensitivity for detection of fractures.There is a soft tissue swelling/hematoma along the right parietal scalp with overlaying scalp lacerations. Maxillofacial: The orbits appear normal. There is mild paranasal sinus disease. Thereare numerous dental caries and periapical lucencies/periapical abscesses.The hard palate, mandible, and temporomandibular joints appear otherwise grossly unremarkable. No acute facial bone fractures are identified. The mastoid air cells are clear. No soft tissue abnormality is identified. There is prominent soft palate better visualized on lateral soft tissue neck images. Cervical spine: The alignment is normal. Vertebral bodies are normal in height without evidence of acute fracture. The craniocervical junction is normal. The intervertebral discs appear normal. No central canal stenosis is seen.The facets appear normal. The uncovertebral joints appear normal. No neural foraminal stenosis is seen. Subcentimeter hypodense nodules in thethyroid gland are indeterminate. There are small cervical lymph nodes which are nonspecific. Thoracic spine: The alignment is maintained. Vertebral bodies are normal in heightwithout evidence of acute fracture. Anterior superior endplate degenerative changes at the lower thoracic spine. There is mild degenerative disc disease. No central canal stenosis is seen. There are varying degreesof mild facet osteoarthritis. Mild neural foraminal stenosis is seen inthe upper mid thoracic spine on the right side. There is partially imagedmild enlargement of pulmonary artery measures up to 3.5 cm suggestive of a hypertension. There is subsegmental atelectasis in the dependentportions of the lung bases. There is left atrial enlargement. Lumbar spine: The images are degraded due to motion artifacts. Withinthis limitation: Mild dextroscoliosis. Vertebral bodies are normal in height without evidence of acute fracture. The intervertebral discs appear normal. No central canal stenosis is seen. There are varying degrees of mild facet osteoarthritis. No neural foraminal stenosis is seen. There are degenerative changes of the SI joints. No soft tissue abnormality is identified. IMPRESSION: 1.A 0.9 x 0.5 cm area of hyperdensity within the right inferior frontal lobe with suspected minimal adjacent vasogenic edema compatible with hemorrhagic contusion. 2.Mild thickening of the posterior falx might represent a small volume subdural hemorrhage. There is large right posterior scalp soft tissue hematoma/laceration 3.Effacement of the sulci could be a normal variant or represent underlying brain edema. Underlying diffuse axonal injury cannot be excluded and appropriate clinical setting. Attention on follow-up is recommended. 4.No acute facial bone fractures identified. 5.No evidence of acute fracture in the cervical, thoracic, or lumbarspine. Dictated by Karla Leger MD (radiology assistant). Preliminary findings were discussed with Dr. Rivera by Dr. Leger at 12/10/2020 at 4:42 AM. This report was approved by Karla Leger on 12/10/2020 10:42 AM. I, Dr. ROWAN LUCERO have personally reviewed and interpreted this examination/study. This report was electronically signed by ROWAN LUCERO on12/10/2020 10:42 AM . Ying Soto MD CT ORDERABLES * XR ANKLE LEFT 3VW OR MORE (12/10/2020 4:13 AM CDT) Anatomical Region Laterality Modality Lower Extremity Radiographic Maria Teresa ging 12/10/2020 4:18 AM CDT Impressions 12/10/2020 11:56 AM CDT IMPRESSION: No acute fracture or dislocation identified. Report dictated by Karla Leger M.D. (radiology assistant). Dr. BECCA Barahona have personally reviewed and interpreted this examination/study. This report was electronically signed by BECCA LYNN ??on 12/10/2020 11:56 AM . Narrative 12/10/2020 11:56 AM CDT EXAMINATION: XR FOOT LEFT 3VW OR MORE, XR ANKLE LEFT 3VW OR MORE HISTORY: T14.90XA: Trauma COMPARISON: No prior study is available for comparison. FINDINGS: Left ankle: The osseous structures are intact and well aligned without acute fracture or dislocation. The ankle mortise is intact. Bone density and texture are normal. No soft tissue swelling is present. Left foot: The osseous structures are intact and well aligned without acute fracture or dislocation. The joint spaces are preserved. Bone density and texture are normal. No soft tissue swelling is present. Procedure Note Becca Lynn, - 12/10/2020 EXAMINATION: XR FOOT LEFT 3VW OR MORE, XR ANKLE LEFT 3VW OR MORE HISTORY: T14.90XA: Trauma COMPARISON: No prior study is available for comparison. FINDINGS: Left ankle: The osseous structures are intact and well aligned without acutefracture or dislocation. The ankle mortise is intact. Bone density and textureare normal. No soft tissue swelling is present. Left foot: The osseous structures are intact and well aligned without acutefracture or dislocation. The joint spaces are preserved. Bone density and texture are normal. No soft tissue swelling is present. IMPRESSION: No acute fracture or dislocation identified. Report dictated by Karla Leger M.D. (radiology assistant). Dr. BECCA Barahona have personally reviewed and interpreted this examination/study. This report was electronically signed by BECCA LYNN on 12/10/2020 11:56 AM . Ying Soto MD DIAGNOSTIC IMAG ING ORDERABLES * XR FOOT RIGHT 3VW OR MORE (12/10/2020 4:13 AM CDT) Anatomical Region Laterality Modality Ankle / Foot Radiographic Maria Teresa ging 12/10/2020 4:22 AM CDT Impressions 12/10/2020 11:56 AM CDT FINDINGS/IMPRESSION: Third distal phalanx deformity within the AP view is likely due to flexion at DIP. Cortical irregularity of the proximal portion of the distal first phalanx within the lateral view might be secondary to overlying soft tissue versus fracture. Correlation with point of tenderness is recommended. Dictated by Karla Leger MD (radiology assistant). Dr. BECCA Barahona have personally reviewed and interpreted this examination/study. This report was electronically signed by BECCA LYNN ??on 12/10/2020 11:56 AM . Narrative 12/10/2020 11:56 AM CDT EXAMINATION: XR FOOT RIGHT 3VW OR MORE HISTORY: T14.90XA: Trauma COMPARISON: No prior study is available for comparison. Procedure Note Becca Lynn, DO - 12/10/2020 EXAMINATION: XR FOOT RIGHT 3VW OR MORE HISTORY: T14.90XA: Trauma COMPARISON: No prior study is available for comparison. FINDINGS/IMPRESSION: Third distal phalanx deformity within the AP view is likely due toflexion at DIP. Cortical irregularity of the proximal portion of the distalfirst phalanx within the lateral view might be secondary to overlying soft tissue versus fracture. Correlation with point of tenderness is recommended. Dictated by Karla Leger MD (radiology assistant). Dr. BECCA Barahona have personally reviewed and interpreted this examination/study. This report was electronically signed by BECCA LYNN on 12/10/2020 11:56 AM . Ying Soto MD DIAGNOSTIC IMAG ING ORDERABLES * XR FOOT LEFT 3VW OR MORE (12/10/2020 4:13 AM CDT) Anatomical Region Laterality Modality Ankle / Foot Radiographic Maria Teresa ging 12/10/2020 4:18 AM CDT Impressions 12/10/2020 11:56 AM CDT IMPRESSION: No acute fracture or dislocation identified. Report dictated by Karla Leger M.D. (radiology assistant). Dr. BECCA Barahona have personally reviewed and interpreted this examination/study. This report was electronically signed by BECCA LYNN ??on 12/10/2020 11:56 AM . Narrative 12/10/2020 11:56 AM CDT EXAMINATION: XR FOOT LEFT 3VW OR MORE, XR ANKLE LEFT 3VW OR MORE HISTORY: T14.90XA: Trauma COMPARISON: No prior study is available for comparison. FINDINGS: Left ankle: The osseous structures are intact and well aligned without acute fracture or dislocation. The ankle mortise is intact. Bone density and texture are normal. No soft tissue swelling is present. Left foot: The osseous structures are intact and well aligned without acute fracture or dislocation. The joint spaces are preserved. Bone density and texture are normal. No soft tissue swelling is present. Procedure Note Becca Lynn DO - 12/10/2020 EXAMINATION: XR FOOT LEFT 3VW OR MORE, XR ANKLE LEFT 3VW OR MORE HISTORY: T14.90XA: Trauma COMPARISON: No prior study is available for comparison. FINDINGS: Left ankle: The osseous structures are intact and well aligned without acutefracture or dislocation. The ankle mortise is intact. Bone density and textureare normal. No soft tissue swelling is present. Left foot: The osseous structures are intact and well aligned without acutefracture or dislocation. The joint spaces are preserved. Bone density and texture are normal. No soft tissue swelling is present. IMPRESSION: No acute fracture or dislocation identified. Report dictated by Karla Leger M.D. (radiology assistant). Dr. BECCA Barahona have personally reviewed and interpreted this examination/study. This report was electronically signed by BECCA LYNN on 12/10/2020 11:56 AM . Ying Soto MD DIAGNOSTIC IMAG ING ORDERABLES * XR PELVIS 1 OR 2VW (12/10/2020 3:39 AM CDT) Anatomical Region Laterality Modality Pelvis Radiographic Maria Teresa ging 12/10/2020 4:15 AM CDT Impressions 12/10/2020 11:55 AM CDT IMPRESSION: No acute fracture identified. Report dictated by Karla Leger M.D. (radiology assistant). Dr. BECCA Barahona have personally reviewed and interpreted this examination/study. This report was electronically signed by BECCA LYNN ??on 12/10/2020 11:55 AM . Narrative 12/10/2020 11:55 AM CDT EXAMINATION: XR PELVIS 1 OR 2VW HISTORY: Trauma Fracture suspected COMPARISON: No prior study is available for comparison. FINDINGS: No acute fracture is identified. The femoral heads appear well-seated within their respective acetabula. The pubic symphysis is intact. Bone density and texture are normal. The sacroiliac joints are normal. Procedure Note Becca Lynn, DO - 12/10/2020 EXAMINATION: XR PELVIS 1 OR 2VW HISTORY: Trauma Fracture suspected COMPARISON: No prior study is available for comparison. FINDINGS: No acute fracture is identified. The femoral heads appear well-seated within their respective acetabula. The pubic symphysis is intact. Bone density and texture are normal. The sacroiliac joints are normal. IMPRESSION: No acute fracture identified. Report dictated by Karla Leger M.D. (radiology assistant). Dr. BECCA Barahona have personally reviewed and interpreted this examination/study. This report was electronically signed by BECCA LYNN on 12/10/2020 11:55 AM . Ying Soto MD DIAGNOSTIC IMAG ING ORDERABLES * XR CHEST 1VW PORTABLE (12/10/2020 3:38 AM CDT) Anatomical Region Laterality Modality Chest Radiographic Maria Teresa ging 12/10/2020 6:53 AM CDT Impressions 12/10/2020 11:55 AM CDT FINDINGS/IMPRESSION: There are mildly increased pulmonary marking. There is no focal consolidation, pleural effusion, or pneumothorax. The cardiac silhouette is enlarged. The mediastinal silhouette is normal. The visible bony thorax is intact. Report drafted by Karla Leger M.D. (resident) Dr. BECCA Barahona have personally reviewed and interpreted this examination/study. This report was electronically signed by BECCA LYNN ??on 12/10/2020 11:55 AM . Narrative 12/10/2020 11:55 AM CDT EXAMINATION: XR CHEST 1VW PORTABLE HISTORY: Trauma COMPARISON: None. Procedure Note Becca Lynn, - 12/10/2020 EXAMINATION: XR CHEST 1VW PORTABLE HISTORY: Trauma COMPARISON: None. FINDINGS/IMPRESSION: There are mildly increased pulmonary marking. There is no focal consolidation, pleural effusion, or pneumothorax. The cardiac silhouette is enlarged. The mediastinal silhouette is normal. The visible bonythorax is intact. Report drafted by Karla Leger M.D. (resident) Dr. BECCA Barahona have personally reviewed and interpreted this examination/study. This report was electronically signed by BECCA LYNN on 12/10/2020 11:55 AM . Ying Soto MD DIAGNOSTIC IMAG ING ORDERABLES Care Teams Cancer Genetics Assistant Relationship Specialty Start Date End Date Ran Arias MD [address] OF [facility] [place] [address] PCP - General Internal Medicine 12/28/20
--- NOTE | 2024-06-29 16:38 | ED_ITS ---
HPI - Chest Pain General Chief Complaint: Arrhythmia/Palpitations <Jelena Heart APRN - Last Filed: 06/29/24 16:40> Stated Complaint: CP/VVRD-aacjqwie-Sz of CHF <Jelena Heart APRN - Last Filed: 06/29/24 16:40> Time Seen by Provider: 06/29/24 16:30 <Jelena Heart APRN - Last Filed: 06/29/24 16:40> Focused HPI: Patient is a 39-year-old male who presents to the ER with chest pain and shortness of breath that started approximately 24 hours ago. He reports he has a history of CHF and takes a total of 120 mg of Lasix every day. Patient endorses extreme bilateral lower extremity edema that has gotten worse in the last 2-3 days. He also endorses a history of hypertension and chronic kidney disease. Patient denies any recent fevers, sore throat, headache, congestion. GENERAL: Well-appearing, well-nourished, and in no acute distress. HEAD: Normocephalic, atraumatic. CHEST: Clear to auscultation. ?No respiratory distress. Decreased lung sounds on R side. HEART: Regular rate and rhythm.?EXTREME bilateral lower edema. NEURO: ?Alert and oriented x3. Patient screened in triage and initial orders placed.? ?Additional care and disposition to be based upon?diagnostic testing and treatment. <Jelena Heart APRN - Last Filed: 06/29/24 16:40> History of Present Illness HPI narrative: Agree with the above with the following additions/corrections: Patient states he takes 40 mg p.o. furosemide b.i.d. and he has been taking this medication as prescribed, not miss any doses and he has not run out. He states he is also on other medications home has been compliant with the meds well although he does not know their names. Not on oxygen at home. He does state that previously when he has presented to the emergency department for heart failure exacerbation he been trialed on BiPAP but did not tolerate this well and had been alternatively placed on high-flow nasal cannula. Patient denies any chest pain. States the symptoms started yesterday. No fevers/chills. + Cough, non productive. States he has been having scrotal edema. No unilateral edema - it is bilateral. No hemoptysis. No recent surgery/trauma. Not on OCPs. No PE/DVT previously. Not on anticoagulation. <Elisa Rodriguez MD - Last Filed: 06/30/24 18:05> Related Data Home Medications: Home Medications ?Medication ?Instructions ?Recorded ?Confirmed ?Last Taken ?Type hydralazine 100 mg tablet 100 mg PO QID 06/30/24 06/30/24 06/29/24 History isosorbide dinitrate 30 mg tablet 30 mg PO QID 06/30/24 06/30/24 Unknown History <Jelena Heart APRN - Last Filed: 06/29/24 16:40> Allergies/Adverse Reactions: Allergies Allergy/AdvReac Type Severity Reaction Status Date / Time No Known Allergies Allergy Verified 06/29/24 16:44 <Jelena Heart APRN - Last Filed: 06/29/24 16:40> [facility] Past Medical History Medical History: Medical History Chronic renal failure Heart failure with reduced ejection fraction EF of 30 to 35% on echocardiogram in July 2021. Hypertension Hypertensive cardiomyopathy Hypertensive kidney disease with CKD stage III Tobacco use <Jelena Heart APRN - Last Filed: 06/29/24 16:40> Surgical History Surgical History: Surgical History No history of previous surgery <Jelena Heart APRN - Last Filed: 06/29/24 16:40> Family History Family History: Family History Father , at age 53. 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 He lives in [place], alone. He smokes about a pack a week and drinks on the weekends, approximately a few shots and a couple of beers. He also uses marijuana. His mother, Juanita Headley is his emergency contact. Smoking packs per day: 3 Smoking cigarettes per day: 60.0 Years smoked: 23 Smoking pack-years: 69.00 Smoking status: Current every day smoker Tobacco type: cigarettes Second hand tobacco smoke exposure: Yes Alcohol intake: never Alcohol use details: Drinks alcohol on the weekends Substance use: current Substance use type: marijuana Other substance usage details: 3 blunts a week Do You Feel Safe in your Home?: Yes Lack of Transportation: No Lack of Food: Never True Current Housing: I Have Housing Concerned About Future Housing: No Difficulty Paying Gas/Electric Bills: No Difficulty Paying for Meds: No Currently Unemployed: No Education: High School Diploma/GED Difficulty w/ Childcare or Family Care: No Living arrangements: with family Occupation/Education: occupation Spiritual care concerns: No <Jelena Heart APRN - Last Filed: 06/29/24 16:40> Exam 2 Narrative: GENERAL: well-nourished, and in no acute distress. HEAD: Normocephalic, atraumatic. EYES: Non injected, non icteric ENT: Nares clear, no rhinorrhea or epistaxis. NECK: Supple. CHEST: Speaking in full sentences. No respiratory distress. HEART: Regular rate and rhythm. S1-S2 appreciated without appreciable S3 or S4. ABDOMEN: Soft, nondistended. : Scrotal and penile edema. EXTREMITIES: Normal range of motion. 3+ bilateral lower extremity edema. SKIN: Warm, dry, no rash. NEURO: No focal deficits. Alert and oriented x3. PSYCH: Normal mood and affect. <Elisa Rodriguez MD - Last Filed: 06/30/24 18:05> Course Vital Signs Vital signs: Vital Signs Temperature 99.4 F 06/29/24 16:40 Pulse Rate 94 06/29/24 16:40 Respiratory Rate 20 06/29/24 16:40 Blood Pressure 199/57 H 06/29/24 16:40 Pulse Oximetry 100 06/29/24 16:40 Oxygen Delivery Room Air 06/29/24 16:40 Temperature 97.6 F 06/30/24 16:15 Pulse Rate 80 06/30/24 16:15 Respiratory Rate 20 06/30/24 16:15 Blood Pressure 139/94 H 06/30/24 16:15 Pulse Oximetry 97 06/30/24 16:15 Oxygen Delivery Nasal Cannula 06/30/24 08:00 Oxygen Flow Rate 2 06/30/24 08:00 <Jelena Heart APRN - Last Filed: 06/29/24 16:40> Vital Signs Temperature 99.4 F 06/29/24 16:40 Pulse Rate 94 06/29/24 16:40 Respiratory Rate 20 06/29/24 16:40 Blood Pressure 199/57 H 06/29/24 16:40 Pulse Oximetry 100 06/29/24 16:40 Oxygen Delivery Room Air 06/29/24 16:40 Temperature 97.6 F 06/30/24 16:15 Pulse Rate 80 06/30/24 16:15 Respiratory Rate 20 06/30/24 16:15 Blood Pressure 139/94 H 06/30/24 16:15 Pulse Oximetry 97 06/30/24 16:15 Oxygen Delivery Nasal Cannula 06/30/24 08:00 Oxygen Flow Rate 2 06/30/24 08:00 <Elisa Rodriguez MD - Last Filed: 06/30/24 18:05> MDM - Chest Pain MDM Narrative Medical decision making narrative: 39-year-old male past medical history heart failure presents with shortness of breath and a nonproductive cough. He also has significant edema throughout his legs and extending up to his scrotum. States he is on 40 mg b.i.d. p.o. of furosemide which he has been taking in addition to his other medications. In the emergency department he is afebrile with vital signs notable for significant hypertension, not improved on reassessment. Right upper lobe infiltrate on chest x-ray. Viral panel negative. PERC Rule Age greater than or equal to 50:0 HR greater than or equal to 100:0 O2 sat room air <95%:0 Unilateral leg swellin Hemoptysis:0 Recent surgery or trauma less than 4 wks ago requiring tx with general anesthesia:0 Prior PE or DVT:0 Hormone use (OCP, HRT or estrogenic hormone use in M/F patients): 0 Will not pursue further work up for PE given other causes more obvious/likely. PSI/PORT Score: Pneumonia Severity Index for CAP Result: 80 points -risk class III, 0.9-2.8% mortality. Outpatient versus obs admission. Will advocate for obs given other issues. Suspect/probable simple pneumonia [versus complex = aspiration, gram negative, staphylococcal, legionnaire's, TB, fungal, empyema, abscess] DRIP Score - predicts risk for CAP d/t drug-resistant pathogens: 1 point for underlying pulm disease Given this will be an inpatient/floor patient, will start ceftriaxone for potential drug resistant strep + doxycycline (if low DRIP). Normocytic anemia, stable from previous. NSTEMI given elevated troponin, although less than typical. Aspiring and 3 hr troponin ordered. BNP also elevated significantly more than typical. Patient clearly has acute exacerbation of chronic heart failure. He has anisarca. NTG given for possibility of degree of flash pulmonary edema although he is not hypoxic. Also given Lasix IV. He does have an MIHAI on CKD so will need to be cautious. Discussed patient with on-call hospitalist Dr Beaulieu who will make a decision about continuing or discontinuing antibiotics (or defer to day team if needed). Advised wearing nitro paste and ordering scheduled IV furosemide 40 mg b.i.d. and these are both performed. Patient will be IMU given hypertensive emergency/urgency and acute on chronic heart failure. <Elisa Rodriguez MD - Last Filed: 06/30/24 18:05> Differential Diagnosis Differential diagnosis: Likely st elevation myocardial infarction and other (heart failure exacerbation, pneumonia; bronchitis; acute viral syndrome) <Elisa Rodriguez MD - Last Filed: 06/30/24 18:05> Lab Data Attestation: I reviewed the patient's lab results. <Elisa Rodriguez MD - Last Filed: 06/30/24 18:05> Result diagrams: 06/29/24 21:44 06/29/24 21:44 <Jelena Heart APRN - Last Filed: 06/29/24 16:40> Labs: Lab Results 06/29/24 06/29/24 06/30/24 Range/Units 19:37 21:44 00:46 WBC 5.2 (4.5-10.0) K/mm3 RBC 4.68 (4.6-6.20) M/mm3 Hgb 12.1 L (14.0-18.0) g/dL Hct 38.7 L (42.0-52.0) % MCV 82.7 (80-100) fl MCH 25.9 L (26-34) pg MCHC 31.3 L (32-36) g/dl RDW 19.1 H (11.5-14.5) % Plt Count 325 (150-375) k/mm3 MPV 9.6 (7.4-10.4) fl Immature Gran % (Auto) 0.4 (0-0.5) % Neut % (Auto) 71.5 (45.5-73.1) % Lymph % (Auto) 18.5 (18.3-44.2) % Hickman % (Auto) 6.5 (2.6-8.5) % Eos % (Auto) 2.3 (0-4.4) % Baso % (Auto) 0.8 (0.2-1.2) % Lymph # (Auto) 0.97 (0.9-3.2) K/mm3 Hickman # (Auto) 0.3 (0.1-0.6) K/mm3 Eos # (Auto) 0.1 (0-0.3) K/mm3 Baso # (Auto) 0.0 (0.0-0.1) K/mm3 Abs Immat Gran (auto) 0.02 (0.00-0.031) K/mm3 Absolute Neuts (auto) 3.7 (1.3-6.7) K/mm3 Absolute Nucleated RBC 0.020 H (0.0-0.012) K/mm3 Nucleated RBC % 0.4 H (0.0-0.2) % PT 16.4 H (11.1-14.7) Seconds INR 1.3 APTT 26.4 (22.3-36.8) Seconds Sodium 137 (137-145) mmol/L Potassium 4.2 (3.4-5.0) mmol/L Chloride 105 (98-107) mmol/L Carbon Dioxide 20 L (22-30) mmol/L Anion Gap 12 (4-12) mmol/L BUN 41 H D (9-20) mg/dL Creatinine 3.24 H (0.7-1.3) mg/dL Estim Creat Clear Calc 31 ml/min Estimated GFR 26 L (59 - ) Glucose 108 (65-110) mg/dL Calcium 8.9 (8.4-10.2) mg/dL Magnesium 2.3 (1.6-2.3) mg/dL Total Bilirubin 1.3 (0.2-1.3) mg/dL AST 24 (17-59) U/L ALT 33 (6-50) U/L Alkaline Phosphatase 113 (38-126) U/L Troponin I 0.067 H* 0.072 H* (0.000-0.034) ng/mL NT-Pro-B Natriuret Pep 79513 H (19.9-100) pg/mL Total Protein 8.0 (6.3-8.2) g/dL Albumin 3.7 (3.5-5.1) g/dL Procalcitonin 0.3 ng/mL Urine Color (Yellow) Urine Appearance (Clear) Urine pH (5.0-9.0) Ur Specific [place] (1.001-1.035) Urine Protein (Negative) mg/dL Urine Glucose (UA) (Negative) mg/dL Urine Ketones (Negative) mg/dL Ur Blood (Man) (Negative) Urine Nitrate (Negative) Urine Bilirubin (Negative) Urine Urobilinogen (<2.0) mg/dL Add Ur Microanalysis Leukocyte Esterase Rfl (Negative) KATIE/UL Urine RBC (0-2) /hpf Urine WBC (0-3) /hpf Ur Squamous Epith Cells (Few) /hpf Urine Bacteria /hpf Urine Casts Urine Opiates Screen (Negative) Urine Methadone Screen (Negative) Ur Barbiturates Screen (Negative) Ur Phencyclidine Scrn (Negative) Ur Amphetamine Screen (Negative) U Benzodiazepines Scrn (Negative) Urine Cocaine Screen (Negative) U Cannabinoids Screen (Negative) Influenza A (RT-PCR) Negative (Negative) Influenza B (RT-PCR) Negative (Negative) RSV (RT-PCR) Negative (Negative) SARS-CoV-2 RNA (RT-PCR) Negative (Negative) 06/30/24 Range/Units 01:23 WBC (4.5-10.0) K/mm3 RBC (4.6-6.20) M/mm3 Hgb (14.0-18.0) g/dL Hct (42.0-52.0) % MCV (80-100) fl MCH (26-34) pg MCHC (32-36) g/dl RDW (11.5-14.5) % Plt Count (150-375) k/mm3 MPV (7.4-10.4) fl Immature Gran % (Auto) (0-0.5) % Neut % (Auto) (45.5-73.1) % Lymph % (Auto) (18.3-44.2) % Hickman % (Auto) (2.6-8.5) % Eos % (Auto) (0-4.4) % Baso % (Auto) (0.2-1.2) % Lymph # (Auto) (0.9-3.2) K/mm3 Hickman # (Auto) (0.1-0.6) K/mm3 Eos # (Auto) (0-0.3) K/mm3 Baso # (Auto) (0.0-0.1) K/mm3 Abs Immat Gran (auto) (0.00-0.031) K/mm3 Absolute Neuts (auto) (1.3-6.7) K/mm3 Absolute Nucleated RBC (0.0-0.012) K/mm3 Nucleated RBC % (0.0-0.2) % PT (11.1-14.7) Seconds INR APTT (22.3-36.8) Seconds Sodium (137-145) mmol/L Potassium (3.4-5.0) mmol/L Chloride (98-107) mmol/L Carbon Dioxide (22-30) mmol/L Anion Gap (4-12) mmol/L BUN (9-20) mg/dL Creatinine (0.7-1.3) mg/dL Estim Creat Clear Calc ml/min Estimated GFR (59 - ) Glucose (65-110) mg/dL Calcium (8.4-10.2) mg/dL Magnesium (1.6-2.3) mg/dL Total Bilirubin (0.2-1.3) mg/dL AST (17-59) U/L ALT (6-50) U/L Alkaline Phosphatase (38-126) U/L Troponin I (0.000-0.034) ng/mL NT-Pro-B Natriuret Pep (19.9-100) pg/mL Total Protein (6.3-8.2) g/dL Albumin (3.5-5.1) g/dL Procalcitonin ng/mL Urine Color Yellow (Yellow) Urine Appearance Clear (Clear) Urine pH 5.5 (5.0-9.0) Ur Specific [place] 1.018 (1.001-1.035) Urine Protein 4+ H (Negative) mg/dL Urine Glucose (UA) Negative (Negative) mg/dL Urine Ketones Negative (Negative) mg/dL Ur Blood (Man) Negative (Negative) Urine Nitrate Negative (Negative) Urine Bilirubin Negative (Negative) Urine Urobilinogen 1.0 (<2.0) mg/dL Add Ur Microanalysis Reviewed Leukocyte Esterase Rfl Negative (Negative) KATIE/UL Urine RBC 0-2 (0-2) /hpf Urine WBC 0-5 (0-3) /hpf Ur Squamous Epith Cells Occasional (Few) /hpf Urine Bacteria None seen /hpf Urine Casts 11-20 Urine Opiates Screen Negative (Negative) Urine Methadone Screen Negative (Negative) Ur Barbiturates Screen Negative (Negative) Ur Phencyclidine Scrn Negative (Negative) Ur Amphetamine Screen Negative (Negative) U Benzodiazepines Scrn Negative (Negative) Urine Cocaine Screen Negative (Negative) U Cannabinoids Screen Positive A (Negative) Influenza A (RT-PCR) (Negative) Influenza B (RT-PCR) (Negative) RSV (RT-PCR) (Negative) SARS-CoV-2 RNA (RT-PCR) (Negative) <Jelena Heart, [employer] TENDER - Last Filed: 06/29/24 16:40> Lab Results 06/29/24 06/29/24 06/30/24 Range/Units 19:37 21:44 00:46 WBC 5.2 (4.5-10.0) K/mm3 RBC 4.68 (4.6-6.20) M/mm3 Hgb 12.1 L (14.0-18.0) g/dL Hct 38.7 L (42.0-52.0) % MCV 82.7 (80-100) fl MCH 25.9 L (26-34) pg MCHC 31.3 L (32-36) g/dl RDW 19.1 H (11.5-14.5) % Plt Count 325 (150-375) k/mm3 MPV 9.6 (7.4-10.4) fl Immature Gran % (Auto) 0.4 (0-0.5) % Neut % (Auto) 71.5 (45.5-73.1) % Lymph % (Auto) 18.5 (18.3-44.2) % Hickman % (Auto) 6.5 (2.6-8.5) % Eos % (Auto) 2.3 (0-4.4) % Baso % (Auto) 0.8 (0.2-1.2) % Lymph # (Auto) 0.97 (0.9-3.2) K/mm3 Hickman # (Auto) 0.3 (0.1-0.6) K/mm3 Eos # (Auto) 0.1 (0-0.3) K/mm3 Baso # (Auto) 0.0 (0.0-0.1) K/mm3 Abs Immat Gran (auto) 0.02 (0.00-0.031) K/mm3 Absolute Neuts (auto) 3.7 (1.3-6.7) K/mm3 Absolute Nucleated RBC 0.020 H (0.0-0.012) K/mm3 Nucleated RBC % 0.4 H (0.0-0.2) % PT 16.4 H (11.1-14.7) Seconds INR 1.3 APTT 26.4 (22.3-36.8) Seconds Sodium 137 (137-145) mmol/L Potassium 4.2 (3.4-5.0) mmol/L Chloride 105 (98-107) mmol/L Carbon Dioxide 20 L (22-30) mmol/L Anion Gap 12 (4-12) mmol/L BUN 41 H D (9-20) mg/dL Creatinine 3.24 H (0.7-1.3) mg/dL Estim Creat Clear Calc 31 ml/min Estimated GFR 26 L (59 - ) Glucose 108 (65-110) mg/dL Calcium 8.9 (8.4-10.2) mg/dL Magnesium 2.3 (1.6-2.3) mg/dL Total Bilirubin 1.3 (0.2-1.3) mg/dL AST 24 (17-59) U/L ALT 33 (6-50) U/L Alkaline Phosphatase 113 (38-126) U/L Troponin I 0.067 H* 0.072 H* (0.000-0.034) ng/mL NT-Pro-B Natriuret Pep 46116 H (19.9-100) pg/mL Total Protein 8.0 (6.3-8.2) g/dL Albumin 3.7 (3.5-5.1) g/dL Procalcitonin 0.3 ng/mL Urine Color (Yellow) Urine Appearance (Clear) Urine pH (5.0-9.0) Ur Specific [place] (1.001-1.035) Urine Protein (Negative) mg/dL Urine Glucose (UA) (Negative) mg/dL Urine Ketones (Negative) mg/dL Ur Blood (Man) (Negative) Urine Nitrate (Negative) Urine Bilirubin (Negative) Urine Urobilinogen (<2.0) mg/dL Add Ur Microanalysis Leukocyte Esterase Rfl (Negative) KATIE/UL Urine RBC (0-2) /hpf Urine WBC (0-3) /hpf Ur Squamous Epith Cells (Few) /hpf Urine Bacteria /hpf Urine Casts Urine Opiates Screen (Negative) Urine Methadone Screen (Negative) Ur Barbiturates Screen (Negative) Ur Phencyclidine Scrn (Negative) Ur Amphetamine Screen (Negative) U Benzodiazepines Scrn (Negative) Urine Cocaine Screen (Negative) U Cannabinoids Screen (Negative) Influenza A (RT-PCR) Negative (Negative) Influenza B (RT-PCR) Negative (Negative) RSV (RT-PCR) Negative (Negative) SARS-CoV-2 RNA (RT-PCR) Negative (Negative) 06/30/24 Range/Units 01:23 WBC (4.5-10.0) K/mm3 RBC (4.6-6.20) M/mm3 Hgb (14.0-18.0) g/dL Hct (42.0-52.0) % MCV (80-100) fl MCH (26-34) pg MCHC (32-36) g/dl RDW (11.5-14.5) % Plt Count (150-375) k/mm3 MPV (7.4-10.4) fl Immature Gran % (Auto) (0-0.5) % Neut % (Auto) (45.5-73.1) % Lymph % (Auto) (18.3-44.2) % Hickman % (Auto) (2.6-8.5) % Eos % (Auto) (0-4.4) % Baso % (Auto) (0.2-1.2) % Lymph # (Auto) (0.9-3.2) K/mm3 [place]ickman # (Auto) (0.1-0.6) K/mm3 Eos # (Auto) (0-0.3) K/mm3 Baso # (Auto) (0.0-0.1) K/mm3 Abs Immat Gran (auto) (0.00-0.031) K/mm3 Absolute Neuts (auto) (1.3-6.7) K/mm3 Absolute Nucleated RBC (0.0-0.012) K/mm3 Nucleated RBC % (0.0-0.2) % PT (11.1-14.7) Seconds INR APTT (22.3-36.8) Seconds Sodium (137-145) mmol/L Potassium (3.4-5.0) mmol/L Chloride (98-107) mmol/L Carbon Dioxide (22-30) mmol/L Anion Gap (4-12) mmol/L BUN (9-20) mg/dL Creatinine (0.7-1.3) mg/dL Estim Creat Clear Calc ml/min Estimated GFR (59 - ) Glucose (65-110) mg/dL Calcium (8.4-10.2) mg/dL Magnesium (1.6-2.3) mg/dL Total Bilirubin (0.2-1.3) mg/dL AST (17-59) U/L ALT (6-50) U/L Alkaline Phosphatase (38-126) U/L Troponin I (0.000-0.034) ng/mL NT-Pro-B Natriuret Pep (19.9-100) pg/mL Total Protein (6.3-8.2) g/dL Albumin (3.5-5.1) g/dL Procalcitonin ng/mL Urine Color Yellow (Yellow) Urine Appearance Clear (Clear) Urine pH 5.5 (5.0-9.0) Ur Specific [place] 1.018 (1.001-1.035) Urine Protein 4+ H (Negative) mg/dL Urine Glucose (UA) Negative (Negative) mg/dL Urine Ketones Negative (Negative) mg/dL Ur Blood (Man) Negative (Negative) Urine Nitrate Negative (Negative) Urine Bilirubin Negative (Negative) Urine Urobilinogen 1.0 (<2.0) mg/dL Add Ur Microanalysis Reviewed Leukocyte Esterase Rfl Negative (Negative) KATIE/UL Urine RBC 0-2 (0-2) /hpf Urine WBC 0-5 (0-3) /hpf Ur Squamous Epith Cells Occasional (Few) /hpf Urine Bacteria None seen /hpf Urine Casts 11-20 Urine Opiates Screen Negative (Negative) Urine Methadone Screen Negative (Negative) Ur Barbiturates Screen Negative (Negative) Ur Phencyclidine Scrn Negative (Negative) Ur Amphetamine Screen Negative (Negative) U Benzodiazepines Scrn Negative (Negative) Urine Cocaine Screen Negative (Negative) U Cannabinoids Screen Positive A (Negative) Influenza A (RT-PCR) (Negative) Influenza B (RT-PCR) (Negative) RSV (RT-PCR) (Negative) SARS-CoV-2 RNA (RT-PCR) (Negative) <Elisa Rodriguez MD - Last Filed: 06/30/24 18:05> ABG Data ABG results: 06/29/24 21:51 Puncture Site Right radial ABG pH 7.399 ABG pCO2 35.9 ABG pO2 53.1 L ABG PO2/FiO2 Ratio 2.53 ABG HCO3 21.7 L ABG O2 Saturation 87.8 L* ABG O2 Content 14.6 L ABG Base Excess -2.6 A-a Gradient 53.6 Oxyhemoglobin 83.5 L* Total Hemoglobin 12.4 O2 Delivery Device Not Reportable O2 Liters/Min Not Reportable FiO2 21 <Jelena Heart, [employer] TENDER - Last Filed: 06/29/24 16:40> 06/29/24 21:51 Puncture Site Right radial ABG pH 7.399 ABG pCO2 35.9 ABG pO2 53.1 L ABG PO2/FiO2 Ratio 2.53 ABG HCO3 21.7 L ABG O2 Saturation 87.8 L* ABG O2 Content 14.6 L ABG Base Excess -2.6 A-a Gradient 53.6 Oxyhemoglobin 83.5 L* Total Hemoglobin 12.4 O2 Delivery Device Not Reportable O2 Liters/Min Not Reportable FiO2 21 <Elisa Rodriguez MD - Last Filed: 06/30/24 18:05> Attestation: I personally reviewed and interpreted this ABG as follows: <Elisa Rodriguez MD - Last Filed: 06/30/24 18:05> Interpretation: No anion gap. Metabolic acidosis and respiratory alkalosis <Elisa Rodriguez MD - Last Filed: 06/30/24 18:05> Imaging Data Attestation: I personally reviewed and interpreted this imaging study as follows: < Elisa Rodriguez MD - Last Filed: 06/30/24 18:05> My impression: Although not appreciated on my 1st independent interpretation of chest x- ray, I can appreciate that there is possibly some infiltrate in the R upper lobe <Elisa Rodriguez MD - Last Filed: 06/30/24 18:05> Radiologist's impression: IMPRESSION: Early right upper lobe infiltrate. <Elisa Rodriguez MD - Last Filed: 06/30/24 18:05> ECG Data EKG #1: Attestation: I personally reviewed and interpreted this ECG as follows: < Elisa Rodriguez MD - Last Filed: 06/30/24 18:05> ECG completion date: 06/29/24 <Elisa Rodriguez MD - Last Filed: 06/30/24 18:05> ECG completion time: 16:38 <Elisa Rodriguez MD - Last Filed: 06/30/24 18:05> Interpretation: Sinus tachycardia at a rate of 104 beats per minute. CA interval 181. QRS 118. QT/QTC 440/500 - prolonged. Patient has questionable U waves on EKG, though namely appreciated in V6 (versus biphasic T wave). There is questionable ST depression in lead V6 however it is not present in contiguous leads V5. <Elisa Rodriguez MD - Last Filed: 06/30/24 18:05> EKG #2: Attestation: I personally reviewed and interpreted this ECG as follows: < Elisa Rodriguez MD - Last Filed: 06/30/24 18:05> ECG completion date: 06/29/24 <Elisa Rodriguez MD - Last Filed: 06/30/24 18:05> ECG completion time: 19:33 <Elisa Rodriguez MD - Last Filed: 06/30/24 18:05> Interpretation: Normal sinus rhythm at a rate of 96 beats per minute. CA interval 176. QRS 118. QT/QTC 382/436 (now improved). Similar appearance as initial EKG though ST depression in V6 no longer present. <Elisa Rodriguez MD - Last Filed: 06/30/24 18:05> Discharge Plan Discharge Clinical Impression: Consolidation of right upper lobe, Normocytic anemia, Non-ST elevation [place] (NSTEMI), Acute exacerbation of chronic heart failure, Acute kidney injury superimposed on CKD, Anasarca, Hypertensive heart failure <Jelena Heart APRN - Last Filed: 06/29/24 16:40> Patient Disposition: Still a Patient <Jelena Heart APRN - Last Filed: 06/29/24 16:40> Condition: Stable <Jelena Heart APRN - Last Filed: 06/29/24 16:40> Time of Disposition: 00:41 <Jelena Heart APRN - Last Filed: 06/29/24 16:40> 00:41 <Elisa Rodriguez MD - Last Filed: 06/30/24 18:05>
[2024-06-29 16:40] VITALS: BP 199/57; PULSE 94; RESP 20; TEMP 37.4; O2SAT 100
--- NOTE | 2024-06-29 19:33 | ECG_ITS ---
Test Date: 2024-06-29 19:33:16 Measurements Intervals [place] Rate: 96 P: 29 OK: 176 QRS: 268 QRSD: 118 T: 88 QT: 382 QTc: 484 Interpretive Statements SINUS RHYTHM LEFT ATRIAL ENLARGEMENT INTRAVENTRICULAR CONDUCTION DELAY ANTEROSEPTAL MYOCARDIAL INFARCTION , OF INDETERMINATE AGE BORDERLINE T WAVE ABNORMALITY- HIGH LATERAL LEADS BASELINE ARTIFACT- I, III, AVL ABNORMAL ECG Compared to ECG 06/29/2024 16:38:13 HEART RATE HAS DECREASED Electronically Signed On 06-30-2024 13:33:00 PRESS SETTER by Cholo Phipps D.O.
[2024-06-29 19:40] VITALS: BP 198/156; PULSE 97; RESP 17; TEMP 36.7; O2SAT 100
--- NOTE | 2024-06-29 20:00 | PC.NURSE ---
clinical writer was asked to attempt to draw blood on pt after multiple unsuccessful attempts by coworkers. clinical writer was unable to obtain blood and notified supervisor jewelry department Kelly, who called phlebotomy
[2024-06-29 20:30] LABS: Influenza A QL RT-PCR Negative (Negative); Influenza B QL RT-PCR Negative (Negative); RSV RNA, RT-PCR Negative (Negative); SARS-CoV-2 RNA PCR Negative (Negative)
[2024-06-29 20:45] VITALS: BP 199/57; PULSE 94; RESP 20; TEMP 37.4; O2SAT 100
[2024-06-29 20:53] VITALS: BP 183/162; PULSE 116; RESP 19; O2SAT 97
--- OUTSIDE RECORDS SUMMARY | 2024-06-29 20:56 | XMS_ITS | Referral Summary ---
Author Organization [facility] [employer] Address [address] [place] [address] Care Team Providers Care Trimmer And Reinforcer Name Role Phone Ran Arias MD Primary Care Provider [phone] Source Comments [facility],non-owned Affiliates and Associated Physician Practices is amultiple site organization consisting of ambulatory clinics and hospital sitesin [place], [place], [place] and [place]. This disclosure is being madepursuant to the Care Everywhere program and may not contain all information available regarding this patient. Last updated 18.[facility] [employer] Allergies No known active allergies Medications * [...] 8:46 AM 12/12/2020 8:46 PM Care Teams Trimmer And Reinforcer Relationship Specialty Start Date End Date Ran Arias MD [address] OF [facility] [place] [address] PCP - General Internal Medicine 12/28/20
--- OUTSIDE RECORDS SUMMARY | 2024-06-29 20:56 | XMS_ITS | Referral Summary ---
Author Organization [facility] [address] Address [address] [place] [address] Care Team Providers Care Independent Beauty Consultant Name Role Phone Vicente Dickens MD Primary Care Provider [phone] Arley Orona MD Unavailable [phone] Encounters Date Type Department Care Team Description 05/27/2024 TCC Subsequent Outreach [facility] [address] [place] [phone] Colin Christian, RN 05/26/2024 SHOP/CHAP Initial Eligibility Review [facility] OP CASE MANAGEMENT [address] [place] [id number] Aby Paul RN 05/22/2024 1:44 AM INCOME AUDITOR - 05/25/2024 6:33 PM INCOME AUDITOR Hospital Encounter [facility] 1 [place] [address] New Patel MD Freilich, Michelle Amanda, MD Patel, Kieran, MD Anasarca (Primary Dx); Acute on chronic combined systolic and diastolic congestive heart failure (CMS/HCC) (HCC); Hypertensive crisis Discharge Disposition: Left Against Medical Advice 05/17/2024 TCC Subsequent Outreach [facility] [address] [place] [address] [phone] Colin Christian, RN 05/10/2024 Telephone [facility] Medical Group Primary Care [address] [place] [phone] Vicente Dickens MD KAITLYN Questions 05/10/2024 Telephone [facility] Medical Group Nephrology at [place] [id number] [phone] Marcus House MD 05/10/2024 TCC Subsequent Outreach [facility] [address] [place] [phone] Colin Christian RN 05/02/2024 3:59 AM INCOME AUDITOR - 05/09/2024 2:34 PM INCOME AUDITOR Hospital Encounter [place] [address] Med Surg [facility] [place] [address] Alfred Thompson DO Volker[place], MD Teja Sims, [...] Initial Eligibility Review [facility] [address] [place] [phone] Susie Witt NP 04/28/2024 TCC Subsequent Outreach [facility] [address] [place] [phone] Colin Christian RN 04/19/2024 TCC Subsequent Outreach [facility] [address] [place] [phone] Colin Christian RN 04/16/2024 TCC Initial Eligibility Review [facility] [address] [place] [phone] Susie Witt NP 04/14/2024 9:14 AM INCOME AUDITOR - 04/16/2024 3:00 PM INCOME AUDITOR Hospital Encounter [address] [phone] Simon Vera MD [facility] Harjit Zhou, Elias Still MD Shortness of breath (Primary Dx); Acute on chronic systolic CHF (congestive heart failure) ([facility]) ([facility]); Stage 3b chronic kidney disease ([facility]); Chronic systolic heart failure ([facility]) ([facility]) Discharge Disposition: Discharge to home [...] He never did get appointment with the case packer and sealer ER brigitte Mckeon referred him to Immunizations [...] drink = 0.6 oz pur e alcohol) [facility] Utilities Answer Date Recorded In the past 12 months has [employer], [employer], oil, or water [employer] threatened to shut off services in your [...] How often do you attend chur or zoroastrian services? More than 4 times per year 05/25/2024 Do you belong to any clubs o r organizations such as uatsdin groups, unions, fraternal or athletic groups, or [...] were you homeless or living in a care home (including now)? No 05/25/2024 Personal Safety Answer Date Recorded Have you ever been in or are you currently in a harmful physical or emotional relationship or is someone making you feel afraid or unsafe? Denies 05/21/2024 Sex and Gender Information Value Date Recorded Sex Assigned at Not on file Legal Sex Male 5:49 PM INCOME AUDITOR Gender Identity Not on file Sexual Orientation Not on file Last Filed Vital Signs Vital Sign Reading Time Taken Comments Blood Pressure 179/132 05/25/2024 3:25 PM INCOME AUDITOR Pulse 71 05/25/2024 3:25 PM INCOME AUDITOR Temperature 36.6 ??C (97.8 ??F) 05/25/2024 3:25 PM CS T Respiratory Rate 20 05/25/2024 3:25 PM INCOME AUDITOR Oxygen Saturation 100% 05/25/2024 3:25 PM INCOME AUDITOR Inhaled Oxygen Concentration - - Weight 95.6 kg (210 lb 12.8 oz) 05/25/2024 4:29 AM INCOME AUDITOR Height 182.9 cm (6') 05/22/2024 5:33 AM INCOME AUDITOR Body Mass Index 28.59 05/22/2024 5:33 AM INCOME AUDITOR Plan of Treatment Not on file Procedures Procedure Name Priority Date/Time Associated Diagnosis Comments EGFR Routine 05/24/2024 8:10 PM INCOME AUDITOR CBC WITHOUT DIFFERENTIAL Routine 05/24/2024 8:10 PM INCOME AUDITOR MAGNESIUM Routine 05/24/2024 8:10 PM INCOME AUDITOR BASIC METABOLIC PANEL Routine 05/24/2024 8:10 PM INCOME AUDITOR EGFR Routine 05/23/2024 10:53 PM INCOME AUDITOR CBC WITHOUT DIFFERENTIAL Routine 05/23/2024 10:53 PM INCOME AUDITOR MAGNESIUM Routine 05/23/2024 10:53 PM INCOME AUDITOR BASIC METABOLIC PANEL Routine 05/23/2024 10:53 PM INCOME AUDITOR EGFR Timed 05/23/2024 9:00 AM INCOME AUDITOR PROTEIN, URINE, 24 HOUR RESULT Timed 05/23/2024 9:00 AM INCOME AUDITOR VOLUME AND PERIOD, URINE, 24 HOUR Timed 05/23/2024 9:00 AM INCOME AUDITOR CREATININE CLEARANCE, URINE, 24 HOUR RESULT Timed 05/23/2024 9:00 AM INCOME AUDITOR CREATININE Timed 05/23/2024 9:00 AM INCOME AUDITOR CREATININE CLEARANCE, URINE, 24 HOUR Timed 05/23/2024 9:00 AM INCOME AUDITOR EGFR Routine 05/22/2024 8:21 PM INCOME AUDITOR FOLATE Routine 05/22/2024 8:21 PM INCOME AUDITOR VITAMIN B12 Routine 05/22/2024 8:21 PM INCOME AUDITOR FERRITIN Routine 05/22/2024 8:21 PM INCOME AUDITOR CBC WITHOUT DIFFERENTIAL Routine 05/22/2024 8:21 PM INCOME AUDITOR MAGNESIUM Routine 05/22/2024 8:21 PM INCOME AUDITOR BASIC METABOLIC PANEL Routine 05/22/2024 8:21 PM INCOME AUDITOR URINALYSIS, MICROSCOPIC ONLY Routine 05/22/2024 7:49 AM INCOME AUDITOR ALBUMIN CREATININE RATIO, URINE Routine 05/22/2024 7:49 AM INCOME AUDITOR SODIUM, URINE, RANDOM Timed 05/22/2024 7:49 AM INCOME AUDITOR URINALYSIS AND REFLEX TO MICROSCOPIC AND CULTURE Routine 05/22/2024 7:49 AM INCOME AUDITOR EGFR STAT 05/22/2024 6:14 AM INCOME AUDITOR CREATININE STAT 05/22/2024 6:14 AM INCOME AUDITOR FERRITIN STAT 05/22/2024 6:14 AM INCOME AUDITOR LIPID PANEL STAT 05/22/2024 6:14 AM INCOME AUDITOR IRON PROFILE W/ IBC STAT 05/22/2024 6 :14 AM INCOME AUDITOR RPR STAT 05/22/2024 6:14 AM INCOME AUDITOR HIV 1/2 ANTIBODY PLUS P24 ANTIGEN STAT 05/22/2024 6:14 AM INCOME AUDITOR TROPONIN I HIGH-SENSITIVITY 4-HOUR Timed 05/22/2024 2:15 AM INCOME AUDITOR OR CRITICAL CARE ILL/INJURED PATIENT INIT 30-74 MIN Routine 05/22/2024 1:57 AM INCOME AUDITOR EGFR STAT 05/21/2024 10:13 PM INCOME AUDITOR DIFFERENTIAL AUTO STAT 05/21/2024 10: 13 PM INCOME AUDITOR PRO B-TYPE NATRIURETIC PEPTIDE STAT 05/21/2024 10:13 PM INCOME AUDITOR TROPONIN I HIGH-SENSITIVITY SERIES (BASELINE, 2HR, 4HR, 6HR) STAT 05/21/2024 10:13 PM INCOME AUDITOR CBC WITH AUTO DIFFERENTIAL STAT 05/21/2024 10:13 PM INCOME AUDITOR COMPREHENSIVE METABOLIC PANEL STAT 05/21/2024 10:13 PM INCOME AUDITOR XR CHEST PA LATERAL 2 VIEWS ED 05/21/2024 8:12 PM INCOME AUDITOR ECG 12-LEAD STAT 05/21/2024 8:11 PM INCOME AUDITOR EGFR Routine 05/09/2024 5:25 AM INCOME AUDITOR DIFFERENTIAL AUTO Routine 05/09/2024 5:2 5 AM INCOME AUDITOR BASIC METABOLIC PANEL Routine 05/09/2024 5:25 AM INCOME AUDITOR CBC WITH AUTO DIFFERENTIAL Routine 05/09/2024 5:25 AM INCOME AUDITOR MAGNESIUM Routine 05/09/2024 5:25 AM INCOME AUDITOR PHOSPHORUS Routine 05/09/2024 5:25 AM INCOME AUDITOR EGFR Routine 05/08/2024 5:20 AM INCOME AUDITOR DIFFERENTIAL AUTO Routine 05/08/2024 5:2 0 AM INCOME AUDITOR BASIC METABOLIC PANEL Routine 05/08/2024 5:20 AM INCOME AUDITOR CBC WITH AUTO DIFFERENTIAL Routine 05/08/2024 5:20 AM INCOME AUDITOR MAGNESIUM Routine 05/08/2024 5:20 AM INCOME AUDITOR PHOSPHORUS Routine 05/08/2024 5:20 AM INCOME AUDITOR EGFR Routine 05/07/2024 3:12 AM INCOME AUDITOR DIFFERENTIAL AUTO Routine 05/07/2024 3:1 2 AM INCOME AUDITOR BASIC METABOLIC PANEL Routine 05/07/2024 3:12 AM INCOME AUDITOR CBC WITH AUTO DIFFERENTIAL Routine 05/07/2024 3:12 AM INCOME AUDITOR MAGNESIUM Routine 05/07/2024 3:12 AM INCOME AUDITOR PHOSPHORUS Routine 05/07/2024 3:12 AM INCOME AUDITOR EGFR Routine 05/06/2024 3:28 AM INCOME AUDITOR DIFFERENTIAL AUTO Routine 05/06/2024 3:2 8 AM INCOME AUDITOR VITAMIN D 25 HYDROXY Routine 05/06/2024 3:28 AM INCOME AUDITOR PTH Routine 05/06/2024 3:28 AM INCOME AUDITOR BASIC METABOLIC PANEL Routine 05/06/2024 3:28 AM INCOME AUDITOR CBC WITH AUTO DIFFERENTIAL Routine 05/06/2024 3:28 AM INCOME AUDITOR MAGNESIUM Routine 05/06/2024 3:28 AM INCOME AUDITOR PHOSPHORUS Routine 05/06/2024 3:28 AM INCOME AUDITOR TRANSTHORACIC ECHO (TTE) COMPLETE W DOPPLER/CF W CONTRAST Routine 05/05/2024 10:40 AM INCOME AUDITOR EGFR Routine 05/05/2024 1:45 AM INCOME AUDITOR MAGNESIUM Routine 05/05/2024 1:45 AM INCOME AUDITOR PHOSPHORUS Routine 05/05/2024 1:45 AM INCOME AUDITOR DIFFERENTIAL AUTO Routine 05/05/2024 1:4 5 AM INCOME AUDITOR BASIC METABOLIC PANEL Routine 05/05/2024 1:45 AM INCOME AUDITOR CBC WITH AUTO DIFFERENTIAL Routine 05/05/2024 1:45 AM INCOME AUDITOR VOLUME AND PERIOD, URINE, 24 HOUR Timed 05/04/2024 9:41 AM INCOME AUDITOR METANEPHRINES, URINE, 24 HOUR RESULT Timed 05/04/2024 8:45 AM INCOME AUDITOR METANEPHRINES, URINE, 24 HOUR Timed 05/04/2024 8:45 AM INCOME AUDITOR EGFR Routine 05/04/2024 3:45 AM INCOME AUDITOR BASIC METABOLIC PANEL Routine 05/04/2024 3:45 AM INCOME AUDITOR DIFFERENTIAL AUTO Routine 05/04/2024 3:4 5 AM INCOME AUDITOR CBC WITH AUTO DIFFERENTIAL Routine 05/04/2024 3:45 AM INCOME AUDITOR MAGNESIUM Routine 05/04/2024 3:45 AM INCOME AUDITOR PHOSPHORUS Routine 05/04/2024 3:45 AM INCOME AUDITOR US RENAL DOPPLER IP Routine 05/03/2024 9:40 AM INCOME AUDITOR US KIDNEY COMPLETE IP Routine 05/03/2024 7: 27 AM INCOME AUDITOR EGFR Routine 05/03/2024 5:28 AM INCOME AUDITOR DIFFERENTIAL AUTO Routine 05/03/2024 5:2 8 AM INCOME AUDITOR PHOSPHORUS Routine 05/03/2024 5:28 AM INCOME AUDITOR MAGNESIUM Routine 05/03/2024 5:28 AM INCOME AUDITOR CBC WITH AUTO DIFFERENTIAL Routine 05/03/2024 5:28 AM INCOME AUDITOR COMPREHENSIVE METABOLIC PANEL Routine 05/03/2024 5:28 AM INCOME AUDITOR PROTEIN / CREATININE RATIO, URINE, RANDOM Routine 05/02/2024 5:41 PM INCOME AUDITOR EGFR Routine 05/02/2024 4:21 PM INCOME AUDITOR ERYTHROCYTE SEDIMENTATION RATE Routine 05/02/2024 4:21 PM INCOME AUDITOR CRP (ACUTE PHASE) Routine 05/02/2024 4:2 1 PM INCOME AUDITOR D-DIMER, QUANTITATIVE Routine 05/02/2024 4:21 PM INCOME AUDITOR RENIN ACTIVITY Routine 05/02/2024 4:21 PM INCOME AUDITOR ALDOSTERONE Routine 05/02/2024 4:21 PM INCOME AUDITOR CORTISOL Timed 05/02/2024 4:21 PM INCOME AUDITOR METANEPHRINES, FRACTIONATED FREE, BLOOD Routine 05/02/2024 4:21 PM INCOME AUDITOR MAGNESIUM Routine 05/02/2024 4:21 PM INCOME AUDITOR BASIC METABOLIC PANEL Routine 05/02/2024 4:21 PM INCOME AUDITOR HIV 1/2 ANTIBODY PLUS P24 ANTIGEN Routine 05/02/2024 4:21 PM INCOME AUDITOR TROPONIN T HIGH-SENSITIVITY 6-HOUR Timed 05/02/2024 10:58 AM INCOME AUDITOR CRITICAL CARE Routine 05/02/2024 10:19 AM INCOME AUDITOR Acute on chronic congestive heart failure, unspecified heart failure type (HCC) Chronic systolic heart failure (CMS/HCC) (HCC) TROPONIN T HIGH-SENSITIVITY 4-HR Timed 05/02/2024 8:13 AM INCOME AUDITOR FOLATE Routine 05/02/2024 7:59 AM INCOME AUDITOR VITAMIN B12 Routine 05/02/2024 7:59 AM INCOME AUDITOR URINALYSIS, MICROSCOPIC ONLY Routine 05/02/2024 7:51 AM INCOME AUDITOR DRUGS OF ABUSE SCREEN, URINE WITH REFLEX CONFIRMATION Routine 05/02/2024 7:51 AM INCOME AUDITOR URINALYSIS AND REFLEX TO MICROSCOPIC AND CULTURE Routine 05/02/2024 7:51 AM INCOME AUDITOR CRP (ACUTE PHASE) Routine 05/02/2024 6:2 5 AM INCOME AUDITOR THYROID FUNCTION CASCADE Routine 05/02/2024 6:25 AM INCOME AUDITOR IRON PROFILE W/ IBC Routine 05/02/2024 6 :25 AM INCOME AUDITOR FERRITIN Routine 05/02/2024 6:25 AM INCOME AUDITOR TROPONIN T HIGH-SENSITIVITY 2-HOUR Timed 05/02/2024 6:25 AM INCOME AUDITOR RETICULOCYTES Routine 05/02/2024 4:41 AM INCOME AUDITOR EGFR STAT 05/02/2024 4:41 AM INCOME AUDITOR DIFFERENTIAL AUTO STAT 05/02/2024 4:4 1 AM INCOME AUDITOR PRO B-TYPE NATRIURETIC PEPTIDE STAT 05/02/2024 4:41 AM INCOME AUDITOR TROPONIN T HIGH-SENSITIVITY SERIES (BASELINE, 2HR, 4HR, 6HR) STAT 05/02/2024 4:41 AM INCOME AUDITOR COMPREHENSIVE METABOLIC PANEL STAT 05/02/2024 4:41 AM INCOME AUDITOR CBC WITH AUTO DIFFERENTIAL STAT 05/02/2024 4:41 AM INCOME AUDITOR XR CHEST 1 VIEW ED 05/02/2024 4:29 AM INCOME AUDITOR OR CRITICAL CARE ILL/INJURED PATIENT INIT 30-74 MIN Routine 05/02/2024 4:23 AM INCOME AUDITOR ECG 12-LEAD STAT 05/02/2024 4:22 AM INCOME AUDITOR LIPID PANEL STAT 04/16/2024 8:00 AM INCOME AUDITOR MANUAL DIFFERENTIAL STAT 04/16/2024 8 :00 AM INCOME AUDITOR EGFR STAT 04/16/2024 8:00 AM INCOME AUDITOR DIFFERENTIAL AUTO STAT 04/16/2024 8:0 0 AM INCOME AUDITOR BASIC METABOLIC PANEL STAT 04/16/2024 8:00 AM INCOME AUDITOR HEPATIC FUNCTION PANEL STAT 04/16/2024 8:00 AM INCOME AUDITOR CBC WITH AUTO DIFFERENTIAL STAT 04/16/2024 8:00 AM INCOME AUDITOR MAGNESIUM STAT 04/16/2024 8:00 AM INCOME AUDITOR TRANSTHORACIC ECHO (TTE) COMPLETE W DOPPLER/CF WO CONTRAST Routine 04/15/2024 3:37 PM INCOME AUDITOR EGFR Timed 04/15/2024 12:45 PM INCOME AUDITOR MAGNESIUM Timed 04/15/2024 12:45 PM INCOME AUDITOR BASIC METABOLIC PANEL Timed 04/15/2024 12:45 PM INCOME AUDITOR MAGNESIUM Routine 04/15/2024 2:50 AM INCOME AUDITOR EGFR Routine 04/15/2024 2:50 AM INCOME AUDITOR DIFFERENTIAL AUTO Routine 04/15/2024 2:5 0 AM INCOME AUDITOR CBC WITH AUTO DIFFERENTIAL Routine 04/15/2024 2:50 AM INCOME AUDITOR COMPREHENSIVE METABOLIC PANEL Routine 04/15/2024 2:50 AM INCOME AUDITOR POCT GLUCOSE DEVICE Routine 04/14/2024 4 :29 PM INCOME AUDITOR TROPONIN T HIGH-SENSITIVITY 6-HOUR Timed 04/14/2024 3:49 PM INCOME AUDITOR NM PULMONARY PERFUSION IMAGING ED 04/14/2024 2:28 PM INCOME AUDITOR TROPONIN T HIGH-SENSITIVITY 2-HOUR Timed 04/14/2024 11:32 AM INCOME AUDITOR EGFR STAT 04/14/2024 9:23 AM INCOME AUDITOR DIFFERENTIAL AUTO STAT 04/14/2024 9:2 3 AM INCOME AUDITOR PRO B-TYPE NATRIURETIC PEPTIDE STAT 04/14/2024 9:23 AM INCOME AUDITOR TROPONIN T HIGH-SENSITIVITY SERIES (BASELINE, 2HR, 4HR, 6HR) STAT 04/14/2024 9:23 AM INCOME AUDITOR CBC WITH AUTO DIFFERENTIAL STAT 04/14/2024 9:23 AM INCOME AUDITOR COMPREHENSIVE METABOLIC PANEL STAT 04/14/2024 9:23 AM INCOME AUDITOR XR CHEST 1 VIEW ED 04/14/2024 9:20 AM INCOME AUDITOR INFLUENZA A/B, RSV, AND COVID-19 PCR STAT 04/14/2024 9:10 AM INCOME AUDITOR ECG 12-LEAD STAT 04/14/2024 8:58 AM INCOME AUDITOR from Last 3 Months Results * (ABNORMAL) eGFR (05/24/2024 8:10 PM INCOME AUDITOR) [facility] eGFR 24(L) >=60 mL/min/1. 73 m2 [...] last reviewed 2021. Blood 05/24/2024 8:10 PM INCOME AUDITOR 05/24/2024 8:50 PM INCOME AUDITOR us Ying Reagan MD LAB BLOOD ORDERABLES Final Result Performing Organization Address City/State/[facility] Co de Phone Number [facility] Department [place] [address] * (ABNORMAL) CBC without differential (05/24/2024 8:10 PM INCOME AUDITOR) WBC 4.9 3.8 - 9.9 K/cumm Hgb 11.2(L) 13.0 - 17.5 g/dL [facility] Hct 38.1(L) 38.9 - 50.3 % [facility] Plt 351 150 - 400 K/cumm [facility] MPV 9.5 9.1 - 12.3 fL [facility] RBC 4.39 4.30 - 5.80 M/cumm [facility] MCV 86.8 81.3 - 96.4 fL [facility] MCH 25.5(L) 27.1 - 33.3 pg [facility] MCHC 29.4(L) 32.3 - 35.7 g/dL [facility] RDW CV 20.4(H) 11.1 - 14.9 % [facility] RDW SD 64.2(H) 35.7 - 48.1 fL [facility] NRBC abs 0.00 0.00 - 0.01 K/cumm [facility] Blood 05/24/2024 8:10 PM INCOME AUDITOR 05/24/2024 8:49 PM INCOME AUDITOR Ying Reagan MD LAB BLOOD ORDERABLES Final Result Performing Organization Address City/[facility] Co de Phone Number [facility] [place] [address] * Magnesium (05/24/2024 8:10 PM INCOME AUDITOR) Pathologist [facility] Magnesium 2.2 1.4 - 2.5 mg/dL Blood 05/24/2024 8:10 PM INCOME AUDITOR 05/24/2024 8:50 PM INCOME AUDITOR Ying Reagan MD LAB BLOOD ORDERABLES Final Result [facility] [place] [address] * (ABNORMAL) Basic metabolic panel (05/24/2024 8:10 PM INCOME AUDITOR) Sodium 141 135 - 145 mmol/L Potassium, pl 3.9 3.3 - 4.9 mmol/L [facility] Chloride 103 97 - 110 mmol/L [facility] CO2 26 22 - 32 mmol/L [facility] Anion gap 12 2 - 15 mmol/L [facility] BUN 31(H) 6 - 25 mg/dL [facility] Creatinine 3.26(H) 0.80 - 1.30 mg/dL [facility] Glucose 107 70 - 199 mg/dL [facility] Comment: Interpretive Data Fasting glucose >/= 126 [...] 2022. Calcium 8.7 8.5 - 10.3 mg/dL [facility] Blood 05/24/2024 8:10 PM INCOME AUDITOR 05/24/2024 8:50 PM INCOME AUDITOR us Ying Reagan MD LAB BLOOD ORDERABLES Final Result [facility] [place] [address] * (ABNORMAL) eGFR (05/23/2024 10:53 PM INCOME AUDITOR) eGFR 24(L) >=60 mL/min/1. 73 m2 Comment: [...] reviewed 2021. Blood 05/23/2024 10:5 3 PM INCOME AUDITOR 05/23/2024 11:36 PM INCOME AUDITOR us Ying Reagan MD LAB BLOOD ORDERABLES Final Result [facility] [place] [address] * (ABNORMAL) CBC without differential (05/23/2024 10:53 PM INCOME AUDITOR) WBC 5.1 3.8 - 9.9 K/cumm Hgb 10.8(L) 13.0 - 17.5 g/dL [facility] Hct 35.7(L) 38.9 - 50.3 % [facility] Plt 245 150 - 400 K/cumm [facility] MPV 9.8 9.1 - 12.3 fL [facility] RBC 4.16(L) 4.30 - 5.80 M/cumm [facility] MCV 85.8 81.3 - 96.4 fL [facility] MCH 26.0(L) 27.1 - 33.3 pg [facility] MCHC 30.3(L) 32.3 - 35.7 g/dL [facility] RDW CV 21.1(H) 11.1 - 14.9 % [facility] RDW SD 65.1(H) 35.7 - 48.1 fL [facility] NRBC abs 0.00 0.00 - 0.01 K/cumm [facility] Blood 05/23/2024 10:5 3 PM INCOME AUDITOR 05/23/2024 11:25 PM INCOME AUDITOR us Ying Reagan MD LAB BLOOD ORDERABLES Final Result Performing Organization Address [facility] de Phone Number [facility] Department [place] [address] * Magnesium (05/23/2024 10:53 PM INCOME AUDITOR) [facility] Magnesium 1.9 1.4 - 2.5 mg/dL Blood 05/23/2024 10:5 3 PM INCOME AUDITOR 05/23/2024 11:25 PM INCOME AUDITOR us Ynig Reagan MD LAB BLOOD ORDERABLES Final Result Performing Organization Address [facility] de Phone Number [facility] Department [place] [address] * (ABNORMAL) Basic metabolic panel (05/23/2024 10:53 PM INCOME AUDITOR) [facility] Sodium 139 135 - 145 mmol/L Potassium, pl 4.1 3.3 - 4.9 mmol/L [facility] Chloride 104 97 - 110 mmol/L [facility] CO2 22 22 - 32 mmol/L [facility] Anion gap 13 2 - 15 mmol/L [facility] BUN 34(H) 6 - 25 mg/dL [facility] Creatinine 3.17(H) 0.80 - 1.30 mg/dL [facility] Glucose 83 70 - 199 mg/dL [facility] Comment: Interpretive Data Fasting glucose >/= 126 [...] Calcium 8.2(L) 8.5 - 10.3 mg/dL [facility] Blood 05/23/2024 10:5 3 PM INCOME AUDITOR 05/23/2024 11:25 PM INCOME AUDITOR us Ying Reagan MD LAB BLOOD ORDERABLES Final Result Performing Organization Address City/[facility]/ZIP Co de Phone Number [facility] [employer] [place] [employer] [place] [address] * (ABNORMAL) Protein, urine, 24 hour (05/23/2024 9:00 AM INCOME AUDITOR) [facility] Protein, 24 hr, ur 2,694(H) 0 - 150 mg/24H Urine/Blood 05/23/2024 9:00 AM INCOME AUDITOR 05/23/2024 3:26 PM INCOME AUDITOR us Momo Catherine MD LAB URINE ORDERABLES Final Resul t Performing Organization Address City/[facility]/ZIP Co de Phone Number [facility] [place] [address] * (ABNORMAL) eGFR (05/23/2024 9:00 AM INCOME AUDITOR) Pathologist [facility] eGFR 23(L) >=60 mL/min/1. 73 m2 [...] last reviewed 2021. Urine/Blood 05/23/2024 9:00 AM INCOME AUDITOR 05/23/2024 3:26 PM INCOME AUDITOR us Momo Catherine MD LAB BLOOD ORDERABLES Final Resul t [facility] [place] [address] * Volume and period, urine, 24 hour (05/23/2024 9:00 AM INCOME AUDITOR) Volume, ur 5,600 mL Period, Urine Collection 1,440 min ELVI NIÑO Urine/Blood 05/23/2024 9:00 AM INCOME AUDITOR 05/23/2024 3:26 PM INCOME AUDITOR us Ying Reagan MD LAB URINE ORDERABLES Final Result [facility] [place] [address] * (ABNORMAL) Creatinine clearance, urine, 24 hour (05/23/2024 9:00 AM INCOME AUDITOR) Pathologist [facility] Creatinine Clearance 40(L) 60 - 130 mL/min Creatinine, 24 hr, ur 1.9 0.8 - 2.2 g/24H [facility] Urine/Blood 05/23/2024 9:00 AM INCOME AUDITOR 05/23/2024 3:26 PM INCOME AUDITOR us Ying Reagan MD LAB URINE ORDERABLES Final Result Performing Organization Address City/[facility]/[place] [address] * (ABNORMAL) Creatinine (05/23/2024 9:00 AM INCOME AUDITOR) [facility] Creatinine 3.31(H) 0.80 - 1.30 mg/dL Urine/Blood 05/23/2024 9:00 AM INCOME AUDITOR 05/23/2024 3:26 PM INCOME AUDITOR us Momo Catherine MD LAB BLOOD ORDERABLES Final Resul t Performing Organization Address [facility] Co de Phone Number [facility] [place] [address] * (ABNORMAL) eGFR (05/22/2024 8:21 PM INCOME AUDITOR) Pathologist [facility] eGFR 22(L) >=60 mL/min/1. 73 m2 [...] last reviewed 2021. Blood 05/22/2024 8:21 PM INCOME AUDITOR 05/22/2024 9:02 PM INCOME AUDITOR us Ying Reagan MD LAB BLOOD ORDERABLES Final Result [facility] [place] [address] * (ABNORMAL) CBC without differential (05/22/2024 8:21 PM INCOME AUDITOR) WBC 5.7 3.8 - 9.9 K/cumm Hgb 10.0(L) 13.0 - 17.5 g/dL [facility] Hct 33.0(L) 38.9 - 50.3 % [facility] Plt 342 150 - 400 K/cumm [facility] MPV 10.1 9.1 - 12.3 fL [facility] RBC 3.90(L) 4.30 - 5.80 M/cumm [facility] MCV 84.6 81.3 - 96.4 fL [facility] MCH 25.6(L) 27.1 - 33.3 pg [facility] MCHC 30.3(L) 32.3 - 35.7 g/dL [facility] RDW CV 20.9(H) 11.1 - 14.9 % [facility] RDW SD 62.9(H) 35.7 - 48.1 fL [facility] NRBC abs 0.00 0.00 - 0.01 K/cumm [facility] Blood 05/22/2024 8:21 PM INCOME AUDITOR 05/22/2024 9:06 PM INCOME AUDITOR Ying Reagan MD LAB BLOOD ORDERABLES Final Result Performing Organization Address City/[facility]/ZIP Co de Phone Number [facility] [place] [address] * Magnesium (05/22/2024 8:21 PM INCOME AUDITOR) Pathologist [facility] Magnesium 1.9 1.4 - 2.5 mg/dL Blood 05/22/2024 8:21 PM INCOME AUDITOR 05/22/2024 9:02 PM INCOME AUDITOR us Ying Reagan MD LAB BLOOD ORDERABLES Final Result Performing Organization Address [facility] Co de Phone Number [facility] [place] [employer] [place] [address] * Folate (05/22/2024 8:21 PM INCOME AUDITOR) Folic acid 11.2 >=5.0 ng/mL Blood 05/22/2024 8:21 PM INCOME AUDITOR 05/22/2024 9:02 PM INCOME AUDITOR Ying Reagan MD LAB BLOOD ORDERABLES Final Result Performing Organization Address [facility] Co de Phone Number [facility] [employer] [place] [address] * Ferritin (05/22/2024 8:21 PM INCOME AUDITOR) Ferritin 228 30 - 400 ng/mL Blood 05/22/2024 8:21 PM INCOME AUDITOR 05/22/2024 9:02 PM INCOME AUDITOR Ying Reagan MD LAB BLOOD ORDERABLES Final Result [facility] [place] [address] * Vitamin B12 (05/22/2024 8:21 PM INCOME AUDITOR) Pathologist [facility] Vitamin B12 467 230 - 1,250 pg/mL Blood 05/22/2024 8:21 PM INCOME AUDITOR 05/22/2024 9:02 PM INCOME AUDITOR Ying Reagan MD LAB BLOOD ORDERABLES Final Result Performing Organization Address [facility] de Phone Number [facility] [place] [address] * (ABNORMAL) Basic metabolic panel (05/22/2024 8:21 PM INCOME AUDITOR) [facility] Sodium 141 135 - 145 mmol/L Potassium, pl 4.0 3.3 - 4.9 mmol/L [facility] Chloride 104 97 - 110 mmol/L [facility] CO2 26 22 - 32 mmol/L [facility] Anion gap 11 2 - 15 mmol/L [facility] BUN 36(H) 6 - 25 mg/dL [facility] Creatinine 3.45(H) 0.80 - 1.30 mg/dL [facility] Glucose 105 70 - 199 mg/dL [facility] Comment: Interpretive Data Fasting glucose >/= 126 [...] Calcium 8.4(L) 8.5 - 10.3 mg/dL [facility] Blood 05/22/2024 8:21 PM INCOME AUDITOR 05/22/2024 9:02 PM INCOME AUDITOR us Ying Reagan MD LAB BLOOD ORDERABLES Final Result [facility] [place] [address] * (ABNORMAL) Urinalysis reflex to microscopic and culture Urine (05/22/2024 7:49 AM INCOME AUDITOR) Color, ur Straw Yellow Clarity, ur Clear Clear [facility] Specific gravity, ur 1.006 1.003 - 1.030 [facility] pH, urine 6.5 [facility] Comment: Interpretive Data ? Urine pH is affected by diet, medications, systemic acid-base disturbances, and renal tubular function. ??pH may affect urinary stone formation. ??For example, urine pH below 6.0 may help reduce the tendency for calcium phosphate stones and pH greater than 6.0 may reduce the tendency for uric acid stone formation. Source: [facility] [employer] Current Interpretive Data was last revised on 2017 Protein, ur ql 1+(A) Negative [facility] Glucose, ur ql Negative Negative [facility] Ketones, ur Negative Negative [facility] Bilirubin, ur Negative Negative [facility] Blood, ur Negative Negative [facility] Urobilinogen, ur <2.0 <2.0 mg/dL [facility] Nitrite, ur Negative Negative [facility] Leukocyte esterase, ur Negative Negative [facility] UA reflex comment Reflex to microscopic UA will be performed. [facility] Urine 05/22/2024 7:49 AM INCOME AUDITOR 05/22/2024 8:58 AM INCOME AUDITOR us Ying Reagan MD LAB MICROBIOLOGY - G ENERAL ORDERABLES Final Result [facility] [place] [address] * (ABNORMAL) Albumin Creatinine Ratio, Urine (05/22/2024 7:49 AM INCOME AUDITOR) Albumin Ur 192.0 mg/L Comment: Interpretive Data No reference range established. Current interpretive data was last revised 2018. Creatinine Ur 21.5 mg/dL [facility] Comment: Interpretive Data No reference range established. Current interpretive data was last revised 2018. Albumin Creatinine Ratio, Ur 893(H) 1 - 29 mg/g [facility] Urine 05/22/2024 7:49 AM INCOME AUDITOR 05/22/2024 9:00 AM INCOME AUDITOR Ying Reagan MD LAB URINE ORDERABLES Final Result Performing Organization Address City/[facility] Co de Phone Number [facility] [place] [address] * Sodium, urine, random (05/22/2024 7:49 AM INCOME AUDITOR) Sodium, ur 115 mmol/L Comment: Interpretive Data No reference range established. Current interpretive data was last revised 2018. Urine 05/22/2024 7:49 AM INCOME AUDITOR 05/22/2024 8:58 AM INCOME AUDITOR Ying eRagan MD LAB URINE ORDERABLES Final Result Performing Organization Address City/[facility]/ZIP Co de Phone Number [facility] [place] [address] * Urinalysis, microscopic only (05/22/2024 7:49 AM INCOME AUDITOR) WBC, ur 0-5 0 - 5 /HPF RBC, ur 0-2 0 - 2 /HPF [facility] Culture Reflex Comment Reflex conditions for urine culture (WBC >10) not met. [facility] Urine 05/22/2024 7:49 AM INCOME AUDITOR 05/22/2024 8:58 AM INCOME AUDITOR us Ying Reagan MD LAB URINE ORDERABLES Final Result Performing Organization Address [facility] Co de Phone Number [facility] [employer] [place] [address] * (ABNORMAL) eGFR (05/22/2024 6:14 AM INCOME AUDITOR) eGFR 23(L) >=60 mL/min/1. 73 m2 Comment: [...] last reviewed 2021. Blood 05/22/2024 6:14 AM INCOME AUDITOR 05/22/2024 7:55 AM INCOME AUDITOR us Ying Reagan MD LAB BLOOD ORDERABLES Final Result Performing Organization Address [facility] Co de Phone Number [facility] [place] [address] * (ABNORMAL) Iron profile w/ IBC (05/22/2024 6:14 AM INCOME AUDITOR) Pathologist [facility] Iron 38(L) 50 - 150 mcg/dL TIBC 169(L) 250 - 400 mcg/dL [facility] Transferrin saturation 22 20 - 50 % [facility] Blood 05/22/2024 6:14 AM INCOME AUDITOR 05/22/2024 6:45 AM INCOME AUDITOR Sincere Isidro MD LAB BLOOD ORDERABLES Final Result [facility] [employer] [place] [address] * HIV 1/2 Antibody plus p24 Antigen Blood (05/22/2024 6:14 AM INCOME AUDITOR) Pathologist [facility] HIV 1/2 ab + p24 ag Nonreactive Nonreactive Comment:Nonreactive for HIV- 1 antigen and HIV-1/HIV-2 antibodies. No laboratory evidence of HIV infection. If acute HIV infection is suspected, consider testing for HIV-1 RNA. Current interpretive data was last revised on 22. Blood 05/22/2024 6:14 AM INCOME AUDITOR 05/22/2024 6:44 AM INCOME AUDITOR Sincere Isidro MD LAB MICROBIOLOGY - GENERAL ORDERABLES Final Result Performing Organization Address City/[facility]/ZIP Co de Phone Number [facility] [place] [address] * RPR Blood (05/22/2024 6:14 AM INCOME AUDITOR) Pathologist [facility] RPR Nonreactive Nonreactive Blood 05/22/2024 6:14 AM INCOME AUDITOR 05/22/2024 6:44 AM INCOME AUDITOR Sincere Isidro MD LAB MICROBIOLOGY - GENERAL ORDERABLES Final Result [facility] [place] [address] * Ferritin (05/22/2024 6:14 AM INCOME AUDITOR) Ferritin 239 30 - 400 ng/mL Blood 05/22/2024 6:14 AM INCOME AUDITOR 05/22/2024 6:45 AM INCOME AUDITOR Ying Reagan MD LAB BLOOD ORDERABLES Final Result Performing Organization Address City/[facility] Co de Phone Number [place] [address] * (ABNORMAL) Creatinine (05/22/2024 6:14 AM INCOME AUDITOR) Creatinine 3.31(H) 0.80 - 1.30 mg/dL Blood 05/22/2024 6:14 AM INCOME AUDITOR 05/22/2024 7:55 AM INCOME AUDITOR us Ying Reagan MD LAB BLOOD ORDERABLES Final Result Performing Organization Address City/[facility] de Phone Number [facility] [place] [address] * Lipid panel (05/22/2024 6:14 AM INCOME AUDITOR) Cholesterol 122 30 - 199 mg/dL Comment: [...] revised on 2018. Triglycerides 46 <=149 mg/dL [facility] Comment: Interpretive Data Ages < or = [...] revised on 2018. HDL 54 >=40 mg/dL [facility] Comment: Interpretive Data Ages < or = [...] on 2018. LDL, calculated 57 <=129 mg/dL [facility] Comment: Interpretive Data Ages < or = [...] 2 [place] NIÑO Blood 05/22/2024 6:14 AM INCOME AUDITOR 05/22/2024 6:45 AM INCOME AUDITOR us Sincere Isidro MD LAB BLOOD ORDERABLES Final Result [place] [facility] Department [place] [address] * Troponin I high-sensitivity 4-hour (05/22/2024 2:15 AM INCOME AUDITOR) Trop I hs 33 <=35 ng/L Comment: Interpretive Data For further [facility] resources including the diagnostic algorithm and an aid in interpretation, copy and paste this link: https://bjhlab.testcatalog.org/show/hsTrop-1 Current Interpretive Data last revised 2019. Trop I hs delta -7 ng/L [facility] Trop I hs interp Equivocal [facility] Blood 05/22/2024 2:15 AM INCOME AUDITOR 05/22/2024 2:30 AM INCOME AUDITOR Edward Rueda MD LAB BLOOD ORDERABLES Abigail estella Result [facility] [place] [address] * OR CRITICAL CARE ILL/INJURED PATIENT INIT 30-74 MIN (05/22/2024 1:57 AM INCOME AUDITOR) Narrative New Patel MD - 05/22/2024 1:57 AM INCOME AUDITOR New Patel MD ? 05/22/2024 ??2:04 AM Critical Care Performed by: Nwe Patel MD Authorized by: New Patel MD [...] (baseline, 2hr, 4hr, 6hr) (05/21/2024 10:13 PM INCOME AUDITOR) Trop I hs 40(H) <=35 ng/L Comment: Interpretive Data For further hscTnI resources including the diagnostic algorithm and an aid in interpretation, copy and paste this link: https://bjhlab.testcatalog.org/show/hsTrop-1 Current Interpretive Data last revised 2019. Blood 05/21/2024 10:1 3 PM INCOME AUDITOR 05/21/2024 11:09 PM INCOME AUDITOR us New Patel MD LAB BLOOD ORDERABLES Abigail l Result [facility] [place] [address] * (ABNORMAL) eGFR (05/21/2024 10:13 PM INCOME AUDITOR) eGFR 23(L) >=60 mL/min/1. 73 m2 Comment: [...] reviewed 2021. Blood 05/21/2024 10:1 3 PM INCOME AUDITOR 05/21/2024 11:09 PM INCOME AUDITOR us New Patel MD LAB BLOOD ORDERABLES Abigail soria Result [facility] [place] [address] * Differential, auto (05/21/2024 10:13 PM INCOME AUDITOR) Neutrophil abs 4.3 1.5 - 6.5 K/cumm Imm gran abs 0.0 0.0 - 0.1 K/cumm [facility] Lymphocyte abs 1.0 0.8 - 3.3 K/cumm [facility] Monocyte abs 0.3 0.2 - 0.8 K/cumm [facility] Eosinophil abs 0.1 0.0 - 0.5 K/cumm [facility] Basophil abs 0.0 0.0 - 0.1 K/cumm [facility] Neutrophil pct 74.8 % [facility] Comment: Interpretive Data Percent cell count reference ranges are not reported, since discordance with absolute values may lead to misinterpretation of CBC data. Current Interpretive Data was last revised on 2017. Imm gran pct 0.5 % [facility] Comment: Interpretive Data Percent cell count reference ranges are not reported, since discordance with absolute values may lead to misinterpretation of CBC data. Current Interpretive Data was last revised on 2017. Lymphocyte pct 17.9 % [facility] Comment: Interpretive Data Percent cell count reference ranges are not reported, since discordance with absolute values may lead to misinterpretation of CBC data. Current Interpretive Data was last revised on 2017. Monocyte pct 4.9 % [facility] Comment: Interpretive Data Percent cell count reference ranges are not reported, since discordance with absolute values may lead to misinterpretation of CBC data. Current Interpretive Data was last revised on 2017. Eosinophil pct 1.6 % [facility] Comment: Interpretive Data Percent cell count reference ranges are not reported, since discordance with absolute values may lead to misinterpretation of CBC data. Current Interpretive Data was last revised on 2017. Basophil pct 0.3 % [facility] Comment: Interpretive Data Percent cell count reference ranges are not reported, since discordance with absolute values may lead to misinterpretation of CBC data. Current Interpretive Data was last revised on 2017. Blood 05/21/2024 10:1 3 PM INCOME AUDITOR 05/21/2024 11:09 PM INCOME AUDITOR us New Patel MD LAB BLOOD ORDERABLES Abigail soria Result [facility] [place] [address] * (ABNORMAL) Pro B-type natriuretic peptide (05/21/2024 10:13 PM INCOME AUDITOR) NT-proBNP 9,079(H) <=300 pg/mL Comment: Interpretive Comments: [...] Date: 2018. Blood 05/21/2024 10:1 3 PM INCOME AUDITOR 05/21/2024 11:09 PM INCOME AUDITOR us New Patel MD LAB BLOOD ORDERABLES Abigail soria Result [facility] Department of Laboratories [place], [place] [id number] * (ABNORMAL) CBC with auto differential (05/21/2024 10:13 PM INCOME AUDITOR) [facility] WBC 5.7 3.8 - 9.9 K/cumm Hgb 10.4(L) 13.0 - 17.5 g/dL [facility] Hct 34.5(L) 38.9 - 50.3 % [facility] Plt 326 150 - 400 K/cumm [facility] MPV 9.8 9.1 - 12.3 fL [facility] RBC 4.01(L) 4.30 - 5.80 M/cumm [facility] MCV 86.0 81.3 - 96.4 fL [facility] MCH 25.9(L) 27.1 - 33.3 pg [facility] MCHC 30.1(L) 32.3 - 35.7 g/dL [facility] RDW CV 20.7(H) 11.1 - 14.9 % [facility] RDW SD 64.3(H) 35.7 - 48.1 fL [facility] NRBC abs 0.00 0.00 - 0.01 K/cumm [facility] Blood 05/21/2024 10:1 3 PM INCOME AUDITOR 05/21/2024 11:09 PM INCOME AUDITOR New Patel MD LAB BLOOD ORDERABLES Abigail l Result [facility] [place] [address] * (ABNORMAL) Comprehensive metabolic panel (05/21/2024 10:13 PM INCOME AUDITOR) Sodium 142 135 - 145 mmol/L Potassium, pl 3.8 3.3 - 4.9 mmol/L [facility] Chloride 105 97 - 110 mmol/L [facility] CO2 26 22 - 32 mmol/L [facility] Anion gap 11 2 - 15 mmol/L [facility] BUN 34(H) 6 - 25 mg/dL [facility] Creatinine 3.34(H) 0.80 - 1.30 mg/dL [facility] Glucose 135 70 - 199 mg/dL [facility] Comment: Interpretive Data Fasting glucose >/= 126 [...] Calcium 9.1 8.5 - 10.3 mg/dL [facility] Bilirubin, total 0.5 0.1 - 1.2 mg/dL [facility] Protein, pl 7.7 6.5 - 8.5 g/dL [facility] Albumin 3.5 3.5 - 5.0 g/dL [facility] Alk phos 128 40 - 130 Units/L [facility] ALT 50 7 - 55 Units/L [facility] AST 32 10 - 50 Units/L [facility] Blood 05/21/2024 10:1 3 PM INCOME AUDITOR 05/21/2024 11:09 PM INCOME AUDITOR New Patel MD LAB BLOOD ORDERABLES Abigail l Result [facility] [place] [address] * XR Chest PA Lateral 2 Views (05/21/2024 8:12 PM INCOME AUDITOR) Anatomical Region Laterality Modality Body, Chest N/A Computed Radiogr aphy 05/21/2024 8:43 PM INCOME AUDITOR Impressions 05/21/2024 8:46 PM INCOME AUDITOR Comparison 05/02/2024 No focal consolidation or definite [...] Elias Sousa M.D. Narrative 05/21/2024 8:46 PM INCOME AUDITOR EXAMINATION: 2 view chest radiograph Procedure Note [...] esult * ECG 12-LEAD (05/21/2024 8:11 PM INCOME AUDITOR) Narrative MUSE C - 05/21/2024 8:11 PM INCOME AUDITOR Florentino Macias MD ? 05/21/2024 ??8:12 PM [...] BJ * (ABNORMAL) eGFR (05/09/2024 5:25 AM INCOME AUDITOR) eGFR 22(L) >=60 mL/min/1. 73 m2 Comment: [...] was last reviewed 2021. Testing performed by: [facility], [address] [place] [address], [place]., [address] Blood 05/09/2024 5:25 AM INCOME AUDITOR 05/09/2024 5:59 AM INCOME AUDITOR us Edward Sauer MD LAB BLOOD ORDERABLES Final R esult [facility] [address] [facility] Department of Laboratories [place], [place] [id number] * Differential, auto (05/09/2024 5:25 AM INCOME AUDITOR) Neutrophil abs 4.8 1.5 - 6.5 K/cumm Comment:Testing performed by : [address] [address] Imm gran abs 0.0 0.0 - 0.1 K/cumm ELVI Comment:Testing performed by : [address] [address] Lymphocyte abs 1.1 0.8 - 3.3 K/cumm ELVI Comment:Testing performed by : [address] [address] Monocyte abs 0.8 0.2 - 0.8 K/cumm ELVI Comment:Testing performed by : [address] [address] Eosinophil abs 0.1 0.0 - 0.5 K/cumm ELVI Comment:Testing performed by : [address] [address] Basophil abs 0.0 0.0 - 0.1 K/cumm [facility] Comment:Testing performed by : [address] [address] Neutrophil pct 70.6 % [facility] Comment: Interpretive Data Percent cell count reference ranges are not reported, since discordance with absolute values may lead to misinterpretation of CBC data. Current Interpretive Data was last revised on 2017. Testing performed by: [address] [address] Imm gran pct 0.4 % ELVI Comment: Interpretive Data Percent cell count reference ranges are not reported, since discordance with absolute values may lead to misinterpretation of CBC data. Current Interpretive Data was last revised on 2017. Testing performed by: [address] [address] Lymphocyte pct 15.5 % [facility] Comment: Interpretive Data Percent cell count reference ranges are not reported, since discordance with absolute values may lead to misinterpretation of CBC data. Current Interpretive Data was last revised on 2017. Testing performed by: [address] [address] Monocyte pct 11.1 % ELVI Comment: Interpretive Data Percent cell count reference ranges are not reported, since discordance with absolute values may lead to misinterpretation of CBC data. Current Interpretive Data was last revised on 2017. Testing performed by: [address] [address] Eosinophil pct 2.1 % [facility] Comment: Interpretive Data Percent cell count reference ranges are not reported, since discordance with absolute values may lead to misinterpretation of CBC data. Current Interpretive Data was last revised on 2017. Testing performed by: [address] [address] Basophil pct 0.3 % [facility] Comment: Interpretive Data Percent cell count reference ranges are not reported, since discordance with absolute values may lead to misinterpretation of CBC data. Current Interpretive Data was last revised on 2017. Testing performed by: [address] [address] Blood 05/09/2024 5:25 AM INCOME AUDITOR 05/09/2024 5:59 AM INCOME AUDITOR Amaury Lezama MD LAB BLOOD ORDERABL ES Final Result [facility] [address] [facility] Department [place] [address] * (ABNORMAL) CBC with auto differential (05/09/2024 5:25 AM INCOME AUDITOR) WBC 6.8 3.8 - 9.9 K/cumm Comment:Testing performed by : [address] [address] Hgb 9.5(L) 13.0 - 17.5 g/dL [facility]VI SN[facility]ER Comment:Testing performed by : [address], [address] Hct 31.1(L) 38.9 - 50.3 % ELVI Comment:Testing performed by : [address] [address] Plt 284 150 - 400 K/cumm ELVI Comment:Testing performed by : [address] [address] MPV 9.5 9.1 - 12.3 fL [facility] Comment:Testing performed by : [address] [address] RBC 3.76(L) 4.30 - 5.80 M/cumm [facility] Comment:Testing performed by : [address] [address] MCV 82.7 81.3 - 96.4 fL ELIV Comment:Testing performed by : [address] [address] MCH 25.3(L) 27.1 - 33.3 pg ELVI Comment:Testing performed by : [address] [address] MCHC 30.5(L) 32.3 - 35.7 g/dL [facility] Comment:Testing performed by : [address], [address] RDW CV 18.7(H) 11.1 - 14.9 % [facility] Comment:Testing performed by : [address], [address] RDW SD 55.7(H) 35.7 - 48.1 fL [facility] Comment:Testing performed by : [address] [address] NRBC abs 0.00 0.00 - 0.01 K/cumm ELVI Comment:Testing performed by : [address], [address] Blood 05/09/2024 5:25 AM INCOME AUDITOR 05/09/2024 5:59 AM INCOME AUDITOR Amaury Lezama MD LAB BLOOD ORDERABL ES Final Result Performing Organization Address [facility] Co de Phone Number [address] [employer] [place] [address] * (ABNORMAL) Phosphorus (05/09/2024 5:25 AM INCOME AUDITOR) Phosphorus, pl 4.7(H) 2.3 - 4.5 mg/dL Comment:Testing performed by : [address] [address] Blood 05/09/2024 5:25 AM INCOME AUDITOR 05/09/2024 5:59 AM INCOME AUDITOR Amaury Lezama MD LAB BLOOD ORDERABL ES Final Result Performing Organization Address [facility] de Phone Number [address] [employer] [place] [address] * Magnesium (05/09/2024 5:25 AM INCOME AUDITOR) Pathologist [facility] Magnesium 2.1 1.4 - 2.5 mg/dL Comment:Testing performed by : [address] [address] Blood 05/09/2024 5:25 AM INCOME AUDITOR 05/09/2024 5:59 AM INCOME AUDITOR Amaury Lezama MD LAB BLOOD ORDERABL ES Final Result Performing Organization Address [facility] de Phone Number [address] [employer] [place] [address] * (ABNORMAL) Basic metabolic panel (05/09/2024 5:25 AM INCOME AUDITOR) Pathologist [facility] Sodium 136 135 - 145 mmol/L Comment:Testing performed by : [address] [address] Potassium, pl 3.8 3.3 - 4.9 mmol/L ELVI Comment:Testing performed by : [address] [address] Chloride 98 97 - 110 mmol/L [facility] Comment:Testing performed by : [address] [address] CO2 27 22 - 32 mmol/L [facility] Comment:Testing performed by : [address] [address] Anion gap 11 2 - 15 mmol/L [facility] Comment:Testing performed by : [address] [address] BUN 44(H) 6 - 25 mg/dL [facility] Comment:Testing performed by : [address] [address] Creatinine 3.50(H) 0.80 - 1.30 mg/dL [facility] Comment:Testing performed by : [address] [address] Glucose 101 70 - 199 mg/dL ELVI [...] was last revised 2022. Testing performed by: [address] [address] Calcium 9.0 8.5 - 10.3 mg/dL [facility] Comment:Testing performed by : [address] [address] Blood 05/09/2024 5:25 AM INCOME AUDITOR 05/09/2024 5:59 AM INCOME AUDITOR us Edward Sauer MD LAB BLOOD ORDERABLES Final R esult [facility] 0[address] [facility] Department [place] [address] * (ABNORMAL) eGFR (05/08/2024 5:20 AM INCOME AUDITOR) eGFR 21(L) >=60 mL/min/1. 73 m2 Comment: [...] was last reviewed 2021. Testing performed by: [facility], [address] [place] [address]., [address] Blood 05/08/2024 5:20 AM INCOME AUDITOR 05/08/2024 5:55 AM INCOME AUDITOR us Edward Sauer MD LAB BLOOD ORDERABLES Final R esult [facility] 4[address] [facility] Department [place] [address] * (ABNORMAL) Differential, auto (05/08/2024 5:20 AM INCOME AUDITOR) Pathologist [facility] Neutrophil abs 5.5 1.5 - 6.5 K/cumm Comment:Testing performed by : [facility], [address] [place] [address], [place]., [address] Imm gran abs 0.0 0.0 - 0.1 K/cumm [facility] Comment:Testing performed by : [facility], [address] [place] [address], [place]., [address] Lymphocyte abs 0.7(L) 0.8 - 3.3 K/cumm [facility] Comment:Testing performed by : [address] [address] Monocyte abs 0.7 0.2 - 0.8 K/cumm [facility] Comment:Testing performed by : [address], [place]., [address] Eosinophil abs 0.1 0.0 - 0.5 K/cumm [facility] Comment:Testing performed by : [address] [address] Basophil abs 0.0 0.0 - 0.1 K/cumm [facility] Comment:Testing performed by : [address] [address] Neutrophil pct 77.7 % [facility] Comment: Interpretive Data Percent cell count reference ranges are not reported, since discordance with absolute values may lead to misinterpretation of CBC data. Current Interpretive Data was last revised on 2017. Testing performed by: [address] [address] Imm gran pct 0.4 % [facility] Comment: Interpretive Data Percent cell count reference ranges are not reported, since discordance with absolute values may lead to misinterpretation of CBC data. Current Interpretive Data was last revised on 2017. Testing performed by: [address] [address] Lymphocyte pct 10.4 % [facility] Comment: Interpretive Data Percent cell count reference ranges are not reported, since discordance with absolute values may lead to misinterpretation of CBC data. Current Interpretive Data was last revised on 2017. Testing performed by: [address] [address] Monocyte pct 10.1 % [facility] Comment: Interpretive Data Percent cell count reference ranges are not reported, since discordance with absolute values may lead to misinterpretation of CBC data. Current Interpretive Data was last revised on 2017. Testing performed by: [address] [address] Eosinophil pct 1.1 % [facility] Comment: Interpretive Data Percent cell count reference ranges are not reported, since discordance with absolute values may lead to misinterpretation of CBC data. Current Interpretive Data was last revised on 2017. Testing performed by: [address] [address] Basophil pct 0.3 % [facility] Comment: Interpretive Data Percent cell count reference ranges are not reported, since discordance with absolute values may lead to misinterpretation of CBC data. Current Interpretive Data was last revised on 2017. Testing performed by: [address] [address] Blood 05/08/2024 5:20 AM INCOME AUDITOR 05/08/2024 5:55 AM INCOME AUDITOR Amaury Lezama MD LAB BLOOD ORDERABL ES Final Result [facility] [address] [facility] Department [place] [address] * (ABNORMAL) CBC with auto differential (05/08/2024 5:20 AM INCOME AUDITOR) Pathologist [facility] WBC 7.1 3.8 - 9.9 K/cumm Comment:Testing performed by : [address] [address] Hgb 9.0(L) 13.0 - 17.5 g/dL [facility] Comment:Testing performed by : [address] [address] Hct 29.1(L) 38.9 - 50.3 % [facility] Comment:Testing performed by : [address] [address] Plt 290 150 - 400 K/cumm [facility] Comment:Testing performed by : [address] [address] MPV 9.6 9.1 - 12.3 fL [facility] Comment:Testing performed by : [address] [address] RBC 3.56(L) 4.30 - 5.80 M/cumm [facility] Comment:Testing performed by : [address] [address] MCV 81.7 81.3 - 96.4 fL [facility] Comment:Testing performed by : [address] [address] MCH 25.3(L) 27.1 - 33.3 pg [facility] Comment:Testing performed by : [address] [address] MCHC 30.9(L) 32.3 - 35.7 g/dL [facility] Comment:Testing performed by : [address], [address] RDW CV 18.4(H) 11.1 - 14.9 % [facility] Comment:Testing performed by : [address] [address] RDW SD 53.3(H) 35.7 - 48.1 fL [facility] Comment:Testing performed by : [address] [address] NRBC abs 0.00 0.00 - 0.01 K/cumm [facility] Comment:Testing performed by : [address] [address] Blood 05/08/2024 5:20 AM INCOME AUDITOR 05/08/2024 5:55 AM INCOME AUDITOR us Amaury Lezama MD LAB BLOOD ORDERABL ES Final Result [facility] 2[address] [facility] Department of Laboratories [place], [place] [id number] * (ABNORMAL) Phosphorus (05/08/2024 5:20 AM INCOME AUDITOR) Phosphorus, pl 4.6(H) 2.3 - 4.5 mg/dL Comment:Testing performed by : [address] [address] Blood 05/08/2024 5:20 AM INCOME AUDITOR 05/08/2024 5:55 AM INCOME AUDITOR Amaury Lezama MD LAB BLOOD ORDERABL ES Final Result Performing Organization Address [facility] Co de Phone Number [address] [place] [address] * Magnesium (05/08/2024 5:20 AM INCOME AUDITOR) Pathologist [facility] Magnesium 2.1 1.4 - 2.5 mg/dL Comment:Testing performed by : [address] [address] Blood 05/08/2024 5:20 AM INCOME AUDITOR 05/08/2024 5:55 AM INCOME AUDITOR Amaury Lezama MD LAB BLOOD ORDERABL ES Final Result Performing Organization Address [facility] Co de Phone Number [address] [address] * (ABNORMAL) Basic metabolic panel (05/08/2024 5:20 AM INCOME AUDITOR) Pathologist [facility] Sodium 133(L) 135 - 145 mmol/L Comment:Testing performed by : [address] [address] Potassium, pl 3.8 3.3 - 4.9 mmol/L [facility] Comment:Testing performed by : [address] [address] Chloride 96(L) 97 - 110 mmol/L [facility] Comment:Testing performed by : [address] [address] CO2 26 22 - 32 mmol/L [facility] Comment:Testing performed by : [address] [address] Anion gap 11 2 - 15 mmol/L [facility] Comment:Testing performed by : [address] [address] BUN 43(H) 6 - 25 mg/dL [facility] Comment:Testing performed by : [address] [address] Creatinine 3.60(H) 0.80 - 1.30 mg/dL [facility] Comment:Testing performed by : [address] [address] Glucose 109 70 - 199 mg/dL [facility] [...] was last revised 2022. Testing performed by: [address] [address] Calcium 8.8 8.5 - 10.3 mg/dL [facility] Comment:Testing performed by : [address] [address] Blood 05/08/2024 5:20 AM INCOME AUDITOR 05/08/2024 5:55 AM INCOME AUDITOR us Edward Sauer MD LAB BLOOD ORDERABLES Final R esult [facility] [address] [facility] Department [place] [address] * (ABNORMAL) eGFR (05/07/2024 3:12 AM INCOME AUDITOR) eGFR 22(L) >=60 mL/min/1. 73 m2 Comment: [...] was last reviewed 2021. Testing performed by: [address] [address] Blood 05/07/2024 3:12 AM INCOME AUDITOR 05/07/2024 4:37 AM INCOME AUDITOR us Edward Sauer MD LAB BLOOD ORDERABLES Final R esult [facility] [address] [facility] Department [place] [address] * Differential, auto (05/07/2024 3:12 AM INCOME AUDITOR) Neutrophil abs 5.0 1.5 - 6.5 K/cumm Comment:Testing performed by : [address] [address] Imm gran abs 0.0 0.0 - 0.1 K/cumm [facility] Comment:Testing performed by : [address] [address] Lymphocyte abs 1.0 0.8 - 3.3 K/cumm [facility] Comment:Testing performed by : [address] [address] Monocyte abs 0.7 0.2 - 0.8 K/cumm [facility] Comment:Testing performed by : [address] [address] Eosinophil abs 0.1 0.0 - 0.5 K/cumm [facility] Comment:Testing performed by : [address], [place]., [address] Basophil abs 0.0 0.0 - 0.1 K/cumm [facility] Comment:Testing performed by : [address] [address] Neutrophil pct 73.7 % [facility] Comment: Interpretive Data Percent cell count reference ranges are not reported, since discordance with absolute values may lead to misinterpretation of CBC data. Current Interpretive Data was last revised on 2017. Testing performed by: [address] [address] Imm gran pct 0.3 % [facility] Comment: Interpretive Data Percent cell count reference ranges are not reported, since discordance with absolute values may lead to misinterpretation of CBC data. Current Interpretive Data was last revised on 2017. Testing performed by: [address] [address] Lymphocyte pct 14.2 % [facility] Comment: Interpretive Data Percent cell count reference ranges are not reported, since discordance with absolute values may lead to misinterpretation of CBC data. Current Interpretive Data was last revised on 2017. Testing performed by: [address] [address] Monocyte pct 10.2 % [facility] Comment: Interpretive Data Percent cell count reference ranges are not reported, since discordance with absolute values may lead to misinterpretation of CBC data. Current Interpretive Data was last revised on 2017. Testing performed by: [address] [address] Eosinophil pct 1.3 % [facility] Comment: Interpretive Data Percent cell count reference ranges are not reported, since discordance with absolute values may lead to misinterpretation of CBC data. Current Interpretive Data was last revised on 2017. Testing performed by: [address] [address] Basophil pct 0.3 % [facility] Comment: Interpretive Data Percent cell count reference ranges are not reported, since discordance with absolute values may lead to misinterpretation of CBC data. Current Interpretive Data was last revised on 2017. Testing performed by: [address] [address] Blood 05/07/2024 3:12 AM INCOME AUDITOR 05/07/2024 4:40 AM INCOME AUDITOR us Amaury Lezama MD LAB BLOOD ORDERABL ES Final Result [facility] [address] [facility] Department [place] [address] * (ABNORMAL) CBC with auto differential (05/07/2024 3:12 AM INCOME AUDITOR) WBC 6.8 3.8 - 9.9 K/cumm Comment:Testing performed by : [address] [address] Hgb 9.2(L) 13.0 - 17.5 g/dL [facility] Comment:Testing performed by : [address] [address] Hct 30.0(L) 38.9 - 50.3 % [facility] Comment:Testing performed by : [address] [address] Plt 298 150 - 400 K/cumm [facility] Comment:Testing performed by : [address] [address] MPV 9.4 9.1 - 12.3 fL [facility] Comment:Testing performed by : [address] [address] RBC 3.65(L) 4.30 - 5.80 M/cumm [facility] Comment:Testing performed by : [address] [address] MCV 82.2 81.3 - 96.4 fL [facility] Comment:Testing performed by : [facility], [address] [place] [address]., [address] MCH 25.2(L) 27.1 - 33.3 pg [facility] Comment:Testing performed by : [address] [address] MCHC 30.7(L) 32.3 - 35.7 g/dL [facility] Comment:Testing performed by : [address] [address] RDW CV 18.1(H) 11.1 - 14.9 % [facility] Comment:Testing performed by : [address], [address] RDW SD 53.0(H) 35.7 - 48.1 fL [facility] Comment:Testing performed by : [address] [address] NRBC abs 0.00 0.00 - 0.01 K/cumm [facility] Comment:Testing performed by : [address], [address] Blood 05/07/2024 3:12 AM INCOME AUDITOR 05/07/2024 4:40 AM INCOME AUDITOR Amaury Lezama MD LAB BLOOD ORDERABL ES Final Result Performing Organization Address [facility] Co de Phone Number [facility] [address] [facility] Department [place] [address] * Phosphorus (05/07/2024 3:12 AM INCOME AUDITOR) Phosphorus, pl 4.2 2.3 - 4.5 mg/dL Comment:Testing performed by : [address] [address] Blood 05/07/2024 3:12 AM INCOME AUDITOR 05/07/2024 4:37 AM INCOME AUDITOR Amaury Lezama MD LAB BLOOD ORDERABL ES Final Result [facility] [address] [facility] Department [place] [address] * Magnesium (05/07/2024 3:12 AM INCOME AUDITOR) [facility] Magnesium 1.9 1.4 - 2.5 mg/dL Comment:Testing performed by : [address] [address] Blood 05/07/2024 3:12 AM INCOME AUDITOR 05/07/2024 4:37 AM INCOME AUDITOR Amaury Lezama MD LAB BLOOD ORDERABL ES Final Result [facility] [address] [facility] Department [place] [address] * (ABNORMAL) Basic metabolic panel (05/07/2024 3:12 AM INCOME AUDITOR) [facility] Sodium 133(L) 135 - 145 mmol/L Comment:Testing performed by : [address] [address] Potassium, pl 3.5 3.3 - 4.9 mmol/L [facility] Comment:Testing performed by : [address] [address] Chloride 95(L) 97 - 110 mmol/L [facility] Comment:Testing performed by : [address] [address] CO2 28 22 - 32 mmol/L [facility] Comment:Testing performed by : [address] [address] Anion gap 10 2 - 15 mmol/L [facility] Comment:Testing performed by : [address] [address] BUN 40(H) 6 - 25 mg/dL [facility] Comment:Testing performed by : [address] [address] Creatinine 3.50(H) 0.80 - 1.30 mg/dL [facility] Comment:Testing performed by : [address] [address] Glucose 108 70 - 199 mg/dL [facility] [...] was last revised 2022. Testing performed by: [facility], [address] [place] [address]., [address] Calcium 9.0 8.5 - 10.3 mg/dL [facility] Comment:Testing performed by : [facility], [address] [place] [address]., [address] Blood 05/07/2024 3:12 AM INCOME AUDITOR 05/07/2024 4:37 AM INCOME AUDITOR us Edward Sauer MD LAB BLOOD ORDERABLES Final R esult [facility] [address] [facility] Department [place] [address] * (ABNORMAL) eGFR (05/06/2024 3:28 AM INCOME AUDITOR) eGFR 23(L) >=60 mL/min/1. 73 m2 Comment: [...] was last reviewed 2021. Testing performed by: [address] [address] Blood 05/06/2024 3:28 AM INCOME AUDITOR 05/06/2024 5:14 AM INCOME AUDITOR us Edward Sauer MD LAB BLOOD ORDERABLES Final R esult [facility] [address] [facility] Department [place] [address] * Differential, auto (05/06/2024 3:28 AM INCOME AUDITOR) Neutrophil abs 5.7 1.5 - 6.5 K/cumm Comment:Testing performed by : [address] [address] Imm gran abs 0.0 0.0 - 0.1 K/cumm [facility] Comment:Testing performed by : [address] [address] Lymphocyte abs 0.8 0.8 - 3.3 K/cumm [facility] Comment:Testing performed by : [address] [address] Monocyte abs 0.7 0.2 - 0.8 K/cumm [facility] Comment:Testing performed by : [address] [address] Eosinophil abs 0.1 0.0 - 0.5 K/cumm [facility] Comment:Testing performed by : [address] [address] Basophil abs 0.0 0.0 - 0.1 K/cumm [facility] Comment:Testing performed by : [address] [address] Neutrophil pct 77.4 % [facility] Comment: Interpretive Data Percent cell count reference ranges are not reported, since discordance with absolute values may lead to misinterpretation of CBC data. Current Interpretive Data was last revised on 2017. Testing performed by: [address] [address] Imm gran pct 0.4 % [facility] Comment: Interpretive Data Percent cell count reference ranges are not reported, since discordance with absolute values may lead to misinterpretation of CBC data. Current Interpretive Data was last revised on 2017. Testing performed by: [address] [address] Lymphocyte pct 11.4 % [facility] Comment: Interpretive Data Percent cell count reference ranges are not reported, since discordance with absolute values may lead to misinterpretation of CBC data. Current Interpretive Data was last revised on 2017. Testing performed by: [address] [address] Monocyte pct 8.9 % [facility] Comment: Interpretive Data Percent cell count reference ranges are not reported, since discordance with absolute values may lead to misinterpretation of CBC data. Current Interpretive Data was last revised on 2017. Testing performed by: [address] [address] Eosinophil pct 1.4 % [facility] Comment: Interpretive Data Percent cell count reference ranges are not reported, since discordance with absolute values may lead to misinterpretation of CBC data. Current Interpretive Data was last revised on 2017. Testing performed by: [address] [address] Basophil pct 0.5 % [facility] Comment: Interpretive Data Percent cell count reference ranges are not reported, since discordance with absolute values may lead to misinterpretation of CBC data. Current Interpretive Data was last revised on 2017. Testing performed by: [address] [address] Blood 05/06/2024 3:28 AM INCOME AUDITOR 05/06/2024 5:14 AM INCOME AUDITOR Amaury Lezama MD LAB BLOOD ORDERABL ES Final Result [facility] [address] [facility] Department [place] [address] * (ABNORMAL) CBC with auto differential (05/06/2024 3:28 AM INCOME AUDITOR) WBC 7.4 3.8 - 9.9 K/cumm Comment:Testing performed by : [address] [address] Hgb 9.2(L) 13.0 - 17.5 g/dL [facility] Comment:Testing performed by : [address] [address] Hct 30.1(L) 38.9 - 50.3 % [facility] Comment:Testing performed by : [address] [address] Plt 317 150 - 400 K/cumm [facility] Comment:Testing performed by : [address] [address] MPV 9.7 9.1 - 12.3 fL [facility] Comment:Testing performed by : [address] [address] RBC 3.69(L) 4.30 - 5.80 M/cumm [facility] Comment:Testing performed by : [address] [address] MCV 81.6 81.3 - 96.4 fL [facility] Comment:Testing performed by : [address] [address] MCH 24.9(L) 27.1 - 33.3 pg [facility] Comment:Testing performed by : [address] [address] MCHC 30.6(L) 32.3 - 35.7 g/dL [facility] Comment:Testing performed by : [address] [address] RDW CV 17.6(H) 11.1 - 14.9 % [facility] Comment:Testing performed by : [address] [address] RDW SD 49.9(H) 35.7 - 48.1 fL [facility] Comment:Testing performed by : [address] [address] NRBC abs 0.00 0.00 - 0.01 K/cumm [facility] Comment:Testing performed by : [address], [address] Blood 05/06/2024 3:28 AM INCOME AUDITOR 05/06/2024 5:14 AM INCOME AUDITOR Amaury Lezama MD LAB BLOOD ORDERABL ES Final Result Performing Organization Address [facility] Co de Phone Number [address] [employer] [place] [address] * (ABNORMAL) Vitamin D 25 hydroxy (05/06/2024 3:28 AM INCOME AUDITOR) [facility] Vitamin D 25-OH 9.0(L) 30.0 - 80.0 ng/mL Blood 05/06/2024 3:28 AM INCOME AUDITOR 05/06/2024 6:32 AM INCOME AUDITOR Marcus House MD LAB BLOOD ORDERABLES Final Re sult [address] [place] [employer] [place] [address] * Phosphorus (05/06/2024 3:28 AM INCOME AUDITOR) Pathologist [facility] Phosphorus, pl 3.4 2.3 - 4.5 mg/dL Comment:Testing performed by : [address] [address] Blood 05/06/2024 3:28 AM INCOME AUDITOR 05/06/2024 5:14 AM INCOME AUDITOR Amaury Lezama MD LAB BLOOD ORDERABL ES Final Result Performing Organization Address [facility] Co de Phone Number [address] [employer] [place] [address] * (ABNORMAL) PTH (05/06/2024 3:28 AM INCOME AUDITOR) Pathologist [facility] PTH 144(H) 15 - 65 pg/mL Comment:Testing performed by : [address] [address] Blood 05/06/2024 3:28 AM INCOME AUDITOR 05/06/2024 5:46 AM INCOME AUDITOR Marcus House MD LAB BLOOD ORDERABLES Final Re sult Performing Organization Address [facility] de Phone Number [address] [employer] [place] [address] * Magnesium (05/06/2024 3:28 AM INCOME AUDITOR) Pathologist [facility] Magnesium 1.8 1.4 - 2.5 mg/dL Comment:Testing performed by : [address] [address] Blood 05/06/2024 3:28 AM INCOME AUDITOR 05/06/2024 5:14 AM INCOME AUDITOR Amaury Lezama MD LAB BLOOD ORDERABL ES Final Result Performing Organization Address [facility] Co de Phone Number [address] [employer] [place] [address] * (ABNORMAL) Basic metabolic panel (05/06/2024 3:28 AM INCOME AUDITOR) [facility] Sodium 133(L) 135 - 145 mmol/L Comment:Testing performed by : [address] [address] Potassium, pl 3.6 3.3 - 4.9 mmol/L [facility] Comment:Testing performed by : [address] [address] Chloride 96(L) 97 - 110 mmol/L [facility] Comment:Testing performed by : [address] [address] CO2 27 22 - 32 mmol/L [facility] Comment:Testing performed by : [address] [address] Anion gap 10 2 - 15 mmol/L [facility] Comment:Testing performed by : [address] [address] BUN 35(H) 6 - 25 mg/dL [facility] Comment:Testing performed by : [address] [address] Creatinine 3.30(H) 0.80 - 1.30 mg/dL [facility] Comment:Testing performed by : [address] [address] Glucose 112 70 - 199 mg/dL [facility] [...] was last revised 2022. Testing performed by: [address] [address] Calcium 8.9 8.5 - 10.3 mg/dL [facility] Comment:Testing performed by : [address] [address] Blood 05/06/2024 3:28 AM INCOME AUDITOR 05/06/2024 5:14 AM INCOME AUDITOR us Edward Sauer MD LAB BLOOD ORDERABLES Final R esult [facility] [address] [facility] [place] [address] * TRANSTHORACIC ECHO (TTE) COMPLETE W DOPPLER/CF W CONTRAST (05/05/2024 10:40 AM INCOME AUDITOR) Anatomical Region Laterality Modality Ultrasound 05/05/2024 9:59 AM INCOME AUDITOR Narrative 05/06/2024 2:57 PM INCOME AUDITOR ? Adult Echocardiogram + ----- + :Name: SHARRON HEADLEY, IIIStudy Date: 05/05/2024 ?Status: MHE ?: : ? Patient Location: [facility] ICU^[id number]^MHHeight: 72 in ?: : ? Weight: 208 [...] ?LV V1 max: ? Ao mean P.0 esNl569.0 cm/sec ? Ao V2 VTI: 23.5 cm [...] Date: 05/05/2024Status: SOURAV : : Patient Location: [facility]^[place] [address]^[id number]^Height: 72 in : : : 208 lbBP: 137/59 mmHg: :: 1985 Gender: MaleBSA: 2.2 m2 : :Reason For Study: severe Chf: :Ordering Physician:: :GERALD LUCAS: :: :Performed By: Razia: :JONATHAN Baeza: + ----- + Procedure A two-dimensional transthoracic echocardiogram with color flow and Dopplerwas performed. A contrast injection of Definity was performed to improve assessment of LV function. Definity lot # is ' [id number] '. Left Ventricle LV seems mild to [...] cm/sec LV V1 max: Ao mean P.0 eiVz321.0 cm/sec Ao V2 VTI: 23.5 cm LV [...] Result * (ABNORMAL) eGFR (05/05/2024 1:45 AM INCOME AUDITOR) eGFR 25(L) >=60 mL/min/1. 73 m2 Comment: [...] was last reviewed 2021. Testing performed by: [address] [address] Blood 05/05/2024 1:45 AM INCOME AUDITOR 05/05/2024 2:48 AM INCOME AUDITOR us Edward Sauer MD LAB BLOOD ORDERABLES Final R esult [facility] [address] [facility] Department [place] [address] * Differential, auto (05/05/2024 1:45 AM INCOME AUDITOR) Neutrophil abs 5.2 1.5 - 6.5 K/cumm Comment:Testing performed by : [address] [address] Imm gran abs 0.0 0.0 - 0.1 K/cumm [facility] Comment:Testing performed by : [address] [address] Lymphocyte abs 1.4 0.8 - 3.3 K/cumm [facility] Comment:Testing performed by : [address] [address] Monocyte abs 0.7 0.2 - 0.8 K/cumm [facility] Comment:Testing performed by : [address] [place] [address] Eosinophil abs 0.2 0.0 - 0.5 K/cumm [facility] Comment:Testing performed by : [address] [address] Basophil abs 0.0 0.0 - 0.1 K/cumm [facility] Comment:Testing performed by : [address] [address] Neutrophil pct 68.6 % [facility] Comment: Interpretive Data Percent cell count reference ranges are not reported, since discordance with absolute values may lead to misinterpretation of CBC data. Current Interpretive Data was last revised on 2017. Testing performed by: [address] [address] Imm gran pct 0.5 % [facility] Comment: Interpretive Data Percent cell count reference ranges are not reported, since discordance with absolute values may lead to misinterpretation of CBC data. Current Interpretive Data was last revised on 2017. Testing performed by: [address] [address] Lymphocyte pct 18.6 % [facility] Comment: Interpretive Data Percent cell count reference ranges are not reported, since discordance with absolute values may lead to misinterpretation of CBC data. Current Interpretive Data was last revised on 2017. Testing performed by: [address] [address] Monocyte pct 8.9 % [facility] Comment: Interpretive Data Percent cell count reference ranges are not reported, since discordance with absolute values may lead to misinterpretation of CBC data. Current Interpretive Data was last revised on 2017. Testing performed by: [address] [address] Eosinophil pct 2.9 % [facility] Comment: Interpretive Data Percent cell count reference ranges are not reported, since discordance with absolute values may lead to misinterpretation of CBC data. Current Interpretive Data was last revised on 2017. Testing performed by: [address] [address] Basophil pct 0.5 % [facility] Comment: Interpretive Data Percent cell count reference ranges are not reported, since discordance with absolute values may lead to misinterpretation of CBC data. Current Interpretive Data was last revised on 2017. Testing performed by: [address] [address] Blood 05/05/2024 1:45 AM INCOME AUDITOR 05/05/2024 2:48 AM INCOME AUDITOR Amaury Lezama MD LAB BLOOD ORDERABL ES Final Result [facility] [address] [facility] Department [place] [address] * (ABNORMAL) CBC with auto differential (05/05/2024 1:45 AM INCOME AUDITOR) WBC 7.6 3.8 - 9.9 K/cumm Comment:Testing performed by : [address] [address] Hgb 10.2(L) 13.0 - 17.5 g/dL [facility] Comment:Testing performed by : [address] [address] Hct 33.5(L) 38.9 - 50.3 % [facility] Comment:Testing performed by : [address] [address] Plt 319 150 - 400 K/cumm [facility] Comment:Testing performed by : [address] [address] MPV 9.9 9.1 - 12.3 fL [facility] Comment:Testing performed by : [address] [address] RBC 4.07(L) 4.30 - 5.80 M/cumm [facility] Comment:Testing performed by : [address] [address] MCV 82.3 81.3 - 96.4 fL [facility] Comment:Testing performed by : [address] [address] MCH 25.1(L) 27.1 - 33.3 pg [facility] Comment:Testing performed by : [address] [address] MCHC 30.4(L) 32.3 - 35.7 g/dL [facility] Comment:Testing performed by : [address] [address] RDW CV 17.0(H) 11.1 - 14.9 % [facility] Comment:Testing performed by : [address] [address] RDW SD 50.0(H) 35.7 - 48.1 fL [facility] Comment:Testing performed by : [address] [address] NRBC abs 0.00 0.00 - 0.01 K/cumm [facility] Comment:Testing performed by : [address], [address] Blood 05/05/2024 1:45 AM INCOME AUDITOR 05/05/2024 2:48 AM INCOME AUDITOR Amaury Lezama MD LAB BLOOD ORDERABL ES Final Result Performing Organization Address City/[facility]/ZIP Co de Phone Number [address] [place] [address] * Phosphorus (05/05/2024 1:45 AM INCOME AUDITOR) [facility] Phosphorus, pl 3.1 2.3 - 4.5 mg/dL Comment:Testing performed by : [address], [address] Blood 05/05/2024 1:45 AM INCOME AUDITOR 05/05/2024 2:48 AM INCOME AUDITOR Amaury Lezama MD LAB BLOOD ORDERABL ES Final Result [address] [address] * Magnesium (05/05/2024 1:45 AM INCOME AUDITOR) Pathologist [facility] Magnesium 1.8 1.4 - 2.5 mg/dL Comment:Testing performed by : [address] [address] Blood 05/05/2024 1:45 AM INCOME AUDITOR 05/05/2024 2:48 AM INCOME AUDITOR Amaury Lezama MD LAB BLOOD ORDERABL ES Final Result [facility] [address] [facility] Department [place] [address] * (ABNORMAL) Basic metabolic panel (05/05/2024 1:45 AM INCOME AUDITOR) [facility] Sodium 134(L) 135 - 145 mmol/L Comment:Testing performed by : [address] [address] Potassium, pl 3.5 3.3 - 4.9 mmol/L [facility] Comment:Testing performed by : [address] [address] Chloride 95(L) 97 - 110 mmol/L [facility] Comment:Testing performed by : [address] [address] CO2 28 22 - 32 mmol/L [facility] Comment:Testing performed by : [address] [address] Anion gap 11 2 - 15 mmol/L [facility] Comment:Testing performed by : [address] [address] BUN 33(H) 6 - 25 mg/dL [facility] Comment:Testing performed by : [address] [address] Creatinine 3.10(H) 0.80 - 1.30 mg/dL [facility] Comment:Testing performed by : [address] [address] Glucose 108 70 - 199 mg/dL [facility] [...] was last revised 2022. Testing performed by: [facility], [address] [place] [address]., [address] Calcium 8.5 8.5 - 10.3 mg/dL [facility] Comment:Testing performed by : [address] [address] Blood 05/05/2024 1:45 AM INCOME AUDITOR 05/05/2024 2:48 AM INCOME AUDITOR us Edward Sauer MD LAB BLOOD ORDERABLES Final R esult Performing Organization Address [facility] Co de Phone Number [address] [place] [address] * Volume and period, urine, 24 hour (05/04/2024 9:41 AM INCOME AUDITOR) Volume, ur 7,725 mL Comment:Testing performed by : [address] [address] Period, Urine Collection 1,440 min [facility] Comment:Testing performed by : [address] [address] Urine 05/04/2024 9:41 AM INCOME AUDITOR 05/04/2024 9:41 AM INCOME AUDITOR us Amaury Lezama MD LAB URINE ORDERABL ES Final Result Performing Organization Address City/[facility] Co de Phone Number [address] [place] [address] * (ABNORMAL) Metanephrines, urine, 24 hour (05/04/2024 8:45 AM INCOME AUDITOR) Metanephrines, 24 hr ur 433(H) mcg/24H [facility] Comment: REFERENCE VALUE 44-261 (Normotensive) <400 (Hypertensive) Testing performed by: [facility], [address] [place] [address]., [address] Metanephrines Comment Not Reported [facility] Comment:Testing performed by : [facility], [address] [place] [address]., [address] Normetanephrine, 24 hour ur 1190(H) mcg/24H [facility] Comment: REFERENCE VALUE 119-451 (Normotensive) <900 (Hypertensive) Testing performed by: [facility], [address] [place] [address]., [address] Metanephrine, Total, 24 Hour Urine 1623(H) mcg/24H [facility] Comment: REFERENCE VALUE 211-646 (Normotensive) <1300 (Hypertensive) Testing performed by: [facility], [address] [place] [address]., [address] Urine 05/04/2024 8:45 AM INCOME AUDITOR 05/04/2024 9:41 AM INCOME AUDITOR us Amaury Lezama MD LAB URINE ORDERABL ES Final Result [facility] [address] [facility] Department [place] [address] [facility] * (ABNORMAL) eGFR (05/04/2024 3:45 AM INCOME AUDITOR) eGFR 25(L) >=60 mL/min/1. 73 m2 Comment: [...] was last reviewed 2021. Testing performed by: [address] [address] Blood 05/04/2024 3:45 AM INCOME AUDITOR 05/04/2024 4:46 AM INCOME AUDITOR Amaury Lezama MD LAB BLOOD ORDERABL ES Final Result [facility] [address] [facility] Department [place] [address] * Differential, auto (05/04/2024 3:45 AM INCOME AUDITOR) Neutrophil abs 5.0 1.5 - 6.5 K/cumm Comment:Testing performed by : [address] [address] Imm gran abs 0.0 0.0 - 0.1 K/cumm [facility] Comment:Testing performed by : [address] [address] Lymphocyte abs 1.5 0.8 - 3.3 K/cumm [facility] Comment:Testing performed by : [address] [address] Monocyte abs 0.6 0.2 - 0.8 K/cumm [facility] Comment:Testing performed by : [address] [address] Eosinophil abs 0.3 0.0 - 0.5 K/cumm [facility] Comment:Testing performed by : [address], [place]., [address] Basophil abs 0.0 0.0 - 0.1 K/cumm [facility] Comment:Testing performed by : [address] [address] Neutrophil pct 67.0 % [facility] Comment: Interpretive Data Percent cell count reference ranges are not reported, since discordance with absolute values may lead to misinterpretation of CBC data. Current Interpretive Data was last revised on 2017. Testing performed by: [address] [address] Imm gran pct 0.4 % [facility] Comment: Interpretive Data Percent cell count reference ranges are not reported, since discordance with absolute values may lead to misinterpretation of CBC data. Current Interpretive Data was last revised on 2017. Testing performed by: [address] [address] Lymphocyte pct 20.6 % [facility] Comment: Interpretive Data Percent cell count reference ranges are not reported, since discordance with absolute values may lead to misinterpretation of CBC data. Current Interpretive Data was last revised on 2017. Testing performed by: [address] [address] Monocyte pct 8.0 % [facility] Comment: Interpretive Data Percent cell count reference ranges are not reported, since discordance with absolute values may lead to misinterpretation of CBC data. Current Interpretive Data was last revised on 2017. Testing performed by: [address] [address] Eosinophil pct 3.5 % [facility] Comment: Interpretive Data Percent cell count reference ranges are not reported, since discordance with absolute values may lead to misinterpretation of CBC data. Current Interpretive Data was last revised on 2017. Testing performed by: [address] [address] Basophil pct 0.5 % [facility] Comment: Interpretive Data Percent cell count reference ranges are not reported, since discordance with absolute values may lead to misinterpretation of CBC data. Current Interpretive Data was last revised on 2017. Testing performed by: [address] [address] Blood 05/04/2024 3:45 AM INCOME AUDITOR 05/04/2024 4:57 AM INCOME AUDITOR Amaury Lezama MD LAB BLOOD ORDERABL ES Final Result [facility] [address] [facility] Department [place] [address] * (ABNORMAL) CBC with auto differential (05/04/2024 3:45 AM INCOME AUDITOR) WBC 7.4 3.8 - 9.9 K/cumm Comment:Testing performed by : [address] [address] Hgb 9.5(L) 13.0 - 17.5 g/dL [facility] Comment:Testing performed by : [address] [address] Hct 30.6(L) 38.9 - 50.3 % [facility] Comment:Testing performed by : [address] [address] Plt 334 150 - 400 K/cumm [facility] Comment:Testing performed by : [address] [address] MPV 10.1 9.1 - 12.3 fL [facility] Comment:Testing performed by : [address] [address] RBC 3.79(L) 4.30 - 5.80 M/cumm [facility] Comment:Testing performed by : [facility], [address] [place] [address]., [address] MCV 80.7(L) 81.3 - 96.4 fL [facility] Comment:Testing performed by : [address] [address] MCH 25.1(L) 27.1 - 33.3 pg [facility] Comment:Testing performed by : [address] [address] MCHC 31.0(L) 32.3 - 35.7 g/dL [facility] Comment:Testing performed by : [address] [address] RDW CV 16.7(H) 11.1 - 14.9 % [facility] Comment:Testing performed by : [address] [address] RDW SD 48.8(H) 35.7 - 48.1 fL [facility] Comment:Testing performed by : [address] [address] NRBC abs 0.00 0.00 - 0.01 K/cumm [facility] Comment:Testing performed by : [address] [address] Blood 05/04/2024 3:45 AM INCOME AUDITOR 05/04/2024 4:57 AM INCOME AUDITOR Amaury Lezama MD LAB BLOOD ORDERABL ES Final Result [facility] [address] [facility] Department [place] [address] * Phosphorus (05/04/2024 3:45 AM INCOME AUDITOR) Phosphorus, pl 3.1 2.3 - 4.5 mg/dL Comment:Testing performed by : [address] [address] Blood 05/04/2024 3:45 AM INCOME AUDITOR 05/04/2024 4:46 AM INCOME AUDITOR Amaury Lezama MD LAB BLOOD ORDERABL ES Final Result Performing Organization Address [facility] Co de Phone Number [address] [address] * Magnesium (05/04/2024 3:45 AM INCOME AUDITOR) Magnesium 1.9 1.4 - 2.5 mg/dL Comment:Testing performed by : [address] [address] Blood 05/04/2024 3:45 AM INCOME AUDITOR 05/04/2024 4:46 AM INCOME AUDITOR Amaury Lezama MD LAB BLOOD ORDERABL ES Final Result Performing Organization Address [facility] de Phone Number [address] [address] * (ABNORMAL) Basic metabolic panel (05/04/2024 3:45 AM INCOME AUDITOR) Pathologist [facility] Sodium 136 135 - 145 mmol/L Comment:Testing performed by : [address] [address] Potassium, pl 3.6 3.3 - 4.9 mmol/L [facility] Comment:Testing performed by : [address] [address] Chloride 97 97 - 110 mmol/L [facility] Comment:Testing performed by : [address] [address] CO2 28 22 - 32 mmol/L [facility] Comment:Testing performed by : [address] [address] Anion gap 11 2 - 15 mmol/L [facility] Comment:Testing performed by : [address] [address] BUN 33(H) 6 - 25 mg/dL [facility] Comment:Testing performed by : [address] [address] Creatinine 3.10(H) 0.80 - 1.30 mg/dL [facility] Comment:Testing performed by : [address] [address] Glucose 93 70 - 199 mg/dL [facility] [...] was last revised 2022. Testing performed by: [address] [address] Calcium 8.5 8.5 - 10.3 mg/dL [facility] Comment:Testing performed by : [address] [address] Blood 05/04/2024 3:45 AM INCOME AUDITOR 05/04/2024 4:46 AM INCOME AUDITOR Amaury Lezama MD LAB BLOOD ORDERABL ES Final Result Performing Organization Address City/State/[facility] Co de Phone Number [facility] [address] [facility] Department of Laboratories [place], [place] [id number] * US Renal Doppler (05/03/2024 9:40 AM INCOME AUDITOR) Anatomical Region Laterality Modality Vascular N/A Ultrasound 05/03/2024 Narrative 05/07/2024 6:55 AM INCOME AUDITOR Power[employer] Job ID: [id number] PowerCard Document ID: [id number] Dictated date/time: [id number] BILATERAL RENAL DOPPLER REASON FOR EXAM FMD. [...] artery stenosis bilaterally. Job ID/Internal Job ID: [id number] Amaury Lezama MD IMG US PROCEDURES Final Result * US Kidney Complete (aka RENAL) (05/03/2024 7:27 AM INCOME AUDITOR) Anatomical Region Laterality Modality Kidney N/A Ultrasound 05/03/2024 8:00 AM INCOME AUDITOR Narrative 05/03/2024 8:01 AM INCOME AUDITOR EXAM DESCRIPTION: US KIDNEY COMPLETE REASON FOR [...] AM T: ??05/03/2024 8:01 AM Report ID: [id number] Reading Location: ??[id number] Procedure Note Jaskaran Tobin Jr., MD - [...] Jaskaran Tobin M.D. CH: LINDSEY Report ID: [id number] Reading Location: [place] [address] us Amaury Johana Lezama MD IMG US PROCEDURES Final Result * (ABNORMAL) eGFR (05/03/2024 5:28 AM INCOME AUDITOR) eGFR 24(L) >=60 mL/min/1. 73 m2 Comment: [...] was last reviewed 2021. Testing performed by: [address] [address] Blood 05/03/2024 5:28 AM INCOME AUDITOR 05/03/2024 5:35 AM INCOME AUDITOR us Timmy Hernandez MD LAB BLOOD ORDERABLES Final Result [facility] [address] [facility] Department [place] [address] * Differential, auto (05/03/2024 5:28 AM INCOME AUDITOR) Neutrophil abs 4.5 1.5 - 6.5 K/cumm Comment:Testing performed by : [address] [address] Imm gran abs 0.0 0.0 - 0.1 K/cumm [facility] Comment:Testing performed by : [address] [address] Lymphocyte abs 1.4 0.8 - 3.3 K/cumm [facility] Comment:Testing performed by : [address] [address] Monocyte abs 0.4 0.2 - 0.8 K/cumm [facility] Comment:Testing performed by : [address] [address] Eosinophil abs 0.2 0.0 - 0.5 K/cumm [facility] Comment:Testing performed by : [address] [address] Basophil abs 0.0 0.0 - 0.1 K/cumm [facility] Comment:Testing performed by : [address] [address] Neutrophil pct 68.6 % [facility] Comment: Interpretive Data Percent cell count reference ranges are not reported, since discordance with absolute values may lead to misinterpretation of CBC data. Current Interpretive Data was last revised on 2017. Testing performed by: [address] [address] Imm gran pct 0.3 % [facility] Comment: Interpretive Data Percent cell count reference ranges are not reported, since discordance with absolute values may lead to misinterpretation of CBC data. Current Interpretive Data was last revised on 2017. Testing performed by: [address] [address] Lymphocyte pct 21.3 % [facility] Comment: Interpretive Data Percent cell count reference ranges are not reported, since discordance with absolute values may lead to misinterpretation of CBC data. Current Interpretive Data was last revised on 2017. Testing performed by: [address] [address] Monocyte pct 6.2 % [facility] Comment: Interpretive Data Percent cell count reference ranges are not reported, since discordance with absolute values may lead to misinterpretation of CBC data. Current Interpretive Data was last revised on 2017. Testing performed by: [address] [address] Eosinophil pct 3.0 % [facility] Comment: Interpretive Data Percent cell count reference ranges are not reported, since discordance with absolute values may lead to misinterpretation of CBC data. Current Interpretive Data was last revised on 2017. Testing performed by: [address] [address] Basophil pct 0.6 % [facility] Comment: Interpretive Data Percent cell count reference ranges are not reported, since discordance with absolute values may lead to misinterpretation of CBC data. Current Interpretive Data was last revised on 2017. Testing performed by: [address] [address] Blood 05/03/2024 5:28 AM INCOME AUDITOR 05/03/2024 5:35 AM INCOME AUDITOR Timmy Hernandez MD LAB BLOOD ORDERABLES Final Result [facility] [address] [facility] Department [place] [address] * (ABNORMAL) CBC with auto differential (05/03/2024 5:28 AM INCOME AUDITOR) [facility] Signature WBC 6.6 3.8 - 9.9 K/cumm Comment:Testing performed by : [address] [address] Hgb 9.1(L) 13.0 - 17.5 g/dL [facility] Comment:Testing performed by : [address] [address] Hct 29.7(L) 38.9 - 50.3 % [facility] Comment:Testing performed by : [address] [address] Plt 304 150 - 400 K/cumm [facility] Comment:Testing performed by : [address] [address] MPV 9.1 9.1 - 12.3 fL [facility] Comment:Testing performed by : [address] [address] RBC 3.70(L) 4.30 - 5.80 M/cumm [facility] Comment:Testing performed by : [address] [address] MCV 80.3(L) 81.3 - 96.4 fL [facility] Comment:Testing performed by : [address] [address] MCH 24.6(L) 27.1 - 33.3 pg [facility] Comment:Testing performed by : [address] [address] MCHC 30.6(L) 32.3 - 35.7 g/dL [facility] Comment:Testing performed by : [address] [address] RDW CV 16.6(H) 11.1 - 14.9 % [facility] Comment:Testing performed by : [address] [address] RDW SD 48.3(H) 35.7 - 48.1 fL [facility] Comment:Testing performed by : [address] [address] NRBC abs 0.00 0.00 - 0.01 K/cumm [facility] Comment:Testing performed by : [address] [address] Blood 05/03/2024 5:28 AM INCOME AUDITOR 05/03/2024 5:35 AM INCOME AUDITOR Timmy Hernandez MD LAB BLOOD ORDERABLES Final Result Performing Organization Address City/[facility] Co de Phone Number [address] [address] * Phosphorus (05/03/2024 5:28 AM INCOME AUDITOR) Phosphorus, pl 3.4 2.3 - 4.5 mg/dL Comment:Testing performed by : [address] [address] Blood 05/03/2024 5:28 AM INCOME AUDITOR 05/03/2024 5:35 AM INCOME AUDITOR Timmy Hernandez MD LAB BLOOD ORDERABLES Final Result Performing Organization Address [facility] Co de Phone Number [address] [employer] [place] [address] * Magnesium (05/03/2024 5:28 AM INCOME AUDITOR) Magnesium 2.1 1.4 - 2.5 mg/dL Comment:Testing performed by : [address] [address] Blood 05/03/2024 5:28 AM INCOME AUDITOR 05/03/2024 5:35 AM INCOME AUDITOR us Timmy Hernandez MD LAB BLOOD ORDERABLES Final Result Performing Organization Address City/[facility]/ZIP Co de Phone Number [address] [employer] [place] [address] * (ABNORMAL) Comprehensive metabolic panel (05/03/2024 5:28 AM INCOME AUDITOR) Sodium 132(L) 135 - 145 mmol/L Comment:Testing performed by : [address] [address] Potassium, pl 3.3 3.3 - 4.9 mmol/L [facility] Comment:Testing performed by : [address] [address] Chloride 95(L) 97 - 110 mmol/L [facility] Comment:Testing performed by : [address] [address] CO2 27 22 - 32 mmol/L [facility] Comment:Testing performed by : [address] [address] Anion gap 10 2 - 15 mmol/L [facility] Comment:Testing performed by : [address] [address] BUN 38(H) 6 - 25 mg/dL [facility] Comment:Testing performed by : [address] [address] Creatinine 3.20(H) 0.80 - 1.30 mg/dL [facility] Comment:Testing performed by : [address] [address] Glucose 122 70 - 199 mg/dL [facility] Comment: Interpretive Data Fasting glucose >/= [...] was last revised 2022. Testing performed by: [address] [address] Calcium 8.0(L) 8.5 - 10.3 mg/dL [facility] Comment:Testing performed by : [address] [address] Bilirubin, total 0.5 0.1 - 1.2 mg/dL [facility] Comment:Testing performed by : [address] [address] Protein, pl 6.5 6.5 - 8.5 g/dL [facility] Comment:Testing performed by : [address] [address] Albumin 3.0(L) 3.5 - 5.0 g/dL [facility] Comment:Testing performed by : [address] [address] Alk phos 78 40 - 130 Units/L [facility] Comment:Testing performed by : [address] [address] ALT 35 7 - 55 Units/L [facility] Comment:Testing performed by : [address] [address] AST 24 10 - 50 Units/L [facility] Comment:Testing performed by : [address] [address] Blood 05/03/2024 5:28 AM INCOME AUDITOR 05/03/2024 5:35 AM INCOME AUDITOR us Timmy Hernandez MD LAB BLOOD ORDERABLES Final Result [facility] [address] [facility] Department [place] [address] * (ABNORMAL) Protein / creatinine ratio, urine, random (05/02/2024 5:41 PM INCOME AUDITOR) Protein, ur, quant 75.0 mg/dL Comment: Interpretive Data No reference range established. Current interpretive data was last revised 2018. Testing performed by: [address] [address] Creatinine Ur 60.1 mg/dL [facility] Comment: Interpretive Data No reference range established. Current interpretive data was last revised 2018. Testing performed by: [facility], [address] [place] [address]., [address] Protein/creatinin e ratio 1,247.9(H ) 0.0 - 180.0 mg/g CR [facility] Comment:Testing performed by : [facility], [address] [place] [address]., [address] Urine 05/02/2024 5:41 PM INCOME AUDITOR 05/02/2024 5:52 PM INCOME AUDITOR us Amaury Lezama MD LAB URINE ORDERABL ES Final Result [facility] [address] [facility] Department [place] [address] * (ABNORMAL) eGFR (05/02/2024 4:21 PM INCOME AUDITOR) eGFR 22(L) >=60 mL/min/1. 73 m2 Comment: [...] was last reviewed 2021. Testing performed by: [address] [address] Blood 05/02/2024 4:21 PM INCOME AUDITOR 05/02/2024 4:45 PM INCOME AUDITOR Rosa Sofia MD LAB BLOOD ORDERABLES Abigail l Result Performing Organization Address [facility] de Phone Number [facility] [address] [place] [address] * (ABNORMAL) Metanephrines, fractionated free, blood (05/02/2024 4:21 PM INCOME AUDITOR) Metanephrines 0.47 <0.50 nmol/L [facility] Comment: ADDITIONAL INFORMATION This test was developed and its performance characteristics determined by [facility] in a manner consistent with CLIA requirements. This test has not been cleared or approved by the U.S. Food and Drug Administration. Test Performed by: [facility] [place] [address] [employer] Rigger: Darian Koo Ph.D.; CLIA# [id number] Testing performed by: [address] [address] Normetanephrines 1.4(H) <0.90 nmol/L [facility] Comment:Testing performed by : [address] [address] Blood 05/02/2024 4:21 PM INCOME AUDITOR 05/02/2024 4:45 PM INCOME AUDITOR Amaury Lezama MD LAB BLOOD ORDERABL ES Final Result Performing Organization Address [facility] Co de Phone Number [facility] [place] [address] [place] ref Lab * Renin activity (05/02/2024 4:21 PM INCOME AUDITOR) Pathologist [facility] Renin 15 ng/mL/H [place] ref Lab Comment: REFERENCE VALUE (Peripheral vein specimen) Na-deplete, upright: ??Mean: 5.9 ??Range: 2.9-10.8 Na-replete, upright: ??Mean: 1.0 ??Range: < or =0.6-3.0 ADDITIONAL INFORMATION Testing performed by Liquid Chromatography-Tandem Mass Spectrometry (LC-MS/MS). This test was developed and its performance characteristics determined by [facility] in a manner consistent with CLIA requirements. This test has not been cleared or approved by the U.S. Food and Drug Administration. Test Performed by: [facility] [address] [address] [employer] Har[employer] Rigger: Darian Koo Ph.D.; CLIA# [id number] Testing performed by: [facility], [address] [place] [address]., [address] Blood 05/02/2024 4:21 PM INCOME AUDITOR 05/02/2024 4:24 PM INCOME AUDITOR Amaury Lezama MD LAB BLOOD ORDERABL ES Final Result [facility] [address] [facility] Department [place] [address] [place] ref Lab * HIV 1/2 Antibody plus p24 Antigen Blood (05/02/2024 4:21 PM INCOME AUDITOR) [facility] HIV 1/2 ab + p24 ag Nonreactive Nonreactive Comment:Nonreactive for HIV- 1 antigen and HIV-1/HIV-2 antibodies. No laboratory evidence of HIV infection. If acute HIV infection is suspected, consider testing for HIV-1 RNA. Current interpretive data was last revised on 22. Blood 05/02/2024 4:2 1 PM INCOME AUDITOR 05/02/2024 6:24 PM INCOME AUDITOR Amaury Lezama MD LAB MICROBIOLOGY - GENERAL ORDERABLES Final Result Performing Organization Address [facility] Co de Phone Number [facility]VI [address] [address] * Aldosterone (05/02/2024 4:21 PM INCOME AUDITOR) Aldosterone 15 <=21 ng/dL [place] ref Lab Comment: ADDITIONAL INFORMATION Reference range for patients 11 years and older is based on upright A.M. collection from subjects without sodium restrictions. This test was developed and its performance characteristics determined by [facility] in a manner consistent with CLIA requirements. This test has not been cleared or approved by the U.S. Food and Drug Administration. Test Performed by: [facility] - [place] [address] [place] [address] [employer] Rigger: Darian Koo Ph.D.; CLIA# [id number] Testing performed by: [address] [address] Blood 05/02/2024 4:21 PM INCOME AUDITOR 05/02/2024 4:45 PM INCOME AUDITOR Amaury Lezama MD LAB BLOOD ORDERABL ES Final Result Performing Organization Address [facility] de Phone Number [facility] [address] [employer] [place] [address] [place] ref Lab * (ABNORMAL) Erythrocyte sedimentation rate (05/02/2024 4:21 PM INCOME AUDITOR) Pathologist [facility] Erythrocyte sedimentation rate 61(H) 1 - 15 mm/hr Comment:Testing performed by : [address] [address] Blood 05/02/2024 4:21 PM INCOME AUDITOR 05/02/2024 4:45 PM INCOME AUDITOR Amaury Lezama MD LAB BLOOD ORDERABL ES Final Result Performing Organization Address [facility] Co de Phone Number [facility] [address] [facility] [employer] [place] [address] * (ABNORMAL) D-dimer, quantitative (05/02/2024 4:21 PM INCOME AUDITOR) D-Dimer 880(H) <=499 ng/mL FEU Comment: Interpretive [...] last revised on 2019. Testing performed by: [address] [address] Blood 05/02/2024 4:21 PM INCOME AUDITOR 05/02/2024 4:45 PM INCOME AUDITOR Amaury Lezama MD LAB BLOOD ORDERABL ES Final Result Performing Organization Address [facility] Co de Phone Number [facility] [employer] [place] [address] * CRP (acute phase) (05/02/2024 4:21 PM INCOME AUDITOR) CRP 5.0 <=10.0 mg/L Comment:Testing performed by : [address] [address] Blood 05/02/2024 4:21 PM INCOME AUDITOR 05/02/2024 4:45 PM INCOME AUDITOR Amaury Lezama MD LAB BLOOD ORDERABL ES Final Result Performing Organization Address [facility] de Phone Number [address] [employer] [place] [address] * Magnesium (05/02/2024 4:21 PM INCOME AUDITOR) Pathologist [facility] Magnesium 1.8 1.4 - 2.5 mg/dL Comment:Testing performed by : [address] [address] Blood 05/02/2024 4:21 PM INCOME AUDITOR 05/02/2024 4:45 PM INCOME AUDITOR Rosa Sofia MD LAB BLOOD ORDERABLES Abigail l Result Performing Organization Address [facility] de Phone Number [address] [employer] [place] [address] * Cortisol (05/02/2024 4:21 PM INCOME AUDITOR) Pathologist [facility] Cortisol 12.5 4.8 - 19.5 mcg/dl Blood 05/02/2024 4:21 PM INCOME AUDITOR 05/02/2024 6:24 PM INCOME AUDITOR Amaury Lezama MD LAB BLOOD ORDERABL ES Final Result Performing Organization Address [facility] de Phone Number [address] [employer] [place] [address] * (ABNORMAL) Basic metabolic panel (05/02/2024 4:21 PM INCOME AUDITOR) Pathologist [facility] Sodium 136 135 - 145 mmol/L Comment:Testing performed by : [address] [address] Potassium, pl 3.4 3.3 - 4.9 mmol/L [facility] Comment:Testing performed by : [address] [address] Chloride 97 97 - 110 mmol/L [facility] Comment:Testing performed by : [address] [address] CO2 26 22 - 32 mmol/L [facility] Comment:Testing performed by : [address] [address] Anion gap 13 2 - 15 mmol/L [facility] Comment:Testing performed by : [address] [address] BUN 39(H) 6 - 25 mg/dL [facility] Comment:Testing performed by : [address] [address] Creatinine 3.40(H) 0.80 - 1.30 mg/dL [facility] Comment:Testing performed by : [address] [address] Glucose 122 70 - 199 mg/dL [facility] [...] was last revised 2022. Testing performed by: [address] [address] Calcium 8.2(L) 8.5 - 10.3 mg/dL [facility] Comment:Testing performed by : [address] [address] Blood 05/02/2024 4:21 PM INCOME AUDITOR 05/02/2024 4:45 PM INCOME AUDITOR Rosa Sofia MD LAB BLOOD ORDERABLES Abigail soria Result [facility] [address] [facility] Department of Laboratories [place], [place] [id number] * (ABNORMAL) Troponin T high-sensitivity 6-hour (05/02/2024 10:58 AM INCOME AUDITOR) Trop T hs 89(H) <=22 ng/L Comment: Interpretive Data For further hscTnT resources including the diagnostic algorithm and an aid in interpretation, copy and paste this link: https://nrl.testcatalog.org/show/hsTrop Current Interpretive Data last revised 2020. Testing performed by: [facility], [address] [place] [address]., [address] Trop T hs pct delta -15 % [facility] SNIDER Comment:Testing performed by : [address] [address] Trop T hs interp Equivocal [facility] SNIDER Comment:Testing performed by : [facility], [address] [place] [address], [place]., [address] Blood 05/02/2024 10:5 8 AM INCOME AUDITOR 05/02/2024 11:03 AM INCOME AUDITOR Alfred Thompson DO LAB BLOOD ORDERABLES Final Result [facility] [address] [facility] Department [place] [address] * Critical Care (05/02/2024 10:19 AM INCOME AUDITOR) Narrative Rosa Sofia MD - 05/02/2024 10:19 AM INCOME AUDITOR Rosa Sofia MD ? 05/02/2024 ??4:59 PM [...] plan with the patient's team and other medical/human performance consultant staff. This time was in addition to and separate from care provided by other practitioners on this day of service. ?? Rosa Sofia MD IN CLINIC/BEDSIDE ORDERAB LES Final Result * (ABNORMAL) Troponin T high-sensitivity 4-hour (05/02/2024 8:13 AM INCOME AUDITOR) Trop T hs 90(H) <=22 ng/L Comment: Interpretive Data For further hscTnT resources including the diagnostic algorithm and an aid in interpretation, copy and paste this link: https://nrl.testcatalog.org/show/hsTrop Current Interpretive Data last revised 2020. Testing performed by: [address] [address] Trop T hs pct delta -14 % [facility] Comment:Testing performed by : [address] [address] Trop T hs interp Equivocal [facility] Comment:Testing performed by : [address] [address] Blood 05/02/2024 8:13 AM INCOME AUDITOR 05/02/2024 8:18 AM INCOME AUDITOR Alfred Thompson DO LAB BLOOD ORDERABLES Final Result Performing Organization Address City/[facility]/ZIP Co de Phone Number [address] [place] [address] * Folate (05/02/2024 7:59 AM INCOME AUDITOR) Folic acid 9.4 >=5.0 ng/mL Comment:Testing performed by : [address] [address] Blood 05/02/2024 7:59 AM INCOME AUDITOR 05/02/2024 8:18 AM INCOME AUDITOR Amaury Lezama MD LAB BLOOD ORDERABL ES Final Result [address] [place] [address] * Vitamin B12 (05/02/2024 7:59 AM INCOME AUDITOR) Vitamin B12 721 230 - 1,250 pg/mL Comment:Testing performed by : [address] [address] Blood 05/02/2024 7:59 AM INCOME AUDITOR 05/02/2024 8:18 AM INCOME AUDITOR Amaury Lezama MD LAB BLOOD ORDERABL ES Final Result [facility] [address] [facility] Department [place] [address] * Drugs of Abuse Screen, Urine with Reflex Confirmation (05/02/2024 7:51 AM INCOME AUDITOR) Amphetamine, ur Not Detected CutOff 500ng/mL Comment: Interpretive Data - Amphetamines: ??Samples containing greater than 500 ng/mL d-methamphetamine ??or other cross-reacting amphetamine compounds are reported as positive. ??Amphetamine immunoassays are subject to significant false positive rates due to cross-reactivity of non-amphetamine drugs. Confirmatory testing required for definitive results. Current Interpretive Data was last reviewed 2022. Testing performed by: [address] [address] Barbiturates, ur Not Detected CutOff 200ng/mL [facility] Comment: Interpretive Data - Barbiturates: ??Samples containing greater than 200 ng/mL secobarbital or other cross-reacting barbiturate compounds are reported as positive. ??False positive and false negative results are possible. Confirmatory testing required for definitive results. Current Interpretive Data was last reviewed 2022. Testing performed by: [address] [address] Benzodiazepines, ur Not Detected CutOff 100ng/mL [facility] Comment: Interpretive Data - Benzodiazepines: ??Samples containing greater than 100 ng/mL nordiazepam or other cross-reacting compounds are reported as positive. False positive and false negative results are possible. Confirmatory testing required for definitive results. Current Interpretive Data was last reviewed 2022. Testing performed by: [address] [address] Cannabinoids, ur Not Detected CutOff 50 ng/mL [facility] Comment: Interpretive Data - Cannabinoids: ??Samples containing greater than 50 ng/mL delta-9 THC -COOH or other cross-reacting compounds are reported as positive. ??False positive and false negative results are possible. ??Confirmatory testing required for definitive results. Current Interpretive Data was last reviewed 2022. Testing performed by: [address] [address] Cocaine, ur Not Detected CutOff 150ng/mL [facility] Comment: Interpretive Data - Cocaine: ??Samples containing greater than 150 ng/mL benzoylecgonine or other cross-reacting compounds are reported as positive. False positive and false negative results are possible. Confirmatory testing required for definitive results. Current Interpretive Data was last reviewed 2022. Testing performed by: [address] [address] Fentanyl, Ur Not Detected Cutoff 1 ng/mL [facility] Comment: Interpretive Data - Fentanyl: ??Samples containing greater than 1 ng/mL fentanyl or other cross-reacting fentanyl compounds are reported as positive. ??False positive and false negative results are possible. Confirmatory testing required for definitive results. Current Interpretive Data was last reviewed 2022. Testing performed by: [address] [address] Methadone, ur Not Detected CutOff 300ng/mL [facility] Comment: Interpretive Data - Methadone: ??Samples containing greater than 300 ng/mL d,l-methadone or other cross-reacting compounds are reported as positive. ??False positive and false negative results are possible. Confirmatory testing required for definitive results. Current Interpretive Data was last reviewed 2022. Testing performed by: [address] [address] Opiates, ur Not Detected CutOff 300ng/mL [facility] Comment: Interpretive Data - Opiates: ??Samples containing greater than 300 ng/mL morphine or other cross-reacting compounds are reported as positive. ??False positive and false negative results are possible. Confirmatory testing required for definitive results. Current Interpretive Data was last reviewed 2022. Testing performed by: [address] [address] Oxycodone, ur Not Detected CutOff 100ng/mL [facility] Comment: Interpretive Data - Oxycodone: ??Samples containing greater than 100 ng/mL oxycodone or other cross-reacting compounds are reported as ??positive. ??False positive and false negative results are possible. Confirmatory testing required for definitive results. Current Interpretive Data was last reviewed 2022. Testing performed by: [address] [address] Phencyclidine, ur Not Detected CutOff 25 ng/mL [facility] Comment: Interpretive Data - Phencyclidine: ??Samples containing greater than 25 ng/mL phencyclidine or other cross-reacting compounds are reported as positive. ??False positive and false negative results are possible. Confirmatory testing required for definitive results. Current Interpretive Data was last reviewed 2022. Testing performed by: [address] [address] Urine Creatinine 15 mg/dL [facility] Comment: Interpretive Data Urine Creatinine: < 10 mg/dL is extremely dilute = or > 10 but < 20 mg/dL is dilute = or > 20 mg/dL is normal Current Interpretive Data was last revised on 2017. Testing performed by: [address] [address] Urine 05/02/2024 7:51 AM INCOME AUDITOR 05/02/2024 8:18 AM INCOME AUDITOR Narrative [facility] - 05/02/2024 9:02 AM INCOME AUDITOR Drug of Abuse screening is performed by immunoassay for medical purposes only. ??This is not to be used for Pain Management purposes. ??If Detected, confirmation testing will be performed for Amphetamines, Cocaine, Fentanyl, Methadone, Opiates, Oxycodone or Phencyclidine. Amaury Lezama MD LAB URINE ORDERABL ES Final Result [facility] [address] [facility] Department [place] [address] * (ABNORMAL) Urinalysis reflex to microscopic and culture Urine (05/02/2024 7:51 AM INCOME AUDITOR) Color, ur Straw Yellow Comment:Testing performed by : [address] [address] Clarity, ur Clear Clear [facility] Comment:Testing performed by : [address] [address] Specific gravity, ur 1.005 1.003 - 1.030 [facility] Comment:Testing performed by : [address] [address] pH, urine 6.5 [facility] Comment: Interpretive Data ? Urine pH is affected by diet, medications, systemic acid-base disturbances, and renal tubular function. ??pH may affect urinary stone formation. ??For example, urine pH below 6.0 may help reduce the tendency for calcium phosphate stones and pH greater than 6.0 may reduce the tendency for uric acid stone formation. Source: [facility] [employer] Current Interpretive Data was last revised on 2017 Testing performed by: [address] [address] Protein, ur ql Trace(A) Negative [facility] Comment:Testing performed by : [address] [address] Glucose, ur ql Negative Negative [facility] Comment:Testing performed by : [address] [address] Ketones, ur Negative Negative [facility] Comment:Testing performed by : [address] [address] Bilirubin, ur Negative Negative [facility] Comment:Testing performed by : [address] [address] Blood, ur Trace(A) Negative [facility] Comment:Testing performed by : [address] [address] Urobilinogen, ur <2.0 <2.0 mg/dL [facility] Comment:Testing performed by : [address] [address] Nitrite, ur Negative Negative [facility] Comment:Testing performed by : [address] [address] Leukocyte esterase, ur Negative Negative [facility] Comment:Testing performed by : [address] [address] UA reflex comment Reflex to microscopic UA will be performed. [facility] Comment:Testing performed by : [address] [address] Urine 05/02/2024 7:51 AM INCOME AUDITOR 05/02/2024 8:18 AM INCOME AUDITOR Amaury Lezama MD LAB MICROBIOLOGY - GENERAL ORDERABLES Final Result Performing Organization Address [facility] de Phone Number [facility] SNIDER [facility] [place], [place] [id number] * (ABNORMAL) Urinalysis, microscopic only (05/02/2024 7:51 AM INCOME AUDITOR) WBC, ur 0-5 0 - 5 /HPF Comment:Testing performed by : [address] [address] RBC, ur 0-2 0 - 2 /HPF [facility] Comment:Testing performed by : [address] [address] Bacteria, ur Trace(A) [facility] Comment:Testing performed by : [address] [address] Mucous, ur Present(A) [facility] Comment:Testing performed by : [address] [address] Culture Reflex Comment Reflex conditions for urine culture (WBC >10) not met. [facility] Comment:Testing performed by : [address] [address] Urine 05/02/2024 7:51 AM INCOME AUDITOR 05/02/2024 8:18 AM INCOME AUDITOR Amaury Lezama MD LAB URINE ORDERABL ES Final Result Performing Organization Address [facility] de Phone Number [facility] [place] [address] * (ABNORMAL) Troponin T high-sensitivity 2-hour (05/02/2024 6:25 AM INCOME AUDITOR) Trop T hs 96(H) <=22 ng/L Comment: Interpretive Data For further hscTnT resources including the diagnostic algorithm and an aid in interpretation, copy and paste this link: https://nrl.testcatalog.org/show/hsTrop Current Interpretive Data last revised 2020. Testing performed by: [address] [address] Trop T hs pct delta -9 % [facility] Comment:Testing performed by : [address] [address] Trop T hs interp Equivocal [facility] Comment:Testing performed by : [address] [address] Blood 05/02/2024 6:25 AM INCOME AUDITOR 05/02/2024 6:27 AM INCOME AUDITOR us Alfred Thompson DO LAB BLOOD ORDERABLES Final Result Performing Organization Address [facility] Co de Phone Number AMADOU[address] [address] * Thyroid Function Vega (05/02/2024 6:25 AM INCOME AUDITOR) [facility] TSH 1.60 0.30 - 4.20 mcIUnit/mL Comment:Testing performed by : [address] [address] Blood 05/02/2024 6:25 AM INCOME AUDITOR 05/02/2024 7:23 AM INCOME AUDITOR us Amaury Lezama MD LAB BLOOD ORDERABL ES Final Result Performing Organization Address City/[facility]/ZIP Co de Phone Number [place] [id number] [place] [address] * (ABNORMAL) Iron profile w/ IBC (05/02/2024 6:25 AM INCOME AUDITOR) Iron 17(L) 50 - 150 mcg/dL Comment:Testing performed by : [address] [address] TIBC 284 250 - 400 mcg/dL [facility] SNIDER Comment:Testing performed by : [address] [address] Transferrin saturation 6(L) 20 - 50 % [facility] Comment:Testing performed by : [address], [address] Blood 05/02/2024 6:25 AM INCOME AUDITOR 05/02/2024 7:23 AM INCOME AUDITOR Amaury Lezama MD LAB BLOOD ORDERABL ES Final Result Performing Organization Address [facility] Co de Phone Number [address] [employer] [place] [address] * CRP (acute phase) (05/02/2024 6:25 AM INCOME AUDITOR) CRP 5.4 <=10.0 mg/L Comment:Testing performed by : [address], [address] Blood 05/02/2024 6:25 AM INCOME AUDITOR 05/02/2024 7:23 AM INCOME AUDITOR Amaury Lezama MD LAB BLOOD ORDERABL ES Final Result Performing Organization Address City/[facility]/ZIP Co de Phone Number [address] [address] * Ferritin (05/02/2024 6:25 AM INCOME AUDITOR) Ferritin 174 30 - 400 ng/mL Comment:Testing performed by : [address] [address] Blood 05/02/2024 6:25 AM INCOME AUDITOR 05/02/2024 7:23 AM INCOME AUDITOR us Amaury Lezama MD LAB BLOOD ORDERABL ES Final Result Performing Organization Address [facility] Co de Phone Number [facility] [address] [facility] [place] [address] * (ABNORMAL) Troponin T high-sensitivity series (baseline, 2hr, 4hr, 6hr) (05/02/2024 4:41 AM INCOME AUDITOR) Trop T hs 105(H) <=22 ng/L Comment: Interpretive Data For further hscTnT resources including the diagnostic algorithm and an aid in interpretation, copy and paste this link: https://nrl.testcatalog.org/show/hsTrop Current Interpretive Data last revised 2020. Testing performed by: [facility], [address] [place] [address]., [address] Blood 05/02/2024 4:41 AM INCOME AUDITOR 05/02/2024 4:45 AM INCOME AUDITOR us Alfred Thompson DO LAB BLOOD ORDERABLES Final Result Performing Organization Address [facility] Co de Phone Number [facility] [address] [facility] [place] [address] * (ABNORMAL) eGFR (05/02/2024 4:41 AM INCOME AUDITOR) eGFR 23(L) >=60 mL/min/1. 73 m2 Comment: [...] was last reviewed 2021. Testing performed by: [address] [address] Blood 05/02/2024 4:41 AM INCOME AUDITOR 05/02/2024 4:45 AM INCOME AUDITOR us Alfred Thompson DO LAB BLOOD ORDERABLES Final Result Performing Organization Address City/State/[facility] Co de Phone Number [facility] [address] [facility] Department [place] [address] * Differential, auto (05/02/2024 4:41 AM INCOME AUDITOR) Neutrophil abs 6.2 1.5 - 6.5 K/cumm Comment:Testing performed by : [address] [address] Imm gran abs 0.0 0.0 - 0.1 K/cumm ELVI Comment:Testing performed by : [address] [address] Lymphocyte abs 1.2 0.8 - 3.3 K/cumm [facility] Comment:Testing performed by : [address] [address] Monocyte abs 0.6 0.2 - 0.8 K/cumm [facility] Comment:Testing performed by : [address] [address] Eosinophil abs 0.1 0.0 - 0.5 K/cumm [facility] Comment:Testing performed by : [address] [address] Basophil abs 0.0 0.0 - 0.1 K/cumm [facility] Comment:Testing performed by : [address] [address] Neutrophil pct 76.6 % [facility] Comment: Interpretive Data Percent cell count reference ranges are not reported, since discordance with absolute values may lead to misinterpretation of CBC data. Current Interpretive Data was last revised on 2017. Testing performed by: [address] [address] Imm gran pct 0.4 % [facility] Comment: Interpretive Data Percent cell count reference ranges are not reported, since discordance with absolute values may lead to misinterpretation of CBC data. Current Interpretive Data was last revised on 2017. Testing performed by: [address] [address] Lymphocyte pct 14.2 % [facility] Comment: Interpretive Data Percent cell count reference ranges are not reported, since discordance with absolute values may lead to misinterpretation of CBC data. Current Interpretive Data was last revised on 2017. Testing performed by: [address] [address] Monocyte pct 7.0 % [facility] Comment: Interpretive Data Percent cell count reference ranges are not reported, since discordance with absolute values may lead to misinterpretation of CBC data. Current Interpretive Data was last revised on 2017. Testing performed by: [address] [address] Eosinophil pct 1.4 % [facility] Comment: Interpretive Data Percent cell count reference ranges are not reported, since discordance with absolute values may lead to misinterpretation of CBC data. Current Interpretive Data was last revised on 2017. Testing performed by: [address] [address] Basophil pct 0.4 % [facility] Comment: Interpretive Data Percent cell count reference ranges are not reported, since discordance with absolute values may lead to misinterpretation of CBC data. Current Interpretive Data was last revised on 2017. Testing performed by: [address] [address] Blood 05/02/2024 4:41 AM INCOME AUDITOR 05/02/2024 4:45 AM INCOME AUDITOR us Alfred Thompson DO LAB BLOOD ORDERABLES Final Result Performing Organization Address City/State/ZIP Co az Phone Number [facility] [address] [facility] Department [place] [address] * (ABNORMAL) Pro B-type natriuretic peptide (05/02/2024 4:41 AM INCOME AUDITOR) NT-proBNP 6,485(H) <=300 pg/mL Comment: Interpretive Comments: [...] Last Revised Date: 2018. Testing performed by: [address] [address] Blood 05/02/2024 4:41 AM INCOME AUDITOR 05/02/2024 4:45 AM INCOME AUDITOR us Alfred Thompson DO LAB BLOOD ORDERABLES Final Result [facility] [address] [facility] Department [place] [address] * (ABNORMAL) CBC with auto differential (05/02/2024 4:41 AM INCOME AUDITOR) WBC 8.1 3.8 - 9.9 K/cumm Comment:Testing performed by : [address] [address] Hgb 9.4(L) 13.0 - 17.5 g/dL [facility] Comment:Testing performed by : [address] [address] Hct 30.3(L) 38.9 - 50.3 % [facility] Comment:Testing performed by : [address] [address] Plt 322 150 - 400 K/cumm [facility] Comment:Testing performed by : [address] [address] MPV 9.1 9.1 - 12.3 fL [facility] Comment:Testing performed by : [address] [address] RBC 3.77(L) 4.30 - 5.80 M/cumm [facility] Comment:Testing performed by : [address] [address] MCV 80.4(L) 81.3 - 96.4 fL [facility] Comment:Testing performed by : [address] [address] MCH 24.9(L) 27.1 - 33.3 pg [facility] Comment:Testing performed by : [address] [address] MCHC 31.0(L) 32.3 - 35.7 g/dL [facility] Comment:Testing performed by : [address] [address] RDW CV 16.8(H) 11.1 - 14.9 % [facility] Comment:Testing performed by : [address] [address] RDW SD 48.6(H) 35.7 - 48.1 fL [facility] Comment:Testing performed by : [address] [address] NRBC abs 0.00 0.00 - 0.01 K/cumm [facility] Comment:Testing performed by : [address] [address] Blood 05/02/2024 4:41 AM INCOME AUDITOR 05/02/2024 4:45 AM INCOME AUDITOR Alfred Thompson DO LAB BLOOD ORDERABLES Final Result [facility] [address] [facility] Department of Laboratories [place], [place] [id number] * (ABNORMAL) Reticulocyte Count (05/02/2024 4:41 AM INCOME AUDITOR) Retics, absolute 0.126(H) 0.020 - 0.087 M/cumm Comment:Testing performed by : [address] [address] Retics 3.3(H) 0.4 - 2.9 % [facility] Comment:Testing performed by : [address] [address] Reticulocyte Hgb 20.3(L) 30.5 - 38.0 pg [facility] Comment:Testing performed by : [address] [address] Blood 05/02/2024 4:41 AM INCOME AUDITOR 05/02/2024 7:23 AM INCOME AUDITOR Amaury Lezama MD LAB BLOOD ORDERABL ES Final Result [facility] [address] [facility] Department [place] [address] * (ABNORMAL) Comprehensive metabolic panel (05/02/2024 4:41 AM INCOME AUDITOR) Sodium 134(L) 135 - 145 mmol/L Comment:Testing performed by : [address] [address] Potassium, pl 3.3 3.3 - 4.9 mmol/L [facility] Comment:Testing performed by : [address] [address] Chloride 98 97 - 110 mmol/L [facility] Comment:Testing performed by : [address] [address] CO2 23 22 - 32 mmol/L [facility] Comment:Testing performed by : [address] [address] Anion gap 13 2 - 15 mmol/L [facility] Comment:Testing performed by : [address] [address] BUN 38(H) 6 - 25 mg/dL [facility] Comment:Testing performed by : [address] [address] Creatinine 3.30(H) 0.80 - 1.30 mg/dL [facility] Comment:Testing performed by : [address] [address] Glucose 108 70 - 199 mg/dL [facility] [...] was last revised 2022. Testing performed by: [address] [address] Calcium 7.9(L) 8.5 - 10.3 mg/dL [facility] Comment:Testing performed by : [address] [address] Bilirubin, total 0.8 0.1 - 1.2 mg/dL [facility] Comment:Testing performed by : [address] [address] Protein, pl 7.1 6.5 - 8.5 g/dL [facility] Comment:Testing performed by : [address] [address] Albumin 3.2(L) 3.5 - 5.0 g/dL [facility] [place] Comment:Testing performed by : [address] [address] Alk phos 82 40 - 130 Units/L [facility] Comment:Testing performed by : [address] [address] ALT 45 7 - 55 Units/L [facility] Comment:Testing performed by : [address] [address] AST 34 10 - 50 Units/L [facility] [place] Comment:Testing performed by : [address] [address] Blood 05/02/2024 4:41 AM INCOME AUDITOR 05/02/2024 4:45 AM INCOME AUDITOR us Alfred Thompson DO LAB BLOOD ORDERABLES Final Result [facility] [address] [facility] Department of Laboratories [place], [place] [id number] * XR Chest 1 Vw Portable (05/02/2024 4:29 AM INCOME AUDITOR) Anatomical Region Laterality Modality Body, Chest N/A Computed Radiogr aphy 05/02/2024 4:32 AM INCOME AUDITOR Narrative 05/02/2024 4:36 AM INCOME AUDITOR EXAM DESCRIPTION: XR CHEST 1 VIEW REASON [...] AM T: ??05/02/2024 4:36 AM Report ID: [id number] Reading Location: ??[id number] Procedure Note Shaggy Hernandez MD - 05/02/2024 [...] Shaggy Hernandez M.D. KH: ZHANE Report ID: [id number] Reading Location: [place] [address] Alfred Thompson DO IMG XR PROCEDURES Final Res ult * OR CRITICAL CARE ILL/INJURED PATIENT INIT 30-74 MIN (05/02/2024 4:23 AM INCOME AUDITOR) Narrative Alfred Thompson, DO - 05/02/2024 4:23 AM INCOME AUDITOR Alfred Thompson, DO ? 05/02/2024 ??6:11 AM [...] * ECG 12 lead (05/02/2024 4:22 AM INCOME AUDITOR) [facility] Ventricular Rate EKG/Min 87 BPM [facility] Atrial Rate 87 BPM [facility] OR-Interval (MSEC) 180 ms [facility] QRS-Interval (MSEC) 116 ms [facility] QT-Interval (MSEC) 438 ms [facility] QTc 527 ms [facility] P [place] 23 degrees [facility] R [place] -49 degrees [facility] T [place] 70 degrees [facility] Diagnosis Normal sinus rhythm Biatrial enlargement Left axis deviation Possible Anterior infarct (cited on or before 15-JUN-2018) Prolonged QT Abnormal ECG When compared with ECG of 14-APR-2024 08:58, T wave inversion less evident in Lateral leads Confirmed by JOSE ADAMSON M.D. ([id number]) on 05/02/2024 9:50:05 PM [facility] 05/02/2024 4:22 AM INCOME AUDITOR 05/02/2024 9:50 PM INCOME AUDITOR us Alfred Thompson DO ECG ORDERABLES Final Resul t [facility] * (ABNORMAL) eGFR (04/16/2024 8:00 AM INCOME AUDITOR) eGFR 24(L) >=60 mL/min/1. 73 m2 Comment: [...] last reviewed 2021. Blood 04/16/2024 8:00 AM INCOME AUDITOR 04/16/2024 8:32 AM INCOME AUDITOR us Elias Fenton MD LAB BLOOD ORDERABLES nal Result [place] [id number] [facility] Department [place] [address] * Differential, auto (04/16/2024 8:00 AM INCOME AUDITOR) Pathologist [facility] Neutrophil abs 2.3 1.5 - 6.5 K/cumm Imm gran abs 0.0 0.0 - 0.1 K/cumm [facility] Lymphocyte abs 1.6 0.8 - 3.3 K/cumm [facility] Monocyte abs 0.5 0.2 - 0.8 K/cumm [facility] Eosinophil abs 0.2 0.0 - 0.5 K/cumm [facility] Basophil abs 0.0 0.0 - 0.1 K/cumm [facility] Neutrophil pct 49.3 % [facility] Comment: Interpretive Data Percent cell count reference ranges are not reported, since discordance with absolute values may lead to misinterpretation of CBC data. Current Interpretive Data was last revised on 2017. Imm gran pct 0.2 % [facility] Comment: Interpretive Data Percent cell count reference ranges are not reported, since discordance with absolute values may lead to misinterpretation of CBC data. Current Interpretive Data was last revised on 2017. Lymphocyte pct 33.8 % [facility] Comment: Interpretive Data Percent cell count reference ranges are not reported, since discordance with absolute values may lead to misinterpretation of CBC data. Current Interpretive Data was last revised on 2017. Monocyte pct 11.4 % [facility] Comment: Interpretive Data Percent cell count reference ranges are not reported, since discordance with absolute values may lead to misinterpretation of CBC data. Current Interpretive Data was last revised on 2017. Eosinophil pct 4.4 % [facility] Comment: Interpretive Data Percent cell count reference ranges are not reported, since discordance with absolute values may lead to misinterpretation of CBC data. Current Interpretive Data was last revised on 2017. Basophil pct 0.9 % [facility] Comment: Interpretive Data Percent cell count reference ranges are not reported, since discordance with absolute values may lead to misinterpretation of CBC data. Current Interpretive Data was last revised on 2017. Blood 04/16/2024 8:00 AM INCOME AUDITOR 04/16/2024 8:32 AM INCOME AUDITOR Elias Fenton MD LAB BLOOD ORDERABLES nal Result [place] [id number] [facility] Department [place] [address] * (ABNORMAL) CBC with auto differential (04/16/2024 8:00 AM INCOME AUDITOR) WBC 4.6 3.8 - 9.9 K/cumm Hgb 12.1(L) 13.0 - 17.5 g/dL [facility] Hct 38.6(L) 38.9 - 50.3 % [facility] Plt 283 150 - 400 K/cumm [facility] MPV 9.5 9.1 - 12.3 fL [facility] RBC 4.73 4.30 - 5.80 M/cumm [facility] MCV 81.6 81.3 - 96.4 fL [facility] MCH 25.6(L) 27.1 - 33.3 pg [facility] MCHC 31.3(L) 32.3 - 35.7 g/dL [facility] RDW CV 17.0(H) 11.1 - 14.9 % [facility] RDW SD 50.3(H) 35.7 - 48.1 fL [facility] NRBC abs 0.00 0.00 - 0.01 K/cumm [facility] Blood 04/16/2024 8:00 AM INCOME AUDITOR 04/16/2024 8:32 AM INCOME AUDITOR Elias Fenton MD LAB BLOOD ORDERABLES Ed ited Result - Final Performing Organization Address [facility] de Phone Number [address] [employer] [place] [address] * (ABNORMAL) Manual Differential (04/16/2024 8:00 AM INCOME AUDITOR) [facility] Differential Auto RBC morphology Present(A) [facility] Polychromasia 3-7/HPF(A) [facility] Poikilocytosis Slight(A) [facility] Elliptocytes 3-7/HPF(A) [facility] Target cells 3-7/HPF(A) [facility] Platelet estimate Automated Count Confirmed [facility] Blood 04/16/2024 8:00 AM INCOME AUDITOR 04/16/2024 8:32 AM INCOME AUDITOR Elias Fenton MD LAB BLOOD ORDERABLES Fi nal Result Performing Organization Address [facility] Co de Phone Number [address] [employer] [place] [address] * Magnesium (04/16/2024 8:00 AM INCOME AUDITOR) [facility] Magnesium 2.3 1.4 - 2.5 mg/dL Blood 04/16/2024 8:00 AM INCOME AUDITOR 04/16/2024 8:32 AM INCOME AUDITOR Elias Fenton MD LAB BLOOD ORDERABLES Fi nal Result Performing Organization Address [facility] Co de Phone Number [address] [employer] [place] [address] * (ABNORMAL) Hepatic function panel (04/16/2024 8:00 AM INCOME AUDITOR) [facility] Bilirubin, total 0.4 0.1 - 1.2 mg/dL Bilirubin, direct <0.2 0.1 - 0.3 mg/dL [facility] Protein, pl 7.4 6.5 - 8.5 g/dL [facility] Albumin 3.2(L) 3.5 - 5.0 g/dL [facility] Alk phos 72 40 - 130 Units/L [facility] ALT 31 7 - 55 Units/L [facility] AST 28 10 - 50 Units/L [facility] Blood 04/16/2024 8:00 AM INCOME AUDITOR 04/16/2024 8:32 AM INCOME AUDITOR us Elias Fenton MD LAB BLOOD ORDERABLES Fi nal Result [facility] [address] [facility] Department [place] [address] * Lipid panel (04/16/2024 8:00 AM INCOME AUDITOR) Cholesterol 167 30 - 199 mg/dL Comment: [...] revised on 2018. Triglycerides 87 <=149 mg/dL [facility] Comment: Interpretive Data Ages < or [...] mg/dL ??High: ?>160 mg/dL Calculated using the Mcintosh LDL-C estimating equation. This equation was implemented [...] revised on 2024. Non-HDL Cholesterol 117 mg/dL [facility] Comment: Interpretive Data Ages < or [...] last revised on 2018. Chol/HDL ratio 3 [facility] Blood 04/16/2024 8:00 AM INCOME AUDITOR 04/16/2024 8:32 AM INCOME AUDITOR Elias Fenton MD LAB BLOOD ORDERABLES Fi nal Result [facility] [address] [facility] Department of Laboratories [place], [place] [id number] * (ABNORMAL) Basic metabolic panel (04/16/2024 8:00 AM INCOME AUDITOR) Pathologist [facility] Sodium 136 135 - 145 mmol/L Potassium, pl 4.2 3.3 - 4.9 mmol/L [facility] Chloride 103 97 - 110 mmol/L [facility] CO2 23 22 - 32 mmol/L [facility] Anion gap 10 2 - 15 mmol/L [facility] BUN 30(H) 6 - 25 mg/dL [facility] Creatinine 3.26(H) 0.80 - 1.30 mg/dL [facility] Glucose 105 70 - 199 mg/dL [facility] Comment: Interpretive Data Fasting glucose >/= [...] 10.3 mg/dL [facility] Blood 04/16/2024 8:00 AM INCOME AUDITOR 04/16/2024 8:32 AM INCOME AUDITOR us Elias Fenton MD LAB BLOOD ORDERABLES Fi nal Result [facility] [address] [facility] Department [place] [address] * TRANSTHORACIC ECHO (TTE) COMPLETE W DOPPLER/CF WO CONTRAST (04/15/2024 3:37 PM INCOME AUDITOR) Anatomical Region Laterality Modality Ultrasound 04/15/2024 3:14 PM INCOME AUDITOR Narrative 04/15/2024 6:57 PM INCOME AUDITOR ? Adult Echocardiogram + ----- + :Name: SHARRON HEADLEY, IIIStudy Date: 04/15/2024 ?Status: MHB ? : : ? Patient Location: MHB 2 NE^[id number]^MHBHeight: 72 in ? : : ? Weight: [...] Date: 04/15/2024Status: MHB : : Patient Location: [address]^[id number]^MHBHeight: 72 in : : : 200 lbBP: [...] Result * (ABNORMAL) eGFR (04/15/2024 12:45 PM INCOME AUDITOR) eGFR 24(L) >=60 mL/min/1. 73 m2 Comment: [...] reviewed 2021. Blood 04/15/2024 12:4 5 PM INCOME AUDITOR 04/15/2024 1:00 PM INCOME AUDITOR Elias Fenton MD LAB BLOOD ORDERABLES Fi nal Result Performing Organization Address City/[facility] Co de Phone Number [address] [address] * Magnesium (04/15/2024 12:45 PM INCOME AUDITOR) Pathologist [facility] Magnesium 2.4 1.4 - 2.5 mg/dL Blood 04/15/2024 12:4 5 PM INCOME AUDITOR 04/15/2024 1:00 PM INCOME AUDITOR Elias Fenton MD LAB BLOOD ORDERABLES Fi nal Result Performing Organization Address [facility] de Phone Number [address] [address] * (ABNORMAL) Basic metabolic panel (04/15/2024 12:45 PM INCOME AUDITOR) Pathologist [facility] Sodium 134(L) 135 - 145 mmol/L Potassium, pl 3.9 3.3 - 4.9 mmol/L [facility] Chloride 102 97 - 110 mmol/L [facility] CO2 23 22 - 32 mmol/L [facility] Anion gap 9 2 - 15 mmol/L [facility] BUN 30(H) 6 - 25 mg/dL [facility] Creatinine 3.20(H) 0.80 - 1.30 mg/dL [facility] Glucose 114 70 - 199 mg/dL [facility] Comment: Interpretive Data Fasting glucose >/= [...] mg/dL [facility] Blood 04/15/2024 12:4 5 PM INCOME AUDITOR 04/15/2024 1:00 PM INCOME AUDITOR us Elias Fenton MD LAB BLOOD ORDERABLES Fi nal Result [facility] [address] [facility] Department [place] [address] * (ABNORMAL) eGFR (04/15/2024 2:50 AM INCOME AUDITOR) eGFR 24(L) >=60 mL/min/1. 73 m2 Comment: [...] last reviewed 2021. Blood 04/15/2024 2:50 AM INCOME AUDITOR 04/15/2024 3:31 AM INCOME AUDITOR Darryn Childress MD LAB BLOOD ORDERABLES Final Result [facility] [address] [facility] Department [place] [address] * Differential, auto (04/15/2024 2:50 AM INCOME AUDITOR) Neutrophil abs 3.7 1.5 - 6.5 K/cumm Imm gran abs 0.0 0.0 - 0.1 K/cumm [facility] Lymphocyte abs 1.3 0.8 - 3.3 K/cumm [facility] Monocyte abs 0.6 0.2 - 0.8 K/cumm [facility] Eosinophil abs 0.1 0.0 - 0.5 K/cumm [facility] Basophil abs 0.0 0.0 - 0.1 K/cumm [facility] Neutrophil pct 63.6 % [facility] Comment: Interpretive Data Percent cell count reference ranges are not reported, since discordance with absolute values may lead to misinterpretation of CBC data. Current Interpretive Data was last revised on 2017. Imm gran pct 0.3 % [facility] Comment: Interpretive Data Percent cell count reference ranges are not reported, since discordance with absolute values may lead to misinterpretation of CBC data. Current Interpretive Data was last revised on 2017. Lymphocyte pct 22.9 % [facility] Comment: Interpretive Data Percent cell count reference ranges are not reported, since discordance with absolute values may lead to misinterpretation of CBC data. Current Interpretive Data was last revised on 2017. Monocyte pct 10.4 % [facility] Comment: Interpretive Data Percent cell count reference ranges are not reported, since discordance with absolute values may lead to misinterpretation of CBC data. Current Interpretive Data was last revised on 2017. Eosinophil pct 2.1 % [facility] Comment: Interpretive Data Percent cell count reference ranges are not reported, since discordance with absolute values may lead to misinterpretation of CBC data. Current Interpretive Data was last revised on 2017. Basophil pct 0.7 % [facility] Comment: Interpretive Data Percent cell count reference ranges are not reported, since discordance with absolute values may lead to misinterpretation of CBC data. Current Interpretive Data was last revised on 2017. Blood 04/15/2024 2:50 AM INCOME AUDITOR 04/15/2024 3:31 AM INCOME AUDITOR Darryn Childress MD LAB BLOOD ORDERABLES Final Result Performing Organization Address City/[facility]/ZIP Co de Phone Number [facility] [address] [place] [address] * (ABNORMAL) CBC with auto differential (04/15/2024 2:50 AM INCOME AUDITOR) WBC 5.8 3.8 - 9.9 K/cumm Hgb 10.6(L) 13.0 - 17.5 g/dL [facility] Hct 33.2(L) 38.9 - 50.3 % [facility] Plt 251 150 - 400 K/cumm [facility] MPV 9.7 9.1 - 12.3 fL [facility] RBC 4.15(L) 4.30 - 5.80 M/cumm [facility] MCV 80.0(L) 81.3 - 96.4 fL [facility] MCH 25.5(L) 27.1 - 33.3 pg [facility] MCHC 31.9(L) 32.3 - 35.7 g/dL [facility] RDW CV 17.2(H) 11.1 - 14.9 % [facility] RDW SD 50.2(H) 35.7 - 48.1 fL [facility] NRBC abs 0.00 0.00 - 0.01 K/cumm [facility] Blood 04/15/2024 2:50 AM INCOME AUDITOR 04/15/2024 3:31 AM INCOME AUDITOR Darryn Childress MD LAB BLOOD ORDERABLES Final Result Performing Organization Address City/[facility]/ZIP Co de Phone Number [facility] [address] [place] [employer] [place] [address] * Magnesium (04/15/2024 2:50 AM INCOME AUDITOR) Pathologist [facility] Magnesium 1.8 1.4 - 2.5 mg/dL Blood 04/15/2024 2:50 AM INCOME AUDITOR 04/15/2024 3:31 AM INCOME AUDITOR us Elias Fenton MD LAB BLOOD ORDERABLES Fi nal Result [facility] [address] [facility] Department [place] [address] * (ABNORMAL) Comprehensive metabolic panel (04/15/2024 2:50 AM INCOME AUDITOR) Pathologist [facility] Sodium 132(L) 135 - 145 mmol/L Potassium, pl 3.9 3.3 - 4.9 mmol/L [facility] Chloride 102 97 - 110 mmol/L [facility] CO2 22 22 - 32 mmol/L [facility] Anion gap 8 2 - 15 mmol/L [facility] BUN 32(H) 6 - 25 mg/dL [facility] Creatinine 3.27(H) 0.80 - 1.30 mg/dL [facility] Glucose 106 70 - 199 mg/dL [facility] Comment: Interpretive Data Fasting glucose >/= [...] 2022. Calcium 7.9(L) 8.5 - 10.3 mg/dL [facility] Bilirubin, total 0.6 0.1 - 1.2 mg/dL [facility] Protein, pl 6.4(L) 6.5 - 8.5 g/dL [facility] Albumin 3.0(L) 3.5 - 5.0 g/dL [facility] Alk phos 71 40 - 130 Units/L [facility] ALT 33 7 - 55 Units/L [facility] AST 30 10 - 50 Units/L [facility] Blood 04/15/2024 2:50 AM INCOME AUDITOR 04/15/2024 3:31 AM INCOME AUDITOR Darryn Childress MD LAB BLOOD ORDERABLES Final Result Performing Organization Address [facility] de Phone Number [address] [place] [address] * POCT glucose (04/14/2024 4:29 PM INCOME AUDITOR) Pathologist [facility] Glucose, POC 118 70 - 199 mg/dL Blood 04/14/2024 4:29 PM INCOME AUDITOR 04/14/2024 4:29 PM INCOME AUDITOR Result [facility] Darryn Childress MD LAB POCT ORDERABLES - DEVICE Final Result Performing Organization Address [facility] de Phone Number [address] [employer] [place] [address] * (ABNORMAL) Troponin T high-sensitivity 6-hour (04/14/2024 3:49 PM INCOME AUDITOR) Pathologist [facility] Trop T hs 58(H) <=22 ng/L Comment: Interpretive Data For further hscTnT resources including the diagnostic algorithm and an aid in interpretation, copy and paste this link: https://nrl.testcatalog.org/show/[email or web address] Current Interpretive Data last revised 2020. Trop T hs delta 4 ng/L [facility] Trop T hs interp Insignificant [facility] Blood 04/14/2024 3:49 PM INCOME AUDITOR 04/14/2024 3:53 PM INCOME AUDITOR Simon Vera MD LAB BLOOD ORDERABLE S Final Result Performing Organization Address [facility] Co de Phone Number [address] [employer] [place] [address] * NM Pulmonary Perfusion Imaging (04/14/2024 2:28 PM INCOME AUDITOR) Anatomical Region Laterality Modality Body N/A Nuclear Medicine 04/14/2024 2:44 PM INCOME AUDITOR Narrative 04/14/2024 2:44 PM INCOME AUDITOR EXAM DESCRIPTION: ?? NM PULMONARY PERFUSION IMAGING [...] D: ??04/14/2024 2:44 PM T: Report ID: [id number] Reading Location: ??[id number] Procedure Note Jaskaran Tobin Jr., MD - [...] by Jaskaran Tobin M.D. T: Report ID: [id number] Reading Location: [id number] Simon Vera MD [facility] [place] PROCEDURES F inal Result * (ABNORMAL) Troponin T high-sensitivity 2-hour (04/14/2024 11:32 AM INCOME AUDITOR) Trop T hs 58(H) <=22 ng/L Comment: Interpretive Data For further hscTnT resources including the diagnostic algorithm and an aid in interpretation, copy and paste this link: [email or web address].[email or web address]/show/[email or web address] Current Interpretive Data last revised 2020. Trop T hs delta 4 ng/L [facility] Trop T hs interp Insignificant [facility] Blood 04/14/2024 11:3 2 AM INCOME AUDITOR 04/14/2024 11:34 AM INCOME AUDITOR us Simon Vera MD LAB BLOOD ORDERABLE S Final Result Performing Organization Address [facility] Co de Phone Number [facility] [address] [employer] [place] [address] * (ABNORMAL) Troponin T high-sensitivity series (baseline, 2hr, 4hr, 6hr) (04/14/2024 9:23 AM INCOME AUDITOR) Pathologist [facility] Trop T hs 54(H) <=22 ng/L Comment: Interpretive Data For further hscTnT resources including the diagnostic algorithm and an aid in interpretation, copy and paste this link: [email or web address] Current Interpretive Data last revised 2020. Blood 04/14/2024 9:23 AM INCOME AUDITOR 04/14/2024 9:26 AM INCOME AUDITOR us Simon Vera MD LAB BLOOD ORDERABLE S Final Result Performing Organization Address [facility] Co de Phone Number [id number] [employer] [place], [place] [id number] * (ABNORMAL) eGFR (04/14/2024 9:23 AM INCOME AUDITOR) [facility] eGFR 22(L) >=60 mL/min/1. 73 m2 [...] last reviewed 2021. Blood 04/14/2024 9:23 AM INCOME AUDITOR 04/14/2024 9:26 AM INCOME AUDITOR us Simon Vera MD LAB BLOOD ORDERABLE S Final Result [facility] [address] [facility] Department [place] [address] * Differential, auto (04/14/2024 9:23 AM INCOME AUDITOR) Pathologist [facility] Neutrophil abs 3.9 1.5 - 6.5 K/cumm Imm gran abs 0.0 0.0 - 0.1 K/cumm [facility] Lymphocyte abs 1.0 0.8 - 3.3 K/cumm [facility] Monocyte abs 0.5 0.2 - 0.8 K/cumm [facility] Eosinophil abs 0.0 0.0 - 0.5 K/cumm [facility] Basophil abs 0.0 0.0 - 0.1 K/cumm [facility] Neutrophil pct 70.9 % [facility] Comment: Interpretive Data Percent cell count reference ranges are not reported, since discordance with absolute values may lead to misinterpretation of CBC data. Current Interpretive Data was last revised on 2017. Imm gran pct 0.4 % [facility] Comment: Interpretive Data Percent cell count reference ranges are not reported, since discordance with absolute values may lead to misinterpretation of CBC data. Current Interpretive Data was last revised on 2017. Lymphocyte pct 18.4 % [facility] Comment: Interpretive Data Percent cell count reference ranges are not reported, since discordance with absolute values may lead to misinterpretation of CBC data. Current Interpretive Data was last revised on 2017. Monocyte pct 8.9 % [facility] Comment: Interpretive Data Percent cell count reference ranges are not reported, since discordance with absolute values may lead to misinterpretation of CBC data. Current Interpretive Data was last revised on 2017. Eosinophil pct 0.7 % [facility] Comment: Interpretive Data Percent cell count reference ranges are not reported, since discordance with absolute values may lead to misinterpretation of CBC data. Current Interpretive Data was last revised on 2017. Basophil pct 0.7 % [facility] Comment: Interpretive Data Percent cell count reference ranges are not reported, since discordance with absolute values may lead to misinterpretation of CBC data. Current Interpretive Data was last revised on 2017. Blood 04/14/2024 9:23 AM INCOME AUDITOR 04/14/2024 9:26 AM INCOME AUDITOR us Simon Vera MD LAB BLOOD ORDERABLE S Final Result [facility] [address] [facility] Department [place] [address] * (ABNORMAL) Pro B-type natriuretic peptide (04/14/2024 9:23 AM INCOME AUDITOR) NT-proBNP 6,724(H) <=300 pg/mL Comment: Interpretive Comments: [...] Revised Date: 2018. Blood 04/14/2024 9:23 AM INCOME AUDITOR 04/14/2024 9:26 AM INCOME AUDITOR us Simon Vera MD LAB BLOOD ORDERABLE S Final Result Performing Organization Address City/State/ZIP Co az Phone Number [facility] [address] [facility] [place] [address] * (ABNORMAL) CBC with auto differential (04/14/2024 9:23 AM INCOME AUDITOR) [facility] WBC 5.5 3.8 - 9.9 K/cumm Hgb 12.9(L) 13.0 - 17.5 g/dL [facility] Hct 41.6 38.9 - 50.3 % [facility] Plt 240 150 - 400 K/cumm [facility] MPV 9.9 9.1 - 12.3 fL [facility] RBC 5.09 4.30 - 5.80 M/cumm [facility] MCV 81.7 81.3 - 96.4 fL [facility] MCH 25.3(L) 27.1 - 33.3 pg [facility] MCHC 31.0(L) 32.3 - 35.7 g/dL [facility] RDW CV 17.4(H) 11.1 - 14.9 % [facility] RDW SD 51.0(H) 35.7 - 48.1 fL [facility] NRBC abs 0.00 0.00 - 0.01 K/cumm [facility] Blood 04/14/2024 9:23 AM INCOME AUDITOR 04/14/2024 9:26 AM INCOME AUDITOR us Simon Vera MD LAB BLOOD ORDERABLE S Final Result [facility] [place] [address] * (ABNORMAL) Comprehensive metabolic panel (04/14/2024 9:23 AM INCOME AUDITOR) [facility] Sodium 132(L) 135 - 145 mmol/L Potassium, pl 4.6 3.3 - 4.9 mmol/L [facility] Comment:Hemolyzed; Potassium value may be falsely elevated by as much as 1.0 mmol/L. Suggest redraw and reanalysis. Chloride 101 97 - 110 mmol/L [facility] CO2 17(L) 22 - 32 mmol/L [facility] Anion gap 14 2 - 15 mmol/L [facility] BUN 30(H) 6 - 25 mg/dL [facility] Creatinine 3.44(H) 0.80 - 1.30 mg/dL [facility] Glucose 111 70 - 199 mg/dL [facility] Comment: Interpretive Data Fasting glucose >/= [...] 2022. Calcium 9.0 8.5 - 10.3 mg/dL [facility] Bilirubin, total 0.9 0.1 - 1.2 mg/dL [facility] Protein, pl 7.7 6.5 - 8.5 g/dL [facility] Albumin 3.4(L) 3.5 - 5.0 g/dL [facility] Alk phos 80 40 - 130 Units/L [facility] ALT 47 7 - 55 Units/L [facility] AST 58(H) 10 - 50 Units/L [facility] Comment:Hemolyzed; result ma y be falsely elevated Blood 04/14/2024 9:23 AM INCOME AUDITOR 04/14/2024 9:26 AM INCOME AUDITOR Simon Vera MD LAB BLOOD ORDERABLE S Final Result [facility] [address] [facility] Department [place] [address] * XR Chest 1 Vw Portable (if patient condition/safety warrant portable) (04/14/2024 9:20 AM INCOME AUDITOR) Anatomical Region Laterality Modality Body, Chest N/A Computed Radiogr aphy 04/14/2024 9:23 AM INCOME AUDITOR Narrative 04/14/2024 9:25 AM INCOME AUDITOR EXAM DESCRIPTION: XR CHEST 1 VIEW REASON [...] 9:25 AM - Electronically signed by ??Toni Morgna M.D., MM D: ??04/14/2024 9:25 AM T: Report ID: [id number] Reading Location: ??[id number] Procedure Note Toni oMrgan MD - 04/14/2024 EXAM DESCRIPTION: XR CHEST [...] Toni Morgan M.D. MM T: Report ID: [id number] Reading Location: [id number] Simon Vera MD IMG XR PROCEDURES F inal Result * (ABNORMAL) Influenza A/B, RSV, and COVID-19 PCR Nasopharyngeal (04/14/2024 9:10 AM INCOME AUDITOR) Pathologist [facility] COVID-19 RNA Negative Negative Influenza A RNA Negative Negative [facility] Influenza B RNA Negative Negative [facility] RSV RNA Positive(A) Negative [facility] Comment: Interpretive data: Testing performed by [facility]. This test is performed using the [employer] Xpert Xpress CoV-2/Flu/RSV plus assay. This is a multiplex, real-time reverse transcriptase PCR assay intended for the qualitative detection of nucleic acid from SARS-CoV-2, influenza A, influenza B, and respiratory syncytial virus. This assay has been cleared by the [place] Food and Drug administration. The performance characteristics have been verified by the [facility]. ??Results must be considered in the clinical context, and a negative result does not rule out infection. Interpretive Data last revised 2023 Nasopharyngeal 04/14/2024 9: 10 AM INCOME AUDITOR 04/14/2024 9:26 AM INCOME AUDITOR Narrative [facility] - 04/14/2024 10:33 AM INCOME AUDITOR Is the Patient experiencing symptoms consistent with COVID?->Yes us Simon Vera MD LAB MICROBIOLOGY - GENERAL ORDERABLES Final Result [facility] [address] [facility] Department [place] [address] * ECG 12 lead (04/14/2024 8:58 AM INCOME AUDITOR) Pathologist [facility] Ventricular Rate EKG/Min 107 BPM [facility] Atrial Rate 107 BPM [facility] OR-Interval (MSEC) 170 ms [facility] QRS-Interval (MSEC) 102 ms [facility] QT-Interval (MSEC) 382 ms [facility] QTc 509 ms [facility] P [place] 37 degrees [facility] R [place] -73 degrees [facility] T [place] 86 degrees [facility] Diagnosis Sinus tachycardia Biatrial enlargement Left axis deviation 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 ([id number]) on 04/15/2024 3:10:50 AM [facility] 04/14/2024 8:58 AM INCOME AUDITOR 04/15/2024 3:10 AM INCOME AUDITOR us Simon Vera MD ECG ORDERABLES Fin al Result [facility] from Last 3 Months Advance Directives For more information, please contact: [phone] * Full Code (Latest Code Status on [...] 4:54 AM 11/21/2023 7:57 PM Care Teams Independent Beauty Consultant Relationship Specialty Start Date End Date Vicente Dickens MD [address] [place] [id number] PCP - General Family Practice 12/19/21 Arley Orona MD [address] [facility] [address] [address] Consulting Physician Nephrology 05/09/24
--- OUTSIDE RECORDS SUMMARY | 2024-06-29 20:56 | XMS_ITS | Clinical Summary ---
Author Organization [facility] Address [address] [place] [address] Care Team Providers Care Ob/Gyn Physician Name Role Phone Ran Arias MD Primary Care Provider [phone] Source Comments [facility],non-owned Affiliates and Associated Physician Practices is amultiple site organization consisting of ambulatory clinics and hospital sitesin [place], [place], [place] and [place]. This disclosure is being madepursuant to the Care Everywhere program and may not contain all information available regarding this patient. Last updated 18.[facility] Allergies No known active allergies Medications * [...] 8:46 AM 12/12/2020 8:46 PM Care Teams Ob/Gyn Physician Relationship Specialty Start Date End Date Ran Arias MD [address] [facility] [place] [address] PCP - General Internal Medicine 12/28/20
--- OUTSIDE RECORDS SUMMARY | 2024-06-29 20:57 | XMS_ITS | Clinical Summary ---
Author Organization [facility] Address [address] [place] [address] Care Team Providers Care Durability Technician Name Role Phone None, Provider MD Primary Care Provider Unavaila ble Allergies No known active allergies Medications No known medications Active Problems Problem Noted Date Diagnosed Date Hypertensive emergency 09/22/2023 Encounters Date Type Department Care Team Description 05/09/2024 Scan [facility] Scanned, [facility] 05/08/2024 Scan [facility] Scanned, Doc [facility] from Last 3 Months Family History Medical History Relation Comments CHF Father Hypertension Father Liver Disease Father Diabetes Mother Heart Sister Relation Status Comments Father (Age 53) Maternal Grandfather Maternal Grandmother Mother Alive Paternal Grandfather Paternal Grandmother Sister Alive Social History Tobacco Use Types Packs/Day Years Used Date Smoking Tobacco: Never Smokeless Tobacco: Never Tobacco Cessation:Counseling Given: Not Answered Alcohol Use Standard Drinks/Week Comments Yes 0 (1 standard drink = 0.6 oz pure alcohol) drinks on both days of weekend, unable to say how many [facility] Utilities Answer Date Recorded In the past 12 months has [facility] [employer], oil, or water [employer] threatened to shut off services in your home? No 09/23/2023 Humiliation, Afraid, Rape, and Kick questionnair e Answer Date Recorded Within the last year, have y ou been afraid of your partner or ex-partner? No 09/23/2023 Within the last year, have y ou been humiliated or emotionally abused in other ways by your partner or ex-partner? No Within the last year, have y ou been kicked, hit, slapped, or otherwise physically hurt by your partner or ex-partner? No 09/23/2023 Within the last year, have y ou been raped or forced to have any kind of sexual activity by your partner or ex-partner? No 09/23/2023 Overall Financial Resource Strain (CARDIA) Answe r Date Recorded How hard is it for you to pa y for the very basics like food, housing, medical care, and heating? Somewhat hard 09/23/2023 Hunger Vital Sign Answer Date Recorded Within the past 12 months, y ou worried that your food would run out before you got the money to buy more. Never true 09/23/19 24 Within the past 12 months, t he food you bought just didn't last and you didn't have money to get more. Never true 09/23/2023 PRAPARE - Transportation Answer Date Re corded In the past 12 months, has l ack of transportation kept you from medical appointments or from getting medications? No 08/26 In the past 12 months, has l ack of transportation kept you from meetings, work, or from getting things needed for daily living? No 09/23/2023 Housing Stability Vital Sign Answer Erick e Recorded In the last 12 months, was t here a time when you were not able to pay the mortgage or rent on time? No 09/23/2023 In the past 12 months, how m any times have you moved where you were living? 1 09/23/2023 At any time in the past 12 m [facility], were you homeless or living in a senior living (including now)? 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 Not on file Not on file Last Filed Vital Signs Vital Sign Reading Time Taken Comments Blood Pressure 129/97 09/24/2023 1:01 PM CDT Pulse 77 09/24/2023 1:01 PM CDT Temperature 36.4 ??C (97.5 ??F) 09/24/2023 12:00 PM C DT Respiratory Rate 19 09/24/2023 1:01 PM CDT Oxygen Saturation 100% 09/24/2023 12:00 PM CDT Inhaled Oxygen Concentration - - Weight 88.5 kg (195 lb 1.7 oz) 09/24/2023 4:00 A M CDT Height 182.9 cm (6') 09/22/2023 3:54 AM CDT Body Mass Index 26.46 09/22/2023 3:54 AM CDT Plan of Treatment Health Maintenance Due Date Last Done Comments Annual Physical 1987 Pneumococcal Vaccine: Pediat rics (0 to 5 Years) and At-Risk Patients (6 to 64 Years) (1 of 2 - PCV) 1990 Hepatitis B Vaccines (2 of 3 - 3-dose series) 04/08/2001 03/11/2001 Hepatitis C 2002 DTaP, Tdap and Td Vaccines ( 1 - Tdap) 2003 COVID-19 Vaccine ( - 2023-2 5 season) 2024 Influenza Adult (#1) 2024 PHQ-2 (Physician [place]) 05/26/2024 HPV Vaccines Aged Out No longer eligi ble based on patient's age to complete this topic Meningococcal B Vaccine Aged Out No l onger eligible based on patient's age to complete this topic Meningococcal Vaccine Aged Out No frank[place] artie eligible based on patient's age to complete this topic RSV Immunizations Under 20 Months Aged Out No longer eligible based on patient's age to complete this topic Goals Goal Patient Goal Type Associated Problems Recent Progress Patient-Stated? Author Patient will return to prior living situation and remain independent in ADLs upon discharge from hospital Lifestyle No Vanda Brown, RN Insurance MEDICAID Advance Directives * Full Code (Latest Code Status on File) Date Activated Date Inactivated Comments 09/22/2023 3:32 AM 09/24/2023 3:36 PM Care Teams Durability Technician Relationship Specialty Start Date End Date None, Provider, MD PCP - General UNKNOWN PHYSICIAN SPECIALTY 09/21/23
--- OUTSIDE RECORDS SUMMARY | 2024-06-29 20:57 | XMS_ITS | Clinical Summary ---
Author Organization [facility] [address] Address [address] [place] [address] Care Team Providers Care Lab Support Technician Name Role Phone Vicente Dickens MD Primary Care Provider [phone] Arley Orona MD Unavailable [phone] Allergies No known active allergies Medications dapagliflozin [...] He never did get appointment with the traffic counter AMANDA Mckeon referred him to Encounters Date Type Department Care Team Description 05/27/2024 TCC Subsequent Outreach [facility] [address] [place] [address] Colin Christian RN 05/26/2024 SHOP/CHAP Initial Eligibility Review [facility] [address] [place] [address] Aby Paul RN 05/22/2024 1:44 AM ADZING AND BORING MACHINE HELPER - 05/25/2024 6:33 PM ADZING AND BORING MACHINE HELPER Hospital Encounter [facility] [address] [place] [phone] New Patel MD Freilich, Michelle Amanda, MD Patel, Kieran, MD Anasarca (Primary Dx); Acute on chronic combined systolic and diastolic congestive heart failure (CMS/HCC) (HCC); Hypertensive crisis Discharge Disposition: Left Against Medical Advice 05/17/2024 TCC [facility] Out[facility] [address] [place] [phone] Colin Christian RN 05/10/2024 Telephone [facility] [address] [place] [phone] Vicente Dickens MD KAITLYN Questions 05/10/2024 Telephone [facility] Nephrology at [place] [id number] [phone] Marcus House MD 05/10/2024 TCC Subsequent [facility] [address] [place] [phone] Colin Christian RN 05/03/2024 TCC Initial Eligibility Review [facility] [address] [place] [phone] Susie Witt NP 05/02/2024 3:59 AM ADZING AND BORING MACHINE HELPER - 05/09/2024 2:34 PM ADZING AND BORING MACHINE HELPER Hospital Encounter [place] [address] [address] [place] [address] Alfred Thompson DO Volkerding, Andrea Marie, MD [...] TCC Subsequent [facility] [address] [place] [phone] Colin Christian RN 04/19/2024 TCC Subsequent Outreach [facility] [address] [place] [phone] Colin Christian RN 04/16/2024 TCC Initial Eligibility Review [facility] [address] [place] [address] Susie Witt NP 04/14/2024 9:14 AM ADZING AND BORING MACHINE HELPER - 04/16/2024 3:00 PM ADZING AND BORING MACHINE HELPER Hospital Encounter [address] [address] Simon Vera MD Ogbuagu, MD Harjit Zhou, [...] Date Comments Pre-diabetes CHF (congestive heart failure) (CMS/[facility]) ([facility]) Hypertension Kidney disease Family History Medical History [...] drink = 0.6 oz pur e alcohol) [facility] Utilities Answer Date Recorded In the past 12 months has [employer], gas, oil, or water company threatened to [...] often do you attend chur ch or yarsani services? More than 4 times per year 05/25/2024 Do you belong to any clubs o r organizations such as methodist groups, unions, fraternal or athletic groups, or [...] any time in the past 12 m [facility], were you homeless or living in a [facility]p (including now)? No 05/25/2024 Personal Safety Answer Date Recorded Have you ever been in or are you currently in a harmful physical or emotional relationship or is someone making you feel afraid or unsafe? Denies 05/21/2024 Sex and Gender Information Value Date Recorded Sex Assigned at Not on file Legal Sex Male 5:49 PM ADZING AND BORING MACHINE HELPER Gender Identity Not on file Sexual Orientation Not on file Obstetrics History Last Filed Vital Signs Vital Sign Reading Time Taken Comments Blood Pressure 179/132 05/25/2024 3:25 PM ADZING AND BORING MACHINE HELPER Pulse 71 05/25/2024 3:25 PM ADZING AND BORING MACHINE HELPER Temperature 36.6 ??C (97.8 ??F) 05/25/2024 3:25 PM CS T Respiratory Rate 20 05/25/2024 3:25 PM ADZING AND BORING MACHINE HELPER Oxygen Saturation 100% 05/25/2024 3:25 PM ADZING AND BORING MACHINE HELPER Inhaled Oxygen Concentration - - Weight 95.6 kg (210 lb 12.8 oz) 05/25/2024 4:29 AM ADZING AND BORING MACHINE HELPER Height 182.9 cm (6') 05/22/2024 5:33 AM ADZING AND BORING MACHINE HELPER Body Mass Index 28.59 05/22/2024 5:33 AM ADZING AND BORING MACHINE HELPER Plan of Treatment Health Maintenance Due Date [...] Diagnosis Comments EGFR Routine 05/24/2024 8:10 PM ADZING AND BORING MACHINE HELPER CBC WITHOUT DIFFERENTIAL Routine 05/24/2024 8:10 PM ADZING AND BORING MACHINE HELPER MAGNESIUM Routine 05/24/2024 8:10 PM ADZING AND BORING MACHINE HELPER BASIC METABOLIC PANEL Routine 05/24/2024 8:10 PM ADZING AND BORING MACHINE HELPER EGFR Routine 05/23/2024 10:53 PM ADZING AND BORING MACHINE HELPER CBC WITHOUT DIFFERENTIAL Routine 05/23/2024 10:53 PM ADZING AND BORING MACHINE HELPER MAGNESIUM Routine 05/23/2024 10:53 PM ADZING AND BORING MACHINE HELPER BASIC METABOLIC PANEL Routine 05/23/2024 10:53 PM ADZING AND BORING MACHINE HELPER EGFR Timed 05/23/2024 9:00 AM ADZING AND BORING MACHINE HELPER PROTEIN, URINE, 24 HOUR RESULT Timed 05/23/2024 9:00 AM ADZING AND BORING MACHINE HELPER VOLUME AND PERIOD, URINE, 24 HOUR Timed 05/23/2024 9:00 AM ADZING AND BORING MACHINE HELPER CREATININE CLEARANCE, URINE, 24 HOUR RESULT Timed 05/23/2024 9:00 AM ADZING AND BORING MACHINE HELPER CREATININE Timed 05/23/2024 9:00 AM ADZING AND BORING MACHINE HELPER CREATININE CLEARANCE, URINE, 24 HOUR Timed 05/23/2024 9:00 AM ADZING AND BORING MACHINE HELPER EGFR Routine 05/22/2024 8:21 PM ADZING AND BORING MACHINE HELPER FOLATE Routine 05/22/2024 8:21 PM ADZING AND BORING MACHINE HELPER VITAMIN B12 Routine 05/22/2024 8:21 PM ADZING AND BORING MACHINE HELPER FERRITIN Routine 05/22/2024 8:21 PM ADZING AND BORING MACHINE HELPER CBC WITHOUT DIFFERENTIAL Routine 05/22/2024 8:21 PM ADZING AND BORING MACHINE HELPER MAGNESIUM Routine 05/22/2024 8:21 PM ADZING AND BORING MACHINE HELPER BASIC METABOLIC PANEL Routine 05/22/2024 8:21 PM ADZING AND BORING MACHINE HELPER URINALYSIS, MICROSCOPIC ONLY Routine 05/22/2024 7:49 AM ADZING AND BORING MACHINE HELPER ALBUMIN CREATININE RATIO, URINE Routine 05/22/2024 7:49 AM ADZING AND BORING MACHINE HELPER SODIUM, URINE, RANDOM Timed 05/22/2024 7:49 AM ADZING AND BORING MACHINE HELPER URINALYSIS AND REFLEX TO MICROSCOPIC AND CULTURE Routine 05/22/2024 7:49 AM ADZING AND BORING MACHINE HELPER EGFR STAT 05/22/2024 6:14 AM ADZING AND BORING MACHINE HELPER CREATININE STAT 05/22/2024 6:14 AM ADZING AND BORING MACHINE HELPER FERRITIN STAT 05/22/2024 6:14 AM ADZING AND BORING MACHINE HELPER LIPID PANEL STAT 05/22/2024 6:14 AM ADZING AND BORING MACHINE HELPER IRON PROFILE W/ IBC STAT 05/22/2024 6 :14 AM ADZING AND BORING MACHINE HELPER RPR STAT 05/22/2024 6:14 AM ADZING AND BORING MACHINE HELPER HIV 1/2 ANTIBODY PLUS P24 ANTIGEN STAT 05/22/2024 6:14 AM ADZING AND BORING MACHINE HELPER TROPONIN I HIGH-SENSITIVITY 4-HOUR Timed 05/22/2024 2:15 AM ADZING AND BORING MACHINE HELPER NM CRITICAL CARE ILL/INJURED PATIENT INIT 30-74 MIN Routine 05/22/2024 1:57 AM ADZING AND BORING MACHINE HELPER EGFR STAT 05/21/2024 10:13 PM ADZING AND BORING MACHINE HELPER DIFFERENTIAL AUTO STAT 05/21/2024 10: 13 PM ADZING AND BORING MACHINE HELPER PRO B-TYPE NATRIURETIC PEPTIDE STAT 05/21/2024 10:13 PM ADZING AND BORING MACHINE HELPER TROPONIN I HIGH-SENSITIVITY SERIES (BASELINE, 2HR, 4HR, 6HR) STAT 05/21/2024 10:13 PM ADZING AND BORING MACHINE HELPER CBC WITH AUTO DIFFERENTIAL STAT 05/21/2024 10:13 PM ADZING AND BORING MACHINE HELPER COMPREHENSIVE METABOLIC PANEL STAT 05/21/2024 10:13 PM ADZING AND BORING MACHINE HELPER XR CHEST PA LATERAL 2 VIEWS ED 05/21/2024 8:12 PM ADZING AND BORING MACHINE HELPER ECG 12-LEAD STAT 05/21/2024 8:11 PM ADZING AND BORING MACHINE HELPER EGFR Routine 05/09/2024 5:25 AM ADZING AND BORING MACHINE HELPER DIFFERENTIAL AUTO Routine 05/09/2024 5:2 5 AM ADZING AND BORING MACHINE HELPER BASIC METABOLIC PANEL Routine 05/09/2024 5:25 AM ADZING AND BORING MACHINE HELPER CBC WITH AUTO DIFFERENTIAL Routine 05/09/2024 5:25 AM ADZING AND BORING MACHINE HELPER MAGNESIUM Routine 05/09/2024 5:25 AM ADZING AND BORING MACHINE HELPER PHOSPHORUS Routine 05/09/2024 5:25 AM ADZING AND BORING MACHINE HELPER EGFR Routine 05/08/2024 5:20 AM ADZING AND BORING MACHINE HELPER DIFFERENTIAL AUTO Routine 05/08/2024 5:2 0 AM ADZING AND BORING MACHINE HELPER BASIC METABOLIC PANEL Routine 05/08/2024 5:20 AM ADZING AND BORING MACHINE HELPER CBC WITH AUTO DIFFERENTIAL Routine 05/08/2024 5:20 AM ADZING AND BORING MACHINE HELPER MAGNESIUM Routine 05/08/2024 5:20 AM ADZING AND BORING MACHINE HELPER PHOSPHORUS Routine 05/08/2024 5:20 AM ADZING AND BORING MACHINE HELPER EGFR Routine 05/07/2024 3:12 AM ADZING AND BORING MACHINE HELPER DIFFERENTIAL AUTO Routine 05/07/2024 3:1 2 AM ADZING AND BORING MACHINE HELPER BASIC METABOLIC PANEL Routine 05/07/2024 3:12 AM ADZING AND BORING MACHINE HELPER CBC WITH AUTO DIFFERENTIAL Routine 05/07/2024 3:12 AM ADZING AND BORING MACHINE HELPER MAGNESIUM Routine 05/07/2024 3:12 AM ADZING AND BORING MACHINE HELPER PHOSPHORUS Routine 05/07/2024 3:12 AM ADZING AND BORING MACHINE HELPER EGFR Routine 05/06/2024 3:28 AM ADZING AND BORING MACHINE HELPER DIFFERENTIAL AUTO Routine 05/06/2024 3:2 8 AM ADZING AND BORING MACHINE HELPER VITAMIN D 25 HYDROXY Routine 05/06/2024 3:28 AM ADZING AND BORING MACHINE HELPER PTH Routine 05/06/2024 3:28 AM ADZING AND BORING MACHINE HELPER BASIC METABOLIC PANEL Routine 05/06/2024 3:28 AM ADZING AND BORING MACHINE HELPER CBC WITH AUTO DIFFERENTIAL Routine 05/06/2024 3:28 AM ADZING AND BORING MACHINE HELPER MAGNESIUM Routine 05/06/2024 3:28 AM ADZING AND BORING MACHINE HELPER PHOSPHORUS Routine 05/06/2024 3:28 AM ADZING AND BORING MACHINE HELPER TRANSTHORACIC ECHO (TTE) COMPLETE W DOPPLER/CF W CONTRAST Routine 05/05/2024 10:40 AM ADZING AND BORING MACHINE HELPER EGFR Routine 05/05/2024 1:45 AM ADZING AND BORING MACHINE HELPER MAGNESIUM Routine 05/05/2024 1:45 AM ADZING AND BORING MACHINE HELPER PHOSPHORUS Routine 05/05/2024 1:45 AM ADZING AND BORING MACHINE HELPER DIFFERENTIAL AUTO Routine 05/05/2024 1:4 5 AM ADZING AND BORING MACHINE HELPER BASIC METABOLIC PANEL Routine 05/05/2024 1:45 AM ADZING AND BORING MACHINE HELPER CBC WITH AUTO DIFFERENTIAL Routine 05/05/2024 1:45 AM ADZING AND BORING MACHINE HELPER VOLUME AND PERIOD, URINE, 24 HOUR Timed 05/04/2024 9:41 AM ADZING AND BORING MACHINE HELPER METANEPHRINES, URINE, 24 HOUR RESULT Timed 05/04/2024 8:45 AM ADZING AND BORING MACHINE HELPER METANEPHRINES, URINE, 24 HOUR Timed 05/04/2024 8:45 AM ADZING AND BORING MACHINE HELPER EGFR Routine 05/04/2024 3:45 AM ADZING AND BORING MACHINE HELPER BASIC METABOLIC PANEL Routine 05/04/2024 3:45 AM ADZING AND BORING MACHINE HELPER DIFFERENTIAL AUTO Routine 05/04/2024 3:4 5 AM ADZING AND BORING MACHINE HELPER CBC WITH AUTO DIFFERENTIAL Routine 05/04/2024 3:45 AM ADZING AND BORING MACHINE HELPER MAGNESIUM Routine 05/04/2024 3:45 AM ADZING AND BORING MACHINE HELPER PHOSPHORUS Routine 05/04/2024 3:45 AM ADZING AND BORING MACHINE HELPER US RENAL DOPPLER IP Routine 05/03/2024 9:40 AM ADZING AND BORING MACHINE HELPER US KIDNEY COMPLETE IP Routine 05/03/2024 7: 27 AM ADZING AND BORING MACHINE HELPER EGFR Routine 05/03/2024 5:28 AM ADZING AND BORING MACHINE HELPER DIFFERENTIAL AUTO Routine 05/03/2024 5:2 8 AM ADZING AND BORING MACHINE HELPER PHOSPHORUS Routine 05/03/2024 5:28 AM ADZING AND BORING MACHINE HELPER MAGNESIUM Routine 05/03/2024 5:28 AM ADZING AND BORING MACHINE HELPER CBC WITH AUTO DIFFERENTIAL Routine 05/03/2024 5:28 AM ADZING AND BORING MACHINE HELPER COMPREHENSIVE METABOLIC PANEL Routine 05/03/2024 5:28 AM ADZING AND BORING MACHINE HELPER PROTEIN / CREATININE RATIO, URINE, RANDOM Routine 05/02/2024 5:41 PM ADZING AND BORING MACHINE HELPER EGFR Routine 05/02/2024 4:21 PM ADZING AND BORING MACHINE HELPER ERYTHROCYTE SEDIMENTATION RATE Routine 05/02/2024 4:21 PM ADZING AND BORING MACHINE HELPER CRP (ACUTE PHASE) Routine 05/02/2024 4:2 1 PM ADZING AND BORING MACHINE HELPER D-DIMER, QUANTITATIVE Routine 05/02/2024 4:21 PM ADZING AND BORING MACHINE HELPER RENIN ACTIVITY Routine 05/02/2024 4:21 PM ADZING AND BORING MACHINE HELPER ALDOSTERONE Routine 05/02/2024 4:21 PM ADZING AND BORING MACHINE HELPER CORTISOL Timed 05/02/2024 4:21 PM ADZING AND BORING MACHINE HELPER METANEPHRINES, FRACTIONATED FREE, BLOOD Routine 05/02/2024 4:21 PM ADZING AND BORING MACHINE HELPER MAGNESIUM Routine 05/02/2024 4:21 PM ADZING AND BORING MACHINE HELPER BASIC METABOLIC PANEL Routine 05/02/2024 4:21 PM ADZING AND BORING MACHINE HELPER HIV 1/2 ANTIBODY PLUS P24 ANTIGEN Routine 05/02/2024 4:21 PM ADZING AND BORING MACHINE HELPER TROPONIN T HIGH-SENSITIVITY 6-HOUR Timed 05/02/2024 10:58 AM ADZING AND BORING MACHINE HELPER CRITICAL CARE Routine 05/02/2024 10:19 AM ADZING AND BORING MACHINE HELPER Acute on chronic congestive heart failure, unspecified heart failure type (HCC) Chronic systolic heart failure (CMS/HCC) (HCC) TROPONIN T HIGH-SENSITIVITY 4-HR Timed 05/02/2024 8:13 AM ADZING AND BORING MACHINE HELPER FOLATE Routine 05/02/2024 7:59 AM ADZING AND BORING MACHINE HELPER VITAMIN B12 Routine 05/02/2024 7:59 AM ADZING AND BORING MACHINE HELPER URINALYSIS, MICROSCOPIC ONLY Routine 05/02/2024 7:51 AM ADZING AND BORING MACHINE HELPER DRUGS OF ABUSE SCREEN, URINE WITH REFLEX CONFIRMATION Routine 05/02/2024 7:51 AM ADZING AND BORING MACHINE HELPER URINALYSIS AND REFLEX TO MICROSCOPIC AND CULTURE Routine 05/02/2024 7:51 AM ADZING AND BORING MACHINE HELPER CRP (ACUTE PHASE) Routine 05/02/2024 6:2 5 AM ADZING AND BORING MACHINE HELPER THYROID FUNCTION CASCADE Routine 05/02/2024 6:25 AM ADZING AND BORING MACHINE HELPER IRON PROFILE W/ IBC Routine 05/02/2024 6 :25 AM ADZING AND BORING MACHINE HELPER FERRITIN Routine 05/02/2024 6:25 AM ADZING AND BORING MACHINE HELPER TROPONIN T HIGH-SENSITIVITY 2-HOUR Timed 05/02/2024 6:25 AM ADZING AND BORING MACHINE HELPER RETICULOCYTES Routine 05/02/2024 4:41 AM ADZING AND BORING MACHINE HELPER EGFR STAT 05/02/2024 4:41 AM ADZING AND BORING MACHINE HELPER DIFFERENTIAL AUTO STAT 05/02/2024 4:4 1 AM ADZING AND BORING MACHINE HELPER PRO B-TYPE NATRIURETIC PEPTIDE STAT 05/02/2024 4:41 AM ADZING AND BORING MACHINE HELPER TROPONIN T HIGH-SENSITIVITY SERIES (BASELINE, 2HR, 4HR, 6HR) STAT 05/02/2024 4:41 AM ADZING AND BORING MACHINE HELPER COMPREHENSIVE METABOLIC PANEL STAT 05/02/2024 4:41 AM ADZING AND BORING MACHINE HELPER CBC WITH AUTO DIFFERENTIAL STAT 05/02/2024 4:41 AM ADZING AND BORING MACHINE HELPER XR CHEST 1 VIEW ED 05/02/2024 4:29 AM ADZING AND BORING MACHINE HELPER NM CRITICAL CARE ILL/INJURED PATIENT INIT 30-74 MIN Routine 05/02/2024 4:23 AM ADZING AND BORING MACHINE HELPER ECG 12-LEAD STAT 05/02/2024 4:22 AM ADZING AND BORING MACHINE HELPER LIPID PANEL STAT 04/16/2024 8:00 AM ADZING AND BORING MACHINE HELPER MANUAL DIFFERENTIAL STAT 04/16/2024 8 :00 AM ADZING AND BORING MACHINE HELPER EGFR STAT 04/16/2024 8:00 AM ADZING AND BORING MACHINE HELPER DIFFERENTIAL AUTO STAT 04/16/2024 8:0 0 AM ADZING AND BORING MACHINE HELPER BASIC METABOLIC PANEL STAT 04/16/2024 8:00 AM ADZING AND BORING MACHINE HELPER HEPATIC FUNCTION PANEL STAT 04/16/2024 8:00 AM ADZING AND BORING MACHINE HELPER CBC WITH AUTO DIFFERENTIAL STAT 04/16/2024 8:00 AM ADZING AND BORING MACHINE HELPER MAGNESIUM STAT 04/16/2024 8:00 AM ADZING AND BORING MACHINE HELPER TRANSTHORACIC ECHO (TTE) COMPLETE W DOPPLER/CF WO CONTRAST Routine 04/15/2024 3:37 PM ADZING AND BORING MACHINE HELPER EGFR Timed 04/15/2024 12:45 PM ADZING AND BORING MACHINE HELPER MAGNESIUM Timed 04/15/2024 12:45 PM ADZING AND BORING MACHINE HELPER BASIC METABOLIC PANEL Timed 04/15/2024 12:45 PM ADZING AND BORING MACHINE HELPER MAGNESIUM Routine 04/15/2024 2:50 AM ADZING AND BORING MACHINE HELPER EGFR Routine 04/15/2024 2:50 AM ADZING AND BORING MACHINE HELPER DIFFERENTIAL AUTO Routine 04/15/2024 2:5 0 AM ADZING AND BORING MACHINE HELPER CBC WITH AUTO DIFFERENTIAL Routine 04/15/2024 2:50 AM ADZING AND BORING MACHINE HELPER COMPREHENSIVE METABOLIC PANEL Routine 04/15/2024 2:50 AM ADZING AND BORING MACHINE HELPER POCT GLUCOSE DEVICE Routine 04/14/2024 4 :29 PM ADZING AND BORING MACHINE HELPER TROPONIN T HIGH-SENSITIVITY 6-HOUR Timed 04/14/2024 3:49 PM ADZING AND BORING MACHINE HELPER NM PULMONARY PERFUSION IMAGING ED 04/14/2024 2:28 PM ADZING AND BORING MACHINE HELPER TROPONIN T HIGH-SENSITIVITY 2-HOUR Timed 04/14/2024 11:32 AM ADZING AND BORING MACHINE HELPER EGFR STAT 04/14/2024 9:23 AM ADZING AND BORING MACHINE HELPER DIFFERENTIAL AUTO STAT 04/14/2024 9:2 3 AM ADZING AND BORING MACHINE HELPER PRO B-TYPE NATRIURETIC PEPTIDE STAT 04/14/2024 9:23 AM ADZING AND BORING MACHINE HELPER TROPONIN T HIGH-SENSITIVITY SERIES (BASELINE, 2HR, 4HR, 6HR) STAT 04/14/2024 9:23 AM ADZING AND BORING MACHINE HELPER CBC WITH AUTO DIFFERENTIAL STAT 04/14/2024 9:23 AM ADZING AND BORING MACHINE HELPER COMPREHENSIVE METABOLIC PANEL STAT 04/14/2024 9:23 AM ADZING AND BORING MACHINE HELPER XR CHEST 1 VIEW ED 04/14/2024 9:20 AM ADZING AND BORING MACHINE HELPER INFLUENZA A/B, RSV, AND COVID-19 PCR STAT 04/14/2024 9:10 AM ADZING AND BORING MACHINE HELPER ECG 12-LEAD STAT 04/14/2024 8:58 AM ADZING AND BORING MACHINE HELPER from Last 3 Months Results * (ABNORMAL) eGFR (05/24/2024 8:10 PM ADZING AND BORING MACHINE HELPER) [facility] Signature eGFR 24(L) >=60 mL/min/1. [...] last reviewed 2021. Blood 05/24/2024 8:10 PM [employer]ZING AND BORING MACHINE HELPER 05/24/2024 8:50 PM ADZING AND BORING MACHINE HELPER us Ying Reagan MD LAB BLOOD ORDERABLES Final Result [facility] Department [place] [address] * (ABNORMAL) CBC without differential (05/24/2024 8:10 PM ADZING AND BORING MACHINE HELPER) WBC 4.9 3.8 - 9.9 K/cumm Hgb 11.2(L) 13.0 - 17.5 g/dL [facility] Hct 38.1(L) 38.9 - 50.3 % [facility] Plt 351 150 - 400 K/cumm [facility] MPV 9.5 9.1 - 12.3 fL [facility] RBC 4.39 4.30 - 5.80 M/cumm [facility] MCV 86.8 81.3 - 96.4 fL [facility] MCH 25.5(L) 27.1 - 33.3 pg [facility] MCHC 29.4(L) 32.3 - 35.7 g/dL [facility] RDW CV 20.4(H) 11.1 - 14.9 % [facility] RDW SD 64.2(H) 35.7 - 48.1 fL [facility] NRBC abs 0.00 0.00 - 0.01 K/cumm [facility] Blood 05/24/2024 8:10 PM ADZING AND BORING MACHINE HELPER 05/24/2024 8:49 PM ADZING AND BORING MACHINE HELPER Ying Reagan MD LAB BLOOD ORDERABLES Final Result Performing Organization Address [facility] Co de Phone Number [facility] [place] [address] * Magnesium (05/24/2024 8:10 PM ADZING AND BORING MACHINE HELPER) Pathologist [facility] [place] Magnesium 2.2 1.4 - 2.5 mg/dL Blood 05/24/2024 8:10 PM [employer]ZING AND BORING MACHINE HELPER 05/24/2024 8:50 PM ADZING AND BORING MACHINE HELPER Ying Reagan MD LAB BLOOD ORDERABLES Final Result Performing Organization Address [facility] Phone Number [facility] [place] [address] * (ABNORMAL) Basic metabolic panel (05/24/2024 8:10 PM ADZING AND BORING MACHINE HELPER) Pathologist [facility] [place] Sodium 141 135 - 145 mmol/L Potassium, pl 3.9 3.3 - 4.9 mmol/L [facility] Chloride 103 97 - 110 mmol/L [facility] CO2 26 22 - 32 mmol/L [facility] Anion gap 12 2 - 15 mmol/L [facility] BUN 31(H) 6 - 25 mg/dL [facility] Creatinine 3.26(H) 0.80 - 1.30 mg/dL [facility] Glucose 107 70 - 199 mg/dL [facility] Comment: Interpretive Data Fasting glucose >/= [...] mg/dL [facility] Blood 05/24/2024 8:10 PM ADZING AND BORING MACHINE HELPER 05/24/2024 8:50 PM ADZING AND BORING MACHINE HELPER us Ying Reagan MD LAB BLOOD ORDERABLES Final Result [facility] Department [place] [address] * (ABNORMAL) eGFR (05/23/2024 10:53 PM ADZING AND BORING MACHINE HELPER) eGFR 24(L) >=60 mL/min/1. 73 m2 Comment: [...] reviewed 2021. Blood 05/23/2024 10:5 3 PM [employer]ZING AND BORING MACHINE HELPER 05/23/2024 11:36 PM ADZING AND BORING MACHINE HELPER us Ying Reagan MD LAB BLOOD ORDERABLES Final Result [facility] Department [place] [address] * (ABNORMAL) CBC without differential (05/23/2024 10:53 PM ADZING AND BORING MACHINE HELPER) WBC 5.1 3.8 - 9.9 K/cumm Hgb 10.8(L) 13.0 - 17.5 g/dL [facility] Hct 35.7(L) 38.9 - 50.3 % [facility] Plt 245 150 - 400 K/cumm [facility] MPV 9.8 9.1 - 12.3 fL [facility] RBC 4.16(L) 4.30 - 5.80 M/cumm [facility] MCV 85.8 81.3 - 96.4 fL [facility] MCH 26.0(L) 27.1 - 33.3 pg [facility] MCHC 30.3(L) 32.3 - 35.7 g/dL [facility] RDW CV 21.1(H) 11.1 - 14.9 % [facility] RDW SD 65.1(H) 35.7 - 48.1 fL [facility] NRBC abs 0.00 0.00 - 0.01 K/cumm [facility] Blood 05/23/2024 10:5 3 PM [employer]ING AND BORING MACHINE HELPER 05/23/2024 11:25 PM ADZING AND BORING MACHINE HELPER us Ying Reagan MD LAB BLOOD ORDERABLES Final Result [facility] [place] [address] * Magnesium (05/23/2024 10:53 PM ADZING AND BORING MACHINE HELPER) Magnesium 1.9 1.4 - 2.5 mg/dL Blood 05/23/2024 10:5 3 PM [employer]ING AND BORING MACHINE HELPER 05/23/2024 11:25 PM AD[employer] HELPER Ying Reagan MD LAB BLOOD ORDERABLES Final Result [facility] [place] [address] * (ABNORMAL) Basic metabolic panel (05/23/2024 10:53 PM [employer] MACHINE HELPER) [facility] Sodium 139 135 - 145 mmol/L Potassium, pl 4.1 3.3 - 4.9 mmol/L [facility] Chloride 104 97 - 110 mmol/L [facility] CO2 22 22 - 32 mmol/L [facility] Anion gap 13 2 - 15 mmol/L [facility] BUN 34(H) 6 - 25 mg/dL [facility] Creatinine 3.17(H) 0.80 - 1.30 mg/dL [facility] Glucose 83 70 - 199 mg/dL [facility] Comment: Interpretive Data Fasting glucose >/= [...] 2022. Calcium 8.2(L) 8.5 - 10.3 mg/dL [facility] Blood 05/23/2024 10:5 3 PM [employer] 05/23/2024 11:25 PM [employer] us Ying Reagan MD LAB BLOOD ORDERABLES Final Result Performing Organization Address City/[facility]/ZIP Co de Phone Number [facility] [place] [address] * (ABNORMAL) Protein, urine, 24 hour (05/23/2024 9:00 AM [employer] HEL[employer]) Protein, 24 hr, ur 2,694(H) 0 - 150 mg/24H Urine/Blood 05/23/2024 9:00 AM [employer] HELPER 05/23/2024 3:26 PM [employer] us Momo Catherine MD LAB URINE ORDERABLES Final Resul t [facility] [place] [address] * (ABNORMAL) eGFR (05/23/2024 9:00 AM [employer] HELPER) eGFR 23(L) >=60 mL/min/1. 73 m2 Comment: [...] last reviewed 2021. Urine/Blood 05/23/2024 9:00 AM [employer] HELPER 05/23/2024 3:26 PM [employer] HELPER us Momo Catherine MD LAB BLOOD ORDERABLES Final Resul t Performing Organization Address [facility] Co de Phone Number [facility] [place] [address] * Volume and period, urine, 24 hour (05/23/2024 9:00 AM [employer] MACHINE HELPER) Volume, ur 5,600 mL Period, Urine Collection 1,440 min [facility] Urine/Blood 05/23/2024 9:00 AM [employer] HELPER 05/23/2024 3:26 PM [employer] HELPER us Ying Reagan MD LAB URINE ORDERABLES Final Result Performing Organization Address [facility] [facility] de Phone Number [facility] [place] [address] * (ABNORMAL) Creatinine clearance, urine, 24 hour (05/23/2024 9:00 AM [employer]ING AND BORING MACHINE HELPER) Creatinine Clearance 40(L) 60 - 130 mL/min Creatinine, 24 hr, ur 1.9 0.8 - 2.2 g/24H [facility] Urine/Blood 05/23/2024 9:00 AM [employer]ING AND BORING MACHINE HELPER 05/23/2024 3:26 PM ADZING AND BORING MACHINE HELPER us Ying Reagan MD LAB URINE ORDERABLES Final Result Performing Organization Address [facility] [place] [address] * (ABNORMAL) Creatinine (05/23/2024 9:00 AM [employer]ZING AND BORING MACHINE HELPER) Creatinine 3.31(H) 0.80 - 1.30 mg/dL Urine/Blood 05/23/2024 9:00 AM [employer]ZING AND BORING MACHINE HELPER 05/23/2024 3:26 PM ADZING AND BORING MACHINE HELPER us Momo Catherine MD LAB BLOOD ORDERABLES Final Resul t Performing Organization Address City/[facility] Co de Phone Number [facility] [place] [address] * (ABNORMAL) eGFR (05/22/2024 8:21 PM ADZING AND BORING MACHINE HELPER) eGFR 22(L) >=60 mL/min/1. 73 m2 Comment: [...] last reviewed 2021. Blood 05/22/2024 8:21 PM ADZING AND BORING MACHINE HELPER 05/22/2024 9:02 PM ADZING AND BORING MACHINE HELPER us Ying Reagan MD LAB BLOOD ORDERABLES Final Result Performing Organization Address City/[facility] Co de Phone Number [facility] [place] [address] * (ABNORMAL) CBC without differential (05/22/2024 8:21 PM ADZING AND BORING MACHINE HELPER) Pathologist [facility] [place] WBC 5.7 3.8 - 9.9 K/cumm Hgb 10.0(L) 13.0 - 17.5 g/dL [facility] Hct 33.0(L) 38.9 - 50.3 % [facility] Plt 342 150 - 400 K/cumm [facility] MPV 10.1 9.1 - 12.3 fL [facility] RBC 3.90(L) 4.30 - 5.80 M/cumm [facility] MCV 84.6 81.3 - 96.4 fL [facility] MCH 25.6(L) 27.1 - 33.3 pg [facility] MCHC 30.3(L) 32.3 - 35.7 g/dL [facility] RDW CV 20.9(H) 11.1 - 14.9 % [facility] RDW SD 62.9(H) 35.7 - 48.1 fL [facility] NRBC abs 0.00 0.00 - 0.01 K/cumm [facility] Blood 05/22/2024 8:21 PM ADZING AND BORING MACHINE HELPER 05/22/2024 9:06 PM ADZING AND BORING MACHINE HELPER us Ying Reagan MD LAB BLOOD ORDERABLES Final Result Performing Organization Address City/[facility] Co de Phone Number [facility] [place] [address] * Magnesium (05/22/2024 8:21 PM ADZING AND BORING MACHINE HELPER) [facility] Magnesium 1.9 1.4 - 2.5 mg/dL Blood 05/22/2024 8:21 PM ADZING AND BORING MACHINE HELPER 05/22/2024 9:02 PM ADZING AND BORING MACHINE HELPER Ying Reagan MD LAB BLOOD ORDERABLES Final Result [facility] [place] [address] * Folate (05/22/2024 8:21 PM ADZING AND BORING MACHINE HELPER) [facility] Folic acid 11.2 >=5.0 ng/mL Blood 05/22/2024 8:21 PM ADZING AND BORING MACHINE HELPER 05/22/2024 9:02 PM ADZING AND BORING MACHINE HELPER Ying Reagan MD LAB BLOOD ORDERABLES Final Result [facility] [place] [address] * Ferritin (05/22/2024 8:21 PM ADZING AND BORING MACHINE HELPER) [facility] Ferritin 228 30 - 400 ng/mL Blood 05/22/2024 8:21 PM ADZING AND BORING MACHINE HELPER 05/22/2024 9:02 PM ADZING AND BORING MACHINE HELPER Ying Reagan MD LAB BLOOD ORDERABLES Final Result Performing Organization Address City/[facility]/ZIP Co de Phone Number [facility] [place] [address] * Vitamin B12 (05/22/2024 8:21 PM ADZING AND BORING MACHINE HELPER) [facility] Vitamin B12 467 230 - 1,250 pg/mL Blood 05/22/2024 8:21 PM ADZING AND BORING MACHINE HELPER 05/22/2024 9:02 PM ADZING AND BORING MACHINE HELPER Result [facility] Ying Reagan MD LAB BLOOD ORDERABLES Final Result Performing Organization Address City/[facility] [place] [address] * (ABNORMAL) Basic metabolic panel (05/22/2024 8:21 PM ADZING AND BORING MACHINE HELPER) [facility] Sodium 141 135 - 145 mmol/L Potassium, pl 4.0 3.3 - 4.9 mmol/L [facility] Chloride 104 97 - 110 mmol/L [facility] CO2 26 22 - 32 mmol/L [facility] Anion gap 11 2 - 15 mmol/L [facility] BUN 36(H) 6 - 25 mg/dL [facility] Creatinine 3.45(H) 0.80 - 1.30 mg/dL [facility] Glucose 105 70 - 199 mg/dL [facility] Comment: Interpretive Data Fasting glucose >/= [...] 2022. Calcium 8.4(L) 8.5 - 10.3 mg/dL [facility] Blood 05/22/2024 8:21 PM ADZING AND BORING MACHINE HELPER 05/22/2024 9:02 PM ADZING AND BORING MACHINE HELPER us Ying Reagan MD LAB BLOOD ORDERABLES Final Result [facility] [place] [address] * (ABNORMAL) Urinalysis reflex to microscopic and culture Urine (05/22/2024 7:49 AM ADZING AND BORING MACHINE HELPER) Color, ur Straw Yellow Clarity, ur Clear Clear [facility] Specific gravity, ur 1.006 1.003 - 1.030 [facility] pH, urine 6.5 [facility] Comment: Interpretive Data ? Urine pH is affected by diet, medications, systemic acid-base disturbances, and renal tubular function. ??pH may affect urinary stone formation. ??For example, urine pH below 6.0 may help reduce the tendency for calcium phosphate stones and pH greater than 6.0 may reduce the tendency for uric acid stone formation. Source: [facility] [employer] Current Interpretive Data was last revised on 2017 Protein, ur ql 1+(A) Negative [facility] Glucose, ur ql Negative Negative [facility] Ketones, ur Negative Negative [facility] Bilirubin, ur Negative Negative [facility] Blood, ur Negative Negative [facility] Urobilinogen, ur <2.0 <2.0 mg/dL [facility] Nitrite, ur Negative Negative [facility] Leukocyte esterase, ur Negative Negative [facility] UA reflex comment Reflex to microscopic UA will be performed. [facility] Urine 05/22/2024 7:49 AM ADZING AND BORING MACHINE HELPER 05/22/2024 8:58 AM ADZING AND BORING MACHINE HELPER us Ying Reagan MD LAB MICROBIOLOGY - G ENERAL ORDERABLES Final Result Performing Organization Address [facility] Co de Phone Number [facility] Department [place] [address] * (ABNORMAL) Albumin Creatinine Ratio, Urine (05/22/2024 7:49 AM ADZING AND BORING MACHINE HELPER) Albumin Ur 192.0 mg/L Comment: Interpretive Data No reference range established. Current interpretive data was last revised 2018. Creatinine Ur 21.5 mg/dL [facility] Comment: Interpretive Data No reference range established. Current interpretive data was last revised 2018. Albumin Creatinine Ratio, Ur 893(H) 1 - 29 mg/g [facility] Urine 05/22/2024 7:49 AM ADZING AND BORING MACHINE HELPER 05/22/2024 9:00 AM ADZING AND BORING MACHINE HELPER us Ying Reagan MD LAB URINE ORDERABLES Final Result Performing Organization Address City/[facility]/ZIP Co de Phone Number [facility] Department [place] [address] * Sodium, urine, random (05/22/2024 7:49 AM ADZING AND BORING MACHINE HELPER) Sodium, ur 115 mmol/L Comment: Interpretive Data No reference range established. Current interpretive data was last revised 2018. Urine 05/22/2024 7:49 AM ADZING AND BORING MACHINE HELPER 05/22/2024 8:58 AM ADZING AND BORING MACHINE HELPER Ying Reagan MD LAB URINE ORDERABLES Final Result Performing Organization Address [facility] Co de Phone Number [facility] Department [place] [address] * Urinalysis, microscopic only (05/22/2024 7:49 AM ADZING AND BORING MACHINE HELPER) WBC, ur 0-5 0 - 5 /HPF RBC, ur 0-2 0 - 2 /HPF [facility] Culture Reflex Comment Reflex conditions for urine culture (WBC >10) not met. [facility] Urine 05/22/2024 7:49 AM ADZING AND BORING MACHINE HELPER 05/22/2024 8:58 AM ADZING AND BORING MACHINE HELPER Ying Reagan MD LAB URINE ORDERABLES Final Result Performing Organization Address [facility] de Phone Number [facility] Department [place] [address] * (ABNORMAL) eGFR (05/22/2024 6:14 AM ADZING AND BORING MACHINE HELPER) eGFR 23(L) >=60 mL/min/1. 73 m2 Comment: [...] last reviewed 2021. Blood 05/22/2024 6:14 AM ADZING AND BORING MACHINE HELPER 05/22/2024 7:55 AM ADZING AND BORING MACHINE HELPER us Ying Reagan MD LAB BLOOD ORDERABLES Final Result Performing Organization Address City/[facility]/ZIP Co de Phone Number [facility] Department [place] [address] * (ABNORMAL) Iron profile w/ IBC (05/22/2024 6:14 AM ADZING AND BORING MACHINE HELPER) Pathologist [facility] [place] Iron 38(L) 50 - 150 mcg/dL TIBC 169(L) 250 - 400 mcg/dL [facility] Transferrin saturation 22 20 - 50 % [facility] Blood 05/22/2024 6:14 AM ADZING AND BORING MACHINE HELPER 05/22/2024 6:45 AM ADZING AND BORING MACHINE HELPER us Sincere Isidro MD LAB BLOOD ORDERABLES Final Result Performing Organization Address City/[facility]/ZIP Co de Phone Number [facility] [place] [address] * HIV 1/2 Antibody plus p24 Antigen Blood (05/22/2024 6:14 AM ADZING AND BORING MACHINE HELPER) Pathologist [facility] [place] HIV 1/2 ab + p24 ag Nonreactive Nonreactive Comment:Nonreactive for HIV- 1 antigen and HIV-1/HIV-2 antibodies. No laboratory evidence of HIV infection. If acute HIV infection is suspected, consider testing for HIV-1 RNA. Current interpretive data was last revised on 22. Blood 05/22/2024 6:14 AM ADZING AND BORING MACHINE HELPER 05/22/2024 6:44 AM ADZING AND BORING MACHINE HELPER Sincere Isidro MD LAB MICROBIOLOGY - GENERAL ORDERABLES Final Result Performing Organization Address City/[facility] Co de Phone Number [facility] [place] [address] * RPR Blood (05/22/2024 6:14 AM ADZING AND BORING MACHINE HELPER) RPR Nonreactive Nonreactive Blood 05/22/2024 6:14 AM ADZING AND BORING MACHINE HELPER 05/22/2024 6:44 AM ADZING AND BORING MACHINE HELPER us Sincere Isidro MD LAB MICROBIOLOGY - GENERAL ORDERABLES Final Result Performing Organization Address [facility] [place] [address] * Ferritin (05/22/2024 6:14 AM ADZING AND BORING MACHINE HELPER) Ferritin 239 30 - 400 ng/mL Blood 05/22/2024 6:14 AM ADZING AND BORING MACHINE HELPER 05/22/2024 6:45 AM ADZING AND BORING MACHINE HELPER us Ying Reagan MD LAB BLOOD ORDERABLES Final Result Performing Organization Address [facility] Co de Phone Number [facility] [place] [address] * (ABNORMAL) Creatinine (05/22/2024 6:14 AM ADZING AND BORING MACHINE HELPER) Creatinine 3.31(H) 0.80 - 1.30 mg/dL Blood 05/22/2024 6:14 AM ADZING AND BORING MACHINE HELPER 05/22/2024 7:55 AM ADZING AND BORING MACHINE HELPER us Ying Reagan MD LAB BLOOD ORDERABLES Final Result Performing Organization Address [facility] Co de Phone Number [facility] [place] [address] * Lipid panel (05/22/2024 6:14 AM ADZING AND BORING MACHINE HELPER) [facility] Cholesterol 122 30 - 199 mg/dL Comment: [...] 2018. LDL, calculated 57 <=129 mg/dL [facility] Comment: Interpretive Data Ages < or [...] last revised on 2018. Chol/HDL ratio 2 [facility] Blood 05/22/2024 6:14 AM ADZING AND BORING MACHINE HELPER 05/22/2024 6:45 AM ADZING AND BORING MACHINE HELPER us Sincere Isidro MD LAB BLOOD ORDERABLES Final Result Performing Organization Address [facility] de Phone Number [facility] [place] [address] * Troponin I high-sensitivity 4-hour (05/22/2024 2:15 AM ADZING AND BORING MACHINE HELPER) Trop I hs 33 <=35 ng/L Comment: Interpretive Data For further hscTnI resources including the diagnostic algorithm and an aid in interpretation, copy and paste this link: https://bjhlab.testcatalog.org/show/hsTrop-1 Current Interpretive Data last revised 2019. Trop I hs delta -7 ng/L [facility] Trop I hs interp Equivocal [facility] Blood 05/22/2024 2:15 AM ADZING AND BORING MACHINE HELPER 05/22/2024 2:30 AM ADZING AND BORING MACHINE HELPER us Edward Rueda MD LAB BLOOD ORDERABLES Abigail l Result Performing Organization Address [facility] Co de Phone Number [facility] [place] [address] * NM CRITICAL CARE ILL/INJURED PATIENT INIT 30-74 MIN (05/22/2024 1:57 AM ADZING AND BORING MACHINE HELPER) Narrative eNw Patel MD - 05/22/2024 1:57 AM ADZING AND BORING MACHINE HELPER New Patel MD ? 05/22/2024 ??2:04 AM [...] (baseline, 2hr, 4hr, 6hr) (05/21/2024 10:13 PM ADZING AND BORING MACHINE HELPER) Trop I hs 40(H) <=35 ng/L Comment: Interpretive Data For further hscTnI resources including the diagnostic algorithm and an aid in interpretation, copy and paste this link: https://bjhlab.testcatalog.org/show/hsTrop-1 Current Interpretive Data last revised 2019. Blood 05/21/2024 10:1 3 PM ADZING AND BORING MACHINE HELPER 05/21/2024 11:09 PM ADZING AND BORING MACHINE HELPER New Patel MD LAB BLOOD ORDERABLES Abigail l Result [facility] [place] [address] * (ABNORMAL) eGFR (05/21/2024 10:13 PM ADZING AND BORING MACHINE HELPER) [facility] eGFR 23(L) >=60 mL/min/1. 73 m2 Comment: [...] reviewed 2021. Blood 05/21/2024 10:1 3 PM ADZING AND BORING MACHINE HELPER 05/21/2024 11:09 PM ADZING AND BORING MACHINE HELPER us New Patel MD LAB BLOOD ORDERABLES Abigail estella Result [facility] [place] [address] * Differential, auto (05/21/2024 10:13 PM ADZING AND BORING MACHINE HELPER) [facility] Neutrophil abs 4.3 1.5 - 6.5 K/cumm Imm gran abs 0.0 0.0 - 0.1 K/cumm [facility] Lymphocyte abs 1.0 0.8 - 3.3 K/cumm [facility] Monocyte abs 0.3 0.2 - 0.8 K/cumm [facility] Eosinophil abs 0.1 0.0 - 0.5 K/cumm [facility] Basophil abs 0.0 0.0 - 0.1 K/cumm [facility] Neutrophil pct 74.8 % [facility] Comment: Interpretive Data Percent cell count reference ranges are not reported, since discordance with absolute values may lead to misinterpretation of CBC data. Current Interpretive Data was last revised on 2017. Imm gran pct 0.5 % [facility] Comment: Interpretive Data Percent cell count reference ranges are not reported, since discordance with absolute values may lead to misinterpretation of CBC data. Current Interpretive Data was last revised on 2017. Lymphocyte pct 17.9 % [facility] Comment: Interpretive Data Percent cell count reference ranges are not reported, since discordance with absolute values may lead to misinterpretation of CBC data. Current Interpretive Data was last revised on 2017. Monocyte pct 4.9 % [facility] Comment: Interpretive Data Percent cell count reference ranges are not reported, since discordance with absolute values may lead to misinterpretation of CBC data. Current Interpretive Data was last revised on 2017. Eosinophil pct 1.6 % [facility] Comment: Interpretive Data Percent cell count reference ranges are not reported, since discordance with absolute values may lead to misinterpretation of CBC data. Current Interpretive Data was last revised on 2017. Basophil pct 0.3 % [facility] Comment: Interpretive Data Percent cell count reference ranges are not reported, since discordance with absolute values may lead to misinterpretation of CBC data. Current Interpretive Data was last revised on 2017. Blood 05/21/2024 10:1 3 PM ADZING AND BORING MACHINE HELPER 05/21/2024 11:09 PM ADZING AND BORING MACHINE HELPER us New Patel MD LAB BLOOD ORDERABLES Abigail soria Result [facility] [place] [address] * (ABNORMAL) Pro B-type natriuretic peptide (05/21/2024 10:13 PM ADZING AND BORING MACHINE HELPER) NT-proBNP 9,079(H) <=300 pg/mL Comment: Interpretive Comments: [...] Date: 2018. Blood 05/21/2024 10:1 3 PM ADZING AND BORING MACHINE HELPER 05/21/2024 11:09 PM ADZING AND BORING MACHINE HELPER New Patel MD LAB BLOOD ORDERABLES Abigail l Result Performing Organization Address [facility]/ZIP Co de Phone Number [facility] [place] [address] * (ABNORMAL) CBC with auto differential (05/21/2024 10:13 PM ADZING AND BORING MACHINE HELPER) [facility] WBC 5.7 3.8 - 9.9 K/cumm Hgb 10.4(L) 13.0 - 17.5 g/dL [facility] Hct 34.5(L) 38.9 - 50.3 % [facility] Plt 326 150 - 400 K/cumm [facility] MPV 9.8 9.1 - 12.3 fL [facility] RBC 4.01(L) 4.30 - 5.80 M/cumm [facility] MCV 86.0 81.3 - 96.4 fL [facility] MCH 25.9(L) 27.1 - 33.3 pg [facility] MCHC 30.1(L) 32.3 - 35.7 g/dL [facility] RDW CV 20.7(H) 11.1 - 14.9 % [facility] RDW SD 64.3(H) 35.7 - 48.1 fL [facility] NRBC abs 0.00 0.00 - 0.01 K/cumm [facility] Blood 05/21/2024 10:1 3 PM [employer]ING AND BORING MACHINE HELPER 05/21/2024 11:09 PM ADZING AND BORING MACHINE HELPER New Patel MD LAB BLOOD ORDERABLES Abigail l Result Performing Organization Address [facility]/ZIP Co de Phone Number [facility] [place] [address] * (ABNORMAL) Comprehensive metabolic panel (05/21/2024 10:13 PM ADZING AND BORING MACHINE HELPER) Sodium 142 135 - 145 mmol/L Potassium, pl 3.8 3.3 - 4.9 mmol/L [facility] Chloride 105 97 - 110 mmol/L [facility] CO2 26 22 - 32 mmol/L [facility] Anion gap 11 2 - 15 mmol/L [facility] BUN 34(H) 6 - 25 mg/dL [facility] Creatinine 3.34(H) 0.80 - 1.30 mg/dL [facility] Glucose 135 70 - 199 mg/dL [facility] Comment: Interpretive Data Fasting glucose >/= [...] 2022. Calcium 9.1 8.5 - 10.3 mg/dL [facility] Bilirubin, total 0.5 0.1 - 1.2 mg/dL [facility] Protein, pl 7.7 6.5 - 8.5 g/dL [facility] Albumin 3.5 3.5 - 5.0 g/dL [facility] Alk phos 128 40 - 130 Units/L [facility] ALT 50 7 - 55 Units/L [facility] AST 32 10 - 50 Units/L [facility] Blood 05/21/2024 10:1 3 PM [employer]ING AND BORING MACHINE HELPER 05/21/2024 11:09 PM ADZING AND BORING MACHINE HELPER us New Patel MD LAB BLOOD ORDERABLES Abigail soria Result [facility] [place] [address] * XR Chest PA Lateral 2 Views (05/21/2024 8:12 PM [employer]ZING AND BORING MACHINE HELPER) Anatomical Region Laterality Modality Body, Chest N/A Computed Radiogr aphy 05/21/2024 8:43 PM [employer]ZING AND BORING MACHINE HELPER Impressions 05/21/2024 8:46 PM [employer]ZING AND BORING MACHINE HELPER Comparison 05/02/2024 No focal consolidation or definite [...] Elias Sousa M.D. Narrative 05/21/2024 8:46 PM [employer]ZING AND BORING MACHINE HELPER EXAMINATION: 2 view chest radiograph Procedure Note [...] esult * ECG 12-LEAD (05/21/2024 8:11 PM ADZING AND BORING MACHINE HELPER) Narrative [facility] - 05/21/2024 8:11 PM [employer]ZING AND BORING MACHINE HELPER Florentino Macias MD ? 05/21/2024 ??8:12 PM ECG 12 lead Date/Time: 05/21/2024 8:11 PM Performed by: Florentino Macias MD Authorized by: Edward uReda MD ?? Rate: ??ECG rate: ??86 ??ECG [...] [facility] * (ABNORMAL) eGFR (05/09/2024 5:25 AM [employer]ZING AND BORING MACHINE HELPER) eGFR 22(L) >=60 mL/min/1. 73 m2 Comment: [...] was last reviewed 2021. Testing performed by: [address] [address] Blood 05/09/2024 5:25 AM [employer]ZING AND BORING MACHINE HELPER 05/09/2024 5:59 AM [employer]ZING AND BORING MACHINE HELPER Edward Sauer MD LAB BLOOD ORDERABLES Final R esult [facility] [address] [facility] Department [place] [address] * Differential, auto (05/09/2024 5:25 AM ADZING AND BORING MACHINE HELPER) Neutrophil abs 4.8 1.5 - 6.5 K/cumm Comment:Testing performed by : [address] [address] Imm gran abs 0.0 0.0 - 0.1 K/cumm [facility] Comment:Testing performed by : [address] [address] Lymphocyte abs 1.1 0.8 - 3.3 K/cumm [facility] Comment:Testing performed by : [address] [address] Monocyte abs 0.8 0.2 - 0.8 K/cumm [facility] Comment:Testing performed by : [address] [address] Eosinophil abs 0.1 0.0 - 0.5 K/cumm [facility] Comment:Testing performed by : [address] [address] Basophil abs 0.0 0.0 - 0.1 K/cumm [facility] Comment:Testing performed by : [address] [address] Neutrophil pct 70.6 % [facility] Comment: Interpretive Data Percent cell count reference ranges are not reported, since discordance with absolute values may lead to misinterpretation of CBC data. Current Interpretive Data was last revised on 2017. Testing performed by: [address] [address] Imm gran pct 0.4 % [facility] Comment: Interpretive Data Percent cell count reference ranges are not reported, since discordance with absolute values may lead to misinterpretation of CBC data. Current Interpretive Data was last revised on 2017. Testing performed by: [address] [address] Lymphocyte pct 15.5 % [facility] Comment: Interpretive Data Percent cell count reference ranges are not reported, since discordance with absolute values may lead to misinterpretation of CBC data. Current Interpretive Data was last revised on 2017. Testing performed by: [address] [address] Monocyte pct 11.1 % [facility] Comment: Interpretive Data Percent cell count reference ranges are not reported, since discordance with absolute values may lead to misinterpretation of CBC data. Current Interpretive Data was last revised on 2017. Testing performed by: [address] [address] Eosinophil pct 2.1 % [facility] Comment: Interpretive Data Percent cell count reference ranges are not reported, since discordance with absolute values may lead to misinterpretation of CBC data. Current Interpretive Data was last revised on 2017. Testing performed by: [address] [address] Basophil pct 0.3 % [facility] Comment: Interpretive Data Percent cell count reference ranges are not reported, since discordance with absolute values may lead to misinterpretation of CBC data. Current Interpretive Data was last revised on 2017. Testing performed by: [address] [address] Blood 05/09/2024 5:25 AM [employer]ING AND BORING MACHINE HELPER 05/09/2024 5:59 AM [employer]ZING AND BORING MACHINE HELPER Amaury Lezama MD LAB BLOOD ORDERABL ES Final Result [facility] [address] [facility] Department [place] [address] * (ABNORMAL) CBC with auto differential (05/09/2024 5:25 AM [employer]ZING AND BORING MACHINE HELPER) WBC 6.8 3.8 - 9.9 K/cumm Comment:Testing performed by : [address] [address] Hgb 9.5(L) 13.0 - 17.5 g/dL [facility] Comment:Testing performed by : [address] [address] Hct 31.1(L) 38.9 - 50.3 % [facility] Comment:Testing performed by : [address] [address] Plt 284 150 - 400 K/cumm [facility] Comment:Testing performed by : [address] [address] MPV 9.5 9.1 - 12.3 fL [facility] Comment:Testing performed by : [address] [address] RBC 3.76(L) 4.30 - 5.80 M/cumm ELVI SNIDER Comment:Testing performed by : [address] [address] MCV 82.7 81.3 - 96.4 fL ELVI SNIDER Comment:Testing performed by : [address] [address] MCH 25.3(L) 27.1 - 33.3 pg ELVI SNIDER Comment:Testing performed by : [address] [address] MCHC 30.5(L) 32.3 - 35.7 g/dL ELVI SNIDER Comment:Testing performed by : [facility], [address] [place] [address]., [address] RDW CV 18.7(H) 11.1 - 14.9 % ELVI SNIDER Comment:Testing performed by : [address] [address] RDW SD 55.7(H) 35.7 - 48.1 fL ELVI SNIDER Comment:Testing performed by : [address] [address] NRBC abs 0.00 0.00 - 0.01 K/cumm ELVI Comment:Testing performed by : [address] [address] Blood 05/09/2024 5:25 AM [employer]ING MACHINE HELPER 05/09/2024 5:59 AM [employer] AND BORING MACHINE HELPER Amaury Lezama MD LAB BLOOD ORDERABL ES Final Result Performing Organization Address City/[facility] Co de Phone Number [address] [employer] [place] [address] * (ABNORMAL) Phosphorus (05/09/2024 5:25 AM [employer]ING AND BORING MACHINE HELPER) Phosphorus, pl 4.7(H) 2.3 - 4.5 mg/dL Comment:Testing performed by : [address] [address] Blood 05/09/2024 5:25 AM [employer]ING AND BORING MACHINE HELPER 05/09/2024 5:59 AM [employer]ZING AND BORING MACHINE HELPER Amaury Lezama MD LAB BLOOD ORDERABL ES Final Result Performing Organization Address City/[facility] Co de Phone Number [address] [place] [address] * Magnesium (05/09/2024 5:25 AM [employer]ZING AND BORING MACHINE HELPER) Magnesium 2.1 1.4 - 2.5 mg/dL Comment:Testing performed by : [address] [address] Blood 05/09/2024 5:25 AM [employer]ING AND BORING MACHINE HELPER 05/09/2024 5:59 AM [employer]ZING AND BORING MACHINE HELPER Amaury Lezama MD LAB BLOOD ORDERABL ES Final Result [facility] [address] [facility] Department [place] [address] * (ABNORMAL) Basic metabolic panel (05/09/2024 5:25 AM [employer]ZING AND BORING MACHINE HELPER) Sodium 136 135 - 145 mmol/L Comment:Testing performed by : [address] [address] Potassium, pl 3.8 3.3 - 4.9 mmol/L ELVI Comment:Testing performed by : [address] [address] Chloride 98 97 - 110 mmol/L ELVI Comment:Testing performed by : [address] [address] CO2 27 22 - 32 mmol/L ELVI Comment:Testing performed by : [address] [address] Anion gap 11 2 - 15 mmol/L ELVI Comment:Testing performed by : [address] [address] BUN 44(H) 6 - 25 mg/dL ELVI Comment:Testing performed by : [address] [address] Creatinine 3.50(H) 0.80 - 1.30 mg/dL ELVI Comment:Testing performed by : [address] [address] Glucose 101 70 - 199 mg/dL ELVI [...] was last revised 2022. Testing performed by: [facility], [address] [place] [address]., [address] Calcium 9.0 8.5 - 10.3 mg/dL ELVI SNIDER Comment:Testing performed by : [facility], [address] [place] [address]., [address] Blood 05/09/2024 5:25 AM [employer]ING AND BORING MACHINE HELPER 05/09/2024 5:59 AM [employer]ZING AND BORING MACHINE HELPER us Edward Sauer MD LAB BLOOD ORDERABLES Final R esult ELVI SNIDER [address] [facility] Department [place] [address] * (ABNORMAL) eGFR (05/08/2024 5:20 AM [employer]ING AND BORING MACHINE HELPER) eGFR 21(L) >=60 mL/min/1. 73 m2 Comment: [...] was last reviewed 2021. Testing performed by: [address] [address] Blood 05/08/2024 5:20 AM [employer]ING AND BORING MACHINE HELPER 05/08/2024 5:55 AM [employer]ZING AND BORING MACHINE HELPER Edward Sauer MD LAB BLOOD ORDERABLES Final R esult [facility] [address] [facility] Department of Laboratories [place], [place] [id number] * (ABNORMAL) Differential, auto (05/08/2024 5:20 AM ADZING AND BORING MACHINE HELPER) Pathologist [facility] [place] Neutrophil abs 5.5 1.5 - 6.5 K/cumm Comment:Testing performed by : [address] [address] Imm gran abs 0.0 0.0 - 0.1 K/cumm ELVI Comment:Testing performed by : [address] [address] Lymphocyte abs 0.7(L) 0.8 - 3.3 K/cumm ELVI Comment:Testing performed by : [address] [address] Monocyte abs 0.7 0.2 - 0.8 K/cumm ELVI Comment:Testing performed by : [address] [address] Eosinophil abs 0.1 0.0 - 0.5 K/cumm ELVI Comment:Testing performed by : [address] [address] Basophil abs 0.0 0.0 - 0.1 K/cumm ELVI Comment:Testing performed by : [address] [address] Neutrophil pct 77.7 % ELVI Comment: Interpretive Data Percent cell count reference ranges are not reported, since discordance with absolute values may lead to misinterpretation of CBC data. Current Interpretive Data was last revised on 2017. Testing performed by: [address] [address] Imm gran pct 0.4 % ELVI Comment: Interpretive Data Percent cell count reference ranges are not reported, since discordance with absolute values may lead to misinterpretation of CBC data. Current Interpretive Data was last revised on 2017. Testing performed by: [address] [address] Lymphocyte pct 10.4 % ELVI Comment: Interpretive Data Percent cell count reference ranges are not reported, since discordance with absolute values may lead to misinterpretation of CBC data. Current Interpretive Data was last revised on 2017. Testing performed by: [address] [address] Monocyte pct 10.1 % [facility] Comment: Interpretive Data Percent cell count reference ranges are not reported, since discordance with absolute values may lead to misinterpretation of CBC data. Current Interpretive Data was last revised on 2017. Testing performed by: [address] [address] Eosinophil pct 1.1 % [facility] Comment: Interpretive Data Percent cell count reference ranges are not reported, since discordance with absolute values may lead to misinterpretation of CBC data. Current Interpretive Data was last revised on 2017. Testing performed by: [address] [address] Basophil pct 0.3 % ELVI Comment: Interpretive Data Percent cell count reference ranges are not reported, since discordance with absolute values may lead to misinterpretation of CBC data. Current Interpretive Data was last revised on 2017. Testing performed by: [address] [address] Blood 05/08/2024 5:20 AM [employer]ING AND BORING MACHINE HELPER 05/08/2024 5:55 AM [employer]ZING AND BORING MACHINE HELPER Amaury Lezama MD LAB BLOOD ORDERABL ES Final Result ELVI [address] Department [place] [address] * (ABNORMAL) CBC with auto differential (05/08/2024 5:20 AM [employer]ZING AND BORING MACHINE HELPER) [facility] WBC 7.1 3.8 - 9.9 K/cumm Comment:Testing performed by : [address] [address] Hgb 9.0(L) 13.0 - 17.5 g/dL ELVI Comment:Testing performed by : [address] [address] Hct 29.1(L) 38.9 - 50.3 % ELVI Comment:Testing performed by : [address] [address] Plt 290 150 - 400 K/cumm ELVI Comment:Testing performed by : [address] [address] MPV 9.6 9.1 - 12.3 fL ELVI Comment:Testing performed by : [address], [address] RBC 3.56(L) 4.30 - 5.80 M/cumm ELVI Comment:Testing performed by : [address] [address] MCV 81.7 81.3 - 96.4 fL ELVI Comment:Testing performed by : [address] [address] MCH 25.3(L) 27.1 - 33.3 pg ELVI Comment:Testing performed by : [address] [address] MCHC 30.9(L) 32.3 - 35.7 g/dL ELVI Comment:Testing performed by : [address] [address] RDW CV 18.4(H) 11.1 - 14.9 % ELVI Comment:Testing performed by : [address], [address] RDW SD 53.3(H) 35.7 - 48.1 fL CERMEGAN SNIDER Comment:Testing performed by : [address] [address] NRBC abs 0.00 0.00 - 0.01 K/cumm ELVI SNIDER Comment:Testing performed by : [address] [address] Blood 05/08/2024 5:20 AM [employer]ING AND BORING MACHINE HELPER 05/08/2024 5:55 AM [employer]ING AND BORING MACHINE HELPER Amaury Lezama MD LAB BLOOD ORDERABL ES Final Result [address] [place] [address] * (ABNORMAL) Phosphorus (05/08/2024 5:20 AM [employer]ZING AND BORING MACHINE HELPER) Phosphorus, pl 4.6(H) 2.3 - 4.5 mg/dL Comment:Testing performed by : [address] [address] Blood 05/08/2024 5:20 AM [employer]ING AND BORING MACHINE HELPER 05/08/2024 5:55 AM ADZING AND BORING MACHINE HELPER Amaury Lezama MD LAB BLOOD ORDERABL ES Final Result Performing Organization Address City/[facility] Co de Phone Number [address] [place] [address] * Magnesium (05/08/2024 5:20 AM ADZING AND BORING MACHINE HELPER) Magnesium 2.1 1.4 - 2.5 mg/dL Comment:Testing performed by : [address] [address] Blood 05/08/2024 5:20 AM ADZING AND BORING MACHINE HELPER 05/08/2024 5:55 AM ADZING AND BORING MACHINE HELPER Amaury Lezama MD LAB BLOOD ORDERABL ES Final Result Performing Organization Address City/[facility]/ZIP Co de Phone Number AMADOU[address] [place] [address] * (ABNORMAL) Basic metabolic panel (05/08/2024 5:20 AM ADZING AND BORING MACHINE HELPER) Sodium 133(L) 135 - 145 mmol/L Comment:Testing performed by : [address] [address] Potassium, pl 3.8 3.3 - 4.9 mmol/L ELVI Comment:Testing performed by : [address] [address] Chloride 96(L) 97 - 110 mmol/L [facility] Comment:Testing performed by : [address] [address] CO2 26 22 - 32 mmol/L [facility] Comment:Testing performed by : [address] [address] Anion gap 11 2 - 15 mmol/L [facility] Comment:Testing performed by : [address] [address] BUN 43(H) 6 - 25 mg/dL [facility] Comment:Testing performed by : [address] [address] Creatinine 3.60(H) 0.80 - 1.30 mg/dL [facility] Comment:Testing performed by : [address] [address] Glucose 109 70 - 199 mg/dL [facility] Comment: Interpretive Data Fasting glucose >/= [...] was last revised 2022. Testing performed by: [address] [address] Calcium 8.8 8.5 - 10.3 mg/dL ELVI Comment:Testing performed by : [facility], [address] [place] [address]., [address] Blood 05/08/2024 5:20 AM AD[employer]ING AND BORING MACHINE HELPER 05/08/2024 5:55 AM [employer]ZING AND BORING MACHINE HELPER us Edward Sauer MD LAB BLOOD ORDERABLES Final R esult ELVI [address] [facility] Department [place] [address] * (ABNORMAL) eGFR (05/07/2024 3:12 AM [employer]ZING AND BORING MACHINE HELPER) eGFR 22(L) >=60 mL/min/1. 73 m2 Comment: [...] was last reviewed 2021. Testing performed by: [facility], [address] [place] [address]., [address] Blood 05/07/2024 3:12 AM ADZING AND BORING MACHINE HELPER 05/07/2024 4:37 AM [employer]ZING AND BORING MACHINE HELPER us Edward Sauer MD LAB BLOOD ORDERABLES Final R esult ELVI [address] [facility] Department [place] [address] * Differential, auto (05/07/2024 3:12 AM [employer]ZING AND BORING MACHINE HELPER) Neutrophil abs 5.0 1.5 - 6.5 K/cumm Comment:Testing performed by : [address] [address] Imm gran abs 0.0 0.0 - 0.1 K/cumm ELVI Comment:Testing performed by : [address] [address] Lymphocyte abs 1.0 0.8 - 3.3 K/cumm ELVI Comment:Testing performed by : [address] [address] Monocyte abs 0.7 0.2 - 0.8 K/cumm ELVI Comment:Testing performed by : [address] [address] Eosinophil abs 0.1 0.0 - 0.5 K/cumm ELVI Comment:Testing performed by : [address] [address] Basophil abs 0.0 0.0 - 0.1 K/cumm ELVI Comment:Testing performed by : [address] [address] Neutrophil pct 73.7 % ELVI Comment: Interpretive Data Percent cell count reference ranges are not reported, since discordance with absolute values may lead to misinterpretation of CBC data. Current Interpretive Data was last revised on 2017. Testing performed by: [address] [address] Imm gran pct 0.3 % ELVI Comment: Interpretive Data Percent cell count reference ranges are not reported, since discordance with absolute values may lead to misinterpretation of CBC data. Current Interpretive Data was last revised on 2017. Testing performed by: [address] [address] Lymphocyte pct 14.2 % [facility] Comment: Interpretive Data Percent cell count reference ranges are not reported, since discordance with absolute values may lead to misinterpretation of CBC data. Current Interpretive Data was last revised on 2017. Testing performed by: [address] [address] Monocyte pct 10.2 % [facility] Comment: Interpretive Data Percent cell count reference ranges are not reported, since discordance with absolute values may lead to misinterpretation of CBC data. Current Interpretive Data was last revised on 2017. Testing performed by: [address] [address] Eosinophil pct 1.3 % [facility] Comment: Interpretive Data Percent cell count reference ranges are not reported, since discordance with absolute values may lead to misinterpretation of CBC data. Current Interpretive Data was last revised on 2017. Testing performed by: [address] [address] Basophil pct 0.3 % [facility] Comment: Interpretive Data Percent cell count reference ranges are not reported, since discordance with absolute values may lead to misinterpretation of CBC data. Current Interpretive Data was last revised on 2017. Testing performed by: [address] [address] Blood 05/07/2024 3:12 AM [employer]ZING AND BORING MACHINE HELPER 05/07/2024 4:40 AM ADZING AND BORING MACHINE HELPER Amaury Lezama MD LAB BLOOD ORDERABL ES Final Result [facility] [address] [facility] Department [place] [address] * (ABNORMAL) CBC with auto differential (05/07/2024 3:12 AM [employer]ZING AND BORING MACHINE HELPER) WBC 6.8 3.8 - 9.9 K/cumm Comment:Testing performed by : [address] [address] Hgb 9.2(L) 13.0 - 17.5 g/dL ELVI Comment:Testing performed by : [address] [address] Hct 30.0(L) 38.9 - 50.3 % ELVI Comment:Testing performed by : [address] [address] Plt 298 150 - 400 K/cumm ELVI Comment:Testing performed by : [address] [address] MPV 9.4 9.1 - 12.3 fL ELVI Comment:Testing performed by : [address] [address] RBC 3.65(L) 4.30 - 5.80 M/cumm ELVI Comment:Testing performed by : [address] [address] MCV 82.2 81.3 - 96.4 fL ELVI Comment:Testing performed by : [address] [address] MCH 25.2(L) 27.1 - 33.3 pg ELVI Comment:Testing performed by : [address] [address] MCHC 30.7(L) 32.3 - 35.7 g/dL ELVI Comment:Testing performed by : [address] [address] RDW CV 18.1(H) 11.1 - 14.9 % ELVI Comment:Testing performed by : [address] [address] RDW SD 53.0(H) 35.7 - 48.1 fL ELVI Comment:Testing performed by : [address] [address] NRBC abs 0.00 0.00 - 0.01 K/cumm ELVI Comment:Testing performed by : [address] [address] Blood 05/07/2024 3:12 AM [employer]ING AND BORING MACHINE HELPER 05/07/2024 4:40 AM ADZING AND BORING MACHINE HELPER Amaury Lezama MD LAB BLOOD ORDERABL ES Final Result Performing Organization Address City/[facility] Co de Phone Number AMADOU[address] [place] [address] * Phosphorus (05/07/2024 3:12 AM ADZING AND BORING MACHINE HELPER) Pathologist [facility] [place] Phosphorus, pl 4.2 2.3 - 4.5 mg/dL Comment:Testing performed by : [address] [address] Blood 05/07/2024 3:12 AM ADZING AND BORING MACHINE HELPER 05/07/2024 4:37 AM ADZING AND BORING MACHINE HELPER Amaury Lezama MD LAB BLOOD ORDERABL ES Final Result Performing Organization Address [facility] de Phone Number [address] [place] [address] * Magnesium (05/07/2024 3:12 AM ADZING AND BORING MACHINE HELPER) Pathologist [facility] [place] Magnesium 1.9 1.4 - 2.5 mg/dL Comment:Testing performed by : [address] [address] Blood 05/07/2024 3:12 AM ADZING AND BORING MACHINE HELPER 05/07/2024 4:37 AM ADZING AND BORING MACHINE HELPER Amaury Lezama MD LAB BLOOD ORDERABL ES Final Result Performing Organization Address [facility] Co de Phone Number [address] [place] [address] * (ABNORMAL) Basic metabolic panel (05/07/2024 3:12 AM ADZING AND BORING MACHINE HELPER) Pathologist [facility] [place] Sodium 133(L) 135 - 145 mmol/L Comment:Testing performed by : [address] [address] Potassium, pl 3.5 3.3 - 4.9 mmol/L ELVI Comment:Testing performed by : [address] [address] Chloride 95(L) 97 - 110 mmol/L ELVI Comment:Testing performed by : [address] [address] CO2 28 22 - 32 mmol/L ELVI Comment:Testing performed by : [address] [address] Anion gap 10 2 - 15 mmol/L ELVI Comment:Testing performed by : [address] [address] BUN 40(H) 6 - 25 mg/dL ELVI Comment:Testing performed by : [address] [address] Creatinine 3.50(H) 0.80 - 1.30 mg/dL ELVI Comment:Testing performed by : [address] [address] Glucose 108 70 - 199 mg/dL ELVI [...] was last revised 2022. Testing performed by: [address] [address] Calcium 9.0 8.5 - 10.3 mg/dL ELVI Comment:Testing performed by : [address] [address] Blood 05/07/2024 3:12 AM [employer]ING AND BORING MACHINE HELPER 05/07/2024 4:37 AM [employer]ZING AND BORING MACHINE HELPER us Edward Sauer MD LAB BLOOD ORDERABLES Final R esult [facility] Department [place] [address] * (ABNORMAL) eGFR (05/06/2024 3:28 AM ADZING AND BORING MACHINE HELPER) [facility] eGFR 23(L) >=60 mL/min/1. 73 m2 Comment: [...] was last reviewed 2021. Testing performed by: [facility], [address] [place] [address]., [address] Blood 05/06/2024 3:28 AM ADZING AND BORING MACHINE HELPER 05/06/2024 5:14 AM [employer]ZING AND BORING MACHINE HELPER us Edward Sauer MD LAB BLOOD ORDERABLES Final R esult ELVI [address] [facility] Department [place] [address] * Differential, auto (05/06/2024 3:28 AM [employer]ZING AND BORING MACHINE HELPER) Neutrophil abs 5.7 1.5 - 6.5 K/cumm Comment:Testing performed by : [address], [place]., [address] Imm gran abs 0.0 0.0 - 0.1 K/cumm [facility] Comment:Testing performed by : [address], [place]., [address] Lymphocyte abs 0.8 0.8 - 3.3 K/cumm [facility] Comment:Testing performed by : [address], [place]., [address] Monocyte abs 0.7 0.2 - 0.8 K/cumm [facility] Comment:Testing performed by : [address], [place]., [address] Eosinophil abs 0.1 0.0 - 0.5 K/cumm [facility] Comment:Testing performed by : [address], [place]., [address] Basophil abs 0.0 0.0 - 0.1 K/cumm [facility] Comment:Testing performed by : [address] [address] Neutrophil pct 77.4 % [facility] Comment: Interpretive Data Percent cell count reference ranges are not reported, since discordance with absolute values may lead to misinterpretation of CBC data. Current Interpretive Data was last revised on 2017. Testing performed by: [address] [address] Imm gran pct 0.4 % [facility] Comment: Interpretive Data Percent cell count reference ranges are not reported, since discordance with absolute values may lead to misinterpretation of CBC data. Current Interpretive Data was last revised on 2017. Testing performed by: [address] [address] Lymphocyte pct 11.4 % [facility] Comment: Interpretive Data Percent cell count reference ranges are not reported, since discordance with absolute values may lead to misinterpretation of CBC data. Current Interpretive Data was last revised on 2017. Testing performed by: [address] [address] Monocyte pct 8.9 % [facility] Comment: Interpretive Data Percent cell count reference ranges are not reported, since discordance with absolute values may lead to misinterpretation of CBC data. Current Interpretive Data was last revised on 2017. Testing performed by: [address] [address] Eosinophil pct 1.4 % ELVI SNIDER Comment: Interpretive Data Percent cell count reference ranges are not reported, since discordance with absolute values may lead to misinterpretation of CBC data. Current Interpretive Data was last revised on 2017. Testing performed by: [address] [address] Basophil pct 0.5 % ELVI SNIDER Comment: Interpretive Data Percent cell count reference ranges are not reported, since discordance with absolute values may lead to misinterpretation of CBC data. Current Interpretive Data was last revised on 2017. Testing performed by: [address] [address] Blood 05/06/2024 3:28 AM [employer]ING AND BORING MACHINE HELPER 05/06/2024 5:14 AM ADZING AND BORING MACHINE HELPER us Amaury Lezama MD LAB BLOOD ORDERABL ES Final Result [facility] [address] [facility] Department of Laboratories [place], [place] [id number] * (ABNORMAL) CBC with auto differential (05/06/2024 3:28 AM [employer]ZING AND BORING MACHINE HELPER) Pathologist [facility] [place] WBC 7.4 3.8 - 9.9 K/cumm Comment:Testing performed by : [address] [address] Hgb 9.2(L) 13.0 - 17.5 g/dL LEVI SNIDER Comment:Testing performed by : [address] [address] Hct 30.1(L) 38.9 - 50.3 % ELVI SNIDER Comment:Testing performed by : [address] [address] Plt 317 150 - 400 K/cumm ELVI SNIDER Comment:Testing performed by : [address] [place] [address] MPV 9.7 9.1 - 12.3 fL ELVI SNIDER Comment:Testing performed by : [address] [address] RBC 3.69(L) 4.30 - 5.80 M/cumm ELVI SINDER Comment:Testing performed by : [address] [address] MCV 81.6 81.3 - 96.4 fL [facility]VI Comment:Testing performed by : [address] [address] MCH 24.9(L) 27.1 - 33.3 pg ELVI Comment:Testing performed by : [address] [address] MCHC 30.6(L) 32.3 - 35.7 g/dL ELVI Comment:Testing performed by : [address] [address] RDW CV 17.6(H) 11.1 - 14.9 % ELVI Comment:Testing performed by : [address] [address] RDW SD 49.9(H) 35.7 - 48.1 fL [facility]VI Comment:Testing performed by : [address] [address] NRBC abs 0.00 0.00 - 0.01 K/cumm [facility]VI Comment:Testing performed by : [address] [address] Blood 05/06/2024 3:28 AM [employer]ING AND BORING MACHINE HELPER 05/06/2024 5:14 AM [employer]ING AND BORING MACHINE HELPER us Amaury Lezama MD LAB BLOOD ORDERABL ES Final Result [facility]VI [address] [facility] Department of Laboratories [place], [place] [id number] * (ABNORMAL) Vitamin D 25 hydroxy (05/06/2024 3:28 AM [employer] AND BORING MACHINE HELPER) Pathologist [facility] [place] Vitamin D 25-OH 9.0(L) 30.0 - 80.0 ng/mL Blood 05/06/2024 3:28 AM [employer] AND BORING MACHINE HELPER 05/06/2024 6:32 AM [employer]ZING AND BORING MACHINE HELPER Marcus House MD LAB BLOOD ORDERABLES Final Re sult Performing Organization Address [facility] Co de Phone Number [address] [place] [address] * Phosphorus (05/06/2024 3:28 AM ADZING AND BORING MACHINE HELPER) [facility] Phosphorus, pl 3.4 2.3 - 4.5 mg/dL Comment:Testing performed by : [address] [address] Blood 05/06/2024 3:28 AM [employer]ING AND BORING MACHINE HELPER 05/06/2024 5:14 AM [employer]ZING AND BORING MACHINE HELPER Amaury Lezama MD LAB BLOOD ORDERABL ES Final Result Performing Organization Address [facility] de Phone Number [address] [address] * (ABNORMAL) PTH (05/06/2024 3:28 AM [employer]ZING AND BORING MACHINE HELPER) [facility] PTH 144(H) 15 - 65 pg/mL Comment:Testing performed by : [address] [address] Blood 05/06/2024 3:28 AM [employer]ING AND BORING MACHINE HELPER 05/06/2024 5:46 AM ADZING AND BORING MACHINE HELPER Marcus House MD LAB BLOOD ORDERABLES Final Re sult Performing Organization Address [facility] Co de Phone Number [address] [address] * Magnesium (05/06/2024 3:28 AM [employer]ZING AND BORING MACHINE HELPER) [facility] Magnesium 1.8 1.4 - 2.5 mg/dL Comment:Testing performed by : [address] [address] Blood 05/06/2024 3:28 AM [employer]ING AND BORING MACHINE HELPER 05/06/2024 5:14 AM ADZING AND BORING MACHINE HELPER Amaury Lezama MD LAB BLOOD ORDERABL ES Final Result [facility] [address] [facility] Department [place] [address] * (ABNORMAL) Basic metabolic panel (05/06/2024 3:28 AM [employer]ZING AND BORING MACHINE HELPER) Sodium 133(L) 135 - 145 mmol/L Comment:Testing performed by : [address] [address] Potassium, pl 3.6 3.3 - 4.9 mmol/L ELVI Comment:Testing performed by : [address] [address] Chloride 96(L) 97 - 110 mmol/L ELVI Comment:Testing performed by : [address] [address] CO2 27 22 - 32 mmol/L ELVI Comment:Testing performed by : [address] [address] Anion gap 10 2 - 15 mmol/L ELVI Comment:Testing performed by : [address] [address] BUN 35(H) 6 - 25 mg/dL ELVI Comment:Testing performed by : [address] [address] Creatinine 3.30(H) 0.80 - 1.30 mg/dL ELVI Comment:Testing performed by : [address] [address] Glucose 112 70 - 199 mg/dL ELVI [...] was last revised 2022. Testing performed by: [facility], [address] [place] [address]., [address] Calcium 8.9 8.5 - 10.3 mg/dL [facility]VI SNIDER Comment:Testing performed by : [facility], [address] [place] [address]., [address] Blood 05/06/2024 3:28 AM [employer]ZING AND BORING MACHINE HELPER 05/06/2024 5:14 AM ADZING AND BORING MACHINE HELPER us Edward Sauer MD LAB BLOOD ORDERABLES Final R esult [facility]VI [address] [facility] Department [place] [address] * TRANSTHORACIC ECHO (TTE) COMPLETE W DOPPLER/CF W CONTRAST (05/05/2024 10:40 AM [employer]ZING AND BORING MACHINE HELPER) Anatomical Region Laterality Modality Ultrasound 05/05/2024 9:59 AM ADZING AND BORING MACHINE HELPER Narrative 05/06/2024 2:57 PM ADZING AND BORING MACHINE HELPER ? Adult Echocardiogram + ----- + :Name: SHARRON HEADLEY, IIIStudy Date: 05/05/2024 ?Status: MHE ?: : ? Patient Location: MHE ICU^[id number]^MHHeight: 72 in ?: : ? Weight: 208 lbBP: 137/59 mmHg: :: 1985 ?Gender: Male ?BSA: 2.2 m2 ?: :Reason For Study: severe Chf ?: :Ordering Physician: ? : :DARBARI, GERADL ?: : ?: :Performed By: Razia ?: :JONATHAN Baeza ?: + ----- + Procedure A two-dimensional transthoracic echocardiogram with color flow and Doppler was performed. A contrast injection of Definity was performed to improve assessment of LV function. Definity lot # is ' [id number] '. Left Ventricle LV seems mild to [...] ?LV V1 max: ? Ao mean P.0 idTa840.0 cm/sec ? Ao V2 VTI: 23.5 cm [...] Date: 05/05/2024Status: SOURAV : : Patient Location: [facility]^[id number]^MHHeight: 72 in : : : 208 lbBP: 137/59 mmHg: :: 1985 Gender: MaleBSA: 2.2 m2 : :Reason For Study: severe Chf: :Ordering Physician:: :GERALD LUCAS: :: :Performed By: Razia: :JONATHAN Baeza: + ----- + Procedure A two-dimensional transthoracic echocardiogram with color flow and Dopplerwas performed. A contrast injection of Definity was performed to improve assessment of LV function. Definity lot # is ' [id number] '. Left Ventricle LV seems mild to [...] cm/sec LV V1 max: Ao mean P.0 gpOi398.0 cm/sec Ao V2 VTI: 23.5 cm LV [...] Result * (ABNORMAL) eGFR (05/05/2024 1:45 AM [employer]ZING AND BORING MACHINE HELPER) eGFR 25(L) >=60 mL/min/1. 73 m2 Comment: [...] was last reviewed 2021. Testing performed by: [facility], [address] [place] [address], [place]., [address] Blood 05/05/2024 1:45 AM [employer]ZING AND BORING MACHINE HELPER 05/05/2024 2:48 AM ADZING AND BORING MACHINE HELPER us Edward Sauer MD LAB BLOOD ORDERABLES Final R esult [facility] [address] [facility] Department [place] [address] * Differential, auto (05/05/2024 1:45 AM ADZING AND BORING MACHINE HELPER) Neutrophil abs 5.2 1.5 - 6.5 K/cumm Comment:Testing performed by : [address] [address] Imm gran abs 0.0 0.0 - 0.1 K/cumm ELVI Comment:Testing performed by : [address] [address] Lymphocyte abs 1.4 0.8 - 3.3 K/cumm ELVI Comment:Testing performed by : [address] [address] Monocyte abs 0.7 0.2 - 0.8 K/cumm ELVI Comment:Testing performed by : [address] [address] Eosinophil abs 0.2 0.0 - 0.5 K/cumm ELVI Comment:Testing performed by : [address] [address] Basophil abs 0.0 0.0 - 0.1 K/cumm ELVI Comment:Testing performed by : [address] [address] Neutrophil pct 68.6 % ELVI Comment: Interpretive Data Percent cell count reference ranges are not reported, since discordance with absolute values may lead to misinterpretation of CBC data. Current Interpretive Data was last revised on 2017. Testing performed by: [address] [address] Imm gran pct 0.5 % ELVI Comment: Interpretive Data Percent cell count reference ranges are not reported, since discordance with absolute values may lead to misinterpretation of CBC data. Current Interpretive Data was last revised on 2017. Testing performed by: [address] [address] Lymphocyte pct 18.6 % ELVI Comment: Interpretive Data Percent cell count reference ranges are not reported, since discordance with absolute values may lead to misinterpretation of CBC data. Current Interpretive Data was last revised on 2017. Testing performed by: [address] [address] Monocyte pct 8.9 % ELVI Comment: Interpretive Data Percent cell count reference ranges are not reported, since discordance with absolute values may lead to misinterpretation of CBC data. Current Interpretive Data was last revised on 2017. Testing performed by: [address] [address] Eosinophil pct 2.9 % ELVI Comment: Interpretive Data Percent cell count reference ranges are not reported, since discordance with absolute values may lead to misinterpretation of CBC data. Current Interpretive Data was last revised on 2017. Testing performed by: [address] [address] Basophil pct 0.5 % ELVI Comment: Interpretive Data Percent cell count reference ranges are not reported, since discordance with absolute values may lead to misinterpretation of CBC data. Current Interpretive Data was last revised on 2017. Testing performed by: [address] [address] Blood 05/05/2024 1:45 AM ADZING AND BORING MACHINE HELPER 05/05/2024 2:48 AM ADZING AND BORING MACHINE HELPER Amaury Lezama MD LAB BLOOD ORDERABL ES Final Result [facility] [address] [facility] Department [place] [address] * (ABNORMAL) CBC with auto differential (05/05/2024 1:45 AM ADZING AND BORING MACHINE HELPER) WBC 7.6 3.8 - 9.9 K/cumm Comment:Testing performed by : [address] [address] Hgb 10.2(L) 13.0 - 17.5 g/dL ELVI SNIDER Comment:Testing performed by : [address] [address] Hct 33.5(L) 38.9 - 50.3 % ELVI Comment:Testing performed by : [address] [address] Plt 319 150 - 400 K/cumm [place]VI Comment:Testing performed by : [address] [address] MPV 9.9 9.1 - 12.3 fL [facility]VI Comment:Testing performed by : [address] [address] RBC 4.07(L) 4.30 - 5.80 M/cumm [place]VI Comment:Testing performed by : [address] [address] MCV 82.3 81.3 - 96.4 fL [place] Comment:Testing performed by : [address] [address] MCH 25.1(L) 27.1 - 33.3 pg [facility]VI Comment:Testing performed by : [address] [address] MCHC 30.4(L) 32.3 - 35.7 g/dL [facility] Comment:Testing performed by : [address] [address] RDW CV 17.0(H) 11.1 - 14.9 % ELVI Comment:Testing performed by : [address] [address] RDW SD 50.0(H) 35.7 - 48.1 fL [facility]VI Comment:Testing performed by : [address] [address] NRBC abs 0.00 0.00 - 0.01 K/cumm [place]VI Comment:Testing performed by : [address] [address] Blood 05/05/2024 1:45 AM ADZING AND BORING MACHINE HELPER 05/05/2024 2:48 AM ADZING AND BORING MACHINE HELPER us Amaury Lezama MD LAB BLOOD ORDERABL ES Final Result [facility] [address] [address] * Phosphorus (05/05/2024 1:45 AM ADZING AND BORING MACHINE HELPER) [facility] Phosphorus, pl 3.1 2.3 - 4.5 mg/dL Comment:Testing performed by : [address] [address] Blood 05/05/2024 1:45 AM ADZING AND BORING MACHINE HELPER 05/05/2024 2:48 AM ADZING AND BORING MACHINE HELPER Amaury Lezama MD LAB BLOOD ORDERABL ES Final Result [address] [address] * Magnesium (05/05/2024 1:45 AM ADZING AND BORING MACHINE HELPER) [facility] Magnesium 1.8 1.4 - 2.5 mg/dL Comment:Testing performed by : [address] [address] Blood 05/05/2024 1:45 AM ADZING AND BORING MACHINE HELPER 05/05/2024 2:48 AM ADZING AND BORING MACHINE HELPER Amaury Lezama MD LAB BLOOD ORDERABL ES Final Result Performing Organization Address City/[facility]/ZIP Co de Phone Number [address] [address] * (ABNORMAL) Basic metabolic panel (05/05/2024 1:45 AM ADZING AND BORING MACHINE HELPER) [facility] Sodium 134(L) 135 - 145 mmol/L Comment:Testing performed by : [address] [address] Potassium, pl 3.5 3.3 - 4.9 mmol/L ELVI Comment:Testing performed by : [address] [address] Chloride 95(L) 97 - 110 mmol/L [facility] SNIDER Comment:Testing performed by : [address] [address] CO2 28 22 - 32 mmol/L [facility]VI Comment:Testing performed by : [address] [address] Anion gap 11 2 - 15 mmol/L ELVI Comment:Testing performed by : [address] [address] BUN 33(H) 6 - 25 mg/dL ELVI Comment:Testing performed by : [address] [address] Creatinine 3.10(H) 0.80 - 1.30 mg/dL ELVI Comment:Testing performed by : [address] [address] Glucose 108 70 - 199 mg/dL ELVI [...] was last revised 2022. Testing performed by: [address] [address] Calcium 8.5 8.5 - 10.3 mg/dL ELVI Comment:Testing performed by : [address] [address] Blood 05/05/2024 1:45 AM ADZING AND BORING MACHINE HELPER 05/05/2024 2:48 AM ADZING AND BORING MACHINE HELPER us Edward Sauer MD LAB BLOOD ORDERABLES Final R esult [facility]VI SNIDER [address] [facility] Department [place] [address] * Volume and period, urine, 24 hour (05/04/2024 9:41 AM ADZING AND BORING MACHINE HELPER) Volume, ur 7,725 mL Comment:Testing performed by : [facility], [address] [place] [address]., [address] Period, Urine Collection 1,440 min ELVI Comment:Testing performed by : [facility], [address] [place] [address]., [address] Urine 05/04/2024 9:41 AM ADZING AND BORING MACHINE HELPER 05/04/2024 9:41 AM ADZING AND BORING MACHINE HELPER Amaury Lezama MD LAB URINE ORDERABL ES Final Result [facility] [address] [facility] Department [place] [address] * (ABNORMAL) Metanephrines, urine, 24 hour (05/04/2024 8:45 AM ADZING AND BORING MACHINE HELPER) Pathologist [facility] [place] Metanephrines, 24 hr ur 433(H) mcg/24H [facility] Comment: REFERENCE VALUE 44-261 (Normotensive) <400 (Hypertensive) Testing performed by: [facility], [address] [place] [address]., [address] Metanephrines Comment Not Reported ELVI Comment:Testing performed by : [facility], [address] [place] [address]., [address] Normetanephrine, 24 hour ur 1190(H) mcg/24H [facility]VI Comment: REFERENCE VALUE 119-451 (Normotensive) <900 (Hypertensive) Testing performed by: [facility], [address] [place] [address]., [address] Metanephrine, Total, 24 Hour Urine 1623(H) mcg/24H [facility]VI Comment: REFERENCE VALUE 211-646 (Normotensive) <1300 (Hypertensive) Testing performed by: [facility], [address] [place] [address]., [address] Urine 05/04/2024 8:45 AM ADZING AND BORING MACHINE HELPER 05/04/2024 9:41 AM ADZING AND BORING MACHINE HELPER Amaury Lezama MD LAB URINE ORDERABL ES Final Result [facility] [address] [facility] Department [place] [address] [facility] * (ABNORMAL) eGFR (05/04/2024 3:45 AM ADZING AND BORING MACHINE HELPER) eGFR 25(L) >=60 mL/min/1. 73 m2 Comment: [...] was last reviewed 2021. Testing performed by: [facility], [address] [place] [address]., [address] Blood 05/04/2024 3:45 AM ADZING AND BORING MACHINE HELPER 05/04/2024 4:46 AM ADZING AND BORING MACHINE HELPER Amaury Lezama MD LAB BLOOD ORDERABL ES Final Result [facility] [address] [facility] Department [place] [address] * Differential, auto (05/04/2024 3:45 AM ADZING AND BORING MACHINE HELPER) Neutrophil abs 5.0 1.5 - 6.5 K/cumm Comment:Testing performed by : [address] [address] Imm gran abs 0.0 0.0 - 0.1 K/cumm ELVI Comment:Testing performed by : [address] [address] Lymphocyte abs 1.5 0.8 - 3.3 K/cumm [facility]VI Comment:Testing performed by : [address] [address] Monocyte abs 0.6 0.2 - 0.8 K/cumm ELVI Comment:Testing performed by : [address] [address] Eosinophil abs 0.3 0.0 - 0.5 K/cumm [place]VI Comment:Testing performed by : [address] [address] Basophil abs 0.0 0.0 - 0.1 K/cumm [facility]VI Comment:Testing performed by : [address] [address] Neutrophil pct 67.0 % ELVI Comment: Interpretive Data Percent cell count reference ranges are not reported, since discordance with absolute values may lead to misinterpretation of CBC data. Current Interpretive Data was last revised on 2017. Testing performed by: [address] [address] Imm gran pct 0.4 % ELVI Comment: Interpretive Data Percent cell count reference ranges are not reported, since discordance with absolute values may lead to misinterpretation of CBC data. Current Interpretive Data was last revised on 2017. Testing performed by: [address] [address] Lymphocyte pct 20.6 % [facility] Comment: Interpretive Data Percent cell count reference ranges are not reported, since discordance with absolute values may lead to misinterpretation of CBC data. Current Interpretive Data was last revised on 2017. Testing performed by: [address] [address] Monocyte pct 8.0 % [facility] Comment: Interpretive Data Percent cell count reference ranges are not reported, since discordance with absolute values may lead to misinterpretation of CBC data. Current Interpretive Data was last revised on 2017. Testing performed by: [address] [address] Eosinophil pct 3.5 % [facility] Comment: Interpretive Data Percent cell count reference ranges are not reported, since discordance with absolute values may lead to misinterpretation of CBC data. Current Interpretive Data was last revised on 2017. Testing performed by: [address] [address] Basophil pct 0.5 % [facility] Comment: Interpretive Data Percent cell count reference ranges are not reported, since discordance with absolute values may lead to misinterpretation of CBC data. Current Interpretive Data was last revised on 2017. Testing performed by: [address] [address] Blood 05/04/2024 3:45 AM ADZING AND BORING MACHINE HELPER 05/04/2024 4:57 AM ADZING AND BORING MACHINE HELPER us Amaury Lezama MD LAB BLOOD ORDERABL ES Final Result [facility] [address] [facility] Department [place] [address] * (ABNORMAL) CBC with auto differential (05/04/2024 3:45 AM ADZING AND BORING MACHINE HELPER) WBC 7.4 3.8 - 9.9 K/cumm Comment:Testing performed by : [address] [address] Hgb 9.5(L) 13.0 - 17.5 g/dL [facility]VI Comment:Testing performed by : [address] [address] Hct 30.6(L) 38.9 - 50.3 % [facility]VI Comment:Testing performed by : [address] [address] Plt 334 150 - 400 K/cumm [place]VI Comment:Testing performed by : [address] [address] MPV 10.1 9.1 - 12.3 fL [facility]VI Comment:Testing performed by : [address] [address] RBC 3.79(L) 4.30 - 5.80 M/cumm [facility]VI Comment:Testing performed by : [address] [address] MCV 80.7(L) 81.3 - 96.4 fL [facility] Comment:Testing performed by : [address] [address] MCH 25.1(L) 27.1 - 33.3 pg [place]VI Comment:Testing performed by : [address] [address] MCHC 31.0(L) 32.3 - 35.7 g/dL [place] Comment:Testing performed by : [address] [address] RDW CV 16.7(H) 11.1 - 14.9 % ELVI Comment:Testing performed by : [address] [address] RDW SD 48.8(H) 35.7 - 48.1 fL [place] Comment:Testing performed by : [address] [address] NRBC abs 0.00 0.00 - 0.01 K/cumm [place] Comment:Testing performed by : [address] [address] Blood 05/04/2024 3:45 AM ADZING AND BORING MACHINE HELPER 05/04/2024 4:57 AM ADZING AND BORING MACHINE HELPER Amaury Lezama MD LAB BLOOD ORDERABL ES Final Result Performing Organization Address City/[facility] Co de Phone Number [address] [address] * Phosphorus (05/04/2024 3:45 AM ADZING AND BORING MACHINE HELPER) Phosphorus, pl 3.1 2.3 - 4.5 mg/dL Comment:Testing performed by : [address] [address] Blood 05/04/2024 3:45 AM ADZING AND BORING MACHINE HELPER 05/04/2024 4:46 AM ADZING AND BORING MACHINE HELPER Amaury Lezama MD LAB BLOOD ORDERABL ES Final Result Performing Organization Address [facility] Co de Phone Number [address] [address] * Magnesium (05/04/2024 3:45 AM ADZING AND BORING MACHINE HELPER) [facility] Magnesium 1.9 1.4 - 2.5 mg/dL Comment:Testing performed by : [address] [address] Blood 05/04/2024 3:45 AM ADZING AND BORING MACHINE HELPER 05/04/2024 4:46 AM ADZING AND BORING MACHINE HELPER Amaury Lezama MD LAB BLOOD ORDERABL ES Final Result Performing Organization Address [facility] Co de Phone Number [address] [address] * (ABNORMAL) Basic metabolic panel (05/04/2024 3:45 AM ADZING AND BORING MACHINE HELPER) Pathologist [facility] [place] Sodium 136 135 - 145 mmol/L Comment:Testing performed by : [address] [address] Potassium, pl 3.6 3.3 - 4.9 mmol/L ELVI Comment:Testing performed by : [address] [address] Chloride 97 97 - 110 mmol/L [facility]VI Comment:Testing performed by : [address], [place]., [address] CO2 28 22 - 32 mmol/L [facility] Comment:Testing performed by : [address] [address] Anion gap 11 2 - 15 mmol/L [place] Comment:Testing performed by : [address] [address] BUN 33(H) 6 - 25 mg/dL [facility] Comment:Testing performed by : [address] [address] Creatinine 3.10(H) 0.80 - 1.30 mg/dL [place] Comment:Testing performed by : [address] [address] Glucose 93 70 - 199 mg/dL [facility] Comment: Interpretive Data Fasting glucose >/= [...] was last revised 2022. Testing performed by: [address] [address] Calcium 8.5 8.5 - 10.3 mg/dL [place] Comment:Testing performed by : [address] [address] Blood 05/04/2024 3:45 AM ADZING AND BORING MACHINE HELPER 05/04/2024 4:46 AM ADZING AND BORING MACHINE HELPER us Amaury Lezama MD LAB BLOOD ORDERABL ES Final Result [facility] [address] [facility] Department [place] [address] * US Renal Doppler (05/03/2024 9:40 AM ADZING AND BORING MACHINE HELPER) Anatomical Region Laterality Modality Vascular N/A Ultrasound 05/03/2024 Narrative 05/07/2024 6:55 AM ADZING AND BORING MACHINE HELPER [employer] Job ID: [id number] [employer] Document ID: [id number] Dictated date/time: [id number] BILATERAL RENAL DOPPLER REASON FOR EXAM FMD. [...] artery stenosis bilaterally. Job ID/Internal Job ID: [id number] Amaury Lzeama MD IMG US PROCEDURES Final Result * US Kidney Complete (aka RENAL) (05/03/2024 7:27 AM ADZING AND BORING MACHINE HELPER) Anatomical Region Laterality Modality Kidney N/A Ultrasound 05/03/2024 8:00 AM ADZING AND BORING MACHINE HELPER Narrative 05/03/2024 8:01 AM ADZING AND BORING MACHINE HELPER EXAM DESCRIPTION: US KIDNEY COMPLETE REASON FOR [...] AM T: ??05/03/2024 8:01 AM Report ID: [id number] Reading Location: ??[id number] Procedure Note Jaskaran Tobin Jr., MD - [...] by Jaskaran Tobin M.D. CH: Report ID: [id number] Reading Location: [id number] Amaury Lezama MD IMG US PROCEDURES Final Result * (ABNORMAL) eGFR (05/03/2024 5:28 AM ADZING AND BORING MACHINE HELPER) eGFR 24(L) >=60 mL/min/1. 73 m2 Comment: [...] was last reviewed 2021. Testing performed by: [address] [address] Blood 05/03/2024 5:28 AM ADZING AND BORING MACHINE HELPER 05/03/2024 5:35 AM ADZING AND BORING MACHINE HELPER us Timmy Hernandez MD LAB BLOOD ORDERABLES Final Result [facility] [address] [facility] Department [place] [address] * Differential, auto (05/03/2024 5:28 AM ADZING AND BORING MACHINE HELPER) Neutrophil abs 4.5 1.5 - 6.5 K/cumm Comment:Testing performed by : [address] [address] Imm gran abs 0.0 0.0 - 0.1 K/cumm [facility] SNIDER Comment:Testing performed by : [address] [address] Lymphocyte abs 1.4 0.8 - 3.3 K/cumm [place] Comment:Testing performed by : [address] [address] Monocyte abs 0.4 0.2 - 0.8 K/cumm [place] Comment:Testing performed by : [address] [address] Eosinophil abs 0.2 0.0 - 0.5 K/cumm [facility] Comment:Testing performed by : [address], [place]., [address] Basophil abs 0.0 0.0 - 0.1 K/cumm [place] Comment:Testing performed by : [address] [address] Neutrophil pct 68.6 % [facility] Comment: Interpretive Data Percent cell count reference ranges are not reported, since discordance with absolute values may lead to misinterpretation of CBC data. Current Interpretive Data was last revised on 2017. Testing performed by: [address] [address] Imm gran pct 0.3 % [facility] Comment: Interpretive Data Percent cell count reference ranges are not reported, since discordance with absolute values may lead to misinterpretation of CBC data. Current Interpretive Data was last revised on 2017. Testing performed by: [address] [address] Lymphocyte pct 21.3 % [facility] Comment: Interpretive Data Percent cell count reference ranges are not reported, since discordance with absolute values may lead to misinterpretation of CBC data. Current Interpretive Data was last revised on 2017. Testing performed by: [address] [address] Monocyte pct 6.2 % [facility] Comment: Interpretive Data Percent cell count reference ranges are not reported, since discordance with absolute values may lead to misinterpretation of CBC data. Current Interpretive Data was last revised on 2017. Testing performed by: [address] [address] Eosinophil pct 3.0 % [facility] SNIDER Comment: Interpretive Data Percent cell count reference ranges are not reported, since discordance with absolute values may lead to misinterpretation of CBC data. Current Interpretive Data was last revised on 2017. Testing performed by: [address] [address] Basophil pct 0.6 % [facility] SNIDER Comment: Interpretive Data Percent cell count reference ranges are not reported, since discordance with absolute values may lead to misinterpretation of CBC data. Current Interpretive Data was last revised on 2017. Testing performed by: [address] [address] Blood 05/03/2024 5:28 AM ADZING AND BORING MACHINE HELPER 05/03/2024 5:35 AM ADZING AND BORING MACHINE HELPER us Timmy Hernandez MD LAB BLOOD ORDERABLES Final Result [facility] [address] [facility] Department [place] [address] * (ABNORMAL) CBC with auto differential (05/03/2024 5:28 AM ADZING AND BORING MACHINE HELPER) WBC 6.6 3.8 - 9.9 K/cumm Comment:Testing performed by : [address] [address] Hgb 9.1(L) 13.0 - 17.5 g/dL [facility] SNIDER Comment:Testing performed by : [address] [address] Hct 29.7(L) 38.9 - 50.3 % [facility] SNIDER Comment:Testing performed by : [address] [address] Plt 304 150 - 400 K/cumm [place] SNIDER Comment:Testing performed by : [address] [address] MPV 9.1 9.1 - 12.3 fL [facility] SNIDER Comment:Testing performed by : [address] [address] RBC 3.70(L) 4.30 - 5.80 M/cumm [facility] Comment:Testing performed by : [facility], [address] [place] [address]., [address] MCV 80.3(L) 81.3 - 96.4 fL [place] Comment:Testing performed by : [address] [address] MCH 24.6(L) 27.1 - 33.3 pg [place] Comment:Testing performed by : [address] [address] MCHC 30.6(L) 32.3 - 35.7 g/dL [place] Comment:Testing performed by : [address] [address] RDW CV 16.6(H) 11.1 - 14.9 % [facility] Comment:Testing performed by : [address] [address] RDW SD 48.3(H) 35.7 - 48.1 fL ELVI Comment:Testing performed by : [address] [address] NRBC abs 0.00 0.00 - 0.01 K/cumm ELVI Comment:Testing performed by : [address] [address] Blood 05/03/2024 5:28 AM [employer]ZING AND BORING MACHINE HELPER 05/03/2024 5:35 AM ADZING AND BORING MACHINE HELPER us Timmy Hernandez MD LAB BLOOD ORDERABLES Final Result [facility] [address] [facility] Department [place] [address] * Phosphorus (05/03/2024 5:28 AM ADZING AND BORING MACHINE HELPER) Phosphorus, pl 3.4 2.3 - 4.5 mg/dL Comment:Testing performed by : [address] [address] Blood 05/03/2024 5:28 AM ADZING AND BORING MACHINE HELPER 05/03/2024 5:35 AM ADZING AND BORING MACHINE HELPER Timmy Hernandez MD LAB BLOOD ORDERABLES Final Result ELVI [address] [place] [address] * Magnesium (05/03/2024 5:28 AM ADZING AND BORING MACHINE HELPER) Pathologist [facility] Magnesium 2.1 1.4 - 2.5 mg/dL Comment:Testing performed by : [address] [address] Blood 05/03/2024 5:28 AM ADZING AND BORING MACHINE HELPER 05/03/2024 5:35 AM ADZING AND BORING MACHINE HELPER Timmy Hernandez MD LAB BLOOD ORDERABLES Final Result Performing Organization Address [facility] Co de Phone Number ELVI [address] [place] [address] * (ABNORMAL) Comprehensive metabolic panel (05/03/2024 5:28 AM ADZING AND BORING MACHINE HELPER) [facility] Sodium 132(L) 135 - 145 mmol/L Comment:Testing performed by : [address] [address] Potassium, pl 3.3 3.3 - 4.9 mmol/L ELVI Comment:Testing performed by : [address] [address] Chloride 95(L) 97 - 110 mmol/L ELVI Comment:Testing performed by : [address] [address] CO2 27 22 - 32 mmol/L ELVI Comment:Testing performed by : [address] [address] Anion gap 10 2 - 15 mmol/L ELVI Comment:Testing performed by : [address] [address] BUN 38(H) 6 - 25 mg/dL ELVI Comment:Testing performed by : [address] [address] Creatinine 3.20(H) 0.80 - 1.30 mg/dL ELVI Comment:Testing performed by : [address] [address] Glucose 122 70 - 199 mg/dL ELVI [...] was last revised 2022. Testing performed by: [address] [address] Calcium 8.0(L) 8.5 - 10.3 mg/dL ELVI Comment:Testing performed by : [address] [address] Bilirubin, total 0.5 0.1 - 1.2 mg/dL ELVI Comment:Testing performed by : [address] [address] Protein, pl 6.5 6.5 - 8.5 g/dL ELVI Comment:Testing performed by : [address] [address] Albumin 3.0(L) 3.5 - 5.0 g/dL ELVI Comment:Testing performed by : [address] [address] Alk phos 78 40 - 130 Units/L ELVI Comment:Testing performed by : [address] [address] ALT 35 7 - 55 Units/L ELVI Comment:Testing performed by : [address] [address] AST 24 10 - 50 Units/L ELVI Comment:Testing performed by : [address] [address] Blood 05/03/2024 5:28 AM ADZING AND BORING MACHINE HELPER 05/03/2024 5:35 AM ADZING AND BORING MACHINE HELPER us Timmy Hernandez MD LAB BLOOD ORDERABLES Final Result Performing Organization Address [facility] de Phone Number ELVI [address] [facility] [place] [address] * (ABNORMAL) Protein / creatinine ratio, urine, random (05/02/2024 5:41 PM ADZING AND BORING MACHINE HELPER) [facility] Protein, ur, quant 75.0 mg/dL Comment: Interpretive Data No reference range established. Current interpretive data was last revised 2018. Testing performed by: [address] [address] Creatinine Ur 60.1 mg/dL ELVI Comment: Interpretive Data No reference range established. Current interpretive data was last revised 2018. Testing performed by: [address] [address] Protein/creatinin e ratio 1,247.9(H ) 0.0 - 180.0 mg/g CR ELVI Comment:Testing performed by : [address] [address] Urine 05/02/2024 5:41 PM ADZING AND BORING MACHINE HELPER 05/02/2024 5:52 PM ADZING AND BORING MACHINE HELPER us Amaury Lezmaa MD LAB URINE ORDERABL ES Final Result Performing Organization Address [facility] de Phone Number [facility] [address] [facility] [place] [address] * (ABNORMAL) eGFR (05/02/2024 4:21 PM ADZING AND BORING MACHINE HELPER) [facility] eGFR 22(L) >=60 mL/min/1. 73 m2 Comment: [...] was last reviewed 2021. Testing performed by: [facility], [address] [place] [address]., [address] Blood 05/02/2024 4:21 PM ADZING AND BORING MACHINE HELPER 05/02/2024 4:45 PM ADZING AND BORING MACHINE HELPER Rosa Sofia MD LAB BLOOD ORDERABLES Abigail soria Result ELVI [address] [facility] Department [place] [address] * (ABNORMAL) Metanephrines, fractionated free, blood (05/02/2024 4:21 PM ADZING AND BORING MACHINE HELPER) Metanephrines 0.47 <0.50 nmol/L [facility] Comment: ADDITIONAL INFORMATION This test was developed and its performance characteristics determined by [facility] in a manner consistent with CLIA requirements. This test has not been cleared or approved by the U.S. Food and Drug Administration. Test Performed by: [facility] [address] [place] [id number] Asset Protection Lead: Darian Koo Ph.D.; CLIA# [id number] Testing performed by: [facility], [address] [place] [address]., [address] Normetanephrines 1.4(H) <0.90 nmol/L ELVI SNIDER Comment:Testing performed by : [facility], [address] [place] [address]., [address] Blood 05/02/2024 4:21 PM ADZING AND BORING MACHINE HELPER 05/02/2024 4:45 PM ADZING AND BORING MACHINE HELPER us Amaury Lezama MD LAB BLOOD ORDERABL ES Final Result [facility]VI SNIDER [address] [facility] Department [place] [address] [facility] * Renin activity (05/02/2024 4:21 PM ADZING AND BORING MACHINE HELPER) Renin 15 ng/mL/H [facility] Comment: REFERENCE VALUE (Peripheral vein specimen) Na-deplete, upright: ??Mean: 5.9 ??Range: 2.9-10.8 Na-replete, upright: ??Mean: 1.0 ??Range: < or =0.6-3.0 ADDITIONAL INFORMATION Testing performed by Liquid Chromatography-Tandem Mass Spectrometry (LC-MS/MS). This test was developed and its performance characteristics determined by [facility] in a manner consistent with CLIA requirements. This test has not been cleared or approved by the U.S. Food and Drug Administration. Test Performed by: [facility] [address] [place] [address] Asset Protection Lead: Darian Koo Ph.D.; CLIA# [id number] Testing performed by: [address] [address] Blood 05/02/2024 4:21 PM ADZING AND BORING MACHINE HELPER 05/02/2024 4:24 PM ADZING AND BORING MACHINE HELPER Amaury Lezama MD LAB BLOOD ORDERABL ES Final Result Performing Organization Address [facility] Co de Phone Number ELVI [address] [address] [facility] * HIV 1/2 Antibody plus p24 Antigen Blood (05/02/2024 4:21 PM ADZING AND BORING MACHINE HELPER) Pathologist [facility] HIV 1/2 ab + p24 ag Nonreactive Nonreactive Comment:Nonreactive for HIV- 1 antigen and HIV-1/HIV-2 antibodies. No laboratory evidence of HIV infection. If acute HIV infection is suspected, consider testing for HIV-1 RNA. Current interpretive data was last revised on 22. Blood 05/02/2024 4:21 PM ADZING AND BORING MACHINE HELPER 05/02/2024 6:24 PM ADZING AND BORING MACHINE HELPER Amaury Lezama MD LAB MICROBIOLOGY - GENERAL ORDERABLES Final Result Performing Organization Address [facility] de Phone Number ELVI [address] [address] * Aldosterone (05/02/2024 4:21 PM ADZING AND BORING MACHINE HELPER) Pathologist [facility] Aldosterone 15 <=21 ng/dL [facility] Comment: ADDITIONAL INFORMATION Reference range for patients 11 years and older is based on upright A.M. collection from subjects without sodium restrictions. This test was developed and its performance characteristics determined by [facility] in a manner consistent with CLIA requirements. This test has not been cleared or approved by the U.S. Food and Drug Administration. Test Performed by: [facility] [address] [place] [address] Asset Protection Lead: Darian Koo Ph.D.; CLIA# [id number] Testing performed by: [address] [address] Blood 05/02/2024 4:21 PM ADZING AND BORING MACHINE HELPER 05/02/2024 4:45 PM ADZING AND BORING MACHINE HELPER Amaury Lezama MD LAB BLOOD ORDERABL ES Final Result Performing Organization Address [facility] Co de Phone Number ELVI [address] [place] [address] [facility] * (ABNORMAL) Erythrocyte sedimentation rate (05/02/2024 4:21 PM ADZING AND BORING MACHINE HELPER) Erythrocyte sedimentation rate 61(H) 1 - 15 mm/hr Comment:Testing performed by : [address] [address] Blood 05/02/2024 4:21 PM ADZING AND BORING MACHINE HELPER 05/02/2024 4:45 PM ADZING AND BORING MACHINE HELPER Amaury Lezama MD LAB BLOOD ORDERABL ES Final Result Performing Organization Address [facility] de Phone Number ELVI [address] [address] * (ABNORMAL) D-dimer, quantitative (05/02/2024 4:21 PM ADZING AND BORING MACHINE HELPER) D-Dimer 880(H) <=499 ng/mL FEU Comment: Interpretive [...] last revised on 2019. Testing performed by: [address] [address] Blood 05/02/2024 4:21 PM ADZING AND BORING MACHINE HELPER 05/02/2024 4:45 PM ADZING AND BORING MACHINE HELPER Amaury Lezama MD LAB BLOOD ORDERABL ES Final Result Performing Organization Address City/[facility]/ZIP Co de Phone Number [address] [place] [address] * CRP (acute phase) (05/02/2024 4:21 PM ADZING AND BORING MACHINE HELPER) CRP 5.0 <=10.0 mg/L Comment:Testing performed by : [address] [address] Blood 05/02/2024 4:21 PM ADZING AND BORING MACHINE HELPER 05/02/2024 4:45 PM ADZING AND BORING MACHINE HELPER Amaury Lezama MD LAB BLOOD ORDERABL ES Final Result Performing Organization Address [facility] Co de Phone Number [address] [address] * Magnesium (05/02/2024 4:21 PM ADZING AND BORING MACHINE HELPER) Magnesium 1.8 1.4 - 2.5 mg/dL Comment:Testing performed by : [address] [address] Blood 05/02/2024 4:21 PM ADZING AND BORING MACHINE HELPER 05/02/2024 4:45 PM ADZING AND BORING MACHINE HELPER Rosa Sofia MD LAB BLOOD ORDERABLES Abigail l Result Performing Organization Address City/[facility]/ZIP Co de Phone Number [address] [address] * Cortisol (05/02/2024 4:21 PM ADZING AND BORING MACHINE HELPER) Cortisol 12.5 4.8 - 19.5 mcg/dl Blood 05/02/2024 4:21 PM ADZING AND BORING MACHINE HELPER 05/02/2024 6:24 PM ADZING AND BORING MACHINE HELPER Amaury Lezama MD LAB BLOOD ORDERABL ES Final Result [facility] [address] [facility] Department [place] [address] * (ABNORMAL) Basic metabolic panel (05/02/2024 4:21 PM ADZING AND BORING MACHINE HELPER) Sodium 136 135 - 145 mmol/L Comment:Testing performed by : [address] [address] Potassium, pl 3.4 3.3 - 4.9 mmol/L ELVI Comment:Testing performed by : [address] [address] Chloride 97 97 - 110 mmol/L ELVI Comment:Testing performed by : [address] [address] CO2 26 22 - 32 mmol/L ELVI Comment:Testing performed by : [address] [address] Anion gap 13 2 - 15 mmol/L ELVI Comment:Testing performed by : [address] [address] BUN 39(H) 6 - 25 mg/dL ELVI Comment:Testing performed by : [address] [address] Creatinine 3.40(H) 0.80 - 1.30 mg/dL ELVI Comment:Testing performed by : [address] [address] Glucose 122 70 - 199 mg/dL ELVI [...] was last revised 2022. Testing performed by: [address] [address] Calcium 8.2(L) 8.5 - 10.3 mg/dL ELVI Comment:Testing performed by : [address] [address] Blood 05/02/2024 4:21 PM ADZING AND BORING MACHINE HELPER 05/02/2024 4:45 PM ADZING AND BORING MACHINE HELPER Rosa Sofia MD LAB BLOOD ORDERABLES Abigail l Result Performing Organization Address [facility]/ZIP Co de Phone Number [place] [id number] [facility] [employer] [place] [address] * (ABNORMAL) Troponin T high-sensitivity 6-hour (05/02/2024 10:58 AM ADZING AND BORING MACHINE HELPER) Trop T hs 89(H) <=22 ng/L Comment: Interpretive Data For further hscTnT resources including the diagnostic algorithm and an aid in interpretation, copy and paste this link: https://nrl.testcatalog.org/show/hsTrop Current Interpretive Data last revised 2020. Testing performed by: [address] [address] Trop T hs pct delta -15 % ELVI Comment:Testing performed by : [address] [address] Trop T hs interp Equivocal ELVI Comment:Testing performed by : [address] [address] Blood 05/02/2024 10:5 8 AM ADZING AND BORING MACHINE HELPER 05/02/2024 11:03 AM ADZING AND BORING MACHINE HELPER Alfred Thompson DO LAB BLOOD ORDERABLES Final Result Performing Organization Address City/[facility]/ZIP Co de Phone Number [facility] [address] Department [place] [address] * Critical Care (05/02/2024 10:19 AM ADZING AND BORING MACHINE HELPER) Narrative Rosa Sofia MD - 05/02/2024 10:19 AM ADZING AND BORING MACHINE HELPER Rosa Sofia MD ? 05/02/2024 ??4:59 PM [...] plan with the patient's team and other medical/sourcing consultant staff. This time was in addition to and separate from care provided by other practitioners on this day of service. ?? us Rosa Sofia MD IN CLINIC/BEDSIDE ORDERAB LES Final Result * (ABNORMAL) Troponin T high-sensitivity 4-hour (05/02/2024 8:13 AM ADZING AND BORING MACHINE HELPER) Trop T hs 90(H) <=22 ng/L Comment: Interpretive Data For further hscTnT resources including the diagnostic algorithm and an aid in interpretation, copy and paste this link: https://nrl.testcatalog.org/show/hsTrop Current Interpretive Data last revised 2020. Testing performed by: [address] [address] Trop T hs pct delta -14 % ELVI Comment:Testing performed by : [address] [address] Trop T hs interp Equivocal ELVI Comment:Testing performed by : [address] [address] Blood 05/02/2024 8:13 AM ADZING AND BORING MACHINE HELPER 05/02/2024 8:18 AM ADZING AND BORING MACHINE HELPER us Alfred Thompson DO LAB BLOOD ORDERABLES Final Result Performing Organization Address [facility] Co de Phone Number [address] [address] * Folate (05/02/2024 7:59 AM ADZING AND BORING MACHINE HELPER) Pathologist [facility] Folic acid 9.4 >=5.0 ng/mL Comment:Testing performed by : [address] [address] Blood 05/02/2024 7:59 AM ADZING AND BORING MACHINE HELPER 05/02/2024 8:18 AM ADZING AND BORING MACHINE HELPER Amaury Lezama MD LAB BLOOD ORDERABL ES Final Result Performing Organization Address [facility] de Phone Number [address] [address] * Vitamin B12 (05/02/2024 7:59 AM ADZING AND BORING MACHINE HELPER) [facility] Vitamin B12 721 230 - 1,250 pg/mL Comment:Testing performed by : [facility], [address] [place] [address]., [address] Blood 05/02/2024 7:59 AM ADZING AND BORING MACHINE HELPER 05/02/2024 8:18 AM ADZING AND BORING MACHINE HELPER Amaury Lezama MD LAB BLOOD ORDERABL ES Final Result Performing Organization Address [facility] Co de Phone Number [address] [address] * Drugs of Abuse Screen, Urine with Reflex Confirmation (05/02/2024 7:51 AM ADZING AND BORING MACHINE HELPER) Pathologist [facility] Amphetamine, ur Not Detected CutOff 500ng/mL Comment: Interpretive Data - Amphetamines: ??Samples containing greater than 500 ng/mL d-methamphetamine ??or other cross-reacting amphetamine compounds are reported as positive. ??Amphetamine immunoassays are subject to significant false positive rates due to cross-reactivity of non-amphetamine drugs. Confirmatory testing required for definitive results. Current Interpretive Data was last reviewed 2022. Testing performed by: [address] [address] Barbiturates, ur Not Detected CutOff 200ng/mL [facility] Comment: Interpretive Data - Barbiturates: ??Samples containing greater than 200 ng/mL secobarbital or other cross-reacting barbiturate compounds are reported as positive. ??False positive and false negative results are possible. Confirmatory testing required for definitive results. Current Interpretive Data was last reviewed 2022. Testing performed by: [address] [address] Benzodiazepines, ur Not Detected CutOff 100ng/mL [facility] Comment: Interpretive Data - Benzodiazepines: ??Samples containing greater than 100 ng/mL nordiazepam or other cross-reacting compounds are reported as positive. False positive and false negative results are possible. Confirmatory testing required for definitive results. Current Interpretive Data was last reviewed 2022. Testing performed by: [address] [address] Cannabinoids, ur Not Detected CutOff 50 ng/mL [facility] Comment: Interpretive Data - Cannabinoids: ??Samples containing greater than 50 ng/mL delta-9 THC -COOH or other cross-reacting compounds are reported as positive. ??False positive and false negative results are possible. ??Confirmatory testing required for definitive results. Current Interpretive Data was last reviewed 2022. Testing performed by: [address] [address] Cocaine, ur Not Detected CutOff 150ng/mL [facility] Comment: Interpretive Data - Cocaine: ??Samples containing greater than 150 ng/mL benzoylecgonine or other cross-reacting compounds are reported as positive. False positive and false negative results are possible. Confirmatory testing required for definitive results. Current Interpretive Data was last reviewed 2022. Testing performed by: [address] [address] Fentanyl, Ur Not Detected Cutoff 1 ng/mL [facility] Comment: Interpretive Data - Fentanyl: ??Samples containing greater than 1 ng/mL fentanyl or other cross-reacting fentanyl compounds are reported as positive. ??False positive and false negative results are possible. Confirmatory testing required for definitive results. Current Interpretive Data was last reviewed 2022. Testing performed by: [facility], [address] [place] [address]., [address] Methadone, ur Not Detected CutOff 300ng/mL [facility] Comment: Interpretive Data - Methadone: ??Samples containing greater than 300 ng/mL d,l-methadone or other cross-reacting compounds are reported as positive. ??False positive and false negative results are possible. Confirmatory testing required for definitive results. Current Interpretive Data was last reviewed 2022. Testing performed by: [facility], [address] [place] [address]., [address] Opiates, ur Not Detected CutOff 300ng/mL [facility] Comment: Interpretive Data - Opiates: ??Samples containing greater than 300 ng/mL morphine or other cross-reacting compounds are reported as positive. ??False positive and false negative results are possible. Confirmatory testing required for definitive results. Current Interpretive Data was last reviewed 2022. Testing performed by: [address] [address] Oxycodone, ur Not Detected CutOff 100ng/mL [facility] Comment: Interpretive Data - Oxycodone: ??Samples containing greater than 100 ng/mL oxycodone or other cross-reacting compounds are reported as ??positive. ??False positive and false negative results are possible. Confirmatory testing required for definitive results. Current Interpretive Data was last reviewed 2022. Testing performed by: [address] [address] Phencyclidine, ur Not Detected CutOff 25 ng/mL [facility] Comment: Interpretive Data - Phencyclidine: ??Samples containing greater than 25 ng/mL phencyclidine or other cross-reacting compounds are reported as positive. ??False positive and false negative results are possible. Confirmatory testing required for definitive results. Current Interpretive Data was last reviewed 2022. Testing performed by: [address] [address] Urine Creatinine 15 mg/dL [facility] Comment: Interpretive Data Urine Creatinine: < 10 mg/dL is extremely dilute = or > 10 but < 20 mg/dL is dilute = or > 20 mg/dL is normal Current Interpretive Data was last revised on 2017. Testing performed by: [address] [address] Urine 05/02/2024 7:51 AM ADZING AND BORING MACHINE HELPER 05/02/2024 8:18 AM ADZING AND BORING MACHINE HELPER Narrative ELVI - 05/02/2024 9:02 AM ADZING AND BORING MACHINE HELPER Drug of Abuse screening is performed by immunoassay for medical purposes only. ??This is not to be used for Pain Management purposes. ??If Detected, confirmation testing will be performed for Amphetamines, Cocaine, Fentanyl, Methadone, Opiates, Oxycodone or Phencyclidine. Amaury Lezama MD LAB URINE ORDERABL ES Final Result ELVI [address] [facility] Department of Laboratories [place], [place] [id number] * (ABNORMAL) Urinalysis reflex to microscopic and culture Urine (05/02/2024 7:51 AM ADZING AND BORING MACHINE HELPER) Color, ur Straw Yellow Comment:Testing performed by : [address] [address] Clarity, ur Clear Clear ELVI Comment:Testing performed by : [address] [address] Specific gravity, ur 1.005 1.003 - 1.030 ELVI Comment:Testing performed by : [address] [address] pH, urine 6.5 ELVI Comment: Interpretive Data ? Urine pH is affected by diet, medications, systemic acid-base disturbances, and renal tubular function. ??pH may affect urinary stone formation. ??For example, urine pH below 6.0 may help reduce the tendency for calcium phosphate stones and pH greater than 6.0 may reduce the tendency for uric acid stone formation. Source: [employer] Current Interpretive Data was last revised on 2017 Testing performed by: [address] [address] Protein, ur ql Trace(A) Negative ELVI Comment:Testing performed by : [address] [address] Glucose, ur ql Negative Negative ELVI SNIDER Comment:Testing performed by : [address], [place]., [address] Ketones, ur Negative Negative ELVI SNIEDR Comment:Testing performed by : [address], [place]., [address] Bilirubin, ur Negative Negative ELVI SNIDER Comment:Testing performed by : [address], [place]., [address] Blood, ur Trace(A) Negative ELVI SNIDER Comment:Testing performed by : [address], [place]., [address] Urobilinogen, ur <2.0 <2.0 mg/dL ELVI SNIDER Comment:Testing performed by : [address], [place]., [address] Nitrite, ur Negative Negative ELVI SNIDER Comment:Testing performed by : [address], [place]., [address] Leukocyte esterase, ur Negative Negative ELVI Comment:Testing performed by : [address], [place]., [address] UA reflex comment Reflex to microscopic UA will be performed. ELVI SNIDER Comment:Testing performed by : [address] [address] Urine 05/02/2024 7:51 AM ADZING AND BORING MACHINE HELPER 05/02/2024 8:18 AM ADZING AND BORING MACHINE HELPER Amaury Lezama MD LAB MICROBIOLOGY - GENERAL ORDERABLES Final Result [facility]VI [address] [facility] Department [place] [address] * (ABNORMAL) Urinalysis, microscopic only (05/02/2024 7:51 AM ADZING AND BORING MACHINE HELPER) WBC, ur 0-5 0 - 5 /HPF Comment:Testing performed by : [address], [place]., [address] RBC, ur 0-2 0 - 2 /HPF ELVI SNIDER Comment:Testing performed by : [address] [address] Bacteria, ur Trace(A) ELVI SNIDER Comment:Testing performed by : [address] [address] Mucous, ur Present(A) ELVI SNIDER Comment:Testing performed by : [address] [address] Culture Reflex Comment Reflex conditions for urine culture (WBC >10) not met. ELVI Comment:Testing performed by : [address] [address] Urine 05/02/2024 7:51 AM [employer]ZING AND BORING MACHINE HELPER 05/02/2024 8:18 AM ADZING AND BORING MACHINE HELPER us Amaury Lezama MD LAB URINE ORDERABL ES Final Result Performing Organization Address [facility] Co de Phone Number ELVI [address] [facility] Department [place] [address] * (ABNORMAL) Troponin T high-sensitivity 2-hour (05/02/2024 6:25 AM ADZING AND BORING MACHINE HELPER) Trop T hs 96(H) <=22 ng/L Comment: Interpretive Data For further hscTnT resources including the diagnostic algorithm and an aid in interpretation, copy and paste this link: https://nrl.testcatalog.org/show/hsTrop Current Interpretive Data last revised 2020. Testing performed by: [address] [address] Trop T hs pct delta -9 % ELVI Comment:Testing performed by : [address] [address] Trop T hs interp Equivocal ELVI Comment:Testing performed by : [address] [address] Blood 05/02/2024 6:25 AM ADZING AND BORING MACHINE HELPER 05/02/2024 6:27 AM ADZING AND BORING MACHINE HELPER us Alfred Thompson DO LAB BLOOD ORDERABLES Final Result Performing Organization Address City/[facility] Co de Phone Number ELVI [address] [place] [address] * Thyroid Function [place] (05/02/2024 6:25 AM ADZING AND BORING MACHINE HELPER) Pathologist [facility] TSH 1.60 0.30 - 4.20 mcIUnit/mL Comment:Testing performed by : [address] [address] Blood 05/02/2024 6:25 AM ADZING AND BORING MACHINE HELPER 05/02/2024 7:23 AM ADZING AND BORING MACHINE HELPER Amaury Lezama MD LAB BLOOD ORDERABL ES Final Result Performing Organization Address [facility] de Phone Number ELVI [address] [place] [address] * (ABNORMAL) Iron profile w/ IBC (05/02/2024 6:25 AM ADZING AND BORING MACHINE HELPER) [facility] Iron 17(L) 50 - 150 mcg/dL Comment:Testing performed by : [address] [address] TIBC 284 250 - 400 mcg/dL ELVI Comment:Testing performed by : [address] [address] Transferrin saturation 6(L) 20 - 50 % ELVI Comment:Testing performed by : [address] [address] Blood 05/02/2024 6:25 AM ADZING AND BORING MACHINE HELPER 05/02/2024 7:23 AM ADZING AND BORING MACHINE HELPER Amaury Lezama MD LAB BLOOD ORDERABL ES Final Result Performing Organization Address [facility] Co de Phone Number AMADOU[address] [place] [address] * CRP (acute phase) (05/02/2024 6:25 AM ADZING AND BORING MACHINE HELPER) [facility] CRP 5.4 <=10.0 mg/L Comment:Testing performed by : [address] [address] Blood 05/02/2024 6:25 AM ADZING AND BORING MACHINE HELPER 05/02/2024 7:23 AM ADZING AND BORING MACHINE HELPER Amaury Lezama MD LAB BLOOD ORDERABL ES Final Result Performing Organization Address City/[facility]/ZIP Co de Phone Number [address] [place] [address] * Ferritin (05/02/2024 6:25 AM ADZING AND BORING MACHINE HELPER) Ferritin 174 30 - 400 ng/mL Comment:Testing performed by : [address] [address] Blood 05/02/2024 6:25 AM ADZING AND BORING MACHINE HELPER 05/02/2024 7:23 AM ADZING AND BORING MACHINE HELPER Result [facility] Amaury Lezama MD LAB BLOOD ORDERABL ES Final Result Performing Organization Address [facility] de Phone Number [address] [place] [address] * (ABNORMAL) Troponin T high-sensitivity series (baseline, 2hr, 4hr, 6hr) (05/02/2024 4:41 AM ADZING AND BORING MACHINE HELPER) Trop T hs 105(H) <=22 ng/L Comment: Interpretive Data For further hscTnT resources including the diagnostic algorithm and an aid in interpretation, copy and paste this link: https://nrl.testcatalog.org/show/hsTrop Current Interpretive Data last revised 2020. Testing performed by: [address] [address] Blood 05/02/2024 4:41 AM ADZING AND BORING MACHINE HELPER 05/02/2024 4:45 AM ADZING AND BORING MACHINE HELPER Alfred Thompson DO LAB BLOOD ORDERABLES Final Result Performing Organization Address [facility] Co de Phone Number [address] [place] [address] * (ABNORMAL) eGFR (05/02/2024 4:41 AM ADZING AND BORING MACHINE HELPER) [facility] eGFR 23(L) >=60 mL/min/1. 73 m2 Comment: [...] was last reviewed 2021. Testing performed by: [facility], [address] [place] [address]., [address] Blood 05/02/2024 4:41 AM ADZING AND BORING MACHINE HELPER 05/02/2024 4:45 AM ADZING AND BORING MACHINE HELPER us Alfred Thompson DO LAB BLOOD ORDERABLES Final Result ELVI [address] [facility] Department [place] [address] * Differential, auto (05/02/2024 4:41 AM ADZING AND BORING MACHINE HELPER) [facility] Neutrophil abs 6.2 1.5 - 6.5 K/cumm Comment:Testing performed by : [facility], [address] [place] [address], [place]., [address] Imm gran abs 0.0 0.0 - 0.1 K/cumm [facility] Comment:Testing performed by : [address], [place]., [address] Lymphocyte abs 1.2 0.8 - 3.3 K/cumm [facility] Comment:Testing performed by : [address], [place]., [address] Monocyte abs 0.6 0.2 - 0.8 K/cumm [facility] Comment:Testing performed by : [address], [place]., [address] Eosinophil abs 0.1 0.0 - 0.5 K/cumm [facility] Comment:Testing performed by : [address] [address] Basophil abs 0.0 0.0 - 0.1 K/cumm [facility] Comment:Testing performed by : [address] [address] Neutrophil pct 76.6 % [facility] Comment: Interpretive Data Percent cell count reference ranges are not reported, since discordance with absolute values may lead to misinterpretation of CBC data. Current Interpretive Data was last revised on 2017. Testing performed by: [address] [address] Imm gran pct 0.4 % [facility] Comment: Interpretive Data Percent cell count reference ranges are not reported, since discordance with absolute values may lead to misinterpretation of CBC data. Current Interpretive Data was last revised on 2017. Testing performed by: [address] [address] Lymphocyte pct 14.2 % [facility] Comment: Interpretive Data Percent cell count reference ranges are not reported, since discordance with absolute values may lead to misinterpretation of CBC data. Current Interpretive Data was last revised on 2017. Testing performed by: [address] [address] Monocyte pct 7.0 % [facility] Comment: Interpretive Data Percent cell count reference ranges are not reported, since discordance with absolute values may lead to misinterpretation of CBC data. Current Interpretive Data was last revised on 2017. Testing performed by: [address] [address] Eosinophil pct 1.4 % ELVI Comment: Interpretive Data Percent cell count reference ranges are not reported, since discordance with absolute values may lead to misinterpretation of CBC data. Current Interpretive Data was last revised on 2017. Testing performed by: [address] [address] Basophil pct 0.4 % ELVI Comment: Interpretive Data Percent cell count reference ranges are not reported, since discordance with absolute values may lead to misinterpretation of CBC data. Current Interpretive Data was last revised on 2017. Testing performed by: [address] [address] Blood 05/02/2024 4:41 AM ADZING AND BORING MACHINE HELPER 05/02/2024 4:45 AM ADZING AND BORING MACHINE HELPER us Alfred Thompson DO LAB BLOOD ORDERABLES Final Result ELVI [address] [facility] Department [place] [address] * (ABNORMAL) Pro B-type natriuretic peptide (05/02/2024 4:41 AM ADZING AND BORING MACHINE HELPER) NT-proBNP 6,485(H) <=300 pg/mL Comment: Interpretive Comments: [...] Last Revised Date: 2018. Testing performed by: [address] [address] Blood 05/02/2024 4:41 AM ADZING AND BORING MACHINE HELPER 05/02/2024 4:45 AM ADZING AND BORING MACHINE HELPER us Alfred Thompson DO LAB BLOOD ORDERABLES Final Result AMADOUUYS [address] [facility] Department [place] [address] * (ABNORMAL) CBC with auto differential (05/02/2024 4:41 AM ADZING AND BORING MACHINE HELPER) [facility] WBC 8.1 3.8 - 9.9 K/cumm Comment:Testing performed by : [address] [address] Hgb 9.4(L) 13.0 - 17.5 g/dL ELVI Comment:Testing performed by : [address] [address] Hct 30.3(L) 38.9 - 50.3 % ELVI Comment:Testing performed by : [address] [address] Plt 322 150 - 400 K/cumm ELVI Comment:Testing performed by : [address] [address] MPV 9.1 9.1 - 12.3 fL ELVI Comment:Testing performed by : [address] [address] RBC 3.77(L) 4.30 - 5.80 M/cumm ELVI Comment:Testing performed by : [address] [address] MCV 80.4(L) 81.3 - 96.4 fL ELVI Comment:Testing performed by : [address] [address] MCH 24.9(L) 27.1 - 33.3 pg ELVI Comment:Testing performed by : [address] [address] MCHC 31.0(L) 32.3 - 35.7 g/dL ELVI Comment:Testing performed by : [address] [address] RDW CV 16.8(H) 11.1 - 14.9 % ELVI Comment:Testing performed by : [address] [address] RDW SD 48.6(H) 35.7 - 48.1 fL ELVI Comment:Testing performed by : [address] [address] NRBC abs 0.00 0.00 - 0.01 K/cumm ELVI Comment:Testing performed by : [address] [address] Blood 05/02/2024 4:41 AM ADZING AND BORING MACHINE HELPER 05/02/2024 4:45 AM ADZING AND BORING MACHINE HELPER us Alfred Thompson DO LAB BLOOD ORDERABLES Final Result Performing Organization Address [facility] Co de Phone Number ELVI [address] [address] * (ABNORMAL) Reticulocyte Count (05/02/2024 4:41 AM ADZING AND BORING MACHINE HELPER) Pathologist [facility] Retics, absolute 0.126(H) 0.020 - 0.087 M/cumm Comment:Testing performed by : [address] [address] Retics 3.3(H) 0.4 - 2.9 % ELVI SNIDER Comment:Testing performed by : [address] [address] Reticulocyte Hgb 20.3(L) 30.5 - 38.0 pg ELVI SNIDER Comment:Testing performed by : [address] [address] Blood 05/02/2024 4:41 AM ADZING AND BORING MACHINE HELPER 05/02/2024 7:23 AM ADZING AND BORING MACHINE HELPER Amaury Lezama MD LAB BLOOD ORDERABL ES Final Result Performing Organization Address [facility] Co de Phone Number AMAD[address] [address] * (ABNORMAL) Comprehensive metabolic panel (05/02/2024 4:41 AM ADZING AND BORING MACHINE HELPER) [facility] Sodium 134(L) 135 - 145 mmol/L Comment:Testing performed by : [address] [address] Potassium, pl 3.3 3.3 - 4.9 mmol/L ELVI SNIDER Comment:Testing performed by : [address] [address] Chloride 98 97 - 110 mmol/L ELVI SNIDER Comment:Testing performed by : [address] [address] CO2 23 22 - 32 mmol/L ELVI SNIDER Comment:Testing performed by : [address] [address] Anion gap 13 2 - 15 mmol/L ELVI Comment:Testing performed by : [address] [address] BUN 38(H) 6 - 25 mg/dL ELVI Comment:Testing performed by : [address] [address] Creatinine 3.30(H) 0.80 - 1.30 mg/dL ELVI Comment:Testing performed by : [address] [address] Glucose 108 70 - 199 mg/dL ELVI [...] was last revised 2022. Testing performed by: [address] [address] Calcium 7.9(L) 8.5 - 10.3 mg/dL ELVI Comment:Testing performed by : [address] [address] Bilirubin, total 0.8 0.1 - 1.2 mg/dL ELVI Comment:Testing performed by : [address] [address] Protein, pl 7.1 6.5 - 8.5 g/dL ELVI Comment:Testing performed by : [address] [address] Albumin 3.2(L) 3.5 - 5.0 g/dL ELVI Comment:Testing performed by : [address] [address] Alk phos 82 40 - 130 Units/L ELVI SNIDER Comment:Testing performed by : [address] [address] ALT 45 7 - 55 Units/L ELVI SNIDER Comment:Testing performed by : [address] [address] AST 34 10 - 50 Units/L ELVI SNIDER Comment:Testing performed by : [address] [address] Blood 05/02/2024 4:41 AM ADZING AND BORING MACHINE HELPER 05/02/2024 4:45 AM ADZING AND BORING MACHINE HELPER us Alfred Thompson DO LAB BLOOD ORDERABLES Final Result ELVI SNIDER [address] [facility] Department [place] [address] * XR Chest 1 Vw Portable (05/02/2024 4:29 AM ADZING AND BORING MACHINE HELPER) Anatomical Region Laterality Modality Body, Chest N/A Computed Radiogr aphy 05/02/2024 4:32 AM ADZING AND BORING MACHINE HELPER Narrative 05/02/2024 4:36 AM ADZING AND BORING MACHINE HELPER EXAM DESCRIPTION: XR CHEST 1 VIEW REASON [...] AM T: ??05/02/2024 4:36 AM Report ID: [id number] Reading Location: ??[id number] Procedure Note Shaggy Hernandez MD - 05/02/2024 [...] signed by Shaggy PHELAN: ZHANE Report ID: [id number] Reading Location: [id number] us Alfred Thompson DO IMG XR PROCEDURES Final Res ult * NM CRITICAL CARE ILL/INJURED PATIENT INIT 30-74 MIN (05/02/2024 4:23 AM ADZING AND BORING MACHINE HELPER) Narrative Alfred Thompson DO - 05/02/2024 4:23 AM ADZING AND BORING MACHINE HELPER Alfred Thompson, DO ? 05/02/2024 ??6:11 AM [...] * ECG 12 lead (05/02/2024 4:22 AM ADZING AND BORING MACHINE HELPER) [facility] Ventricular Rate EKG/Min 87 BPM [facility] Atrial Rate 87 BPM [facility] NM-Interval (MSEC) 180 ms [facility] QRS-Interval (MSEC) 116 ms [facility] QT-Interval (MSEC) 438 ms [facility] QTc 527 ms [facility] P [place] 23 degrees [facility] R [place] -49 degrees [facility] T [place] 70 degrees [facility] Diagnosis Normal sinus rhythm Biatrial enlargement Left axis deviation Possible Anterior infarct (cited on or before 15-JUN-2018) Prolonged QT Abnormal ECG When compared with ECG of 14-APR-2024 08:58, T wave inversion less evident in Lateral leads Confirmed by JOSE ADAMSON M.D. ([id number]) on 05/02/2024 9:50:05 PM [facility] 05/02/2024 4:22 AM ADZING AND BORING MACHINE HELPER 05/02/2024 9:50 PM ADZING AND BORING MACHINE HELPER Alfred Thompson DO ECG ORDERABLES Final Resul t [facility] * (ABNORMAL) eGFR (04/16/2024 8:00 AM ADZING AND BORING MACHINE HELPER) Pathologist [facility] eGFR 24(L) >=60 mL/min/1. 73 m2 Comment: [...] last reviewed 2021. Blood 04/16/2024 8:00 AM ADZING AND BORING MACHINE HELPER 04/16/2024 8:32 AM ADZING AND BORING MACHINE HELPER Elias Fenton MD LAB BLOOD ORDERABLES Fi nal Result Performing Organization Address City/State/[facility] Co mn Phone Number [facility] [address] [facility] Department [place] [address] * Differential, auto (04/16/2024 8:00 AM ADZING AND BORING MACHINE HELPER) Pathologist [facility] Neutrophil abs 2.3 1.5 - 6.5 K/cumm Imm gran abs 0.0 0.0 - 0.1 K/cumm [facility] Lymphocyte abs 1.6 0.8 - 3.3 K/cumm [facility] Monocyte abs 0.5 0.2 - 0.8 K/cumm [facility] Eosinophil abs 0.2 0.0 - 0.5 K/cumm [facility] Basophil abs 0.0 0.0 - 0.1 K/cumm [facility] Neutrophil pct 49.3 % [facility] Comment: Interpretive Data Percent cell count reference ranges are not reported, since discordance with absolute values may lead to misinterpretation of CBC data. Current Interpretive Data was last revised on 2017. Imm gran pct 0.2 % [facility] Comment: Interpretive Data Percent cell count reference ranges are not reported, since discordance with absolute values may lead to misinterpretation of CBC data. Current Interpretive Data was last revised on 2017. Lymphocyte pct 33.8 % [facility] Comment: Interpretive Data Percent cell count reference ranges are not reported, since discordance with absolute values may lead to misinterpretation of CBC data. Current Interpretive Data was last revised on 2017. Monocyte pct 11.4 % [facility] Comment: Interpretive Data Percent cell count reference ranges are not reported, since discordance with absolute values may lead to misinterpretation of CBC data. Current Interpretive Data was last revised on 2017. Eosinophil pct 4.4 % [facility] Comment: Interpretive Data Percent cell count reference ranges are not reported, since discordance with absolute values may lead to misinterpretation of CBC data. Current Interpretive Data was last revised on 2017. Basophil pct 0.9 % [facility] Comment: Interpretive Data Percent cell count reference ranges are not reported, since discordance with absolute values may lead to misinterpretation of CBC data. Current Interpretive Data was last revised on 2017. Blood 04/16/2024 8:00 AM ADZING AND BORING MACHINE HELPER 04/16/2024 8:32 AM ADZING AND BORING MACHINE HELPER us Elias Fenton MD LAB BLOOD ORDERABLES Fi nal Result [facility] [address] [facility] Department [place] [address] * (ABNORMAL) CBC with auto differential (04/16/2024 8:00 AM ADZING AND BORING MACHINE HELPER) Pathologist [facility] WBC 4.6 3.8 - 9.9 K/cumm Hgb 12.1(L) 13.0 - 17.5 g/dL [facility] Hct 38.6(L) 38.9 - 50.3 % [facility] Plt 283 150 - 400 K/cumm [facility] MPV 9.5 9.1 - 12.3 fL [facility] RBC 4.73 4.30 - 5.80 M/cumm [facility] MCV 81.6 81.3 - 96.4 fL [facility] MCH 25.6(L) 27.1 - 33.3 pg [facility] MCHC 31.3(L) 32.3 - 35.7 g/dL [facility] RDW CV 17.0(H) 11.1 - 14.9 % [facility] RDW SD 50.3(H) 35.7 - 48.1 fL [facility] NRBC abs 0.00 0.00 - 0.01 K/cumm [facility] Blood 04/16/2024 8:00 AM ADZING AND BORING MACHINE HELPER 04/16/2024 8:32 AM ADZING AND BORING MACHINE HELPER Elias Fenton MD LAB BLOOD ORDERABLES Ed ited Result - Final Performing Organization Address City/[facility] Co de Phone Number ELVI [address] [employer] [place] [address] * (ABNORMAL) Manual Differential (04/16/2024 8:00 AM ADZING AND BORING MACHINE HELPER) Differential Auto RBC morphology Present(A) [facility] Polychromasia 3-7/HPF(A) [facility] Poikilocytosis Slight(A) [facility] Elliptocytes 3-7/HPF(A) [facility] Target cells 3-7/HPF(A) [facility] Platelet estimate Automated Count Confirmed [facility] Blood 04/16/2024 8:00 AM ADZING AND BORING MACHINE HELPER 04/16/2024 8:32 AM ADZING AND BORING MACHINE HELPER Elias Fenton MD LAB BLOOD ORDERABLES Fi nal Result Performing Organization Address City/[facility]/ZIP Co de Phone Number ELVI [address] [employer] [place] [address] * Magnesium (04/16/2024 8:00 AM ADZING AND BORING MACHINE HELPER) Pathologist [facility] Magnesium 2.3 1.4 - 2.5 mg/dL Blood 04/16/2024 8:00 AM ADZING AND BORING MACHINE HELPER 04/16/2024 8:32 AM ADZING AND BORING MACHINE HELPER Elias Fenton MD LAB BLOOD ORDERABLES Fi nal Result Performing Organization Address City/[facility]/ZIP Co de Phone Number [place] [address] [facility] [place] [address] * (ABNORMAL) Hepatic function panel (04/16/2024 8:00 AM ADZING AND BORING MACHINE HELPER) [facility] Bilirubin, total 0.4 0.1 - 1.2 mg/dL Bilirubin, direct <0.2 0.1 - 0.3 mg/dL [facility] Protein, pl 7.4 6.5 - 8.5 g/dL [facility] Albumin 3.2(L) 3.5 - 5.0 g/dL [facility] Alk phos 72 40 - 130 Units/L [facility] ALT 31 7 - 55 Units/L [facility] AST 28 10 - 50 Units/L [facility] Blood 04/16/2024 8:00 AM ADZING AND BORING MACHINE HELPER 04/16/2024 8:32 AM ADZING AND BORING MACHINE HELPER Result [facility] Elias Fenton MD LAB BLOOD ORDERABLES Fi nal Result Performing Organization Address City/[facility]/ZIP Co de Phone Number [address] [place] [address] * Lipid panel (04/16/2024 8:00 AM ADZING AND BORING MACHINE HELPER) [facility] Cholesterol 167 30 - 199 mg/dL Comment: [...] ratio 3 ELVI Blood 04/16/2024 8:00 AM ADZING AND BORING MACHINE HELPER 04/16/2024 8:32 AM ADZING AND BORING MACHINE HELPER Elias Fenton MD LAB BLOOD ORDERABLES Fi nal Result Performing Organization Address [facility] Co de Phone Number ELVI [address] [place] [address] * (ABNORMAL) Basic metabolic panel (04/16/2024 8:00 AM ADZING AND BORING MACHINE HELPER) Pathologist [facility] Sodium 136 135 - 145 mmol/L Potassium, pl 4.2 3.3 - 4.9 mmol/L [facility] Chloride 103 97 - 110 mmol/L [facility] CO2 23 22 - 32 mmol/L [facility] Anion gap 10 2 - 15 mmol/L [facility] BUN 30(H) 6 - 25 mg/dL [facility] Creatinine 3.26(H) 0.80 - 1.30 mg/dL [facility] Glucose 105 70 - 199 mg/dL [facility] Comment: Interpretive Data Fasting glucose >/= [...] 2022. Calcium 9.0 8.5 - 10.3 mg/dL [facility] Blood 04/16/2024 8:00 AM ADZING AND BORING MACHINE HELPER 04/16/2024 8:32 AM ADZING AND BORING MACHINE HELPER Elias Fenton MD LAB BLOOD ORDERABLES Fi nal Result Performing Organization Address City/[facility] Co de Phone Number ELVI [address] [place] [address] [place] [address] * TRANSTHORACIC ECHO (TTE) COMPLETE W DOPPLER/CF WO CONTRAST (04/15/2024 3:37 PM ADZING AND BORING MACHINE HELPER) Anatomical Region Laterality Modality Ultrasound 04/15/2024 3:14 PM ADZING AND BORING MACHINE HELPER Narrative 04/15/2024 6:57 PM ADZING AND BORING MACHINE HELPER ? Adult Echocardiogram + ----- + :Name: SHARRON HEADLEY Zaria, IIIStudy Date: 04/15/2024 ?Status: MHB ? : : ? Patient Location: [facility] 2 NE^[id number]^MHBHeit: 72 in ? : : ? Weight: [...] Date: 04/15/2024Status: DEEPA : : Patient Location: [facility] 2NE^[id number]^MHBHeight: 72 in : : : 200 lbBP: [...] Result * (ABNORMAL) eGFR (04/15/2024 12:45 PM ADZING AND BORING MACHINE HELPER) eGFR 24(L) >=60 mL/min/1. 73 m2 Comment: [...] reviewed 2021. Blood 04/15/2024 12:4 5 PM ADZING AND BORING MACHINE HELPER 04/15/2024 1:00 PM ADZING AND BORING MACHINE HELPER Elias Fenton MD LAB BLOOD ORDERABLES Fi nal Result Performing Organization Address [facility] de Phone Number [address] [address] * Magnesium (04/15/2024 12:45 PM ADZING AND BORING MACHINE HELPER) Magnesium 2.4 1.4 - 2.5 mg/dL Blood 04/15/2024 12:4 5 PM ADZING AND BORING MACHINE HELPER 04/15/2024 1:00 PM ADZING AND BORING MACHINE HELPER Elias Fenton MD LAB BLOOD ORDERABLES Fi nal Result Performing Organization Address [facility] de Phone Number [address] [place] [address] * (ABNORMAL) Basic metabolic panel (04/15/2024 12:45 PM ADZING AND BORING MACHINE HELPER) Sodium 134(L) 135 - 145 mmol/L Potassium, pl 3.9 3.3 - 4.9 mmol/L [facility] Chloride 102 97 - 110 mmol/L [facility] CO2 23 22 - 32 mmol/L [facility] Anion gap 9 2 - 15 mmol/L [facility] BUN 30(H) 6 - 25 mg/dL [facility] Creatinine 3.20(H) 0.80 - 1.30 mg/dL [facility] Glucose 114 70 - 199 mg/dL [facility] Comment: Interpretive Data Fasting glucose >/= [...] 2022. Calcium 8.7 8.5 - 10.3 mg/dL [facility] Blood 04/15/2024 12:4 5 PM [employer]ZING AND BORING MACHINE HELPER 04/15/2024 1:00 PM ADZING AND BORING MACHINE HELPER us Elias Fenton MD LAB BLOOD ORDERABLES Fi nal Result [facility] [address] [facility] Department [place] [address] * (ABNORMAL) eGFR (04/15/2024 2:50 AM ADZING AND BORING MACHINE HELPER) [facility] eGFR 24(L) >=60 mL/min/1. 73 m2 Comment: [...] last reviewed 2021. Blood 04/15/2024 2:50 AM ADZING AND BORING MACHINE HELPER 04/15/2024 3:31 AM ADZING AND BORING MACHINE HELPER Darryn Childress MD LAB BLOOD ORDERABLES Final Result [facility] [address] [facility] Department [place] [address] * Differential, auto (04/15/2024 2:50 AM ADZING AND BORING MACHINE HELPER) Pathologist [facility] [place] Neutrophil abs 3.7 1.5 - 6.5 K/cumm Imm gran abs 0.0 0.0 - 0.1 K/cumm [facility] Lymphocyte abs 1.3 0.8 - 3.3 K/cumm [facility] Monocyte abs 0.6 0.2 - 0.8 K/cumm [facility] Eosinophil abs 0.1 0.0 - 0.5 K/cumm [facility] Basophil abs 0.0 0.0 - 0.1 K/cumm [facility] Neutrophil pct 63.6 % [facility] Comment: Interpretive Data Percent cell count reference ranges are not reported, since discordance with absolute values may lead to misinterpretation of CBC data. Current Interpretive Data was last revised on 2017. Imm gran pct 0.3 % [facility] Comment: Interpretive Data Percent cell count reference ranges are not reported, since discordance with absolute values may lead to misinterpretation of CBC data. Current Interpretive Data was last revised on 2017. Lymphocyte pct 22.9 % [facility] Comment: Interpretive Data Percent cell count reference ranges are not reported, since discordance with absolute values may lead to misinterpretation of CBC data. Current Interpretive Data was last revised on 2017. Monocyte pct 10.4 % [facility] Comment: Interpretive Data Percent cell count reference ranges are not reported, since discordance with absolute values may lead to misinterpretation of CBC data. Current Interpretive Data was last revised on 2017. Eosinophil pct 2.1 % [facility] Comment: Interpretive Data Percent cell count reference ranges are not reported, since discordance with absolute values may lead to misinterpretation of CBC data. Current Interpretive Data was last revised on 2017. Basophil pct 0.7 % [facility] Comment: Interpretive Data Percent cell count reference ranges are not reported, since discordance with absolute values may lead to misinterpretation of CBC data. Current Interpretive Data was last revised on 2017. Blood 04/15/2024 2:50 AM ADZING AND BORING MACHINE HELPER 04/15/2024 3:31 AM ADZING AND BORING MACHINE HELPER Darryn Childress MD LAB BLOOD ORDERABLES Final Result [facility] [address] [facility] Department of Laboratories [place], [place] [id number] * (ABNORMAL) CBC with auto differential (04/15/2024 2:50 AM ADZING AND BORING MACHINE HELPER) Pathologist [facility] [place] WBC 5.8 3.8 - 9.9 K/cumm Hgb 10.6(L) 13.0 - 17.5 g/dL [facility] Hct 33.2(L) 38.9 - 50.3 % [facility] Plt 251 150 - 400 K/cumm [facility] MPV 9.7 9.1 - 12.3 fL [facility] RBC 4.15(L) 4.30 - 5.80 M/cumm [facility] MCV 80.0(L) 81.3 - 96.4 fL [facility] MCH 25.5(L) 27.1 - 33.3 pg [facility] MCHC 31.9(L) 32.3 - 35.7 g/dL [facility] RDW CV 17.2(H) 11.1 - 14.9 % [facility] RDW SD 50.2(H) 35.7 - 48.1 fL [facility] NRBC abs 0.00 0.00 - 0.01 K/cumm [facility] Blood 04/15/2024 2:50 AM ADZING AND BORING MACHINE HELPER 04/15/2024 3:31 AM ADZING AND BORING MACHINE HELPER Darryn Childress MD LAB BLOOD ORDERABLES Final Result Performing Organization Address City/[facility]/ZIP Co de Phone Number [address] [employer] [place] [address] * Magnesium (04/15/2024 2:50 AM ADZING AND BORING MACHINE HELPER) [facility] Magnesium 1.8 1.4 - 2.5 mg/dL Blood 04/15/2024 2:50 AM ADZING AND BORING MACHINE HELPER 04/15/2024 3:31 AM ADZING AND BORING MACHINE HELPER Elias Fenton MD LAB BLOOD ORDERABLES Fi nal Result Performing Organization Address [facility] Co de Phone Number [address] [place] [address] * (ABNORMAL) Comprehensive metabolic panel (04/15/2024 2:50 AM ADZING AND BORING MACHINE HELPER) [facility] Sodium 132(L) 135 - 145 mmol/L Potassium, pl 3.9 3.3 - 4.9 mmol/L [facility] Chloride 102 97 - 110 mmol/L [facility] CO2 22 22 - 32 mmol/L [facility] Anion gap 8 2 - 15 mmol/L [facility] BUN 32(H) 6 - 25 mg/dL [facility] Creatinine 3.27(H) 0.80 - 1.30 mg/dL [facility] Glucose 106 70 - 199 mg/dL [facility] Comment: Interpretive Data Fasting glucose >/= [...] 2022. Calcium 7.9(L) 8.5 - 10.3 mg/dL [facility] Bilirubin, total 0.6 0.1 - 1.2 mg/dL [facility] Protein, pl 6.4(L) 6.5 - 8.5 g/dL [facility] Albumin 3.0(L) 3.5 - 5.0 g/dL [facility] Alk phos 71 40 - 130 Units/L [facility] ALT 33 7 - 55 Units/L [facility] AST 30 10 - 50 Units/L [facility] Blood 04/15/2024 2:50 AM ADZING AND BORING MACHINE HELPER 04/15/2024 3:31 AM ADZING AND BORING MACHINE HELPER Darryn Childress MD LAB BLOOD ORDERABLES Final Result Performing Organization Address [facility] Co de Phone Number [address] [place] [place] [address] * POCT glucose (04/14/2024 4:29 PM ADZING AND BORING MACHINE HELPER) [facility] Glucose, POC 118 70 - 199 mg/dL Blood 04/14/2024 4:29 PM ADZING AND BORING MACHINE HELPER 04/14/2024 4:29 PM ADZING AND BORING MACHINE HELPER us Darryn Childress MD LAB POCT ORDERABLES - DEVICE Final Result Performing Organization Address [facility] Co de Phone Number [address] [place] [address] * (ABNORMAL) Troponin T high-sensitivity 6-hour (04/14/2024 3:49 PM ADZING AND BORING MACHINE HELPER) Trop T hs 58(H) <=22 ng/L Comment: Interpretive Data For further hscTnT resources including the diagnostic algorithm and an aid in interpretation, copy and paste this link: https://nrl.testcatalog.org/show/hsTrop Current Interpretive Data last revised 2020. Trop T hs delta 4 ng/L [facility] Trop T hs interp Insignificant [facility] Blood 04/14/2024 3:49 PM ADZING AND BORING MACHINE HELPER 04/14/2024 3:53 PM ADZING AND BORING MACHINE HELPER us Simon Vera MD LAB BLOOD ORDERABLE S Final Result [facility] [address] [facility] Department [place] [address] * NM Pulmonary Perfusion Imaging (04/14/2024 2:28 PM ADZING AND BORING MACHINE HELPER) Anatomical Region Laterality Modality Body N/A Nuclear Medicine 04/14/2024 2:44 PM ADZING AND BORING MACHINE HELPER Narrative 04/14/2024 2:44 PM ADZING AND BORING MACHINE HELPER EXAM DESCRIPTION: ?? NM PULMONARY PERFUSION IMAGING [...] D: ??04/14/2024 2:44 PM T: Report ID: [id number] Reading Location: ??[id number] Procedure Note Jaskaran Tobin Jr., MD - [...] by Jaskaran Tobin M.D. T: Report ID: [id number] Reading Location: [id number] Simon Vera MD [facility] PROC[facility] F inal Result * (ABNORMAL) Troponin T high-sensitivity 2-hour (04/14/2024 11:32 AM ADZING AND BORING MACHINE HELPER) Trop T hs 58(H) <=22 ng/L Comment: Interpretive Data For further hscTnT resources including the diagnostic algorithm and an aid in interpretation, copy and paste this link: https://nrl.testcatalog.org/show/hsTrop Current Interpretive Data last revised 2020. Trop T hs delta 4 ng/L [facility] SN[facility]ER Trop T hs interp Insignificant [facility] SN[facility]ER Blood 04/14/2024 11:3 2 AM ADZING AND BORING MACHINE HELPER 04/14/2024 11:34 AM ADZING AND BORING MACHINE HELPER us Simon Vera MD LAB BLOOD ORDERABLE S Final Result [facility] SNID[facility] Department [place] [address] * (ABNORMAL) Troponin T high-sensitivity series (baseline, 2hr, 4hr, 6hr) (04/14/2024 9:23 AM ADZING AND BORING MACHINE HELPER) Trop T hs 54(H) <=22 ng/L Comment: Interpretive Data For further hscTnT resources including the diagnostic algorithm and an aid in interpretation, copy and paste this link: https://nrl.testcatalog.org/show/hsTrop Current Interpretive Data last revised 2020. Blood 04/14/2024 9:23 AM ADZING AND BORING MACHINE HELPER 04/14/2024 9:26 AM ADZING AND BORING MACHINE HELPER us Simon Vera MD LAB BLOOD ORDERABLE S Final Result [facility] [address] [facility] Department [place] [address] * (ABNORMAL) eGFR (04/14/2024 9:23 AM ADZING AND BORING MACHINE HELPER) eGFR 22(L) >=60 mL/min/1. 73 m2 Comment: [...] last reviewed 2021. Blood 04/14/2024 9:23 AM ADZING AND BORING MACHINE HELPER 04/14/2024 9:26 AM ADZING AND BORING MACHINE HELPER us Simon Vera MD LAB BLOOD ORDERABLE S Final Result [facility] [address] [facility] Department [place] [address] * Differential, auto (04/14/2024 9:23 AM ADZING AND BORING MACHINE HELPER) Neutrophil abs 3.9 1.5 - 6.5 K/cumm Imm gran abs 0.0 0.0 - 0.1 K/cumm [facility] Lymphocyte abs 1.0 0.8 - 3.3 K/cumm [facility] Monocyte abs 0.5 0.2 - 0.8 K/cumm [facility] Eosinophil abs 0.0 0.0 - 0.5 K/cumm [facility] Basophil abs 0.0 0.0 - 0.1 K/cumm [facility] Neutrophil pct 70.9 % [facility] Comment: Interpretive Data Percent cell count reference ranges are not reported, since discordance with absolute values may lead to misinterpretation of CBC data. Current Interpretive Data was last revised on 2017. Imm gran pct 0.4 % [facility] Comment: Interpretive Data Percent cell count reference ranges are not reported, since discordance with absolute values may lead to misinterpretation of CBC data. Current Interpretive Data was last revised on 2017. Lymphocyte pct 18.4 % [facility] Comment: Interpretive Data Percent cell count reference ranges are not reported, since discordance with absolute values may lead to misinterpretation of CBC data. Current Interpretive Data was last revised on 2017. Monocyte pct 8.9 % [facility] Comment: Interpretive Data Percent cell count reference ranges are not reported, since discordance with absolute values may lead to misinterpretation of CBC data. Current Interpretive Data was last revised on 2017. Eosinophil pct 0.7 % [facility] Comment: Interpretive Data Percent cell count reference ranges are not reported, since discordance with absolute values may lead to misinterpretation of CBC data. Current Interpretive Data was last revised on 2017. Basophil pct 0.7 % [facility] Comment: Interpretive Data Percent cell count reference ranges are not reported, since discordance with absolute values may lead to misinterpretation of CBC data. Current Interpretive Data was last revised on 2017. Blood 04/14/2024 9:23 AM ADZING AND BORING MACHINE HELPER 04/14/2024 9:26 AM ADZING AND BORING MACHINE HELPER us Simon Vera MD LAB BLOOD ORDERABLE S Final Result Performing Organization Address City/State/ZIP Co mn Phone Number [facility] [address] [facility] Department [place] [address] * (ABNORMAL) Pro B-type natriuretic peptide (04/14/2024 9:23 AM ADZING AND BORING MACHINE HELPER) NT-proBNP 6,724(H) <=300 pg/mL Comment: Interpretive Comments: [...] Revised Date: 2018. Blood 04/14/2024 9:23 AM ADZING AND BORING MACHINE HELPER 04/14/2024 9:26 AM ADZING AND BORING MACHINE HELPER us Simon Vera MD LAB BLOOD ORDERABLE S Final Result [facility] [address] [facility] Department [place] [address] * (ABNORMAL) CBC with auto differential (04/14/2024 9:23 AM ADZING AND BORING MACHINE HELPER) WBC 5.5 3.8 - 9.9 K/cumm Hgb 12.9(L) 13.0 - 17.5 g/dL [facility] Hct 41.6 38.9 - 50.3 % [facility] Plt 240 150 - 400 K/cumm [facility] MPV 9.9 9.1 - 12.3 fL [facility] RBC 5.09 4.30 - 5.80 M/cumm [facility] MCV 81.7 81.3 - 96.4 fL [facility] MCH 25.3(L) 27.1 - 33.3 pg [facility] MCHC 31.0(L) 32.3 - 35.7 g/dL [facility] RDW CV 17.4(H) 11.1 - 14.9 % [facility] RDW SD 51.0(H) 35.7 - 48.1 fL [facility] NRBC abs 0.00 0.00 - 0.01 K/cumm [facility] Blood 04/14/2024 9:23 AM ADZING AND BORING MACHINE HELPER 04/14/2024 9:26 AM ADZING AND BORING MACHINE HELPER us Simon Vera MD LAB BLOOD ORDERABLE S Final Result [facility] [address] [facility] Department [place] [address] * (ABNORMAL) Comprehensive metabolic panel (04/14/2024 9:23 AM ADZING AND BORING MACHINE HELPER) Sodium 132(L) 135 - 145 mmol/L Potassium, pl 4.6 3.3 - 4.9 mmol/L [facility] Comment:Hemolyzed; Potassium value may be falsely elevated by as much as 1.0 mmol/L. Suggest redraw and reanalysis. Chloride 101 97 - 110 mmol/L [facility] CO2 17(L) 22 - 32 mmol/L [facility] Anion gap 14 2 - 15 mmol/L [facility] BUN 30(H) 6 - 25 mg/dL [facility] Creatinine 3.44(H) 0.80 - 1.30 mg/dL [facility] Glucose 111 70 - 199 mg/dL [facility] Comment: Interpretive Data Fasting glucose >/= [...] 2022. Calcium 9.0 8.5 - 10.3 mg/dL [facility] Bilirubin, total 0.9 0.1 - 1.2 mg/dL [facility] Protein, pl 7.7 6.5 - 8.5 g/dL [facility] Albumin 3.4(L) 3.5 - 5.0 g/dL [facility] Alk phos 80 40 - 130 Units/L [facility] ALT 47 7 - 55 Units/L [facility] AST 58(H) 10 - 50 Units/L [facility] Comment:Hemolyzed; result ma y be falsely elevated Blood 04/14/2024 9:23 AM ADZING AND BORING MACHINE HELPER 04/14/2024 9:26 AM ADZING AND BORING MACHINE HELPER us Simon Vera MD LAB BLOOD ORDERABLE S Final Result [facility] [address] [facility] Department [place] [address] * XR Chest 1 Vw Portable (if patient condition/safety warrant portable) (04/14/2024 9:20 AM ADZING AND BORING MACHINE HELPER) Anatomical Region Laterality Modality Body, Chest N/A Computed Radiogr aphy 04/14/2024 9:23 AM ADZING AND BORING MACHINE HELPER Narrative 04/14/2024 9:25 AM ADZING AND BORING MACHINE HELPER EXAM DESCRIPTION: XR CHEST 1 VIEW REASON [...] D: ??04/14/2024 9:25 AM T: Report ID: [id number] Reading Location: ??[id number] Procedure Note Toni Morgan MD - 04/14/2024 [...] Toni Morgan M.D. MM T: Report ID: [id number] Reading Location: [place] [address] Simon Vera MD IMG XR PROCEDURES F inal Result * (ABNORMAL) Influenza A/B, RSV, and COVID-19 PCR Nasopharyngeal (04/14/2024 9:10 AM ADZING AND BORING MACHINE HELPER) COVID-19 RNA Negative Negative Influenza A RNA Negative Negative [facility] Influenza B RNA Negative Negative [facility] RSV RNA Positive(A) Negative [facility] Comment: Interpretive data: Testing performed by [facility]. This test is performed using the [employer] Xpert Xpress CoV-2/Flu/RSV plus assay. This is a multiplex, real-time reverse transcriptase PCR assay intended for the qualitative detection of nucleic acid from SARS-CoV-2, influenza A, influenza B, and respiratory syncytial virus. This assay has been cleared by the [place] Food and Drug administration. The performance characteristics have been verified by the [facility]. ??Results must be considered in the clinical context, and a negative result does not rule out infection. Interpretive Data last revised 2023 Nasopharyngeal 04/14/2024 9: 10 AM ADZING AND BORING MACHINE HELPER 04/14/2024 9:26 AM ADZING AND BORING MACHINE HELPER Narrative [facility] - 04/14/2024 10:33 AM ADZING AND BORING MACHINE HELPER Is the Patient experiencing symptoms consistent with COVID?->Yes Simon Vera MD LAB MICROBIOLOGY - GENERAL ORDERABLES Final Result Performing Organization Address City/[facility]/ZIP Co de Phone Number [facility] [address] [facility] Department [place] [address] * ECG 12 lead (04/14/2024 8:58 AM ADZING AND BORING MACHINE HELPER) Ventricular Rate EKG/Min 107 BPM [facility] Atrial Rate 107 BPM [facility] NM-Interval (MSEC) 170 ms [facility] QRS-Interval (MSEC) 102 ms [facility] QT-Interval (MSEC) 382 ms [facility] QTc 509 ms [facility] P [place] 37 degrees [facility] R [place] -73 degrees [facility] T [place] 86 degrees [facility] Diagnosis Sinus tachycardia Biatrial enlargement Left axis deviation 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 ([id number]) on 04/15/2024 3:10:50 AM [facility] 04/14/2024 8:58 AM ADZING AND BORING MACHINE HELPER 04/15/2024 3:10 AM ADZING AND BORING MACHINE HELPER us Simonethan Vera MD ECG ORDERABLES Fin al Result Performing Organization Address City/[facility] Co de Phone Number [facility] from Last 3 Months Advance Directives For more information, please contact: [phone] * Full Code (Latest Code Status on [...] 4:54 AM 11/21/2023 7:57 PM Care Teams Lab Support Technician Relationship Specialty Start Date End Date Vicente Dickens MD [address] [place] [id number] PCP - General Family Practice 12/19/21 Arley Orona MD [address] [facility] [address] [place] [address] [place] [phone] Consulting Physician Nephrology 05/09/24
--- OUTSIDE RECORDS SUMMARY | 2024-06-29 20:57 | XMS_ITS | Patient Health Summary ---
Author Organization [facility] Address [address] [facility] [place] [address] Care Team Providers Care Ios Architect Name Role Phone Ran Arias MD Primary Care Provider [phone] Note from [facility],non-owned Affiliates and Associated Physician Practices is amultiple site organization consisting of ambulatory clinics and hospital sitesin [place], [place], [place] and [place]. This disclosure is being madepursuant to the Care Everywhere program and may not contain all information available regarding this patient. Last updated 18.[facility] Allergies No known active allergies Medications * [...] Ionized 1.14 mmol/L 12/12/2020 12:33 AM CDT [facility] pH 7.40 7.35 - 7.45 pH 12/12/2020 12:33 AM CDT [facility] Ionized Calcium pH Adjusted 1.14(L) 1.19 - 1.34 mmol/L 12/12/2020 12:33 AM CDT [facility] Blood WHOLE BLOOD SPECIMEN / Unknown Venipuncture / Unknown 12/12/2020 12:21 AM CDT 12/12/2020 12:31 AM CDT Ying Soto MD LAB - CHEMISTRY ORDERABLES [facility] [address] [place] [address], [facility] [phone] * (ABNORMAL) CBC W AUTO DIFFERENTIAL (12/12/2020 12:21 AM CDT) Only the most recent of3 resultswithin the time period is included. WBC 11.7(H) 3.5 - 10.5 10? 3 /uL 12/12/2020 12:38 AM [facility] RBC 4.14(L) 4.30 - 5.70 10? 6 /uL 12/12/2020 12:38 AM [facility] Hemoglobin 12.1 12.0 - 17.6 g/dL 12/12/2020 12:38 AM [facility] Hematocrit 36.4 35.2 - 51.7 % 12/12/2020 12:38 AM [facility] MCV 87.9 80.7 - 98.3 fL 12/12/2020 12:38 AM [facility] MCH 29.2 26.7 - 34.0 pg 12/12/2020 12:38 AM [facility] MCHC 33.2 30.8 - 35.9 g/dL 12/12/2020 12:38 AM [facility] Platelet Count 211 150 - 400 10? 3 /uL 12/12/2020 12:38 AM [facility] RDW-SD 42.7 36.0 - 50.0 fL 12/12/2020 12:38 AM [facility] RDW-CV 13.2 11.2 - 14.8 % 12/12/2020 12:38 AM [facility] MPV 9.8 9.4 - 12.9 fL 12/12/2020 12:38 AM [facility] nRBC Absolute 0.00 0 10? 3 /uL 12/12/2020 12:38 AM [facility] nRBC Auto 0.0 0 /100 WBC 12/12/2020 12:38 AM [facility] Neutrophils % 78.1(H) 35.0 - 70.0 % 12/12/2020 12:38 AM [facility] Lymphocytes % 12.8(L) 20.0 - 43.0 % 12/12/2020 12:38 AM [facility] Monocytes % 8.3 5.0 - 13.0 % 12/12/2020 12:38 AM [facility] Eosinophils % 0.2 0.0 - 6.0 % 12/12/2020 12:38 AM [facility] Basophil % 0.2 0.0 - 2.0 % 12/12/2020 12:38 AM [facility] Neutrophils Absolute 9.1(H) 1.6 - 7.0 10? 3 /uL 12/12/2020 12:38 AM [facility] Lymphocyte Absolute 1.5 1.1 - 3.9 10? 3 /uL 12/12/2020 12:38 AM [facility] Monocytes Absolute 0.97 0.26 - 1.07 10? 3 /uL 12/12/2020 12:38 AM [facility] Eosinophils Absolute 0.02 0.00 - 0.47 10? 3 /uL 12/12/2020 12:38 AM [facility] Basophils Absolute 0.02 0.00 - 0.08 10? 3 /uL 12/12/2020 12:38 AM [facility] Immature Granulocytes % 0.4 0.0 - 1.0 % 12/12/2020 12:38 AM [facility] Immature Granulocytes Absolute 0.05 12/12/2020 12:38 AM [facility] Blood BLOOD SPECIMEN / Unknown Venipuncture / Unknown 12/12/2020 12:21 AM CDT 12/12/2020 12:33 AM T Ying Soto MD LAB - HEMATOLOG Y ORDERABLES Performing Organization Address City/State/[facility] Co de Phone Number [facility] [address] [place] [phone], [facility] [phone] * (ABNORMAL) BASIC METABOLIC PANEL (CALCIUM TOTAL) (12/12/2020 12:21 AM CDT) Only the most recent of8 resultswithin the time period is included. BUN 10 7 - 26 mg/dL 12/12/2020 1:01 AM [facility] Creatinine 1.31(H) 0.71 - 1.16 mg/dL 12/12/2020 1:01 AM [facility] Sodium 137 136 - 145 mmol/L 12/12/2020 1:01 AM [facility] Potassium 3.8 3.5 - 4.5 mmol/L 12/12/2020 1:01 AM [facility] Chloride 105 98 - 107 mmol/L 12/12/2020 1:01 AM [facility] CO2 27 22 - 29 mmol/L 12/12/2020 1:01 AM [facility] Glucose 117(H) 70 - 115 mg/dL 12/12/2020 1:01 AM [facility] Calcium 8.7 8.4 - 10.2 mg/dL 12/12/2020 1:01 AM [facility] Anion Gap 9 8 - 18 12/12/2020 1:01 AM [facility] BUN/Creatinine Ratio 8 7 - 23 12/12/2020 1:01 AM [facility] Osmolality Calculated 284 270 - 300 mOsm/kg 12/12/2020 1:01 AM [facility] eGFR by CKD-EPI 70(L) >=90 mL/min/1.7 3 m2 12/12/2020 1:01 AM [facility] Blood BLOOD SPECIMEN / Unknown Venipuncture / Unknown 12/12/2020 12:21 AM CDT 12/12/2020 12:33 AM CDT Ying Soto MD LAB - CHEMISTRY ORDERABLES [facility] [address] [place] [address], [facility] [phone] * (ABNORMAL) PHOSPHORUS BLOOD (12/12/2020 12:21 AM CDT) Only the most recent of2 resultswithin the time period is included. Phosphorus 2.4(L) 2.8 - 5.1 mg/dL 12/12/2020 1:01 AM CDT [facility] Blood BLOOD SPECIMEN / Unknown Venipuncture / Unknown 12/12/2020 12:21 AM CDT 12/12/2020 12:33 AM CDT Ying Soto MD LAB - CHEMISTRY ORDERABLES [address] [address], [place] [phone] * MAGNESIUM BLOOD (12/12/2020 12:21 AM CDT) Only the most recent of2 resultswithin the time period is included. Magnesium 1.9 1.6 - 2.6 mg/dL 12/12/2020 1:01 AM CDT [facility] Blood BLOOD SPECIMEN / Unknown Venipuncture / Unknown 12/12/2020 12:21 AM CDT 12/12/2020 12:33 AM CDT Ying Soto MD LAB - CHEMISTRY ORDERABLES Performing Organization Address City/[facility]/ZIP Co de Phone Number [address] [address], [place] [phone] * OSMOLALITY BLOOD (12/11/2020 6:35 PM CDT) Only the most recent of6 resultswithin the time period is included. Osmolality 289 270 - 300 mOsm/kg 12/11/2020 8:15 PM CDT [facility] Blood BLOOD SPECIMEN / Unknown Venipuncture / Unknown 12/11/2020 6:35 PM CDT 12/11/2020 6:44 PM CDT Ying Soto MD LAB - CHEMISTRY ORDERABLES [address] [address] [phone] * XR SHOULDER LEFT 2VW OR MORE (12/10/2020 5:03 PM CDT) Anatomical Region Laterality Modality Upper Extremity Radiographic Maria Teresa ging 12/10/2020 4:46 PM CDT Impressions 12/11/2020 12:56 PM CDT IMPRESSION: No acute fracture or dislocation identified. Dictated by Esthela Leary MD (limited radiology technician). Dr. BECCA Barahona have personally reviewed and [...] dislocation identified. Dictated by Esthela Leary MD (limited radiology technician). Dr. BECCA Barahona have personally reviewed and [...] dislocation identified. Dictated by Esthela Leary MD (limited radiology technician). Dr. BECCA Barahona have personally reviewed and [...] dislocation identified. Dictated by Esthela Leary MD (limited radiology technician). Dr. BECCA Barahona have personally reviewed and [...] residual edema. Dictated by Esthela Leary MD (limited radiology technician). I, Dr. SAJI ZHANG have personally reviewed [...] residual edema. Dictated by Esthela Leary MD (limited radiology technician). I, Dr. SAJI ZHANG have personally reviewed and interpreted this examination/study. This report was electronically signed by SAJI ZHANG on 12/11/2020 7:[address]ing [address] MD CT ORDERABLES * BLOOD TYPE VERIFICATION (12/10/2020 12:50 PM CDT) ABO Rh O POS 12/10/2020 1:1 7 PM CDT [facility] Blood Bank BLOOD SPECIMEN / Unknown Venipuncture / Unknown 12/10/2020 12:50 PM CDT 12/10/2020 12:56 PM CDT Chantel Zhu MD LAB - BLOOD BANK ORD ERABLES [facility] [address] [place] [address], [facility] [phone] * SARS-COV-2 (COVID-19)+INFLU A+B PCR RAPID (12/10/2020 8:02 AM CDT) COVID-19 PCR Not detected Not detected 12/11/19 8:46 AM CDT [facility] Influenza A Rapid SIVAKUMAR Not Detected Not Detected 12/10/2020 8:46 AM CDT [facility] Influenza B SIVAKUMAR Rapid Not Detected Not Detected 12/10/2020 8:46 AM CDT [facility] Microbiology SPECIMEN FROM NASOPHARYNGEAL STRUCTURE / Unknown Collection / Unknown 12/10/2020 8:02 AM CDT 12/10/2020 8:07 AM CDT Narrative [facility] - 12/10/2020 8:46 AM CDT Influenza [...] acid amplification assay performance was validated by [facility]. This test has been authorized by the [...] - MICROBIOLOGY O RDERABLES Performing Organization Address City/[facility]/ZIP Co de Phone Number [facility] [address] [place] [address], [facility] [phone] * PREPARE (CROSSMATCH) RBC UNIT(S), 1 Units (12/10/2020 6:25 AM CDT) Unit Description AS1 LR PRBC [facility] Unit ABO O [facility] Unit Rh POS [facility] Product Number R02 [facility] B LO[facility] Unit Donor # [id number] [facility] Unit Status released [facility] D [facility] Product Code [id number] [facility] B[facility] OD [facility]ANK [facility] Blood Type Barcode 5100 [facility] Expiration Date S BLOOD BANK LAB Blood Bank BLOOD SPECIMEN / Unknown 12/10/2020 5:02 AM CDT Chantel Zhu MD LAB - BLOOD BANK ORD ERABLES Performing Organization Address [facility]/ZIP Co de Phone Number [facility] [address] [place] [phone], [facility] [phone] * 3 Units (12/10/2020 6:25 AM CDT) Unit Description LR Whole BLood [facility] Unit ABO O [facility] Unit Rh POS [facility] Product Number [id number] [facility] B LOOD [facility] Unit Donor # [id number] [facility] Unit Status released [facility] Product Code [id number] [facility] OD [facility] Blood Type Barcode 5100 [facility] Expiration Date S BLOOD BANK LAB Unit Description LR Whole BLood [facility] Unit ABO O [facility] Unit Rh POS [facility] Product Number [id number] [facility] B LOOD [facility] Unit Donor # [id number] [facility] Unit Status released [facility] Product Code [id number] [facility] B[facility] OD [facility] Blood Type Barcode 5100 [facility] Expiration Date S BLOOD BANK LAB Unit Description LR Whole BLood [facility] Unit ABO O [facility] Unit Rh POS [facility] Product Number [id number] [facility] B LOOD [facility] Unit Donor # [id number] [facility] Unit Status released [facility] Product Code [id number] [facility] OD [facility] Blood Type Barcode 5100 [facility] Expiration Date S BLOOD BANK LAB Blood Bank BLOOD SPECIMEN / Unknown 12/10/2020 5:02 AM CDT Chantel Zhu MD LAB - BLOOD BANK ORD ERABLES Performing Organization Address City/[facility] Co de Phone Number [facility] [address] [place] [address], [facility] [phone] * EKG 12-LEAD (12/10/2020 4:42 AM CDT) Pathologist [facility] Ventricular Rate 92 BPM [facility] Atrial Rate 92 BPM [facility] P-R Interval 164 ms [facility] QRS Duration ms 110 ms [facility] Q-T Interval ms 408 ms [facility] QTC Calculation (Bezet) 504 ms [facility] Calculated P [place] 42 degrees [facility] Calculated R [place] -78 degrees [facility] Calculated T [place] 129 degrees [facility] Interpretation EKG NORMAL SINUS RHYTHM LEFT ATRIAL ENLARGEMENT LEFT AXIS DEVIATION LEFT VENTRICULAR HYPERTROPHY ( [place] product ) WITH REPOLARIZATION ABNORMALITY CANNOT RULE OUT SEPTAL INFARCT , AGE UNDETERMINED PROLONGED QT ABNORMAL ECG Confirmed by Kavon Henry ([id number]) on 12/11/2020 8:50:49 PM [facility] 12/10/2020 4:42 AM CDT 12/11/2020 8:50 PM CDT Ying Soto MD ECG ORDERABLES Performing Organization Address City/State/[facility] Co de Phone Number [facility] * PTT [facility] (12/10/2020 4:38 AM CDT) APTT 24.8 23.0 - 38.4 Seconds 12/10/2020 5:20 AM CDT [facility] Comment:Suggested therapeuti c range for full dose I.V. unfractionated heparin therapy for venous thromboembolism is 71 to 109 seconds. Blood BLOOD SPECIMEN / Unknown Venipuncture / Unknown 12/10/2020 4:38 AM CDT 12/10/2020 5:04 AM CDT Ying Soto MD LAB - COAGULATI ON ORDERABLES Performing Organization Address [facility] Co de Phone Number [address] [address], [place] [phone] * PT-INR [facility] (12/10/2020 4:38 AM CDT) Pathologist [facility] PT 14.1 12.1 - 14.8 Seconds 12/10/2020 5:20 AM CDT [facility] INR 1.1 See Comment 12/10/2020 5:20 AM CDT [facility] Comment:The suggested therap eutic range for standard coumadin (warfarin) therapy is an INR of 2.0-3.0. For high-risk patients (Mechanical Mitral Valve Prosthesis, etc.), the suggested prophylactic therapeutic range is an INR of 2.5-3.5. Blood BLOOD SPECIMEN / Unknown Venipuncture / Unknown 12/10/2020 4:38 AM CDT 12/10/2020 5:04 AM CDT Ying Soto MD LAB - COAGULATI ON ORDERABLES Performing Organization Address City/[facility]/ZIP Co de Phone Number [address] [address], [place] [phone] * TYPE + SCREEN PANEL (12/10/2020 4:38 AM CDT) Pathologist [facility] Antibody Screen NEG 5:43 AM CDT [facility] ABO Rh O POS 12/10/2020 5:43 AM [facility] Blood Bank BLOOD SPECIMEN / Unknown Venipuncture / Unknown 12/10/2020 4:38 AM CDT 12/10/2020 5:02 AM CDT Ying Soto MD LAB - BLOOD BAN K ORDERABLES Performing Organization Address [facility] Co de Phone Number [facility] [address] [place] [address], [facility] [phone] * (ABNORMAL) URINE DRUG SCREEN IMMUNOASSAY (12/10/2020 4:38 AM CDT) Pathologist [facility] Amphetamines Screen Urine Negative Negative : < 1000 ng/mL 12/10/2020 5:21 AM [facility] Barbiturates Screen Urine Negative Negative : < 200 ng/mL 12/10/2020 5:21 AM [facility] Benzodiazepine Screen Urine Positive(A) Negative : < 200 ng/mL 12/10/2020 5:21 AM [facility] Comment: Positive urine benzodiazepine screening results should be confirmed by another generally accepted non-immunological method such as gas chromatography or mass spectrometry. ? Opiates Urine Negative Negative : < 300 ng/mL 12/10/2020 5:21 AM [facility] Cocaine Metabolites Urine Negative Negative : < 300 ng/mL 12/10/2020 5:21 AM [facility] Phencyclidine Screen Urine Negative Negative : < 25 ng/ml 12/10/2020 5:21 AM [facility] Cannabinoids Screen Urine Positive(A) Negative : <50 ng/mL 12/10/2020 5:21 AM [facility] Comment:Positive urine canna binoids (THC) screening results should be confirmed by another generally accepted non-immunological method such as gas chromatography or mass spectrometry. Methadone Screen Urine Negative Negative : < 300 ng/mL 12/10/2020 5:21 AM [facility] Fentanyl Screen Urine Positive(A) Negative : <1.0 ng/mL 12/10/2020 5:21 AM CDT [facility] Comment:Positive urine fenta nyl screening results should be confirmed by another generally accepted non-immunological method such as gas chromatography or mass spectrometry. Urine URINE / Unknown Collection / Unknown 12/10/2020 4:38 AM CDT 12/10/2020 5:08 AM CDT Narrative [facility] - 12/10/2020 5:21 AM CDT The Urine Toxicology Screening Panel does not screen for Propoxyphene, Meprobamate, Carisoprodol, Trazodone, kbtr-wem-wyrknwr medications and/or volatiles (Acetone, Isopropanol, Methanol or Ethylene Glycol). Ethanol, Salicylate, Acetaminophen, Tricyclic Antidepressants and several therapeutic drugs may be individually assayed in serum or plasma specimen. Toxicology testing by the [facility] is an aid to medical diagnosis and treatment of patients. No documented chain of custody was maintained. Results are intended to be used for clinical purposes only. ? Ying Soto MD LAB - URINE CLINTON DOMONIQUE ORDERABLES Performing Organization Address [facility]/State/[facility] Co de Phone Number [facility] [address] [place] [phone], [facility] [phone] * LIPASE BLOOD (12/10/2020 4:38 AM CDT) Lipase 30 8 - 78 U/L 12/10/2020 5:56 AM CDT [facility] Blood BLOOD SPECIMEN / Unknown Venipuncture / Unknown 12/10/2020 4:38 AM CDT 12/10/2020 5:05 AM CDT Ying Soto MD LAB - CHEMISTRY ORDERABLES Performing Organization Address [facility] Co de Phone Number [facility] [address] [place] [address], [facility] [phone] * (ABNORMAL) ALCOHOL ETHYL BLOOD (12/10/2020 4:38 AM CDT) Ethanol (mg/dL) 210(H) <10 mg/dL 5:55 AM CDT [facility] Ethanol Calculated (g/dL) 0.210(H) <0.010 g/dL 12/10/2020 5:55 AM CDT [facility] Blood BLOOD SPECIMEN / Unknown Venipuncture / Unknown 12/10/2020 4:38 AM CDT 12/10/2020 5:05 AM CDT Narrative [facility] - 12/10/2020 5:55 AM CDT Ethanol Interp <10: None Detected. Depression of FRUIT VENDOR: >100 mg/dl Potentially Critical: >250 mg/dl Potentially [...] LAB - CHEMISTRY ORDERABLES Performing Organization Address City/[facility]/ZIP Co de Phone Number [facility] [address] [place] [address], [facility] [phone] * CT CHEST ABDOMEN PELVIS W CONT [...] M.D. on 12/10/2020 1:43 PM . Ying oSto MD CT ORDERABLES * CT LUMBAR SPINE [...] lumbar spine. Dictated by Karla Leger MD (limited radiology technician). Preliminary findings were discussed with Dr. Rivera [...] or lumbarspine. Dictated by Karla Leger MD (limited radiology technician). Preliminary findings were discussed with Dr. Rivera [...] lumbar spine. Dictated by Karla Leger MD (limited radiology technician). Preliminary findings were discussed with Dr. Rivera [...] or lumbarspine. Dictated by Karla Leger MD (limited radiology technician). Preliminary findings were discussed with Dr. Rivera [...] lumbar spine. Dictated by Karla Leger MD (limited radiology technician). Preliminary findings were discussed with Dr. Rivera [...] or lumbarspine. Dictated by Karla Leger MD (limited radiology technician). Preliminary findings were discussed with Dr. Rivera [...] lumbar spine. Dictated by Karla Leger MD (limited radiology technician). Preliminary findings were discussed with Dr. Rivera [...] or lumbarspine. Dictated by Karla Leger MD (limited radiology technician). Preliminary findings were discussed with Dr. Rivera [...] identified. Report dictated by Karla Leger M.D. (limited radiology technician). Dr. BECCA Barahona have personally reviewed and [...] identified. Report dictated by Karla Leger M.D. (limited radiology technician). Dr. BECCA Barahona have personally reviewed and [...] is recommended. Dictated by Karla Leger MD (limited radiology technician). Dr. BECCA Barahona have personally reviewed and [...] is recommended. Dictated by Karla Leger MD (limited radiology technician). Dr. BECCA Barahona have personally reviewed and [...] identified. Report dictated by Karla Leger M.D. (limited radiology technician). Dr. BECCA Barahona have personally reviewed and [...] identified. Report dictated by Karla Leger M.D. (limited radiology technician). Dr. BECCA Barahona have personally reviewed and [...] identified. Report dictated by Karla Leger M.D. (limited radiology technician). Dr. BECCA Barahona have personally reviewed and [...] identified. Report dictated by Karla Leger M.D. (limited radiology technician). Dr. BECCA Barahona have personally reviewed and [...] MD DIAGNOSTIC IMAG ING ORDERABLES Care Teams Ios Architect Relationship Specialty Start Date End Date Ran Arias MD [address] OF [facility] [place] [address] PCP - General Internal Medicine 12/28/20
[2024-06-29 21:50] LABS: Basophils Percent Auto 0.8 % (0.2-1.2); Eosinophils Absolute Auto 0.1 K/mm3 (0-0.3); Eosinophils Percent Auto 2.3 % (0-4.4); Hematocrit 38.7 % (42.0-52.0); Hemoglobin 12.1 g/dL (14.0-18.0); Immature Granulocyte Absolute 0.02 K/mm3 (0.00-0.031); Immature Granulocyte Percent A 0.4 % (0-0.5); Lymphocytes Absolute Auto 0.97 K/mm3 (0.9-3.2); Lymphocytes Percent Auto 18.5 % (18.3-44.2); Mean Corpuscular HGB Conc 31.3 g/dl (32-36); Mean Corpuscular Hemoglobin 25.9 pg (26-34); Mean Corpuscular Volume 82.7 fl (80-100); Mean Platelet Volume 9.6 fl (7.4-10.4); Monocytes Absolute Auto 0.3 K/mm3 (0.1-0.6); Monocytes Percent Auto 6.5 % (2.6-8.5); Neutrophils Absolute Auto 3.7 K/mm3 (1.3-6.7); Neutrophils Percent Auto 71.5 % (45.5-73.1); Nucleated Red Blood Cells Perc 0.4 % (0.0-0.2); Platelet Count Result 325 k/mm3 (150-375); Red Blood Count 4.68 M/mm3 (4.6-6.20); Red Cell Distribution Width 19.1 % (11.5-14.5); White Blood Count 5.2 K/mm3 (4.5-10.0)
[2024-06-29 22:01] LABS: Alveolar/Arterial O2 Gradient 53.6 mmHg; Base Excess ABG -2.6 mEq/l (+/-2.0); Fractional Inspired Oxygen 21 %; HCO3 ABG 21.7 mEq/l (22.0-26.0); Oxygen Content ABG 14.6 %vol (16.0-22.0); PCO2 ABG 35.9 mmHg (35.0-45.0); PO2 ABG 53.1 mmHg (80.0-100.0); PO2 FiO2 Ratio Arterial Blood 2.53 %; Total Hemoglobin 12.4 g/dL (12.0-18.0); pH ABG 7.399 (7.350-7.450)
[2024-06-29 22:02] LABS: INR 1.3; Prothrombin Time 16.4 Seconds (11.1-14.7)
[2024-06-29 22:02] LABS: Modified Allen's Test Pass; Oxygen Saturation ABG 87.8 % (95.0-100.0); Oxyhemoglobin 83.5 % THb (90.0-100.0); Site Drawn RIGHT RADIAL
[2024-06-29 22:03] LABS: Magnesium 2.3 mg/dL (1.6-2.3); Partial Thromboplastin Time 26.4 Seconds (22.3-36.8)
[2024-06-29] MEDS: FUROSEMIDE INJ 100 MG/10 ML VIAL 40 MG IV PUSH (22:09)
[2024-06-29 22:11] VITALS: BP 201/166; PULSE 103; RESP 26; O2SAT 94
[2024-06-29] MEDS: NITROGLYCERIN SL 0.4 MG TABLET SUBLINGUAL (22:11)
[2024-06-29 22:17] LABS: Alanine Aminotransferase 33 U/L (6-50); Albumin Level 3.7 g/dL (3.5-5.1); Alkaline Phosphatase 113 U/L (38-126); Anion Gap 12 mmol/L (4-12); Aspartate Amino Transferase 24 U/L (17-59); Bilirubin,Total 1.3 mg/dL (0.2-1.3); Blood Urea Nitrogen 41 mg/dL (9-20); Calcium 8.9 mg/dL (8.4-10.2); Carbon Dioxide 20 mmol/L (22-30); Chloride 105 mmol/L (98-107); Estimated CRCL calculation 31 ml/min; Estimated Glomerular Filt Rate 26; Glucose 108 mg/dL (65-110); Potassium 4.2 mmol/L (3.4-5.0); Sodium 137 mmol/L (137-145)
[2024-06-29 22:19] LABS: Procalcitonin 0.3 ng/mL
[2024-06-29 22:25] VITALS: BP 196/167; PULSE 92; RESP 26; O2SAT 96
[2024-06-29 22:44] LABS: NT Pro B Type Natriuretic Pept 12200 pg/mL (19.9-100); Troponin I 0.067 ng/mL (0.000-0.034)
[2024-06-29] MEDS: ASPIRIN 81 MG CHEWABLE TABLET 324 MG PO (23:56)
[2024-06-30] VITALS (33 sets, daily range): BP systolic 137–205; BP diastolic 85–169; PULSE 61–95; RESP 13–33; TEMP 36.3–37.1; O2SAT 90–100; BMI 31.4; BMI 31.5
--- NOTE | 2024-06-30 00:45 | ECG_ITS ---
Test Date: 2024-06-30 00:45:42 Measurements Intervals [place] Rate: 87 P: 30 CO: 196 QRS: -72 QRSD: 116 T: 90 QT: 399 QTc: 482 Interpretive Statements SINUS RHYTHM LEFT AXIS DEVIATION POSSIBLE RIGHT ATRIAL ENLARGEMENT LEFT ATRIAL ENLARGEMENT INCOMPLETE LEFT BUNDLE BRANCH BLOCK ANTEROSEPTAL MYOCARDIAL INFARCTION , OF INDETERMINATE AGE BORDERLINE ST-T WAVE ABNORMALITY- HIGH LATERAL LEADS ABNORMAL ECG Compared to ECG 06/29/2024 19:33:16 NO SIGNIFICANT CHANGE Electronically Signed On 06-30-2024 13:34:13 [employer] by Cholo Phipps D.O.
[2024-06-30] MEDS: NITROGLYCERIN OINTMENT 1 INCH DOSE TRANSDERM (00:46)
[2024-06-30] MEDS: DOXYCYCLINE 100 MG/NS 100 ML 100 MG/100 ML BAG IVPB (00:46)
[2024-06-30 01:16] LABS: Troponin I 0.072 ng/mL (0.000-0.034)
[2024-06-30] MEDS: hydrALAZINE HCL 20 MG/ML VIAL 10 MG IV PUSH (01:20)
[2024-06-30 01:46] LABS: Amphetamine Screen Urine Negative (Negative); Barbiturate Screen Urine Negative (Negative); Benzodiazepines Screen Urine Negative (Negative); Cannabinoid Screen Urine Positive (Negative); Cocaine Screen Urine Negative (Negative); Methadone Screen Urine Negative (Negative); Opiate Screen Urine Negative (Negative); Phencyclidine Screen Urine Negative (Negative)
[2024-06-30 01:47] LABS: Add Urine Microscopic? YES; Appearance Urine Clear (Clear); Bacteria Urine None Seen /hpf; Bilirubin Urine Negative (Negative); Blood Urine Negative (Negative); Color Urine Yellow (Yellow); Glucose Urine UA Negative (Negative); Ketones Urine Negative (Negative); Leukocyte Esterase Ur Negative LEU/UL (Negative); Need Manual Microscopic Reviewed; Nitrate Urine Negative (Negative); Protein Urine 4+ mg/dL (Negative); RBC Urine 0-2 /hpf (0-2); Specific Grav Ur 1.018 (1.001-1.035); Squamous Epithelial Cell Urine Occasional /hpf (Few); WBC Urine 0-5 /hpf (0-3); pH Urine 5.5 (5.0-9.0)
[2024-06-30] MEDS: METOPROLOL TARTRATE INJ 5 MG/5 ML VIAL IV PUSH (02:19)
--- NOTE | 2024-06-30 04:04 | PC.NURSE ---
Call made to Dr. Beaulieu in regards to pt bp still being 193/154. Awaiting call back.
[2024-06-30] MEDS: LABETALOL HCL INJ 100 MG/20 ML VIAL 20 MG IV PUSH (04:28)
--- NOTE | 2024-06-30 05:49 | PC.NURSE ---
Dr. Beaulieu notified of pt bp of 169/143 and stated she is okay with it and would just like systolic bp to stay below 180.
--- NOTE | 2024-06-30 06:45 | PC.NURSE ---
Pt placed on 2L NC while sleeping due to O2 fluctuation between 80s and 90s.
[2024-06-30] MEDS: FUROSEMIDE INJ 40 MG/4 ML VIAL IV PUSH ×2 (09:51→18:13)
[2024-06-30] MEDS: NIFEdipine 30 MG TAB.ER.24 PO (09:52)
[2024-06-30] MEDS: SACUBITRIL/VALSARTAN 49-51 MG TABLET 1 TABLET PO ×2 (09:52→21:09)
[2024-06-30] MEDS: carvediloL 25 MG TABLET PO ×2 (09:52→21:09)
--- NOTE | 2024-06-30 11:13 | PM.IMHP ---
H&P: HPI History of Present Illness Date/Time: 06/30/24 11:13 Chief Complaint: Shortness breath Narrative: 39 years old man with history of systolic heart failure EF 30-35% on echocardiogram July 2021, hypertension, CKD stage 3, chronic anemia, tobacco dependence, present ED with a chief complaint of shortness breath. Patient has been having progressive worsening shortness breath in past few more days, and had severe shortness breath in past 1 day before arrival in the ED. patient denies chest pain but has has chest heaviness and palpitation. Patient noticed worsening lower extremities edema in past 3 days. Patient also has orthopnea in past few more days. Patient cough with scant phlegm.Patient denies fever, cough, abdomen pain, nausea vomiting diarrhea dysuria headache, focal weakness. Upon arrival to ED, patient was found have uncontrolled hypertension, blood pressure 186/143, tachypnea, tachycardia, labs shows anemia hemoglobin 12.1, above baseline, elevated BUN creatinine ratio 41/3.24, baseline creatinine 2.6 December 06, 2023, elevated troponin x2 trending up, EKG showed sinus tachycardia, tachycardia 104, no specific ST or T-wave changes. Chest x-ray showed cardiomegaly, increased opacity within the right upper lobe, suspecting early infiltrate Review of Systems Review of Systems: ROS negative except above PMFSH Past Medical History Medical History Chronic renal failure Heart failure with reduced ejection fraction EF of 30 to 35% on echocardiogram in July 2021. Hypertension Hypertensive cardiomyopathy Hypertensive kidney disease with CKD stage III Tobacco use Surgical History Surgical History No history of previous surgery Family History Family History Father , at age 53. 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 He lives in [place], alone. He smokes about a pack a week and drinks on the weekends, approximately a few shots and a couple of beers. He also uses marijuana. His mother, Juanita Headley is his emergency contact. Smoking packs per day: 3 Smoking cigarettes per day: 60.0 Smoking status: Current every day smoker Tobacco type: cigarettes Alcohol intake: current Alcohol use details: Drinks alcohol on the weekends Substance use: current Substance use type: marijuana Do You Feel Safe in your Home?: Yes Lack of Transportation: No Lack of Food: Never True Current Housing: I Have Housing Concerned About Future Housing: No Difficulty Paying Gas/Electric Bills: No Difficulty Paying for Meds: No Currently Unemployed: No Education: Decline to Answer Difficulty w/ Childcare or Family Care: No Living arrangements: with family Occupation/Education: occupation Spiritual care concerns: No Meds Home Medications and Allergies Home Medications ?Medication ?Instructions ?Recorded ?Confirmed ?Type carvedilol 25 mg tablet (Coreg) 25 mg PO Q12HR #60 tabs 12/06/23 06/30/24 Rx furosemide 40 mg tablet 40 mg PO DAILY #30 tabs 12/06/23 06/30/24 Rx nifedipine 30 mg tablet,extended 30 mg PO DAILY 30 days #30 tabs 12/06/23 06/30/24 Rx release 24 hr (Procardia XL) sacubitril 49 mg-valsartan 51 mg 1 tablet PO Q12HR 30 days #60 tabs 12/06/23 06/30/24 Rx tablet (Entresto) hydralazine 100 mg tablet 100 mg PO QID 06/30/24 06/30/24 History isosorbide dinitrate 30 mg tablet 30 mg PO QID 06/30/24 06/30/24 History Allergies Allergy/AdvReac Type Severity Reaction Status Date / Time No Known Allergies Allergy Verified 06/29/24 16:44 Vital Signs Vital Signs - 24 hr 06/29/24 16:40 06/29/24 19:40 06/29/24 20:45 Temperature 99.4 F 98.1 F 99.4 F Pulse Rate 94 97 94 Respiratory Rate 20 17 20 Blood Pressure 199/57 H 198/156 H 199/57 H Pulse Oximetry 100 100 100 Oxygen Delivery Room Air Room Air Oxygen Flow Rate 06/29/24 20:53 06/29/24 20:53 06/29/24 22:11 Temperature Pulse Rate 116 H 116 H 103 H Respiratory Rate 19 26 H Blood Pressure 183/162 H 201/166 H Pulse Oximetry 97 94 Oxygen Delivery Oxygen Flow Rate 06/29/24 22:25 06/30/24 00:50 02/05/25 01:43 Temperature 98.8 F Pulse Rate 92 94 95 Respiratory Rate 26 H 14 33 H Blood Pressure 196/167 H 202/154 H 205/169 H Pulse Oximetry 96 97 95 Oxygen Delivery Oxygen Flow Rate 06/30/24 02:19 06/30/24 02:25 06/30/24 04:13 Temperature Pulse Rate 85 90 84 Respiratory Rate 20 17 Blood Pressure 195/159 H 193/154 H Pulse Oximetry 99 100 Oxygen Delivery Oxygen Flow Rate 06/30/24 04:28 06/30/24 05:06 06/30/24 06:45 Temperature Pulse Rate 91 77 74 Respiratory Rate 17 17 Blood Pressure 167/135 H 177/142 H Pulse Oximetry 97 96 Oxygen Delivery Oxygen Flow Rate 06/30/24 07:59 06/30/24 08:00 06/30/24 09:52 Temperature Pulse Rate 85 92 Respiratory Rate 19 Blood Pressure 186/143 H Pulse Oximetry 100 100 Oxygen Delivery Nasal Cannula Oxygen Flow Rate 2 06/30/24 10:22 Temperature Pulse Rate 81 Respiratory Rate 20 Blood Pressure 166/142 H Pulse Oximetry 98 Oxygen Delivery Oxygen Flow Rate Exam Narrative: GENERAL: Ill-appearing, in no acute distress. Well-nourished. - EYES: EOMI. Anicteric. - HENT: Moist mucous membranes. - LUNGS: Coarse breath sound bilaterally, crackles bilateral base, no wheezing, rhonchi, - CARDIOVASCULAR: Regular rate and rhythm. No murmur. No JVD. - ABDOMEN: Soft, non-tender and non-distended. No palpable masses. - EXTREMITIES: No edema. Peripheral pulses 2+. Non-tender. - NEUROLOGIC: No focal neurological deficits. CN II-XII grossly intact. - PSYCHIATRIC: Awake, Alert and oriented x 3. Appropriate mood and affect. - SKIN: No rashes or lesions. Warm. - LYMPH: No cervical lymphadenopathy. H&P: Results Labs Labs: Short CBC 06/29/24 Range/Units 21:44 WBC 5.2 (4.5-10.0) K/mm3 Hgb 12.1 L (14.0-18.0) g/dL Hct 38.7 L (42.0-52.0) % Plt Count 325 (150-375) k/mm3 [facility] 06/29/24 21:44 Sodium 137 Potassium 4.2 Chloride 105 Carbon Dioxide 20 L BUN 41 H D Creatinine 3.24 H Glucose 108 Calcium 8.9 Cardiac Enzymes 06/29/24 06/30/24 Range/Units 21:44 00:46 Troponin I 0.067 H* 0.072 H* (0.000-0.034) ng/mL Liver Function 06/29/24 Range/Units 21:44 Total Bilirubin 1.3 (0.2-1.3) mg/dL AST 24 (17-59) U/L ALT 33 (6-50) U/L Alkaline Phosphatase 113 (38-126) U/L Albumin 3.7 (3.5-5.1) g/dL Urine 06/30/24 Range/Units 01:23 Urine Color Yellow (Yellow) Urine Appearance Clear (Clear) Urine pH 5.5 (5.0-9.0) Ur Specific [place] 1.018 (1.001-1.035) Urine Protein 4+ H (Negative) mg/dL Urine Glucose (UA) Negative (Negative) mg/dL Assessment and Plan Assessment and plan (1) Hypertensive emergency: Code(s): I16.1 - Hypertensive emergency Status: Acute (2) Hypertensive heart failure: Code(s): I11.0 - Hypertensive heart disease with heart failure Status: Acute (3) Acute on chronic combined systolic and diastolic CHF (congestive heart failure): Code(s): I50.43 - Acute on chronic combined systolic (congestive) and diastolic (congestive) heart failure Status: Acute (4) Elevated troponin: Code(s): R77.8 - Other specified abnormalities of plasma proteins Status: Acute (5) Non-ST elevation [place] (NSTEMI): Code(s): I21.4 - Non-ST elevation (NSTEMI) myocardial infarction Status: Acute (6) Chest pain: Code(s): R07.9 - Chest pain, unspecified Status: Acute (7) Acute kidney injury superimposed on stage 4 chronic kidney disease: Code(s): N17.9 - Acute kidney failure, unspecified; N18.4 - Chronic kidney disease, stage 4 (severe) Status: Acute (8) Normocytic anemia: Code(s): D64.9 - Anemia, unspecified Status: Acute (9) Tobacco use: Code(s): Z72.0 - Tobacco use Status: Acute Plan Acute on chronic combined heart failure Patient has history of chronic systolic diastolic heart failure Exacerbation likely secondary to uncontrolled hypertension and possible noncompliance with medication Switch from over Lasix to IV Lasix 40 mg b.i.d. IV push, Entresto 1 tab b.i.d. Repeat echocardiogram Consult vice president medical affairs for evaluation treatment Hypertension emergency Upon arrival to ED, patient was found have uncontrolled hypertension, blood pressure 186/143, tachypnea, tachycardia, Hypertension induced acute heart failure and elevated troponin indicating heart muscle injury Continue carvedilol 25 mg b.i.d. p.o. hydralazine 100 mg q.i.d. p.o. nifedipine 30 mg daily p.o. isobide 30 mg q.i.d. p.o. Start hydralazine 10 mg q.4 p.r.n. with parameters In the ED patient also received labetalol and hydralazine IV Blood pressure is better control Consult vice president medical affairs for evaluation treatment NSTEMI Patient has shortness breath and chest pain elevated troponin x2 trending up, EKG showed sinus tachycardia, tachycardia 104, no specific ST or T-wave changes. Suspecting demand ischemia due to uncontrolled blood pressure and heart failure Pending echocardiogram Received aspirin 324 mg once, continue aspirin 81 mg daily p.o. Telemetry monitoring Further workup and treatment vice president medical affairs MIHAI on CKD Worsening kidney function will baseline Possible due to uncontrolled hypertension, cardiorenal syndrome Follow urinalysis, renal ultrasound Consult salmon troll fisher for evaluation treatment Chronic anemia Likely secondary to CKD Follow-up ferritin and iron panel Follow-up CBC Community acquired pneumonia Chest x-ray showed cardiomegaly, increased opacity within the right upper lobe, suspecting early infiltrate Received doxycycline and ceftriaxone ED Possible atypical pneumonia Continue doxy and ceftriaxone IV Quality VTE Prophylaxis VTE prophylaxis: pharmacologic ordered Hospitalist [facility] Advance Care Plan I have confirmed that the patient's Advanced Care Plan is present, code status is documented, or surrogate decision maker is listed in patient medical record.: Yes Medication Reconciliation I have utilized all available resources to obtain, update and review the patients current medications (includes all prescriptions, OTC, herbals, cannabis, and nutritional supplements).: Yes
[2024-06-30] MEDS: DOXYCYCLINE HYCLATE 100 MG TABLET PO ×2 (12:11→21:08)
[2024-06-30] MEDS: cefTRIAXone 2 GM/NS 100 ML 2 GM/100 ML BAG IVPB (12:11)
[2024-06-30] MEDS: hydrALAZINE HCL 50 MG TABLET 100 MG PO ×3 (13:33→21:08)
[2024-06-30] MEDS: ISOSORBIDE DINITRATE 10 MG TABLET 30 MG PO ×3 (13:34→21:08)
--- NOTE | 2024-06-30 16:28 | ADMGEN ---
This patient, Manuel Headley, was admitted to IMU Room 206-02. Patient/family oriented to hospital policies and general routines including ID bracelet, bed and alarms, visiting hours, pain management, procedures, bathroom and other care routines, personal items, smoking policy, room service/diet, and visiting hours. Information on how to activate the Rapid Response Team has been discussed. Patient/Family are encouraged to report perceived risks to care and to ask questions if they do not understand what they are told or what they should do.
[2024-07-01] VITALS (14 sets, daily range): BP systolic 133–165; BP diastolic 88–116; PULSE 67–88; RESP 16–20; TEMP 36.4–37; O2SAT 92–99
[2024-07-01 07:50] LABS: Basophils Percent Auto 0.5 % (0.2-1.2); Eosinophils Absolute Auto 0.2 K/mm3 (0-0.3); Eosinophils Percent Auto 3.8 % (0-4.4); Hematocrit 35.8 % (42.0-52.0); Hemoglobin 11.1 g/dL (14.0-18.0); Immature Granulocyte Absolute 0.02 K/mm3 (0.00-0.031); Immature Granulocyte Percent A 0.3 % (0-0.5); Lymphocytes Absolute Auto 0.85 K/mm3 (0.9-3.2); Lymphocytes Percent Auto 14.6 % (18.3-44.2); Mean Corpuscular Hemoglobin 25.6 pg (26-34); Mean Corpuscular Volume 82.5 fl (80-100); Mean Platelet Volume 9.3 fl (7.4-10.4); Monocytes Absolute Auto 0.5 K/mm3 (0.1-0.6); Monocytes Percent Auto 7.7 % (2.6-8.5); Neutrophils Absolute Auto 4.3 K/mm3 (1.3-6.7); Neutrophils Percent Auto 73.1 % (45.5-73.1); Platelet Count Result 314 k/mm3 (150-375); Red Blood Count 4.34 M/mm3 (4.6-6.20); White Blood Count 5.8 K/mm3 (4.5-10.0)
[2024-07-01 08:14] LABS: Alanine Aminotransferase 27 U/L (6-50); Alkaline Phosphatase 99 U/L (38-126); Anion Gap 6 mmol/L (4-12); Aspartate Amino Transferase 23 U/L (17-59); Bilirubin,Total 1.1 mg/dL (0.2-1.3); Blood Urea Nitrogen 34 mg/dL (9-20); Calcium 8.3 mg/dL (8.4-10.2); Carbon Dioxide 26 mmol/L (22-30); Chloride 105 mmol/L (98-107); Estimated CRCL calculation 40 ml/min; Estimated Glomerular Filt Rate 31; Glucose 91 mg/dL (65-110); Phosphorus 3.1 mg/dL (2.5-4.5); Potassium 3.8 mmol/L (3.4-5.0); Sodium 137 mmol/L (137-145)
[2024-07-01] MEDS: SACUBITRIL/VALSARTAN 49-51 MG TABLET 1 TABLET PO ×2 (08:16→20:06)
[2024-07-01] MEDS: carvediloL 25 MG TABLET PO ×2 (08:16→20:07)
[2024-07-01] MEDS: ISOSORBIDE DINITRATE 10 MG TABLET 30 MG PO ×4 (08:16→20:55)
[2024-07-01] MEDS: FUROSEMIDE INJ 40 MG/4 ML VIAL IV PUSH ×2 (08:16→16:34)
[2024-07-01] MEDS: NIFEdipine 30 MG TAB.ER.24 PO (08:16)
[2024-07-01] MEDS: DOXYCYCLINE HYCLATE 100 MG TABLET PO ×2 (08:16→20:13)
[2024-07-01] MEDS: hydrALAZINE HCL 50 MG TABLET 100 MG PO ×4 (08:16→20:06)
--- NOTE | 2024-07-01 09:06 | P.PNIM_ITS ---
Progress Note: A&P Assessment and Plan (1) Hypertensive emergency: Code(s): I16.1 - Hypertensive emergency Status: Acute (2) Hypertensive heart failure: Code(s): I11.0 - Hypertensive heart disease with heart failure Status: Acute (3) Acute on chronic combined systolic and diastolic CHF (congestive heart failure): Code(s): I50.43 - Acute on chronic combined systolic (congestive) and diastolic (congestive) heart failure Status: Acute (4) Elevated troponin: Code(s): R77.8 - Other specified abnormalities of plasma proteins Status: Acute (5) Non-ST elevation [place] (NSTEMI): Code(s): I21.4 - Non-ST elevation (NSTEMI) myocardial infarction Status: Acute (6) Chest pain: Code(s): R07.9 - Chest pain, unspecified Status: Acute (7) Acute kidney injury superimposed on stage 4 chronic kidney disease: Code(s): N17.9 - Acute kidney failure, unspecified; N18.4 - Chronic kidney disease, stage 4 (severe) Status: Acute (8) Normocytic anemia: Code(s): D64.9 - Anemia, unspecified Status: Acute (9) Tobacco use: Code(s): Z72.0 - Tobacco use Status: Acute Plan Acute on chronic combined heart failure Patient has history of chronic systolic diastolic heart failure Exacerbation likely secondary to uncontrolled hypertension and possible noncompliance with medication Switch from over Lasix to IV Lasix 40 mg b.i.d. IV push, Entresto 1 tab b.i.d. Repeat echocardiogram Consult funeral home associate for evaluation treatment Hypertension emergency Upon arrival to ED, patient was found have uncontrolled hypertension, blood pressure 186/143, tachypnea, tachycardia, Hypertension induced acute heart failure and elevated troponin indicating heart muscle injury Continue carvedilol 25 mg b.i.d. p.o. hydralazine 100 mg q.i.d. p.o. nifedipine 30 mg daily p.o. isobide 30 mg q.i.d. p.o. Start hydralazine 10 mg q.4 p.r.n. with parameters In the ED patient also received labetalol and hydralazine IV Blood pressure is better control Consult funeral home associate for evaluation treatment now BP is better controlled NSTEMI Patient has shortness breath and chest pain elevated troponin x2 trending up, EKG showed sinus tachycardia, tachycardia 104, no specific ST or T-wave changes. Suspecting demand ischemia due to uncontrolled blood pressure and heart failure Pending echocardiogram Received aspirin 324 mg once, continue aspirin 81 mg daily p.o. Telemetry monitoring Further workup and treatment funeral home associate MIHAI on CKD Worsening kidney function will baseline Possible due to uncontrolled hypertension, cardiorenal syndrome Follow urinalysis: 4+ protein, renal ultrasound: Echogenic kidneys, consistent with nonspecific nephropathy. Consult research worker kitchen for evaluation treatment Renal function is improving today 2/6 Chronic anemia Likely secondary to CKD Follow-up ferritin and iron panel Follow-up CBC Community acquired pneumonia Chest x-ray showed cardiomegaly, increased opacity within the right upper lobe, suspecting early infiltrate Received doxycycline and ceftriaxone ED Possible atypical pneumonia Continue doxy and ceftriaxone IV Subjective Date/time seen: 07/01/24 09:06 Interval history: I saw and and examined patient today, patient feels dyspnea is improving. Patient did have orthopnea during the night. Patient denies chest pain, headache, focal weakness. Patient afebrile blood pressure stable, blood pressure is better controlled Exam Narrative: GENERAL: Ill-appearing, in no acute distress. Well-nourished. - EYES: EOMI. Anicteric. - HENT: Moist mucous membranes. - LUNGS: Coarse breath sound bilaterall y, crackles bilateral base, no wheezing, rhonchi, - CARDIOVASCULAR: Regular rate and rhyth m. No murmur. No JVD. - ABDOMEN: Soft, non-tender and non-dist ended. No palpable masses. - EXTREMITIES: No edema. Peripheral puls es 2+. Non-tender. - NEUROLOGIC: No focal neurological defi cits. CN II-XII grossly intact. - PSYCHIATRIC: Awake, Alert and oriented x 3. Appropriate mood and affect. - SKIN: No rashes or lesions. Warm. - LYMPH: No cervical lymphadenopathy. Objective Data Vital Signs Vital Signs: Vital Signs - 24 hr 06/30/24 09:52 06/30/24 10:01 06/30/24 10:22 Temperature Pulse Rate 92 92 81 Respiratory Rate 32 H 20 Blood Pressure 166/142 H 166/142 H Pulse Oximetry 98 Oxygen Delivery 06/30/24 12:01 06/30/24 12:31 06/30/24 13:01 Temperature Pulse Rate 72 71 72 Respiratory Rate 13 26 H 17 Blood Pressure 137/96 H 147/85 H 151/113 H Pulse Oximetry 100 94 Oxygen Delivery 06/30/24 13:33 06/30/24 13:34 06/30/24 13:47 Temperature Pulse Rate 71 68 76 Respiratory Rate 21 H 18 22 H Blood Pressure 151/118 H Pulse Oximetry 90 100 93 Oxygen Delivery 06/30/24 14:02 06/30/24 14:17 06/30/24 14:38 Temperature Pulse Rate 72 78 70 Respiratory Rate 22 H 25 H 27 H Blood Pressure Pulse Oximetry 95 97 96 Oxygen Delivery 06/30/24 14:45 06/30/24 15:03 06/30/24 16:15 Temperature 97.6 F Pulse Rate 61 76 80 Respiratory Rate 22 H 27 H 20 Blood Pressure 139/94 H Pulse Oximetry 90 97 Oxygen Delivery 06/30/24 18:00 06/30/24 20:00 06/30/24 20:00 Temperature Pulse Rate 81 85 Respiratory Rate Blood Pressure Pulse Oximetry Oxygen Delivery Room Air 06/30/24 20:03 06/30/24 21:09 06/30/24 22:00 Temperature 97.4 F L Pulse Rate 76 85 83 Respiratory Rate 18 Blood Pressure 147/99 H Pulse Oximetry 93 Oxygen Delivery 07/01/24 00:00 07/01/24 00:00 07/01/24 00:13 Temperature 98.6 F Pulse Rate 80 77 Respiratory Rate 18 Blood Pressure 148/97 H Pulse Oximetry 92 Oxygen Delivery Room Air 07/01/24 02:00 07/01/24 04:00 07/01/24 04:00 Temperature Pulse Rate 73 81 Respiratory Rate Blood Pressure Pulse Oximetry Oxygen Delivery Room Air 07/01/24 04:08 07/01/24 06:00 07/01/24 08:00 Temperature 97.9 F Pulse Rate 88 73 Respiratory Rate 18 Blood Pressure 141/91 H Pulse Oximetry 98 95 Oxygen Delivery Room Air 07/01/24 08:16 07/01/24 08:29 Temperature 98.3 F Pulse Rate 85 82 Respiratory Rate 20 Blood Pressure 165/116 H Pulse Oximetry 95 Oxygen Delivery Intake/Output Intake/Output: Intake & Output 06/28/24 06/29/24 06/30/24 07/01/24 23:59 23:59 23:59 23:59 Intake Total 1510 Output Total 1600 200 Balance -90 -200 Meds/Results Medications: Active Medications Generic Name Dose Route Start Last Admin Trade Name Freq PRN Reason Stop Dose Admin Acetaminophen 650 mg 06/30/24 00:38 Acetaminophen 325 Mg Tablet PO Q4H PRN Mild Pain (1-3) or Fever Carvedilol 25 mg 06/30/24 09:00 07/01/24 08:16 Carvedilol 25 Mg Tablet PO 25 mg Q12HR MEENA Administration Doxycycline Hyclate 100 mg 06/30/24 12:00 07/01/24 08:16 Doxycycline Hyclate 100 Mg Tablet PO 100 mg Q12HR MEENA Administration Furosemide 40 mg 06/30/24 09:00 07/01/24 08:16 Furosemide Inj 40 Mg/4 Ml Vial IV PUSH 40 mg BID MEENA Administration Hydralazine HCl 20 mg 06/30/24 04:29 Hydralazine Hcl 20 Mg/Ml Vial IV PUSH Q4H PRN SBP greater than 160 Hydralazine HCl 100 mg 06/30/24 13:00 07/01/24 08:16 Hydralazine Hcl 50 Mg Tablet PO 100 mg QID MEENA Administration Ceftriaxone Sodium 2 gm in 100 mls @ 200 mls/hr 06/30/24 12:00 06/30/24 12:42 Rocephin 2 Gm/Ns 100 Ml IVPB Infused Q24H MEENA Infusion Isosorbide Dinitrate 30 mg 06/30/24 13:00 07/01/24 08:16 Isosorbide Dinitrate 10 Mg Tablet PO 30 mg QID MEENA Administration Metoprolol Tartrate 10 mg 06/30/24 04:29 Metoprolol Tartrate Inj 5 Mg/5 Ml Vial IV PUSH Q6H PRN SBP greater than 160 Nifedipine 30 mg 07/01/24 09:00 07/01/24 08:16 Nifedipine 30 Mg Tab.Er.24 PO 30 mg DAILY MEENA Administration Ondansetron HCl 4 mg 06/30/24 00:38 Ondansetron Inj 4 Mg/2 Ml Vial IV PUSH Q4H PRN Nausea Perflutren Lipid Microsphere 0 ml 06/30/24 11:34 Perflutren Lipid Microspheres 1.5 Ml Vial Diluted To 10 Ml Total Volume IV PUSH 07/03/24 11:34 ONCE PRN adequate visualization Protocol Sacubitril/Valsartan 1 tablet 06/30/24 21:00 07/01/24 08:16 Sacubitril/Valsartan 49-51 Mg Tablet PO 1 tablet Q12HR MEENA Administration Radiology Results: ITS Impressions Chest X-Ray 06/29/24 16:33 IMPRESSION: Early right upper lobe infiltrate. Renal Ultrasound 06/30/24 12:26 IMPRESSION: 1. Echogenic kidneys, consistent with nonspecific nephropathy. 2. Small volume of ascites. Labs Labs: Laboratory Results - last 24 hr 07/01/24 07:38 WBC 5.8 RBC 4.34 L Hgb 11.1 L Hct 35.8 L MCV 82.5 MCH 25.6 L MCHC 31.0 L RDW 19.0 H Plt Count 314 MPV 9.3 Immature Gran % (Auto) 0.3 Neut % (Auto) 73.1 Lymph % (Auto) 14.6 L [place] % (Auto) 7.7 Eos % (Auto) 3.8 Baso % (Auto) 0.5 Lymph # (Auto) 0.85 L [place] # (Auto) 0.5 Eos # (Auto) 0.2 Baso # (Auto) 0.0 Abs Immat Gran (auto) 0.02 Absolute Neuts (auto) 4.3 Absolute Nucleated RBC 0.000 Nucleated RBC % 0.0 Sodium 137 Potassium 3.8 Chloride 105 Carbon Dioxide 26 Anion Gap 6 BUN 34 H Creatinine 2.80 H Estim Creat Clear Calc 40 Estimated GFR 31 L Glucose 91 Calcium 8.3 L Phosphorus 3.1 Magnesium 2.0 Total Bilirubin 1.1 AST 23 ALT 27 Alkaline Phosphatase 99 Total Protein 7.0 Albumin 3.0 L
[2024-07-01] MEDS: PERFLUTREN LIPID MICROSPHERES 1.5 ML VIAL DILUTED TO 10 ML TOTAL VOLUME IV PUSH (10:20)
--- NOTE | 2024-07-01 11:34 | ECHO_ITS ---
Patient Info Name: Manuel Headley Age: 39 years : 1985 Gender: Male Ht: 72 in Wt: 231 lbs BSA: 2.33 m2 HR: 73 bpm BP: 141 / 91 mmHg Technical Quality: Fair Exam Date: 07/01/2024 10:00 AM Exam Location: Echo Lab Patient Status: Inpatient Admit Date: 06/30/2024 Staff Ordering Physician: Simran Trejo MD Making Department Preparer: Cris Ragland RDCS Attending Provider: Mariam Beaulieu DO Exam Type: CA echo dop color flow w con Study Info Indications - ACUTE HEART FAILURE Complete two-dimensional, color flow and Doppler transthoracic echocardiogram is performed with contrast to opacify the left ventricle and to improve the deliniation of the left ventricle endocardial borders. Contrast/Agitated Saline Contrast/Ag. Saline: Definity Amount: 2.00 ml Existing IV Access: Yes Summary 1. The left ventricle is normal size. There is severe concentric left ventricular hypertrophy. The left ventricular ejection fraction is visually estimated to be 30-35%. 2. Grade III diastolic dysfunction of the left ventricle (restrictive filling pattern). 3. The right ventricle is normal size with reduced systolic function. 4. There is severe biatrial enlargement. 5. No significant valvular disease in this study. 6. Consider infiltrative cardiomyopathy workup. Left Ventricle The left ventricle is normal size. There is severe concentric left ventricular hypertrophy. The left ventricular ejection fraction is visually estimated to be 30-35%. Grade III diastolic dysfunction of the left ventricle (restrictive filling pattern). Right Ventricle The right ventricle is normal size with reduced systolic function. Left Atria The left atrium is severely dilated. Right Atria The right atrium is severely dilated. Atrial Septum The atrial septum visually appears intact. Aortic Valve The aortic valve is trileaflet and opens well. There is no aortic regurgitation. Pulmonic Valve The pulmonic valve is normal. There is no pulmonic valve regurgitation. Mitral Valve The mitral valve is normal. There is no mitral regurgitation. Tricuspid Valve The tricuspid valve is normal. There is no tricuspid regurgitation. Inferior Vena Cava Dilated inferior vena cava with <50% collapse upon inspiration consistent with significantly elevated right atrial pressure, 15 mmHg. Dilated inferior vena cava with <50% collapse upon inspiration consistent with significantly elevated right atrial pressure, 15 mmHg. Aorta The aortic root at the level of the sinus of Valsalva measures 3.8 cm in diameter. Left Ventricular Outflow Tract Name Value Normal LVOT 2D LVOT Diameter 2.36 cm LVOT Doppler LVOT Peak Gradient 3 mmHg LVOT Mean Gradient 2 mmHg LVOT VTI 16.12 cm LVOT VTI/AV VTI Ratio 0.62 LVOT Stroke Volume 70.34 ml LVOT CO 4.77 l/min LVOT CI 2.11 L/min/m2 Pulmonic Valve Name Value Normal RVOT Doppler RVOT Peak Gradient 1 mmHg PV Doppler PV Peak Gradient 2 mmHg Mitral Valve Name Value Normal MV Doppler MV Peak Gradient 5 mmHg MV Mean Gradient 2 mmHg MV Decel [place] 797.78 cm/s2 MV PHT 0 s MV Area (PHT) 4.60 cm2 4.00-5.00 MV Area (Cont Eq VTI) 2.13 cm2 MV Diastolic Function MV E Peak Velocity 89.61 cm/s MV A Peak Velocity 43.41 cm/s MV E/A 2.06 MV Decel Time 0 s MV Annular TDI MV E/e' (Septal) 26.16 <=8.00 MV E/e' (Lateral) 13.28 <=8.00 MV E/e' (Average) 19.72 Tricuspid Valve Name Value Normal Estimated PAP/RSVP RA Pressure 15 mmHg <=5 Aorta Name Value Normal Ascending Aorta Ao Root Diameter (MM) 4.62 cm Ao Root Diam Index (MM) 1.98 cm/m2 Aortic Valve Name Value Normal AV Doppler AV Peak Velocity 142.24 cm/s AV Peak Gradient 8 mmHg AV Mean Gradient 5 mmHg AV VTI 25.81 cm AV Area (Cont Eq VTI) 2.73 cm2 >=3.00 AV Area (Cont Eq Les) 2.69 cm2 AV Regurgitation 2D LVOT Area 4.36 cm2 Ventricles Name Value Normal LV Dimensions 2D/MM IVS Diastolic Thickness (2D) 1.49 cm 0.60-1.00 LVID Diastole (2D) 5.02 cm 4.20-5.80 LVIW Diastolic Thickness (2D) 2.39 cm 0.60-1.00 LVID Systole (2D) 4.40 cm 2.50-4.00 LVOT Diameter 2.36 cm LV Mass (2D Cubed) 482.43 g 88.00-224.00 LV Mass Index (2D Cubed) 0.02 g/cm2 0.00-0.01 Relative Wall Thickness (2D) 0.95 LV Fractional Shortening/Ejection Fraction 2D/MM LV Fractional Shortening (2D) 18 % 25-43 LV EF (2D Te[place]jaycee) 37 % 52-72 LV Diastolic Volume (4C MOD) 155.13 ml LV EF (4C MOD) 35 % LV Diastolic Volume (2C MOD) 127.77 ml LV EF (2C MOD) 19 % LV Diastolic Volume (BP MOD) 149.90 ml 62.00-150.00 LV Diastolic Volume Index (BP MOD) 0.06 l/m2 0.03-0.07 LV Systolic Volume (BP MOD) 107.47 ml 21.00-61.00 LV Systolic Volume Index (BP MOD) 0.05 l/m2 0.01-0.03 LV EF (BP MOD) 28 % 52-72 LV Diastolic Length (4C) 10.31 cm LV Systolic Length (4C) 9.14 cm LV Stroke Volume (4C MOD) 54.19 ml Atria Name Value Normal LA Dimensions LA Dimension (MM) 4.72 cm 3.00-4.10 LA Volume (4C A-L) 110.93 ml LA Volume (BP A-L) 133.53 ml RA Dimensions RA Area (4C) 29.82 cm2 <=18.00 Report Signatures
[2024-07-01] MEDS: cefTRIAXone 2 GM/NS 100 ML 2 GM/100 ML BAG IVPB (12:47)
--- NOTE | 2024-07-01 13:28 | P.CONCA_ITS ---
Assessment and Plan Assessment and plan (1) CHF (congestive heart failure): Qualifiers: Heart failure chronicity: acute Heart failure type: unspecified Q ualified Code(s): I50.9 - Heart failure, unspecified Code(s): I50.9 - Heart failure, unspecified Status: Acute Assessment and Plan: Presents with shortness of breath and lower extremity swelling. This has resolved with IV furosemide and he appears to be euvolemic. * Increase furosemide to 60 mg daily on discharge * CHF counseling * Low-sodium diet * Daily weights * He can be discharged from the hospital from a cardiology standpoint. He should follow-up with his established accounting methods analyst. (2) Hypertension: Qualifiers: Hypertension type: unspecified Qualified Code(s): I10 - Essential (primary) hypertension Code(s): I10 - Essential (primary) hypertension Status: Chronic Assessment and Plan: Blood pressure is reasonably controlled. Continue current medical regimen. (3) Acute on chronic combined systolic and diastolic CHF (congestive heart failure): Code(s): I50.43 - Acute on chronic combined systolic (congestive) and diastolic (congestive) heart failure Status: Acute Assessment and Plan: Nonischemic cardiomyopathy, EF 30-35%. * Continue guideline directed medical therapy with Entresto, Coreg * Repeat echocardiogram is pending. He did wear a life vest at one point because of nonsustained VT, he should follow-up with his established accounting methods analyst (he tells me that he follows with a accounting methods analyst in [place] that cannot remember his name) to discuss titration of medical therapy and possible EP referral for ICD. (4) Stage 3b chronic kidney disease: Code(s): N18.32 - Chronic kidney disease, stage 3b Status: Chronic Assessment and Plan: Stable History of Present Illness History of Present Illness Consult date/time: 07/01/24 13:28 Requesting physician: Simran Trejo MD Consult reason: congestive heart failure Reason For Visit: hypertensive urgency/emergency; acute on chronic Narrative: Manuel Headley is a 39 year old male with nonischemic cardiomyopathy (EF 35 - 40%) and hypertension. This is a patient who was initially diagnosed with heart failure about two years ago and has had two recent hospitalizations at other hospitals for CHF exacerbation. He presents to the hospital now with shortness of breath. He has had progressive shortness of breath over the past couple of weeks as well as bilateral lower extremity edema. He tells me that he was discharged from the hospital a couple of months ago on a lower dose of furosemide then he ordinarily took. He has been compliant with his medications and has no major dietary changes. He has received IV furosemide and feels significantly better. He denies any shortness of breath, chest pain, palpitations, orthopnea and reports that his edema is significantly improved. Review of Systems 2 Review of Systems: All systems reviewed & are unremarkable except as noted in HPI and below [facility] Past Medical History Medical History Hypertensive cardiomyopathy Hypertensive kidney disease with CKD stage III Tobacco use Chronic renal failure Heart failure with reduced ejection fraction EF of 30 to 35% on echocardiogram in July 2021. Hypertension Surgical History Surgical History No history of previous surgery Family History Family History Father , at age 53. 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 He lives in [place], alone. He smokes about a pack a week and drinks on the weekends, approximately a few shots and a couple of beers. He also uses marijuana. His mother, Juanita Headley is his emergency contact. Smoking packs per day: 3 Smoking cigarettes per day: 60.0 Years smoked: 23 Smoking pack-years: 69.00 Smoking status: Current every day smoker Tobacco type: cigarettes Second hand tobacco smoke exposure: Yes Alcohol intake: never Alcohol use details: Drinks alcohol on the weekends Substance use: current Substance use type: marijuana Other substance usage details: 3 blunts a week Do You Feel Safe in your Home?: Yes Lack of Transportation: No Lack of Food: Never True Current Housing: I Have Housing Concerned About Future Housing: No Difficulty Paying Gas/Electric Bills: No Difficulty Paying for Meds: No Currently Unemployed: No Education: High School Diploma/GED Difficulty w/ Childcare or Family Care: No Living arrangements: with family Occupation/Education: occupation Spiritual care concerns: No Meds Home Medications and Allergies Home Medications ?Medication ?Instructions ?Recorded ?Confirmed ?Type carvedilol 25 mg tablet (Coreg) 25 mg PO Q12HR #60 tabs 12/06/23 06/30/24 Rx furosemide 40 mg tablet 40 mg PO DAILY #30 tabs 12/06/23 06/30/24 Rx nifedipine 30 mg tablet,extended 30 mg PO DAILY 30 days #30 tabs 12/06/23 06/30/24 Rx release 24 hr (Procardia XL) sacubitril 49 mg-valsartan 51 mg 1 tablet PO Q12HR 30 days #60 tabs 12/06/23 06/30/24 Rx tablet (Entresto) hydralazine 100 mg tablet 100 mg PO QID 06/30/24 06/30/24 History isosorbide dinitrate 30 mg tablet 30 mg PO QID 06/30/24 06/30/24 History Allergies Allergy/AdvReac Type Severity Reaction Status Date / Time No Known Allergies Allergy Verified 06/29/24 16:44 Vital Signs Vital Signs - 24 hr 06/30/24 13:33 06/30/24 13:34 06/30/24 13:47 Temperature Pulse Rate 71 68 76 Respiratory Rate 21 H 18 22 H Blood Pressure 151/118 H Pulse Oximetry 90 100 93 Oxygen Delivery 06/30/24 14:02 06/30/24 14:17 06/30/24 14:38 Temperature Pulse Rate 72 78 70 Respiratory Rate 22 H 25 H 27 H Blood Pressure Pulse Oximetry 95 97 96 Oxygen Delivery 06/30/24 14:45 06/30/24 15:03 06/30/24 16:15 Temperature 36.4 C Pulse Rate 61 76 80 Respiratory Rate 22 H 27 H 20 Blood Pressure 139/94 H Pulse Oximetry 90 97 Oxygen Delivery 06/30/24 18:00 06/30/24 20:00 06/30/24 20:00 Temperature Pulse Rate 81 85 Respiratory Rate Blood Pressure Pulse Oximetry Oxygen Delivery Room Air 06/30/24 20:03 06/30/24 21:09 06/30/24 22:00 Temperature 36.3 C L Pulse Rate 76 85 83 Respiratory Rate 18 Blood Pressure 147/99 H Pulse Oximetry 93 Oxygen Delivery 07/01/24 00:00 07/01/24 00:00 07/01/24 00:13 Temperature 37.0 C Pulse Rate 80 77 Respiratory Rate 18 Blood Pressure 148/97 H Pulse Oximetry 92 Oxygen Delivery Room Air 07/01/24 02:00 07/01/24 04:00 07/01/24 04:00 Temperature Pulse Rate 73 81 Respiratory Rate Blood Pressure Pulse Oximetry Oxygen Delivery Room Air 07/01/24 04:08 07/01/24 06:00 07/01/24 08:00 Temperature 36.6 C Pulse Rate 88 73 Respiratory Rate 18 Blood Pressure 141/91 H Pulse Oximetry 98 95 Oxygen Delivery Room Air 07/01/24 08:16 07/01/24 08:29 07/01/24 10:31 Temperature 36.8 C Pulse Rate 85 82 Respiratory Rate 20 Blood Pressure 165/116 H Pulse Oximetry 95 96 Oxygen Delivery Room Air 07/01/24 12:27 Temperature 36.7 C Pulse Rate 67 Respiratory Rate 18 Blood Pressure 147/93 H Pulse Oximetry 99 Oxygen Delivery Exam 2 Const: General: comfortable, no acute distress, alert and awake O rientation/consciousness: patient oriented x3 HENMT: Head: normal to inspection Eyes: General: appearance normal, both eyes and all related structures P upils: Equal, round and reactive pupils present Neck: Neck: normal visual inspection, supple and no JVD Carotids: normal carotid upstroke Resp: Effort & Inspection: normal respiratory effort Auscultation: clear to auscultation bilaterally Cardio: Rate: regular rate Rhythm: regular rhythm Heart sounds: S1 normal heart sound present, S2 normal heart sound present and no murmurs GI: Auscultation: normal bowel sounds Skin: General skin exam: normal color Neuro: General: patient oriented x3 Cranial nerves: Yes Equal, round and reactive pupils present Extrem: General: normal to inspection Psych: Appearance: grossly normal Mental Status: mental status grossly normal Results Labs and Meds 07/01/24 07:38 07/01/24 07:38 Lab results: Cardiac Enzymes 07/01/24 Range/Units 07:38 AST 23 (17-59) U/L CBC 07/01/24 Range/Units 07:38 WBC 5.8 (4.5-10.0) K/mm3 RBC 4.34 L (4.6-6.20) M/mm3 Hgb 11.1 L (14.0-18.0) g/dL Hct 35.8 L (42.0-52.0) % Plt Count 314 (150-375) k/mm3 Lymph # (Auto) 0.85 L (0.9-3.2) K/mm3 Saline # (Auto) 0.5 (0.1-0.6) K/mm3 Eos # (Auto) 0.2 (0-0.3) K/mm3 Baso # (Auto) 0.0 (0.0-0.1) K/mm3 Comprehensive Metabolic Panel 07/01/24 Range/Units 07:38 Sodium 137 (137-145) mmol/L Potassium 3.8 (3.4-5.0) mmol/L Chloride 105 (98-107) mmol/L Carbon Dioxide 26 (22-30) mmol/L BUN 34 H (9-20) mg/dL Creatinine 2.80 H (0.7-1.3) mg/dL Glucose 91 (65-110) mg/dL Calcium 8.3 L (8.4-10.2) mg/dL AST 23 (17-59) U/L ALT 27 (6-50) U/L Alkaline Phosphatase 99 (38-126) U/L Total Protein 7.0 (6.3-8.2) g/dL Albumin 3.0 L (3.5-5.1) g/dL Intake and Output 06/30/24 07/01/24 07/01/24 23:59 07:59 15:59 Intake Total 1260 240 Output Total 200 Balance 1260 -200 240 Intake: Oral 1260 240 Output: Urine 200 Other: # Unmeasured Voids 2 Patient Weight 07/01/24 23:59 Weight 101.5 kg
--- NOTE | 2024-07-01 13:45 | IVDEFINITY ---
Prior to administration of IV Definity the patient was educated on the risks and benefits of the imaging enhancing agent including potential adverse side effects. The patient verbalized understanding. Allergies were verified. No exclusion criteria were identified and at least one of the following inclusion criteria were met: 1) physician request, 2) patient technically difficult to image (per the [place] [employer]chocardi[employer] guidelines of two or more segments not discernable within the apical view), or 3) questionable left ventricular function. ?
--- NOTE | 2024-07-01 14:41 | PM.CNNEP ---
History of Present Illness Reason for Consult Consult date: 07/01/24 Reason for consult: acute renal failure (on chronic kidney disease) Chief Complaint Chief complaint: hypertensive urgency/emergency; acute on chronic Review of Systems Review of Systems: As per HPI. [facility] Past Medical History Medical History Hypertensive cardiomyopathy Hypertensive kidney disease with CKD stage III Tobacco use Chronic renal failure Heart failure with reduced ejection fraction EF of 30 to 35% on echocardiogram in July 2021. Hypertension Surgical History Surgical History No history of previous surgery Family History Family History Father , at age 53. 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 He lives in [place], alone. He smokes about a pack a week and drinks on the weekends, approximately a few shots and a couple of beers. He also uses marijuana. His mother, Junaita Headley is his emergency contact. Smoking packs per day: 3 Smoking cigarettes per day: 60.0 Years smoked: 23 Smoking pack-years: 69.00 Smoking status: Current every day smoker Tobacco type: cigarettes Second hand tobacco smoke exposure: Yes Alcohol intake: never Alcohol use details: Drinks alcohol on the weekends Substance use: current Substance use type: marijuana Other substance usage details: 3 blunts a week Do You Feel Safe in your Home?: Yes Lack of Transportation: No Lack of Food: Never True Current Housing: I Have Housing Concerned About Future Housing: No Difficulty Paying Gas/Electric Bills: No Difficulty Paying for Meds: No Currently Unemployed: No Education: High School Diploma/GED Difficulty w/ Childcare or Family Care: No Living arrangements: with family Occupation/Education: occupation Spiritual care concerns: No Meds Home Medications and Allergies Home Medications ?Medication ?Instructions ?Recorded ?Confirmed ?Type carvedilol 25 mg tablet (Coreg) 25 mg PO Q12HR #60 tabs 12/06/23 06/30/24 Rx furosemide 40 mg tablet 40 mg PO DAILY #30 tabs 12/06/23 06/30/24 Rx nifedipine 30 mg tablet,extended 30 mg PO DAILY 30 days #30 tabs 12/06/23 06/30/24 Rx release 24 hr (Procardia XL) sacubitril 49 mg-valsartan 51 mg 1 tablet PO Q12HR 30 days #60 tabs 12/06/23 06/30/24 Rx tablet (Entresto) hydralazine 100 mg tablet 100 mg PO QID 06/30/24 06/30/24 History isosorbide dinitrate 30 mg tablet 30 mg PO QID 06/30/24 06/30/24 History Allergies Allergy/AdvReac Type Severity Reaction Status Date / Time No Known Allergies Allergy Verified 06/29/24 16:44 Vital Signs Vital Signs Temp Pulse Resp BP Pulse Ox O2 Del Method 07/01/24 12:27 98.0 F 67 18 147/93 H 99 07/01/24 10:31 96 Room Air 07/01/24 08:29 98.3 F 82 20 165/116 H 95 07/01/24 08:16 85 07/01/24 08:00 85 07/01/24 08:00 95 Room Air 07/01/24 06:00 73 07/01/24 04:08 97.9 F 88 18 141/91 H 98 07/01/24 04:00 81 07/01/24 04:00 Room Air 07/01/24 02:00 73 07/01/24 00:13 98.6 F 77 18 148/97 H 92 07/01/24 00:00 80 07/01/24 00:00 Room Air 06/30/24 22:00 83 06/30/24 21:09 85 06/30/24 20:03 97.4 F L 76 18 147/99 H 93 06/30/24 20:00 85 06/30/24 20:00 Room Air Results Lab Results 07/01/24 07:38 07/01/24 07:38 Lab results: Most recent lab results ABG pH 7.399 (7.350-7.450) 06/29/24 21:51 ABG pCO2 35.9 mmHg (35.0-45.0) 06/29/24 21:51 ABG pO2 53.1 mmHg (80.0-100.0) L 06/29/24 21:51 ABG HCO3 21.7 mEq/l (22.0-26.0) L 06/29/24 21:51 ABG O2 Saturation 87.8 % (95.0-100.0) L* 06/29/24 21:51 Calcium 8.3 mg/dL (8.4-10.2) L 07/01/24 07:38 Phosphorus 3.1 mg/dL (2.5-4.5) 07/01/24 07:38 Magnesium 2.0 mg/dL (1.6-2.3) 07/01/24 07:38
--- NOTE | 2024-07-01 16:55 | PC.NURSE ---
This patient, Manuel Headley, was transferred to [facility] on 07/01/24 at 1655. Personal belongings sent with patient. Report given to CURLY Reza. Appropriate documentation sent with patient.
[2024-07-02 06:30] VITALS: BP 150/98; PULSE 65; RESP 14; TEMP 36.9; O2SAT 100
[2024-07-02 08:00] VITALS: BP 137/85; PULSE 68; RESP 18; TEMP 36.6; O2SAT 99
[2024-07-02 08:49] LABS: Basophils Percent Auto 0.8 % (0.2-1.2); Eosinophils Absolute Auto 0.2 K/mm3 (0-0.3); Eosinophils Percent Auto 4.4 % (0-4.4); Hematocrit 37.9 % (42.0-52.0); Hemoglobin 11.5 g/dL (14.0-18.0); Immature Granulocyte Absolute 0.01 K/mm3 (0.00-0.031); Immature Granulocyte Percent A 0.2 % (0-0.5); Lymphocytes Absolute Auto 1.22 K/mm3 (0.9-3.2); Lymphocytes Percent Auto 24.4 % (18.3-44.2); Mean Corpuscular HGB Conc 30.3 g/dl (32-36); Mean Corpuscular Hemoglobin 25.3 pg (26-34); Mean Corpuscular Volume 83.3 fl (80-100); Mean Platelet Volume 9.5 fl (7.4-10.4); Monocytes Absolute Auto 0.5 K/mm3 (0.1-0.6); Monocytes Percent Auto 9.8 % (2.6-8.5); Neutrophils Percent Auto 60.4 % (45.5-73.1); Platelet Count Result 298 k/mm3 (150-375); Red Blood Count 4.55 M/mm3 (4.6-6.20); Red Cell Distribution Width 18.9 % (11.5-14.5)
[2024-07-02 09:07] LABS: Albumin Level 2.9 g/dL (3.5-5.1); Anion Gap 6 mmol/L (4-12); Blood Urea Nitrogen 31 mg/dL (9-20); Calcium 8.2 mg/dL (8.4-10.2); Carbon Dioxide 26 mmol/L (22-30); Chloride 105 mmol/L (98-107); Estimated CRCL calculation 43 ml/min; Estimated Glomerular Filt Rate 34; Glucose 82 mg/dL (65-110); Phosphorus 3.5 mg/dL (2.5-4.5); Sodium 137 mmol/L (137-145)
--- NOTE | 2024-07-02 09:10 | PM.IMPN ---
Progress Note: A&P Assessment and Plan (1) Hypertensive emergency: Code(s): I16.1 - Hypertensive emergency Status: Acute (2) Hypertensive heart failure: Code(s): I11.0 - Hypertensive heart disease with heart failure Status: Acute (3) Acute on chronic combined systolic and diastolic CHF (congestive heart failure): Code(s): I50.43 - Acute on chronic combined systolic (congestive) and diastolic (congestive) heart failure Status: Acute (4) Elevated troponin: Code(s): R77.8 - Other specified abnormalities of plasma proteins Status: Acute (5) Non-ST elevation GA (NSTEMI): Code(s): I21.4 - Non-ST elevation (NSTEMI) myocardial infarction Status: Acute (6) Chest pain: Code(s): R07.9 - Chest pain, unspecified Status: Acute (7) Acute kidney injury superimposed on stage 4 chronic kidney disease: Code(s): N17.9 - Acute kidney failure, unspecified; N18.4 - Chronic kidney disease, stage 4 (severe) Status: Acute (8) Normocytic anemia: Code(s): D64.9 - Anemia, unspecified Status: Acute (9) Tobacco use: Code(s): Z72.0 - Tobacco use Status: Acute Plan Acute on chronic combined heart failure Patient has history of chronic systolic diastolic heart failure Exacerbation likely secondary to uncontrolled hypertension and possible noncompliance with medication Switch from over Lasix to IV Lasix 40 mg b.i.d. IV push, Entresto 1 tab b.i.d. Repeat echocardiogram with EF 30-35% grade 3 diastolic dysfunction of the left ventricle right ventricular with normal size with reduced systolic function. Severe biatrial enlargement. No significant valvular disease. Suggestive of nonischemic cardiomyopathy. He had LifeVest at some point. Cardiology consulted. Follow up with operations logistics analyst outpatient basis. Hypertension emergency Upon arrival to ED, patient was found have uncontrolled hypertension, blood pressure 186/143, tachypnea, tachycardia, Hypertension induced acute heart failure and elevated troponin indicating heart muscle injury Continue carvedilol 25 mg b.i.d. p.o. hydralazine 100 mg q.i.d. p.o. nifedipine 30 mg daily p.o. isobide 30 mg q.i.d. p.o. Start hydralazine 10 mg q.4 p.r.n. with parameters In the ED patient also received labetalol and hydralazine IV Blood pressure is better control Consult operations logistics analyst for evaluation treatment now BP is better controlled NSTEMI Patient has shortness breath and chest pain elevated troponin x2 trending up, EKG showed sinus tachycardia, tachycardia 104, no specific ST or T-wave changes. Suspecting demand ischemia due to uncontrolled blood pressure and heart failure Echocardiogram as noted above. Received aspirin 324 mg once, continue aspirin 81 mg daily p.o. Telemetry monitoring Further workup and treatment operations logistics analyst MIHAI on CKD Worsening kidney function will baseline. Admission creatinine of 3.2 Possible due to uncontrolled hypertension, cardiorenal syndrome Follow urinalysis: 4+ protein, renal ultrasound: Echogenic kidneys, consistent with nonspecific nephropathy. Consult joint setter for evaluation treatment Renal function is improving down to almost baseline. Chronic anemia Likely secondary to CKD Follow-up ferritin and iron panel Follow-up CBC Community acquired pneumonia Chest x-ray showed cardiomegaly, increased opacity within the right upper lobe, suspecting early infiltrate Received doxycycline and ceftriaxone ED Possible atypical pneumonia Continue doxy and ceftriaxone IV as ordered Subjective Date/time seen: 07/02/24 09:10 Interval history: Chart reviewed. No overnight events. Creatinine is down to 2.5. Baseline creatinine around low 2s previous records reviewed. Admission creatinine of 3.2. Mildly elevated flat troponin BNP [id number]. Procalcitonin 0.3. UA is negative. UDS positive for cannabinoids. Renal ultrasound with echogenic kidneys consistent with nonspecific nephropathy small volume of ascites. Chest x-ray with early right upper lobe infiltrate. Echo with EF 30-35% severe concentric left ventricular hypertrophy. Grade 3 diastolic dysfunction of the left ventricle. Reduced systolic function right ventricle. Severe biatrial enlargement. No significant valvular disease. Cardiology consultation obtained. Patient Is doing well and feels great. Blood pressure controlled. No shortness of breath or chest pain. Review of Systems Review of Systems: All systems reviewed & are unremarkable except as noted in HPI and below Exam Narrative: GENERAL: Well-appearing, in no acute distress. Well-nourished. - EYES: EOMI. Anicteric. - HENT: Moist mucous membranes. - LUNGS: Coarse breath sound bilaterally, crackles bilateral base, no wheezing, rhonchi, - CARDIOVASCULAR: Regular rate and rhythm. No murmur. No JVD. - ABDOMEN: Soft, non-tender and non-distended. No palpable masses. - EXTREMITIES: 1+ edema lower extremity Peripheral pulses 2+. Non-tender. - NEUROLOGIC: No focal neurological deficits. CN II-XII grossly intact. - PSYCHIATRIC: Awake, Alert and oriented x 3. Appropriate mood and affect. - SKIN: No rashes or lesions. Warm. - LYMPH: No cervical lymphadenopathy. Objective Data Vital Signs Vital Signs: Vital Signs - 24 hr 07/01/24 10:31 07/01/24 12:27 07/01/24 16:00 Temperature 98.0 F 97.6 F Pulse Rate 67 68 Respiratory Rate 18 18 Blood Pressure 147/93 H 133/93 H Pulse Oximetry 96 99 95 Oxygen Delivery Room Air 07/01/24 20:00 07/01/24 20:07 07/01/24 21:36 Temperature 98.0 F Pulse Rate 70 72 Respiratory Rate 16 Blood Pressure 139/88 Pulse Oximetry 94 Oxygen Delivery Room Air 07/02/24 06:30 Temperature 98.4 F Pulse Rate 65 Respiratory Rate 14 Blood Pressure 150/98 H Pulse Oximetry 100 Oxygen Delivery Intake/Output Intake/Output: Intake & Output 06/29/24 06/30/24 07/01/24 07/02/24 23:59 23:59 23:59 23:59 Intake Total 1510 530 500 Output Total 1600 1100 Balance -90 -570 500 Meds/Results Medications: Active Medications Generic Name Dose Route Start Last Admin Trade Name Freq PRN Reason Stop Dose Admin Acetaminophen 650 mg 06/30/24 00:38 Acetaminophen 325 Mg Tablet PO Q4H PRN Mild Pain (1-3) or Fever Carvedilol 25 mg 06/30/24 09:00 07/01/24 20:07 Carvedilol 25 Mg Tablet PO 25 mg Q12HR MEENA Administration Doxycycline Hyclate 100 mg 06/30/24 12:00 07/01/24 20:13 Doxycycline Hyclate 100 Mg Tablet PO 100 mg Q12HR MEENA Administration Furosemide 40 mg 06/30/24 09:00 07/01/24 16:34 Furosemide Inj 40 Mg/4 Ml Vial IV PUSH 40 mg BID MEENA Administration Hydralazine HCl 20 mg 06/30/24 04:29 Hydralazine Hcl 20 Mg/Ml Vial IV PUSH Q4H PRN SBP greater than 160 Hydralazine HCl 100 mg 06/30/24 13:00 07/01/24 20:06 Hydralazine Hcl 50 Mg Tablet PO 100 mg QID MEENA Administration Ceftriaxone Sodium 2 gm in 100 mls @ 200 mls/hr 06/30/24 12:00 07/01/24 12:47 Rocephin 2 Gm/Ns 100 Ml IVPB 200 mls/hr Q24H MEENA Administration Isosorbide Dinitrate 30 mg 06/30/24 13:00 07/01/24 20:55 Isosorbide Dinitrate 10 Mg Tablet PO 30 mg QID MEENA Administration Metoprolol Tartrate 10 mg 06/30/24 04:29 Metoprolol Tartrate Inj 5 Mg/5 Ml Vial IV PUSH Q6H PRN SBP greater than 160 Nifedipine 30 mg 07/01/24 09:00 07/01/24 08:16 Nifedipine 30 Mg Tab.Er.24 PO 30 mg DAILY MEENA Administration Ondansetron HCl 4 mg 06/30/24 00:38 Ondansetron Inj 4 Mg/2 Ml Vial IV PUSH Q4H PRN Nausea Sacubitril/Valsartan 1 tablet 06/30/24 21:00 07/01/24 20:06 Sacubitril/Valsartan 49-51 Mg Tablet PO 1 tablet Q12HR MEENA Administration Radiology Results: ITS Impressions Chest X-Ray 06/29/24 16:33 IMPRESSION: Early right upper lobe infiltrate. Renal Ultrasound 06/30/24 12:26 IMPRESSION: 1. Echogenic kidneys, consistent with nonspecific nephropathy. 2. Small volume of ascites. Labs Labs: Laboratory Results - last 24 hr 07/02/24 08:22 WBC 5.0 RBC 4.55 L Hgb 11.5 L Hct 37.9 L MCV 83.3 MCH 25.3 L MCHC 30.3 L RDW 18.9 H Plt Count 298 MPV 9.5 Immature Gran % (Auto) 0.2 Neut % (Auto) 60.4 Lymph % (Auto) 24.4 [place] % (Auto) 9.8 H Eos % (Auto) 4.4 Baso % (Auto) 0.8 Lymph # (Auto) 1.22 [place] # (Auto) 0.5 Eos # (Auto) 0.2 Baso # (Auto) 0.0 Abs Immat Gran (auto) 0.01 Absolute Neuts (auto) 3.0 Absolute Nucleated RBC 0.000 Nucleated RBC % 0.0 Sodium 137 Potassium 4.0 Chloride 105 Carbon Dioxide 26 Anion Gap 6 BUN 31 H Creatinine 2.56 H Estim Creat Clear Calc 43 Estimated GFR 34 L Glucose 82 Calcium 8.2 L Phosphorus 3.5 Albumin 2.9 L
[2024-07-02] MEDS: NIFEdipine 30 MG TAB.ER.24 PO (09:18)
[2024-07-02 09:19] VITALS: PULSE 70
[2024-07-02] MEDS: carvediloL 25 MG TABLET PO (09:19)
[2024-07-02] MEDS: FUROSEMIDE INJ 40 MG/4 ML VIAL IV PUSH (09:19)
[2024-07-02] MEDS: SACUBITRIL/VALSARTAN 49-51 MG TABLET 1 TABLET PO (09:19)
[2024-07-02] MEDS: ISOSORBIDE DINITRATE 10 MG TABLET 30 MG PO ×2 (09:19→12:04)
[2024-07-02] MEDS: hydrALAZINE HCL 50 MG TABLET 100 MG PO ×2 (09:19→12:04)
[2024-07-02] MEDS: DOXYCYCLINE HYCLATE 100 MG TABLET PO (09:19)
--- NOTE | 2024-07-02 10:06 | P.PNNP_ITS ---
Progress Note: A&P Assessment and Plan (1) Stage 3b chronic kidney disease: Code(s): N18.32 - Chronic kidney disease, stage 3b Status: Chronic Assessment and Plan: * creatinine running ~ 1.9 - 2.2mg/dl since 2021 with some degree of CKD progression noted given fluctuations noted with acute hospitalizations... * 2.6mg/dl on discharge from November 2023 hospitalization her at [facility] * 3.2mg/dl on discharge from [facility] on 05/25/24 * creatinine clearance of 40cc/min with a creatinine of 3.3mg/dl by 24 hour urine collection on 05/23/24 * 3.5mg/dl on discharge from [facility] at at that time * due to poorly controlled hypertension and his known cardiomyopathy/depressed EF and necessity of chronic diuretic therapy (and associated acute hospitalizations for decompensated heart failure and need for IV diuretic therapy) * sees Nephrology with acute hospitalizations but not sure if he sees anybody on an outpatient basis (2) Acute on chronic combined systolic and diastolic CHF (congestive heart failure): Code(s): I50.43 - Acute on chronic combined systolic (congestive) and diastolic (congestive) heart failure Status: Acute Assessment and Plan: Patient has history of chronic systolic diastolic heart failure Exacerbation likely secondary to uncontrolled hypertension and possible noncompliance with medication Switch from over Lasix to IV Lasix 40 mg b.i.d. IV push, Entresto 1 tab b.i.d. Repeat echocardiogram with EF 30-35% grade 3 diastolic dysfunction of the left ventricle right ventricular with normal size with reduced systolic function. Severe biatrial enlargement. No significant valvular disease. Suggestive of nonischemic cardiomyopathy. He had LifeVest at some point. Cardiology consulted. Follow up with crm campaign manager outpatient basis. (3) Hypertension: Qualifiers: Hypertension type: unspecified Qualified Code(s): I10 - Essential (primary) hypertension Code(s): I10 - Essential (primary) hypertension Status: Chronic Assessment and Plan: * Upon arrival to ED, patient was found have uncontrolled hypertension, blood pressure 186/143, tachypnea, tachycardia, Hypertension induced acute heart failure and elevated troponin indicating heart muscle injury Continue carvedilol 25 mg b.i.d. p.o. hydralazine 100 mg q.i.d. p.o. nifedipine 30 mg daily p.o. isobide 30 mg q.i.d. p.o. Start hydralazine 10 mg q.4 p.r.n. with parameters In the ED patient also received labetalol and hydralazine IV Blood pressure is better control Consult crm campaign manager for evaluation treatment now BP is better controlled * poor control at baseline noted with zack previous hospitalizations at various institutions ([facility], [facility]. [facility], [facility]...etc) * previous imaging (renal duplex) without evidence of GRADY * follow trend of BP readings (4) Anemia: Code(s): D64.9 - Anemia, unspecified Status: Acute Assessment and Plan: Likely secondary to CKD Follow-up ferritin and iron panel Follow-up CBC (5) Pneumonia: Code(s): J18.9 - Pneumonia, unspecified organism Status: Acute Assessment and Plan: Chest x-ray showed cardiomegaly, increased opacity within the right upper lobe, suspecting early infiltrate Received doxycycline and ceftriaxone ED Possible atypical pneumonia Continue doxy and ceftriaxone IV as ordered (6) Elevated troponin: Code(s): R77.8 - Other specified abnormalities of plasma proteins Status: Acute Assessment and Plan: Patient has shortness breath and chest pain elevated troponin x2 trending up, EKG showed sinus tachycardia, tachycardia 104, no specific ST or T-wave changes. Suspecting demand ischemia due to uncontrolled blood pressure and heart failure Echocardiogram as noted above. Received aspirin 324 mg once, continue aspirin 81 mg daily p.o. Telemetry monitoring Further workup and treatment crm campaign manager Subjective Date/time seen: 07/02/24 10:06 Interval history: Follow-up for chronic kidney disease. Overall, the patient feels quite well at the time of my visit; swelling/edema have improved and reports that his breathing/respiratory status is back to baseline; renal function/creatinine have improved close to baseline despite need for diuresis since admission; no other issues/events overnight or earlier this morning. Exam 2 Narrative: General: WD/WN male in NAD Heart: normal S1 and S2; no rub Lungs: clear anteriorly; decreased at bases with occassional crackles Abdomen: soft, nontender, nondistended, positive bowel sounds Extremities: no cyanosis or clubbing; trace - 1+ edema Skin: warm and dry Objective Data Vital Signs Vital Signs: Vital Signs Temp Pulse Resp BP Pulse Ox O2 Del Method 07/02/24 09:19 70 07/02/24 08:00 97.9 F 68 18 137/85 99 07/02/24 06:30 98.4 F 65 14 150/98 H 100 07/01/24 21:36 98.0 F 72 16 139/88 94 07/01/24 20:07 70 07/01/24 20:00 Room Air 07/01/24 16:00 97.6 F 68 18 133/93 H 95 Intake/Output Intake/Output: Intake & Output 06/29/24 06/30/24 07/01/24 07/02/24 23:59 23:59 23:59 23:59 Intake Total 4678 771 5159 Output Total 1600 1100 Balance -90 -470 1080 Meds/Results Medications: Active Medications Generic Name Dose Route Start Last Admin Trade Name Freq PRN Reason Stop Dose Admin Acetaminophen 650 mg 06/30/24 00:38 Acetaminophen 325 Mg Tablet PO Q4H PRN Mild Pain (1-3) or Fever Carvedilol 25 mg 06/30/24 09:00 07/02/24 09:19 Carvedilol 25 Mg Tablet PO 25 mg Q12HR MEENA Administration Doxycycline Hyclate 100 mg 06/30/24 12:00 07/02/24 09:19 Doxycycline Hyclate 100 Mg Tablet PO 100 mg Q12HR MEENA Administration Furosemide 40 mg 06/30/24 09:00 07/02/24 09:19 Furosemide Inj 40 Mg/4 Ml Vial IV PUSH 40 mg BID MEENA Administration Hydralazine HCl 20 mg 06/30/24 04:29 Hydralazine Hcl 20 Mg/Ml Vial IV PUSH Q4H PRN SBP greater than 160 Hydralazine HCl 100 mg 06/30/24 13:00 07/02/24 12:04 Hydralazine Hcl 50 Mg Tablet PO 100 mg QID MEENA Administration Ceftriaxone Sodium 2 gm in 100 mls @ 200 mls/hr 06/30/24 12:00 07/02/24 12:30 Rocephin 2 Gm/Ns 100 Ml IVPB Infused Q24H MEENA Infusion Isosorbide Dinitrate 30 mg 06/30/24 13:00 07/02/24 12:04 Isosorbide Dinitrate 10 Mg Tablet PO 30 mg QID MEENA Administration Metoprolol Tartrate 10 mg 06/30/24 04:29 Metoprolol Tartrate Inj 5 Mg/5 Ml Vial IV PUSH Q6H PRN SBP greater than 160 Nifedipine 30 mg 07/01/24 09:00 07/02/24 09:18 Nifedipine 30 Mg Tab.Er.24 PO 30 mg DAILY MEENA Administration Ondansetron HCl 4 mg 06/30/24 00:38 Ondansetron Inj 4 Mg/2 Ml Vial IV PUSH Q4H PRN Nausea Sacubitril/Valsartan 1 tablet 06/30/24 21:00 07/02/24 09:19 Sacubitril/Valsartan 49-51 Mg Tablet PO 1 tablet Q12HR MEENA Administration Radiology Results: ITS Impressions Chest X-Ray 06/29/24 16:33 IMPRESSION: Early right upper lobe infiltrate. Renal Ultrasound 06/30/24 12:26 IMPRESSION: 1. Echogenic kidneys, consistent with nonspecific nephropathy. 2. Small volume of ascites. Labs Labs: Laboratory Tests 07/02/24 08:22 07/02/24 08:22 Calcium 8.2 L Phosphorus 3.5 Magnesium 2.0 Albumin 2.9 L Attestation Student Attestation Acute on chronic combined heart failure Hypertension emergency NSTEMI MIHAI on CKD Worsening kidney function will baseline. Admission creatinine of 3.2 Possible due to uncontrolled hypertension, cardiorenal syndrome Follow urinalysis: 4+ protein, renal ultrasound: Echogenic kidneys, consistent with nonspecific nephropathy. Consult telegraph office telephone clerk for evaluation treatment Renal function is improving down to almost baseline. Chronic anemia Community acquired pneumonia
[2024-07-02] MEDS: cefTRIAXone 2 GM/NS 100 ML 2 GM/100 ML BAG IVPB (12:04)
--- NOTE | 2024-07-02 13:22 | P.DS_ITS ---
DS: Admitting Diagnosis Discharge Date 07/02/2024 Admitting Diagnosis Shortness of breath DS: Discharge Diagnosis Discharge Diagnosis (1) Hypertensive emergency: Code(s): I16.1 - Hypertensive emergency Status: Acute (2) Hypertensive heart failure: Code(s): I11.0 - Hypertensive heart disease with heart failure Status: Acute (3) Acute on chronic combined systolic and diastolic CHF (congestive heart failure): Code(s): I50.43 - Acute on chronic combined systolic (congestive) and diastolic (congestive) heart failure Status: Acute (4) Elevated troponin: Code(s): R77.8 - Other specified abnormalities of plasma proteins Status: Acute (5) Non-ST elevation MN (NSTEMI): Code(s): I21.4 - Non-ST elevation (NSTEMI) myocardial infarction Status: Acute (6) Chest pain: Code(s): R07.9 - Chest pain, unspecified Status: Acute (7) Acute kidney injury superimposed on stage 4 chronic kidney disease: Code(s): N17.9 - Acute kidney failure, unspecified; N18.4 - Chronic kidney disease, stage 4 (severe) Status: Acute (8) Normocytic anemia: Code(s): D64.9 - Anemia, unspecified Status: Acute (9) Tobacco use: Code(s): Z72.0 - Tobacco use Status: Acute DS: Summary Hospital Course Hospital Course: # Acute on chronic combined heart failure Patient has history of chronic systolic diastolic heart failure Exacerbation likely secondary to uncontrolled hypertension and possible noncomp liance with medication Switch from over Lasix to IV Lasix 40 mg b.i.d. IV push, Entresto 1 tab b.i.d. Repeat echocardiogram with EF 30-35% grade 3 diastolic dysfunction of the left ventricle right ventricular with normal size with reduced systolic function. Severe biatrial enlargement. No significant valvular disease. Suggestive of nonischemic cardiomyopathy. He had LifeVest at some point. Cardiology consulted. Follow up with barrow worker helper outpatient basis. Stag Hypertension emergency Upon arrival to ED, patient was found have uncontrolled hypertension, blood pressure 186/143, tachypnea, tachycardia, Hypertension induced acute heart failure and elevated troponin indicating heart muscle injury Continue carvedilol 25 mg b.i.d. p.o. hydralazine 100 mg q.i.d. p.o. nifedipine 30 mg daily p.o. isobide 30 mg q.i.d. p.o. Start hydralazine 10 mg q.4 p.r.n. with parameters In the ED patient also received labetalol and hydralazine IV Blood pressure is better control Consult barrow worker helper for evaluation treatment now BP is better controlled # NSTEMI Patient has shortness breath and chest pain elevated troponin x2 trending up, EKG showed sinus tachycardia, tachycardia 104, no specific ST or T-wave changes. Suspecting demand ischemia due to uncontrolled blood pressure and heart failure Echocardiogram as noted above. Received aspirin 324 mg once, continue aspirin 81 mg daily p.o. Telemetry monitoring Further workup and treatment barrow worker helper # MIHAI on CKD Worsening kidney function will baseline. Admission creatinine of 3.2 Possible due to uncontrolled hypertension, cardiorenal syndrome Follow urinalysis: 4+ protein, renal ultrasound: Echogenic kidneys, consistent with nonspecific nephropathy. Consult care program resident for evaluation treatment Renal function is improving down to almost baseline. # Chronic anemia Likely secondary to CKD Follow-up ferritin and iron panel Follow-up CBC # Community acquired pneumonia Chest x-ray showed cardiomegaly, increased opacity within the right upper lobe, suspecting early infiltrate Received doxycycline and ceftriaxone ED Possible atypical pneumonia. Switch to oral at discharge Time Spent with Patient Time attestation: Total time spent providing and/or coordinating discharge services: 45 minutes Exam Narrative: GENERAL: Well-appearing, in no acute distress. Well-nourished. - EYES: EOMI. Anicteric. - HENT: Moist mucous membranes. - LUNGS: Coarse breath sound bilaterall y, crackles bilateral base, no wheezing, rhonchi, - CARDIOVASCULAR: Regular rate and rhyth m. No murmur. No JVD. - ABDOMEN: Soft, non-tender and non-dist ended. No palpable masses. - EXTREMITIES: 1+ edema lower extremity Peripheral pulses 2+. Non-tender. - NEUROLOGIC: No focal neurological defi cits. CN II-XII grossly intact. - PSYCHIATRIC: Awake, Alert and oriented x 3. Appropriate mood and affect. - SKIN: No rashes or lesions. Warm. - LYMPH: No cervical lymphadenopathy. DS: Data Data Completed and Pending Completed studies during hospitalization: Exam Type: CA echo dop color flow w con Study Info Indications - ACUTE HEART FAILURE Complete two-dimensional, color flow and Doppler transthoracic echocardiogram is performed with contrast to opacify the left ventricle and to improve the deliniation of the left ventricle endocardial borders. Contrast/Agitated Saline Contrast/Ag. Saline: Definity Amount: 2.00 ml Existing IV Access: Yes Summary 1. The left ventricle is normal size. There is severe concentric left ventricular hypertrophy. The left ventricular ejection fraction is visually estimated to be 30-35%. 2. Grade III diastolic dysfunction of the left ventricle (restrictive filling pattern). 3. The right ventricle is normal size with reduced systolic function. 4. There is severe biatrial enlargement. 5. No significant valvular disease in this study. 6. Consider infiltrative cardiomyopathy workup. Left Ventricle The left ventricle is normal size. There is severe concentric left ventricular hypertrophy. The left ventricular ejection fraction is visually estimated to be 30-35%. Grade III diastolic dysfunction of the left ventricle (restrictive filling pattern). Right Ventricle The right ventricle is normal size with reduced systolic function. Left Atria The left atrium is severely dilated. Right Atria The right atrium is severely dilated. Atrial Septum The atrial septum visually appears intact. Aortic Valve The aortic valve is trileaflet and opens well. There is no aortic regurgitation. Pulmonic Valve The pulmonic valve is normal. There is no pulmonic valve regurgitation. Mitral Valve The mitral valve is normal. There is no mitral regurgitation. Tricuspid Valve The tricuspid valve is normal. There is no tricuspid regurgitation. Inferior Vena Cava Dilated inferior vena cava with <50% collapse upon inspiration consistent with significantly elevated right atrial pressure, 15 mmHg. Dilated inferior vena cava with <50% collapse upon inspiration consistent with significantly elevated right atrial pressure, 15 mmHg. Aorta The aortic root at the level of the sinus of Valsalva measures 3.8 cm in diameter. Labs on day of discharge: Labs from last 24 hours 07/02/24 08:22 WBC 5.0 RBC 4.55 L Hgb 11.5 L Hct 37.9 L MCV 83.3 MCH 25.3 L MCHC 30.3 L RDW 18.9 H Plt Count 298 MPV 9.5 Immature Gran % (Auto) 0.2 Neut % (Auto) 60.4 Lymph % (Auto) 24.4 Schley % (Auto) 9.8 H Eos % (Auto) 4.4 Baso % (Auto) 0.8 Lymph # (Auto) 1.22 Schley # (Auto) 0.5 Eos # (Auto) 0.2 Baso # (Auto) 0.0 Abs Immat Gran (auto) 0.01 Absolute Neuts (auto) 3.0 Absolute Nucleated RBC 0.000 Nucleated RBC % 0.0 Sodium 137 Potassium 4.0 Chloride 105 Carbon Dioxide 26 Anion Gap 6 BUN 31 H Creatinine 2.56 H Estim Creat Clear Calc 43 Estimated GFR 34 L Glucose 82 Calcium 8.2 L Phosphorus 3.5 Magnesium 2.0 Albumin 2.9 L Imaging Radiologist's impression: ITS Impressions Chest X-Ray 06/29/24 16:33 IMPRESSION: Early right upper lobe infiltrate. Renal Ultrasound 06/30/24 12:26 IMPRESSION: 1. Echogenic kidneys, consistent with nonspecific nephropathy. 2. Small volume of ascites. Discharge Plan Discharge Attending physician on discharge: Gm Elkins Consulting providers: Amauri Lees; Lula Karimi Discharging Clinician: Gm Elkins Anticipated Discharge Date/Time: 07/02/24 13:24 Patient Disposition: Home, Self-Care Activity: as tolerated Diet: heart healthy and renal Discharge Instructions: Follow-up with barrow worker helper in 1-2 weeks. Call for appointment. Patient Instructions: Antibiotic Form, Heart Failure (GEN) Patient Language: Frisian Stand Alone Forms: General Discharge Information Follow-up/Referrals: Amauri Lees MD [Physician] - 2 Weeks Macario Marcum MD [Primary Care Provider] - 1 Week Discharge Medications: New doxycycline hyclate 100 mg Tablet 100 mg PO Q12HR Qty: 8 0RF cefdinir 300 mg capsule 300 mg PO BID Qty: 6 0RF Continued sacubitril-valsartan [Entresto] 49-51 mg Tablet 1 tablet PO Q12HR 30 Days Qty: 60 0RF isosorbide dinitrate 30 mg tablet 30 mg PO QID Qty: 120 0RF carvedilol [Coreg] 25 mg Tablet 25 mg PO Q12HR Qty: 60 0RF nifedipine [Procardia XL] 30 mg Tablet Extended Release 24hr 30 mg PO DAILY 30 Days Qty: 30 0RF hydralazine 100 mg tablet 100 mg PO QID Qty: 120 0RF Changed furosemide 40 mg Tablet 60 mg PO DAILY Qty: 45 0RF Other Ambulatory Orders: Basic Metabolic Panel (Routine) Timeframe: 1 Week Location: Determined by Patient Ordered By: Gm Elkins Date of admission: 06/30/24 10:11 Primary Care Provider: Macario Marcum Admitting Provider: Mariam Beaulieu Attending physician on admission: Mariam Beaulieu Condition: Stable
[2024-07-02 14:25] VITALS: BP 136/92; PULSE 74; RESP 14; TEMP 36.5; O2SAT 97
== END 2024-07-02 16:09 | disposition home or self-care (01) | DRG 199 ==
LOC: ANHED 06-30 00:41 → ANHIMU 06-30 01:23 → ANH2MED 07-01 16:54
PROVIDERS: Family Medicine; Internal Medicine Nephrology; Registered Nurse; Admitting Provider Internal Medicine; Emergency Provider Student in an Organized Health Care Education/Training Program; PCP Family Medicine; Visit Provider Internal Medicine
DX: I16.1 Hypertensive emergency (principal); I13.0 Hypertensive heart and chronic kidney disease with heart failure and stage 1 through stage 4 chronic kidney disease, or unspecified chronic kidney disease; N18.4 Chronic kidney disease, stage 4 (severe); I50.43 Acute on chronic combined systolic (congestive) and diastolic (congestive) heart failure; I21.4 Non-ST elevation (NSTEMI) myocardial infarction; N17.9 Acute kidney failure, unspecified; D63.1 Anemia in chronic kidney disease; F17.210 Nicotine dependence, cigarettes, uncomplicated; I21.A1 Myocardial infarction type 2; J18.9 Pneumonia, unspecified organism; N18.32 Chronic kidney disease, stage 3b; Z91.148 Patient's other noncompliance with medication regimen for other reason; Z20.822 Contact with and (suspected) exposure to COVID-19; Z28.21 Immunization not carried out because of patient refusal
CPT/HCPCS: 36415; 36600; 71046; 76775; 80053; 80069; 80307; 81001; 82805; 83735; 83880; 84100; 84145; 84484; 85018; 85025; 85610; 85730; 87637; 93005; 96365; 96367; 96374; 96375; 96376; 99285; A9270; C8929; G0378; J0360; J0696; J1940; Q9957

== ENCOUNTER 2025-03-26 01:11 | Emergency (ER) | payer MEDICAID, SELFPAY ==
--- NOTE | 2025-03-26 | ECG_ITS ---
Test Date: 2025-03-26 07:03:44 Measurements Intervals [place] Rate: 104 P: 59 [place]: 183 QRS: 19 QRSD: 105 T: 66 QT: 360 QTc: 474 Interpretive Statements SINUS TACHYCARDIA POSSIBLE RIGHT VENTRICULAR CONDUCTION DELAY [RSR (QR) IN V1/V2] Compared to ECG 06/30/2024 00:45:42 Sinus rhythm no longer present Left-axis deviation no longer present Atrial abnormality no longer present Electronically Signed On 03-26-2025 12:03:40 CDT by Julio Cornejo M.D.
--- NOTE | ~2025-03-26 | CT_ITS ---
EXAMINATION: CTA brain carotid DATE: 03/26/2025 01:33 INDICATION: Right hemiparesis. Cerebrovascular accident. TECHNIQUE: Computed tomographic angiography (CTA) of the head was performed with 100 mL Omnipaque-350 intravenous contrast. CTA of the neck was performed with intravenous contrast. Automated exposure control and iterative reconstruction technique were employed. The dose-length product was 1070.94 mGy-cm. Maximum intensity projection and volume rendered 3D-reconstructions were created by the technologist on a separate workstation. COMPARISON: Head CT 03/26/2025 FINDINGS: HEAD CTA: There are scattered areas of low attenuation in the cerebral white matter. There is acute hematoma in the left thalamus and the lateral, third, and fourth ventricles. There is an infarct in left frontal lobe. There is an infarct involving the right thalamus, right basal ganglia, and posterior limb right internal capsule. There is an old infarct in the left parietal lobe. There is no abnormal mass lesion. There is enlargement of the temporal horns of the lateral ventricles. The orbits are normal. There is mild mucosal thickening in the paranasal sinuses. The mastoid air cells are normal. Left vertebral artery is dominant. There is no significant stenosis of basilar artery or the posterior cerebral arteries. There is no significant stenosis of the intracranial internal carotid arteries or anterior cerebral arteries. There is an occlusion of a left M2 middle cerebral artery in left frontal lobe. Anterior communicating artery is normal. The posterior communicating arteries are normal. There is no aneurysm. NECK CTA: There are no pathologically enlarged lymph nodes. There is no significant stenosis of the vertebral arteries. There is no visible plaque in the proximal internal carotid arteries. There is 0% stenosis of the proximal right internal carotid artery relative to normal distal artery lumen diameter (NASCET criteria). There is 0% stenosis of the proximal left internal carotid artery relative to normal distal artery lumen diameter. There is mild cervical spondylosis. There is extensive dental disease. IMPRESSION: 1. Age-indeterminate infarct in left frontal lobe. Age-indeterminate infarct involving the right thalamus, right basal ganglia, and posterior limb right internal capsule. 2. Old infarct in left parietal lobe. 3. Extensive nonspecific cerebral white matter disease, which likely represents chronic small vessel ischemic disease. 4. Acute hematoma in the left thalamus and lateral, third, and fourth ventricles with mild ventriculomegaly of the lateral ventricles. 5. Total occlusion of a left M2 middle cerebral artery in left frontal lobe. 6. 0% stenosis of the proximal internal carotid arteries relative to normal distal artery lumen diameters (NASCET criteria). Reviewed, dictated and finalized at location E. IMPRESSION: 1. Age-indeterminate infarct in left frontal lobe. Age-indeterminate infarct in volving the right thalamus, right basal ganglia, and posterior limb right inter nal capsule. 2. Old infarct in left parietal lobe. 3. Extensive nonspecific cerebral white matter disease, which likely represents chronic small vessel ischemic disease. 4. Acute hematoma in the left thalamus and lateral, third, and fourth ventricle s with mild ventriculomegaly of the lateral ventricles. 5. Total occlusion of a left M2 middle cerebral artery in left frontal lobe. 6. 0% stenosis of the proximal internal carotid arteries relative to normal dis paz artery lumen diameters (NASCET criteria).
--- NOTE | ~2025-03-26 | CT_ITS ---
CT HEAD NON-CONTRAST Clinical History: CVA, rt side weakness Comparison: CT brain 07/05/2019 Technique: Unenhanced axial images skull base to vertex Coronal, sagittal reformats CT images acquired with automatic exposure control for dose reduction DLP: 681 mGy-cm Findings: Extensive intraventricular hemorrhage, left lateral ventricle worse, with hemorrhage extending through third ventricle and into fourth ventricle. Parenchymal hemorrhage left thalamus. Extensive white matter hypodense changes. Left frontal encephalomalacia. Sulci, ventricles: Unremarkable. No evidence acute territorial infarct. No mass effect, midline shift. Bony calvarium intact. Visualized paranasal sinuses: Clear. Mastoid air cells: Clear. IMPRESSION: 1. Extensive intraventricular hemorrhage, left lateral ventricle worse, with hemorrhage extending through third ventricle and into fourth ventricle. 2. Parenchymal hemorrhage left thalamus. 3. Extensive white matter hypodense changes. 4. Left frontal encephalomalacia. Reviewed, dictated and finalized at location . IMPRESSION: 1. Extensive intraventricular hemorrhage, left lateral ventricle worse, with h emorrhage extending through third ventricle and into fourth ventricle. 2. Parenchymal hemorrhage left thalamus. 3. Extensive white matter hypodense changes. 4. Left frontal encephalomalacia.
[2025-03-26 01:10] VITALS: BP 134/96; PULSE 74; RESP 28; O2SAT 98
--- OUTSIDE RECORDS SUMMARY | 2025-03-26 01:18 | XMS_ITS | Clinical Summary ---
Author Organization [facility] Address [address] [place] [id number] Care Team Providers Care Industrial Engineer Name Role Phone None, Provider MD Primary Care Provider Unavaila ble Allergies No known active allergies Medications furosemide (LASIX) 80 MG tablet Take 1 tablet (80 mg total) by mouth 2 (two) times daily. Active spironolactone (ALDACTONE) 50 MG tablet Take 1 tablet (50 mg total) by mouth daily. Active Active Problems Problem Noted Date Diagnosed Date Acute exacerbation of CHF (congestive heart fail ure) 09/09/2024 Hypertensive urgency 07/19/2024 Hypertensive emergency 09/22/2023 Family History Medical History Relation Comments CHF [...] of weekend, unable to say how many [facility] Utilities Answer Date Recorded In the past 12 months has e [employer], gas, oil, or water [employer] threatened to shut off services in your home? No 09/10/2024 Humiliation, Afraid, Rape, and Kick questionnair e Answer Date Recorded Within the last year, have y ou been afraid of your partner or ex-partner? No 09/10/2024 Within the last year, have y ou been humiliated or emotionally abused in other ways by your partner or ex-partner? No Within the last year, have y ou been kicked, hit, slapped, or otherwise physically hurt by your partner or ex-partner? No 09/10/2024 Within the last year, have y ou been raped or forced to have any kind of sexual activity by your partner or ex-partner? No 09/10/2024 Overall Financial Resource Strain (CARDIA) Answe r Date Recorded How hard is it for you to pa y for the very basics like food, housing, medical care, and heating? Somewhat hard 09/10/2024 Hunger Vital Sign Answer Date Recorded Within the past 12 months, y ou worried that your food would run out before you got the money to buy more. Never true 09/11/19 25 Within the past 12 months, t he food you bought just didn't last and you didn't have money to get more. Never true 09/10/2024 PRAPARE - Transportation Answer Date Re corded In the past 12 months, has l ack of transportation kept you from medical appointments or from getting medications? Yes 08/24 In the past 12 months, has l ack of transportation kept you from meetings, work, or from getting things needed for daily living? Yes 09/10/2024 Housing Stability Vital Sign Answer Erick e Recorded In the last 12 months, was t here a time when you were not able to pay the mortgage or rent on time? No 09/10/2024 In the past 12 months, how m any times have you moved where you were living? 2 09/10/2024 At any time in the past 12 m [facility], were you homeless or living in a prison (including now)? 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 Not on file Not on file Not on file Last Filed Vital Signs Vital Sign Reading Time Taken Comments Blood Pressure 136/98 09/15/2024 10:16 AM CDT Pulse 74 09/15/2024 10:16 AM CDT Temperature 36.6 C (97.9 F) 09/15/2024 10:16 AM CDT Respiratory Rate 20 09/15/2024 10:16 AM CDT Oxygen Saturation 100% 09/15/2024 10:16 AM CDT Inhaled Oxygen Concentration - - Weight 86.4 kg (190 lb 8 oz) 09/15/2024 3:26 AM CDT Height 182.9 cm (6') 09/09/2024 7:39 PM CDT Body Mass Index 25.84 09/09/2024 7:39 PM CDT Plan of Treatment Health Maintenance Due Date Last Done Comments Annual Physical 1987 Hepatitis B Vaccines (2 of 3 - 3-dose series) 04/08/2001 03/11/2001 Diabetes: Retinopathy Eye Exam 2002 Hepatitis C 2002 DTaP, Tdap and Td Vaccines ( 1 - Tdap) 2003 Pneumococcal Vaccine: Pediatrics (0 to 5 Years) and At-Risk Patients (6 to 49 Years) (1 of 2 - PCV) 2003 HPV Vaccines (1 - 3-dose SCD M series) 2011 PHQ-2 (Physician [place]) 05/26/2024 Lipid Panel 09/21/2024 09/22/2023 COVID-19 Vaccine (1 - 2024-2 6 season) 2025 Influenza Adult (#1) 2025 Hemoglobin A1C 03/12/2025 09/10/2024, 07/20/2024, 09/22/2023 Hepatitis A Vaccines Aged Out No long er eligible based on patient's age to complete this topic Meningococcal B Vaccine Aged Out No l onger eligible based on patient's age to complete this topic Meningococcal Vaccine Aged Out No franklin artie eligible based on patient's age to complete this topic RSV Immunizations Under 20 Months Aged Out No longer eligible b ased on patient's age to complete this topic Goals Goal Patient Goal Type Associated Problems Recent Progress Patient-Stated? Author Patient will return to prior living situation and remain independent in ADLs upon discharge from hospital Lifestyle No Vanda Brown, cut off sawyer - family caregiver with be involved in care transitions and discharge planning Lifestyle No Rita Topete RN Interventions Community Resource Recommendations Community Resource Services Recommended Domains Addressed Status Status Reason/Outcome Date/Time [facility] Assistance Program Financial Assistance Financial Resource Strain Recommended 12/13/2024 8:52 PM CDT [facility] Financial Assistance Financial Resource Strain, Housing Stability Recommended 12/13/2024 8:52 PM CDT [facility] Financial Assistance Financial Resource Strain Recommended 12/13/2024 8:52 PM CDT [facility] Financial Assistance Financial Resource Strain Recommended 12/13/2024 8:52 PM CDT [employer] Financial Assistance Financial Resource Strain Recommended 12/13/2024 8:52 PM CDT [facility] Financial Assistance Financial Resource Strain Recommended 12/13/2024 8:52 PM CDT from Last 12 Months Procedures Procedure Name Priority Date/Time Associated Diagnosis Comments HEMOGLOBIN, GLYCOSYLATED Routine 09/10/2024 3:22 AM CDT LIPID PANEL STAT 09/22/2023 4:50 AM CDT from Last 3 Months or Most Recently Relevant to Health Maintenance Results * (ABNORMAL) HEMOGLOBIN, GLYCOSYLATED (09/10/2024 3:22 AM CDT) HGB A1C 6.4(H) <5.7 % 09/10/2024 9:00 AM CDT [facility] Comment: ADA GUIDELINES 2010 5.7 TO 6.4% INCREASED RISK OF DIABETES > OR = 6.5% CONSISTENT WITH DIABETES ESTIMATED AVG GLUCOSE 137 mg/dL 09/10/2024 9:00 AM CDT [facility] 09/10/2024 3:22 AM CDT Cuba Parrish NP LABORATORY Final Result [facility] [address] [place] [address], [place] [phone] * LIPID PANEL (09/22/2023 4:50 AM CDT) CHOLESTEROL 161 <200 MG/DL 09/22/2023 5:55 AM CDT [facility] TRIGLYCERIDES 73 <150 MG/DL 09/22/2023 5:55 AM CDT [facility] HDL 48 >40.0 MG/DL 09/22/2023 5:55 AM CDT [facility] LDL (CALCULATED) 98 <100 MG/DL 09/22/19 5:55 AM CDT [facility] NON HDL CHOLESTEROL 113 <130 MG/DL 09/21 5:55 AM CDT [facility] CHOL/HDL RATIO 3.4 0.0 - 4.5 09/22/2023 5:55 AM CDT [facility] VLDL CALCULATION 15 5 - 55 MG/DL 09/22/2023 5:55 AM CDT [facility] LIPID INTERPRETATION 09/22/2023 5:55 AM CDT [facility] Comment: NIH CONCENSUS REPORT RECOMMENDATIONS: ADULT CHILD LOW RISK: CHOLESTEROL <200 <170 TRIGLYCERIDE <150 --- HDL >=60 --- LDL <100 <110 BORDERLINE: CHOLESTEROL 200-239 170-199 TRIGLYCERIDE 150-199 --- HDL 40-59 --- LDL 100-159 110-129 HIGH RISK: CHOLESTEROL >=240 >=200 TRIGLYCERIDE >=200 --- HDL <40 --- LDL >=160 >=130 09/22/2023 4:50 AM CDT us Irene Bush MD LABORATORY Final Resul t [facility] [address] [place] [address], [place] [phone] from Last 3 Months or Most Recently Relevant to Health Maintenance Insurance [place] [address] Advance Directives * Full Code (Latest Code Status on File) Date Activated Date Inactivated Comments 09/09/2024 9:50 PM 09/15/2024 2:28 PM * Full Code Date Activated Date Inactivated Comments 07/19/2024 11:18 PM 07/28/2024 3:58 PM * Full Code Date Activated Date Inactivated Comments 09/22/2023 3:32 AM 09/24/2023 3:36 PM Care Teams Industrial Engineer Relationship Specialty Start Date End Date None, Provider, MD PCP - General UNKNOWN PHYSICIAN SPECIALTY 09/21/23
[2025-03-26 01:45] VITALS: O2SAT 96
[2025-03-26 01:50] VITALS: BP 242/187; PULSE 78
[2025-03-26] MEDS: RAPID SEQUENCE INTUBATION KIT 1 EACH (01:50)
[2025-03-26] MEDS: fentaNYL CITRATE INJ (*CRX) 100 MCG/2 ML VIAL 200 MCG IV PUSH (01:54)
[2025-03-26] MEDS: ETOMIDATE 20 MG/10 ML AMPUL IV PUSH (01:56)
[2025-03-26] MEDS: ROCURONIUM BROMIDE 50 MG/5 ML VIAL 100 MG IV PUSH (01:56)
[2025-03-26] MEDS: levETIRAcetam 1500MG/NACL100ML 1,500 MG/100 ML BAG 400 MG IVPB (02:00)
[2025-03-26 02:20] VITALS: PULSE 65; RESP 28
[2025-03-26] MEDS: PROPOFOL IV EMULSION 100 ML 20 MG (02:20)
--- NOTE | 2025-03-26 03:10 | PC.NURSE ---
Pt taken to CT upon ED arrival accompanied by this RN, GCS 5. Pt placed on pulse oximeter at CT with oxygen saturation 80%, O2@ 6L NC with O2 94% with HR 74 BG 105, BP 247/207 L ARM, 20mg labetalol IV , 1,500mg keppra IV and started on 5mg/hr nicardipine drip 0156: 20mg Etomidate 100 mg Jb 0157:scope & 7.5 ET tube in positive color change 25 @ lip bilateral breath sounds 0158: 20 mg Etomidate
--- NOTE | 2025-03-26 03:49 | ED_ITS ---
HPI - Altered Mental Status General Chief Complaint: Altered Mental Status Stated Complaint: altered History of Present Illness HPI narrative: 39-year-old male presenting via EMS for concerns of altered mental status and nausea/vomiting. Patient's last known well was sometime this morning around 10 when he got up to go to work. He has been home from work and acting odd, nauseous and vomiting. According to the family members who called EMS patient was altered and not responsive in bed around midnight. Patient presents with right hemiplegia, blood pressures in the 260 systolic, following commands but not able to speak with a left-sided gaze preference. Stroke protocol was foll owed at this time and patient was sent to the CT scanner. Collateral formation provided by EMS which states that family was not able provide much collateral formation but he has a history of uncontrolled hypertension. Related Data Allergies Allergy/AdvReac Type Severity Reaction Status Date / Time No Known Allergies Allergy Verified 06/29/24 16:44 Review of Systems Review of Systems: ROS unobtainable: Yes unobtainable due to medical condition and unobtainable due to mental status PMFSH Past Medical History Medical History Hypertensive cardiomyopathy Hypertensive kidney disease with CKD stage III Tobacco use Chronic renal failure Heart failure with reduced ejection fraction EF of 30 to 35% on echocardiogram in July 2021. Hypertension Surgical History Surgical History No history of previous surgery Family History Family History Father , at age 53. 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 He lives in [place], alone. He smokes about a pack a week and drinks on the weekends, approximately a few shots and a couple of beers. He also uses marijuana. His mother, Juanita Headley is his emergency contact. Smoking packs per day: 3 Smoking cigarettes per day: 60.0 Years smoked: 23 Smoking pack-years: 69.00 Smoking status: Current every day smoker Tobacco type: cigarettes Second hand tobacco smoke exposure: Yes Alcohol intake: never Alcohol use details: Drinks alcohol on the weekends Substance use: current Substance use type: marijuana Other substance usage details: 3 blunts a week Do You Feel Safe in your Home?: Yes Lack of Transportation: No Lack of Food: Never True Current Housing: I Have Housing Concerned About Future Housing: No Difficulty Paying Gas/Electric Bills: No Difficulty Paying for Meds: No Currently Unemployed: No Education: High School Diploma/GED Difficulty w/ Childcare or Family Care: No Living arrangements: with family Occupation/Education: occupation Spiritual care concerns: No Exam Narrative: GENERAL: Right hemiplegia, following commands on the left side, left-sided gaze preference HEAD: Normocephalic and atraumatic head neck EYES: Pupils are 2 mm and gazing to the left but reactive. ENT: Nares clear, no rhinorrhea or epistaxis. Mucous membranes moist. NECK: Supple. CHEST: Irregular breathing but clear to auscultation. Tachypneic. HEART: Bounding pulses peripherally. No murmur heard. Warm extremities, 2+ radial and dorsalis pedis pulses. ABDOMEN: [Soft, nondistended], [nontender], [No rigidity or guarding] EXTREMITIES: Normal range of motion. [No edema.] SKIN: Warm, dry, no rash. NEURO: Right hemiplegia and neglect, left-sided gaze preference. Following commands on left upper and lower extremity. Not able to verbalize or speak. Pupils 2 mm and reactive Course Vital Signs Vital signs: Vital Signs Pulse Rate 74 03/26/25 01:10 Respiratory Rate 28 H 03/26/25 01:10 Blood Pressure 134/96 H 03/26/25 01:10 Pulse Oximetry 98 03/26/25 01:10 Oxygen Delivery Nasal Cannula 03/26/25 01:10 Oxygen Flow Rate 6 03/26/25 01:10 Pulse Rate 65 03/26/25 02:20 Respiratory Rate 28 H 03/26/25 02:20 Blood Pressure 242/187 H 03/26/25 01:50 Pulse Oximetry 96 03/26/25 01:45 Oxygen Delivery Bag Valve Mask 03/26/25 01:45 Oxygen Flow Rate 15 03/26/25 01:45 Procedures Arterial Line Arterial line #1: Date of Arterial Line: 03/26/25 Time of Arterial Line: 01:40 Arterial Line Location: radial and right Perfomed Emergently - Given emergent patient conditions, temporal constraints may have precluded informed consent: Yes Time Out Performed: Yes Size (Gauge): 20 Technique Used: guide wire technique Post-Procedure: line sutured into place and dry sterile dressing placed Patient Tolerated Procedure: well and no complications Complications: none EJ/Peripheral Line Arm R: EJ/Peripheral Line Date: 03/26/25 EJ/Peripheral Line Time: 01:50 Time Out Performed: Yes Skin Cleansed in Sterile Fashion: Yes Ultrasound Guided: Yes Size (gauge): 20 IV Secured and Dressing Applied: Yes Patient Tolerated Procedure: well and no complications Intubation Intubation #1: Intubation Date: 03/26/25 Intubation Time: 01:45 Time out performed: Yes sedative: Etomidate Mg Given: 40 paralytic: Rocuronium Mg Given: 100 Laryngoscope: fiber optic video scope Tube Size (cm): 7.5 Method of Intubation: orotracheal Number of Attempts: 1 Tube Secured Depth (cm): 25 Tube Secured Location: lips Tube Placement Confirmation: visualized tube passing through cords, equal breath sounds bilaterally, no breath sounds over epigastrium and confirmation by capnometry Patient Tolerated Procedure: well and no complications Intubation Complications: none IO Right Humerus: IO Date: 03/26/25 IO Time: 01:44 Time Out Performed: Yes Local Anesthetic: none Prep: sterile prep IO Instrument Used to Penetrate the Cortex: battery powered IO drill Post Procedure: aspirated marrow, easily flushes and secured in place Patient Tolerated Procedure: well and no complications Complications: none MDM - Altered Mental Status MDM Narrative Medical decision making narrative: 39-year-old male presenting via EMS for concerns of altered mental status and nausea/vomiting. Patient's last known well was sometime this morning around 10 when he got up to go to work. He has been home from work and acting odd, nauseous and vomiting. According to the family members who called EMS patient was altered and not responsive in bed around midnight. Patient presents with right hemiplegia, blood pressures in the 260 systolic, following commands but not able to speak with a left-sided gaze preference. Stroke protocol was followed at this time and patient was sent to the CT scanner. Collateral formation provided by EMS which states that family was not able provide much collateral formation but he has a history of uncontrolled hypertension. Patient initially hypertensive the 240-260 range per EMS. Our blood pressure was not able to detect a number and was elevated passed that. CT scan obtained immediately which reviewed shows a thalamic bleed with intraventricular extension and subarachnoid component. Patient brought back to room 12 for further evaluation with art line, intubation, more access and treatment with Keppra, nicardipine, labetalol. [facility] transfer system was spoken to immediately upon review of the CT scan and I was connected to Stroke Neurology Dr. Gustafson who recommended emergent ER to ER transfer. Spoke to Dr. Najera who accepted the transfer with current interventions in place. Return to the patient to complete intubation arterial line and stabilization. Arterial line placed shows blood pressures in the 310 systolic range over 200 diastolic range with good waveform. Given labetalol, nicardipine and labetalol drip ordered. Keppra initiated. Intubated successfully with intubation using 40 mg of etomidate for sedation 100 mg of rocuronium for paralysis and 200 mg of fentanyl bolus for intracranial pressure and pain control. Started on propofol infusion. Blood pressure is slowly going down towards the 200 systolic range. Goal blood pressure will be under 160 systolic for hemorrhagic stroke. Prior to patient departing, my team was called by the radiologist to inform us that the CT angiography also shows a distal occlusion in the M2/M3 segment of the anterior left branch artery and likely the culprit causing elevated perfu juan a pressures and then hemorrhagic conversion. Helicopter transfer services arranged for emergent ER to ER transfer to [facility] system. Patient is stable to the best of our current abilities and transfer was successful via helicopter at this time. Medical Records Attestation: I reviewed the patient's medical records. Imaging Data Attestation: I personally reviewed and interpreted this imaging study as follows: My impression: Thalamic hemorrhage with intraventricular extension. Distal M2/M3 occlusion with hemorrhagic conversion Critical Care Time Critical Care Time Critical Care Time: Yes Total Critical Care Time: 75 (Critical care time is exclusive of the separately billable procedures listed above.) Discharge Plan Discharge Clinical Impression: Hemorrhagic cerebrovascular accident (CVA), Hypertensive emergency, Right hemiplegia Patient Disposition: Acute Care Hospital Condition: Critical Patient Language: Citizen Of [place] Prescriptions: No Action carvedilol [Coreg] 25 mg Tablet 25 mg PO Q12HR Qty: 60 0RF doxycycline hyclate 100 mg Tablet 100 mg PO Q12HR Qty: 8 0RF cefdinir 300 mg capsule 300 mg PO BID Qty: 6 0RF nifedipine [Procardia XL] 30 mg Tablet Extended Release 24hr 30 mg PO DAILY 30 Days Qty: 30 0RF furosemide 40 mg Tablet 60 mg PO DAILY Qty: 45 0RF isosorbide dinitrate 30 mg tablet 30 mg PO QID Qty: 120 0RF hydralazine 100 mg tablet 100 mg PO QID Qty: 120 0RF sacubitril-valsartan [Entresto] 49-51 mg Tablet 1 tablet PO Q12HR 30 Days Qty: 60 0RF Follow-up/Referrals: Macario Marcum MD [Primary Care Provider, Family Practice] Time of Disposition: 03:00
== END 2025-03-26 03:00 | disposition short-term general hospital (02) ==
PROVIDERS: Emergency Provider Student in an Organized Health Care Education/Training Program; PCP Family Medicine
DX: I62.9 Nontraumatic intracranial hemorrhage, unspecified (principal); G81.91 Hemiplegia, unspecified affecting right dominant side; I16.1 Hypertensive emergency; I13.0 Hypertensive heart and chronic kidney disease with heart failure and stage 1 through stage 4 chronic kidney disease, or unspecified chronic kidney disease; N18.30 Chronic kidney disease, stage 3 unspecified; I50.9 Heart failure, unspecified; I43 Cardiomyopathy in diseases classified elsewhere; F17.210 Nicotine dependence, cigarettes, uncomplicated; R00.0 Tachycardia, unspecified; R94.31 Abnormal electrocardiogram [ECG] [EKG]
CPT/HCPCS: 31500; 36680; 70450; 70496; 70498; 93005; 96365; 96375; 99291; J1953; J2404; J2704; J3010; J7030; Q9967

== ENCOUNTER 2025-05-01 14:16 | Emergency (ER) | payer OTHER, SELFPAY ==
[2025-05-01] VITALS (45 sets, daily range): BP systolic 150–206; BP diastolic 99–146; PULSE 55–122; RESP 9–17; TEMP 36.8; O2SAT 98–100
--- NOTE | ~2025-05-01 | CT_ITS ---
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 TECHNIQUE: CTA scan with 3D Reconstructions of the brain and neck was performed with contrast Isovue 300, 92cc injected IV. One or more of the following dose reduction techniques were used: automated exposure control, adjustment of the mA and/or kV according to patient size, use of iterative reconstruction technique. Unless otherwise stated, incidental findings do not require dedicated follow up imaging FINDINGS: CTA brain: The noncontrast images demonstrate a posterior right-sided WIRE BOUND BOX MACHINE OPERATOR shunt terminating in the right frontal horn. There is a remote appearing left frontal infarct. There is a focus of hemorrhage within the left basal ganglia with surrounding vasogenic edema maximally measuring 1.1 x 1.2 cm with mild midline shift at this level. No gross extra-axial fluid collections are identified. The mastoid air cells, sinuses and orbits appear unremarkable. The basilar artery appears unremarkable. The right posterior cerebral arteries unremarkable. The left posterior cerebral artery appears unremarkable. The right petrous and cavernous ICA segments are within normal limits. The right M1, M2 segments and their branches appear unremarkable. The right A1 and A2 segments are unremarkable. The left petrous and cavernous ICA segments unremarkable. The left M1, M2 segments and their branches are unremarkable. The left A1 and A2 segments appear unremarkable. CTA NECK: The cervical segments of the vertebral arteries appear unremarkable. The left vertebral artery is dominant. The right CCA is unremarkable. Proximal right ICA is tortuous but grossly patent. The left CCA is unremarkable. The proximal left ICA is unremarkable. The visualized parotid and submandibular glands are unremarkable. No lymphadenopathy. The lung apices appear unremarkable. No sclerotic or lytic lesions identified. IMPRESSION: 1. There is no critical stenosis, occlusion or aneurysm identified. Reviewed, dictated and finalized at location P. NG MECHANIC
--- NOTE | ~2025-05-01 | XR_ITS ---
EXAMINATION: XR chest 1V portable COMPARISON: No comparisons available. HISTORY: weakness FINDINGS: The lungs are clear, no effusion. No pneumothorax. Heart is normal size. Mediastinal and hilar contours are within normal limits. Bony thorax no acute abnormality. Miscellaneous: Right central line terminates in the SVC Impression: No acute cardiopulmonary abnormality. Reviewed, dictated and finalized at location P. PILOT Impression: No acute cardiopulmonary abnormality.
--- OUTSIDE RECORDS SUMMARY | 2025-05-01 14:19 | XMS_ITS | Clinical Summary ---
Author Organization [facility] [address] Address [address] [place] [address] Care Team Providers Care Executive Secretary Social Welfare Name Role Phone Arley Orona MD Unavailable [phone] Jillian Catherine MD Unavailable + Jayce Coreas MD Unavailable [phone] Jaydon Anderson MD Primary Care Provider [phone] Allergies No known active allergies Medications furosemide (LASIX) 80 mg tablet Take 1 tablet (80 mg total) by mouth 2 (two) times a day 60 tablet 1 5 10/15/19 26 Active amLODIPine (NORVASC) 10 mg tabletIndication s:Hypertension, essential Take 1 tablet (10 mg total) by mouth daily 30 tablet 1 5 Active carvediloL (COREG) 25 mg tabletIndication s:Hypertension, essential Take 1 tablet (25 mg total) by mouth 2 (two) times a day with meals 180 tablet 3 5 01/06/20 26 Active spironolactone (ALDACTONE) 50 mg tabletIndication s:Hypertension, essential Take 1 tablet (50 mg total) by mouth daily 90 tablet 3 5 01/06/20 26 Active sacubitriL-valsa rtan (ENTRESTO) 97-103 mg tabletIndication s:chronic heart failure Take 1 tablet by mouth 2 (two) times a day 180 tablet 3 5 01/06/20 Active hydrALAZINE (APRESOLINE) 100 mg tabletIndication s:hypertension Take 1 tablet (100 mg total) by mouth 3 (three) times a day 270 tablet 3 5 01/06/20 Active dapagliflozin propanediol (FARXIGA) 10 mg tabletIndication s:Heart Failure Take 1 tablet (10 mg total) by mouth daily 90 tablet 3 5 01/06/20 Active isosorbide mononitrate ER (IMDUR) 120 mg 24 hr tabletIndication s:Chronic systolic heart failure (HCC) Take 1 tablet (120 mg total) by mouth daily Please discontinue Isordil, and start Imdur once daily 90 tablet 3 5 01/06/20 Active Active Problems Problem Noted Date Diagnosed Date Hypertensive urgency 10/10/2024 Overview (10/10/2024): Assessment & Plan (10/10/2024 4:00 AM CDT): ICU placement Secondary to noncompliance to home medication regimen Nicardipine drip Serial cardiac enzymes Dietary counseling Other ventricular tachycardia 10/10/2024 Anasarca 05/22/2024 MIHAI (acute kidney injury) 05/05/2024 Stage 3a chronic kidney disease 05/05/2024 Hypertensive emergency 05/04/2024 Acute on chronic congestive heart failure, unspecified heart failure type 05/02/2024 Assessment & Plan (10/10/2024 4:00 AM CDT): IV Lasix Monitor urine output Monitor electrolyte levels Daily weight Dietary counseling Secondary to noncompliance with home medication regimen Echocardiogram 05/06/2024 --- ejection fraction 35-40% Abdominal pain 11/21/2023 Bilateral lower extremity edema [...] and methylmalonic acid Chronic systolic heart failure 12/17/2021 Assessment & Plan (01/09/2022 1:02 PM CDT): Refer to Cardiology. Increase Lasix to 40 mg b.i.d. re-evaluate few weeks Assessment & Plan (12/19/2021 1:51 PM CDT): Check BNP and BMP. Continue Lasix at same dosage. Well controlled. Hypertensive heart disease w ith chronic systolic congestive heart failure 12/17/2021 Assessment & Plan (01/09/2022 1:02 PM [...] He never did get appointment with the area field person ER brigitte Mckeon referred him to Resolved Problems Problem Noted Date Diagnosed Date Resolved Date Type 2 diabetes mellitus 10/10/2024 Overview (10/10/2024): Assessment & Plan (10/10/2024 4:01 AM CDT): New diagnosis A1c level 6.5 Fingersticks q.a.c. and HS with sliding scale coverage Dietary counseling Pre-diabetes 12/17/2021 01/05/2025 Assessment & Plan (12/19/2021 1:45 PM CDT): [...] Encouraged to maintain vegetables. Will need A1c Encounters Date Type Department Care Team Description 04/28/2025 Telephone [facility] Family Medicine at [address] [place] [address] Jaydon Anderson MD KAITLYN Questions from Last 3 Months Immunizations Immunization Administration Dates Next Due Hep B, Adolescent or Pediatric 03/11/2001 Influenza, Trivalent, Preservative Free, Intramu scular 04/16/2024 Tdap 12/10/2020 Medical History Medical History Date Comments Pre-diabetes CHF (congestive heart failure) (HCC) Hypertension Kidney disease Family History Medical History [...] drink = 0.6 oz pur e alcohol) [facility] Utilities Answer Date Recorded In the past 12 months has e [employer], gas, oil, or water [employer] threatened to shut off services in your home? No 10/11/2024 Social Connection and Isolation Panel Answer Date Recorded In a typical week, how many times do you talk on the phone with family, friends, or neighbors? More than three times a week 10/11/2024 How often do you get togethe r with friends or relatives? Three times a week 10/11/2024 How often do you attend chur ch or roman catholic services? Never 10/11/2024 Do you belong to any clubs o r organizations such as congregational groups, unions, fraternal or athletic groups, or school groups? No 10/11/2024 How often do you attend meet ings of the clubs or organizations you belong to? Never 10/11/2024 Are you , , di vorced, , never , or living with a partner? Living with partner 10/11/2024 Overall Financial Resource Strain (CARDIA) Answe r Date Recorded How hard is it for you to pa y for the very basics like food, housing, medical care, and heating? Somewhat hard 10/11/2024 PHQ-2 Answer Date Recorded PHQ-2 Total Score 0 10/11/2024 Hunger Vital Sign Answer Date Recorded Within the past 12 months, y ou worried that your food would run out before you got the money to buy more. Never true 10/12/19 25 Within the past 12 months, t he food you bought just didn't last and you didn't have money to get more. Never true 10/11/2024 PRAPARE - Transportation Answer Date Re corded In the past 12 months, has l ack of transportation kept you from medical appointments or from getting medications? Yes 09/23 In the past 12 months, has l ack of transportation kept you from meetings, work, or from getting things needed for daily living? Yes 10/11/2024 PHQ-9 Answer Date Recorded PHQ-9 Total Score 0 10/11/2024 Housing Stability Vital Sign Answer Erick e Recorded In the last 12 months, was t here a time when you were not able to pay the mortgage or rent on time? No 10/11/2024 In the past 12 months, how m any times have you moved where you were living? 0 10/11/2024 At any time in the past 12 m [facility], were you homeless or living in a mcc (including now)? No 10/11/2024 AUDIT-C Answer Date Recorded Q1: How often do you have a drink containing alc ohol? Monthly or less 01/05/2025 Q2: How many drinks containi ng alcohol do you have on a typical day when you are drinking? 1 or 2 01/05/2025 Q3: How often do you have si x or more drinks on one occasion? Less than monthly 01/05/2025 Personal Safety Answer Date Recorded Have you ever been in or are you currently in a harmful physical or emotional relationship or is someone making you feel afraid or unsafe? 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 Gender Identity Not on file Sexual Orientation Not on file Last Filed Vital Signs Vital Sign Reading Time Taken Comments Blood Pressure 182/128 01/05/2025 3:12 PM CDT Pulse 58 01/05/2025 3:12 PM CDT Temperature 36.3 C (97.3 F) 01/05/2025 3:12 PM CDT Respiratory Rate 18 01/05/2025 3:12 PM CDT Oxygen Saturation 96% 01/05/2025 3:12 PM CDT Inhaled Oxygen Concentration - - Weight 89.9 kg (198 lb 1.6 oz) 01/05/2025 3:12 P M CDT Height 182.9 cm (6') 01/05/2025 3:12 PM CDT Body Mass Index 26.87 01/05/2025 3:12 PM CDT Plan of Treatment Health Maintenance Due Date Last Done Comments Hepatitis C Screening 1984 Prostate Cancer Screening-PSA 1984 Dilated Eye Exam 1984 Foot Exam 1984 Varicella Vaccines (1 of 2 - 13+ 2-dose series) 1997 HPV Vaccines (1 - 3-dose SCDM series) 2011 Influenza Vaccine (#1) 2025 04/16/2024 Hemoglobin A1C 04/11/2025 10/09/2024 Albumin Creatinine Ratio, Urine 05/22/2025 05/22/2024 Depression Screening 10/09/2025 10/09/2024, 10/09/2024, 05/21/2024, Additional history exists Lipid Panel 10/12/2025 10/12/2024, 04/26, 04/16/2024, Additional history exists eGFR 10/14/2025 10/14/2024, 09/24, 10/12/2024, Additional history exists Pneumococcal vaccine <65 (1 of 2 - PCV) 12/21/2025 Postponed from 2003 (Patient declined, but will receive in the future) Regular Well Visit/Exam 18-64 01/05/2026 01/05/2025 DTaP/Tdap/Td Vaccine (2 - Td or Tdap) 12/10/2030 12/10/2020 Hepatitis B Screening Completed 03/11/2001 Procedures Procedure Name Priority Date/Time Associated Diagnosis Comments EGFR Routine 10/14/2024 6:09 AM CDT LIPID PANEL Routine 10/12/2024 5:24 AM CDT HEMOGLOBIN A1C Add-On 10/09/2024 2:35 PM CDT ALBUMIN CREATININE RATIO, URINE Routine 05/22/2024 7:49 AM LATEX SPOOLER from Last 3 Months or Most Recently Relevant to Health Maintenance Results * (ABNORMAL) eGFR (10/14/2024 6:09 AM CDT) eGFR 31(L) >=60 mL/min/1. 73 m2 Comment: Interpretive Data Reference Interval Normal >/= 90 mL/min/1.73m2 Mildly decreased* 60 - 89 mL/min/1.73m2 Mildly to moderately decreased 45 - 59 mL/min/1.73m2 Moderately to severely decreased 30 - 44 mL/min/1.73m2 Severely decreased 15 - 29 mL/min/1.73m2 Kidney Failure < 15 mL/min/1.73m2 *Relative to young adult level Estimated glomerular [...] was last reviewed 2021. Testing performed by: [address] [address] Blood 10/14/2024 6:09 AM CDT 10/14/2024 6:19 AM CDT Scot Rhodes MD LAB BLOOD ORDERABLES Final Result [facility] [address] [facility] Department [place] [address] * Lipid panel (10/12/2024 5:24 AM CDT) Cholesterol 113 30 - 199 mg/dL Comment: Interpretive Data Ages < or = 19 years Acceptable: <170 mg/dL Borderline high: 170-199 mg/dL High: >or= 200 mg/dL Ages > or = 20 years Desirable: <200 mg/dL Borderline high: 200-239 mg/dL High: >or= 240 mg/dL Literature References: 1. Expert Panel on Integrated Guidelines for Cardiovascular Health and Risk Reduction in Children and Adolescents. Pediatrics 2011;128:S213 2. NCEP Expert Panel. Circulation 2004;110:227 Current Interpretive Data was last revised on 2018. Testing performed by: [address] [address] Triglycerides 60 <=149 mg/dL ELVI SNIDER Comment: Interpretive Data Ages < or = 9 years Acceptable: <75 mg/dL Borderline high: 75-99 mg/dL High: >or= 100 mg/dL Ages 10 to 20 years Acceptable: <90 mg/dL Borderline high: 90-129 mg/dL High: >or= 130 mg/dL Ages > or = 20 years Desirable: <150 mg/dL Borderline high: 150-199 mg/dL High: 200-499 mg/dL Very high: >or= 499 mg/dL Literature References: 1. Expert Panel on Integrated Guidelines for Cardiovascular Health and Risk Reduction in Children and Adolescents. Pediatrics 2011;128:S213 2. NCEP Expert Panel. Circulation 2004;110:227 Current Interpretive Data was last revised on 2018. Testing performed by: [address] [address] HDL 57 >=40 mg/dL ELVI Comment: Interpretive Data Ages < or = 19 years Acceptable: >45 mg/dL Borderline low: 40-45 mg/dL Low: <40 mg/dL Ages > or = 20 years Desirable: >or= 60 mg/dL Low: <40 mg/dL Literature References: 1. Expert Panel on Integrated Guidelines for Cardiovascular Health and Risk Reduction in Children and Adolescents. Pediatrics 2011;128:S213 2. NCEP Expert Panel. Circulation 2004;110:227 Current Interpretive Data was last revised on 2018. Testing performed by: [address] [address] LDL, calculated 43 <=129 mg/dL ELVI Comment: Interpretive Data Ages < or = 19 years Acceptable: <110 mg/dL Borderline high: 110-129 mg/dL High: >or= 130 mg/dL Ages > or = 20 years Optimal: <100 mg/dL Near optimal: 100-129 mg/dL Borderline high: 130-159 mg/dL High: >160 mg/dL Calculated using the Arnaldo LDL-C estimating equation. This equation was implemented on 2024. Prior to this date LDL-C was estimated using the Friedewald equation. Literature References: 1. Expert Panel on Integrated Guidelines for Cardiovascular Health and Risk Reduction in Children and Adolescents. Pediatrics 2011;128:S213 2. NCEP Expert Panel. Circulation 2004;110:227 3. Arnaldo Bellamy al. EMY Cardiol. 2020 September 23;5(5):540-548. doi: 10.1001/jamacardio.2020.0013 Current Interpretive Data was last revised on 2024. Testing performed by: [address] [address] Non-HDL Cholesterol 56 mg/dL ELVI Comment: Interpretive Data Ages < or = 19 years Acceptable: <120 mg/dL Borderline high: 120-144 mg/dL High: >145 mg/dL Ages > or = 20 years When triglycerides are >200 mg/dL, Non-HDL cholesterol is a secondary target of therapy with treatment goals that are 30 mg/dL greater than the LDL cholesterol target. Literature References: 1. Expert Panel on Integrated Guidelines for Cardiovascular Health and Risk Reduction in Children and Adolescents. Pediatrics 2011;128:S213 2. NCEP Expert Panel. Circulation 2004;110:227 Current Interpretive Data was last revised on 2018. Testing performed by: [address] [address] Chol/HDL ratio 2 ELVI Comment:Testing performed by : [address] [address] Blood 10/12/2024 5:24 AM CDT 10/12/2024 5:35 AM CDT Sergey Mcarthur MD LAB BLOOD ORDERABLES Fi nal Result Performing Organization Address [facility] Co de Phone Number [facility] [address] [email or web address] [address] * (ABNORMAL) Hemoglobin A1c (10/09/2024 2:35 PM CDT) [facility] Hgb A1C 6.5(H) 4.0 - 5.6 % Comment:Testing performed by : [address] [address] Estimated Average Glucose 140 mg/dL ELVI Comment: The ADA recommends reporting an estimated Average Glucose (eAG) with all Hemoglobin A1c results using the equation derived from a study of 507 normal and diabetic adults. Minority populations were underrepresented and children were not included. (Diabetes Care 31:1164-4526, 2008). The eAG is not equivalent to a fasting glucose. Testing performed by: [address] [address] Blood 10/09/2024 2:35 PM CDT 10/09/2024 8:09 PM CDT us Malissa Catherine MD LAB BLOOD ORDERABLES Final Re sult Performing Organization Address [facility] Co de Phone Number [facility] [address] [facility] [email or web address] [address] * (ABNORMAL) Albumin Creatinine Ratio, Urine (05/22/2024 7:49 AM LATEX SPOOLER) Albumin Ur 192.0 mg/L Comment: Interpretive Data No reference range established. Current interpretive data was last revised 2018. Creatinine Ur 21.5 mg/dL [facility] Comment: Interpretive Data No reference range established. Current interpretive data was last revised 2018. Albumin Creatinine Ratio, Ur 893(H) 1 - 29 mg/g [facility] Urine 05/22/2024 7:49 AM LATEX SPOOLER 05/22/2024 9:00 AM LATEX SPOOLER us Ying Reagan MD LAB URINE ORDERABLES Final Result [facility] [place] [address] from Last 3 Months or Most Recently Relevant to Health Maintenance Insurance [facility] Member Subscriber Plan / Payer (Ef fective 2024-Present) Name:Manuel Headley III Relation to Subscriber:Self Name:Manuel Headley III Payer ID:[id number] (NAIC) Group ID:Not on file Type:MEDICAID RISK OTHER Address: [facility] [id number] [place] [id number] Advance Directives For more information, please contact: [phone] * Full Code (Latest Code Status on File) Date Activated Date Inactivated Comments 10/10/2024 3:46 AM 10/14/2024 7:09 PM * Full Code Date Activated Date Inactivated Comments 05/22/2024 5:46 AM 05/25/2024 10:43 PM * Full Code Date Activated Date Inactivated Comments 05/02/2024 8:57 AM 05/09/2024 6:40 PM * Full Code Date Activated Date Inactivated Comments 05/02/2024 6:32 AM 05/02/2024 8:57 AM * Full Code Date Activated Date Inactivated Comments 04/14/2024 3:51 PM 04/16/2024 7:03 PM Care Teams Executive Secretary Social Welfare Relationship Specialty Start Date End Date Jaydon Anderson MD [address] [place] [address] PCP - General Family Medicine 01/05/25 Arley Orona MD [address] [place] [address] Consulting Physician Nephrology 05/09/24 Jillian Catherine MD [address] [place] [address] Consulting Physician Cardiology 10/15/24 Jayce Coreas MD [address] [address] Consulting Physician Nephrology 10/15/24
--- OUTSIDE RECORDS SUMMARY | 2025-05-01 14:19 | XMS_ITS | Clinical Summary ---
Author Organization [facility] Address [address] [place] [address] Care Team Providers Care Winding Operator Name Role Phone None, Provider MD Primary [...] of weekend, unable to say how many [facility] Utilities Answer Date Recorded In the past 12 months has e [employer], gas, oil, or water [employer] threatened to shut off services in your [...] any time in the past 12 m [facility], were you homeless or living in a long term (including now)? 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 Not on file Not [...] 3-dose SCD M series) 2011 PHQ-2 (Physician [place]) 05/26/2024 Lipid Panel 09/21/2024 09/22/2023 COVID-19 Vaccine [...] discharge from hospital Lifestyle No Vanda Brown, biological photographer - family caregiver with be involved in care transitions and discharge planning Lifestyle No Rita Topete RN Interventions Community Resource Recommendations Community Resource Services Recommended Domains Addressed Status Status Reason/Outcome Date/Time [facility] Assistance Program Financial Assistance Financial Resource Strain Recommended 12/13/2024 8:52 PM CDT [facility] Financial Assistance Financial Resource Strain, Housing Stability Recommended 12/13/2024 8:52 PM CDT [facility] [employer] Financial Assistance Financial Resource Strain Recommended 12/13/2024 8:52 PM CDT [facility] Financial Assistance Financial Resource Strain Recommended 12/13/2024 8:52 PM CDT [employer] Financial Assistance Financial Resource Strain Recommended 12/13/2024 8:52 PM CDT [facility] Financial Assistance Financial Resource Strain Recommended 12/13/2024 [...] 6.4(H) <5.7 % 09/10/2024 9:[address] [facility] Comment: ADA GUIDELINES 2010 5.7 TO 6.4% INCREASED RISK OF DIABETES > OR = 6.5% CONSISTENT WITH DIABETES ESTIMATED AVG GLUCOSE 137 mg/dL 09/10/2024 9:[address] [facility] 09/10/2024 3:22 AM CDT Cuba Parrish NP LABORATORY Final Result [facility] [address] [place] [address], [place] [phone] * LIPID PANEL (09/22/2023 4:50 AM CDT) CHOLESTEROL 161 <200 MG/DL 09/22/2023 5:[address] [facility] TRIGLYCERIDES 73 <150 MG/DL 09/22/2023 5:[address] [facility] HDL 48 >40.0 MG/DL 09/22/2023 5:[address] [facility] LDL (CALCULATED) 98 <100 MG/DL 09/22/19 5:[address] [facility] NON HDL CHOLESTEROL 113 <130 MG/DL 09/21 5:[address] [facility] CHOL/HDL RATIO 3.4 0.0 - 4.5 09/22/2023 5:[address] [facility] VLDL CALCULATION 15 5 - 55 MG/DL 09/22/2023 5:[address] [facility] LIPID INTERPRETATION 09/22/2023 5:[address] [facility] Comment: NIH CONCENSUS REPORT RECOMMENDATIONS: ADULT CHILD LOW RISK: CHOLESTEROL <200 <170 TRIGLYCERIDE <150 --- HDL >=60 --- LDL <100 <110 BORDERLINE: CHOLESTEROL 200-239 170-199 TRIGLYCERIDE 150-199 --- HDL 40-59 --- LDL 100-159 110-129 HIGH RISK: CHOLESTEROL >=240 >=200 TRIGLYCERIDE >=200 --- HDL <40 --- LDL >=160 >=130 09/22/2023 4:50 AM CDT us Irene Bush MD LABORATORY Final Resul t [facility] [address] [place] [address], [place] [phone] from Last 3 Months or Most Recently Relevant to Health Maintenance Insurance MEDICAID Advance Directives * Full Code (Latest Code Status on File) Date Activated Date Inactivated Comments 09/09/2024 9:50 PM 09/15/2024 2:28 PM * Full Code Date Activated Date Inactivated Comments 07/19/2024 11:18 PM 07/28/2024 3:58 PM * Full Code Date Activated Date Inactivated Comments 09/22/2023 3:32 AM 09/24/2023 3:36 PM Care Teams Winding Operator Relationship Specialty Start Date End Date None, Provider, MD PCP - General UNKNOWN PHYSICIAN SPECIALTY 09/21/23
--- OUTSIDE RECORDS SUMMARY | 2025-05-01 14:19 | XMS_ITS | Encounter Summary ---
Author Organization [facility] Healthcare Address [address] [place] [address] Care Team Providers Care Drag Car Racer Name Role Phone Arley Orona MD Unavailable [phone] Jillian Catherine MD Unavailable + Jayce Coreas MD Unavailable [phone] Jaydon Anderson MD Primary Care Provider [phone] Reason for Visit * Reason Onset Date Comments KAITLYN Questions 04/28/2025 Encounter Details Date Type Department Care Team (Late st Contact Info) Description 04/28/2025 Telephone [facility] Medical Group Family Medicine at [address] [place] [address] Jaydon Anderson MD [address] [place] [address] KAITLYN Questions Social History Tobacco Use Types Packs/Day Years Used Date Smoking Tobacco: Former Cigarettes 0.3 20 2 002 - 05/2021 Smokeless Tobacco: Never Alcohol Use Standard Drinks/Week Comments Yes 0 (1 standard drink = 0.6 oz pur e alcohol) [facility] Utilities Answer Date Recorded In the past 12 months has [employer], gas, oil, or water company threatened to [...] often do you attend chur ch or druze services? Never 10/11/2024 Do you belong to any clubs o r organizations such as pentecostal groups, unions, fraternal or athletic groups, or [...] any time in the past 12 m [facility], were you homeless or living in a prison (including now)? 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 No Will patient be transferred to another inpatient facility (e.g. [facility], inpatient rehab, etc.)? No The patient was not discharged at the time of the call. Patient will need to be contacted after discharge to complete remaining questions. Date Admitted: 04/13/25 Tentative Discharge Date: 04/29/25 Facility Admitted To: [facility] Date of KATILYN Appointment: Next available wasn't until 05/18 that I could book for Additional Comments: Call came from the rehab; that patient is currently in. Does message need to be routed? Yes-Action Needed HING DIETITIAN documented in this encounter Plan of Treatment Not on file documented as of this encounter Visit Diagnoses Not on filedocumented in this encounter Care Teams Drag Car Racer Relationship Specialty Start Date End Date Jaydon Anderson MD [address] [place] [address] PCP - General Family Medicine 01/05/25 Arley Orona MD [address] [place] [address] Consulting Physician Nephrology 05/09/24 Jillian Catherine MD [address] [address] Consulting Physician Cardiology 10/15/24 Jayce Coreas MD [address] [address] Consulting Physician Nephrology 10/15/24 documented as of this encounter
--- NOTE | 2025-05-01 14:30 | ECG_ITS ---
Test Date: 2025-05-01 15:01:10 Measurements Intervals Powers Rate: 60 P: 1 PA: 182 QRS: 260 QRSD: 132 T: 122 QT: 439 QTc: 441 Interpretive Statements SINUS RHYTHM POSSIBLE LEFT ATRIAL ENLARGEMENT INTRAVENTRICULAR CONDUCTION DELAY CANNOT R/O SEPTAL INFARCT, AGE INDETERMINATE INFERIOR INFARCT, AGE INDETERMINATE ST-T WAVE ABNORMALITY IN LAT/HIGH LAT LEADS- CONSIDER ISCHEMIA BASELINE ARTIFACT- I, II, III, AVR, V2-V4 ABNORMAL ECG Compared to ECG 03/26/2025 07:03:44 HEART RATE HAS DECREASED POSSIBLE ISCHEMIA NO PRESENT Electronically Signed On 05-01-2025 19:16:26 TALENT ACQUISITION ASSISTANT by Cholo Phipps D.O.
--- NOTE | 2025-05-01 14:31 | ED_ITS ---
HPI - Weakness General Chief complaint: Weakness <Jelena Heart APRN - Last Filed: 05/01/25 21:00> Stated complaint: all over pain <Jelena Heart APRN - Last Filed: 05/01/25 21:00> Time Seen by Provider: 05/01/25 14:21 <Jelena Heart APRN - Last Filed: 05/01/25 21:00> History of Present Illness HPI Narrative: Pt is a 40-year-old male who presents to the ER with complaints of a sudden onset headache that started around 1:00 p.m. today. His significant other reports he had a hemorrhagic stroke at the end of February. Patient endorses nausea and vomiting that started prior to the headache. He reports he has a baseline of right-sided weakness since his most recent CVA. Patient's significant other reports he has a stent in his brain. He denies any visual changes, increased right-sided weakness, chest pain, or shortness of breath. Patient's medical chart indicates he has a history of high blood pressure, chronic kidney disease, and congestive heart failure. <Jelena Heart APRN - Last Filed: 05/01/25 21:00> Related Data Allergies/Adverse reactions: Allergies Allergy/AdvReac Type Severity Reaction Status Date / Time No Known Allergies Allergy Verified 05/01/25 14:17 <Jelena Heart APRN - Last Filed: 05/01/25 21:00> Review of Systems 2 Review of Systems: All systems reviewed & are unremarkable except as noted in HPI and below <Jelena Heart APRN - Last Filed: 05/01/25 21:00> [facility] Past Medical History Medical History: Medical History Hypertensive cardiomyopathy Hypertensive kidney disease with CKD stage III Tobacco use Chronic renal failure Heart failure with reduced ejection fraction EF of 30 to 35% on echocardiogram in July 2021. Hypertension <Jelena Heart APRN - Last Filed: 05/01/25 21:00> Surgical History Surgical History: Surgical History No history of previous surgery <Jelena Heart APRN - Last Filed: 05/01/25 21:00> Family History Family History: Family History Father , at age 53. 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 He lives in [place], alone. He smokes about a pack a week and drinks on the weekends, approximately a few shots and a couple of beers. He also uses marijuana. His mother, Juanita Headley is his emergency contact. Smoking packs per day: 3 Smoking cigarettes per day: 60.0 Years smoked: 23 Smoking pack-years: 69.00 Smoking status: Current every day smoker Tobacco type: cigarettes Second hand tobacco smoke exposure: Yes Alcohol intake: never Alcohol use details: Drinks alcohol on the weekends Substance use: current Substance use type: marijuana Other substance usage details: 3 blunts a week Lack of Transportation: No Lack of Food: Never True Current Housing: I Have Housing Concerned About Future Housing: No Difficulty Paying Gas/Electric Bills: No Difficulty Paying for Meds: No Currently Unemployed: No Education: High School Diploma/GED Difficulty w/ Childcare or Family Care: No Living arrangements: with family Occupation/Education: occupation Spiritual care concerns: No <Jelena Heart APRN - Last Filed: 05/01/25 21:00> Exam 2 Narrative: GENERAL: Ill appearing, well-nourished, non-toxic, in mild distress. HEAD: Normocephalic, atraumatic. PERRLA, 2 mm bilateral NECK: Supple. No adenopathy, no masses. RESPIRATORY: Airway patent, respirations nonlabored. Clear to auscultation bilaterally, no rales, rhonchi, wheezing. CARDIOVASCULAR: Regular rate and rhythm without murmurs, rubs, or gallops. Peripheral pulses 2+ and equal bilaterally. ABDOMINAL: Soft, nontender, nondistended, no hepatosplenomegaly. Normoactive BS. MUSCULOSKELETAL: Moves all extremities. Strength/ROM intact without gross deformities. SKIN: Warm, dry, normal color. No rashes. NEURO: A&O X3. Right-sided weakness at baseline. PSYCHIATRIC: Flat affect. 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 I performed all aspects of the MDM as documented. <Galen Gr MD - Last Filed: 05/01/25 17:13> Vital Signs Vital signs: Vital Signs Temperature 36.8 C 05/01/25 14:22 Pulse Rate 77 05/01/25 14:22 Respiratory Rate 13 05/01/25 14:22 Blood Pressure 206/136 H 05/01/25 14:22 Pulse Oximetry 100 05/01/25 14:22 Oxygen Delivery Room Air 05/01/25 14:22 Temperature 36.8 C 05/01/25 14:22 Pulse Rate 89 05/01/25 19:46 Respiratory Rate 15 05/01/25 19:46 Blood Pressure 150/99 H 05/01/25 19:46 Pulse Oximetry 99 05/01/25 19:46 Oxygen Delivery Room Air 05/01/25 14:22 <Jelena Heart APRN - Last Filed: 05/01/25 21:00> Vital Signs Temperature 36.8 C 05/01/25 14:22 Pulse Rate 77 05/01/25 14:22 Respiratory Rate 13 05/01/25 14:22 Blood Pressure 206/136 H 05/01/25 14:22 Pulse Oximetry 100 05/01/25 14:22 Oxygen Delivery Room Air 05/01/25 14:22 Temperature 36.8 C 05/01/25 14:22 Pulse Rate 89 05/01/25 19:46 Respiratory Rate 15 05/01/25 19:46 Blood Pressure 150/99 H 05/01/25 19:46 Pulse Oximetry 99 05/01/25 19:46 Oxygen Delivery Room Air 05/01/25 14:22 <Galen Gr MD - Last Filed: 05/01/25 17:13> MDM MDM Narrative Medical decision making narrative: Pt is a 40-year-old male who presents to the ER with complaints of a sudden onset headache that started around 1:00 p.m. today. His significant other reports he had a hemorrhagic stroke at the end of February. Patient endorses nausea and vomiting that started prior to the headache. He reports he has a baseline of right-sided weakness since his most recent CVA. Patient's significant other reports he has a stent in his brain. He denies any visual changes, increased right-sided weakness, chest pain, or shortness of breath. Patient's medical chart indicates he has a history of high blood pressure, chronic kidney disease, and congestive heart failure. Labs Ordered: CBC, CMP, PTT, INR, troponin, UA, UDS Imaging Ordered: CTA brain/carotid, chest x-ray Medications Ordered: Hydralazine IV Results: Pt's CT scans indicate CTA brain: The noncontrast images demonstrate a posterior right-sided EARLY CHILDHOOD AIDE CLASSROOM shunt terminating in the right frontal horn. There is a remote appearing left frontal infarct. There is a focus of hemorrhage within the left basal ganglia with surrounding vasogenic edema maximally measuring 1.1 x 1.2 cm with mild midline shift at this level. No gross extra-axial fluid collections are identified. The mastoid air cells, sinuses and orbits appear unremarkable. The basilar artery appears unremarkable. The right posterior cerebral arteries unremarkable. The left posterior cerebral artery appears unremarkable. The right petrous and cavernous ICA segments are within normal limits. The right M1, M2 segments and their branches appear unremarkable. The right A1 and A2 segments are unremarkable. The left petrous and cavernous ICA segments unremarkable. The left M1, M2 segments and their branches are unremarkable. The left A1 and A2 segments appear unremarkable. CTA NECK: The cervical segments of the vertebral arteries appear unremarkable. The left vertebral artery is dominant. The right CCA is unremarkable. Proximal right ICA is tortuous but grossly patent. The left CCA is unremarkable. The proximal left ICA is unremarkable. The visualized parotid and submandibular glands are unremarkable. No lymphadenopathy. The lung apices appear unremarkable. No sclerotic or lytic lesions identified. IMPRESSION: 1. There is no critical stenosis, occlusion or aneurysm identified. Diagnosis: hypertensive crisis, recent hemorrhagic CVA Risks: HEART score, PECARN score, CURB-65 score Consults: 1520- Spoke with neurologist, Dr. Zapata, who advised pt transfer to [facility] for further evaluation and treatment. He advises pt should be started on a Nicardipine gtt to control his blood pressure. Pt will be admitted to the ICU d/t hypertensive crisis. CRITICAL CARE ADDENDUM: Indication: Hypertensive crisis, concern for hemorrhagic stroke Time type: intermittent I provided a total of 35 minutes of critical care excluding separately billable procedures. This includes time w/ EMS, initial bedside evaluation, reviewing old records, review of testing done while under my care, discussion w/ the family, nurses, freight traffic consultant and guiding the patient?s care while in the emergency department. MDM: Results of imaging and lab work shared with patient and his family. It was advised patient be transferred to a tertiary hospital for further evaluation and treatment. Patient and his family verbalized understanding and are in agreement with plan. Although patient has been accepted at [facility] and has a bed in the ICU, patient has chosen to refuse further care. Risks of an incomplete evaluation and treatment were discussed with the patient, including potential for or permanent disability. Patient seems to understand these risks, but still desires to refuse further care. Patient recommended to follow up with PCP in the next possible interval. Specifically, patient was told they can return to the ED at any time to resume care. <Jelena Heart APRN - Last Filed: 05/01/25 21:00> Differential Diagnosis Differential Diagnosis: Hemorrhagic CVA, hypertensive crisis, headache <Jelena Heart APRN - Last Filed: 05/01/25 21:00> Lab Data [facility] Lab Attestation statement: I personally reviewed the patient's lab results. <Jelena Heart APRN - Last Filed: 05/01/25 21:00> Result diagrams: 05/01/25 14:43 05/01/25 14:43 <Jelena Herat APRN - Last Filed: 05/01/25 21:00> Labs: Lab Results 05/01/25 05/01/25 05/01/25 Range/Units 14:31 14:43 15:54 WBC 4.9 (4.5-10.0) K/mm3 RBC 5.32 (4.6-6.20) M/mm3 Hgb 15.4 D (14.0-18.0) g/dL Hct 47.8 (42.0-52.0) % MCV 89.8 (80-100) fl MCH 28.9 (26-34) pg MCHC 32.2 (32-36) g/dl RDW 13.4 (11.5-14.5) % Plt Count 163 (150-375) k/mm3 MPV 9.2 (7.4-10.4) fl Immature Gran % (Auto) 0.4 (0-0.5) % Neut % (Auto) 78.1 H (45.5-73.1) % Lymph % (Auto) 14.4 L (18.3-44.2) % [place] % (Auto) 4.9 (2.6-8.5) % Eos % (Auto) 1.4 (0-4.4) % Baso % (Auto) 0.8 (0.2-1.2) % Lymph # (Auto) 0.71 L (0.9-3.2) K/mm3 [place] # (Auto) 0.2 (0.1-0.6) K/mm3 Eos # (Auto) 0.1 (0-0.3) K/mm3 Baso # (Auto) 0.0 (0.0-0.1) K/mm3 Abs Immat Gran (auto) 0.02 (0.00-0.031) K/mm3 Absolute Neuts (auto) 3.9 (1.3-6.7) K/mm3 Absolute Nucleated RBC 0.000 (0.0-0.012) K/mm3 Nucleated RBC % 0.0 (0.0-0.2) % PT 15.3 H (11.1-14.7) Seconds INR 1.2 APTT 32.9 (22.3-36.8) Seconds Sodium 142 (137-145) mmol/L Potassium 4.8 (3.4-5.0) mmol/L Chloride 108 H (98-107) mmol/L Carbon Dioxide 22 (22-30) mmol/L Anion Gap 12 (4-12) mmol/L BUN 67 H D (9-20) mg/dL Creatinine 4.84 H (0.7-1.3) mg/dL Estim Creat Clear Calc 20 ml/min Estimated GFR 13 L (59 - ) Glucose 165 H (65-110) mg/dL POC Capillary Glucose 159 H (65-105) mg/dl Calcium 10.2 (8.4-10.2) mg/dL Total Bilirubin 0.9 (0.2-1.3) mg/dL AST 24 (17-59) U/L ALT 27 (6-50) U/L Alkaline Phosphatase 85 (38-126) U/L Troponin I 0.075 H* (0.000-0.034) ng/mL Total Protein 9.6 H (6.3-8.2) g/dL Albumin 4.6 (3.5-5.1) g/dL Urine Color Yellow (Yellow) Urine Appearance Clear (Clear) Urine pH 5.5 (5.0-9.0) Ur Specific [place] 1.034 (1.001-1.035) Urine Protein 3+ H (Negative) mg/dL Urine Glucose (UA) Negative (Negative) mg/dL Urine Ketones Negative (Negative) mg/dL Ur Blood (Man) Negative (Negative) Urine Nitrate Negative (Negative) Urine Bilirubin Negative (Negative) Urine Urobilinogen 0.2 (<2.0) mg/dL Leukocyte Esterase Rfl Negative (Negative) KATIE/UL Urine RBC 0-2 (0-2) /hpf Urine WBC 0-5 (0-3) /hpf Ur Squamous Epith Cells None seen (Few) /hpf Urine Bacteria None seen /hpf Urine Casts 3-5 Urine Opiates Screen Negative (Negative) Urine Methadone Screen Negative (Negative) Ur Barbiturates Screen Negative (Negative) Ur Phencyclidine Scrn Negative (Negative) Ur Amphetamine Screen Negative (Negative) U Benzodiazepines Scrn Negative (Negative) Urine Cocaine Screen Negative (Negative) U Cannabinoids Screen Negative (Negative) <Jelena Heart, [employer]ER - Last Filed: 05/01/25 21:00> Lab Results 05/01/25 05/01/25 05/01/25 Range/Units 14:31 14:43 15:54 WBC 4.9 (4.5-10.0) K/mm3 RBC 5.32 (4.6-6.20) M/mm3 Hgb 15.4 D (14.0-18.0) g/dL Hct 47.8 (42.0-52.0) % MCV 89.8 (80-100) fl MCH 28.9 (26-34) pg MCHC 32.2 (32-36) g/dl RDW 13.4 (11.5-14.5) % Plt Count 163 (150-375) k/mm3 MPV 9.2 (7.4-10.4) fl Immature Gran % (Auto) 0.4 (0-0.5) % Neut % (Auto) 78.1 H (45.5-73.1) % Lymph % (Auto) 14.4 L (18.3-44.2) % [place] % (Auto) 4.9 (2.6-8.5) % Eos % (Auto) 1.4 (0-4.4) % Baso % (Auto) 0.8 (0.2-1.2) % Lymph # (Auto) 0.71 L (0.9-3.2) K/mm3 [place] # (Auto) 0.2 (0.1-0.6) K/mm3 Eos # (Auto) 0.1 (0-0.3) K/mm3 Baso # (Auto) 0.0 (0.0-0.1) K/mm3 Abs Immat Gran (auto) 0.02 (0.00-0.031) K/mm3 Absolute Neuts (auto) 3.9 (1.3-6.7) K/mm3 Absolute Nucleated RBC 0.000 (0.0-0.012) K/mm3 Nucleated RBC % 0.0 (0.0-0.2) % PT 15.3 H (11.1-14.7) Seconds INR 1.2 APTT 32.9 (22.3-36.8) Seconds Sodium 142 (137-145) mmol/L Potassium 4.8 (3.4-5.0) mmol/L Chloride 108 H (98-107) mmol/L Carbon Dioxide 22 (22-30) mmol/L Anion Gap 12 (4-12) mmol/L BUN 67 H D (9-20) mg/dL Creatinine 4.84 H (0.7-1.3) mg/dL Estim Creat Clear Calc 20 ml/min Estimated GFR 13 L (59 - ) Glucose 165 H (65-110) mg/dL POC Capillary Glucose 159 H (65-105) mg/dl Calcium 10.2 (8.4-10.2) mg/dL Total Bilirubin 0.9 (0.2-1.3) mg/dL AST 24 (17-59) U/L ALT 27 (6-50) U/L Alkaline Phosphatase 85 (38-126) U/L Troponin I 0.075 H* (0.000-0.034) ng/mL Total Protein 9.6 H (6.3-8.2) g/dL Albumin 4.6 (3.5-5.1) g/dL Urine Color Yellow (Yellow) Urine Appearance Clear (Clear) Urine pH 5.5 (5.0-9.0) Ur Specific [place] 1.034 (1.001-1.035) Urine Protein 3+ H (Negative) mg/dL Urine Glucose (UA) Negative (Negative) mg/dL Urine Ketones Negative (Negative) mg/dL Ur Blood (Man) Negative (Negative) Urine Nitrate Negative (Negative) Urine Bilirubin Negative (Negative) Urine Urobilinogen 0.2 (<2.0) mg/dL Leukocyte Esterase Rfl Negative (Negative) KATIE/UL Urine RBC 0-2 (0-2) /hpf Urine WBC 0-5 (0-3) /hpf Ur Squamous Epith Cells None seen (Few) /hpf Urine Bacteria None seen /hpf Urine Casts 3-5 Urine Opiates Screen Negative (Negative) Urine Methadone Screen Negative (Negative) Ur Barbiturates Screen Negative (Negative) Ur Phencyclidine Scrn Negative (Negative) Ur Amphetamine Screen Negative (Negative) U Benzodiazepines Scrn Negative (Negative) Urine Cocaine Screen Negative (Negative) U Cannabinoids Screen Negative (Negative) <Galen Gr MD - Last Filed: 05/01/25 17:13> Imaging Data Attestation: I personally reviewed and interpreted this imaging study as follows: < Jelena Heart APRN - Last Filed: 05/01/25 21:00> Radiologist's impression: ITS Impressions Head/Neck CTA 05/01/25 14:59 IMPRESSION: 1. There is no critical stenosis, occlusion or aneurysm identified. Chest X-Ray 05/01/25 15:19 Impression: No acute cardiopulmonary abnormality. <Jelena Heart APRN - Last Filed: 05/01/25 21:00> ITS Impressions Head/Neck CTA 05/01/25 14:59 IMPRESSION: 1. There is no critical stenosis, occlusion or aneurysm identified. Chest X-Ray 05/01/25 15:19 Impression: No acute cardiopulmonary abnormality. <Galen Gr MD - Last Filed: 05/01/25 17:13> Critical Care Time Critical Care Time Critical Care Time: Yes <Jelena Heart APRN - Last Filed: 05/01/25 21:00> Time Type: Intermittent <Jelena Heart APRN - Last Filed: 05/01/25 21:00> Initial evaluation, discuss w/ involved parties, attempting to gather old records: 10 minutes <Jelena Heart APRN - Last Filed: 05/01/25 21:00> Documenting medical record: 5 minutes <Jelena Heart APRN - Last Filed: 05/01/25 21:00> Review of results (EKG's, labs, imaging): 5 minutes <Jelena Heart APRN - Last Filed: 05/01/25 21:00> Serial repeat bedside evaluation: 10 minutes <Jelena Heart APRN - Last Filed: 05/01/25 21:00> Discussing case with multiple memebers of the care team and consultants: 5 minutes <Jelena Heart APRN - Last Filed: 05/01/25 21:00> Total Critical Care Time: 35 <Jelena Heart APRN - Last Filed: 05/01/25 21:00> Discharge Plan Discharge Clinical Impression: Hypertensive emergency, Headache, Nausea & vomiting, MIHAI (acute kidney injury) Chronic renal failure Qualifiers: Chronic kidney disease stage: unspecified stage Qualified Code(s): N18.9 - Chronic kidney disease, unspecified <Jelena Heart APRN - Last Filed: 05/01/25 21:00> Patient Disposition: Left Against Medical Advice <Jelena Heart APRN - Last Filed: 05/01/25 21:00> Condition: Guarded Prognosis <Jelena Heart APRN - Last Filed: 05/01/25 21:00> Patient Language: Nigerian <Jelena Heart APRN - Last Filed: 05/01/25 21:00> Prescriptions: No Action carvedilol [Coreg] 25 mg Tablet 25 mg PO Q12HR Qty: 60 0RF doxycycline hyclate 100 mg Tablet 100 mg PO Q12HR Qty: 8 0RF cefdinir 300 mg capsule 300 mg PO BID Qty: 6 0RF nifedipine [Procardia XL] 30 mg Tablet Extended Release 24hr 30 mg PO DAILY 30 Days Qty: 30 0RF furosemide 40 mg Tablet 60 mg PO DAILY Qty: 45 0RF isosorbide dinitrate 30 mg tablet 30 mg PO QID Qty: 120 0RF hydralazine 100 mg tablet 100 mg PO QID Qty: 120 0RF sacubitril-valsartan [Entresto] 49-51 mg Tablet 1 tablet PO Q12HR 30 Days Qty: 60 0RF <Jelena Heart APRN - Last Filed: 05/01/25 21:00> Follow-up/Referrals: Macario Marcum MD [Primary Care Provider, Family Practice] <Jelena Heart APRN - Last Filed: 05/01/25 21:00>
[2025-05-01 14:48] LABS: Hematocrit 47.8 % (42.0-52.0); Hemoglobin 15.4 g/dL (14.0-18.0); Immature Granulocyte Percent A 0.4 % (0-0.5); Lymphocytes Absolute Auto 0.71 K/mm3 (0.9-3.2); Mean Corpuscular HGB Conc 32.2 g/dl (32-36); Mean Corpuscular Hemoglobin 28.9 pg (26-34); Mean Corpuscular Volume 89.8 fl (80-100); Nucleated Red Blood Cells Absolute Auto 0.000 K/mm3 (0.0-0.012); Nucleated Red Blood Cells Perc 0.0 % (0.0-0.2); Platelet Count Result 163 k/mm3 (150-375); Red Blood Count 5.32 M/mm3 (4.6-6.20); White Blood Count 4.9 K/mm3 (4.5-10.0)
[2025-05-01 15:02] LABS: INR 1.2; Prothrombin Time 15.3 Seconds (11.1-14.7)
[2025-05-01 15:03] LABS: Partial Thromboplastin Time 32.9 Seconds (22.3-36.8)
[2025-05-01 15:06] LABS: Alanine Aminotransferase 27 U/L (6-50); Albumin Level 4.6 g/dL (3.5-5.1); Alkaline Phosphatase 85 U/L (38-126); Anion Gap 12 mmol/L (4-12); Aspartate Amino Transferase 24 U/L (17-59); Bilirubin,Total 0.9 mg/dL (0.2-1.3); Blood Urea Nitrogen 67 mg/dL (9-20); Calcium 10.2 mg/dL (8.4-10.2); Carbon Dioxide 22 mmol/L (22-30); Chloride 108 mmol/L (98-107); Estimated CRCL calculation 20 ml/min; Estimated Glomerular Filt Rate 13; Glucose 165 mg/dL (65-110); Potassium 4.8 mmol/L (3.4-5.0); Sodium 142 mmol/L (137-145); Total Protein 9.6 g/dL (6.3-8.2)
[2025-05-01 15:23] LABS: Troponin I 0.075 ng/mL (0.000-0.034)
[2025-05-01 16:06] LABS: Add Urine Microscopic? YES; Appearance Urine Clear (Clear); Glucose Urine UA Negative (Negative); Leukocyte Esterase Ur Negative LEU/UL (Negative); Nitrate Urine Negative (Negative); Specific Grav Ur 1.034 (1.001-1.035)
[2025-05-01 16:19] LABS: Cannabinoid Screen Urine Negative (Negative)
== END 2025-05-01 20:49 | disposition left against medical advice (07) ==
PROVIDERS: Emergency Provider Registered Nurse; PCP Family Medicine
DX: I16.1 Hypertensive emergency (principal); R51.9 Headache, unspecified; R11.2 Nausea with vomiting, unspecified; I13.10 Hypertensive heart and chronic kidney disease without heart failure, with stage 1 through stage 4 chronic kidney disease, or unspecified chronic kidney disease; N18.30 Chronic kidney disease, stage 3 unspecified; N17.9 Acute kidney failure, unspecified; R94.31 Abnormal electrocardiogram [ECG] [EKG]; F17.210 Nicotine dependence, cigarettes, uncomplicated
CPT/HCPCS: 36415; 70496; 70498; 71045; 80053; 80307; 81001; 82948; 84484; 85025; 85610; 85730; 93005; 96365; 96375; 99284; J0360; J2404; Q9967